=== PATIENT | female | born 1945 | race Caucasian/White ===

== ENCOUNTER → 2017-10-14 12:22 | Outpatient (CLI) | payer MEDICARE, SELFPAY ==
[2017-10-14 13:21] LABS: CREATININE 1.74 mg/dL (0.55-1.02); Estimated GFR 28.84 (mL/min/1.73m2); Potassium 4.8 mmol/L (3.5-5.1)
== END ==
PROVIDERS: PCP General Practice; Visit Provider General Practice
DX: I10 Essential (primary) hypertension (principal)
CPT/HCPCS: 36415; 82565; 84132

== ENCOUNTER 2018-02-21 09:21 | Inpatient (IN) | payer MEDICARE, SELFPAY ==
[2018-02-21 09:27] VITALS: BP 194/72; PULSE 60; RESP 20; TEMP 36.5; O2SAT 94
--- NOTE | 2018-02-21 09:44 | ED.GENADUL_ITS ---
Discharge Plan Discharge Details Chief Complaint: Nk/Back Pain Reason For Visit: BACK PAIN Admit Date/Time: 02/21/18 12:42 Admit Provider: Remy Contreras Attending Provider: Remy Contreras Primary Care Provider: Dru Armstrong ED Provider: Neil Thornton Discharge Data Discharge Date/Time-TO BE ENTERED AT DEPARTURE: 02/21/18 13:48 Medical Decision Making History and exam consistent with lumbar strain with possibility of disc herniation. Conflict arose with Flexeril do to peanut allergy, so prescribed Valium PO, Toradol IM 30mg, and lidocaine patch. Will CT lumbar spine. CT results discussed with Dr. Sharpe. No acute oseas pathology but worsening chronic pathology could be cause of acute back pain. Severe degenerative changes, greatest at L1-2 and L3-4 where there is severe central canal stenosis. The findings at L1-L2 have worsened when compared with 2015. I apprised pt. Patient continues to c/o moderate pain. We will have PT come down and consult and try to get patient to stand and walk. If successful we will ask HH to arrange for home PT. Pt agrees with POC. If not successful we will consult hospitalist for admission. Pt does live with her son but she tells me she is alone most of the day and questions what does she do when alone at home. PT was successful at having her stand at bedside. I assisted. She had moderate pain with one step. She could go home with PT but she does not have anyone to assist her during the day time. H&R is not an option being she only has Medicare. CM came down and tried to find someone to stay with her during the day but was unable to find someone. Her son will be off on vacation in couple days so it was recommended she be admitted observation for pain control. Dr. Contreras was agreeable and accepted patient for admission observation. Imaging Data Radiologic Study: Imaging: CT Scan Radiologist's impression: CT LUMBAR SPINE: Comparison is made with CT of the abdomen and pelvis dated 26 October 2014. Images were performed from T 11-12 through the lower sacrum. There is no evidence of an acute fracture or destructive bony lesion. Again noted are severe degenerative changes at L1-2 which shows some interval worsening when compared with the previous exam. There is minimal loss of disc height and prominent broad-based disc osteophytes encroaching in to the posterior aspect of the central canal, causing severe central canal stenosis as well as severe left neural foraminal narrowing. There is moderate right neural foraminal narrowing. At L3-4 there are similar appearing prominent broad based disc osteophytes with annular calcification again causing severe central canal stenosis as well as severe bilateral neural foraminal narrowing, right greater than left. There are small osteophytes at L4-5, combining with degenerative disc changes to produce neural foraminal narrowing. Severe degenerative changes are noted of the facets at L5-S1, causing bilateral neural foraminal narrowing. No acute disc herniation is seen. IMPRESSION: Severe degenerative changes, greatest at L1-2 and L3-4 where there is severe central canal stenosis. The findings at L1-L2 have worsened when compared with 2015. [id number]: Total DLP = 898.62 mGy-cm HPI General Mode of arrival: EMS . Date/Time Provider Initiated Documentation: 02/21/18 09:36 . Limitations to Documentation: no limitations . Information obtained by: patient . History of Present Illness 72 year old F presents to the emergency department with the chief complaint of back pain, described as moderate, HPI Narrative: 72 y/o female came in today via [facility] with c/o low back pain radiating down both legs. She denies any injury. She was walking yesterday during the day with her cane which is her usual with no back pain. Last evening she noticed her low back began to spasm causing pain making her feel unsteady. She switched to her walker. She tried NSAID and Tylenol without much benefit. This morning she tried to get out of bed and walk to the BR. She believed the pain to be much worse and she could not walk. She reports one episode of kelechi diarrhea last night times one but not incontinent. Related Data Home Medications Medication Instructions Recorded Confirmed aspirin 81 mg PO DAILY 02/23/14 02/21/18 atenolol 50 mg PO DAILY 02/23/14 02/21/18 atorvastatin [Lipitor] 80 mg PO DAILY 02/23/14 02/21/18 calcium carbonate-vitamin D3 1 tab PO DAILY 02/23/14 02/21/18 [Calcium 500 With D] hydrochlorothiazide 50 mg PO DAILY 02/23/14 02/21/18 insulin aspart U-100 [Novolog 2 units SQ TID 02/23/14 02/21/18 PenFill U-100 Insulin] insulin glargine [Lantus U-100 25 unit SUB-Q HS 02/23/14 02/21/18 Insulin] metformin 1,000 mg PO BID 02/23/14 02/21/18 insulin detemir U-100 [Levemir 29 unit SUBCUT .QHS 02/21/18 02/21/18 FlexTouch U-100 Insuln] Allergies Allergy/AdvReac Type Severity Reaction Status Date / Time codeine Allergy Severe Swelling/Ed Unverified 02/21/18 10:16 warner furosemide [From Lasix] Allergy Severe Swelling/Ed Unverified 02/21/18 10:16 warner morphine Allergy Severe Swelling/Ed Unverified 02/21/18 10:16 warner peanut Allergy Severe Unverified 02/21/18 10:16 tree nut Allergy Severe Unverified 02/21/18 10:16 acetaminophen [From Percocet] Allergy Intermediate ITCHY Unverified 02/21/18 10: 16 adhesive tape Allergy Intermediate Skin Rash Unverified 02/21/18 10:16 oxycodone HCl [From Percocet] Allergy Intermediate ITCHY Unverified 02/21/18 10: 16 apricot Allergy Unknown Uncoded 02/21/18 10:16 General Stated Complaint: Nk/Back Pain GERALDINE: 3 Review of Systems ENT Reports system reviewed and no additional complaints, except as docu Cardiovascular Reports system reviewed and no additional complaints, except as docu Respiratory Reports system reviewed and no additional complaints, except as docu Gastrointestinal Reports diarrhea Genitourinary Reports system reviewed and no additional complaints, except as docu Musculoskeletal Reports abnormal gait, Reports back pain and Reports radiating pain into limb Integumentary/Breasts Reports system reviewed and no additional complaints, except as docu Neurologic Reports system reviewed and no additional complaints, except as docu and Reports abnormal gait PFSH Spinal stenosis, lumbar (Acute) HTN (hypertension) (Chronic) Insulin dependent diabetes mellitus (Chronic) YARELY (obstructive sleep apnea) (Chronic) Biopsy, Temporal Artery (01/18/15) Colonoscopy - MAC (08/14/16) Family History Mother Heart disease Father Heart disease Lung cancer Brother Heart disease Medical History Spinal stenosis, lumbar (Acute) HTN (hypertension) (Chronic) Insulin dependent diabetes mellitus (Chronic) YARELY (obstructive sleep apnea) (Chronic) Social History Smoking/Tobacco Use Status: Never Surgical History Biopsy, Temporal Artery (01/18/15) Colonoscopy - MAC (08/14/16) Social History Smoking/Tobacco Use Status: Never Exam Const General: cooperative, healthy appearing, comfortable and no acute distress Nutritional Appearance: obese Orientation: alert, awake and oriented x3 HENMT Head: atraumatic Ears: hearing grossly normal bilaterally and external ears normal General nose exam: external nose normal Eyes General: appearance normal, both eyes and all related structures Neck Neck: full ROM and no lymphadenopathy Resp Effort & Inspection: normal respiratory effort Auscultation: clear to auscultation bilaterally Cardio Rate: regular rate Rhythm: regular rhythm GI Inspection: non-distended Palpation: soft and nontender Auscultation: normal bowel sounds Back/Spine/Pelvis Back: no CVA tenderness and back tenderness (across lumbar region) Cervical Spine: normal cervical lordosis, cervical ROM normal and No cervical spinal tenderness Thoracic/Lumbar Spine: thoracic and lumbar spine normal to inspection, pain with thoraco-lumbar ROM, paraspinal tenderness, thoraco-lumbar ROM limited, No thoracic spinal tenderness, lumbar spinal tenderness and straight leg raise positive Pelvis: no pain with anterior-posterior compression Sacroiliac joints: bilaterally by passive hyperextension of lower ext Sacrum: tenderness Coccyx: tenderness Skin General skin exam: no rashes or lesions noted Neuro General: alert, awake, oriented x3 and no focal motor deficits Cognition: normal cognition Speech: speech normal Gait: normal gait Motor: muscle tone normal throughout Sensory Exam: no sensory deficits noted Extrem General: normal to inspection, abnormal ROM (limited secondary to pain. Normal upper extremity ROM. ), normal capillary refill and no calf tenderness Psych Appearance: grossly normal Mental Status: mental status grossly normal Speech and Movement: speech and movement normal Mood: congruent mood Affect: normal affect Attitude: cooperative Thought Process: normal Thought Content: normal Insight: insight good Judgment: judgment good Course Vital Signs Temperature 36.5 C 02/21/18 09:27 Pulse 60 02/21/18 09:27 Respiratory Rate 20 02/21/18 09:27 Blood Pressure 194/72 H 02/21/18 09:27 Pulse Oximetry 94 L 02/21/18 09:27 Temperature 36.5 C 02/21/18 09:27 Temperature Source Temporal Artery Scan 02/21/18 09:27 Pulse 60 02/21/18 09:27 Respiratory Rate 20 02/21/18 09:27 Respiratory Effort Non-Labored 02/21/18 09:27 Blood Pressure 194/72 H 02/21/18 09:27 Blood Pressure Position Supine 02/21/18 09:27 Pulse Oximetry 94 L 02/21/18 09:27 Oxygen Delivery Method Room Air 02/21/18 09:27 Oxygen Flow Rate 0 02/21/18 09:27 Pain Level 10 02/21/18 09:27
[2018-02-21] MEDS: Diazepam 2 MG TAB PO (09:45)
[2018-02-21] MEDS: Ketorolac 30 MG/ML VIAL IM (09:45)
--- NOTE | 2018-02-21 10:09 | DI.CT_ITS ---
SYMPTOM/DIAGNOSIS: PAIN ACROSS BUTTOCKS AND DOWN BOTH LEGS CT LUMBAR SPINE: Comparison is made with CT of the abdomen and pelvis dated 26 October 2014. Images were performed from T 11-12 through the lower sacrum. There is no evidence of an acute fracture or destructive bony lesion. Again noted are severe degenerative changes at L1-2 which shows some interval worsening when compared with the previous exam. There is minimal loss of disc height and prominent broad-based disc osteophytes encroaching in to the posterior aspect of the central canal, causing severe central canal stenosis as well as severe left neural foraminal narrowing. There is moderate right neural foraminal narrowing. At L3-4 there are similar appearing prominent broad based disc osteophytes with annular calcification again causing severe central canal stenosis as well as severe bilateral neural foraminal narrowing, right greater than left. There are small osteophytes at L4-5, combining with degenerative disc changes to produce neural foraminal narrowing. Severe degenerative changes are noted of the facets at L5-S1, causing bilateral neural foraminal narrowing. No acute disc herniation is seen. IMPRESSION: Severe degenerative changes, greatest at L1-2 and L3-4 where there is severe central canal stenosis. The findings at L1-L2 have worsened when compared with 2015.
--- NOTE | 2018-02-21 11:51 | PT.INIE ---
Date of service: 02/21/18 Time of Service: 11:51 PT Notes Inpatient Physical Therapy Evaluation Date: 02/21/2018 Referring Doctor: Neil Thornton PT Orders: PT CONSULT: 72-year-old in the ED via ambulance for acute inability to walk due to back pain. Would like to discharge with home PT if successful evaluation ambulation here in the ED. Precautions: Fall precautions, back precautions Patient Profile/Admitting Diagnosis: Patient is a 72-year-old female presenting to the emergency department with sudden onset low back pain that started last night without evidence of trauma, lifting or fall. MD diagnosis lumbar strain, possible disc herniation. PMHX: Low back pain with sciatica left lower extremity, morbid obesity, arthritis, diabetes mellitus type 2, bilateral total knee arthroplasties, right rotator cuff repair, history of multiple fractures including ribs elbow and nose, pickwickian syndrome, obstructive sleep apnea, hypertension, congestive heart failure, hypercholesterolemia, hysterectomy Social History/Home Situation: Lives in [place] with her son 3-4 steps with railing to enter, no stairs inside. Baseline mobility independent gait with single-point cane household distances, does have front wheel walker normally does not use it however use it last night and this morning due to her back pain. Independent with ADLs. Equipment Owned/DME: Cane, FW W Subjective: Patient reports she has had this type of back pain in the past, but reports this is worse than her previous episode. She reports constant pain across lower lumbar spine with radiating pain down posterior bilateral legs left greater than right. Pain is primarily with positional changes and movement and use of lumbar paraspinal muscles. She is agreeable to PT consult. She states her son lives with her and works at [employer], so she is home alone during the day when he is working. She states she would not be able to get up to use the bathroom or move around by herself at this time due to her back pain and she is concerned about going home alone. Objective: General Observation: Lidocaine patch on lower lumbar spine Mental Status: A and O x3 Pain: Reports 10 out of 10 pain that is constant lower lumbar spine crossed hips, with radiating pain down posterior legs left greater than right Palpation: Patient tender to palpation lumbar paraspinals and lumbar spine L3 through L5, bilateral quadratus lumborum, bilateral gluteus medius left> right Special tests: Positive straight leg raise on left, negative slump test ROM: Right Upper Extremity: AROM shoulder flexion 90 degrees, elbow and wrist WNL Left Upper Extremity: AROM WNL Right Lower Extremity: AROM WFL Left Lower Extremity: AROM WFL Strength: Right Upper Extremity: 1/ 5 shoulder flexion, 4/5 bicep, 4/5 grinding machine operator Left Upper Extremity: 4/5 shoulder flexion, 4/5 bicep, 4/5 grinding machine operator Right Lower Extremity: 2/ 5 hip flexion with low back pain, 3/5 quad, 5/5 DF and PF Left Lower Extremity: 2/ 5 hip flexion with low back pain, 3/5 quad, 5/5 DF and PF Sensation: Sensation appears intact to light touch and proprioception throughout lumbar spinal region lateral hips and lower extremities, kinesthetic awareness and motor control appears intact. Bed Mobility/Transfers: Supine to sit: HOB 30 degrees, independent Sit to stand: CGA with FWW Stand to sit: SBA Sit to supine: Min assist for lower extremities due to high degree knee and low back pain Gait: CGA with FWW 2 steps forward and backward, 4 sidesteps to the left. Patient reporting constant low back pain with standing and gait training. Balance: Static Sitting: Normal Dynamic Sitting: Normal Static Standing: Fair Dynamic Standing: Fair Special Tests: Mobility Limitations Standardized Measure [facility] AM-PAC 6 clicks Basic Mobility Inpatient Short Form: Raw Score: 14 standardized Score: 38.10 CMS Score: 61.29% CMS Modifier: CL Informed Consent/Education: Patient instructed in purpose of PT consult and plan of care. Assessment: Patient is a 72-year-old female presenting to the emergency department with sudden onset low back pain that started last night without evidence of trauma, lifting or fall. MD diagnosis lumbar strain, possible disc herniation in setting of history Low back pain with sciatica left lower extremity, morbid obesity, arthritis, diabetes mellitus type 2, bilateral total knee arthroplasties, right rotator cuff repair. Patient presents with clinical signs and symptoms consistent with lumbar strain with sciatica left greater than right, as demonstrated by the following impairment level findings: Pain in lumbar spine, quadratus lumborum, gluteus medius, with radiating pain into posterior lower extremities left greater than right. Pain is affecting her ability to sit at the edge of the bed stand with front wheel walker, she is only able to take 2 steps at this time due to pain. She is unable to do stairs due to pain. Patient should be able to return to home setting with home PT follow-up and pain management strategies, concern is that patient would be home alone due to her son working, and she is unable to get herself up to independently toilet, change position or get food at this time due to back pain. Recommend support of case management to see if son or family can be with her at discharge until pain management improves and home PT is initiated. Patient has all equipment needed at home set. Impairments are contributing to the following functional limitations: AMPAC score CMS Score: 61.29% Patient is assessed as a High [id number] complexity based on the following: History: See above Examination: See above Presentation: Evolving Decision Making: AMPAC score CMS Score: 61.29% Goals: Not applicable Plan of Care/Treatment Plan: PT eval only DISCHARGE RECOMMENDATIONS: Home with home PT if family can be present at discharge and be with her for the first 48 hours, until pain has improved and mobility has improved. Patient has all DME Patient has received PT at [facility] [place] for similar problem in 2017 TREATMENT CODE/TIME: 45 minutes IE 12:15 G Codes in the area mobility of walking and moving around: current status [id number] CL; projected status GP [id number]. Discharge status (if discharging) GP [id number] CL based on AMPAC score CMS Score: 61.29% Halle Bradley PT Disclaimer: This note was created using [employer] voice recognition software. It was reviewed for major content. However, there may be multiple small discrepancies and errors due to the voice recognition aspects of the software.
--- NOTE | 2018-02-21 12:05 | IN_ITS ---
Date of service: 02/21/18 Time of Service: 11:51 PT Notes Inpatient Physical Therapy Evaluation Date: 02/21/2018 Referring Doctor: Neil Thornton PT Orders: PT CONSULT: 72-year-old in the ED via ambulance for acute inability to walk due to back pain. Would like to discharge with home PT if successful evaluation ambulation here in the ED. Precautions: Fall precautions, back precautions Patient Profile/Admitting Diagnosis: Patient is a 72-year-old female presenting to the emergency department with sudden onset low back pain that started last night without evidence of trauma, lifting or fall. MD diagnosis lumbar strain, possible disc herniation. PMHX: Low back pain with sciatica left lower extremity, morbid obesity, arthritis, diabetes mellitus type 2, bilateral total knee arthroplasties, right rotator cuff repair, history of multiple fractures including ribs elbow and nose , pickwickian syndrome, obstructive sleep apnea, hypertension, congestive heart failure, hypercholesterolemia, hysterectomy Social History/Home Situation: [place] in [place] with her son 3-4 steps with railing to enter, no stairs inside. Baseline mobility independent gait with single-point cane household distances, does have front wheel walker normally does not use it however use it last night and this morning due to her back pain. Independent with ADLs. Equipment Owned/DME: Cane, FW W Subjective: Patient reports she has had this type of back pain in the past, but reports this is worse than her previous episode. She reports constant pain across lower lumbar spine with radiating pain down posterior bilateral legs left greater than right. Pain is primarily with positional changes and movement and use of lumbar paraspinal muscles. She is agreeable to PT consult. She states her son lives with her and works at [employer], so she is home alone during the day when he is working. She states she would not be able to get up to use the bathroom or move around by herself at this time due to her back pain and she is concerned about going home alone. Objective: General Observation: Lidocaine patch on lower lumbar spine Mental Status: A and O x3 Pain: Reports 10 out of 10 pain that is constant lower lumbar spine crossed hips , with radiating pain down posterior legs left greater than right Palpation: Patient tender to palpation lumbar paraspinals and lumbar spine L3 through L5, bilateral quadratus lumborum, bilateral gluteus medius left> right Special tests: Positive straight leg raise on left, negative slump test ROM: Right Upper Extremity: AROM shoulder flexion 90 degrees, elbow and wrist WNL Left Upper Extremity: AROM WNL Right Lower Extremity: AROM WFL Left Lower Extremity: AROM WFL Strength: Right Upper Extremity: 1/ 5 shoulder flexion, 4/5 bicep, 4/5 link cutter Left Upper Extremity: 4/5 shoulder flexion, 4/5 bicep, 4/5 link cutter Right Lower Extremity: 2/ 5 hip flexion with low back pain, 3/5 quad, 5/5 DF and PF Left Lower Extremity: 2/ 5 hip flexion with low back pain, 3/5 quad, 5/5 DF and PF Sensation: Sensation appears intact to light touch and proprioception throughout lumbar spinal region lateral hips and lower extremities, kinesthetic awareness and motor control appears intact. Bed Mobility/Transfers: Supine to sit: HOB 30 degrees, independent Sit to stand: CGA with FWW Stand to sit: SBA Sit to supine: Min assist for lower extremities due to high degree knee and low back pain Gait: CGA with FWW 2 steps forward and backward, 4 sidesteps to the left. Patient reporting constant low back pain with standing and gait training. Balance: Static Sitting: Normal Dynamic Sitting: Normal Static Standing: Fair Dynamic Standing: Fair Special Tests: Mobility Limitations Standardized Measure [facility] AM-PAC 6 clicks Basic Mobility Inpatient Short Form: Raw Score: 14 standardized Score: 38.10 CMS Score: 61.29% CMS Modifier: CL Informed Consent/Education: Patient instructed in purpose of PT consult and plan of care. Assessment: Patient is a 72-year-old female presenting to the emergency department with sudden onset low back pain that started last night without evidence of trauma, lifting or fall. MD diagnosis lumbar strain, possible disc herniation in setting of history Low back pain with sciatica left lower extremity, morbid obesity, arthritis, diabetes mellitus type 2, bilateral total knee arthroplasties, right rotator cuff repair. Patient presents with clinical signs and symptoms consistent with lumbar strain with sciatica left greater than right, as demonstrated by the following impairment level findings: Pain in lumbar spine, quadratus lumborum, gluteus medius, with radiating pain into posterior lower extremities left greater than right. Pain is affecting her ability to sit at the edge of the bed stand with front wheel walker, she is only able to take 2 steps at this time due to pain. She is unable to do stairs due to pain. Patient should be able to return to home setting with home PT follow-up and pain management strategies, concern is that patient would be home alone due to her son working, and she is unable to get herself up to independently toilet, change position or get food at this time due to back pain. Recommend support of case management to see if son or family can be with her at discharge until pain management improves and home PT is initiated. Patient has all equipment needed at home set. Impairments are contributing to the following functional limitations: AMPAC score CMS Score: 61.29% Patient is assessed as a High [id number] complexity based on the following: History: See above Examination: See above Presentation: Evolving Decision Making: AMPAC score CMS Score: 61.29% Goals: Not applicable Plan of Care/Treatment Plan: PT eval only DISCHARGE RECOMMENDATIONS: Home with home PT if family can be present at discharge and be with her for the first 48 hours, until pain has improved and mobility has improved. Patient has all DME Patient has received PT at [facility] [place] for similar problem in 2017 TREATMENT CODE/TIME: 45 minutes IE 12:15 G Codes in the area mobility of walking and moving around: current status [id number] CL; projected status GP [id number]. Discharge status (if discharging) GP [id number] CL based on AMPAC score CMS Score: 61.29% Halle Bradley PT Disclaimer: This note was created using [employer] voice recognition software. It was reviewed for major content. However, there may be multiple small discrepancies and errors due to the voice recognition aspects of the software.
--- NOTE | 2018-02-21 13:33 | W.PM.HP.N ---
Date of service: 02/21/18 Time of Service: 13:33 Assessment and Plan (1) Type II diabetes mellitus: Current visit: No Status: Chronic Carbohydate counting diet. Continue home Levemir and Novolog in addition to sliding scale for meal coverage. Fingersticks ACHS (2) Hypertension: Current visit: No Status: Chronic Hypertensive upon presentation, however I suspect this is related to pain response. No med changes. Continue BB, thiazide diuretic. Could consider adding CCB if BP remains elevated. Would avoid ACEI/ARB due to poor renal function with baseline Cr 1.7-2. (3) Hyperlipidemia: Current visit: No Status: Chronic Continue statin, ADA diet. (4) Morbid obesity: Current visit: No Status: Chronic Would benefit from weight loss in the management of her chronic medical and orthopedic problems. (5) Obstructive sleep apnea: Current visit: No Status: Suspected Currently not treated with CPAP. Lost to follow up with pulmonology. This is something that can be managed through her PCP. (6) Low back pain: Current visit: Yes Status: Acute With radiculopathy/muscle spasms and severe spinal stenosis seen on CT imaging at L1-2 and L3-4. Noticed minimal improvement with valium, lidoderm patch. Will put on prednisone burst. PT/OT consult. History of Present Illness Chief Complaint: Low Back Pain Narrative: Jane is a 72-year-old woman with multiple medical comorbidities notable for morbid obesity, insulin-dependent type 2 diabetes, hypertension, hyperlipidemia, history of congestive heart failure (EF 60% 2013), hx lumbar spinal stenosis who presents to the ER today via EMS with complaints of acute on chronic low back pain. Jane has chronic LBP that became acutely worse last night. Does not recall a specific injury. Had some difficulty ambulating and required the assistance of a walker. Last night she had one episode of watery diarrhea, but denies any incontinence. The pain is described as stabbing and radiates down both legs. Last night had some associated numbness in both of her feet, however this has since resolved. Was having some muscle spasm, however nothing currently, otherwise denies associated s/sx. In the ER she was evaluated by PT and had difficulty ambulating. Lumbar CT shows severe degenerative changes, greatest at L1-L2 and L3-L4 where there is severe central canal stenosis. The findings at L1 and L2 have worsened when compared with imaging obtained in 2015. Review of Systems Review of Systems 10 point ROS obtained with pertinent positives noted in HPI, otherwise negative PFSH Spinal stenosis, lumbar (Acute) HTN (hypertension) (Chronic) Insulin dependent diabetes mellitus (Chronic) YARELY (obstructive sleep apnea) (Chronic) Biopsy, Temporal Artery (01/18/15) Colonoscopy - MAC (08/14/16) Family History Mother Heart disease Father Heart disease Lung cancer Brother Heart disease Medical History Spinal stenosis, lumbar (Acute) HTN (hypertension) (Chronic) Insulin dependent diabetes mellitus (Chronic) YARELY (obstructive sleep apnea) (Chronic) Social History Smoking/Tobacco Use Status: Never Surgical History Biopsy, Temporal Artery (01/18/15) Colonoscopy - MAC (08/14/16) Social History Smoking/Tobacco Use Status: Never Meds Home Medications Medication Instructions Recorded Confirmed Type aspirin 81 mg PO DAILY 02/23/14 02/21/18 History atenolol 50 mg PO DAILY 02/23/14 02/21/18 History atorvastatin [Lipitor] 80 mg PO DAILY 02/23/14 02/21/18 History calcium carbonate-vitamin D3 1 tab PO DAILY 02/23/14 02/21/18 History [Calcium 500 With D] hydrochlorothiazide 50 mg PO DAILY 02/23/14 02/21/18 History insulin aspart U-100 [Novolog 2 units SQ TID 02/23/14 02/21/18 History PenFill U-100 Insulin] insulin glargine [Lantus U-100 25 unit SUB-Q HS 02/23/14 02/21/18 History Insulin] metformin 1,000 mg PO BID 02/23/14 02/21/18 History insulin detemir U-100 [Levemir 29 unit SUBCUT .QHS 02/21/18 02/21/18 History FlexTouch U-100 Insuln] Allergies Allergy/AdvReac Type Severity Reaction Status Date / Time codeine Allergy Severe Swelling/Ed Unverified 02/21/18 10:16 warner furosemide [From Lasix] Allergy Severe Swelling/Ed Unverified 02/21/18 10:16 warner morphine Allergy Severe Swelling/Ed Unverified 02/21/18 10:16 warner peanut Allergy Severe Unverified 02/21/18 10:16 tree nut Allergy Severe Unverified 02/21/18 10:16 acetaminophen [From Percocet] Allergy Intermediate ITCHY Unverified 02/21/18 10:16 adhesive tape Allergy Intermediate Skin Rash Unverified 02/21/18 10:16 oxycodone HCl [From Percocet] Allergy Intermediate ITCHY Unverified 02/21/18 10:16 apricot Allergy Unknown Uncoded 02/21/18 10:16 Exam Narrative Exam Narrative: General: 72 yo morbidly obese female. Well developed and well nourished. No acute distress. A/Ox3. Pleasant and cooperative. HEENT: Normocephalic, Atraumatic. Conjunctiva clear, sclera non-icteric. PERRL. EOMI. Moist mucous membranes, oropharynx clear. Neck supple, no JVD, thyromegaly or lymphadenopathy. Cardiovascular: Regular rate and rhythm, S1S2, no S3 or S4. No murmur, rub, gallop. Respiratory: Chest expansion symmetrical, respirations unlabored. Lungs diminished , no adventitious breath sounds. GI: Abdomen round, Obese, soft, non-tender to palpation. Normoactive bowel sounds in all 4 quadrants. No hepatosplenomegaly or prominent masses. : deferred Extremities: Lower extremities without deformity or edema Neurological: non-focal. CN 2-12 grossly intact. Musckuloskeletal: Paraspinal tenderness lumbar spine, decreased ROM, + straight leg raise BLE Results Last Vital Signs Temp 36.5 C 02/21/18 09:27 Pulse 60 02/21/18 09:27 Resp 20 02/21/18 09:27 BP 194/72 H 02/21/18 09:27 Pulse Ox 94 L 02/21/18 09:27
[2018-02-21 13:50] VITALS: BP 145/70; PULSE 64; RESP 20; TEMP 36.9; O2SAT 994
[2018-02-21 13:51] VITALS: BP 192/45; PULSE 63; RESP 18; TEMP 37.2; O2SAT 93
[2018-02-21 14:33] VITALS: BP 192/45; PULSE 62; RESP 18; TEMP 37.2; O2SAT 93
--- NOTE | 2018-02-21 15:02 | CMPROGNOTE_ITS ---
- If Service Date Differs Date of service: 02/21/18 Time of Service: 15:00 Care Management Progress Note JUDAH received a call from Jonathan Thornton NP, as Jane is unable to ambulate with PT at this time due to pain and weakness. JUDAH spoke with Jane whom states that her son works at [employer] and will not be home today or tomorrow evening. Discussed pain management with OLLIE Castillo, whom states that he feels as though Mohan should be admitted observation for pain management. Mohan is in agreement with this plan.
[2018-02-21 16:00] VITALS: BP 157/76; PULSE 64; RESP 19; TEMP 36.9; O2SAT 92
[2018-02-21] MEDS: metFORMIN 500 MG TAB 1000 MG PO (17:21)
[2018-02-21] MEDS: Insulin Aspart 300 UNITS/3 ML PEN SC ×2 (17:25→17:26)
[2018-02-21] MEDS: predniSONE 20 MG TAB 60 MG PO (18:14)
[2018-02-21] MEDS: Heparin 5,000 UNITS/ML VIAL 5000 UNITS SC (18:14)
--- NOTE | 2018-02-21 19:06 | NUR.NOTE ---
patient has lidnocaine patch to the lower back
[2018-02-21] MEDS: traMADol 50 MG TAB 100 MG PO (21:42)
[2018-02-21] MEDS: LIDOCAINE Patch Removal 1 EACH TD (22:21)
[2018-02-22] VITALS (9 sets, daily range): BP systolic 121–185; BP diastolic 62–74; PULSE 63–74; RESP 18–20; TEMP 35.9–36.3; O2SAT 90–98
[2018-02-22] MEDS: Heparin 5,000 UNITS/ML VIAL 5000 UNITS SC ×3 (02:41→17:09)
[2018-02-22] MEDS: traMADol 50 MG TAB 100 MG PO (04:11)
[2018-02-22 07:45] LABS: HCT 37.1 % (36.0-46.0); HGB 11.7 g/dL (12.0-15.5); Mean Corp. HGB Concentration 31.5 g/dL (32.0-36.0); Mean Corpuscular Hemoglobin 29.4 pg (27.0-33.0); Mean Corpuscular Volume 93.2 fL (80-95); Mean Platelet Volume 10.7 fL (8.0-11.0); Platelet Count 237 x1000/uL (130-400); RBC 3.98 m/cumm (4.00-5.20); White Blood Cell Count 7.22 k/cumm (4.4-10.8)
[2018-02-22] MEDS: Insulin Aspart 300 UNITS/3 ML PEN SC ×6 (08:29→17:10)
[2018-02-22] MEDS: Atenolol 50 MG TAB PO (08:32)
[2018-02-22] MEDS: metFORMIN 500 MG TAB 1000 MG PO ×2 (08:33→17:09)
[2018-02-22] MEDS: predniSONE 20 MG TAB 60 MG PO (08:33)
[2018-02-22] MEDS: Docusate Sodium 100 MG CAP PO (09:14)
[2018-02-22] MEDS: Aspirin 81 MG CHEW PO (10:01)
--- NOTE | 2018-02-22 11:33 | OT.INIE ---
Occupational Therapy Notes Inpatient Occupational Therapy Evaluation Date: 02/22/18 Referring Doctor:Nancy Hutton OT Orders: Assess ability to perform ADLs Precautions: Fall Precautions, Back Precautions PATIENT PROFILE/ADMITTING DIAGNOSIS: Pt is a 72 year old female who was admitted to [facility] through the ER on 02/21/18 after pt was brought to [facility] via ambulance for LBP. Pt is currently being seen for observation of pain control. Past Medical History: Low back pain with sciatica left lower extremity, morbid obesity, arthritis, diabetes mellitus type 2, bilateral total knee arthroplasties, right rotator cuff repair, history of multiple fractures including ribs elbow and nose, pickwickian syndrome, obstructive sleep apnea, hypertension, congestive heart failure, hypercholesterolemia, hysterectomy. Social History/Home Situation: Pt lives in a private home with her son. She reports that she is fairly (I) with ADL/IADL routines reporting that she no longer drives due to CHF and that she needs (A) with washing her back, and (B) LE, donning and doffing (B) socks. Otherwise she reports she is able to perform everything (I). Equipment owned/DME: Cane, FWW, grab bars SUBJECTIVE: Pt was sitting in bed when OT arrived and agreeable to OT session. OBJECTIVE: General Observation: IV (L) UE Mental Status: A&Ox3 Pain: 4-5/10 pain in lower back ROM: RUE Shoulder flexion limited to 100*, elbow and wrist WNL L UE AROM WNL STRENGTH: RUE 2/5 shoulder flexion, 4/5 bicep, 4/5 bit sharpener operator LUE 4/5 throughout FUNCTIONAL MOBILITY/ADLS: Transfers Supine-sit (I) Sit-Stand S, FWW Stand-sit S, FWW Bed-Chair S, FWW Chair-bed S, FWW BATHING Sitting in chair in hospital setting Bathing UE (I) face, (B) UE, abdomen, Max (A) back Bathing LE (I) pelvic area, (I) upper thighs, Max (A) lower legs DRESSING Dressing UE (I) hospital gown Dressing LE Max (A) socks which pt reports is baseline. BALANCE: Static sitting Normal Dynamic Sitting Normal Static Standing Good Dynamic Standing Good SPECIAL TESTS: Daily Activity Limitations Standardized Measure [facility] AM -PAC ?6 clicks? Daily Activity Inpatient Short Form: Raw score: 21 Standardized score: 44.27 CMS score: 32.79% CMS modifier: CJ INFORMED CONSENT/EDUCATION: Pt instructed in purpose of OT Consult and plan of care. ASSESSMENT: Patient is a 72-year-old female referred to occupational therapy services with diagnosis of LBP who was admitted via ambulance to the ER on 02/21/18 in setting of Low back pain with sciatica left lower extremity, morbid obesity, arthritis, diabetes mellitus type 2, bilateral total knee arthroplasties, right rotator cuff repair, history of multiple fractures including ribs elbow and nose, pickwickian syndrome, obstructive sleep apnea, hypertension, congestive heart failure, hypercholesterolemia, hysterectomy. Pt was seen for OT consult only as pt demonstrated baseline (I) in ADL routine per pt report. OT recommends the pt return home with home OT. Pt was seen at [facility] previously for related issue. D/C pt from skilled OT services. AMPAC score 21, CMS score 32.79% Patient is assessed as a Moderate 13407 complexity based on the following: History: See Above Examination: See Above Presentation: Evolving Decision Making: AMPAC score 21, CMS score 32.79% GOALS N/A PLAN OF CARE/TREATMENT PLAN: OT consult only DISCHARGE RECOMMENDATIONS Home when medically cleared per MD with OT with family member Recommend shower chair to increase pts safety in bathing routine. TREATMENT TIME/MINUTES/CODES 40 min IE, Self care x2, (09:40) G Codes in the area of self- : washing oneself, toileting, dressing, eating and drinking, current status GO [id number] CJ projected status GO [id number]. Discharge status (if discharging) GO [id number]. Based on AMPAC score 21, CMS score 32.79%. Azul Stoll OTR/Jh
--- NOTE | 2018-02-22 11:49 | OTIE_ITS ---
Occupational Therapy Notes Inpatient Occupational Therapy Evaluation Date: 02/22/18 Referring Doctor:Nancy Hutton OT Orders: Assess ability to perform ADLs Precautions: Fall Precautions, Back Precautions PATIENT PROFILE/ADMITTING DIAGNOSIS: Pt is a 72 year old female who was admitted to [facility] through the ER on 02/21/18 after pt was brought to [facility] via ambulance for LBP. Pt is currently being seen for observation of pain control. Past Medical History: Low back pain with sciatica left lower extremity, morbid obesity, arthritis, diabetes mellitus type 2, bilateral total knee arthroplasties, right rotator cuff repair, history of multiple fractures including ribs elbow and nose, pickwickian syndrome, obstructive sleep apnea, hypertension, congestive heart failure, hypercholesterolemia, hysterectomy. Social History/Home Situation: Pt lives in a private home with her son. She reports that she is fairly (I) with ADL/IADL routines reporting that she no longer drives due to CHF and that she needs (A) with washing her back, and (B) LE, donning and doffing (B) socks. Otherwise she reports she is able to perform everything (I). Equipment owned/DME: Cane, FWW, grab bars SUBJECTIVE: Pt was sitting in bed when OT arrived and agreeable to OT session. OBJECTIVE: General Observation: IV (L) UE Mental Status: A&Ox3 Pain: 4-5/10 pain in lower back ROM: RUE Shoulder flexion limited to 100*, elbow and wrist WNL L UE AROM WNL STRENGTH: RUE 2/5 shoulder flexion, 4/5 bicep, 4/5 supervisor steel division LUE 4/5 throughout FUNCTIONAL MOBILITY/ADLS: Transfers Supine-sit (I) Sit-Stand S, FWW Stand-sit S, FWW Bed-Chair S, FWW Chair-bed S, FWW BATHING Sitting in chair in hospital setting Bathing UE (I) face, (B) UE, abdomen, Max (A) back Bathing LE (I) pelvic area, (I) upper thighs, Max (A) lower legs DRESSING Dressing UE (I) hospital gown Dressing LE Max (A) socks which pt reports is baseline. BALANCE: Static sitting Normal Dynamic Sitting Normal Static Standing Good Dynamic Standing Good SPECIAL TESTS: Daily Activity Limitations Standardized Measure [facility] AM -PAC ?6 clicks? Daily Activity Inpatient Short Form: Raw score: 21 Standardized score: 44.27 CMS score: 32.79 % CMS modifier: CJ INFORMED CONSENT/EDUCATION: Pt instructed in purpose of OT Consult and plan of care. ASSESSMENT: Patient is a 72-year-old female referred to occupational therapy services with diagnosis of LBP who was admitted via ambulance to the ER on 02/21 in setting of Low back pain with sciatica left lower extremity, morbid obesity, arthritis, diabetes mellitus type 2, bilateral total knee arthroplasties, right rotator cuff repair, history of multiple fractures including ribs elbow and nose, pickwickian syndrome, obstructive sleep apnea, hypertension, congestive heart failure, hypercholesterolemia, hysterectomy. Pt was seen for OT consult only as pt demonstrated baseline (I) in ADL routine per pt report. OT recommends the pt return home with home OT. Pt was seen at [facility] previously for related issue. D/C pt from skilled OT services. AMPAC score 21, CMS score 32.79% Patient is assessed as a Moderate 35382 complexity based on the following: History: See Above Examination: See Above Presentation: Evolving Decision Making: AMPAC score 21, CMS score 32.79% GOALS N/A PLAN OF CARE/TREATMENT PLAN: OT consult only DISCHARGE RECOMMENDATIONS Home when medically cleared per MD with OT with family member Recommend shower chair to increase pts safety in bathing routine. TREATMENT TIME/MINUTES/CODES 40 min IE, Self care x2, (09:40) G Codes in the area of self- : washing oneself, toileting, dressing, eating and drinking, current status GO [id number] CJ projected status GO [id number]. Discharge status (if discharging) GO [id number]. Based on AMPAC score 21, CMS score 32.79%. Azul Stoll OTR/Jh
--- NOTE | 2018-02-22 15:38 | CHAPLAIN ---
Mohan was sitting up in her chair when I visited. She said she was able to move from her bed to the chair, but that was about it. When I asked about family supports, she spoke about her son who is the software development manager of the meat department at [employer], and that he has to work late tonight, so likely won't visit.
--- NOTE | 2018-02-22 16:32 | PDOC.CMIN ---
- If Service Date Differs Date of service: 02/22/18 Time of Service: 16:32
--- NOTE | 2018-02-22 16:45 | W.PM.PROGNOT ---
Date of Service Date of service: 02/22/18 Time of Service: 11:45 Assessment and Plan (1) Low back pain: Current visit: Yes Status: Acute With radiculopathy and muscle spasms. She has severe spinal stenosis seen on CT imaging at L1-2 and L3-4. Appears to be improving with current treatment. Continue prednisone, tramadol, Soma, po/iv APAP. Continue PT. Likely for discharge home tomorrow. (2) Hypertension: Current visit: No Status: Chronic Blood pressure in acceptable range. Likely elevated on admission due to pain response. Continue BB, thiazide diuretic. Continue to monitor Blood pressure. (3) Obstructive sleep apnea: Current visit: No Status: Suspected She did have a CPAP at home but has not been able to follow up with pulmonology. Will order CPAP here. She will need to follow up with pulmonology as an outpatient. (4) DVT prophylaxis: Current visit: Yes Status: Acute Subcutaneous heparin. (5) Discharge planning issues: Current visit: Yes Status: Acute She is a FULL code. She will likely be ready for discharge tomorrow. She will need home PT/OT. This case was discussed with Dr. Contreras who is in agreement. Subjective Interval history since last seen: Jane is a 72-year-old woman with multiple medical comorbidities notable for morbid obesity, insulin-dependent type 2 diabetes, hypertension, hyperlipidemia, history of congestive heart failure (EF 60% 2013), hx lumbar spinal stenosis who presents to the ER yesterday via EMS with complaints of acute on chronic low back pain. She did not recall any specific injury. She had a Lumbar CT which showed severe degenerative changes, greatest at L1-L2 and L3-L4 where there is severe central canal stenosis. The findings at L1 and L2 had worsened when compared with imaging obtained in 2015. She was evaluated by PT and was noted to have difficulty with ambulation. She was admitted to the med/surg floor for observation and further treatment. She reports that her back pain is improving with the current treatments. She continues to have low back pain with radiculopathy especially down her left leg when standing. She denies any other concerns, she has no shortness of breath, coughing, wheezing, no chest pain/pressure, palpitations, she is eating and drinking without difficulty. She lives with her son, who will help care for her when she is ready for discharge home. Exam Narrative Exam Narrative: General: 72 yo obese female. Well developed and well nourished. In no acute distress. A/Ox3. Pleasant and cooperative. HEENT: Normocephalic, Atraumatic. Conjunctiva clear, sclera non-icteric. Pupils are equal and round. Moist mucous membranes. Neck: supple, no JVD. Cardiovascular: Regular rate and rhythm, S1S2, no S3 or S4. No murmur, rub, gallop. Respiratory: Respirations even and unlabored. Lungs diminished throughout. No rales, rhonchi or wheeze. GI: Abdomen round, Obese, soft, non-tender to palpation. Normoactive bowel sounds in all 4 quadrants. No prominent masses. Extremities: Lower extremities without clubbing, cyanosis or edema Neurological: non-focal. CN 2-12 grossly intact. Musckuloskeletal: Paraspinal tenderness lumbar spine, + straight leg raise left. Objective Objective Clinical Data: Abnormal lab results 02/22/18 Range/Units 06:15 RBC 3.98 L (4.00-5.20) m/cumm Hgb 11.7 L (12.0-15.5) g/dL MCHC 31.5 L (32.0-36.0) g/dL Vital Signs Temperature 36.3 C L 02/22/18 07:35 Temperature Source Tympanic 02/22/18 07:35 Pulse 63 02/22/18 13:05 Pulse Rhythm Regular 02/22/18 15:52 Respiratory Rate 19 02/22/18 07:35 Respiratory Effort 02/22/18 15:52 Respiratory Depth Normal 02/22/18 15:52 Respiratory Pattern Normal 02/22/18 15:52 Blood Pressure 121/66 02/22/18 13:05 Blood Pressure Position Supine 02/21/18 09:27 Pulse Oximetry 96 02/22/18 13:05 Oxygen Delivery Method Nasal Cannula 02/22/18 13:05 Oxygen Flow Rate 2 02/22/18 13:05 Pain Level 6 02/22/18 07:35 Comment 02/21/18 14:33 Intake & Output 02/21/18 02/22/18 02/22/18 23:59 11:59 23:59 Intake Total 980 / 980 490 / 490 240 / 240 Output Total 100 / 100 400 / 400 Balance 880 / 880 90 / 90 240 / 240 Weight 99.337 kg 106.1 kg Intake: Oral 980 / 980 490 / 490 240 / 240 Output: Urine 100 / 100 400 / 400 Other: Urine Color Yellow Yellow Urine Appearance Clear Clear Urine Odor Normal Comment Some spilled onto the bed pad, the amount in ml's after spill is 200 cc's. Voiding Methods Incontinent Bedpan Laboratory Results WBC 7.22 k/cumm (4.4-10.8) 02/22/18 06:15 RBC 3.98 m/cumm (4.00-5.20) L 02/22/18 06:15 Hgb 11.7 g/dL (12.0-15.5) L 02/22/18 06:15 Hct 37.1 % (36.0-46.0) 02/22/18 06:15 MCV 93.2 fL (80-95) 02/22/18 06:15 MCH 29.4 pg (27.0-33.0) 02/22/18 06:15 MCHC 31.5 g/dL (32.0-36.0) L 02/22/18 06:15 RDW 14.0 % (11.7-14.6) 02/22/18 06:15 Plt Count 237 x1000/uL (130-400) 02/22/18 06:15 MPV 10.7 fL (8.0-11.0) 02/22/18 06:15
--- NOTE | 2018-02-22 17:13 | PDOC.CMIN ---
- If Service Date Differs Date of service: 02/22/18 Time of Service: 17:13 Care Management Initial Assess REASON FOR HOSPITALIZATION:: Back pain PAST MEDICAL HISTORY/PAST SURGICAL HISTORY:: Hypertension, insulin dependent diabetes, obstructive sleep apnea, spinal stenosis. PREVIOUS FUNCTIONAL STATUS/SOCIAL/FAMILY SUPPORTS:: Jane lives at home with her son [place]di[place] in [place] [facility]. 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 She is independent with her ADLs, her son provide her transportation. She does use a walker and cane at home. CURRENT FUNCTIONAL STATUS:: Jane sitting up in the chair, she states her pain is 5 out of 10. She understands her treatment plan, including pain management. She anticipates returning home tomorrow with her son who will pick her up at time of discharge. She will benefit from home health PT and OT at time of discharge. ADVANCE DIRECTIVES:: None on file she would like to complete prior to discharge. Has patient been provided with information about the portal?: Yes Did the patient sign up for the portal?: No CODE STATUS:: Full Code INSURANCE COVERAGE / FINANCIAL ISSUES:: Medicare, financial assistance CURRENT HOME/COMMUNITY SERVICES/EQUIPMENT:: No current services at home. She has a walker, cane, CPAP which she reports she does not use. PRIMARY CARE PHYSICIAN:: Dr. Armstrong POTENTIAL DISCHARGE NEEDS:: Follow-up appointment with primary care scheduled prior to discharge, referral to home health for PT and OT. PATIENT/FAMILY EDUCATION NEEDS:: Discharge education, limitations, follow-up plan of care, ask me 3 education and self-management discussion. ANTICIPATED BARRIERS TO DISCHARGE:: Availability of support person in the home to assist patient during acute phase of back pain, and management of ADLs. TRANSPORTATION:: Jane reports that she will transport home with her son via private car at time of discharge. PLAN:: Jane, will be discharged home when medically ready per provider. Anticipate discharge in the next 24 hours. She remains observation status. CM to assist patient in understanding and completion of advance directives prior to discharge. Jane will be discharged home with home health services, steroid taper, and plan to manage pain.
[2018-02-22] MEDS: Atorvastatin 40 MG TAB 80 MG PO (21:17)
[2018-02-22] MEDS: Normal Saline Flush 10 ML SYR IVP (21:23)
[2018-02-23] VITALS (13 sets, daily range): BP systolic 111–150; BP diastolic 47–70; PULSE 32–64; RESP 18–24; TEMP 36.6–36.7; O2SAT 88–98
[2018-02-23] MEDS: Heparin 5,000 UNITS/ML VIAL 5000 UNITS SC ×3 (02:02→20:20)
[2018-02-23] MEDS: traMADol 50 MG TAB 100 MG PO ×2 (05:33→12:08)
[2018-02-23] MEDS: Insulin Aspart 300 UNITS/3 ML PEN SC ×4 (08:42→17:16)
[2018-02-23] MEDS: metFORMIN 500 MG TAB 1000 MG PO ×2 (08:44→17:17)
[2018-02-23] MEDS: Docusate Sodium 100 MG CAP PO (08:45)
[2018-02-23] MEDS: predniSONE 20 MG TAB 60 MG PO (08:45)
[2018-02-23] MEDS: Aspirin 81 MG CHEW PO (08:46)
--- NOTE | 2018-02-23 11:14 | W.INDIABCONS ---
Date of service: 02/23/18 Time of Service: 11:14 Diabetes Inpatient Consult DESCRIPTION/ASSESSMENT: Appreciate diabetes consult for Jane Walker who is hospitalized with back pain. BMI 42 A1c 6.7 for less for past 2 years. Blood sugars this hospitalization 94 this AM otherwise 163-254 taking 2 units mealtime insulin to cover food and sensitive insulin correction in addition to basal insulin at 29units and Metformin. She is eating 30-50 grams carb when recorded. Jane has restarted her Prednisone 60u daily here. Met with Jane regarding her self management at home. She monitors blood sugars with each meal, stating her fingers are numb. She denies symptoms of hypoglycemia. She states she has had a weight gain of 20 pounds however it is not of any concern to her at this time. She does not feel she needs self management support at this time. Blood sugars did increase by noon possibly due to steroid effect but returned to fasting level by supper. INTERVENTION: Jane is complimented on her glycemic control based on A1c. Blood sugars close to goal for inpatient blood sugars. No intervention suggested at this time. Jane knows how to contact us if desired. PLAN: Will follow blood sugars. Time Spent in Nutritional Counseling and Treatment: na
[2018-02-23] MEDS: Normal Saline Flush 10 ML SYR IVP (12:06)
[2018-02-23] MEDS: Polyethylene Glycol 3350 17 GM PACKET PO (12:08)
--- NOTE | 2018-02-23 12:20 | W.PM.PROGNOT ---
Date of Service Date of service: 02/23/18 Time of Service: 12:21 Assessment and Plan (1) Low back pain: Current visit: Yes Status: Acute With radiculopathy and muscle spasms. She has severe spinal stenosis noted on CT imaging at L1-2 and L3-4. Appears to be improving with current treatment. Continue prednisone, tramadol, Soma, po/iv APAP. Continue PT. (2) Bradycardia: Current visit: Yes Status: Acute Down into the 30s while out of bed to bathroom. Hold atenolol, monitor on tele. (3) Hypertension: Current visit: No Status: Chronic Blood pressure in acceptable range. Likely elevated on admission due to pain response. Hold BB due to bradycardia. Continue thiazide diuretic. Continue to monitor Blood pressure. (4) Obstructive sleep apnea: Current visit: No Status: Suspected She did have a CPAP at home but has not been able to follow up with pulmonology. CPAP ordered. She will need to follow up with pulmonology as an outpatient. (5) DVT prophylaxis: Current visit: Yes Status: Acute Subcutaneous heparin. (6) Discharge planning issues: Current visit: Yes Status: Acute She is a FULL code. Monitor on telemetry overnight. She will need home PT/OT when she is ready for discharge. This case was discussed with Dr. Contreras who is in agreement. Subjective Interval history since last seen: Jane is a 72-year-old woman with multiple medical comorbidities notable for morbid obesity, insulin-dependent type 2 diabetes, hypertension, hyperlipidemia, history of congestive heart failure (EF 60% 2013), hx lumbar spinal stenosis who presents to the ER yesterday via EMS with complaints of acute on chronic low back pain. She did not recall any specific injury. She had a Lumbar CT which showed severe degenerative changes, greatest at L1-L2 and L3-L4 where there is severe central canal stenosis. The findings at L1 and L2 had worsened when compared with imaging obtained in 2015. She was evaluated by PT and was noted to have difficulty with ambulation. She was admitted to the med/surg floor for observation and further treatment. She feels that her low back pain is improving with the current treatments. She continues to have low back pain with radiculopathy especially down her left leg. However, she did have an episode where she was getting up to the bathroom when she felt dizzy and was noted to have a heart rate in the 30s. She felt lightheaded at that time. She was placed on telemetry, her heart rate is now in the 50s. She does not feel dizzy at this point, resting in bed. She denies any other concerns, she does not report SOB, coughing, wheezing, chest pain/pressure, palpitations, nausea, vomiting. She has not had a bowel movement x3 days. She is eating and drinking without difficulty. She denies any urinary symptoms. Exam Narrative Exam Narrative: General: 72 yo obese female. Well developed and well nourished. In no acute distress. A/Ox3. Pleasant and cooperative. HEENT: Normocephalic, Atraumatic. Conjunctiva clear, sclera non-icteric. Pupils are equal and round. Moist mucous membranes. Neck: supple, no JVD. Cardiovascular: Regular, bradycardic in 50s, S1S2, no S3 or S4. No murmur, rub, gallop. Respiratory: Respirations even and unlabored. Lungs diminished throughout. No rales, rhonchi or wheeze. GI: Abdomen round, Obese, soft, non-tender to palpation. Normoactive bowel sounds in all 4 quadrants. No prominent masses. Extremities: Lower extremities without clubbing, cyanosis or edema Neurological: non-focal. CN 2-12 grossly intact. Musckuloskeletal: Paraspinal tenderness lumbar spine, + straight leg raise bilaterally, left > right. Objective Objective Clinical Data: Vital Signs Temperature 36.7 C 02/23/18 11:59 Temperature Source Tympanic 02/23/18 11:59 Pulse 54 L 02/23/18 11:59 Pulse Rhythm Regular 02/23/18 02:02 Respiratory Rate 18 02/23/18 11:59 Respiratory Effort 02/23/18 02:02 Respiratory Depth Normal 02/23/18 02:02 Respiratory Pattern Normal 02/23/18 02:02 Blood Pressure 130/70 02/23/18 11:59 Blood Pressure Position Supine 02/21/18 09:27 Pulse Oximetry 95 02/23/18 11:59 Oxygen Delivery Method Nasal Cannula 02/23/18 11:59 Oxygen Flow Rate 2 02/23/18 11:59 Pain Level 4 02/23/18 12:08 Comment 02/23/18 09:53 Intake & Output 02/22/18 02/23/18 02/23/18 23:59 11:59 23:59 Intake Total 490 / 490 200 / 200 Output Total 400 / 400 Balance 490 / 490 -200 / -200 Weight 106.2 kg Intake: IV Oral 480 / 480 200 / 200 Output: Urine 400 / 400 Other: Urine Color Yellow Yellow Urine Appearance Clear Clear Urine Odor None Normal Comment pt voided in the tiolet state same is clear yellow and non odorous Voiding Methods Toilet Laboratory Results WBC 7.22 k/cumm (4.4-10.8) 02/22/18 06:15 RBC 3.98 m/cumm (4.00-5.20) L 02/22/18 06:15 Hgb 11.7 g/dL (12.0-15.5) L 02/22/18 06:15 Hct 37.1 % (36.0-46.0) 02/22/18 06:15 MCV 93.2 fL (80-95) 02/22/18 06:15 MCH 29.4 pg (27.0-33.0) 02/22/18 06:15 MCHC 31.5 g/dL (32.0-36.0) L 02/22/18 06:15 RDW 14.0 % (11.7-14.6) 02/22/18 06:15 Plt Count 237 x1000/uL (130-400) 02/22/18 06:15 MPV 10.7 fL (8.0-11.0) 02/22/18 06:15
--- NOTE | 2018-02-23 14:10 | CMPROGNOTE_ITS ---
- If Service Date Differs Date of service: 02/23/18 Time of Service: 13:56 Care Management Progress Note S/O: JUDAH met with Jane in the room she is sitting up on the side of the bed eating lunch. She is alert and engaged she was transition to acute care today. She had episodes of low heart rate, dizziness, and her betablocker is on hold. She continues to have her labs and vital signs monitored. She continues on pain medication, steroids for her back pain and muscle relaxant. She will benefit from new home health services at time of discharge. A:Jane is a 72 year old female admitted with intractable back pain with new development of bradycarida. P:Jane will be discharged home when medically ready per provider. She will have new home health PT and OT. She lives with her son in [place] and he will transport her home at time of discharge. JUDAH requested [place] to assist in completing her advance directives.
[2018-02-23] MEDS: Atorvastatin 40 MG TAB 80 MG PO (22:04)
[2018-02-24] VITALS (12 sets, daily range): BP systolic 89–166; BP diastolic 54–79; PULSE 36–60; RESP 17–31; TEMP 36.4–36.9; O2SAT 89–96
[2018-02-24] MEDS: Heparin 5,000 UNITS/ML VIAL 5000 UNITS SC ×2 (01:40→11:25)
[2018-02-24] MEDS: traMADol 50 MG TAB 100 MG PO ×2 (01:52→08:32)
[2018-02-24 07:14] LABS: HCT 34.7 % (36.0-46.0); HGB 10.8 g/dL (12.0-15.5); Mean Corp. HGB Concentration 31.1 g/dL (32.0-36.0); Mean Corpuscular Hemoglobin 29.4 pg (27.0-33.0); Mean Corpuscular Volume 94.6 fL (80-95); Mean Platelet Volume 10.8 fL (8.0-11.0); Platelet Count 246 x1000/uL (130-400); RBC 3.67 m/cumm (4.00-5.20); RBC Distribution Width 14.4 % (11.7-14.6); White Blood Cell Count 11.03 k/cumm (4.4-10.8)
--- NOTE | 2018-02-24 08:03 | PHARADMIT ---
Admission Pharmacy Clinical Review BACK PAIN Code Status Full Code Current Weight Wgt-106.2 kg Renally Cleared and Narrow Therapeutic Index Meds CrCl~23.4 mL/min Meds-OK QTc Value / Action Taken NONE CURRENT BP Control, Fever BP-150/59 Tmax- 36.9C Electrolytes reviewed na DVT Prophylaxis Heparin SC Opiate Usage / Scheduled Bowel Regimen Ordered Yes Yes Plt/SCr for Heparin / Enoxaparin Plts-246 SCr-1.74 INR for Warfarin na H/H stable, WBC/Bands H&H- 10.8/34.7 WBC- 11.03 Antibiotic appropriateness NONE Cultures and Sensitivities none Surgical ABX d/c within 24 hr na DM control / Insulin Dosing BG-196 Aspart, Detemit, Metformin Heart Failure (Check EF%) (ROCHELLE's, B-Block, Diuretics) Atenolol, HCTZ IV to PO Switch Yes Home Meds Reviewed Yes Home Meds Not Ordered Ordered Comments
[2018-02-24] MEDS: Polyethylene Glycol 3350 17 GM PACKET PO (08:30)
[2018-02-24] MEDS: Normal Saline Flush 10 ML SYR IVP (08:30)
[2018-02-24] MEDS: Insulin Aspart 300 UNITS/3 ML PEN SC ×2 (08:31→12:44)
[2018-02-24] MEDS: predniSONE 20 MG TAB 60 MG PO (08:32)
[2018-02-24] MEDS: metFORMIN 500 MG TAB 1000 MG PO (08:33)
[2018-02-24] MEDS: Docusate Sodium 100 MG CAP PO (08:33)
[2018-02-24] MEDS: Aspirin 81 MG CHEW PO (08:34)
[2018-02-24] MEDS: Normal Saline 250 ML IV (11:35)
[2018-02-24 12:57] LABS: Anion Gap 10.8 mmol/L (3-11); BUN 66 mg/dL (7-18); CO2 26.2 mmol/L (21.0-32.0); CREATININE 1.81 mg/dL (0.55-1.02); Calcium 8.7 mg/dL (8.5-10.1); Chloride 102 mmol/L (98-107); Estimated GFR 27.56 (mL/min/1.73m2); Glucose 86 mg/dL (70-100); Potassium 5.2 mmol/L (3.5-5.1); Sodium 139 mmol/L (136-145); TSH 0.81 uIU/mL (0.358-3.74)
--- NOTE | 2018-02-24 12:59 | W.PM.DS.N ---
Date of service: 02/24/18 Time of Service: 12:59 DS: Diagnosis Discharge Diagnosis (1) Low back pain: Status: Acute (2) Bradycardia: Status: Acute (3) Hypertension: Status: Chronic (4) Obstructive sleep apnea: Status: Suspected Discharge Plan Disposition Patient Disposition: [facility] Condition: Serious Discharge Details Reason For Visit: BACK PAIN Admit Date/Time: 02/23/18 13:05 Admit Provider: Remy Contreras Attending Provider: Remy Contreras Primary Care Provider: Dru Armstrong [facility] Hospital Course Hospital Course: Jane is a 72-year-old woman with multiple medical comorbidities notable for morbid obesity, insulin-dependent type 2 diabetes, hypertension, hyperlipidemia, history of congestive heart failure (EF 60% 2013), hx lumbar spinal stenosis who presented to the ER on 02/21/18 via EMS with complaints of acute on chronic low back pain. She did not recall any specific injury. She had a Lumbar CT which showed severe degenerative changes, greatest at L1-L2 and L3-L4 where there is severe central canal stenosis. The findings at L1 and L2 had worsened when compared with imaging obtained in 2014. She was evaluated by PT and was noted to have difficulty with ambulation. She was admitted to the med/surg floor for observation and further treatment. She was started on prednisone 60 mg, to be tapered, tramadol, and soma with improvement in her back pain. She worked with PT and progressed well. The plan was for her to be discharged yesterday, 02/23/18, however, she reported to nursing that she was dizzy and lightheaded. Vital signs were taken at that time and she was noted to be bradycardic in the low 30s. Mrs. Walker has a history of bradycardia (noted in the system as far back as 2013), with heart rates in the 40s and 50s. She was previously on Atenolol. The thought was originally that the bradycardia was related to the Atenolol. Her last dose of Atenolol was 50 mg on 02/22/18 at 0830. Over 48 hours after her last dose she was again noted to have symptomatic bradycardia with multiple pauses greater than 4 seconds noted on the morning of 02/24/18. Her labs were notable for a BUN of 66, creatinine of 1.81 (appears to be near baseline), mildly elevated potassium of 5.2. Her TSH was normal at 0.81, Her WBC was 11.03, Hgb 10.8, Hct 34.7. Given her persistent symptomatic bradycardia, greater than 48 hours after the discontinuing Atenolol, a phone call was placed to [facility] [place] for consideration of pacemaker. This case was discussed with Dr. Lee at [facility], who accepted the patient for admission. The patient will be on the service of Dr. Fernandes, [facility]. She will be transported via EMS with pacer pads in place. In terms of her Diabetes, her blood sugars have been well controlled, she has been on insulin aspart both scheduled and sliding scale. She has YARELY, she has used a CPAP in the past, but did not continue follow up and does not currently have a CPAP machine at home. She is a FULL code. Home Meds and New Rx's Prescriptions: New carisoprodol [Soma] 350 mg Tablet 350 mg PO QID Qty: 0 RF: 0 polyethylene glycol 3350 17 gram Powder In Packet 17 g PO DAILY PRN PRN (Reason: Constipation) Qty: 0 RF: 0 prednisone 20 mg Tablet 40 mg PO DAILY Qty: 0 RF: 0 tramadol 50 mg Tablet 100 mg PO Q6H PRN PRNQty: 0 RF: 0 hydrochlorothiazide 12.5 mg Capsule 12.5 mg PO DAILY Qty: 0 RF: 0 docusate sodium [Colace] 100 mg Capsule 100 mg PO TID PRN PRNQty: 0 RF: 0 heparin (porcine) 5,000 unit/mL Solution 5,000 units subcut Q8H Qty: 0 RF: 0 Novolog Flexpen U-100 Insulin 100 unit/mL Insulin Pen subcut 0800,1200,1700 Qty: 0 RF: 0 Continued insulin aspart U-100 [Novolog PenFill U-100 Insulin] 100 UNIT/ML cartridge 2 units SQ TID RF: 0 aspirin 81 MG tablet,chewable 81 mg PO DAILY RF: 0 calcium carbonate-vitamin D3 [Calcium 500 With D] 1 EACH tablet 1 tab PO DAILY RF: 0 atorvastatin [Lipitor] 80 MG tablet 80 mg PO DAILY RF: 0 insulin detemir U-100 [Levemir FlexTouch U-100 Insuln] 100 unit/mL (3 mL) Insulin Pen 29 unit subcut .QHS RF: 0 Discontinued metformin 500 MG tablet 1,000 mg PO BID RF: 0 hydrochlorothiazide 50 MG tablet 50 mg PO DAILY RF: 0 atenolol 50 MG tablet 50 mg PO DAILY RF: 0 Lantus U-100 Insulin 100 UNIT/ML solution 25 unit Sub-Q HS RF: 0 Discharge Instructions Instructions: Pacemaker (DC), Sciatica (DC), Bradycardia (DC) Activity:: Bedrest Diet:: Carb Counting Discharge Orders Discharge Orders: Discharge Order (Routine); Ordered 02/24/18 Ordered By: Brandi Penny Exam Narrative Exam Narrative: General: 72 yo obese female. Well developed and well nourished. In no acute distress. A/Ox3. Pleasant and cooperative. HEENT: Normocephalic, Atraumatic. Conjunctiva clear, sclera non-icteric. Pupils are equal and round. Moist mucous membranes. Neck: supple, no JVD. Cardiovascular: Regular, bradycardic in 50s, S1S2, no S3 or S4. No murmur, rub, gallop. Respiratory: Respirations even and unlabored. Lungs diminished throughout. No rales, rhonchi or wheeze. GI: Abdomen round, Obese, soft, non-tender to palpation. Normoactive bowel sounds in all 4 quadrants. No prominent masses. Extremities: Lower extremities without clubbing, cyanosis or edema Neurological: non-focal. CN 2-12 grossly intact. Musckuloskeletal: Paraspinal tenderness lumbar spine, + straight leg raise bilaterally, left > right. DS: Data Vitals/I&O Vitals and I&O: Vital Signs Temperature 36.7 C 02/24/18 07:45 Temperature Source Tympanic 02/24/18 07:45 Pulse 36 L 02/24/18 10:07 Pulse Rhythm Regular 02/23/18 22:47 Respiratory Rate 18 02/24/18 07:45 Respiratory Effort Non-Labored 02/23/18 22:47 Respiratory Depth Normal 02/23/18 22:47 Respiratory Pattern Normal 02/23/18 22:47 Blood Pressure 89/54 L 02/24/18 10:07 Blood Pressure Position Supine 02/21/18 09:27 Pulse Oximetry 91 L 02/24/18 10:07 Oxygen Delivery Method Nasal Cannula 02/24/18 07:45 Oxygen Flow Rate 2 02/24/18 07:45 Pain Level 4 02/24/18 08:32 Comment 02/23/18 09:53 Intake & Output 02/23/18 02/24/18 02/24/18 23:59 11:59 23:59 Intake Total 480 / 1120 640 / 640 Output Total 300 / 700 550 / 550 Balance 180 / 420 90 / 90 Intake: Oral 480 / 1120 640 / 640 Output: Urine 300 / 700 550 / 550 Other: Urine Color Yellow Yellow Urine Appearance Clear Clear Urine Odor Normal Voiding Methods Toilet Toilet Completed studies during hospitalization [Text1]: CT LUMBAR SPINE: Comparison is made with CT of the abdomen and pelvis dated 26 October 2014. Images were performed from T 11-12 through the lower sacrum. There is no evidence of an acute fracture or destructive bony lesion. Again noted are severe degenerative changes at L1-2 which shows some interval worsening when compared with the previous exam. There is minimal loss of disc height and prominent broad-based disc osteophytes encroaching in to the posterior aspect of the central canal, causing severe central canal stenosis as well as severe left neural foraminal narrowing. There is moderate right neural foraminal narrowing. At L3-4 there are similar appearing prominent broad based disc osteophytes with annular calcification again causing severe central canal stenosis as well as severe bilateral neural foraminal narrowing, right greater than left. There are small osteophytes at L4-5, combining with degenerative disc changes to produce neural foraminal narrowing. Severe degenerative changes are noted of the facets at L5-S1, causing bilateral neural foraminal narrowing. No acute disc herniation is seen. IMPRESSION: Severe degenerative changes, greatest at L1-2 and L3-4 where there is severe central canal stenosis. The findings at L1-L2 have worsened when compared with 2015. Labs on day of discharge: Labs from last 24 hours 02/24/18 02/24/18 06:25 06:25 WBC 11.03 H RBC 3.67 L Hgb 10.8 L Hct 34.7 L MCV 94.6 MCH 29.4 MCHC 31.1 L RDW 14.4 Plt Count 246 MPV 10.8 Sodium Pending Potassium Pending Chloride Pending Carbon Dioxide Pending Anion Gap Pending BUN Pending Creatinine Pending Estimated GFR/1.73 m2 Pending Glucose Pending Calcium Pending TSH Pending PFSH Spinal stenosis, lumbar (Acute) HTN (hypertension) (Chronic) Insulin dependent diabetes mellitus (Chronic) YARELY (obstructive sleep apnea) (Chronic) Biopsy, Temporal Artery (01/18/15) Colonoscopy - MAC (08/14/16) Family History Mother Heart disease Father Heart disease Lung cancer Brother Heart disease Medical History Spinal stenosis, lumbar (Acute) HTN (hypertension) (Chronic) Insulin dependent diabetes mellitus (Chronic) YARELY (obstructive sleep apnea) (Chronic) Social History Smoking/Tobacco Use Status: Never Surgical History Biopsy, Temporal Artery (01/18/15) Colonoscopy - MAC (08/14/16) Social History Smoking/Tobacco Use Status: Never
--- NOTE | 2018-02-24 13:04 | DSE_ITS ---
Date of service: 02/24/18 Time of Service: 12:59 DS: Diagnosis Discharge Diagnosis (1) Low back pain: Status: Acute (2) Bradycardia: Status: Acute (3) Hypertension: Status: Chronic (4) Obstructive sleep apnea: Status: Suspected Discharge Plan Disposition Patient Disposition: [facility] Condition: Serious Discharge Details Reason For Visit: BACK PAIN Admit Date/Time: 02/23/18 13:05 Admit Provider: Remy Contreras Attending Provider: Remy Contreras Primary Care Provider: Dru Armstrong [facility] Hospital Course: Jane is a 72-year-old woman with multiple medical comorbidities notable for m orbid obesity, insulin-dependent type 2 diabetes, hypertension, hyperlipidemia, history of congestive heart failure (EF 60% 2013), hx lumbar spinal stenosis who presented to the ER on 02/21/18 via EMS with complaints of acute on chronic low back pain. She did not recall any specific injury. She had a Lumbar CT which showed severe degenerative changes, greatest at L1-L2 and L3-L4 where there is severe central canal stenosis. The findings at L1 and L2 had worsened when compared with imaging obtained in 2014. She was evaluated by PT and was noted to have difficulty with ambulation. She was admitted to the med/surg floor for observation and further treatment. She was started on prednisone 60 mg, to be tapered, tramadol, and soma with improvement in her back pain. She worked with PT and progressed well. The plan was for her to be discharged yesterday, 02/23/18, however, she reported to nursing that she was dizzy and lightheaded. Vital signs were taken at that time and she was noted to be bradycardic in the low 30s. Mrs. Walker has a history of bradycardia (noted in the system as far back as 2013), with heart rates in the 40s and 50s. She was previously on Atenolol. The thought was originally that the bradycardia was related to the Atenolol. Her last dose of Atenolol was 50 mg on 02/22/18 at 0830. Over 48 hours after her last dose she was again noted to have symptomatic bradycardia with multiple pauses greater than 4 seconds noted on the morning of 02/24/18. Her labs were notable for a BUN of 66, creatinine of 1.81 (appears to be near baseline), mildly elevated potassium of 5.2. Her TSH was normal at 0.81, Her WBC was 11.03, Hgb 10.8, Hct 34.7. Given her persistent symptomatic bradycardia, greater than 48 hours after the discontinuing Atenolol, a phone call was placed to [facility] cardiology for consideration of pacemaker. This case was discussed with Dr. Lee at [facility], who accepted the patient for admission. The patient will be on the service of Dr. Fernandes, [facility]. She will be transported via EMS with pacer pads in place. In terms of her Diabetes, her blood sugars have been well controlled, she has been on insulin aspart both scheduled and sliding scale. She has YARELY, she has used a CPAP in the past, but did not continue follow up and does not currently have a CPAP machine at home. She is a FULL code. Home Meds and New Rx's Prescriptions: New carisoprodol [Soma] 350 mg Tablet 350 mg PO QID Qty: 0 RF: 0 polyethylene glycol 3350 17 gram Powder In Packet 17 g PO DAILY PRN PRN (Reason: Constipation) Qty: 0 RF: 0 prednisone 20 mg Tablet 40 mg PO DAILY Qty: 0 RF: 0 tramadol 50 mg Tablet 100 mg PO Q6H PRN PRNQty: 0 RF: 0 hydrochlorothiazide 12.5 mg Capsule 12.5 mg PO DAILY Qty: 0 RF: 0 docusate sodium [Colace] 100 mg Capsule 100 mg PO TID PRN PRNQty: 0 RF: 0 heparin (porcine) 5,000 unit/mL Solution 5,000 units subcut Q8H Qty: 0 RF: 0 Novolog Flexpen U-100 Insulin 100 unit/mL Insulin Pen subcut 0800,1200,1700 Qty: 0 RF: 0 Continued insulin aspart U-100 [Novolog PenFill U-100 Insulin] 100 UNIT/ML cartridge 2 units SQ TID RF: 0 aspirin 81 MG tablet,chewable 81 mg PO DAILY RF: 0 calcium carbonate-vitamin D3 [Calcium 500 With D] 1 EACH tablet 1 tab PO DAILY RF: 0 atorvastatin [Lipitor] 80 MG tablet 80 mg PO DAILY RF: 0 insulin detemir U-100 [Levemir FlexTouch U-100 Insuln] 100 unit/mL (3 mL) Insulin Pen 29 unit subcut .QHS RF: 0 Discontinued metformin 500 MG tablet 1,000 mg PO BID RF: 0 hydrochlorothiazide 50 MG tablet 50 mg PO DAILY RF: 0 atenolol 50 MG tablet 50 mg PO DAILY RF: 0 Lantus U-100 Insulin 100 UNIT/ML solution 25 unit Sub-Q HS RF: 0 Discharge Instructions Instructions: Pacemaker (DC), Sciatica (DC), Bradycardia (DC) Activity:: Bedrest Diet:: Carb Counting Discharge Orders Discharge Orders: Discharge Order (Routine); Ordered 02/24/18 Ordered By: Brandi Penny Exam Narrative Exam Narrative: General: 72 yo obese female. Well developed and well nourished. In no acute distress. A/Ox3. Pleasant and cooperative. HEENT: Normocephalic, Atraumatic. Conjunctiva clear, sclera non-icteric. Pupils are equal and round. Moist mucous membranes. Neck: supple, no JVD. Cardiovascular: Regular, bradycardic in 50s, S1S2, no S3 or S4. No murmur, rub, gallop. Respiratory: Respirations even and unlabored. Lungs diminished throughout. No rales, rhonchi or wheeze. GI: Abdomen round, Obese, soft, non-tender to palpation. Normoactive bowel sounds in all 4 quadrants. No prominent masses. Extremities: Lower extremities without clubbing, cyanosis or edema Neurological: non-focal. CN 2-12 grossly intact. Musckuloskeletal: Paraspinal tenderness lumbar spine, + straight leg raise bilaterally, left > right. DS: Data Vitals/I&O Vitals and I&O: Vital Signs Temperature 36.7 C 02/24/18 07:45 Temperature Source Tympanic 02/24/18 07:45 Pulse 36 L 02/24/18 10:07 Pulse Rhythm Regular 02/23/18 22:47 Respiratory Rate 18 02/24/18 07:45 Respiratory Effort Non-Labored 02/23/18 22:47 Respiratory Depth Normal 02/23/18 22:47 Respiratory Pattern Normal 02/23/18 22:47 Blood Pressure 89/54 L 02/24/18 10:07 Blood Pressure Position Supine 02/21/18 09:27 Pulse Oximetry 91 L 02/24/18 10:07 Oxygen Delivery Method Nasal Cannula 02/24/18 07:45 Oxygen Flow Rate 2 02/24/18 07:45 Pain Level 4 02/24/18 08:32 Comment 02/23/18 09:53 Intake & Output 02/23/18 02/24/18 02/24/18 23:59 11:59 23:59 Intake Total 480 / 1120 640 / 640 Output Total 300 / 700 550 / 550 Balance 180 / 420 90 / 90 Intake: Oral 480 / 1120 640 / 640 Output: Urine 300 / 700 550 / 550 Other: Urine Color Yellow Yellow Urine Appearance Clear Clear Urine Odor Normal Voiding Methods Toilet Toilet Completed studies during hospitalization [Text1]: CT LUMBAR SPINE: Comparison is made with CT of the abdomen and pelvis dated 26 October 2014. Images were performed from T 11-12 through the lower sacrum. There is no evidence of an acute fracture or destructive bony lesion. Again noted are severe degenerative changes at L1-2 which shows some interval worsening when compared with the previous exam. There is minimal loss of disc height and prominent broad-based disc osteophytes encroaching in to the posterior aspect of the central canal, causing severe central canal stenosis as well as severe left neural foraminal narrowing. There is moderate right neural foraminal narrowing. At L3-4 there are similar appearing prominent broad based disc osteophytes with annular calcification again causing severe central canal stenosis as well as severe bilateral neural foraminal narrowing, right greater than left. There are small osteophytes at L4-5, combining with degenerative disc changes to produce neural foraminal narrowing. Severe degenerative changes are noted of the facets at L5-S1, causing bilateral neural foraminal narrowing. No acute disc herniation is seen. IMPRESSION: Severe degenerative changes, greatest at L1-2 and L3-4 where there is severe central canal stenosis. The findings at L1-L2 have worsened when compared with 2015. Labs on day of discharge: Labs from last 24 hours 02/24/18 02/24/18 06:25 06:25 WBC 11.03 H RBC 3.67 L Hgb 10.8 L Hct 34.7 L MCV 94.6 MCH 29.4 MCHC 31.1 L RDW 14.4 Plt Count 246 MPV 10.8 Sodium Pending Potassium Pending Chloride Pending Carbon Dioxide Pending Anion Gap Pending BUN Pending Creatinine Pending Estimated GFR/1.73 m2 Pending Glucose Pending Calcium Pending TSH Pending [facility] Spinal stenosis, lumbar (Acute) HTN (hypertension) (Chronic) Insulin dependent diabetes mellitus (Chronic) YARELY (obstructive sleep apnea) (Chronic) Biopsy, Temporal Artery (01/18/15) Colonoscopy - [facility] (08/14/16) Family History Mother Heart disease Father Heart disease Lung cancer Brother Heart disease Medical History Spinal stenosis, lumbar (Acute) HTN (hypertension) (Chronic) Insulin dependent diabetes mellitus (Chronic) YARELY (obstructive sleep apnea) (Chronic) Social History Smoking/Tobacco Use Status: Never Surgical History Biopsy, Temporal Artery (01/18/15) Colonoscopy - [facility] (08/14/16) Social History Smoking/Tobacco Use Status: Never
--- NOTE | 2018-02-24 14:30 | CMDISCH_ITS ---
- If Service Date Differs Date of service: 02/24/18 Time of Service: 14:29 LACE Index Scoring Tool - Questions: Length of Stay (in days): 3 Acuity (Admit via E.D.?): Yes Comorbidities: Diabetes w/o Complication E.D. Visits: 1 - Answers: Total Score: 8 Risk of Readmission: Low Risk Care Management Discharge Reason for Hospitalization: Back pain Discharge Plan: Mohan will transfer to [facility] today. Ambulance to transport
--- NOTE | 2018-02-24 14:56 | CHAPLAIN ---
I visited with Jane this morning and assisted her in completing and Advance Directive. She appointed her son, Ricco, as her agent and no one else. She listed her brother as some who could be included in discussions about her health care, but he lives out of town. Jane said her son is the one person she can trust.
--- NOTE | 2018-02-24 15:19 | NUR.NOTE ---
Nursing Note: Patient was transferred to ICU @ [id number]
== END 2018-02-24 14:15 | disposition short-term general hospital (02) | DRG 552 ==
LOC: ER 13:00 → MS 13:50 → ICU 02-24 13:39
PROVIDERS: Nurse Practitioner Primary Care; Admitting Provider Internal Medicine; Emergency Provider Nurse Practitioner Family; PCP General Practice; Visit Provider Internal Medicine
DX: M54.16 Radiculopathy, lumbar region (principal); Z68.41 Body mass index [BMI] 40.0-44.9, adult; M48.061 Spinal stenosis, lumbar region without neurogenic claudication; E11.9 Type 2 diabetes mellitus without complications; Z79.4 Long term (current) use of insulin; E78.5 Hyperlipidemia, unspecified; M54.42 Lumbago with sciatica, left side; G89.29 Other chronic pain; E66.01 Morbid (severe) obesity due to excess calories
CPT/HCPCS: 36415; 80048; 85027; 96372; 97163; 97166; 97535; 99223; 99232; 99239; 99285; 72131; 84443; 93005; 93010; 99220; 99284; G0378; J1644; J1885; J3490; J7512

== ENCOUNTER 2018-07-08 09:33 | Outpatient (CLI) | payer MEDICARE, SELFPAY ==
[2018-07-08 10:26] LABS: Hemoglobin A1C 7.2 % (4.5-6.2)
== END 2018-07-08 09:53 ==
PROVIDERS: PCP General Practice; Visit Provider General Practice
DX: E11.9 Type 2 diabetes mellitus without complications (principal)
CPT/HCPCS: 36415; 83036

== ENCOUNTER 2018-12-12 12:32 | Outpatient (CLI) | payer MEDICARE, SELFPAY ==
[2018-12-12 14:11] LABS: Hemoglobin A1C 7.3 % (4.5-6.2)
[2018-12-12 14:12] LABS: BUN 35 mg/dL (7-18); CREATININE 1.62 mg/dL (0.55-1.02); Chloride 102 mmol/L (98-107); Estimated GFR 31.23 (mL/min/1.73m2); Potassium 4.9 mmol/L (3.5-5.1); Sodium 141 mmol/L (136-145)
== END 2018-12-12 12:52 ==
PROVIDERS: PCP General Practice; Visit Provider General Practice
DX: E11.9 Type 2 diabetes mellitus without complications (principal); I10 Essential (primary) hypertension
CPT/HCPCS: 36415; 80051; 84520; 82565; 83036

== ENCOUNTER 2018-12-21 01:26 | Outpatient (CLI) | payer MEDICARE, SELFPAY ==
--- NOTE | 2018-12-21 11:24 | DI.MAMMO_ITS ---
EXAM: MG MAMMO SCREENING CLINICAL HISTORY: SCREENING. TECHNIQUE: Mammograms were interpreted according to the usual protocol including computer analysis w [employer] CAD system, tomosynthesis and C-view imaging. COMPARISON: 2010 to 2018 FINDINGS: The breasts are composed of fatty density tissue, breast density category A. In the upper outer quadr ant of left breast, there are new vague densities not seen on previous exams. Spot compression views and ultrasound are requested for further evaluation. There has been no change in the appearance of the right breast. No suspicious calcifications are seen in either breast. IMPRESSION: BI-RADS Cat 0 - Assessment Incomplete: Need additional imaging evaluation Breast Density - Category A - Almost entirely fatty
== END 2018-12-21 01:46 ==
PROVIDERS: PCP General Practice; Visit Provider General Practice
DX: Z12.31 Encounter for screening mammogram for malignant neoplasm of breast (principal); R92.8 Other abnormal and inconclusive findings on diagnostic imaging of breast
CPT/HCPCS: 77063; 77067

== ENCOUNTER 2018-12-28 11:33 | Inpatient (IN) | payer MEDICARE, SELFPAY ==
[2018-12-28] VITALS (19 sets, daily range): BP systolic 104–165; BP diastolic 55–86; PULSE 76–99; RESP 2–28; TEMP 34–37.3; O2SAT 64–97
[2018-12-28] MEDS: Albuterol/Ipratropium 3 ML UPD VIAL UPD ×2 (11:50→20:47)
--- NOTE | 2018-12-28 11:54 | ED.GENADUL_ITS ---
Discharge Plan Disposition Patient Disposition: [facility] Condition: Improving Discharge Details Chief Complaint: SOB Clinical Impression: CHF (congestive heart failure) Primary Care Provider: Dru Armstrong ED Provider: Audi Sam Home Meds and New Rx's Prescriptions: No Action atorvastatin [Lipitor] 80 MG tablet 80 mg PO DAILY RF: 0 Levemir FlexTouch U-100 Insuln 100 unit/mL (3 mL) Insulin Pen 25 unit subcut .QHS RF: 0 polyethylene glycol 3350 17 gram Powder In Packet 17 g PO DAILY PRN PRN (Reason: Constipation) Qty: 0 RF: 0 hydrochlorothiazide 12.5 mg Capsule 12.5 mg PO DAILY Qty: 0 RF: 0 docusate sodium [Colace] 100 mg Capsule 100 mg PO TID PRN PRNQty: 0 RF: 0 Novolog Flexpen U-100 Insulin 100 unit/mL Insulin Pen 0 units subcut 0800,1200,1700 Qty: 0 RF: 0 amlodipine 5 mg Tablet 5 mg PO BID RF: 0 metformin 1,000 mg Tablet 1,000 mg PO BID RF: 0 aspirin 81 mg Tablet,Chewable 81 mg PO DAILY RF: 0 Calcium 600 with Vitamin D3 600 mg(1,500mg) -400 unit Tablet,Chewable 1 tab PO BID RF: 0 Eliquis 5 mg Tablet 5 mg PO BID RF: 0 Medical Decision Making 73-year-old female who has a history of diabetes, hypertension, CHF with preserved LV function, obstructive sleep apnea. She presents from home via EMS in 4 to 5 days of malaise, cough, progressive shortness of breath. She was hypoxic upon EMS evaluation, improved with submental oxygen and DuoNeb on route. She arrives with oxygenation in the mid 80s on 3 L nasal cannula. She is transferred to high flow oxygen, additional DuoNeb administered. Her exam reveals rales at the bases with upper airway wheezing noted. Different diagnosis includes decompensated congestive heart failure, bronchitis versus pneumonia. Patient has an allergy to furosemide, therefore given an oral dose of diuretic with metolazone. Chest x-ray does reveal diffuse pulmonary edema and patient placed on BiPAP. Her laboratories reveal negative troponin, elevated BNP of 939, BUN of 39, creatinine 1.8, CBC with white count 10, hematocrit 34, platelets 361. The patient is improving now with decreased respiratory rate, oxygenation of 94% on BiPAP settings of 12/5 at 50%. She is making urine. Will admit for further management of congestive heart failure with hypoxia. ECG Data Attestation: I personally reviewed and interpreted this ECG (s) as follows: Interpretation: Normal sinus rhythm with a rate of 97, QRS is narrow, no ST segment elevation, QTC of 399 HPI General Mode of arrival: EMS . Date/Time Provider Initiated Documentation: 12/28/18 12:13 . Limitations to Documentation: no limitations . Information obtained by: patient, family and EMS . History of Present Illness 73 year old F presents to the emergency department with the chief complaint of 5 days of malaise with cough, congestion, shortness of breath this morning., described as moderate, and is localized to the chest. Patient reports no radiation. Patient started experiencing this hour(s) and it has been constant. No relieving factors improve symptom(s), No exacerbating factors reported . Patient notes cough, malaise and shortness of breath; denies chest pain. Patient did receive the following treatments prior to arrival, other (DuoNeb and oxygen) Related Data Home Medications Medication Instructions Recorded Confirmed atorvastatin [Lipitor] 80 mg PO DAILY 02/23/14 12/28/18 insulin detemir U-100 [Levemir 25 unit SUBCUT .QHS 02/21/18 12/28/18 FlexTouch U-100 Insuln] docusate sodium [Colace] 100 mg PO TID PRN PRN #0 cap 02/24/18 12/28/18 hydrochlorothiazide 12.5 mg PO DAILY #0 cap 02/24/18 12/28/18 insulin aspart U-100 [Novolog 0 units SUBCUT 0800,1200,1700 #0 ml 02/24/18 12/28/18 Flexpen U-100 Insulin] polyethylene glycol 3350 17 g PO DAILY PRN PRN #0 ea 02/24/18 12/28/18 amlodipine 5 mg PO BID 12/28/18 12/28/18 apixaban [Eliquis] 5 mg PO BID 12/28/18 12/28/18 aspirin 81 mg PO DAILY 12/28/18 12/28/18 calcium carbonate-vitamin D3 1 tab PO BID 12/28/18 12/28/18 [Calcium 600 with Vitamin D3] metformin 1,000 mg PO BID 12/28/18 12/28/18 Previous Rx's Medication Instructions Recorded docusate sodium [Colace] 100 mg PO TID PRN PRN #0 cap 02/24/18 hydrochlorothiazide 12.5 mg PO DAILY #0 cap 02/24/18 insulin aspart U-100 [Novolog 0 units SUBCUT 0800,1200,1700 #0 ml 02/24/18 Flexpen U-100 Insulin] polyethylene glycol 3350 17 g PO DAILY PRN PRN #0 ea 02/24/18 Allergies Allergy/AdvReac Type Severity Reaction Status Date / Time codeine Allergy Severe Swelling/Ed Unverified 02/21/18 10:16 warner furosemide [From Lasix] Allergy Severe Swelling/Ed Unverified 02/21/18 10:16 warner morphine Allergy Severe Swelling/Ed Unverified 02/21/18 10:16 warner peanut Allergy Severe Unverified 02/21/18 10:16 tree nut Allergy Severe Unverified 02/21/18 10:16 acetaminophen [From Percocet] Allergy Intermediate ITCHY Unverified 02/21/18 10:16 adhesive tape Allergy Intermediate Skin Rash Unverified 02/21/18 10:16 oxycodone HCl [From Percocet] Allergy Intermediate ITCHY Unverified 02/21/18 10:16 apricot Allergy Unknown Uncoded 02/21/18 10:16 General Stated Complaint: SOB GERALDINE: 2 Review of Systems Review of Systems Narrative: Cough, congestion, shortness of breath today. Has not noted a fever, states she has been constipated. 8 systems reviewed and otherwise negative [facility] Medical History HTN (hypertension) (Chronic) Insulin dependent diabetes mellitus (Chronic) YARELY (obstructive sleep apnea) (Chronic) Spinal stenosis, lumbar (Acute) Surgical History Biopsy, Temporal Artery (01/18/15) DR.C YOUNG Colonoscopy - [facility] (08/14/16) Family History Mother Heart disease Father Heart disease Lung cancer Brother Heart disease Social History Smoking/Tobacco Use Status: Never Alcohol Intake: never Drug use: Never Do you feel safe in your relationship?: Yes Exam Narrative Exam Narrative: GEN: awake, alert, oriented 3. Pleasant, well groomed, interactive. HEAD: Normocephalic, atraumatic ENT: Mucous membranes moist, oropharynx unremarkable, External ear exam unremarkable EYES: PERRL, EOMI NECK: Full ROM, no CAROL, no menigismus CHEST/RESP: Nontender, upper airway wheeze, rales at bases CARDIOVASCULAR: RRR, no murmur, rub blayne. 2+ Rad pulse bilateral ABDOMEN: Soft, nontender, no mass. +Bowel sounds EXT: Full ROM, trace edema, no rash Neuro: Grossly normal neurologic exam, conversant, interactive. Psych: Speech fluent, thoughts congruent, affect normal Course Vital Signs Vital signs: Vital Signs Temperature 37.3 C 12/28/18 11:34 Pulse 95 H 12/28/18 11:34 Respiratory Rate 21 12/28/18 11:34 Blood Pressure 165/55 H 12/28/18 11:34 Pulse Oximetry 64 L 12/28/18 11:34 Temperature 37.3 C 12/28/18 11:34 Temperature Source Skin 12/28/18 11:34 Pulse 95 H 12/28/18 11:34 Respiratory Rate 21 12/28/18 11:34 Blood Pressure 165/55 H 12/28/18 11:34 Blood Pressure Position Sitting 12/28/18 11:34 Pulse Oximetry 64 L 12/28/18 11:34 Oxygen Delivery Method Nasal Cannula 12/28/18 11:34 Oxygen Flow Rate 3 12/28/18 11:34
[2018-12-28 12:09] LABS: Abs Immature Grans 0.03 k/cumm (0.0-0.09); Absolute Basophil Count 0.05 k/cumm (0.0-0.2); Absolute Lymphocyte Count 1.36 k/cumm (1.2-3.4); Absolute Neutrophil Count 8.15 k/cumm (1.2-6.7); Basophils % 0.5; Eosinophils % 1.9; HCT 34.7 % (36.0-46.0); HGB 9.7 g/dL (12.0-15.5); Immature Grans % 0.3; Mean Corpuscular Hemoglobin 24.5 pg (27.0-33.0); Mean Corpuscular Volume 87.6 fL (80-95); Mean Platelet Volume 9.5 fL (8.0-11.0); Monocytes % 6.7; Neutrophils % 77.6; Platelet Count 361 x1000/uL (130-400); RBC 3.96 m/cumm (4.00-5.20); RBC Distribution Width 18.7 % (11.7-14.6); White Blood Cell Count 10.49 k/cumm (4.4-10.8)
[2018-12-28 12:12] LABS: ALT 10 U/L (14-59); AST 12 U/L (15-37); Albumin 3.1 g/dL (3.4-5.0); Alkaline Phosphatase 78 U/L (46-116); Anion Gap 7.7 mmol/L (3-11); BUN 39 mg/dL (7-18); Bilirubin, Total 0.4 mg/dL (0.2-1.0); CO2 30.3 mmol/L (21.0-32.0); CREATININE 1.83 mg/dL (0.55-1.02); Calcium 8.7 mg/dL (8.5-10.1); Chloride 101 mmol/L (98-107); Estimated GFR 27.14 (mL/min/1.73m2); Glucose 241 mg/dL (70-100); Potassium 4.7 mmol/L (3.5-5.1); Sodium 139 mmol/L (136-145); Total Protein 7.4 g/dL (6.4-8.2)
[2018-12-28] MEDS: metOLazone 2.5 MG TAB 5 MG PO ×2 (12:21→21:20)
[2018-12-28 12:22] LABS: Magnesium 1.9 mg/dL (1.8-2.4); NT-proBNP 939 pg/mL
--- NOTE | 2018-12-28 12:25 | DI.RAD_ITS ---
EXAM: XR PORTABLE CHEST AP INDICATION: SOB, hx CHF. COMPARISON: RIGHT RIBS TO INCLUDE CXR from 07/29/2017 TECHNIQUE: 2D digital imaging was performed. FINDINGS: The exam is limited by patient body habitus. The abdominal soft tissues overlie the lung bases. He art size is within normal limits. There is marked vascular prominence as well as increased interstit ial markings consistent with CHF. IMPRESSION: CHF.
[2018-12-28 12:26] LABS: Anisocytosis 2+; Diff Comment RBC Morph Reviewed; Hypochromasia 2+; Polychromasia Present; Troponin I < 0.05 ng/mL (0.00-0.06)
[2018-12-28 12:27] LABS: Poikilocytes 2+
[2018-12-28] MEDS: Aspirin 81 MG CHEW 162 MG PO (14:19)
[2018-12-28 14:27] LABS: Bilirubin Negative (Negative); Blood Trace-intact (Negative); Clarity Clear (Clear); Glucose 250 mg/dL (Negative); Ketones Negative (Negative); Leukocyte Esterase Negative (Negative); Nitrite Negative (Negative); Specific Gravity 1.015 (1.005-1.025); Urobilinogen 0.2 EU/dL (Up TO 0.2)
[2018-12-28 14:35] LABS: Bacteria Moderate HPF (Negative); Epithelial Cells Rare HPF (Negative); WBC 0-2 HPF (0-5)
[2018-12-28 14:36] LABS: C & S Indicated? Yes; Casts Negative LPF (Negative); Crystals Rare Amorphous HPF (Negative); Mucus Trace (Negative)
[2018-12-28 15:07] LABS: Procalcitonin 0.2 ng/mL
--- NOTE | 2018-12-28 15:50 | HPE_ITS ---
Date of service: 12/28/18 Time of Service: 15:50 Assessment and Plan Assessment and plan (1) CHF (congestive heart failure): Status: Acute Assessment and plan: Most recent echo on her chart is from 2013, LVEF of 60% at that time, her right ventricle is mildly dilated, she had mild regurgitation of the tricuspid and mitral valves, biatrial enlargement noted. Her BNP is mildly elevated at 939, she has been greater than 1800 in the past. She was hypoxic on presentation. Unfortunately, she is unable to take Lasix. Metolazone initiated in the emergency department, will continue at 5 mg/day, and make adjustments accordingly. Marino in place. Monitor intake and output and daily weights. Repeat echo tomorrow. (2) Type II diabetes mellitus: Status: Chronic Assessment and plan: Continue Levemir at home dose, short acting insulin per sliding scale. Hold metformin. Monitor blood glucose before meals. Adjust insulin as needed. (3) Obstructive sleep apnea: Status: Suspected Assessment and plan: Has a CPAP at home but does not wear it. Has not been seen by pulmonology in about 4 years. Will need a referral to pulmonology at discharge. (4) Hypertension: Status: Chronic Assessment and plan: Not currently hypertensive, continue amlodipine. (5) Hyperlipidemia: Status: Chronic Assessment and plan: Continue statin. (6) Atrial fibrillation: Status: Chronic Assessment and plan: Presumed. Continue apixaban. (7) DVT prophylaxis: Status: Acute Assessment and plan: Therapeutic on apixaban. (8) Discharge planning issues: Status: Acute Assessment and plan: She is a full code. This case was discussed with Dr. Contreras who is in agreement. History of Present Illness History of Present Illness Chief Complaint: Shortness of breath Narrative: Jane Walker is a very pleasant 73 year old female with a past medical history significant for YARELY, obesity hypoventilation syndrome, insulin dependent diabetes, hypertension, chronic kidney disease, hyperlipidemia and probable atrial fibrillation (not listed on the chart but on apixiban, patient refers to ZioPatch results that were, not that bad), who presented to the ED today with reports of a 4-5 day history of general malaise, feeling hot and cold with a low grade fever, nonproductive cough, shortness of breath and decreased appetite. She alerted EMS today due to feeling more weak with increasing shortness of breath. She was noted to be hypoxic at the time of her presentation with oxygen saturations in the 80s on 3 lpm oxygen via nasal canula. She was placed on high flow oxygen. She was referred for a chest x-ray which showed findings consistent with congestive heart failure. Her BNP was mildly elevated at 939 (has been >1800 in the past). She had no leukocytosis. She was noted to have elevated BUN and Creatinine at 39 and 1.83, which appears to be her baseline. Unfortunately, she reports having an allergy to lasix with a reaction of swelling/edema, breathing difficulty so she was given metolazone. A marino catheter was placed. She was admitted to the floor for further observation and management. At the time of her admission, she was not feeling short of breath, she was on high flow oxygen. Her cough is improving, she is not producing sputum, she does not feel wheezy. She has had headaches for which she has been taking ibuprofen. She denies chest pain/pressure, palpitations. She has had a poor appetite and has been eating canned soup at home. She denies nausea, vomiting or diarrhea. Her bowels have been slightly constipated but have been moving. She has been voiding without difficulty, no dysuria or hematuria. She denies any ill contacts. She reports a history of YARELY, but has not been wearing CPAP x4 years because she does not have enough room in her room to plug it in. She has not seen a industrial psychology professor for about 4 years. She indicates that she did have oxygen at home previously but was told that she did not need any more and no longer has home oxygen. She reports that she wore a ZIO patch within the last year, she is not clear that she has atrial fibrillation but she is on a apixaban. Review of Systems Review of Systems ROS Unobtainable: All systems reviewed & are unremarkable except as noted in HPI and below PFSH Medical History HTN (hypertension) (Chronic) Insulin dependent diabetes mellitus (Chronic) YARELY (obstructive sleep apnea) (Chronic) Spinal stenosis, lumbar (Acute) Surgical History Biopsy, Temporal Artery (01/18/15) DR.C HECTOR Colonoscopy - MAC (08/14/16) Family History Mother Heart disease Father Heart disease Lung cancer Brother Heart disease Social History Smoking/Tobacco Use Status: Never Alcohol Intake: never Drug use: Never Do you feel safe in your relationship?: Yes Meds Home Medications and Allergies Home Medications Medication Instructions Recorded Confirmed Type atorvastatin [Lipitor] 80 mg PO DAILY 02/23/14 12/28/18 History insulin detemir U-100 [Levemir 25 unit SUBCUT .QHS 02/21/18 12/28/18 History FlexTouch U-100 Insuln] docusate sodium [Colace] 100 mg PO TID PRN PRN #0 cap 02/24/18 12/28/18 Rx hydrochlorothiazide 12.5 mg PO DAILY #0 cap 02/24/18 12/28/18 Rx insulin aspart U-100 [Novolog 0 units SUBCUT 0800,1200,1700 #0 ml 02/24/18 12/28/18 Rx Flexpen U-100 Insulin] polyethylene glycol 3350 17 g PO DAILY PRN PRN #0 ea 02/24/18 12/28/18 Rx amlodipine 5 mg PO BID 12/28/18 12/28/18 History apixaban [Eliquis] 5 mg PO BID 12/28/18 12/28/18 History aspirin 81 mg PO DAILY 12/28/18 12/28/18 History calcium carbonate-vitamin D3 1 tab PO BID 12/28/18 12/28/18 History [Calcium 600 with Vitamin D3] metformin 1,000 mg PO BID 12/28/18 12/28/18 History Allergies Allergy/AdvReac Type Severity Reaction Status Date / Time codeine Allergy Severe Swelling/Ed Unverified 02/21/18 10:16 warner furosemide [From Lasix] Allergy Severe Swelling/Ed Unverified 02/21/18 10:16 warner morphine Allergy Severe Swelling/Ed Unverified 02/21/18 10:16 warner peanut Allergy Severe Unverified 02/21/18 10:16 tree nut Allergy Severe Unverified 02/21/18 10:16 acetaminophen [From Percocet] Allergy Intermediate ITCHY Unverified 02/21/18 10:16 adhesive tape Allergy Intermediate Skin Rash Unverified 02/21/18 10:16 oxycodone HCl [From Percocet] Allergy Intermediate ITCHY Unverified 02/21/18 10:16 apricot Allergy Unknown Uncoded 02/21/18 10:16 Exam Narrative Exam Narrative: General: 73-year-old female, laying on stretcher with head elevated, alert and oriented, pleasant and cooperative, answers questions appropriately, her son is present. HEENT: Normocephalic, atraumatic, pupils equal round, EOMI, high flow oxygen in place, mucous membranes moist. Neck: Supple. Cardiovascular: Heart sounds regular, soft systolic murmur heard at the left sternal border, non-tachycardic. Respiratory: Respirations appear even and unlabored on high flow oxygen, lung sounds diminished in the right base, fine rales in the left base. No wheezing. Abdomen: Normoactive bowel sounds x4 quadrants, abdomen is soft and round, nontender on palpation. Extremities: Right ankle with mild edema. Bilateral lower extremities well- perfused, full range of motion, pedal pulses are palpable bilaterally. Results Labs Result diagrams: 12/28/18 11:40 12/28/18 11:40 Labs: Laboratory Results - last 24 hr 12/28/18 12/28/18 12/28/18 11:40 11:40 11:40 WBC 10.49 RBC 3.96 L Hgb 9.7 L Hct 34.7 L MCV 87.6 MCH 24.5 L MCHC 28.0 L RDW 18.7 H Plt Count 361 MPV 9.5 Immature Gran % 0.3 Neutrophils % 77.6 Lymphocytes % 13.0 Monocytes % 6.7 Eosinophils % 1.9 Basophils % 0.5 Absolute Neutrophils 8.15 H Absolute Lymphocytes 1.36 Absolute Monocytes 0.70 Absolute Eosinophils 0.20 Absolute Basophils 0.05 Differential Comment Rbc morph reviewed RBC Morphology See below Polychromasia Present Hypochromasia 2+ Poikilocytosis 2+ Anisocytosis 2+ Sodium 139 Potassium 4.7 Chloride 101 Carbon Dioxide 30.3 Anion Gap 7.7 BUN 39 H Creatinine 1.83 H Estimated GFR/1.73 m2 27.14 Glucose 241 H Calcium 8.7 Magnesium 1.9 Total Bilirubin 0.4 AST 12 L ALT 10 L Alkaline Phosphatase 78 Troponin I < 0.05 NT-Pro-B Natriuret Pep 939 H Total Protein 7.4 Albumin 3.1 L Procalcitonin Urine Color Urine Clarity Urine pH Ur Specific [place] Urine Protein Urine Ketones Urine Blood Urine Nitrite Urine Bilirubin Urine Urobilinogen Ur Leukocyte Esterase Urine RBC Urine WBC Ur Epithelial Cells Urine Crystals Urine Bacteria Urine Casts Urine Mucus Ur Culture Indicated? Urine Glucose 12/28/18 12/28/18 11:40 14:10 WBC RBC Hgb Hct MCV MCH MCHC RDW Plt Count MPV Immature Gran % Neutrophils % Lymphocytes % Monocytes % Eosinophils % Basophils % Absolute Neutrophils Absolute Lymphocytes Absolute Monocytes Absolute Eosinophils Absolute Basophils Differential Comment RBC Morphology Polychromasia Hypochromasia Poikilocytosis Anisocytosis Sodium Potassium Chloride Carbon Dioxide Anion Gap BUN Creatinine Estimated GFR/1.73 m2 Glucose Calcium Magnesium Total Bilirubin AST ALT Alkaline Phosphatase Troponin I NT-Pro-B Natriuret Pep Total Protein Albumin Procalcitonin 0.2 Urine Color Yellow Urine Clarity Clear Urine pH 5.0 Ur Specific [place] 1.015 Urine Protein 30 H Urine Ketones Negative Urine Blood Trace-intact H Urine Nitrite Negative Urine Bilirubin Negative Urine Urobilinogen 0.2 Ur Leukocyte Esterase Negative Urine RBC 5-10 H Urine WBC 0-2 Ur Epithelial Cells Rare Urine Crystals Rare amorphous Urine Bacteria Moderate Urine Casts Negative Urine Mucus Trace Ur Culture Indicated? Yes Urine Glucose 250 H Last Vital Signs Temp 36.8 C 12/28/18 15:47 Pulse 76 12/28/18 15:47 Resp 19 12/28/18 15:47 BP 134/69 12/28/18 15:47 Pulse Ox 92 L 12/28/18 15:47
[2018-12-28] MEDS: Insulin Aspart 300 UNITS/3 ML PEN SC (17:12)
--- NOTE | 2018-12-28 18:17 | NUR.NOTE ---
Nursing Note: Pt to [facility] floor from ER via stretcher at 1545. Pt A&Ox3. VSS; 94% on high flow. Pt's son at bedside. Pt oriented to MS floor, call orozco, TV, etc. Call orozco within reach. RN will continue to monitor.
[2018-12-28] MEDS: Apixaban 5 MG TAB PO (20:32)
[2018-12-28] MEDS: amLODIPine 5 MG TAB PO (20:32)
[2018-12-28] MEDS: Atorvastatin 40 MG TAB 80 MG PO (20:32)
[2018-12-28 20:33] LABS: Troponin I < 0.05 ng/mL (0.00-0.06)
[2018-12-28] MEDS: hydroCHLOROthiazide 25 MG TAB 50 MG PO (21:20)
[2018-12-29] VITALS (9 sets, daily range): BP systolic 109–150; BP diastolic 55–67; PULSE 62–75; RESP 16–23; TEMP 34–37; O2SAT 92–98
--- NOTE | 2018-12-29 06:48 | NUR.NOTE ---
Nursing Note: 12/28 2030H Nursing was with patient inside room about to serve 2000H medications when patient started to have a coughing fit. VSS taken. Patient was on Hiflow 02 at this time. 02Sat down to 80s during coughing fit. Nebulization given 02Sat went up to 93%. After nebulization, it dropped back down to 80s. Referred to CC. Lungs clear. Minimal output noted in marino. Patient was put to Bipap mask. Patient reassessed O2Sat back up to 93%. Patient education given regarding importance of maintaining Bipap mask on for the night. Referred to MD with orders made and carried out. Patient went back to sleep. Will monitor closely for recurring signs of distress. 0600H Patient awake and requested to sit in the recliner. Made comfortable in the recliner still with Bipap on. O2Sat at 95% at this time.
[2018-12-29 07:32] LABS: HCT 30.2 % (36.0-46.0); HGB 8.4 g/dL (12.0-15.5); Mean Corp. HGB Concentration 27.8 g/dL (32.0-36.0); Mean Corpuscular Hemoglobin 24.9 pg (27.0-33.0); Mean Corpuscular Volume 89.3 fL (80-95); Mean Platelet Volume 9.8 fL (8.0-11.0); Platelet Count 294 x1000/uL (130-400); RBC 3.38 m/cumm (4.00-5.20); RBC Distribution Width 18.6 % (11.7-14.6)
[2018-12-29 07:40] LABS: Anion Gap 4.7 mmol/L (3-11); BUN 44 mg/dL (7-18); CO2 33.3 mmol/L (21.0-32.0); CREATININE 1.95 mg/dL (0.55-1.02); Calcium 8.6 mg/dL (8.5-10.1); Chloride 102 mmol/L (98-107); Estimated GFR 25.22 (mL/min/1.73m2); Glucose 108 mg/dL (70-100); Potassium 5.6 mmol/L (3.5-5.1); Sodium 140 mmol/L (136-145)
[2018-12-29] MEDS: Aspirin 81 MG CHEW PO (08:30)
[2018-12-29] MEDS: metOLazone 2.5 MG TAB 5 MG PO (08:30)
[2018-12-29] MEDS: amLODIPine 5 MG TAB PO ×2 (08:30→20:38)
[2018-12-29] MEDS: Apixaban 5 MG TAB PO ×2 (08:31→20:38)
[2018-12-29] MEDS: Omeprazole 20 MG CAPCR PO (08:31)
--- NOTE | 2018-12-29 09:00 | DI.US_ITS ---
APPROVED REPORT Conclusion Left Ventricle : The left ventricle is grossly normal size. Mild to moderate concentric left ventricu lar hypertrophy. The left ventricular systolic function is normal. The left ventricular ejection frac tion is within the normal range. There is normal LV segmental wall motion. Flattened septum consisten t with right ventricular volume overload. The left ventricular diastolic function is normal. LVEF is 65-70%. without obstruction Right Ventricle : Right ventricle is moderately dilated. Right ventricle is mild to moderately hypoki netic. Right ventricle is mildly hypertrophied. Atria : Left atrium is mildly dilated. Right atrium is mildly dilated. Aortic Valve : The aortic valve is normal in structure, probably trileaflet, mobile. There is no aort ic valvular stenosis. No aortic regurgitation is present. Mitral Valve : The mitral valve is normal in structure. Trace mitral to mild regurgitation. Tricuspid Valve : The tricuspid valve is normal in structure. Mild to moderate tricuspid regurgitatio n. RVSP is estimated to be >60mmHg Great Vessels : Dilated IVC with poor inspiration collapse is consistent with elevated right atrial p ressure. Compared to echocardiogram dated 02/2014 RVSP is now significantly elevated EXAM: Comprehensive 2D, Doppler, and color-flow Echocardiogram Patient Location: In-Patient Microbiology Lab Manager: SATURNINO Pantoja (AE) Rhythm: NSR Indications: SOB, hypoxia, elevated BNP Left Ventricle The left ventricle is grossly normal size. The left ventricular systolic function is normal. The left ventricular ejection fraction is within the normal range. Mild to moderate concentric left ventricul ar hypertrophy. There is normal LV segmental wall motion. Flattened septum consistent with right vent ricular volume overload. The left ventricular diastolic function is normal. LVEF is 65-70%. without o bstruction Right Ventricle Right ventricle is moderately dilated. Right ventricle is mild to moderately hypokinetic. Right ventr icle is mildly hypertrophied. Atria Left atrium is mildly dilated. Right atrium is mildly dilated. Aortic Valve The aortic valve is normal in structure, probably trileaflet, mobile. There is no aortic valvular nancy nosis. No aortic regurgitation is present. Mitral Valve The mitral valve is normal in structure. Trace mitral to mild regurgitation. Tricuspid Valve The tricuspid valve is normal in structure. Mild to moderate tricuspid regurgitation. RVSP is estimat ed to be >60mmHg Great Vessels The aortic root is normal in size. Dilated IVC with poor inspiration collapse is consistent with elev ated right atrial pressure. Pericardium There is no pericardial effusion. possible pleural effusion 2D Dimensions IVSd 1.27 cm F: 0.6-1.0 LV EDV A4C 82.30 mL PWd 1.35 cm F: 0.6 - 1.0 LA Volume Index A4C 39.27 mL/m2 LVDd 4.52 cm F: 3.9 - 5.3 LA Area A4C 23.07 cm2 LVDs 2.49 cm F: 2.2 - 3.5 EF AP4 68.89 % Aortic Root 3.04 cm F: 2.7 - 3.3 RA Area A4C 22.48 cm2 LVOT 2.11 cm (M/F) 1.5-2.5 LVEF (Teich) 76.32 % LV Volume Index 38.96 mL/m2 F: 29 - 61 FS 44.89 % LV Diastology E Decel Time 177.00 (160-240 msec) E/A Ratio 1.3 MED E' 0.09 (>0.07 m/s) LV E/e MED 9.88 (<14) LAT E' 0.11 (>0.1 m/s) LV E/e LAT 8.31 (<14) Aortic Valve LVOT Area 3.50 cm2 LVOT Peak Tunde. 1.16 m/s LVOT Mean Tunde. 0.86 m/s MICHELLE Vmax 0.00 m/s LVOT Peak Gr. 5.39 mmHg MICHELLE Vmax Index 1.21 cm2/m2 LVOT Mean Gr. 3.18 mmHg MICHELLE Mean Tunde. 0.00 m/s LVOT VTI 0.23 m MICHELLE Mean [place]. Index 1.28 cm2/m2 AoV Peak Tunde. 1.60 (0.5-1.3 m/s) AoV Mean Tunde. 1.11 m/s AO Peak GR. 10.20 mmHg AO Mean GR. 5.50 (<5 mmHg) AO VTI 0.31 (0.18-0.25 m) MICHELLE (VTI) 2.61 (2.5-4.5 cm2) MICHELLE (VTI) Index 1.24 cm/m2 Mitral Valve MV E Max Tunde. 0.90 (0.4-1.3 m/s) MV A Velocity 0.72 (0.4-1.3 m/s) E/A Ratio 1.25 MV Decel. Time 176.89 (160-240 msec) MV PHT 51.30 msec MVA PHT 4.29 cm2 Tricuspid Valve TR P. Velocity 3.83 m/s TV Regurg Vmax 3.83 m/s TR P. Gradient 58.66 mmHg
--- NOTE | 2018-12-29 10:28 | PDOC.CMIN ---
Care Management Initial Assess REASON FOR HOSPITALIZATION:: CHF PAST MEDICAL HISTORY/PAST SURGICAL HISTORY:: HTN, Insulin dependent DM, YARELY, Spinal stenosis-lumbar, biopsy-Temporal Artery, Colonoscopy-MAC PREVIOUS FUNCTIONAL STATUS/SOCIAL/FAMILY SUPPORTS:: Jane resides at home with her son Abdias in [facility]. 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 She is independent with ADLs in the community, her son provides her transportation. She utilizes a walker and cane at home. She also has a CPAP which she reports was given to her, but she does not use. She was previously on oxygen but reports she no longer required oxygen about five years ago. CURRENT FUNCTIONAL STATUS:: Jane is pleasant and fully engaged with this machine sign writer. She is lying in bed, with high hugo oxygen on. ADVANCE DIRECTIVES:: None on file she would like to complete prior to discharge. Has patient been provided with information about the portal?: Yes Did the patient sign up for the portal?: No CODE STATUS:: Full Code INSURANCE COVERAGE / FINANCIAL ISSUES:: Medicare, financial assistance CURRENT HOME/COMMUNITY SERVICES/EQUIPMENT:: No current services at home. FWW, cane, and CPAP which she reports she does not use. PRIMARY CARE PHYSICIAN:: Dr. Armstrong POTENTIAL DISCHARGE NEEDS:: Follow-up appointment with primary care scheduled prior to discharge, referral to home health for PT and OT. PATIENT/FAMILY EDUCATION NEEDS:: Discharge education, limitations, follow-up plan of care, Ask Me Three education and self-management discussion. ANTICIPATED BARRIERS TO DISCHARGE:: None identified at this time. TRANSPORTATION:: Jane will transport via private vehicle with her son. PLAN:: Jane will be discharged home when medically ready per provider. She will continue to be evaluated for discharge needs, anticipate additional community referrals for increased services in home setting. She will transport via private vehicle with her son.
--- NOTE | 2018-12-29 11:21 | W.PM.PROGNOT ---
Date of Service Date of service: 12/29/18 Time of Service: 11:22 Assessment and Plan Assessment and plan (1) CHF (congestive heart failure): Status: Acute Assessment and plan: Most recent echo on her chart is from 2013, LVEF of 60% at that time, her right ventricle is mildly dilated, she had mild regurgitation of the tricuspid and mitral valves, biatrial enlargement noted. Her BNP was mildly elevated at 939 on admission, she has been greater than 1800 in the past. She remains hypoxic. Unfortunately, she is has a documented allergy to Lasix and endorses throat swelling. Started on metolazone initially, no change in weight, no significant increase in urinary output, remains hypoxic. Has tolerated bumex in the past. Will trial one dose of IV bumex. Discontinue Ruiz due to her discomfort. Monitor intake and output and daily weights. Repeat echo pending. (2) Type II diabetes mellitus: Status: Chronic Assessment and plan: Continue Levemir at home dose, short acting insulin per sliding scale. Hold metformin. Monitor blood glucose before meals. Adjust insulin as needed. (3) Obstructive sleep apnea: Status: Suspected Assessment and plan: Has a CPAP at home but does not wear it. Has not been seen by pulmonology in about 4 years. Will need a referral to pulmonology at discharge. (4) Hypertension: Status: Chronic Assessment and plan: Not currently hypertensive, continue amlodipine. (5) Hyperlipidemia: Status: Chronic Assessment and plan: Continue statin. (6) Atrial fibrillation: Status: Chronic Assessment and plan: Presumed. Continue apixaban. (7) DVT prophylaxis: Status: Acute Assessment and plan: Therapeutic on apixaban. (8) Discharge planning issues: Status: Acute Assessment and plan: She is a full code. This case was discussed with Dr. Contreras who is in agreement. Subjective Subjective Interval history since last seen: Jane Walker remains short of breath with any exertion and talking. She feels like she has phlegm, that she is unable to cough up. She endorses that she had more difficulty breathing last night and was placed on BiPAP. She also received extra metolazone. She is uncomfortable with the Ruiz catheter in place, she would like it removed, she states she can get up to the commode to urinate. We discussed her Lasix allergy that is listed on her chart, it is unclear if this is a true allergy but she did indicate that she had throat swelling. Given this information, we will not give her Lasix. However, it is documented that she has been on Bumex (same drug class) here at [facility] in the past and tolerated it. She is agreeable to trying a dose of Bumex. She denies chest pain/pressure, palpitations. She has not had a bowel movement for a few days prior to her admission. She would like a bowel regimen. She is eating and drinking tolerating her diet. She denies nausea or vomiting. Exam Narrative Exam Narrative: General: 73-year-old female, laying on stretcher with head elevated, alert and oriented, pleasant and cooperative, answers questions appropriately. HEENT: Normocephalic, atraumatic, pupils equal round, EOMI, high flow oxygen in place, mucous membranes moist. Neck: Supple. Cardiovascular: Heart sounds regular, soft systolic murmur heard at the left sternal border, non-tachycardic. Respiratory: Respirations appear even and unlabored on high flow oxygen at rest. Increasing shortness of breath when talking. Lung sounds very diminished bilaterally. No wheezing or rales. Abdomen: Normoactive bowel sounds x4 quadrants, abdomen is soft and round, nontender on palpation. Extremities: Right ankle with mild edema. Bilateral lower extremities well-perfused, full range of motion, pedal pulses are palpable bilaterally. Objective Objective Clinical Data: Abnormal lab results 12/28/18 12/28/18 12/28/18 Range/Units 11:40 11:40 11:40 RBC 3.96 L (4.00-5.20) m/cumm Hgb 9.7 L (12.0-15.5) g/dL Hct 34.7 L (36.0-46.0) % MCH 24.5 L (27.0-33.0) pg MCHC 28.0 L (32.0-36.0) g/dL RDW 18.7 H (11.7-14.6) % Absolute Neutrophils 8.15 H (1.2-6.7) k/cumm Potassium (3.5-5.1) mmol/L Carbon Dioxide (21.0-32.0) mmol/L BUN 39 H (7-18) mg/dL Creatinine 1.83 H (0.55-1.02) mg/dL Glucose 241 H (70-100) mg/dL AST 12 L (15-37) U/L ALT 10 L (14-59) U/L NT-Pro-B Natriuret Pep 939 H ( - 299) pg/mL Albumin 3.1 L (3.4-5.0) g/dL Urine Protein (Negative) mg/dL Urine Blood (Negative) Urine RBC (0-2) Urine Glucose (Negative) mg/dL 12/28/18 12/29/18 12/29/18 Range/Units 14:10 06:45 06:45 RBC 3.38 L (4.00-5.20) m/cumm Hgb 8.4 L (12.0-15.5) g/dL Hct 30.2 L (36.0-46.0) % MCH 24.9 L (27.0-33.0) pg MCHC 27.8 L (32.0-36.0) g/dL RDW 18.6 H (11.7-14.6) % Absolute Neutrophils (1.2-6.7) k/cumm Potassium 5.6 H (3.5-5.1) mmol/L Carbon Dioxide 33.3 H (21.0-32.0) mmol/L BUN 44 H (7-18) mg/dL Creatinine 1.95 H (0.55-1.02) mg/dL Glucose 108 H D (70-100) mg/dL AST (15-37) U/L ALT (14-59) U/L NT-Pro-B Natriuret Pep ( - 299) pg/mL Albumin (3.4-5.0) g/dL Urine Protein 30 H (Negative) mg/dL Urine Blood Trace-intact H (Negative) Urine RBC 5-10 H (0-2) Urine Glucose 250 H (Negative) mg/dL Vital Signs Temperature 37 C 12/29/18 08:11 Temperature Source Tympanic 12/29/18 08:11 Pulse 62 12/29/18 08:11 Pulse Rhythm Regular 12/29/18 10:28 Pulse 91 H 12/28/18 12:20 Respiratory Rate 20 12/29/18 08:11 Respiratory Effort Accessory Muscle Use 12/29/18 10:28 Respiratory Depth Normal 12/29/18 10:28 Respiratory Pattern Normal 12/29/18 10:28 Blood Pressure 109/55 L 12/29/18 08:11 Blood Pressure Mean 87 12/28/18 12:16 Blood Pressure Position Sitting 12/28/18 11:34 Pulse Oximetry 94 L 12/29/18 08:11 Oxygen Delivery Method Bi-pap 12/29/18 08:11 Oxygen Flow Rate 35 12/28/18 17:22 Fraction of Inspired Oxygen (FIO2) 50 12/29/18 06:20 Pain Level 0 12/29/18 08:11 Comment 12/28/18 12:29 Intake & Output 12/28/18 12/28/18 12/29/18 11:59 23:59 11:59 Intake Total 530 / 530 Output Total 400 / 400 400 / 400 Balance 130 / 130 -400 / -400 Weight 115.2 kg 115.2 kg 115.1 kg Intake: Oral 530 / 530 Output: Urine 400 / 400 400 / 400 Other: Urine Color Straw Straw Urine Appearance Clear Clear Laboratory Results WBC 8.10 k/cumm (4.4-10.8) 12/29/18 06:45 RBC 3.38 m/cumm (4.00-5.20) L 12/29/18 06:45 Hgb 8.4 g/dL (12.0-15.5) L 12/29/18 06:45 Hct 30.2 % (36.0-46.0) L 12/29/18 06:45 MCV 89.3 fL (80-95) 12/29/18 06:45 MCH 24.9 pg (27.0-33.0) L 12/29/18 06:45 MCHC 27.8 g/dL (32.0-36.0) L 12/29/18 06:45 RDW 18.6 % (11.7-14.6) H 12/29/18 06:45 Plt Count 294 x1000/uL (130-400) 12/29/18 06:45 MPV 9.8 fL (8.0-11.0) 12/29/18 06:45 Immature Gran % 0.3 12/28/18 11:40 Neutrophils % 77.6 12/28/18 11:40 Lymphocytes % 13.0 12/28/18 11:40 Monocytes % 6.7 12/28/18 11:40 Eosinophils % 1.9 12/28/18 11:40 Basophils % 0.5 12/28/18 11:40 Absolute Neutrophils 8.15 k/cumm (1.2-6.7) H 12/28/18 11:40 Absolute Lymphocytes 1.36 k/cumm (1.2-3.4) 12/28/18 11:40 Absolute Monocytes 0.70 k/cumm (0.11-0.7) 12/28/18 11:40 Absolute Eosinophils 0.20 k/cumm (0.0-0.7) 12/28/18 11:40 Absolute Basophils 0.05 k/cumm (0.0-0.2) 12/28/18 11:40 Differential Comment Rbc morph reviewed 12/28/18 11:40 RBC Morphology See below 12/28/18 11:40 Polychromasia Present 12/28/18 11:40 Hypochromasia 2+ 12/28/18 11:40 Poikilocytosis 2+ 12/28/18 11:40 Anisocytosis 2+ 12/28/18 11:40 Sodium 140 mmol/L (136-145) 12/29/18 06:45 Potassium 5.6 mmol/L (3.5-5.1) H 12/29/18 06:45 Chloride 102 mmol/L (98-107) 12/29/18 06:45 Carbon Dioxide 33.3 mmol/L (21.0-32.0) H 12/29/18 06:45 Anion Gap 4.7 mmol/L (3-11) 12/29/18 06:45 BUN 44 mg/dL (7-18) H 12/29/18 06:45 Creatinine 1.95 mg/dL (0.55-1.02) H 12/29/18 06:45 Estimated GFR/1.73 m2 25.22 (mL/min/1.73m2) 12/29/18 06:45 Glucose 108 mg/dL (70-100) H D 12/29/18 06:45 Calcium 8.6 mg/dL (8.5-10.1) 12/29/18 06:45 Magnesium 2.0 mg/dL (1.8-2.4) 12/29/18 06:45 Total Bilirubin 0.4 mg/dL (0.2-1.0) 12/28/18 11:40 AST 12 U/L (15-37) L 12/28/18 11:40 ALT 10 U/L (14-59) L 12/28/18 11:40 Alkaline Phosphatase 78 U/L (46-116) 12/28/18 11:40 Troponin I < 0.05 ng/mL (0.00-0.06) 12/28/18 20:13 NT-Pro-B Natriuret Pep 939 pg/mL (-299) H 12/28/18 11:40 Total Protein 7.4 g/dL (6.4-8.2) 12/28/18 11:40 Albumin 3.1 g/dL (3.4-5.0) L 12/28/18 11:40 Procalcitonin 0.2 ng/mL 12/28/18 11:40 Urine Color Yellow (Yellow) 12/28/18 14:10 Urine Clarity Clear (Clear) 12/28/18 14:10 Urine pH 5.0 (5-8) 12/28/18 14:10 Ur Specific [place] 1.015 (1.005-1.025) 12/28/18 14:10 Urine Protein 30 mg/dL (Negative) H 12/28/18 14:10 Urine Ketones Negative mg/dL (Negative) 12/28/18 14:10 Urine Blood Trace-intact (Negative) H 12/28/18 14:10 Urine Nitrite Negative (Negative) 12/28/18 14:10 Urine Bilirubin Negative (Negative) 12/28/18 14:10 Urine Urobilinogen 0.2 EU/dL (Up TO 0.2) 12/28/18 14:10 Ur Leukocyte Esterase Negative (Negative) 12/28/18 14:10 Urine RBC 5-10 (0-2) H 12/28/18 14:10 Urine WBC 0-2 HPF (0-5) 12/28/18 14:10 Ur Epithelial Cells Rare HPF (Negative) 12/28/18 14:10 Urine Crystals Rare amorphous HPF (Negative) 12/28/18 14:10 Urine Bacteria Moderate HPF (Negative) 12/28/18 14:10 Urine Casts Negative LPF (Negative) 12/28/18 14:10 Urine Mucus Trace (Negative) 12/28/18 14:10 Ur Culture Indicated? Yes 12/28/18 14:10 Urine Glucose 250 mg/dL (Negative) H 12/28/18 14:10
[2018-12-29] MEDS: Bumetanide 1 MG/4 ML VIAL IVP (11:24)
[2018-12-29] MEDS: Insulin Aspart 300 UNITS/3 ML PEN SC (11:26)
[2018-12-29 12:26] LABS: Potassium 5.6 mmol/L (3.5-5.1)
[2018-12-29] MEDS: Docusate Sodium 100 MG CAP PO (13:24)
[2018-12-29] MEDS: Acetaminophen 325 MG TAB 650 MG PO (13:24)
--- NOTE | 2018-12-29 15:17 | CHAPLAIN ---
Jane remembered me from when I helped her with her advance directive. She talked about what brought her here and isn't sure any family members will be visiting. She seems to be comfortable being here.
--- NOTE | 2018-12-29 16:03 | PHARADMIT ---
Addendum entered by Miranda Man 12/30/18 11:50: Pharmacy Note Subjective Objective VS-okay K+5.2 h/h-8.0/28.7 (down) SCr-2.11(down) BG-110 Assessment ferrous sulfate and folic acid ordered daily bumetanide 1mg dose given IV metolazone discontinued Plan continue to watch renal function and h/h Original Note: Admission Pharmacy Clinical Review CHF Code Status Full Code Current Weight 115.1 kg Renally Cleared and Narrow Therapeutic Index Meds CrCl~20.6ml/min QTc Value / Action Taken QTC 399 BP Control, Fever BP 109/55 Afebrile HR 62 Electrolytes reviewed K+ 5.6 Mag 2.0 DVT Prophylaxis Apixiban 5mg po BID Opiate Usage / Scheduled Bowel Regimen Ordered Plt/SCr for Heparin / Enoxaparin Plt 361 SCr 1.95 INR for Warfarin H/H stable, WBC/Bands H/H 8.4/30.2 WBC 8.10 Antibiotic appropriateness Cultures and Sensitivities Urine negative, Flu negative Surgical ABX d/c within 24 hr DM control / Insulin Dosing BG 108 (Levemir/Aspart) Heart Failure (Check EF%) (ROCHELLE's, B-Block, Diuretics) HCTZ x1, Metolazone, Amlodipine IV to PO Switch Home Meds Reviewed Home Meds Not Ordered Calcium w/D, HCTZ, Metformin-held intentionally Comments ProBnp 939, on oral Metolazone ?Allergy to Lasix...spent considerable amount of time researching Lasix allergy. Pt's PCP is -he has no mention of Lasix allergy in his medical records, called local pharmacy-they have never filled any orders for diuretics Could not tell if patient has ever seen a Contract Agent (has valve issues and EF 60%) On previous admissions patient has had oral and IV Bumex, on further evaluation between provider and patient, patient told provider Lasix doesn't work and caused throat swelling Trying a dose of IV Bumex x1, may consider trying Lasix and if it does appear to work, someone should edit the allergy database
[2018-12-29 17:49] LABS: Anion Gap 3.2 mmol/L (3-11); BUN 45 mg/dL (7-18); CO2 33.8 mmol/L (21.0-32.0); Calcium 8.4 mg/dL (8.5-10.1); Chloride 100 mmol/L (98-107); Estimated GFR 20.84 (mL/min/1.73m2); Glucose 116 mg/dL (70-100); Potassium 5.1 mmol/L (3.5-5.1); Sodium 137 mmol/L (136-145)
[2018-12-29] MEDS: Atorvastatin 40 MG TAB 80 MG PO (20:38)
[2018-12-30] VITALS (10 sets, daily range): BP systolic 132–156; BP diastolic 70–71; PULSE 36–69; RESP 1–20; TEMP 34–37.1; O2SAT 92–95
[2018-12-30] MEDS: Acetaminophen 325 MG TAB 650 MG PO ×2 (01:25→10:34)
[2018-12-30] MEDS: Albuterol/Ipratropium 3 ML UPD VIAL UPD (01:29)
[2018-12-30] MEDS: Mylanta Suspension 30 ML CUP PO (04:07)
[2018-12-30] MEDS: Omeprazole 20 MG CAPCR PO (07:15)
--- NOTE | 2018-12-30 07:16 | NUR.NOTE ---
Nursing Note: Patient has all 4 side rails up on her bed at this time. Patient states that is what she wants. Educated patient that it is considered a restraint to have a 4 rails up. Patient states that she does not care and does not want a rail put down
[2018-12-30 07:22] LABS: Abs Immature Grans 0.02 k/cumm (0.0-0.09); Absolute Basophil Count 0.02 k/cumm (0.0-0.2); Absolute Lymphocyte Count 1.21 k/cumm (1.2-3.4); Absolute Monocyte Count 0.66 k/cumm (0.11-0.7); Absolute Neutrophil Count 6.45 k/cumm (1.2-6.7); Basophils % 0.2; Eosinophils % 2.3; HCT 28.7 % (36.0-46.0); Immature Grans % 0.2; Lymphocytes % 14.1; Mean Corp. HGB Concentration 27.9 g/dL (32.0-36.0); Mean Corpuscular Hemoglobin 24.8 pg (27.0-33.0); Mean Corpuscular Volume 89.1 fL (80-95); Monocytes % 7.7; Neutrophils % 75.5; Platelet Count 271 x1000/uL (130-400); RBC 3.22 m/cumm (4.00-5.20); RBC Distribution Width 18.1 % (11.7-14.6); White Blood Cell Count 8.56 k/cumm (4.4-10.8)
[2018-12-30 07:37] LABS: Anion Gap 4.6 mmol/L (3-11); BUN 49 mg/dL (7-18); CO2 34.4 mmol/L (21.0-32.0); CREATININE 2.11 mg/dL (0.55-1.02); Calcium 8.2 mg/dL (8.5-10.1); Chloride 101 mmol/L (98-107); Estimated GFR 23.02 (mL/min/1.73m2); Glucose 110 mg/dL (70-100); Potassium 5.2 mmol/L (3.5-5.1); Sodium 140 mmol/L (136-145)
[2018-12-30 07:49] LABS: Anisocytosis 2+; Basophilic Stippling Present; Diff Comment RBC Morph Reviewed; Hypochromasia 2+
[2018-12-30 07:50] LABS: Poikilocytes 1+; Polychromasia Present
[2018-12-30] MEDS: amLODIPine 5 MG TAB PO ×2 (09:02→19:37)
[2018-12-30] MEDS: Docusate Sodium 100 MG CAP PO ×3 (09:02→19:37)
[2018-12-30] MEDS: Aspirin 81 MG CHEW PO (09:02)
[2018-12-30] MEDS: Polyethylene Glycol 3350 17 GM PACKET PO ×2 (09:02→19:37)
[2018-12-30] MEDS: Apixaban 5 MG TAB PO ×2 (09:02→19:37)
[2018-12-30 09:15] LABS: Iron 20 ug/dL (50-175); Total Iron Binding Capacity 367 ug/dL (250-450); Transferrin Sat 5 % (15-50)
[2018-12-30] MEDS: Bumetanide 1 MG/4 ML VIAL IVP (09:22)
[2018-12-30] MEDS: Normal Saline Flush 10 ML SYR IVP (09:22)
[2018-12-30 09:42] LABS: Ferritin 19 ng/mL (8-388); Folate 7.2 ng/mL (8.6-20.0); Vitamin B12 142 pg/mL (193-986)
[2018-12-30] MEDS: Bisacodyl 5 MG TABEC PO (10:06)
[2018-12-30] MEDS: Ferrous Sulfate 325 MG TAB PO (10:06)
--- NOTE | 2018-12-30 11:27 | W.PM.PROGNOT ---
Date of Service Date of service: 12/30/18 Time of Service: 11:27 Assessment and Plan Assessment and plan (1) CHF (congestive heart failure): Start date: 12/30/18 Start time: 11:31 Status: Acute Assessment and plan: Echo done yesterday revealing LV normal, EF in range 65-70%. Right ventricular volume overload. Left ventricular diastolic function normal without obstruction. Right ventricle is moderately dilated and mild to moderately hypokinetic with mild hypertrophy. Dilated IVC with poor inspiration collapse is consistent with elevated right arterial pressure. Continue bumex. Creatinine tolerated overnight with drop to 2.11, BUN slightly elevated. Monitor Bun/Creatinine and I/O. Weight up .1 kg. Continue to monitor (2) Anemia: Start date: 12/30/18 Start time: 11:46 Status: Chronic Assessment and plan: H/H low but stable, Iron Studies done Iron level 20, TIBC 367, Transferrin 5, ferritin 19, Vitamin B 12-142, folate- 7.2. Started on iron, folate. Monitor H/H (3) Type II diabetes mellitus: Start date: 12/30/18 Start time: 11:43 Status: Chronic Assessment and plan: Continue Levemir at home dose, short acting insulin per sliding scale. Hold metformin. Monitor blood glucose before meals. Adjust insulin as needed. Glucose today is 110 (4) Obstructive sleep apnea: Start date: 12/30/18 Start time: 11:45 Status: Suspected Assessment and plan: Has a CPAP at home but does not wear it. Has not been seen by pulmonology in about 4 years. Will need a referral to pulmonology at discharge. (5) Hypertension: Start date: 12/30/18 Start time: 11:46 Status: Chronic Assessment and plan: Not currently hypertensive, continue amlodipine. (6) Hyperlipidemia: Start date: 12/30/18 Start time: 11:46 Status: Chronic Assessment and plan: Continue statin. (7) Atrial fibrillation: Start date: 12/30/18 Start time: 11:46 Status: Chronic Assessment and plan: Presumed. Continue apixaban. (8) DVT prophylaxis: Start date: 12/30/18 Start time: 11:46 Status: Acute Assessment and plan: Therapeutic on apixaban. (9) Discharge planning issues: Start date: 12/30/18 Start time: 11:46 Status: Acute Assessment and plan: She is a full code. This case was discussed with Dr. Contreras who is in agreement. Subjective Subjective Patient reports: no new complaints Interval history since last seen: No new complaints. Exam Narrative Exam Narrative: General: 73-year-old female, sitting up in chair with oxygen. HEENT: Normocephalic, atraumatic, pupils equal round, EOMI, high flow oxygen in place, mucous membranes moist. Neck: Supple. Cardiovascular: Heart sounds regular, soft systolic murmur heard at the left sternal border, non-tachycardic. Respiratory: Respirations appear even and unlabored on high flow oxygen at rest. Talking in complete sentences without SOB. Lung sounds diminished bilaterally. No wheezing or rales. Abdomen: Normoactive bowel sounds x4 quadrants, abdomen is soft and round, nontender on palpation. Extremities: Right ankle with mild edema. Bilateral lower extremities well-perfused, full range of motion, pedal pulses are palpable bilaterally. Objective Objective Clinical Data: Abnormal lab results 12/29/18 12/29/18 12/30/18 Range/Units 12:00 17:35 06:30 RBC (4.00-5.20) m/cumm Hgb (12.0-15.5) g/dL Hct (36.0-46.0) % MCH (27.0-33.0) pg MCHC (32.0-36.0) g/dL RDW (11.7-14.6) % Potassium 5.6 H 5.2 H (3.5-5.1) mmol/L Carbon Dioxide 33.8 H 34.4 H (21.0-32.0) mmol/L BUN 45 H 49 H (7-18) mg/dL Creatinine 2.30 H 2.11 H (0.55-1.02) mg/dL Glucose 116 H 110 H (70-100) mg/dL Calcium 8.4 L 8.2 L (8.5-10.1) mg/dL Iron (50-175) ug/dL Transferrin % Sat (15-50) % Vitamin B12 (193-986) pg/mL Folate (8.6-20.0) ng/mL 12/30/18 12/30/18 12/30/18 Range/Units 06:30 06:30 06:30 RBC 3.22 L (4.00-5.20) m/cumm Hgb 8.0 L (12.0-15.5) g/dL Hct 28.7 L (36.0-46.0) % MCH 24.8 L (27.0-33.0) pg MCHC 27.9 L (32.0-36.0) g/dL RDW 18.1 H (11.7-14.6) % Potassium (3.5-5.1) mmol/L Carbon Dioxide (21.0-32.0) mmol/L BUN (7-18) mg/dL Creatinine (0.55-1.02) mg/dL Glucose (70-100) mg/dL Calcium (8.5-10.1) mg/dL Iron 20 L (50-175) ug/dL Transferrin % Sat 5 L (15-50) % Vitamin B12 142 L (193-986) pg/mL Folate 7.2 L (8.6-20.0) ng/mL Vital Signs Temperature 36.3 C L 12/30/18 07:35 Temperature Source Temporal Artery Scan 12/30/18 07:35 Pulse 69 12/30/18 07:35 Pulse Rhythm Regular 12/30/18 07:15 Pulse 91 H 12/28/18 12:20 Respiratory Rate 19 12/30/18 07:35 Respiratory Effort Non-Labored 12/30/18 07:15 Respiratory Depth Normal 12/30/18 07:15 Respiratory Pattern Normal 12/30/18 07:15 Blood Pressure 132/70 12/30/18 07:35 Blood Pressure Mean 87 12/28/18 12:16 Blood Pressure Position Sitting 12/28/18 11:34 Pulse Oximetry 95 12/30/18 07:35 Oxygen Delivery Method Hi Flow System 12/30/18 07:35 Oxygen Flow Rate 45 12/29/18 14:09 Fraction of Inspired Oxygen (FIO2) 76 12/29/18 14:09 Pain Level 5 12/30/18 10:38 Comment 12/28/18 12:29 Intake & Output 12/29/18 12/29/18 12/30/18 11:59 23:59 11:59 Intake Total 240 / 240 1110 / 1110 Output Total 400 / 1650 1250 / 1650 1775 / 1775 Balance -400 / -1410 -1010 / -1410 -665 / -665 Weight 115.1 kg 115.2 kg Intake: Oral 240 / 240 1110 / 1110 Output: Urine 400 / 1650 1250 / 1650 1775 / 1775 Other: Urine Color Straw Yellow Pale Yellow Urine Appearance Clear Clear Clear Urine Odor None Normal Comment small amout of incontinent Stool Size Small Small Stool Characteristics Soft Formed Formed Brown Voiding Methods Bedside Commode Bedside Commode Laboratory Results WBC 8.56 k/cumm (4.4-10.8) 12/30/18 06:30 RBC 3.22 m/cumm (4.00-5.20) L 12/30/18 06:30 Hgb 8.0 g/dL (12.0-15.5) L 12/30/18 06:30 Hct 28.7 % (36.0-46.0) L 12/30/18 06:30 MCV 89.1 fL (80-95) 12/30/18 06:30 MCH 24.8 pg (27.0-33.0) L 12/30/18 06:30 MCHC 27.9 g/dL (32.0-36.0) L 12/30/18 06:30 RDW 18.1 % (11.7-14.6) H 12/30/18 06:30 Plt Count 271 x1000/uL (130-400) 12/30/18 06:30 MPV 10.0 fL (8.0-11.0) 12/30/18 06:30 Immature Gran % 0.2 12/30/18 06:30 Neutrophils % 75.5 12/30/18 06:30 Lymphocytes % 14.1 12/30/18 06:30 Monocytes % 7.7 12/30/18 06:30 Eosinophils % 2.3 12/30/18 06:30 Basophils % 0.2 12/30/18 06:30 Absolute Neutrophils 6.45 k/cumm (1.2-6.7) 12/30/18 06:30 Absolute Lymphocytes 1.21 k/cumm (1.2-3.4) 12/30/18 06:30 Absolute Monocytes 0.66 k/cumm (0.11-0.7) 12/30/18 06:30 Absolute Eosinophils 0.20 k/cumm (0.0-0.7) 12/30/18 06:30 Absolute Basophils 0.02 k/cumm (0.0-0.2) 12/30/18 06:30 Differential Comment Rbc morph reviewed 12/30/18 06:30 RBC Morphology See below 12/30/18 06:30 Polychromasia Present 12/30/18 06:30 Hypochromasia 2+ 12/30/18 06:30 Poikilocytosis 1+ 12/30/18 06:30 Basophilic Stippling Present 12/30/18 06:30 Anisocytosis 2+ 12/30/18 06:30 Sodium 140 mmol/L (136-145) 12/30/18 06:30 Potassium 5.2 mmol/L (3.5-5.1) H 12/30/18 06:30 Chloride 101 mmol/L (98-107) 12/30/18 06:30 Carbon Dioxide 34.4 mmol/L (21.0-32.0) H 12/30/18 06:30 Anion Gap 4.6 mmol/L (3-11) 12/30/18 06:30 BUN 49 mg/dL (7-18) H 12/30/18 06:30 Creatinine 2.11 mg/dL (0.55-1.02) H 12/30/18 06:30 Estimated GFR/1.73 m2 23.02 (mL/min/1.73m2) 12/30/18 06:30 Glucose 110 mg/dL (70-100) H 12/30/18 06:30 Calcium 8.2 mg/dL (8.5-10.1) L 12/30/18 06:30 Magnesium 2.0 mg/dL (1.8-2.4) 12/29/18 06:45 Iron 20 ug/dL (50-175) L 12/30/18 06:30 TIBC 367 ug/dL (250-450) 12/30/18 06:30 Transferrin % Sat 5 % (15-50) L 12/30/18 06:30 Ferritin 19 ng/mL (8-388) 12/30/18 06:30 Total Bilirubin 0.4 mg/dL (0.2-1.0) 12/28/18 11:40 AST 12 U/L (15-37) L 12/28/18 11:40 ALT 10 U/L (14-59) L 12/28/18 11:40 Alkaline Phosphatase 78 U/L (46-116) 12/28/18 11:40 Troponin I < 0.05 ng/mL (0.00-0.06) 12/28/18 20:13 NT-Pro-B Natriuret Pep 939 pg/mL (-299) H 12/28/18 11:40 Total Protein 7.4 g/dL (6.4-8.2) 12/28/18 11:40 Albumin 3.1 g/dL (3.4-5.0) L 12/28/18 11:40 Vitamin B12 142 pg/mL (193-986) L 12/30/18 06:30 Folate 7.2 ng/mL (8.6-20.0) L 12/30/18 06:30 Procalcitonin 0.2 ng/mL 12/28/18 11:40 Urine Color Yellow (Yellow) 12/28/18 14:10 Urine Clarity Clear (Clear) 12/28/18 14:10 Urine pH 5.0 (5-8) 12/28/18 14:10 Ur Specific [place] 1.015 (1.005-1.025) 12/28/18 14:10 Urine Protein 30 mg/dL (Negative) H 12/28/18 14:10 Urine Ketones Negative mg/dL (Negative) 12/28/18 14:10 Urine Blood Trace-intact (Negative) H 12/28/18 14:10 Urine Nitrite Negative (Negative) 12/28/18 14:10 Urine Bilirubin Negative (Negative) 12/28/18 14:10 Urine Urobilinogen 0.2 EU/dL (Up TO 0.2) 12/28/18 14:10 Ur Leukocyte Esterase Negative (Negative) 12/28/18 14:10 Urine RBC 5-10 (0-2) H 12/28/18 14:10 Urine WBC 0-2 HPF (0-5) 12/28/18 14:10 Ur Epithelial Cells Rare HPF (Negative) 12/28/18 14:10 Urine Crystals Rare amorphous HPF (Negative) 12/28/18 14:10 Urine Bacteria Moderate HPF (Negative) 12/28/18 14:10 Urine Casts Negative LPF (Negative) 12/28/18 14:10 Urine Mucus Trace (Negative) 12/28/18 14:10 Ur Culture Indicated? Yes 12/28/18 14:10 Urine Glucose 250 mg/dL (Negative) H 12/28/18 14:10
[2018-12-30] MEDS: Insulin Aspart 300 UNITS/3 ML PEN SC (11:52)
--- NOTE | 2018-12-30 17:35 | PDOC.CMPRO ---
Care Management Progress Note S/O: Jane was sitting up in her chair when CM met with her. She remains pleasant in interaction and forthcoming in information. She reported being agreeable to increased services in the home setting including RN/PT/OT/PACKING MACHINE TENDER through [facility]. Jane is struggling with most aspects of ADLs and is unable to get into the bathtub at this time. She may require home O2 upon discharge; undetermined at this time. She reports her home (rented mobile [place] in [facility]) requires heat tape underneath her home to ensure the pipes do not freeze, which makes her unable to plug in her CPAP at night, per her report. She could benefit from increased social interaction. Her son sleeps during the day and works at night. Jane does not leave the house often and is struggling with most ADLs. CM continues to follow. A: 73 year old female admitted to [facility] 12/28/18 for CHF. P: Jane will be discharged home when medically ready per provider. She will continue to be evaluated for discharge needs, anticipate additional community referrals for increased services in home setting including RN/PT/OT/PACKING MACHINE TENDER through [facility]. She will transport via private vehicle with her son.
[2018-12-30] MEDS: Atorvastatin 40 MG TAB 80 MG PO (19:37)
[2018-12-31] VITALS (13 sets, daily range): BP systolic 128–153; BP diastolic 67–76; PULSE 63–89; RESP 8–20; TEMP 34–37.3; O2SAT 90–97
[2018-12-31] MEDS: Acetaminophen 325 MG TAB 650 MG PO ×2 (01:33→08:49)
--- NOTE | 2018-12-31 01:43 | NUR.NOTE ---
Nursing Note: pt requesting that she wants all 4 bed rails up while she is in bed.
[2018-12-31] MEDS: Omeprazole 20 MG CAPCR PO (07:14)
[2018-12-31] MEDS: Polyethylene Glycol 3350 17 GM PACKET PO (08:48)
[2018-12-31] MEDS: Apixaban 5 MG TAB PO ×2 (08:49→20:12)
[2018-12-31] MEDS: amLODIPine 5 MG TAB PO ×2 (08:49→20:12)
[2018-12-31] MEDS: Folic Acid 1 MG TAB PO (08:49)
[2018-12-31] MEDS: Ferrous Sulfate 325 MG TAB PO (08:49)
[2018-12-31] MEDS: Docusate Sodium 100 MG CAP PO ×2 (08:50→14:32)
[2018-12-31] MEDS: Bisacodyl 5 MG TABEC PO (08:50)
[2018-12-31] MEDS: Aspirin 81 MG CHEW PO (08:50)
[2018-12-31 09:30] LABS: BE 8.8 mmol/L (-3-3); HCO3 35 mmol/L (22-28); pH 7.31 (7.35-7.45); pO2 78 mmHg (83-108); sO2 95 % (94-98); tCO2 34 mmol/L (22-29)
[2018-12-31 09:32] LABS: Site Left Radial; pCO2 70 mmHg (34-47)
[2018-12-31] MEDS: Normal Saline Flush 10 ML SYR IVP (10:13)
[2018-12-31 10:23] LABS: Anion Gap 2.3 mmol/L (3-11); BUN 50 mg/dL (7-18); CO2 35.7 mmol/L (21.0-32.0); CREATININE 1.98 mg/dL (0.55-1.02); Calcium 8.3 mg/dL (8.5-10.1); Chloride 99 mmol/L (98-107); Estimated GFR 24.78 (mL/min/1.73m2); Glucose 140 mg/dL (70-100); Magnesium 2.2 mg/dL (1.8-2.4); Potassium 5.3 mmol/L (3.5-5.1); Sodium 137 mmol/L (136-145)
[2018-12-31 10:34] LABS: Abs Immature Grans 0.01 k/cumm (0.0-0.09); Absolute Basophil Count 0.02 k/cumm (0.0-0.2); Absolute Eosinophil Count 0.28 k/cumm (0.0-0.7); Absolute Lymphocyte Count 0.93 k/cumm (1.2-3.4); Absolute Monocyte Count 0.57 k/cumm (0.11-0.7); Absolute Neutrophil Count 5.24 k/cumm (1.2-6.7); Basophils % 0.3; HCT 29.2 % (36.0-46.0); HGB 8.2 g/dL (12.0-15.5); Immature Grans % 0.1; Lymphocytes % 13.2; Mean Corp. HGB Concentration 28.1 g/dL (32.0-36.0); Mean Corpuscular Hemoglobin 24.6 pg (27.0-33.0); Mean Corpuscular Volume 87.4 fL (80-95); Monocytes % 8.1; NT-proBNP 326 pg/mL; Neutrophils % 74.3; Platelet Count 280 x1000/uL (130-400); RBC 3.34 m/cumm (4.00-5.20); White Blood Cell Count 7.05 k/cumm (4.4-10.8)
[2018-12-31 11:12] LABS: Anisocytosis 1+; Diff Comment RBC Morph Reviewed; Hypochromasia 1+
--- NOTE | 2018-12-31 11:48 | CMPROGNOTE_ITS ---
Care Management Progress Note S/O: Jane was sitting up in her recliner and RT was evaluating her CPAP. Stated she has not used one at home for the past 2 years because she cannot plug it in at night due to the heat tape that is needed under the trailer. Not sure why that has been a year round issue or why alternatives have not been put into place. Will ask HH to evaluate when they open new services for her at home. She will also need Home O2. A: 73 y.o. female admitted for CHF P: Jane will be discharged home when medically ready per provider. She will continue to be evaluated for discharge needs, anticipate additional community referrals for increased services in home setting including RN/PT/OT/REHAB AID through [facility]. RT will make arrangements for Oxygen through [facility]. She will transport via private vehicle with her son.
--- NOTE | 2018-12-31 14:38 | PGE_ITS ---
Date of Service Date of service: 12/31/18 Time of Service: 14:38 Assessment and Plan Assessment and plan (1) Acute on chronic respiratory failure with hypoxia and hypercapnia: Start date: 12/31/18 Start time: 14:42 Status: Acute Assessment and plan: ABG revealing PCO2 70 po2 78, patient with acute on chronic hypercapnia and hypoxia in the setting of acute on chronic congestive heart failure. Bipap applied patient did not respond well. On nasal cannula at 5 L 90%. Patient should stay between 88 and 92 oxygen saturation. Bumex drip started for acute on chronic CHF exacerbation (2) Acute on chronic congestive heart failure with right ventricular diastolic dysfunction: Start date: 12/31/18 Start time: 14:46 Status: Acute Assessment and plan: Volume overload evidenced by symptoms, imaging and echo. CXR with CHF, echo The left ventricular systolic function is normal. The left ventricular ejection fraction is within the normal range. There is normal LV segmental wall motion. Flattened septum consistent with right ventricular volume overload. The left ventricular diastolic function is normal. LVEF is 65- 70%. without obstruction. Right ventricle is moderately dilated. Right ventricle is mild to moderately hypokinetic. Right ventricle is mildly hypertrophied. Atria : Left atrium is mildly dilated. Right atrium is mildly dilated. Given bumex 1 mg IVP yesterday. Creatinine improving with CKD. Started on bumex drip today. Patient allergic to lasix. Bumex drip for 8 hours and reevaluate patient status. 3 kg weight loss however standing scale vs bed scale unsure if accurate weight. Will continue to monitor daily weights with standing scale and catheter for output monitoring. Recheck labs in am. BNP is down however, this is right sided heart failure. Palliative care consult to discuss patient goals. (3) Pulmonary hypertension: Start date: 12/31/18 Start time: 14:50 Status: Acute Assessment and plan: As evidenced by echo, dilated IVC with poor inspiration collapse. See above. (4) Anemia: Start date: 12/31/18 Start time: 14:52 Status: Chronic Assessment and plan: H/H low but stable better at 8.2 today and 29.9, Iron Studies done Iron level 20, TIBC 367, Transferrin 5, ferritin 19, Vitamin B 12-142, folate- 7.2. Started on iron, folate. Monitor H/H (5) Type II diabetes mellitus: Start date: 12/31/18 Start time: 14:52 Status: Chronic Assessment and plan: Continue Levemir at home dose, short acting insulin per sliding scale. Hold metformin. Monitor blood glucose before meals. Adjust insulin as needed. Glucose today is 110 (6) Obstructive sleep apnea: Start date: 12/31/18 Start time: 14:52 Status: Suspected Assessment and plan: Has a CPAP at home but does not wear it. Trialed bipap today at lowest setting and patient did not respond well to bipap. (7) Hypertension: Start date: 12/31/18 Start time: 14:53 Status: Chronic Assessment and plan: Continue amlodipine, bp liable. Continue to monitor (8) Hyperlipidemia: Start date: 12/31/18 Start time: 14:53 Status: Chronic Assessment and plan: Continue statin. (9) Atrial fibrillation: Start date: 12/31/18 Start time: 14:53 Status: Chronic Assessment and plan: Presumed. Continue apixaban. (10) DVT prophylaxis: Start date: 12/31/18 Start time: 14:53 Status: Acute Assessment and plan: Therapeutic on apixaban. (11) Discharge planning issues: Start date: 12/31/18 Start time: 14:54 Status: Acute Assessment and plan: She is a full code. This case was discussed with Dr. Broderick who is in agreement. (12) CKD (chronic kidney disease): Start date: 12/31/18 Start time: 14:54 Status: Acute Assessment and plan: CKD, creatinine on admission 1.83 as high as 2.30 during admission, in the past has been as elevated as 3.2. Today 1.98. Continue to monitor BMP and function with bumex drip. Subjective Subjective Patient reports: no new complaints Interval history since last seen: Feeling the same. Started on bumex drip, trialed bipap would not tolerate. NO nausea, CP or worsening SOB. After Bipap asked to be on oxygen respiratory trialing 5 L oxygen. ABG with acute on chronic hypercapia and hypoxia. Continue to monitor I/O catheter inserted, and monitor daily weights. Exam Narrative Exam Narrative: General: 73-year-old female, sitting up in chair with oxygen. Not improving HEENT: Normocephalic, atraumatic, pupils equal round, EOMI, nasal cannula in place tried bipap unable to tolerate, mucous membranes moist. Neck: Supple. Cardiovascular: Heart sounds regular, soft systolic murmur heard at the left sternal border, non-tachycardic. Respiratory: Respirations appear even and unlabored, nasal cannula not to exceed 92%. Talking in complete sentences without SOB. Lung sounds diminished bilaterally. No wheezing or rales. Abdomen: Normoactive bowel sounds x4 quadrants, abdomen is soft and round, nontender on palpation. Extremities: Right ankle with mild edema. Bilateral lower extremities well- perfused, full range of motion, pedal pulses are palpable bilaterally. Objective Objective Clinical Data: Abnormal lab results 12/31/18 12/31/18 12/31/18 Range/Units 09:20 10:05 10:05 RBC 3.34 L (4.00-5.20) m/cumm Hgb 8.2 L (12.0-15.5) g/dL Hct 29.2 L (36.0-46.0) % MCH 24.6 L (27.0-33.0) pg MCHC 28.1 L (32.0-36.0) g/dL RDW 18.0 H (11.7-14.6) % Absolute Lymphocytes 0.93 L (1.2-3.4) k/cumm pCO2 70 H* (34-47) mmHg pO2 78 L (83-108) mmHg ABG pH 7.31 L (7.35-7.45) ABG HCO3 35 H (22-28) mmol/L ABG Total CO2 34 H (22-29) mmol/L ABG Base Excess 8.8 H (-3-3) mmol/L Potassium 5.3 H (3.5-5.1) mmol/L Carbon Dioxide 35.7 H (21.0-32.0) mmol/L Anion Gap 2.3 L (3-11) mmol/L BUN 50 H (7-18) mg/dL Creatinine 1.98 H (0.55-1.02) mg/dL Glucose 140 H (70-100) mg/dL Calcium 8.3 L (8.5-10.1) mg/dL NT-Pro-B Natriuret Pep ( - 299) pg/mL 12/31/18 Range/Units 10:05 RBC (4.00-5.20) m/cumm Hgb (12.0-15.5) g/dL Hct (36.0-46.0) % MCH (27.0-33.0) pg MCHC (32.0-36.0) g/dL RDW (11.7-14.6) % Absolute Lymphocytes (1.2-3.4) k/cumm pCO2 (34-47) mmHg pO2 (83-108) mmHg ABG pH (7.35-7.45) ABG HCO3 (22-28) mmol/L ABG Total CO2 (22-29) mmol/L ABG Base Excess (-3-3) mmol/L Potassium (3.5-5.1) mmol/L Carbon Dioxide (21.0-32.0) mmol/L Anion Gap (3-11) mmol/L BUN (7-18) mg/dL Creatinine (0.55-1.02) mg/dL Glucose (70-100) mg/dL Calcium (8.5-10.1) mg/dL NT-Pro-B Natriuret Pep 326 H ( - 299) pg/mL Vital Signs Temperature 36.4 C L 12/31/18 11:45 Temperature Source Tympanic 12/31/18 11:45 Pulse 89 12/31/18 11:45 Pulse Rhythm Regular 12/31/18 07:15 Pulse 91 H 12/28/18 12:20 Respiratory Rate 20 12/31/18 11:45 Respiratory Effort Non-Labored 12/31/18 07:15 Respiratory Depth Normal 12/31/18 07:15 Respiratory Pattern Normal 12/31/18 07:15 Blood Pressure 128/72 12/31/18 11:45 Blood Pressure Mean 87 12/28/18 12:16 Blood Pressure Position Sitting 12/28/18 11:34 Pulse Oximetry 90 L 12/31/18 11:45 Oxygen Delivery Method Bi-pap 12/31/18 11:45 Oxygen Flow Rate 45 12/31/18 13:19 Fraction of Inspired Oxygen (FIO2) 44 12/31/18 13:19 Pain Level 0 12/31/18 11:45 Comment 12/28/18 12:29 Intake & Output 12/30/18 12/31/18 12/31/18 23:59 11:59 23:59 Intake Total 240 / 1350 944 / 1494 550 / 1494 Output Total 1400 / 3175 2250 / 2250 Balance -1160 / -1825 -1306 / -756 550 / -756 Weight 113.8 kg Intake: IV Oral 240 / 1350 940 / 1490 550 / 1490 Output: Urine 1400 / 3175 2250 / 2250 Other: Urine Color Yellow Yellow Urine Appearance Clear Clear Urine Odor Normal Normal Stool Occult Blood Negative Positive Stool Size Smear Small Stool Characteristics Formed Soft Hard Formed Voiding Methods Bedside Commode Bedside Commode Laboratory Results WBC 7.05 k/cumm (4.4-10.8) 12/31/18 10:05 RBC 3.34 m/cumm (4.00-5.20) L 12/31/18 10:05 Hgb 8.2 g/dL (12.0-15.5) L 12/31/18 10:05 Hct 29.2 % (36.0-46.0) L 12/31/18 10:05 MCV 87.4 fL (80-95) 12/31/18 10:05 MCH 24.6 pg (27.0-33.0) L 12/31/18 10:05 MCHC 28.1 g/dL (32.0-36.0) L 12/31/18 10:05 RDW 18.0 % (11.7-14.6) H 12/31/18 10:05 Plt Count 280 x1000/uL (130-400) 12/31/18 10:05 MPV 10.0 fL (8.0-11.0) 12/31/18 10:05 Immature Gran % 0.1 12/31/18 10:05 Neutrophils % 74.3 12/31/18 10:05 Lymphocytes % 13.2 12/31/18 10:05 Monocytes % 8.1 12/31/18 10:05 Eosinophils % 4.0 12/31/18 10:05 Basophils % 0.3 12/31/18 10:05 Absolute Neutrophils 5.24 k/cumm (1.2-6.7) 12/31/18 10:05 Absolute Lymphocytes 0.93 k/cumm (1.2-3.4) L 12/31/18 10:05 Absolute Monocytes 0.57 k/cumm (0.11-0.7) 12/31/18 10:05 Absolute Eosinophils 0.28 k/cumm (0.0-0.7) 12/31/18 10:05 Absolute Basophils 0.02 k/cumm (0.0-0.2) 12/31/18 10:05 Differential Comment Rbc morph reviewed 12/31/18 10:05 RBC Morphology See below 12/31/18 10:05 Polychromasia Present 12/30/18 06:30 Hypochromasia 1+ 12/31/18 10:05 Poikilocytosis 1+ 12/30/18 06:30 Basophilic Stippling Present 12/30/18 06:30 Anisocytosis 1+ 12/31/18 10:05 Sample Site Left radial 12/31/18 09:20 pCO2 70 mmHg (34-47) H* 12/31/18 09:20 pO2 78 mmHg (83-108) L 12/31/18 09:20 O2 Saturation 95 % (94-98) 12/31/18 09:20 ABG pH 7.31 (7.35-7.45) L 12/31/18 09:20 ABG HCO3 35 mmol/L (22-28) H 12/31/18 09:20 ABG Total CO2 34 mmol/L (22-29) H 12/31/18 09:20 ABG Base Excess 8.8 mmol/L (-3-3) H 12/31/18 09:20 FiO2 62% hfnc % 12/31/18 09:20 Sodium 137 mmol/L (136-145) 12/31/18 10:05 Potassium 5.3 mmol/L (3.5-5.1) H 12/31/18 10:05 Chloride 99 mmol/L (98-107) 12/31/18 10:05 Carbon Dioxide 35.7 mmol/L (21.0-32.0) H 12/31/18 10:05 Anion Gap 2.3 mmol/L (3-11) L 12/31/18 10:05 BUN 50 mg/dL (7-18) H 12/31/18 10:05 Creatinine 1.98 mg/dL (0.55-1.02) H 12/31/18 10:05 Estimated GFR/1.73 m2 24.78 (mL/min/1.73m2) 12/31/18 10:05 Glucose 140 mg/dL (70-100) H 12/31/18 10:05 Calcium 8.3 mg/dL (8.5-10.1) L 12/31/18 10:05 Magnesium 2.2 mg/dL (1.8-2.4) 12/31/18 10:05 Iron 20 ug/dL (50-175) L 12/30/18 06:30 TIBC 367 ug/dL (250-450) 12/30/18 06:30 Transferrin % Sat 5 % (15-50) L 12/30/18 06:30 Ferritin 19 ng/mL (8-388) 12/30/18 06:30 Total Bilirubin 0.4 mg/dL (0.2-1.0) 12/28/18 11:40 AST 12 U/L (15-37) L 12/28/18 11:40 ALT 10 U/L (14-59) L 12/28/18 11:40 Alkaline Phosphatase 78 U/L (46-116) 12/28/18 11:40 Troponin I < 0.05 ng/mL (0.00-0.06) 12/28/18 20:13 NT-Pro-B Natriuret Pep 326 pg/mL (-299) H 12/31/18 10:05 Total Protein 7.4 g/dL (6.4-8.2) 12/28/18 11:40 Albumin 3.1 g/dL (3.4-5.0) L 12/28/18 11:40 Vitamin B12 142 pg/mL (193-986) L 12/30/18 06:30 Folate 7.2 ng/mL (8.6-20.0) L 12/30/18 06:30 Procalcitonin 0.2 ng/mL 12/28/18 11:40 Urine Color Yellow (Yellow) 12/28/18 14:10 Urine Clarity Clear (Clear) 12/28/18 14:10 Urine pH 5.0 (5-8) 12/28/18 14:10 Ur Specific [place] 1.015 (1.005-1.025) 12/28/18 14:10 Urine Protein 30 mg/dL (Negative) H 12/28/18 14:10 Urine Ketones Negative mg/dL (Negative) 12/28/18 14:10 Urine Blood Trace-intact (Negative) H 12/28/18 14:10 Urine Nitrite Negative (Negative) 12/28/18 14:10 Urine Bilirubin Negative (Negative) 12/28/18 14:10 Urine Urobilinogen 0.2 EU/dL (Up TO 0.2) 12/28/18 14:10 Ur Leukocyte Esterase Negative (Negative) 12/28/18 14:10 Urine RBC 5-10 (0-2) H 12/28/18 14:10 Urine WBC 0-2 HPF (0-5) 12/28/18 14:10 Ur Epithelial Cells Rare HPF (Negative) 12/28/18 14:10 Urine Crystals Rare amorphous HPF (Negative) 12/28/18 14:10 Urine Bacteria Moderate HPF (Negative) 12/28/18 14:10 Urine Casts Negative LPF (Negative) 12/28/18 14:10 Urine Mucus Trace (Negative) 12/28/18 14:10 Ur Culture Indicated? Yes 12/28/18 14:10 Urine Glucose 250 mg/dL (Negative) H 12/28/18 14:10
--- NOTE | 2018-12-31 16:47 | NUR.NOTE ---
Nursing Note: This patient rang her call orozco at approximately 1630 to state that she wanted her marino catheter out. Patient stated that it was too uncomfortable and that she would simply use the BSC. Clinical Coordinator Halle Camacho RN notified, who in turn notified the ART COORDINATOR. Deisy SIMMONS removed the catheter.
[2018-12-31] MEDS: Atorvastatin 40 MG TAB 80 MG PO (20:12)
[2019-01-01] VITALS (15 sets, daily range): BP systolic 116–179; BP diastolic 63–79; PULSE 62–85; RESP 17–20; TEMP 36.4–37; O2SAT 85–98
[2019-01-01] MEDS: Acetaminophen 325 MG TAB 650 MG PO ×2 (06:42→17:30)
[2019-01-01 07:24] LABS: Absolute Basophil Count 0.02 k/cumm (0.0-0.2); Absolute Eosinophil Count 0.28 k/cumm (0.0-0.7); Absolute Monocyte Count 0.62 k/cumm (0.11-0.7); Absolute Neutrophil Count 5.01 k/cumm (1.2-6.7); Basophils % 0.3; HCT 29.5 % (36.0-46.0); HGB 8.6 g/dL (12.0-15.5); Lymphocytes % 15.6; Mean Corp. HGB Concentration 29.2 g/dL (32.0-36.0); Mean Corpuscular Hemoglobin 24.9 pg (27.0-33.0); Mean Corpuscular Volume 85.5 fL (80-95); Monocytes % 8.8; Neutrophils % 71.3; Platelet Count 306 x1000/uL (130-400); RBC 3.45 m/cumm (4.00-5.20); RBC Distribution Width 18.2 % (11.7-14.6); White Blood Cell Count 7.03 k/cumm (4.4-10.8)
[2019-01-01 07:33] LABS: Anion Gap 3.8 mmol/L (3-11); BUN 51 mg/dL (7-18); CO2 37.2 mmol/L (21.0-32.0); CREATININE 1.82 mg/dL (0.55-1.02); Calcium 8.7 mg/dL (8.5-10.1); Chloride 100 mmol/L (98-107); Estimated GFR 27.31 (mL/min/1.73m2); Glucose 109 mg/dL (70-100); Potassium 4.4 mmol/L (3.5-5.1); Sodium 141 mmol/L (136-145)
[2019-01-01 08:04] LABS: Anisocytosis 1+; Diff Comment RBC Morph Reviewed; Hypochromasia 1+; Polychromasia Present
[2019-01-01 08:06] LABS: Poikilocytes 1+
[2019-01-01] MEDS: Polyethylene Glycol 3350 17 GM PACKET PO (08:22)
[2019-01-01] MEDS: Folic Acid 1 MG TAB PO (08:23)
[2019-01-01] MEDS: amLODIPine 5 MG TAB PO ×2 (08:23→19:43)
[2019-01-01] MEDS: Omeprazole 20 MG CAPCR PO (08:23)
[2019-01-01] MEDS: Aspirin 81 MG CHEW PO (08:23)
[2019-01-01] MEDS: Apixaban 5 MG TAB PO ×2 (08:23→19:43)
[2019-01-01] MEDS: Ferrous Sulfate 325 MG TAB PO (08:23)
[2019-01-01] MEDS: Docusate Sodium 100 MG CAP PO ×2 (08:23→19:43)
[2019-01-01] MEDS: Bumetanide 1 MG TAB 0.5 MG PO (11:51)
--- NOTE | 2019-01-01 12:07 | PGE_ITS ---
Date of Service Date of service: 01/01/19 Time of Service: 12:07 Assessment and Plan Assessment and plan (1) Acute on chronic respiratory failure with hypoxia and hypercapnia: Start date: 01/01/19 Start time: 12:09 Status: Acute Assessment and plan: ABG revealing PCO2 70 po2 78, patient with acute on chronic hypercapnia and hypoxia in the setting of acute on chronic congestive heart failure. Improving after bumex drip. LCTAB Transitioned to bumex po 0.5 mg (2) Acute on chronic congestive heart failure with right ventricular diastolic dysfunction: Start date: 01/01/19 Start time: 12:10 Status: Acute Assessment and plan: Creatinine and BUN improved at 1.82 and 51 with bumex drip. Transitioned to PO bumex and stop HCTZ as kidney function has responded well. (3) Pulmonary hypertension: Start date: 01/01/19 Start time: 12:13 Status: Acute Assessment and plan: As evidenced by echo, dilated IVC with poor inspiration collapse. See above. (4) Anemia: Status: Chronic Assessment and plan: H/H low but stable better at 8.6 today 1 negative hemoccult and 2 positive hemoccult stool. Recheck again. Hold apixaban. (5) Type II diabetes mellitus: Start date: 01/01/19 Start time: 12:15 Status: Chronic Assessment and plan: Continue Levemir at home dose, short acting insulin per sliding scale. Hold metformin. Monitor blood glucose before meals. Adjust insulin as needed. AM glucose 109. (6) Obstructive sleep apnea: Status: Suspected Assessment and plan: Has a CPAP at home but does not wear it. Trialed bipap today at lowest setting and patient did not respond well to bipap. (7) Hypertension: Start date: 01/01/19 Start time: 12:17 Status: Chronic Assessment and plan: Continue amlodipine, bp liable. Continue to monitor (8) Hyperlipidemia: Start date: 01/01/19 Start time: 12:17 Status: Chronic Assessment and plan: Continue statin. (9) Atrial fibrillation: Start date: 01/01/19 Start time: 12:17 Status: Chronic Assessment and plan: Presumed. Continue apixaban. (10) DVT prophylaxis: Start date: 01/01/19 Start time: 12:17 Status: Acute Assessment and plan: Therapeutic on apixaban. (11) Discharge planning issues: Start date: 01/01/19 Start time: 12:17 Status: Acute Assessment and plan: She is a full code. This case was discussed with Dr. Broderick who is in agreement. (12) CKD (chronic kidney disease): Status: Acute Assessment and plan: CKD, creatinine on admission 1.83 as high as 2.30 during admission, in the past has been as elevated as 3.2. Today 1.82. Continue to monitor BMP. Responded well to bumex. see above Subjective Subjective Patient reports: feels better Interval history since last seen: Requiring 3 liters oxygen down from 5. Weight down 3 kg. Bumex PO started today. Exam Narrative Exam Narrative: General: 73-year-old female, sitting up in chair with oxygen. Improving after bumex drip HEENT: Normocephalic, atraumatic, pupils equal round, EOMI, nasal cannula in place at 3 liters Neck: Supple. Cardiovascular: Heart sounds regular, soft systolic murmur heard at the left sternal border, non-tachycardic. Respiratory: Respirations appear even and unlabored, nasal cannula not to exceed 92%. Talking in complete sentences without SOB. Lung sounds diminished bilaterally. No wheezing or rales. Abdomen: Normoactive bowel sounds x4 quadrants, abdomen is soft and round, nontender on palpation. Extremities: Right ankle with trace edema. Bilateral lower extremities well- perfused, full range of motion, pedal pulses are palpable bilaterally. Objective Objective Clinical Data: Abnormal lab results 01/01/19 01/01/19 Range/Units 06:45 06:45 RBC 3.45 L (4.00-5.20) m/cumm Hgb 8.6 L (12.0-15.5) g/dL Hct 29.5 L (36.0-46.0) % MCH 24.9 L (27.0-33.0) pg MCHC 29.2 L (32.0-36.0) g/dL RDW 18.2 H (11.7-14.6) % Absolute Lymphocytes 1.10 L (1.2-3.4) k/cumm Carbon Dioxide 37.2 H (21.0-32.0) mmol/L BUN 51 H (7-18) mg/dL Creatinine 1.82 H (0.55-1.02) mg/dL Glucose 109 H (70-100) mg/dL Vital Signs Temperature 36.5 C 01/01/19 08:15 Temperature Source Tympanic 01/01/19 08:15 Pulse 79 01/01/19 08:15 Pulse Rhythm Regular 01/01/19 08:32 Pulse 91 H 12/28/18 12:20 Respiratory Rate 19 01/01/19 08:15 Respiratory Effort Non-Labored 01/01/19 08:32 Respiratory Depth Normal 01/01/19 08:32 Respiratory Pattern Normal 01/01/19 08:32 Blood Pressure 128/78 01/01/19 08:15 Blood Pressure Mean 87 12/28/18 12:16 Blood Pressure Position Sitting 12/28/18 11:34 Pulse Oximetry 85 L 01/01/19 08:44 Oxygen Delivery Method Nasal Cannula 01/01/19 08:44 Oxygen Flow Rate 2 01/01/19 08:44 Fraction of Inspired Oxygen (FIO2) 44 12/31/18 13:19 Pain Level 0 01/01/19 08:23 Comment 01/01/19 04:05 Intake & Output 12/31/18 01/01/19 01/01/19 23:59 11:59 23:59 Intake Total 1480 / 2424 880 / 880 Output Total 2350 / 4600 950 / 950 Balance -870 / -2176 -70 / -70 Weight 111.5 kg Intake: IV Oral 1470 / 2410 880 / 880 Output: Urine 2350 / 4600 950 / 950 Other: Urine Color Pale Yellow Yellow Urine Appearance Clear Clear Urine Odor None Normal Comment stool mixed with urine Stool Occult Blood Negative Stool Size Small Stool Characteristics Formed Soft Hard Formed Black Voiding Methods Bedside Commode Bedside Commode Laboratory Results WBC 7.03 k/cumm (4.4-10.8) 01/01/19 06:45 RBC 3.45 m/cumm (4.00-5.20) L 01/01/19 06:45 Hgb 8.6 g/dL (12.0-15.5) L 01/01/19 06:45 Hct 29.5 % (36.0-46.0) L 01/01/19 06:45 MCV 85.5 fL (80-95) 01/01/19 06:45 MCH 24.9 pg (27.0-33.0) L 01/01/19 06:45 MCHC 29.2 g/dL (32.0-36.0) L 01/01/19 06:45 RDW 18.2 % (11.7-14.6) H 01/01/19 06:45 Plt Count 306 x1000/uL (130-400) 01/01/19 06:45 MPV 10.0 fL (8.0-11.0) 01/01/19 06:45 Immature Gran % 0.0 01/01/19 06:45 Neutrophils % 71.3 01/01/19 06:45 Lymphocytes % 15.6 01/01/19 06:45 Monocytes % 8.8 01/01/19 06:45 Eosinophils % 4.0 01/01/19 06:45 Basophils % 0.3 01/01/19 06:45 Absolute Neutrophils 5.01 k/cumm (1.2-6.7) 01/01/19 06:45 Absolute Lymphocytes 1.10 k/cumm (1.2-3.4) L 01/01/19 06:45 Absolute Monocytes 0.62 k/cumm (0.11-0.7) 01/01/19 06:45 Absolute Eosinophils 0.28 k/cumm (0.0-0.7) 01/01/19 06:45 Absolute Basophils 0.02 k/cumm (0.0-0.2) 01/01/19 06:45 Differential Comment Rbc morph reviewed 01/01/19 06:45 RBC Morphology See below 01/01/19 06:45 Polychromasia Present 01/01/19 06:45 Hypochromasia 1+ 01/01/19 06:45 Poikilocytosis 1+ 01/01/19 06:45 Basophilic Stippling Present 12/30/18 06:30 Anisocytosis 1+ 01/01/19 06:45 Sample Site Left radial 12/31/18 09:20 pCO2 70 mmHg (34-47) H* 12/31/18 09:20 pO2 78 mmHg (83-108) L 12/31/18 09:20 O2 Saturation 95 % (94-98) 12/31/18 09:20 ABG pH 7.31 (7.35-7.45) L 12/31/18 09:20 ABG HCO3 35 mmol/L (22-28) H 12/31/18 09:20 ABG Total CO2 34 mmol/L (22-29) H 12/31/18 09:20 ABG Base Excess 8.8 mmol/L (-3-3) H 12/31/18 09:20 FiO2 62% hfnc % 12/31/18 09:20 Sodium 141 mmol/L (136-145) 01/01/19 06:45 Potassium 4.4 mmol/L (3.5-5.1) 01/01/19 06:45 Chloride 100 mmol/L (98-107) 01/01/19 06:45 Carbon Dioxide 37.2 mmol/L (21.0-32.0) H 01/01/19 06:45 Anion Gap 3.8 mmol/L (3-11) 01/01/19 06:45 BUN 51 mg/dL (7-18) H 01/01/19 06:45 Creatinine 1.82 mg/dL (0.55-1.02) H 01/01/19 06:45 Estimated GFR/1.73 m2 27.31 (mL/min/1.73m2) 01/01/19 06:45 Glucose 109 mg/dL (70-100) H 01/01/19 06:45 Calcium 8.7 mg/dL (8.5-10.1) 01/01/19 06:45 Magnesium 2.0 mg/dL (1.8-2.4) 01/01/19 06:45 Iron 20 ug/dL (50-175) L 12/30/18 06:30 TIBC 367 ug/dL (250-450) 12/30/18 06:30 Transferrin % Sat 5 % (15-50) L 12/30/18 06:30 Ferritin 19 ng/mL (8-388) 12/30/18 06:30 Total Bilirubin 0.4 mg/dL (0.2-1.0) 12/28/18 11:40 AST 12 U/L (15-37) L 12/28/18 11:40 ALT 10 U/L (14-59) L 12/28/18 11:40 Alkaline Phosphatase 78 U/L (46-116) 12/28/18 11:40 Troponin I < 0.05 ng/mL (0.00-0.06) 12/28/18 20:13 NT-Pro-B Natriuret Pep 326 pg/mL (-299) H 12/31/18 10:05 Total Protein 7.4 g/dL (6.4-8.2) 12/28/18 11:40 Albumin 3.1 g/dL (3.4-5.0) L 12/28/18 11:40 Vitamin B12 142 pg/mL (193-986) L 12/30/18 06:30 Folate 7.2 ng/mL (8.6-20.0) L 12/30/18 06:30 Procalcitonin 0.2 ng/mL 12/28/18 11:40 Urine Color Yellow (Yellow) 12/28/18 14:10 Urine Clarity Clear (Clear) 12/28/18 14:10 Urine pH 5.0 (5-8) 12/28/18 14:10 Ur Specific [place] 1.015 (1.005-1.025) 12/28/18 14:10 Urine Protein 30 mg/dL (Negative) H 12/28/18 14:10 Urine Ketones Negative mg/dL (Negative) 12/28/18 14:10 Urine Blood Trace-intact (Negative) H 12/28/18 14:10 Urine Nitrite Negative (Negative) 12/28/18 14:10 Urine Bilirubin Negative (Negative) 12/28/18 14:10 Urine Urobilinogen 0.2 EU/dL (Up TO 0.2) 12/28/18 14:10 Ur Leukocyte Esterase Negative (Negative) 12/28/18 14:10 Urine RBC 5-10 (0-2) H 12/28/18 14:10 Urine WBC 0-2 HPF (0-5) 12/28/18 14:10 Ur Epithelial Cells Rare HPF (Negative) 12/28/18 14:10 Urine Crystals Rare amorphous HPF (Negative) 12/28/18 14:10 Urine Bacteria Moderate HPF (Negative) 12/28/18 14:10 Urine Casts Negative LPF (Negative) 12/28/18 14:10 Urine Mucus Trace (Negative) 12/28/18 14:10 Ur Culture Indicated? Yes 12/28/18 14:10 Urine Glucose 250 mg/dL (Negative) H 12/28/18 14:10
[2019-01-01] MEDS: Sucralfate 1 GM TAB PO ×2 (15:56→21:39)
[2019-01-01] MEDS: Normal Saline Flush 10 ML SYR IVP ×2 (15:57→16:03)
[2019-01-01] MEDS: Pantoprazole 40 MG VIAL IVP (16:41)
[2019-01-01] MEDS: Insulin Aspart 300 UNITS/3 ML PEN SC (16:58)
--- NOTE | 2019-01-01 17:52 | PDOC.CMPRO ---
Care Management Progress Note S/O: Jane was sitting up in her recliner. Ask HH to evaluate the electric plug situation when they open new services for her at home. She will also need Home O2. A: 73 y.o. female admitted for CHF P: Jane will be discharged home when medically ready per provider. She will continue to be evaluated for discharge needs, anticipate additional community referrals for increased services in home setting including RN/PT/OT/STATISTICAL MODELER through [facility]. RT will make arrangements for Oxygen through [facility] [place]. She will transport via private vehicle with her son.
[2019-01-01] MEDS: Atorvastatin 40 MG TAB 80 MG PO (19:43)
[2019-01-02] VITALS (11 sets, daily range): BP systolic 125–156; BP diastolic 67–80; PULSE 64–88; RESP 18–21; TEMP 36.4–36.8; O2SAT 83–96
[2019-01-02] MEDS: Sucralfate 1 GM TAB PO ×4 (06:41→20:57)
[2019-01-02 08:06] LABS: Abs Immature Grans 0.01 k/cumm (0.0-0.09); Absolute Basophil Count 0.03 k/cumm (0.0-0.2); Absolute Eosinophil Count 0.33 k/cumm (0.0-0.7); Absolute Neutrophil Count 4.42 k/cumm (1.2-6.7); Basophils % 0.5; Eosinophils % 5.1; HCT 30.1 % (36.0-46.0); HGB 8.6 g/dL (12.0-15.5); Immature Grans % 0.2; Lymphocytes % 16.9; Mean Corp. HGB Concentration 28.6 g/dL (32.0-36.0); Mean Corpuscular Hemoglobin 24.4 pg (27.0-33.0); Mean Corpuscular Volume 85.5 fL (80-95); Mean Platelet Volume 9.7 fL (8.0-11.0); Monocytes % 9.2; Neutrophils % 68.1; Platelet Count 329 x1000/uL (130-400); RBC 3.52 m/cumm (4.00-5.20); RBC Distribution Width 18.6 % (11.7-14.6); White Blood Cell Count 6.49 k/cumm (4.4-10.8)
[2019-01-02] MEDS: Ferrous Sulfate 325 MG TAB PO (08:15)
[2019-01-02] MEDS: Acetaminophen 325 MG TAB 650 MG PO (08:15)
[2019-01-02] MEDS: Polyethylene Glycol 3350 17 GM PACKET PO (08:15)
[2019-01-02] MEDS: Docusate Sodium 100 MG CAP PO ×2 (08:15→14:27)
[2019-01-02] MEDS: Aspirin 81 MG CHEW PO (08:15)
[2019-01-02] MEDS: amLODIPine 5 MG TAB PO ×2 (08:15→19:37)
[2019-01-02] MEDS: Apixaban 5 MG TAB PO (08:15)
[2019-01-02] MEDS: Folic Acid 1 MG TAB PO (08:16)
[2019-01-02] MEDS: Normal Saline Flush 10 ML SYR IVP ×2 (08:16→15:46)
[2019-01-02 08:25] LABS: Anion Gap 4.7 mmol/L (3-11); BUN 52 mg/dL (7-18); CO2 37.3 mmol/L (21.0-32.0); CREATININE 1.99 mg/dL (0.55-1.02); Chloride 99 mmol/L (98-107); Estimated GFR 24.63 (mL/min/1.73m2); Glucose 114 mg/dL (70-100); Potassium 4.4 mmol/L (3.5-5.1); Sodium 141 mmol/L (136-145)
[2019-01-02] MEDS: Bumetanide 1 MG TAB 0.5 MG PO (09:21)
[2019-01-02] MEDS: Insulin Aspart 300 UNITS/3 ML PEN SC ×2 (12:33→16:36)
--- NOTE | 2019-01-02 15:09 | PGE_ITS ---
Date of Service Date of service: 01/02/19 Time of Service: 15:09 Assessment and Plan Assessment and plan (1) Acute on chronic respiratory failure with hypoxia and hypercapnia: Status: Acute Assessment and plan: I think it is very important to get the patient back on her CPAP at night and figure out a way to have a working CPAP at home. Meanwhile, she is requiring quite a bit of oxygen and could benefit from PT/OT and possibly SNF. Continue diuresis. Discussed with care management. (2) Acute on chronic congestive heart failure with right ventricular diastolic dysfunction: Status: Acute Assessment and plan: Continue PO bumex and monitor I/O's, daily weights, Cr. CPAP discussion above. (3) Pulmonary hypertension: Status: Acute Assessment and plan: RVSP >60 mmHg. Severe. Ultimately, would benefit from follow up with pulmonology. At this time, continue to diurese and encourage CPAP use at night. (4) Anemia: Status: Chronic Assessment and plan: normocytic, stable. Hemoccult +. D/c asa and apixaban (on it for Afib). Would potentially benefit from outpatient endoscopy - however, too high risk for anesthesia at our facility. No longer safe for anticoagulation. (5) Type II diabetes mellitus: Status: Chronic Assessment and plan: Continue current regimen. (6) Obstructive sleep apnea: Status: Suspected Assessment and plan: as above (7) Hypertension: Status: Chronic Assessment and plan: Continue amlodipine, bp liable. Continue to monitor (8) Hyperlipidemia: Status: Chronic Assessment and plan: Continue statin. (9) Atrial fibrillation: Status: Chronic Assessment and plan: Paroxysmal. No longer safe for anticoagulation. As above (10) CKD (chronic kidney disease): Status: Acute Assessment and plan: Cr 1.99 today - close to baseline. Recheck again in am with the new dose of bumex. (11) DVT prophylaxis: Status: Acute Assessment and plan: Apixaban d/c'ed due to hemoccult positive stools and anemia. Recommend GI workup prior to resuming apixaban. Start TEDs and SCDs (12) Discharge planning issues: Status: Acute Assessment and plan: Full code I think it is a good idea to get palliative care involved - consulted. May require rehab. Oxygen requirement is new. Does not have an outlet to plug in her CPAP at home. Subjective Subjective Interval history since last seen: Required 6L of O2 when ambulating and multiple stops to rest during her 4 minute walk. At home, she was on no oxygen at all prior to coming to the hospital on this admission. Previously, she used up to 2 L. She states she has a CPAP machine at home, but she hasn't been able to use it in her new trailer because there are not enough outlets. Her chief complaint to me today is that she is weak. Denies dizziness, chest pain, nausea. Cough has been nonproductive. Shortness of breath is better. She also complains of feeling like her Left ear is full of water and having pain in her right nostril. She is not very excited about the idea of possible rehab, but is willing to work with PT here. States her breathing is better than when she first came in, and her legs are less swollen, but she is not back to baseline. Exam Narrative Exam Narrative: Genera: pleasant obese female, sitting up in a chair, on 4L when I am talking to her, no dyspnea noted HEENT: EOMI, MMM, no tenderness to facial percussion Heart: RRR, + DEMETRICE Lungs: Diminished breath sounds B GI: abdomen is soft, nontender, nondistended Extremities: 1+ BLE edema, symmetric, no clubbing/cyanosis Objective Objective Clinical Data: Abnormal lab results 01/02/19 01/02/19 Range/Units 07:40 07:40 RBC 3.52 L (4.00-5.20) m/cumm Hgb 8.6 L (12.0-15.5) g/dL Hct 30.1 L (36.0-46.0) % MCH 24.4 L (27.0-33.0) pg MCHC 28.6 L (32.0-36.0) g/dL RDW 18.6 H (11.7-14.6) % Absolute Lymphocytes 1.10 L (1.2-3.4) k/cumm Carbon Dioxide 37.3 H (21.0-32.0) mmol/L BUN 52 H (7-18) mg/dL Creatinine 1.99 H (0.55-1.02) mg/dL Glucose 114 H (70-100) mg/dL Vital Signs Temperature 36.8 C 01/02/19 07:43 Temperature Source Tympanic 01/02/19 07:43 Pulse 66 01/02/19 07:43 Pulse Rhythm Regular 01/02/19 09:32 Pulse 91 H 12/28/18 12:20 Respiratory Rate 18 01/02/19 07:43 Respiratory Effort 01/02/19 09:32 Respiratory Depth Normal 01/02/19 09:32 Respiratory Pattern Normal 01/02/19 09:32 Blood Pressure 125/67 01/02/19 07:43 Blood Pressure Mean 87 12/28/18 12:16 Blood Pressure Position Sitting 12/28/18 11:34 Pulse Oximetry 84 L 01/02/19 10:15 Oxygen Delivery Method Room Air 01/02/19 10:15 Oxygen Flow Rate 0 01/02/19 10:15 Fraction of Inspired Oxygen (FIO2) 44 12/31/18 13:19 Pain Level 5 01/02/19 07:43 Comment 01/02/19 00:17 Intake & Output 01/01/19 01/02/19 01/02/19 23:59 11:59 23:59 Intake Total 480 / 1360 980 / 1430 450 / 1430 Output Total 1875 / 2825 2350 / 2650 300 / 2650 Balance -1395 / -1465 -1370 / -1220 150 / -1220 Weight 112.7 kg Intake: Oral 480 / 1360 980 / 1430 450 / 1430 Output: Urine 1875 / 2825 2350 / 2650 300 / 2650 Other: Urine Color Yellow Yellow Yellow Urine Appearance Clear Clear Clear Urine Odor Normal Normal Stool Occult Blood Negative Stool Size Small Moderate Stool Characteristics Soft Soft Formed Brown Brown Voiding Methods Bedside Commode Bedside Commode Laboratory Results WBC 6.49 k/cumm (4.4-10.8) 01/02/19 07:40 RBC 3.52 m/cumm (4.00-5.20) L 01/02/19 07:40 Hgb 8.6 g/dL (12.0-15.5) L 01/02/19 07:40 Hct 30.1 % (36.0-46.0) L 01/02/19 07:40 MCV 85.5 fL (80-95) 01/02/19 07:40 MCH 24.4 pg (27.0-33.0) L 01/02/19 07:40 MCHC 28.6 g/dL (32.0-36.0) L 01/02/19 07:40 RDW 18.6 % (11.7-14.6) H 01/02/19 07:40 Plt Count 329 x1000/uL (130-400) 01/02/19 07:40 MPV 9.7 fL (8.0-11.0) 01/02/19 07:40 Immature Gran % 0.2 01/02/19 07:40 Neutrophils % 68.1 01/02/19 07:40 Lymphocytes % 16.9 01/02/19 07:40 Monocytes % 9.2 01/02/19 07:40 Eosinophils % 5.1 01/02/19 07:40 Basophils % 0.5 01/02/19 07:40 Absolute Neutrophils 4.42 k/cumm (1.2-6.7) 01/02/19 07:40 Absolute Lymphocytes 1.10 k/cumm (1.2-3.4) L 01/02/19 07:40 Absolute Monocytes 0.60 k/cumm (0.11-0.7) 01/02/19 07:40 Absolute Eosinophils 0.33 k/cumm (0.0-0.7) 01/02/19 07:40 Absolute Basophils 0.03 k/cumm (0.0-0.2) 01/02/19 07:40 Differential Comment Rbc morph reviewed 01/01/19 06:45 RBC Morphology See below 01/01/19 06:45 Polychromasia Present 01/01/19 06:45 Hypochromasia 1+ 01/01/19 06:45 Poikilocytosis 1+ 01/01/19 06:45 Basophilic Stippling Present 12/30/18 06:30 Anisocytosis 1+ 01/01/19 06:45 Sample Site Left radial 12/31/18 09:20 pCO2 70 mmHg (34-47) H* 12/31/18 09:20 pO2 78 mmHg (83-108) L 12/31/18 09:20 O2 Saturation 95 % (94-98) 12/31/18 09:20 ABG pH 7.31 (7.35-7.45) L 12/31/18 09:20 ABG HCO3 35 mmol/L (22-28) H 12/31/18 09:20 ABG Total CO2 34 mmol/L (22-29) H 12/31/18 09:20 ABG Base Excess 8.8 mmol/L (-3-3) H 12/31/18 09:20 FiO2 62% hfnc % 12/31/18 09:20 Sodium 141 mmol/L (136-145) 01/02/19 07:40 Potassium 4.4 mmol/L (3.5-5.1) 01/02/19 07:40 Chloride 99 mmol/L (98-107) 01/02/19 07:40 Carbon Dioxide 37.3 mmol/L (21.0-32.0) H 01/02/19 07:40 Anion Gap 4.7 mmol/L (3-11) 01/02/19 07:40 BUN 52 mg/dL (7-18) H 01/02/19 07:40 Creatinine 1.99 mg/dL (0.55-1.02) H 01/02/19 07:40 Estimated GFR/1.73 m2 24.63 (mL/min/1.73m2) 01/02/19 07:40 Glucose 114 mg/dL (70-100) H 01/02/19 07:40 Calcium 9.0 mg/dL (8.5-10.1) 01/02/19 07:40 Magnesium 2.0 mg/dL (1.8-2.4) 01/02/19 07:40 Iron 20 ug/dL (50-175) L 12/30/18 06:30 TIBC 367 ug/dL (250-450) 12/30/18 06:30 Transferrin % Sat 5 % (15-50) L 12/30/18 06:30 Ferritin 19 ng/mL (8-388) 12/30/18 06:30 Total Bilirubin 0.4 mg/dL (0.2-1.0) 12/28/18 11:40 AST 12 U/L (15-37) L 12/28/18 11:40 ALT 10 U/L (14-59) L 12/28/18 11:40 Alkaline Phosphatase 78 U/L (46-116) 12/28/18 11:40 Troponin I < 0.05 ng/mL (0.00-0.06) 12/28/18 20:13 NT-Pro-B Natriuret Pep 326 pg/mL (-299) H 12/31/18 10:05 Total Protein 7.4 g/dL (6.4-8.2) 12/28/18 11:40 Albumin 3.1 g/dL (3.4-5.0) L 12/28/18 11:40 Vitamin B12 142 pg/mL (193-986) L 12/30/18 06:30 Folate 7.2 ng/mL (8.6-20.0) L 12/30/18 06:30 Procalcitonin 0.2 ng/mL 12/28/18 11:40 Urine Color Yellow (Yellow) 12/28/18 14:10 Urine Clarity Clear (Clear) 12/28/18 14:10 Urine pH 5.0 (5-8) 12/28/18 14:10 Ur Specific [place] 1.015 (1.005-1.025) 12/28/18 14:10 Urine Protein 30 mg/dL (Negative) H 12/28/18 14:10 Urine Ketones Negative mg/dL (Negative) 12/28/18 14:10 Urine Blood Trace-intact (Negative) H 12/28/18 14:10 Urine Nitrite Negative (Negative) 12/28/18 14:10 Urine Bilirubin Negative (Negative) 12/28/18 14:10 Urine Urobilinogen 0.2 EU/dL (Up TO 0.2) 12/28/18 14:10 Ur Leukocyte Esterase Negative (Negative) 12/28/18 14:10 Urine RBC 5-10 (0-2) H 12/28/18 14:10 Urine WBC 0-2 HPF (0-5) 12/28/18 14:10 Ur Epithelial Cells Rare HPF (Negative) 12/28/18 14:10 Urine Crystals Rare amorphous HPF (Negative) 12/28/18 14:10 Urine Bacteria Moderate HPF (Negative) 12/28/18 14:10 Urine Casts Negative LPF (Negative) 12/28/18 14:10 Urine Mucus Trace (Negative) 12/28/18 14:10 Ur Culture Indicated? Yes 12/28/18 14:10 Urine Glucose 250 mg/dL (Negative) H 12/28/18 14:10
[2019-01-02] MEDS: Pantoprazole 40 MG VIAL IVP (15:46)
--- NOTE | 2019-01-02 16:04 | PDOC.CMPRO ---
- If Service Date Differs Date of service: 01/02/19 Time of Service: 16:04 Care Management Progress Note S/O: Jane is sitting up in the chair she is alert and engaged. She states that she does have a CPAP at home she states I cannot remember that last time I wore it, its been years. Jane states she would like to be able to return home. She has been on oxygen in the past she states she does have an area that she can plug in a concentrator if needed. She would need extra tubing to be able to move around the trailer. Jane was unable to maintain her oxygen saturation during ambulation today she required 6 liters during ambulation. Jane will have a new PT consult today to determine if she will need a rehab prior to returning home. Jane would like to return home if possible JUDAH did discuss possibility of SNF pending PT recommendations. Jane will consider this and speak with her son this evening before making a decision. CM did contact home health and provided the referral in case of home discharge vs SNF. A: 73 y.o. female admitted for CHF P: Jane will be discharged home vs SNF when medically ready per provider. She will continue to be evaluated for discharge needs, disposition pending PT recommendations home with home health services versus SNF.
[2019-01-02] MEDS: Fluticasone NASAL SPRAY 16 GM BTL NS (16:37)
[2019-01-02] MEDS: Carbamide Peroxide 15 ML BTL AU (19:34)
[2019-01-02] MEDS: Atorvastatin 40 MG TAB 80 MG PO (19:34)
[2019-01-03] VITALS (7 sets, daily range): BP systolic 125–147; BP diastolic 58–66; PULSE 69–86; RESP 18–28; TEMP 36.6–37; O2SAT 87–94
[2019-01-03 07:37] LABS: Abs Immature Grans 0.01 k/cumm (0.0-0.09); Absolute Basophil Count 0.04 k/cumm (0.0-0.2); Absolute Eosinophil Count 0.39 k/cumm (0.0-0.7); Absolute Monocyte Count 0.72 k/cumm (0.11-0.7); Absolute Neutrophil Count 4.95 k/cumm (1.2-6.7); Basophils % 0.6; Eosinophils % 5.4; HCT 30.4 % (36.0-46.0); HGB 8.8 g/dL (12.0-15.5); Immature Grans % 0.1; Lymphocytes % 15.3; Mean Corp. HGB Concentration 28.9 g/dL (32.0-36.0); Mean Corpuscular Hemoglobin 24.8 pg (27.0-33.0); Mean Corpuscular Volume 85.6 fL (80-95); Mean Platelet Volume 9.7 fL (8.0-11.0); Neutrophils % 68.6; Platelet Count 334 x1000/uL (130-400); RBC 3.55 m/cumm (4.00-5.20); RBC Distribution Width 18.7 % (11.7-14.6); White Blood Cell Count 7.21 k/cumm (4.4-10.8)
[2019-01-03 07:53] LABS: Anion Gap 4.3 mmol/L (3-11); BUN 53 mg/dL (7-18); CO2 37.7 mmol/L (21.0-32.0); CREATININE 1.96 mg/dL (0.55-1.02); Calcium 9.1 mg/dL (8.5-10.1); Chloride 98 mmol/L (98-107); Estimated GFR 25.07 (mL/min/1.73m2); Glucose 131 mg/dL (70-100); Magnesium 1.9 mg/dL (1.8-2.4); Potassium 4.3 mmol/L (3.5-5.1); Sodium 140 mmol/L (136-145)
[2019-01-03] MEDS: amLODIPine 5 MG TAB PO (08:43)
[2019-01-03] MEDS: Polyethylene Glycol 3350 17 GM PACKET PO (08:43)
[2019-01-03] MEDS: Folic Acid 1 MG TAB PO (08:43)
[2019-01-03] MEDS: Docusate Sodium 100 MG CAP PO ×2 (08:43→15:09)
[2019-01-03] MEDS: Carbamide Peroxide 15 ML BTL AU (08:43)
[2019-01-03] MEDS: Ferrous Sulfate 325 MG TAB PO (08:43)
[2019-01-03] MEDS: Bumetanide 1 MG TAB 0.5 MG PO (08:43)
[2019-01-03] MEDS: Sucralfate 1 GM TAB PO ×3 (08:43→16:24)
[2019-01-03] MEDS: Fluticasone NASAL SPRAY 16 GM BTL NS (08:44)
--- NOTE | 2019-01-03 11:19 | PT.INIE ---
Date of service: 01/03/19 Time of Service: 09:42 PT Notes Inpatient Physical Therapy Evaluation Date: 01/03/2019 Referring Doctor: Soco Varner MD PT Orders: PT CONSULT: Limited Ability Precautions: Fall. Standard. Activity as tolerated Patient Profile/Admitting Diagnosis: Patient is a 73-year-old female who presented to the ED on 12/28/2018 via EMS with chief complaints of malaise, cough, and progressive shortness of breath. Patient is diagnosed with congestive heart failure. PMHX: Medical History HTN (hypertension) (Chronic) Insulin dependent diabetes mellitus (Chronic) YARELY (obstructive sleep apnea) (Chronic) Spinal stenosis, lumbar (Acute) Surgical History Biopsy, Temporal Artery (01/18/15) DR.C YOUNG Colonoscopy - MAC (08/14/16) \ Social History/Home Situation: Patient lives with her son in a mobile home in [place], [place]. She has three steps to enter the home. Equipment Owned/DME: [place] Subjective: Patient states she wants to ?get on with it?. She denies feeling out of breath, and is ready to be up and moving. She denies headache, dizziness, lightheadedness and is agreeable to PT evaluation. Objective: General Observation: Patient is seen seated in recliner. She has an IV in her L UE and has a desk monitor. Oxygen supplementation at 2 L/min via NC. Mental Status: Alert and oriented x 4 Pain: Patient denies pain. Vital Signs: SpO2: 88-94% during ambulation. ROM: Right Lower Extremity: Hip flexion WFL. Hip abduction WFL. Knee flexion WFL. Ankle dorsiflexion WFL. Ankle plantarflexion WFL. Left Lower Extremity: Hip flexion WFL. Hip abduction WFL. Knee flexion WFL. Ankle dorsiflexion WFL. Ankle plantarflexion WFL. Strength: Right Lower Extremity: Hip flexors 4/5. Hip abductors 3/5. Knee flexors 3-/5. Knee extensors 4/5. Ankle dorsiflexors 4/5. Ankle plantarflexors 5/5. Left Lower Extremity:Hip flexors 4/5. Hip abductors 3/5. Knee flexors 3-/5. Knee extensors 4/5. Ankle dorsiflexors 4/5. Ankle plantarflexors 4/5. Bed Mobility/Transfers: Rolling Independent Supine to sit Independent Sit to supine Independent Sit to stand SBA Stand to sit SBA Bed to chair CGA Chair to bed CGA Gait: Patient ambulated 150? with FWW, CGA, and on 3-4L/min with via NC. She exhibited decreased step length, and decreased gait speed. Balance: 77.5 on 2.4 Static Sitting: Normal Dynamic Sitting: Normal Static Standing: Good Dynamic Standing: Fair Special Tests: Mobility Limitations Standardized Measure [facility] AM-PAC 6 clicks Basic Mobility Inpatient Short Form: Raw Score: 18 CMS Score: 47% 2-minute walk test: 87 steps in two minutes (normative data for community-dwelling adults above 65 years of age is 177 steps) signifying impaired aerobic capacity and impaired mobility placing client at a fall risk. Informed Consent/Education: Patient instructed in purpose of PT consult and plan of care. Assessment: Patient is a 73-year-old female who presented to the ED on 12/28/2018 via EMS with chief complaints of malaise, cough, and progressive shortness of breath. She has the support of her son at home, and she reported that she felt confident in her abilities to get around in her house. She is deconditioned, and the results of her 2-minute walk test classify having impaired aerobic capacity as well as being a fall-risk. She is also lacking strength in her extremities bilaterally. Patient presents with clinical signs and symptoms consistent with current/admitting diagnoses that have resulted to mobility limitations, gait instability, generalized weakness, and impairment of motor control as demonstrated by the following impairment level findings: 1. Decreased strength to B LE major muscle groups 2. Impaired sitting/standing balance 3. Impaired activity tolerance Impairments are contributing to the following functional limitations: 1. Dependent bed mobility skills 2. Increased dependence with transfers 3. Inability to safely ambulate without assistive device and physical assistance 4. Increase completion time for mobility ADL performance 5. Increased fall risk 6. Inability to negotiate steps alone safely Patient is assessed as a 70249 moderate complexity based on the following: History: Patient is a 73-year-old female who presented to the ED on 12/28/2018 via EMS with chief complaints of malaise, cough, and progressive shortness of breath. Examination: Demonstrable impairment in strength, balance, and range of motion with underlying impairments and functional limitations as documented above Presentation: Evolving Decision Makin moderate complexity Goals: Goals X1 week 1. Bed-Chair independent 2. Chair-Bed independent 3. Independent gait on level surface with use of least restrictive device for at least 200 feet without report of pain nor dyspnea 4. Independent stair negotiation while holding onto bilateral rails for at least 4 steps without report of pain nor dyspnea 5. Independent with home exercise program 6. Good static and dynamic standing balance/tolerance Plan of Care/Treatment Plan: 1-2x/day, 7 days/week x 1 week. Plan of care has been reviewed with the [facility] APPRENTICE providing the service under Physical Therapy direction. Initiate Physical Therapy intervention for strengthening, bed mobility, transfers, gait, stairs, balance training, use of assistive device. DISCHARGE RECOMMENDATIONS: Patient is to be discharged to home under the care of her son after all of the above goals are met and she is medically stable. Home health PT is recommended. Patient would benefit from a FWW. TREATMENT CODE/TIME: 17710 x 20 minutes starting at 9:42 AM. Thank you very much for this referral. Gregor Miranda, [facility] In consultation with: Ernestine Nieto PT, DPT, CLT [facility]
[2019-01-03] MEDS: Insulin Aspart 300 UNITS/3 ML PEN SC (12:17)
--- NOTE | 2019-01-03 14:25 | DSE_ITS ---
Date of service: 01/03/19 Time of Service: 14:25 DS: Diagnosis Discharge Diagnosis (1) Acute on chronic respiratory failure with hypoxia and hypercapnia: Status: Acute (2) Acute on chronic congestive heart failure with right ventricular diastolic dysfunction: Status: Acute (3) Pulmonary hypertension: Status: Acute (4) Anemia: Status: Chronic (5) Type II diabetes mellitus: Status: Chronic (6) Obstructive sleep apnea: Status: Suspected (7) Hypertension: Status: Chronic (8) Hyperlipidemia: Status: Chronic (9) Atrial fibrillation: Status: Chronic (10) CKD (chronic kidney disease): Status: Acute (11) Morbid obesity: Status: Chronic (12) Iron deficiency: Status: Acute (13) Folate deficiency: Status: Acute (14) Heme + stool: Status: Acute Discharge Plan Disposition Patient Disposition: HOME W/HOME HEALTH SERVICE Condition: Improving Discharge Details Chief Complaint: SOB Clinical Impression: CHF (congestive heart failure) Reason For Visit: CONGESTIVE HEART FAILURE Admit Date/Time: 12/28/18 13:47 Admit Provider: Remy Contreras Attending Provider: Remy Contreras Primary Care Provider: Dru Armstrong ED Provider: Audi Sam Hospital Course Hospital Course: Ms Walker is a 73 year old female with PMHx of chronic diastolic CHF with anaphylaxis to lasix, severe pulmonary hypertension, untreated YARELY, chronic hypoxic hypercapnic respiratory failure, not compliant with CPAP and previously but not currently on oxygen on home, who was admitted to [facility] hospitalist service on 12/28/18 for acute on chronic hypoxic hypercapnic respiratory failure requiring more aggressive diuresis and BiPAP therapy. While metalazone was trialed, the patient evidently can tolerate bumex even though she is allergic to lasix. She was started on IV bumex with excellent diuresis as a result. The patient was briefly on bumex drip, then transitioned to PO bumex with ongoing weight loss and kidney function which is near her normal. It would naturally be a good idea for the patient to undergo another sleep study and try to get back to CPAP use at night. She does require 2 L of oxygen at rest and 4 L with activity (O2 sat of 90% on 4L ambulating). As far as her anemia, the patient did have 2 hemoccult positive stools on this admission. She was on both aspirin and eliquis on admission. We held her aspirin and apixaban. She never had massive bleeding and had not required blood transfusion. She was initiated on PO iron, Vitamin C, folic acid, PPI, and carafate. PCP is recommended to refer her for GI workup at a tertiary care facility if anticoagulation is to be resumed. We do not feel safe continuing it on discharge. Her hemoglobin on discharge is 8.8. She is being discharged home today with referral to home health nursing (please, consider her for a [facility] program), PT, OT, COOKER TENDER, better breather's program. She will be receiving a prescription for a nebulizer machine as well which she states she does not have at home. At this time, the patient is medically stable for discharge. Care for patient as well as completion of her discharge paperwork took 45 minutes on the day of discharge. Home Meds and New Rx's Prescriptions: New ipratropium-albuterol 0.5 mg-3 mg(2.5 mg base)/3 mL Solution For Nebulization 3 ml UPD Q6H PRN PRN (Reason: shortness of breath or wheezing) Qty: 180 RF: 0 ferrous sulfate 325 mg (65 mg iron) Tablet 325 mg PO DAILY Qty: 30 RF: 0 bumetanide 1 mg Tablet 0.5 mg PO DAILY Qty: 30 RF: 0 fluticasone propionate 50 mcg/actuation [place],Suspension 1 spray NS DAILY Qty: 15.8 RF: 0 sucralfate 1 gram Tablet 1 g PO AC & HS Qty: 120 RF: 0 folic acid 1 mg Tablet 1 mg PO DAILY Qty: 30 RF: 0 pantoprazole [Protonix] 40 mg tablet,delayed release (DR/EC) 40 mg PO DAILY Qty: 30 RF: 0 ascorbic acid (vitamin C) [Vitamin C] 250 mg tablet 250 mg PO BID Qty: 60 RF: 0 Continued atorvastatin [Lipitor] 80 MG tablet 80 mg PO DAILY RF: 0 Levemir FlexTouch U-100 Insuln 100 unit/mL (3 mL) Insulin Pen 25 unit subcut .QHS RF: 0 polyethylene glycol 3350 17 gram Powder In Packet 17 g PO DAILY PRN PRN (Reason: Constipation) Qty: 0 RF: 0 docusate sodium [Colace] 100 mg Capsule 100 mg PO TID PRN PRNQty: 0 RF: 0 Novolog Flexpen U-100 Insulin 100 unit/mL Insulin Pen 0 units subcut 0800,1200,1700 Qty: 0 RF: 0 amlodipine 5 mg Tablet 5 mg PO BID RF: 0 Calcium 600 with Vitamin D3 600 mg(1,500mg) -400 unit Tablet,Chewable 1 tab PO BID RF: 0 Discontinued hydrochlorothiazide 12.5 mg Capsule 12.5 mg PO DAILY Qty: 0 RF: 0 metformin 1,000 mg Tablet 1,000 mg PO BID RF: 0 aspirin 81 mg Tablet,Chewable 81 mg PO DAILY RF: 0 Eliquis 5 mg Tablet 5 mg PO BID RF: 0 Discharge Instructions Instructions: Bumetanide (By mouth), Heart Failure (DC) Additional Instructions: Return to the hospital with any fever, bleeding, chest pain, shortness of breath. Daily weights. Care Plan Goals: Home with home health RN, PT, OT, COOKER TENDER. Consider [facility]. Needs daily weights. CBC and BMP in 1 week - results to PCP. Stand Alone Forms: Nursing Discharge Form Referrals: Dru Armstrong MD [Primary Care Provider] - (You will need to call the office on morning to schedule a follow up appointment within a week) Activity:: Activity as Tolerated Equipment/Supplies:: 2-4 L; nebulizer machine Diet:: Low Sodium Discharge Orders Discharge Orders: Discharge Order (Routine); Ordered 01/03/19 Ordered By: Soco Varner Other Ambulatory Orders: Basic Metabolic Panel (Routine) Timeframe: 1 Week Location: Determined by Patient Ordered By: Soco Varner Complete Blood Count No Diff (Routine) Timeframe: 1 Week Location: Determined by Patient Ordered By: Soco Varner PFT (Central/DLCO/Volumes) (Outpt) (ONCE) Timeframe: 20190117 Facility: [facility] - Location: Respiratory Therapy Ordered By: Soco Varner DS: Summary Status at Discharge Functional status at discharge: uses cane/walker Overall status at discharge: patient is back to baseline Mental Status: mental status grossly normal Speech and Movement: speech and movement normal Mood: congruent mood Affect: normal affect Exam Narrative Exam Narrative: Genera: pleasant obese female, sitting up in a chair, on 2L of O2 HEENT: EOMI, MMM, no tenderness to facial percussion Heart: RRR, + DEMETRICE Lungs: Diminished breath sounds B GI: abdomen is soft, nontender, nondistended Extremities: 1+ BLE edema, symmetric, no clubbing/cyanosis Psych Mental Status: mental status grossly normal Speech and Movement: speech and movement normal Mood: congruent mood Affect: normal affect DS: Data Vitals/I&O Vitals and I&O: Vital Signs Temperature 36.6 C 01/03/19 08:00 Temperature Source Temporal Artery Scan 01/03/19 08:00 Pulse 73 01/03/19 08:00 Pulse Rhythm Regular 01/03/19 08:35 Pulse 91 H 12/28/18 12:20 Respiratory Rate 20 01/03/19 08:00 Respiratory Effort Non-Labored 01/03/19 08:35 Respiratory Depth Normal 01/03/19 08:35 Respiratory Pattern Normal 01/03/19 08:35 Blood Pressure 125/66 01/03/19 08:00 Blood Pressure Mean 87 12/28/18 12:16 Blood Pressure Position Sitting 12/28/18 11:34 Pulse Oximetry 94 L 01/03/19 08:00 Oxygen Delivery Method OxyMask 01/03/19 08:00 Oxygen Flow Rate 2 01/03/19 08:00 Fraction of Inspired Oxygen (FIO2) 44 12/31/18 13:19 Pain Level 0 01/03/19 08:00 Comment 01/03/19 04:50 Intake & Output 01/02/19 01/03/19 01/03/19 23:59 11:59 23:59 Intake Total 650 / 1630 920 / 920 Output Total 850 / 3200 2100 / 2426 326 / 2426 Balance -200 / -1570 -1180 / -1506 -326 / -1506 Weight 110.1 kg Intake: Oral 650 / 1630 920 / 920 Output: Urine 850 / 3200 2100 / 2425 325 / 2425 Stool Other: Urine Color Yellow Yellow Yellow Urine Appearance Clear Clear Clear Urine Odor None None None Comment mixed with stool Stool Occult Blood Negative Negative Stool Size Small Small Stool Characteristics Soft Soft Formed Liquid Green Voiding Methods Bedside Commode Bedside Commode Bedside Commode Data Completed and Pending Completed studies during hospitalization [Text1]: CXR 12/28/18: CHF. Echo 12/29/18: Left Ventricle : The left ventricle is grossly normal size. Mild to moderate concentric left ventricular hypertrophy. The left ventricular systolic function is normal. The left ventricular ejection fraction is within the normal range. There is normal LV segmental wall motion. Flattened septum consistent with right ventricular volume overload. The left ventricular diastolic function is normal. LVEF is 65-70%. without obstruction Right Ventricle : Right ventricle is moderately dilated. Right ventricle is mild to moderately hypokinetic. Right ventricle is mildly hypertrophied. Atria : Left atrium is mildly dilated. Right atrium is mildly dilated. Aortic Valve : The aortic valve is normal in structure, probably trileaflet, mobile. There is no aortic valvular stenosis. No aortic regurgitation is present. Mitral Valve : The mitral valve is normal in structure. Trace mitral to mild regurgitation. Tricuspid Valve : The tricuspid valve is normal in structure. Mild to moderate tricuspid regurgitation. RVSP is estimated to be >60mmHg Great Vessels : Dilated IVC with poor inspiration collapse is consistent with elevated right atrial pressure. Compared to echocardiogram dated 02/2014 RVSP is now significantly elevated Labs on day of discharge: Labs from last 24 hours 01/03/19 01/03/19 06:55 06:55 WBC 7.21 RBC 3.55 L Hgb 8.8 L Hct 30.4 L MCV 85.6 MCH 24.8 L MCHC 28.9 L RDW 18.7 H Plt Count 334 MPV 9.7 Immature Gran % 0.1 Neutrophils % 68.6 Lymphocytes % 15.3 Monocytes % 10.0 Eosinophils % 5.4 Basophils % 0.6 Absolute Neutrophils 4.95 Absolute Lymphocytes 1.10 L Absolute Monocytes 0.72 H Absolute Eosinophils 0.39 Absolute Basophils 0.04 Sodium 140 Potassium 4.3 Chloride 98 Carbon Dioxide 37.7 H Anion Gap 4.3 BUN 53 H Creatinine 1.96 H Estimated GFR/1.73 m2 25.07 Glucose 131 H Calcium 9.1 Magnesium 1.9 [facility] Medical History (Updated 01/03/19 @ 15:04 by Soco Varner MD) Acute on chronic respiratory failure with hypoxia and hypercapnia (Acute) CKD (chronic kidney disease) (Acute) HTN (hypertension) (Chronic) Insulin dependent diabetes mellitus (Chronic) YARELY (obstructive sleep apnea) (Chronic) Pulmonary hypertension (Acute) Spinal stenosis, lumbar (Acute) Surgical History Biopsy, Temporal Artery (01/18/15) DR.C YOUNG [facility] (08/14/16) Family History Mother Heart disease Father Heart disease Lung cancer Brother Heart disease Social History Smoking/Tobacco Use Status: Never Alcohol Intake: never Drug use: Never Do you feel safe in your relationship?: Yes
--- NOTE | 2019-01-03 15:04 | CMDISCH_ITS ---
- If Service Date Differs Date of service: 01/03/19 Time of Service: 15:04 LACE Index Scoring Tool - Questions: Length of Stay (in days): 4 - 6 Acuity (Admit via E.D.?): Yes Comorbidities: Diabetes w/o Complication, Congestive Heart Failure, Mild Liver/Renal Disease E.D. Visits: 2 - Answers: Total Score: 14 Risk of Readmission: High Risk Care Management Discharge Reason for Hospitalization: CHF Discharge Plan: Jane is being discharged home [facility] home health services new. CM contacted home health services to place the referral and notified of discharge. [facility]. Jane is ready to return home she will plug the concentrator in the living room and be provided enough tubing to reach across the trailer. RT is aware and will coordinate. Her son will provide transport home via private car. Patient/Family Education Needs: Discharge education, limitations and follow up plan of care including ask me three and self management. Services Needed at Discharge: DME Agency, Home Health Care Services, Occupational Therapy, Oxygen Therapy, Physical Therapy
--- NOTE | 2019-01-03 15:10 | PDOC.HHF2F_ITS ---
Home Health Certification Home Health Certification: 1. Encounter Date and Reason I certify that JOANN MICHAUD was seen by Soco Varner on 01/03/19 and that I had a [id number] encounter with this patient that meets the physician face to face encounter requirements. 2. Clinical Findings Supporting Skilled Need and Homebound Status I certify that home health services are medically necessary, include either intermittent snf and/or physical/speech therapy, and that this michaela ent is homebound in that absences from the home require considerable and taxing effort and are infrequent or of short duration, or are attributable to the need to receive medical care. [X] (a) Attached documentation from encounter provides clinical findings supporting skilled need and homebound status (including what assistance patient requires to leave the home). The encounter with the patient was in whole, or in part, for the following medical condition, which is the primary reason for home health care: CONGESTIVE HEART FAILURE Chcf: CHF, pulmonary hypertension, acute on chronic hypoxic hypercapnic respiratory failure. Evaluate for [facility] program. Labs in 1 week (CBC, BMP) - results to Dr Armstrong. Physical Therapy: eval and treat Occupational Therapy : eval and treat EMPLOYMENT PROGRAMS ANALYST: assess for needs in the community Homebound: umable to leave home without assistance. 3. Certification and Authentication I certify that I composed the above information based on my clinical judgement relating to this patient's medical condition and, if applicable, clinical findings communicated to me by the NPP or inpatient physician who performed the Home Health Referral. All further orders will be obtained through _Dr Armstrong (C ommunity Based Physician - PCP)
--- NOTE | 2019-01-05 18:00 | INDS_ITS ---
Date of service: 01/05/19 PT Notes Dates: 01/05/2019 Dates of Service: 01/03/2019 only Referring Doctor: Soco Varner MD PT Orders: PT CONSULT: Limited Ability Precautions: Fall. Standard. Activity as tolerated Patient Profile/Admitting Diagnosis: Patient is a 73-year-old female who presented to the ED on 12/28/2018 via EMS with chief complaints of malaise, cough, and progressive shortness of breath. Patient is diagnosed with congestive heart failure. PMHX: Medical History HTN (hypertension) (Chronic) Insulin dependent diabetes mellitus (Chronic) YARELY (obstructive sleep apnea) (Chronic) Spinal stenosis, lumbar (Acute) Surgical History Biopsy, Temporal Artery (01/18/15) DR.C YOUNG Colonoscopy - [facility] (08/14/16) \ Social History/Home Situation: Patient lives with her son in a mobile home in [place], [place]. She has three steps to enter the home. Equipment Owned/DME: [place] Subjective: Patient states she wants to ?get on with it?. She denies feeling out of breath, and is ready to be up and moving. She denies headache, dizziness, lightheadedness and is agreeable to PT evaluation. Objective: General Observation: Patient is seen seated in recliner. She has an IV in her L UE and has a quality assurance monitor body. Oxygen supplementation at 2 L/min via NC. Mental Status: Alert and oriented x 4 Pain: Patient denies pain. Vital Signs: SpO2: 88-94% during ambulation. ROM: Right Lower Extremity: Hip flexion WFL. Hip abduction WFL. Knee flexion WFL. Ankle dorsiflexion WFL. Ankle plantarflexion WFL. Left Lower Extremity: Hip flexion WFL. Hip abduction WFL. Knee flexion WFL. Ankle dorsiflexion WFL. Ankle plantarflexion WFL. Strength: Right Lower Extremity: Hip flexors 4/5. Hip abductors 3/5. Knee flexors 3-/5. Knee extensors 4/5. Ankle dorsiflexors 4/5. Ankle plantarflexors 5/5. Left Lower Extremity:Hip flexors 4/5. Hip abductors 3/5. Knee flexors 3-/5. Knee extensors 4/5. Ankle dorsiflexors 4/5. Ankle plantarflexors 4/5. Bed Mobility/Transfers: Rolling Independent Supine to sit Independent Sit to supine Independent Sit to stand SBA Stand to sit SBA Bed to chair CGA Chair to bed CGA Gait: Patient ambulated 150? with FWW, CGA, and on 3-4L/min with via NC. She exhibited decreased step length, and decreased gait speed. Balance: 77.5 on 2.4 Static Sitting: Normal Dynamic Sitting: Normal Static Standing: Good Dynamic Standing: Fair Special Tests: Mobility Limitations Standardized Measure [facility] AM-PAC 6 clicks Basic Mobility Inpatient Short Form: Raw Score: 18 CMS Score: 47% 2-minute walk test: 87 steps in two minutes (normative data for community- dwelling adults above 65 years of age is 177 steps) signifying impaired aerobic capacity and impaired mobility placing client at a fall risk. Informed Consent/Education: Patient instructed in purpose of PT consult and plan of care. Assessment: Patient is a 73-year-old female who presented to the ED on 12/28/2018 via EMS with chief complaints of malaise, cough, and progressive shortness of breath. She has the support of her son at home, and she reported that she felt confident in her abilities to get around in her house. She is deconditioned, and the results of her 2-minute walk test classify having impaired aerobic capacity as well as being a fall-risk. She is also lacking strength in her extremities bilaterally. Patient continues to present with clinical signs and symptoms consistent with current/admitting diagnoses that have resulted to mobility limitations, gait instability, generalized weakness, and impairment of motor control as demonstrated by the following impairment level findings: 1. Decreased strength to B LE major muscle groups 2. Impaired sitting/standing balance 3. Impaired activity tolerance Impairments are contributing to the following functional limitations: 1. Dependent bed mobility skills 2. Increased dependence with transfers 3. Inability to safely ambulate without assistive device and physical assistance 4. Increase completion time for mobility ADL performance 5. Increased fall risk 6. Inability to negotiate steps alone safely Patient is assessed as a [id number] moderate complexity based on the following: History: Patient is a 73-year-old female who presented to the ED on 12/28/2018 via EMS with chief complaints of malaise, cough, and progressive shortness of breath. Examination: Demonstrable impairment in strength, balance, and range of motion with underlying impairments and functional limitations as documented above Presentation: Evolving Decision Makin moderate complexity Goals: Goals X1 week 1. Bed-Chair independent NOT MET 2. Chair-Bed independent NOT MET 3. Independent gait on level surface with use of least restrictive device for at least 200 feet without report of pain nor dyspnea NOT MET 4. Independent stair negotiation while holding onto bilateral rails for at least 4 steps without report of pain nor dyspnea NOT MET 5. Independent with home exercise program NOT MET 6. Good static and dynamic standing balance/tolerance NOT MET DISCHARGE RECOMMENDATIONS: Patient is to be discharged to home under the care of her son after all of the above goals are met and she is medically stable. Home health PT is recommended. Patient would benefit from a FWW. TREATMENT CODE/TIME: STAN Thank you very much for this referral. Ernestine Nieto PT, DPT, CLT [facility]
== END 2019-01-03 17:00 | disposition home health service (06) | DRG 291 ==
LOC: ER 14:53 → MS 15:56
PROVIDERS: Internal Medicine; Nurse Practitioner; Nurse Practitioner Family; Admitting Provider Internal Medicine; Emergency Provider Emergency Medicine; PCP General Practice; Visit Provider Internal Medicine
DX: I50.33 Acute on chronic diastolic (congestive) heart failure (principal); J96.21 Acute and chronic respiratory failure with hypoxia; J96.22 Acute and chronic respiratory failure with hypercapnia; I13.0 Hypertensive heart and chronic kidney disease with heart failure and stage 1 through stage 4 chronic kidney disease, or unspecified chronic kidney disease; Z68.41 Body mass index [BMI] 40.0-44.9, adult; I50.811 Acute right heart failure; I27.20 Pulmonary hypertension, unspecified; D50.9 Iron deficiency anemia, unspecified; Z88.8 Allergy status to other drugs, medicaments and biological substances; R19.5 Other fecal abnormalities; I07.1 Rheumatic tricuspid insufficiency; G47.33 Obstructive sleep apnea (adult) (pediatric); Z91.19 Patient's noncompliance with other medical treatment and regimen; E11.22 Type 2 diabetes mellitus with diabetic chronic kidney disease; N18.9 Chronic kidney disease, unspecified; E78.5 Hyperlipidemia, unspecified; I48.91 Unspecified atrial fibrillation; E66.01 Morbid (severe) obesity due to excess calories; E53.8 Deficiency of other specified B group vitamins; Z79.82 Long term (current) use of aspirin; Z79.01 Long term (current) use of anticoagulants; Z79.4 Long term (current) use of insulin; Z23 Encounter for immunization
CPT/HCPCS: 36415; 36416; 51702; 80048; 80053; 82805; 82962; 84145; 85027; 87449; 93005; 93306; 94618; 94640; 97162; 99222; 99232; 99233; 99239; 99285; 36600; 71045; 81003; 81015; 82607; 82728; 82746; 83540; 83550; 83735; 83880; 84132; 84484; 85025; 87086; 93010; 99284; J3490; J7620

== ENCOUNTER 2019-01-16 14:06 | Outpatient (REF) | payer MEDICARE, SELFPAY ==
[2019-01-16 14:36] LABS: HCT 31.1 % (36.0-46.0)
[2019-01-16 14:47] LABS: Anion Gap 6.7 mmol/L (3-11); BUN 25 mg/dL (7-18); CO2 32.3 mmol/L (21.0-32.0); CREATININE 1.65 mg/dL (0.55-1.02); Chloride 104 mmol/L (98-107); Estimated GFR 30.58 (mL/min/1.73m2); Potassium 4.2 mmol/L (3.5-5.1); Sodium 143 mmol/L (136-145)
== END 2019-01-16 14:26 ==
LOC: LBN 14:06
PROVIDERS: PCP General Practice; Visit Provider General Practice
DX: N18.9 Chronic kidney disease, unspecified (principal)
CPT/HCPCS: 80051; 84520; 82565; 85014; 85018

== ENCOUNTER 2019-02-13 00:54 | Outpatient (CLI) | payer MEDICARE, SELFPAY ==
--- NOTE | 2019-02-13 14:35 | DI.MAMMO_ITS ---
EXAM: MG MAMMO SCREEN CALL BACK UNI AND US BREAST LT LIMITED CLINICAL HISTORY: F/U MAMMO, UOQ LT BREAST VAGUE DENSITIES TECHNIQUE: Craniocaudal and mediolateral oblique Full Field Digital Mammography views with Computer Aided Diagnosis followed by Breast Tomosynthesis and left breast ultrasound. COMPARISON: No exams were available for comparison FINDINGS: Mammography/Tomosynthesis: Breast Density: Breast Density - Category A - Almost entirely fatty Masses/Architectural Distortion: None seen. The areas of concern on the initial mammogram are no long er visualized. Microcalcifications: No suspicious pleomorphic-type are seen. Skin Thickening/Nipple Retraction: None. Breast Ultrasound: Left breast ultrasound: Echotexture: Normal appearance of the glandular tissue. Shadowing: No suspicious foci. Cyst: None. Solid lesions: None seen. Ductal dilation: None. IMPRESSION: 1. No evidence for malignancy at this time. 2. Unless there is more urgent need, follow-up screening mammography is recommended, as per [place] [employer] guidelines. ACR BI-RAD Category- 1 Negative Breast Density - Category A - Almost entirely fatty A negative radiographic report should not delay biopsy if a dominant or clinically suspicious mass is present. Up to ten percent of cancers are not identified on mammography. A negative report may reinforce clinical impression. Adenosis and dense breasts may obscure an underlying neoplasm. False positive reports average 6 to 10%. Patient will receive a letter notifying them of these results.
[2019-02-13 16:18] LABS: HCT 35.1 % (36.0-46.0); HGB 10.4 g/dL (12.0-15.5); Mean Corp. HGB Concentration 29.6 g/dL (32.0-36.0); Mean Corpuscular Hemoglobin 26.1 pg (27.0-33.0); Mean Corpuscular Volume 88.2 fL (80-95); Mean Platelet Volume 9.3 fL (8.0-11.0); Platelet Count 270 x1000/uL (130-400); RBC 3.98 m/cumm (4.00-5.20); RBC Distribution Width 19.7 % (11.7-14.6); White Blood Cell Count 8.54 k/cumm (4.4-10.8)
[2019-02-13 16:58] LABS: BUN 28 mg/dL (7-18); Calcium 9.2 mg/dL (8.5-10.1); Chloride 105 mmol/L (98-107); Estimated GFR 31.68 (mL/min/1.73m2); Glucose 139 mg/dL (74-106); Potassium 3.9 mmol/L (3.5-5.1); Sodium 145 mmol/L (136-145)
== END 2019-02-13 01:14 ==
PROVIDERS: Internal Medicine; PCP General Practice; Visit Provider General Practice
DX: Z12.31 Encounter for screening mammogram for malignant neoplasm of breast (principal); R92.8 Other abnormal and inconclusive findings on diagnostic imaging of breast; N64.59 Other signs and symptoms in breast; K92.2 Gastrointestinal hemorrhage, unspecified; D64.9 Anemia, unspecified
CPT/HCPCS: 36415; 76642; 77063; 77067; 80048; 85027; 85014; 85018

== ENCOUNTER 2019-05-09 09:03 | Outpatient (CLI) | payer MEDICARE, SELFPAY ==
[2019-05-09 09:38] LABS: Abs Immature Grans 0.02 k/cumm (0.0-0.09); Absolute Basophil Count 0.03 k/cumm (0.0-0.2); Absolute Eosinophil Count 0.27 k/cumm (0.0-0.7); Absolute Lymphocyte Count 1.78 k/cumm (1.2-3.4); Absolute Monocyte Count 0.58 k/cumm (0.11-0.7); Absolute Neutrophil Count 5.79 k/cumm (1.2-6.7); Basophils % 0.4; Eosinophils % 3.2; HCT 39.6 % (36.0-46.0); Immature Grans % 0.2 %; Mean Corp. HGB Concentration 30.3 g/dL (32.0-36.0); Mean Corpuscular Hemoglobin 28.8 pg (27.0-33.0); Mean Platelet Volume 9.4 fL (8.0-11.0); Monocytes % 6.8; Neutrophils % 68.4; Platelet Count 274 x1000/uL (130-400); RBC 4.17 m/cumm (4.00-5.20); RBC Distribution Width 15.7 % (11.7-14.6); White Blood Cell Count 8.47 k/cumm (4.4-10.8)
[2019-05-09 09:49] LABS: Hemoglobin A1C 7.4 % (3.8-5.6)
[2019-05-09 11:03] LABS: ALT 12 U/L (14-59); AST 11 U/L (15-37); Albumin 3.4 g/dL (3.4-5.0); Alkaline Phosphatase 93 U/L (46-116); BUN 26 mg/dL (7-18); Bilirubin, Total 0.4 mg/dL (0.2-1.0); CREATININE 1.42 mg/dL (0.55-1.02); Calcium 9.3 mg/dL (8.5-10.1); Calculated LDL 84 mg/dL (<100); Chloride 105 mmol/L (98-107); Cholesterol 158 mg/dL (<200); Estimated GFR 36.36 (mL/min/1.73m2); Ferritin 45 ng/mL (8-252); Folate > 20.0 ng/mL (8.6-20.0); Glucose 111 mg/dL (74-106); HDL Cholesterol 54 mg/dL (40-60); Potassium 4.3 mmol/L (3.5-5.1); Sodium 146 mmol/L (136-145); Triglyceride 103 mg/dL (<150); Vitamin B12 274 pg/mL (193-986)
[2019-05-09 11:29] LABS: COMMENT (LAB VIEW ONLY) 103.08 mg/dL; Microalb ug/mg Crea 782.5 ug/mg Cr
== END 2019-05-09 09:23 ==
PROVIDERS: PCP Nurse Practitioner Adult Health; Visit Provider Nurse Practitioner Adult Health
DX: D64.9 Anemia, unspecified (principal); E11.9 Type 2 diabetes mellitus without complications; E61.1 Iron deficiency; E78.5 Hyperlipidemia, unspecified; G47.33 Obstructive sleep apnea (adult) (pediatric); I10 Essential (primary) hypertension; I27.20 Pulmonary hypertension, unspecified; N18.9 Chronic kidney disease, unspecified
CPT/HCPCS: 36415; 80053; 80061; 82043; 82570; 82607; 82728; 82746; 83036; 85025

== ENCOUNTER 2019-07-28 09:33 | Outpatient (CLI) | payer MEDICARE, SELFPAY ==
--- NOTE | 2019-07-28 09:00 | DI.RAD_ITS ---
EXAM: XR FOOT LT COMPLETE CLINICAL HISTORY: New onset L foot pain, worst in arch,M79.672 TECHNIQUE: COMPARISON: No exams were available for comparison FINDINGS: Three views were obtained. There is large osseous body projected at the Achilles insertion on the ca lcaneus with marked associated calcaneal deformity. Correlation requested regarding any prior surger y. Large osteophyte is also noted at the plantar fascia attachment the calcaneus. There are mild degenerative changes of the joints of the midfoot as well as the IP joints. No other significant bony abnormality seen. IMPRESSION:
== END 2019-07-28 09:53 ==
PROVIDERS: PCP Nurse Practitioner Adult Health; Visit Provider Family Medicine
DX: M79.672 Pain in left foot (principal); M19.072 Primary osteoarthritis, left ankle and foot; M25.774 Osteophyte, right foot
CPT/HCPCS: 73630

== ENCOUNTER → 2019-08-01 15:21 | Outpatient (BNVA) | payer MEDICARE, SELFPAY | PROVIDERS: PCP Nurse Practitioner Adult Health; Referring Provider Nurse Practitioner Adult Health; Visit Provider Internal Medicine Cardiovascular Disease | DX: I27.20 Pulmonary hypertension, unspecified (principal); G47.33 Obstructive sleep apnea (adult) (pediatric); I50.9 Heart failure, unspecified; I48.91 Unspecified atrial fibrillation; E66.01 Morbid (severe) obesity due to excess calories; N18.3 Chronic kidney disease, stage 3 (moderate); I13.0 Hypertensive heart and chronic kidney disease with heart failure and stage 1 through stage 4 chronic kidney disease, or unspecified chronic kidney disease | CPT/HCPCS: 99204; 99443 ==

== ENCOUNTER 2019-08-08 01:07 | Outpatient (CLI) | payer MEDICARE, SELFPAY ==
--- NOTE | 2019-08-08 08:45 | DI.RAD_ITS ---
EXAM: XR CHEST 2V PA LATERAL CLINICAL HISTORY: pulmonary hypertension, a fib, heart failure, i50.9,i27.20 TECHNIQUE: 2D digital imaging was performed. COMPARISON: CR RIGHT RIBS TO INCLUDE CXR from 07/29/2017 CR XR PORTABLE CHEST AP from 12/28/2018 FINDINGS: The heart size is within normal limits. The exam is somewhat limited by patient body habitus. The lungs are not well inflated on the lateral view. No infiltrate, effusion or pulmonary edema is seen . IMPRESSION: Limited exam. No acute abnormality.
--- NOTE | 2019-08-08 08:58 | DI.NM_ITS ---
EXAM: NM LUNG SCAN VENT PERF AEROS CLINICAL HISTORY: Pulmonary hypertension,i27.20,a fib, heart failure, i50.9. TECHNIQUE: Injected Dose: Ventilation: 33 mCi Tc-99m DTPA via inhalation Perfusion: 4.5 mCi Tc-99m MAA via IV COMPARISON: CR XR CHEST 2V PA LATERAL from 08/08/2019 FINDINGS: Chest X-Ray: Clear lungs. Perfusion: Normal. Ventilation:Normal Mild clumping of the radiopharmaceutical near the jose. Otherwise normal. IMPRESSION: 1. Low probability VQ examination. . . . Modified PIOPED II criteria Probability Criteria High Two or more segments of V/Q mismatch Low Normal Perfusion, Non segmental perfusion abnormalitie s, pleural effusion in at least 1/3 of pleural cavity with no other defect Radiograph/perfusion matched defect in mid to upper lung confined to segment, one to three small segmental perfusion defects (<25% of segment) Perfusion defect smaller than corresponding radiogra phic lesion. Intermediate All other findings DATA REPOSITORY:
== END 2019-08-08 01:27 ==
PROVIDERS: PCP Nurse Practitioner Adult Health; Visit Provider Internal Medicine Cardiovascular Disease
DX: I50.9 Heart failure, unspecified (principal); I27.20 Pulmonary hypertension, unspecified; I48.91 Unspecified atrial fibrillation
CPT/HCPCS: 71046; 78582

== ENCOUNTER 2019-08-22 11:40 | Emergency (ER) | payer MEDICARE, SELFPAY ==
[2019-08-22 11:41] VITALS: BP 168/66; PULSE 63; RESP 17; TEMP 36.7; O2SAT 99
--- NOTE | 2019-08-22 11:57 | ED.GENADUL_ITS ---
Discharge Plan Disposition Patient Disposition: HOME Condition: Improving Discharge Details Chief Complaint: Orthopedic Clinical Impression: Right sided sciatica Primary Care Provider: Laverne Sung ED Provider: Audi Sam Home Meds and New Rx's Prescriptions: New prednisone 20 mg tablet 40 mg PO DAILY 5 Days Qty: 10 RF: 0 tramadol 50 mg tablet 50 mg PO BID PRN (Reason: pain) Qty: 9 RF: 0 Continued (DME) blood sugar diagnostic Strip See Rx Instructions .ROUTE .MEDSUPPLY Qty: 300 RF: 3 insulin aspart U-100 [Novolog Flexpen U-100 Insulin] 100 unit/mL (3 mL) insulin pen 4 unit subcut AC Qty: 50 RF: 6 (DME) lancets [OneTouch Delica Lancets] 33 gauge misc See Rx Instructions .ROUTE .MEDSUPPLY Qty: 300 RF: 3 (DME) Oxygen Tank See Rx Instructions .ROUTE .MEDSUPPLY Qty: 1 RF: 0 fluticasone propionate 50 mcg/actuation spray,suspension 1 spray NS DAILY PRN (Reason: allergy symptoms) Qty: 15.8 RF: 0 cyclobenzaprine 5 mg tablet 5 mg PO BID PRN (Reason: muscle spasm) Qty: 20 RF: 0 bumetanide 0.5 mg tablet 0.5 mg PO .daily in AM Qty: 90 RF: 3 atorvastatin 80 mg tablet 80 mg PO DAILY RF: 0 sucralfate 1 gram tablet 1 g PO QID RF: 0 amlodipine 5 mg tablet 5 mg PO DAILY RF: 0 Levemir FlexTouch U-100 Insuln 100 unit/mL (3 mL) insulin pen 38 unit subcut .QHS RF: 0 docusate sodium [Colace] 100 mg Capsule 100 mg PO TID PRN PRNQty: 0 RF: 0 Calcium 600 with Vitamin D3 600 mg(1,500mg) -400 unit Tablet,Chewable 1 tab PO BID RF: 0 folic acid 1 mg Tablet 1 mg PO DAILY Qty: 30 RF: 0 pantoprazole [Protonix] 40 mg tablet,delayed release (DR/EC) 40 mg PO DAILY Qty: 30 RF: 0 ascorbic acid (vitamin C) [Vitamin C] 250 mg tablet 250 mg PO BID Qty: 60 RF: 0 ipratropium-albuterol 0.5 mg-3 mg(2.5 mg base)/3 mL solution for nebulization 3 ml IH Q6H PRN (Reason: shortness of breath/wheezing) Qty: 180 RF: 0 Discharge Instructions Instructions: Sciatica (ED) Additional Instructions: Please take medications as prescribed. You may use Tylenol as needed for pain, with tramadol, as prescribed as needed for breakthrough pain. Take the prednisone as prescribed Please follow-up with regular doctor if not improving in 5 to 7 days time. Do not take your prescribed cyclobenzaprine at the same time as you take the tramadol as they may cause sedation when used in combination. Return to the emergency department for development of the fever, worsening pain, or any other acute concerns. Medical Decision Making 73-year-old female presents from home via EMS. She has day 2 of atraumatic right hip pain that radiates from her buttock down to her groin. Her vital signs are reassuring. It seems most consistent with acute sciatica. Patient IV access established and screening laboratories obtained. She is given parenteral analgesia and steroids. She is referred for CT imaging of the lumbar spine and pelvis. CT does reveal severe multilevel degenerative changes in the lumbar spine resulting in neural foraminal and central spinal canal stenosis. The findings are most marked at L3-L4. Patient was also given tramadol, subsequent able to rest with a nap. [facility] General Mode of arrival: EMS . Date/Time Provider Initiated Documentation: 08/22/19 11:58 . Limitations to Documentation: no limitations . Information obtained by: patient and EMS . History of Present Illness 73 year old F presents to the emergency department with the chief complaint of Right hip pain, atraumatic, described as moderate, Quality is described as dull, and is localized to the right and lower extremity. Patient distal. Patient started experiencing this day(s) and it has been intermittent. Rest improves symptom(s), Movement worsens symptoms . Patient notes no other symptoms.. Patient did receive the following treatments prior to arrival, none Related Data Home Medications Medication Instructions Recorded Confirmed docusate sodium [Colace] 100 mg PO TID PRN PRN #0 cap 02/24/18 08/22/19 Calcium 600 with Vitamin D3 1 tab PO BID 12/28/18 08/22/19 ascorbic acid (vitamin C) [Vitamin 250 mg PO BID #60 tab 01/03/19 08/22/19 C] folic acid 1 mg PO DAILY #30 tab 01/03/19 08/22/19 pantoprazole [Protonix] 40 mg PO DAILY #30 tab 01/03/19 08/22/19 ipratropium-albuterol 3 ml IH Q6H PRN #180 ml 01/05/19 08/22/19 Oxygen #1 each 04/17/19 08/01/19 blood sugar diagnostic #300 each 04/17/19 08/01/19 insulin aspart U-100 100 unit/mL 4 unit SUBCUT AC #50 ml 04/17/19 08/01/19 (3 mL) subcutaneous pen lancets 33 gauge #300 each 04/17/19 08/01/19 fluticasone propionate 50 1 spray NS DAILY PRN #15.8 ml 05/15/19 08/22/19 mcg/actuation nasal spray,suspension bumetanide 0.5 mg tablet 0.5 mg PO .daily in AM #90 tab 07/12/19 08/22/19 cyclobenzaprine 5 mg tablet 5 mg PO BID PRN #20 tab 08/21/19 08/22/19 Levemir FlexTouch U-100 Insuln 38 unit SUBCUT .QHS 08/22/19 amlodipine 5 mg PO DAILY 08/22/19 08/22/19 atorvastatin 80 mg PO DAILY 08/22/19 08/22/19 prednisone 40 mg PO DAILY 5 Days #10 tab 08/22/19 sucralfate 1 g PO QID 08/22/19 08/22/19 tramadol 50 mg PO BID PRN #9 tab 08/22/19 Previous Rx's Medication Instructions Recorded docusate sodium [Colace] 100 mg PO TID PRN PRN #0 cap 02/24/18 ascorbic acid (vitamin C) [Vitamin 250 mg PO BID #60 tab 01/03/19 C] folic acid 1 mg PO DAILY #30 tab 01/03/19 pantoprazole [Protonix] 40 mg PO DAILY #30 tab 01/03/19 ipratropium-albuterol 3 ml IH Q6H PRN #180 ml 01/05/19 Oxygen #1 each 04/17/19 blood sugar diagnostic #300 each 04/17/19 insulin aspart U-100 100 unit/mL 4 unit SUBCUT AC #50 ml 04/17/19 (3 mL) subcutaneous pen lancets 33 gauge #300 each 04/17/19 fluticasone propionate 50 1 spray NS DAILY PRN #15.8 ml 05/15/19 mcg/actuation nasal spray,suspension bumetanide 0.5 mg tablet 0.5 mg PO .daily in AM #90 tab 07/12/19 cyclobenzaprine 5 mg tablet 5 mg PO BID PRN #20 tab 08/21/19 prednisone 40 mg PO DAILY 5 Days #10 tab 08/22/19 tramadol 50 mg PO BID PRN #9 tab 08/22/19 Allergies Allergy/AdvReac Type Severity Reaction Status Date / Time codeine Allergy Severe Swelling/Ed Verified 08/22/19 11:52 warner furosemide [From Lasix] Allergy Severe Swelling/Ed Verified 08/22/19 11:52 warner morphine Allergy Severe Swelling/Ed Verified 08/22/19 11:52 warner peanut Allergy Severe Verified 08/22/19 11:52 tree nut Allergy Severe Verified 08/22/19 11:52 acetaminophen [From Percocet] Allergy Intermediate ITCHY Verified 08/22/19 11:52 adhesive tape Allergy Intermediate Skin Rash Verified 08/22/19 11:52 oxycodone HCl [From Percocet] Allergy Intermediate ITCHY Verified 08/22/19 11:52 apricot Allergy Unknown Uncoded 08/22/19 11:52 General Stated Complaint: Orthopedic GERALDINE: 4 Review of Systems Narrative: 6 systems reviewed, otherwise negative, denies fall or injury [facility] Medical History Adult body mass index 50.0-59.9 (Inactive) Anemia (Chronic) Arch pain of left foot (Acute) Atrial fibrillation (Chronic) [facility] [place]/26/[place] (scanned) Carpal tunnel syndrome, bilateral (Inactive 12/17/16) CHF (congestive heart failure) (Chronic 02/23/14) Chronic low back pain (Acute 07/24/15) CKD (chronic kidney disease) (Chronic) Current use of insulin (Chronic) Dependence on supplemental oxygen (Chronic) YARELY + Pum HTN Edentulous (Chronic) Female hirsutism (Acute) Folate deficiency (Acute) Full code status (Acute) h/o elbow fx (Inactive) H/O fracture of nose (Inactive) H/O rotator cuff tear (Inactive) Heme + stool (Acute) [facility] [place] GI Endoscopy Peptic Duodenitis (pathology report) HTN (hypertension) (Chronic) Hyperlipidemia (Chronic) Hypertension (Chronic) Insulin dependent diabetes mellitus (Chronic) Iron deficiency (Acute) EGD 05/23/19 at [facility] [place] Lipoma of arm (Inactive) Low vitamin B12 level (Acute) Low-normal ~230 Morbid obesity (Chronic) Obstructive sleep apnea (Chronic 02/23/14) Sleep Med Referral, 04/17/2019-->Very severe YARELY; CPAP ([facility]) with continuous O2 YARELY (obstructive sleep apnea) (Chronic) Palliative care status (Chronic) Peptic ulcer of duodenum (Chronic) [facility] [place] Path reports upper endoscopy; RX Carafate Pulmonary hypertension (Chronic) Spinal stenosis, lumbar (Acute) Type II diabetes mellitus (Chronic) Surgical History Biopsy, Temporal Artery (01/18/15) DR.C YOUNG Colonoscopy [place] [facility] [place] History of carpal tunnel repair (Chronic) Left- 1998 Right- 2017 History of shoulder surgery (Chronic) Right shoulder repair - 2004 History of total abdominal hysterectomy and bilateral salpingo-oophorectomy (Acute ~02/1999) History of total bilateral knee replacement (Inactive) Family History Mother Heart disease Father Heart disease Lung cancer Brother Heart disease AAA (abdominal aortic aneurysm, ruptured) Brother Obesity Son No problems noted. Daughter Stillborn, abnormal Daughter No problems noted. Social History Smoking/Tobacco Use Status: Never Second Hand Exposure: Yes Alcohol Intake: former Details: never drank heavily but her husbands did Drug use: Never Substance use type: does not use Adopted: No Caregiver/Support person: Yes Foster care: No Household members: children Housing: house Number of Children: 2 number of grandchildren: 8 Communication Needs: Corrective Lenses Education Level: middle school Do you need help understanding health information?: Always current occupation: Retired- [employer] Pets and animals: Yes Pets and animals: cat(s) Sexually active: No Do you think of yourself as: straight/heterosexual Current gender identity: female What is your relationship status?: How often do you talk on the phone with friends or family?: once per week How often do you get together with friends or relatives?: once per week Panel score (0-1 are the most socially isolated patients): 0 What type of physical activity do you participate in: none and sedentary lifestyle Special jakob needs: No Agree to transfusion: Yes Seatbelt use: always In current or past relationships, have you been: made to feel afraid Do you feel safe at home: Yes Do you feel safe in your relationship?: Yes Additional Social history: Lives with son Abdias in house trailer. He works. He never left home. She is on home oxygen. Spends most of her day watching TV, sitting on couch. Has a cat. Never smoked. Has been 3 times. 2 husbands have , from one. Daughter lives in [place] with her 8 kids. Exam Narrative Exam Narrative: GEN: awake, alert, oriented 3. Pleasant, well groomed, interactive. HEAD: Normocephalic, atraumatic ENT: Mucous membranes moist, External ear exam unremarkable EYES: PERRL, EOMI NECK: Full ROM, no CAROL, no menigismus CHEST/RESP: Nontender, clear to auscultation bilateral, no wheeze/rhonchi/rales CARDIOVASCULAR: RRR, no murmur, rub blayne. 2+ Rad pulse bilateral ABDOMEN: Soft, nontender, no mass. +Bowel sounds EXT: Range of motion intact but limited by pain. Sensation intact throughout. The right sciatic notch is tender to palpation. Neuro: Grossly normal neurologic exam, conversant, interactive. Psych: Speech fluent, thoughts congruent, affect normal Course Vital Signs Vital signs: Vital Signs Temperature 36.7 C 08/22/19 11:41 Pulse 63 08/22/19 11:41 Respiratory Rate 17 08/22/19 11:41 Blood Pressure 168/66 H 08/22/19 11:41 Pulse Oximetry 99 08/22/19 11:41 Temperature 36.7 C 08/22/19 11:41 Temperature Source Temporal Artery Scan 08/22/19 11:41 Pulse 63 08/22/19 11:41 Respiratory Rate 17 08/22/19 11:41 Respiratory Effort 08/22/19 11:48 Blood Pressure 168/66 H 08/22/19 11:41 Blood Pressure Position Supine 08/22/19 11:41 Pulse Oximetry 99 08/22/19 11:41 Oxygen Delivery Method Room Air 08/22/19 11:41 Oxygen Flow Rate 0 08/22/19 11:41 Pain Level 10 08/22/19 11:41
[2019-08-22] MEDS: Acetaminophen 500 MG TAB 1000 MG PO (12:12)
[2019-08-22] MEDS: Ketorolac 15 MG/ML VIAL IVP (12:13)
[2019-08-22] MEDS: methylPREDNISolone SUCC 125 MG VIAL IVP (12:13)
[2019-08-22 12:19] LABS: Abs Immature Grans 0.01 k/cumm (0.0-0.09); Absolute Basophil Count 0.02 k/cumm (0.0-0.2); Absolute Eosinophil Count 0.26 k/cumm (0.0-0.7); Absolute Lymphocyte Count 1.34 k/cumm (1.2-3.4); Absolute Monocyte Count 0.59 k/cumm (0.11-0.7); Absolute Neutrophil Count 5.61 k/cumm (1.2-6.7); Basophils % 0.3; Eosinophils % 3.3; HCT 40.1 % (36.0-46.0); HGB 12.3 g/dL (12.0-15.5); Immature Grans % 0.1 %; Lymphocytes % 17.1; Mean Corp. HGB Concentration 30.7 g/dL (32.0-36.0); Mean Corpuscular Hemoglobin 30.3 pg (27.0-33.0); Mean Corpuscular Volume 98.8 fL (80-95); Mean Platelet Volume 9.9 fL (8.0-11.0); Monocytes % 7.5; Neutrophils % 71.7; Platelet Count 233 x1000/uL (130-400); RBC 4.06 m/cumm (4.00-5.20); RBC Distribution Width 14.1 % (11.7-14.6); White Blood Cell Count 7.83 k/cumm (4.4-10.8)
[2019-08-22 12:31] LABS: ALT 10 U/L (14-59); AST 17 U/L (15-37); Albumin 3.1 g/dL (3.4-5.0); Alkaline Phosphatase 86 U/L (46-116); Anion Gap 4.6 mmol/L (3-11); BUN 36 mg/dL (7-18); Bilirubin, Total 0.4 mg/dL (0.2-1.0); C-Reactive Protein 0.93 mg/dL (0.0-0.3); CO2 34.4 mmol/L (21.0-32.0); Chloride 103 mmol/L (98-107); Estimated GFR 31.68 (mL/min/1.73m2); Glucose 148 mg/dL (74-106); Potassium 4.4 mmol/L (3.5-5.1); Sodium 142 mmol/L (136-145); Total Protein 7.2 g/dL (6.4-8.2)
--- NOTE | 2019-08-22 12:46 | DI.CT_ITS ---
EXAM: CT LUMBAR SPINE SI JOINTS WO CLINICAL HISTORY: R hip pain radiating to leg. TECHNIQUE: Imaging Protocol: Axial computed tomography images with coronal and sagittal reformatted images were created and reviewed COMPARISON: CT CT lumbar spine wo from 02/21/2018 FINDINGS: There are 5 lumbar type vertebral bodies. No spondylolysis or spondylolisthesis is present. At L5-S1 no focal disc herniation or central spinal canal stenosis. There are hypertrophic changes o f the facets. This results in mild bilateral neural foraminal stenosis. At L4-L5, there is a mild diffuse disc bulge resulting in mild narrowing of the central spinal canal. Facet arthropathy is present resulting in mild to moderate bilateral neural foraminal stenosis. At L3-L4, there is prominence of the osteophyte disc complex. There are hypertrophic changes of the facets. These all contribute to cause severe central spinal canal stenosis and moderately severe kira ateral neural foraminal stenosis. At L2-L3, there is no significant central spinal canal stenosis. No significant neural foraminal nancy nosis is present. Endplate osteophytes are present. At L1-L2 there is a vacuum disc and disc space narrowing endplate osteophytes are present. The findi ngs contribute to cause moderately severe central spinal canal stenosis and moderately severe bilater al neural foraminal stenosis. No acute fracture or subluxation is present. Note is made of bilateral nonobstructing renal calculi. IMPRESSION: 1. Severe multilevel degenerative changes in the lumbar spine resulting in neural foraminal and centr al spinal canal stenosis. The findings are most marked at L3-L4. 2. Nonobstructing renal calculi. 3. The findings were discussed with the emergency department on the date of the examination. RADIATION DOSE DELIVERED: 1,063.07mGy.cm Total DLP 1,063.07mGy.cm Total DLP 1,063.07mGy.cm Total DLP DATA REPOSITORY: All CT scans at this facility are submitted to the National Radiology Data Registry (NRDR) Dose Index Registry (DIR) with the [employer] (ACR). RADIATION OPTIMIZATION: All CT scans at this facility use at least one of these dose optimization te chniques: automated exposure control; mA and/or kV adjustment per patient size (includes targeted exa ms where dose is matched to clinical indication); or iterative reconstruction.
[2019-08-22] MEDS: traMADol 50 MG TAB 100 MG PO (13:17)
== END 2019-08-22 14:41 | disposition home or self-care (01) ==
PROVIDERS: Emergency Provider Emergency Medicine; PCP Nurse Practitioner Adult Health
DX: M54.31 Sciatica, right side (principal); M48.061 Spinal stenosis, lumbar region without neurogenic claudication; E11.22 Type 2 diabetes mellitus with diabetic chronic kidney disease; Z79.4 Long term (current) use of insulin; I12.9 Hypertensive chronic kidney disease with stage 1 through stage 4 chronic kidney disease, or unspecified chronic kidney disease; N18.9 Chronic kidney disease, unspecified
CPT/HCPCS: 36415; 80053; 96374; 96375; 99284; 72131; 85025; 86140; J1885; J2930

== ENCOUNTER 2019-12-28 02:48 | Outpatient (CLI) | payer MEDICARE, SELFPAY ==
[2019-12-28 11:58] LABS: HCT 41.3 % (36.0-46.0); HGB 12.5 g/dL (11.2-15.7); MCH 30.6 pg (27.0-33.0); MCHC 30.3 % (32.0-36.0); MPV 9.4 fL (8.0-11.0); Platelet Count 212 10^3/uL (130-400); RBC 4.09 10^6/uL (3.93-5.22); RDW 13.9 % (11.7-14.6); RDW-SD 51.7 fL; WBC 9.24 10^3/uL (4.4-10.8)
[2019-12-28 12:10] LABS: Hemoglobin A1C 7.3 % (<5.7)
[2019-12-28 13:11] LABS: COMMENT (LAB VIEW ONLY) 15.67 mg/dL
[2019-12-28 13:13] LABS: Microalb ug/mg Crea 1666.9 ug/mg Cr
[2019-12-28 13:14] LABS: Anion Gap 3.4 mmol/L (3-11); BUN 27 mg/dL (7-18); CO2 39.6 mmol/L (21.0-32.0); CREATININE 1.64 mg/dL (0.55-1.02); Calcium 9.3 mg/dL (8.5-10.1); Chloride 101 mmol/L (98-107); Estimated GFR 30.71 (mL/min/1.73m2); Glucose 173 mg/dL (74-106); NT-proBNP 261 pg/mL (<300); Potassium 4.1 mmol/L (3.5-5.1); Sodium 144 mmol/L (136-145)
== END 2019-12-28 03:08 ==
PROVIDERS: PCP Nurse Practitioner Adult Health; Visit Provider Nurse Practitioner Adult Health
DX: D50.9 Iron deficiency anemia, unspecified (principal); I10 Essential (primary) hypertension; N18.30 Chronic kidney disease, stage 3 unspecified; E61.1 Iron deficiency; I50.9 Heart failure, unspecified; Z79.4 Long term (current) use of insulin; Z79.01 Long term (current) use of anticoagulants; E11.9 Type 2 diabetes mellitus without complications
CPT/HCPCS: 36415; 80048; 85027; 82043; 82570; 83036; 83880

== ENCOUNTER 2020-02-16 01:50 | Outpatient (CLI) | payer MEDICARE, SELFPAY ==
[2020-02-19 10:23] LABS: COVID-19 RT-PCR Result NEGATIVE (Negative)
== END 2020-02-16 02:10 ==
PROVIDERS: PCP Nurse Practitioner Adult Health; Visit Provider Nurse Practitioner
DX: Z11.59 Encounter for screening for other viral diseases (principal); Z01.818 Encounter for other preprocedural examination
CPT/HCPCS: U0003

== ENCOUNTER → 2020-02-21 13:15 | Outpatient (BNVA) | payer MEDICARE, SELFPAY | PROVIDERS: PCP Nurse Practitioner Adult Health; Referring Provider Nurse Practitioner Adult Health; Visit Provider Internal Medicine Cardiovascular Disease | DX: I48.0 Paroxysmal atrial fibrillation (principal); I50.9 Heart failure, unspecified; I27.20 Pulmonary hypertension, unspecified; G47.33 Obstructive sleep apnea (adult) (pediatric); E11.22 Type 2 diabetes mellitus with diabetic chronic kidney disease; N18.9 Chronic kidney disease, unspecified; I13.0 Hypertensive heart and chronic kidney disease with heart failure and stage 1 through stage 4 chronic kidney disease, or unspecified chronic kidney disease; Z79.4 Long term (current) use of insulin | CPT/HCPCS: 99214 ==

== ENCOUNTER 2020-04-08 15:24 | Outpatient (REF) | payer MEDICARE, SELFPAY ==
[2020-04-08 19:19] LABS: HCT 41.6 % (36.0-46.0); HGB 12.7 g/dL (11.2-15.7); MCH 30.4 pg (27.0-33.0); MCHC 30.5 % (32.0-36.0); MCV 99.5 fL (80-95); MPV 10.8 fL (8.0-11.0); Platelet Count 240 10^3/uL (130-400); RBC 4.18 10^6/uL (3.93-5.22); RDW 14.1 % (11.7-14.6); RDW-SD 52.1 fL; WBC 9.57 10^3/uL (4.4-10.8)
[2020-04-08 19:26] LABS: Anion Gap 3.6 mmol/L (3-11); BUN 33 mg/dL (7-18); CO2 34.4 mmol/L (21.0-32.0); CREATININE 1.84 mg/dL (0.55-1.02); Calcium 9.2 mg/dL (8.5-10.1); Chloride 103 mmol/L (98-107); Estimated GFR 26.89 (mL/min/1.73m2); Glucose 170 mg/dL (74-106); Potassium 4.5 mmol/L (3.5-5.1); Sodium 141 mmol/L (136-145)
== END 2020-04-08 15:44 ==
LOC: LBN 15:24
PROVIDERS: PCP Nurse Practitioner Adult Health; Visit Provider Nurse Practitioner Adult Health
DX: I10 Essential (primary) hypertension (principal); D50.9 Iron deficiency anemia, unspecified; R19.5 Other fecal abnormalities; R71.8 Other abnormality of red blood cells
CPT/HCPCS: 80048; 85027

== ENCOUNTER 2020-08-05 12:18 | Outpatient (REF) | payer MEDICARE, SELFPAY ==
--- OUTSIDE RECORDS SUMMARY | 2020-08-05 12:28 | XMS_ITS ---
:1945 Author Care Team Providers Name Role Phone AMY GRAFF Primary Care Provider [phone] Allergies Code Code Name Reaction Severity Status Onset System 161 RxNorm Acetaminophen ? ? Active ? Adhesive Tape ? ? Active ? 5039622 RxNorm Apricot ? ? Active ? 2670 RxNorm Codeine ? ? Active ? 4603 RxNorm Furosemide ? ? Active ? 7052 RxNorm Morphine ? ? Active ? 7804 RxNorm Oxycodone ? ? Active ? 594382 RxNorm Peanut ? ? Active ? Tree Nut ? ? Active ? 98280 RxNorm Atorvastatin ? ? Deactivated ? 83903 RxNorm Docusate ? ? Deactivated ? Medications Name Status Start Date Stop Date ? ? Allergy Relief (fluticasone) 50 mcg/actuation nasal spray,suspen smitha Active ? Not available Union 1 spray every day by intranasal route. amlodipine 5 mg tablet Active ? Not avail able Take 1 tablet twice a day by oral route. ascorbic acid (vitamin C) 250 mg tablet Active ? Not available Take 1 tablet twice a day by oral route. atorvastatin 80 mg tablet Active ? Not av ailable Take 1 tablet every day by oral route. blood sugar diagnostic kit Active ? Not a vailable bumetanide 1 mg tablet Active ? Not avail able Take 1 tablet every day by oral route. Colace 100 mg capsule Active ? Not availa ble Take 1 capsule every day by oral route. ferrous sulfate 325 mg (65 mg iron) tablet Active ? Not available Take 1 tablet every day by oral route. folic acid 1 mg tablet Active ? Not avail able Take 1 tablet every day by oral route. insulin aspar prot-insulin aspart 100 unit/mL (70-30) subcutaneo us pen Active ? Not available Inject by subcutaneous route. insulin detemir (U-100) 100 unit/mL (3 mL) subcutaneous pen Acti ve ? Not available Inject by subcutaneous route. ipratropium 0.5 mg-albuterol 2.5 mg/2.5 mL solution for nebuliza tion Active ? Not available Inhale by inhalation route. lancets Active ? Not available oxygen Active ? Not available pantoprazole 40 mg tablet,delayed release Active ? Not available Take 1 tablet every day by oral route. polyethylene glycol 3350 17 gram oral powder packet Active ? Not available Take 1 packet every day by oral route. sucralfate 1 gram tablet Active ? Not katheryn ilable Take 1 tablet 4 times a day by oral route. zolpidem 5 mg tablet Completed 08/24/2014 08/25/2014 1 (one) Tablet: hs prn sleep study & repeat in 45-60 min prn Problems Name Status Onset Date Source ? Type 2 Diabetes Mellitus Active 08/08/2019 ? Folic Acid Deficiency Active 08/08/2019 ? Hyperlipidemia Active 08/08/2019 ? Anemia Active 08/08/2019 ? Hypertensive Disorder Active 08/08/2019 ? Atrial Fibrillation Active 08/08/2019 ? Chronic Kidney Disease Active 08/08/2019 ? Severe Obesity Active ? History Extreme Obesity with Alveolar Active ? Hi story Hypoventilation Obstructive Sleep Apnea Syndrome Active ? History Heart Failure Active ? History Sleep Apnea Active ? History Hypoxemia Active ? History Procedures Date Name Performed by ? 03/15/1964 Tonsillectomy Information not avai lable Results Lab Results None recorded. Past Encounters 05/21/2020 Obstructive Sleep Apnea Syndrome Shayla Wray COMMUNICATIONS DESIGNER: [address] [place] [phone], Ph. 12/19/2019 Obstructive Sleep Apnea Syndrome Shayla Wray COMMUNICATIONS DESIGNER: [address] [place] [phone], Ph. 10/10/2019 Obstructive Sleep Apnea Syndrome Shayla Wray COMMUNICATIONS DESIGNER: [address] [place] [phone], Ph. 08/08/2019 Obstructive Sleep Apnea Syndrome Shayla Wray COMMUNICATIONS DESIGNER: [address] [place] [phone], Ph. Social History Tobacco Smoking Status Never Smoker Vaccine List None recorded. Plan of Care Reminders Provider Appointments None ? ? recorded. Lab None ? ? recorded. Referral None ? ? recorded. Procedures None ? ? recorded. Surgeries None ? ? recorded. Imaging None ? ? recorded. Vitals 05/21/2020 02:00PM Office 30 Height Weight BMI Blood Pressure 158.75 cm 116.12 kg 46.1 kg/m2 139/69 mm[Hg] 12/19/2019 12:30PM Office 30 Height Weight BMI Blood Pressure 158.75 cm 119.2 kg 47.3 kg/m2 134/78 mm[Hg] 10/10/2019 12:30PM Office 30 Height Weight BMI Blood Pressure 158.75 cm 112.49 kg 44.6 kg/m2 128/70 mm[Hg] 08/08/2019 12:30PM New Patient 46 Height Weight BMI Blood Pressure 158.75 cm 110.22 kg 43.7 kg/m2 128/70 mm[Hg] 11/15/2014 Height Weight Blood Pressure 158.75 cm 108.15 kg 128/72 mm[Hg] 10/04/2014 Height Weight Blood Pressure 158.75 cm 107.5 kg 126/62 mm[Hg] 08/23/2014 Height Weight Blood Pressure 158.75 cm 111.24 kg 110/52 mm[Hg] 06/14/2014 Height Weight Blood Pressure 158.75 cm 113.91 kg 128/76 mm[Hg]
--- OUTSIDE RECORDS SUMMARY | 2020-08-05 12:29 | XMS_ITS | Encounter Summary ---
:1945 Author Care Team Providers Name Role Phone Laverne Sung Primary Care Provider [phone] Reason for Visit None recorded. Assessment and Plan 1. Obstructive sleep apnea syndr ome Very severe YARELY with an AHI of 136.8/hr and sp02 karlene 75%. She did not have REM sleep during the study which may have led to an underestimation of the severity of her YARELY. She had poor tolera nce to CPAP so was recently changed over to BiPAP at Imax 20 cm, Deangelo 8 cm, PS 4 cm. Her use is at just under four hours a night with a high air leak for the total time and residual AHI of 34/hr reporte d as hypopneas and most likely from the large leak. She had a titration study this month which was very difficult as all BiPAP, BiPAP ST and ASV pressures were ineffective and she had multiple central a pneas, poor mask fit and persistent hypo xemia despite 02 at 3 lpm. Recommendation is to work on mask fit, consider chin strap, start BiPAP 18/14 cm (avoid auto given centrals) with 4 lpm and consider in creasing pressure as tolerated. Also donald id ASV given her weight and lack of known EF. She is using supplemental 02 at 2 lpm with BiPAP. She has been confused about using her BiPAP and has ONLY been usin g it when awake. I explained at length h ow BiPAP works and she needs to be using it when she is sleeping. She finds her Dreamwear full face mask annoying, I recommended she use the Airfit F20 and try the Airtouch cushion (requested from [facility]). She may need to do a new mask fit. I had previously sent an order to [facility] to set BIPAP to 18/14 cm but this was never done. Her 02 was never increased t o 4 lpm either so I asked her to do that today. She has trouble with pressure and leak so I will leave it at current settings for now and look at a compliance once she are able to use it for sleep and a djust as needed. Two month follow-up. jose is asked to call the clinic for any sleep related questions or concerns. I provided greater than 30 minutes in e care of this patient, more than half the time was spent in otub-fy-nans counseling. ? BiPAP supplies Discussion Note: None recorded.Patient educational handouts: No information available. Plan of Care Reminders Provider Appointments Office 30 08/28/2020 Chris Wray, 1:15PM CHEMICAL ENGRAVER Lab None ? ? recorded. Referral None ? ? recorded. Procedures None ? ? recorded. Surgeries None ? ? recorded. Imaging None ? ? recorded. Medications Name Start Date ? ? Allergy Relief (fluticasone) 50 mcg/actuation nasal sp ray,suspension ? Winder 1 spray every day by intranasal route. amlodipine 5 mg tablet ? Take 1 tablet twice a day by oral route. ascorbic acid (vitamin C) 250 mg tablet ? Take 1 tablet twice a day by oral route. atorvastatin 80 mg tablet ? Take 1 tablet every day by oral route. blood sugar diagnostic kit ? bumetanide 1 mg tablet ? Take 1 tablet every day by oral route. Colace 100 mg capsule ? Take 1 capsule every day by oral route. ferrous sulfate 325 mg (65 mg iron) tablet ? Take 1 tablet every day by oral route. folic acid 1 mg tablet ? Take 1 tablet every day by oral route. insulin aspar prot-insulin aspart 100 unit/mL (70-30) subcutaneous pen ? Inject by subcutaneous route. insulin detemir (U-100) 100 unit/mL (3 mL) subcutaneou s pen ? Inject by subcutaneous route. ipratropium 0.5 mg-albuterol 2.5 mg/2.5 mL solution fo r nebulization ? Inhale by inhalation route. lancets ? oxygen ? pantoprazole 40 mg tablet,delayed release ? Take 1 tablet every day by oral route. polyethylene glycol 3350 17 gram oral powder packet ? Take 1 packet every day by oral route. sucralfate 1 gram tablet ? Take 1 tablet 4 times a day by oral route. Medications Administered None recorded. Vitals Height Weight BMI Blood Pressure 5 ft 2.5 in 256 lbs 46.1 kg/m2 139/69 mm[Hg] Results Lab Results None recorded. Allergies Code Code System Name Reaction Severity Onset 161 RxNorm Acetaminophen ? ? ? Adhesive Tape ? ? ? 4438208 RxNorm Apricot ? ? ? 2670 RxNorm Codeine ? ? ? 4603 RxNorm Furosemide ? ? ? 7052 RxNorm Morphine ? ? ? 7804 RxNorm Oxycodone ? ? ? 351820 RxNorm Peanut ? ? ? Tree Nut ? ? ? Problems Name Status Onset Date Source ? [...] ? 03/15/1964 Tonsillectomy Information not avai lable Vaccine List None recorded. Social History Tobacco Smoking Status Never Smoker Are you currently employed? N Alcohol intake None Animal exposure? Y Notes: cat Blind or serious difficulty seeing N Live alone or with others? with others Hard of hearing or deaf in one or both N ears? Caffeine intake Occasional Notes: 2 cups tea in am Functional Status No Impairment. 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 History of Present Illness Note: <p>Jane Walker has a visit for YARELY follow-up and titration results.</p><p>
</p><p>Jane last had a visit with me on 12/19/19. She has a medical history to include heart failure, a-fib, DM, anemia, CKD, HLD, HTN, obesity and YARELY. PSG 07/23/14 (BMI 45.17),AHI 136.8/hr, no REM, sp02 karlene 75%, PLMi 2.2/hr. She never had a titration. For at least a period of time she was using oxygen with CPAP. She went untreated for several years. I ordered a CPAP 12-18 cm for her in July 2019. At her last visit she was not using it. She says when she tried to use it, ittakes my breath away and she felt the pressure was too strong. Last visit I ordered BiPAP 20/8/4 cm and a titration study.</p><p>Titration 02/20/20 (BMI 47.92), sleep efficiency 61%, BiPAPtitrated from 12/8 to 19/15 cm, back up rate 10/minutes was added for emergance of severe central apneas, ASV was also tried, 234 minutes spent <88%, 02 was added and titrated to 3 lpm, arousal i ndex 81/hr, PLMi 57.2, PLMai 25.6/hr. None of the tested pressures were effective as there were continued events on all pressures tried. The central apneas noted were both [employer] and at times appeared to be sleep wake centrals or related to mask leak. She had poor tolerance to tightening of mask, she wasrefit with an Airtouch F20 small. Recommend work on mask fit, consider chin strap, start BiPAP 18/14cm (avoid auto given centrals) with 4 lpm and consider increasing pressure as tolerated.</p>&lt ;p>
</p><p>Jane tells me she is using the BiPAP most every night. She says she is not aware of any leaking. She has only been using it when she is awake watching TV, she removes it after about four hours and then goes to sleep. She says it annoys me which is why she is notusing it to sleep. She says the Quincuswear full face mask slips around on her head and the hose annoys her. She also has an Airfit F20 but doesn't recall if that fits better. She says she has to use theramp to start because the pressure feels too high at 12/8 cm. </p><p>
</p><p>ESS today 10/05</p><p>
</p><p>COMPLIANCE REVIEW: {{04/17/20-05/16/20# DATES}}, Used {{24# 25 30}}/30 days, average use {{3# 5 6}} hours {{49# number}} minutes anight, 90 th percentile pressure IPAP {{12# 8 9}}cm, 90 th percentile EPAP pressure {{8# 9 10}}cm, time in large air leak {{3 hrs 45# 5 10}} minutes, AHI {{34# 1 2}}/hour.</p>Review of Systems: ROS as noted in the HPI Review of Systems None recorded. Physical Exam ? Notes: <p>General: A&O, well groome d {{over weight obese * morbidly obese normal weight thin}}.
HEAD: no rmocephalic & atraumatic.
EYES: non icteric.
LUNGS: CTA all f ields. Good air movement.
CARDIO: RRR without murmur, gallop or thrill.
NEURO: A&O. Ambulates with walker.
PSYCH: Normal mood and affect.
C UTANEOUS: no overt lesions or rashes</p>
--- OUTSIDE RECORDS SUMMARY | 2020-08-05 12:29 | XMS_ITS ---
:1945 Author Care Team Providers Name Role Phone AMY GRAFF Primary Care Provider [phone] AMY GRAFF Referring Provider [phone] Allergies Code Code System Name Reaction Severity Status Onset 161 RxNorm Acetaminophen ? ? Active ? Adhesive Tape ? ? Active ? 8067567 RxNorm Apricot ? ? Active ? 2670 RxNorm Codeine ? ? Active ? 4763 RxNorm Furosemide ? ? Active ? 620799 RxNorm Lasix ? ? Active ? 7052 RxNorm Morphine ? ? Active ? 7804 RxNorm Oxycodone ? ? Active ? 401063 RxNorm Peanut ? ? Active ? 38194 RxNorm Percocet ? ? Active ? Tree Nut ? ? Active ? Medications Name Status Start Date Stop Date ? ? Allergy Relief (fluticasone) 50 mcg/actuation nasal spray,suspen smitha Active ? Not available [place] 1 spray every day by intranasal route. amlodipine 5 mg tablet Active ? Not avail able Take 1 tablet every day by oral route. atorvastatin 80 mg tablet Active ? Not av ailable Take 1 tablet every day by oral route. bumetanide 0.5 mg tablet Active ? Not katheryn ilable Take 1 tablet every day by oral route. Calcium 600 + D(3) Active ? Not available once daily Colace 100 mg capsule Active ? Not availa ble Take 1 capsule 3 times a day by oral route as needed. ferrous sulfate 325 mg (65 mg iron) tablet Active ? Not available Take 1 tablet every day by oral route. folic acid 1 mg tablet Active ? Not avail able Take 1 tablet every day by oral route. insulin aspart (U-100) 100 unit/mL (3 mL) subcutaneous pen Activ e ? Not available Inject 4 units 3 times a day by subcutaneous route before meals . insulin detemir (U-100) 100 unit/mL (3 mL) subcutaneous pen Acti ve ? Not available Inject 35 units twice a day by subcutaneous route in the evenin g. ipratropium 0.5 mg-albuterol 3 mg (2.5 mg base)/3 mL nebulizatio n soln Active ? Not available Inhale 3 mL 4 times a day by nebulization route. pantoprazole 40 mg tablet,delayed release Active ? Not available Take 1 tablet every day by oral route. polyethylene glycol 3350 Active ? Not katheryn ilable sucralfate 1 gram tablet Active ? Not katheryn ilable Take 1 tablet twice a day by oral route. Vitamin C 100 mg tablet Active ? Not avai lable Take 1 tablet every day by oral route. Problems Name Status Onset Date Source ? Lipoma of Upper Arm Active ? ? Type 2 Diabetes Mellitus Active ? ? Type 1 Diabetes Mellitus Active ? ? Folic Acid Deficiency Active ? ? Hyperlipidemia Active ? ? Iron Deficiency Active ? ? Morbid Obesity Active ? ? Anemia Active ? ? Obstructive Sleep Apnea Syndrome Active ? ? Carpal Tunnel Syndrome Active ? ? Hypertensive Disorder Active ? ? Pulmonary Hypertension Active ? ? Atrial Fibrillation Active ? ? Congestive Heart Failure Active ? ? Venous Hypertension Active ? ? Edentulous Active ? ? Chronic Kidney Disease Active ? ? Female Hirsutism Active ? ? Spinal Stenosis Active ? ? Chronic Low Back Pain Active ? ? Occult Blood in Stools Active ? ? Elbow Fracture Active ? ? Dependence on Supplemental Oxygen Active ? ? Long-term Current Use of Insulin Active ? ? Palliative Care Active ? ? Body Mass Index 40+ - Severely Obese Active ? ? Codependency Active ? ? Serum Vitamin B12 Low Active ? ? Procedures Date Name Performed by ? 03/15/2016 Colonoscopy Information not avai lable 03/15/2004 Shoulder Surgery Information not avai lable 03/15/1998 Hysterectomy Information not avai lable ? Bilateral Knee Prosthetic Information no t available Unicompartmental Arthroplasty ? Carpal Tunnel Surgery Information not av ailable ? Biopsy of Temporal Artery Information no t available Results Lab Results None recorded. Past Encounters 08/15/2019 Peroneal Tendinitis of Left Lower Limb Hao Suarez: [address] [place] [phone], Ph. Social History Tobacco Smoking Status Never Smoker Vaccine List None recorded. Plan of Care Patient Instructions Ice the affected part 15 minutes on 15 minutes off to this several times a day and also try to use a shoe with a sturdy sole so as to keep the foot in a more vertical position from the position of t he resting calcaneus. Reminders Provider Appointments None recorded. ? ? Lab None recorded. ? ? Referral None recorded. ? ? Procedures None recorded. ? ? Surgeries None recorded. ? ? Imaging None recorded. ? ? Vitals Blood Pressure 124/62 mm[Hg]
[2020-08-05 12:50] LABS: Abs Immature Grans 0.03 10^3/uL (0.0-0.06); Absolute Basophil Count 0.05 10^3/uL (0.0-0.2); Absolute Eosinophil Count 0.32 10^3/uL (0.0-0.7); Absolute Lymphocyte Count 1.44 10^3/uL (1.2-3.4); Absolute Monocyte Count 0.53 10^3/uL (0.1-0.8); Absolute Neutrophil Count 6.89 10^3/uL (1.2-6.7); Basophils % 0.5; Eosinophils % 3.5; HCT 38.2 % (36.0-46.0); Immature Grans % 0.3; Lymphocytes % 15.6; MCH 31.3 pg (27.0-33.0); MCHC 31.4 % (32.0-36.0); MCV 99.5 fL (80-95); MPV 10.4 fL (8.0-11.0); Monocytes % 5.7; Neutrophils % 74.4; Nucleated RBC 0 %; Platelet Count 223 10^3/uL (130-400); RBC 3.84 10^6/uL (3.93-5.22); RDW 13.8 % (11.7-14.6); RDW-SD 50.7 fL; WBC 9.26 10^3/uL (4.4-10.8)
[2020-08-05 13:12] LABS: Anion Gap 6.1 mmol/L (3-11); BUN 32 mg/dL (7-18); CO2 35.9 mmol/L (21.0-32.0); CREATININE 1.7 mg/dL (0.55-1.02); Calcium 8.3 mg/dL (8.5-10.1); Chloride 100 mmol/L (98-107); Estimated GFR 29.46 (mL/min/1.73m2); Ferritin 87 ng/mL (8-252); Glucose 276 mg/dL (74-106); Potassium 3.8 mmol/L (3.5-5.1); Sodium 142 mmol/L (136-145)
[2020-08-05 14:41] LABS: Vitamin B12 219 pg/mL (193-986)
== END 2020-08-05 12:19 | disposition home or self-care (01) ==
LOC: LBN 12:18
PROVIDERS: PCP Nurse Practitioner Adult Health; Visit Provider Nurse Practitioner Adult Health
DX: E11.22 Type 2 diabetes mellitus with diabetic chronic kidney disease; R71.8 Other abnormality of red blood cells; D50.9 Iron deficiency anemia, unspecified; N18.30 Chronic kidney disease, stage 3 unspecified; E53.8 Deficiency of other specified B group vitamins
CPT/HCPCS: 80048; 85027; 82607; 82728; 85025

== ENCOUNTER → 2020-08-19 11:12 | Outpatient (BNVA) | payer MEDICARE, SELFPAY | PROVIDERS: PCP Nurse Practitioner Adult Health; Referring Provider Nurse Practitioner Adult Health; Visit Provider Internal Medicine Cardiovascular Disease | DX: G47.33 Obstructive sleep apnea (adult) (pediatric) (principal); I50.9 Heart failure, unspecified; I11.0 Hypertensive heart disease with heart failure; I48.0 Paroxysmal atrial fibrillation; Z79.01 Long term (current) use of anticoagulants; E78.5 Hyperlipidemia, unspecified | CPT/HCPCS: 99214 ==

== ENCOUNTER 2020-10-18 17:41 | Inpatient (IN) | payer MEDICARE, SELFPAY ==
[2020-10-18] VITALS (32 sets, daily range): BP systolic 114–162; BP diastolic 41–114; PULSE 65–92; RESP 12–25; TEMP 36.6–37; O2SAT 87–94
--- NOTE | 2020-10-18 17:30 | RT.EKG_ITS ---
APPROVED REPORT Exam: Resting ECG Reason for Exam: SOB, Hx of CHF Patient Location: E HR:82 bpm ECG Measurements Heart Rate 82 AXIS ME [id number] P [id number] QRSd 81 QRS -25 QT 375 T 60 QTc 439 Conclusion Atrial fibrillation...V-rate 73-106, irreg A-activity Ventricular premature complex...V complex w/ short R-R interval
--- NOTE | 2020-10-18 17:30 | DI.RAD_ITS ---
Exam(s) XR PORTABLE CHEST AP EXAM: XR PORTABLE CHEST AP CLINICAL HISTORY: SOB, Hypoxic TECHNIQUE: COMPARISON: CR XR CHEST 2V PA LATERAL from 08/08/2019 FINDINGS: Portable AP chest at 1800 hours. Cardiac size within normal limits. Question increased prominence o f upper lobe pulmonary vessels raising the possibility of pulmonary venous hypertension. No focal co nsolidation, pulmonary edema, or pleural effusion. IMPRESSION: Question pulmonary venous hypertension, PA and lateral chest suggested for follow-up. RADIATION DOSE DELIVERED: Total DLP
[2020-10-18 18:00] LABS: Source Nasal/Nares
--- NOTE | 2020-10-18 18:03 | ED.GENADUL_ITS ---
Discharge Plan Discharge Details Chief Complaint: SOB Admit Date/Time: 10/18/20 19:26 Admit Provider: Kiran Scott Attending Provider: Kiran Scott Primary Care Provider: Laverne Sung ED Provider: Teresa Johnson Medical Decision Making 75-year-old female past medical history of CHF, atrial fibrillation, obstructive sleep apnea, hypertension, hyperlipidemia type 2 diabetes chronic kidney disease on home O2 presents to the emergency room with chief complaint of increased shortness of breath and increased bilateral lower extremity swelling which has been ongoing for the last week. Patient reports that she received a letter and has not been using her CPAP machine for the last 3 weeks due to a possible recall. She has recently increased her home O2 to 5 L nasal cannula approximately 3 weeks ago. She denies any fever chills denies any pain. She reports some dark stools which she has had a history of. On initial exam she is guaiac negative. Denies any abdominal pain. She does have 2+ pitting edema noted to her bilateral lower extremities. Patient reports that she been taking her normal medications as directed. Respiratory therapy Tequila here at bedside for evaluation on patient initial presentation, she is able to view the history and patient was ordered in 2018 on 4 L nasal cannula home O2 and baseline O2 sat is 94% on 4 L. At this time cardiac work-up ordered including BNP, I do suspect CHF exacerbation. Patient takes Bumex twice daily 1 mg which she reports she has be en taking as prescribed. CBC negative for leukocytosis, sodium 141 potassium 4.3 carbon dioxide is 36.9, anion gap 4.1 BUN 34 creatinine 1.8 GFR is 27, this is decreased slightly last GFR is 29 of July 2020, glucose 256, magnesium 1.7 proBNP is 3272 albumin 3.2, urine protein 100, moderate leukocytes, Covid swab is negative patient is no longer PUI. Imaging protocol: XR of the chest. Views: 1 view. COMPARISON: CR XR CHEST 2V PA LATERAL 08/08/2019 2:18 PM FINDINGS: Lungs: Pulmonary vasculature appears mildly congested. No overt edema. Pleuroparenchymal changes in apices again seen. Azygos fissure. Pleural spaces: Unremarkable. No pleural effusion. No pneumothorax. Heart/Mediastinum: Unremarkable. No cardiomegaly. Bones/joints: Unremarkable. IMPRESSION: Question pulmonary vascular congestion without overt edema. Portable technique limits evaluation. Follow-up PA and lateral is suggested when the patient can tolerate the exam. Thank you for allowing us to participate in the care of your patient. Dictated and Authenticated by: Deandre Watson MD Discussed labs with patient and recommendation for admission for CHF exacerbation she verbalizes understanding and is in agreement with plan. 1924: Spoke with Dr. Scott who is on for hospitalist discussed patient case and details he does agree to accept patient for admission will place holding orders. HPI General Mode of arrival: EMS . Date/Time Provider Initiated Documentation: 10/18/20 18:14 . Limitations to Documentation: no limitations . Information obtained by: patient, EMS and old records reviewed . HPI Narrative: 75-year-old female past medical history of CHF, atrial fibrillation, obstructive sleep apnea, hypertension, hyperlipidemia type 2 diabetes chronic kidney disease on home O2 presents to the emergency room with chief complaint of increased shortness of breath and increased bilateral lower extremity swelling which has been ongoing for the last week. Patient reports that she received a letter and has not been using her CPAP machine for the last 3 weeks due to a possible recall. She has recently increased her home O2 to 5 L nasal cannula approximately 3 weeks ago. She denies any fever chills denies any pain. She reports some dark stools which she has had a history of. On initial exam she is guaiac negative. Denies any abdominal pain. She does have 2+ pitting edema noted to her bilateral lower extremities. Patient reports that she been taking her normal medications as directed. Related Data Home Medications Medication Instructions Recorded Confirmed docusate sodium [Colace] 100 mg PO TID PRN PRN #0 cap 02/24/18 10/18/20 Calcium 600 with Vitamin D3 1 tab PO BID 12/28/18 10/18/20 ipratropium-albuterol 3 ml IH Q6H PRN #180 ml 01/05/19 10/18/20 Oxygen #1 each 04/17/19 10/18/20 insulin detemir U-100 100 unit/mL 38 unit SUBCUT .QHS #60 ml 09/08/19 10/18/20 (3 mL) subcutaneous pen pen needle, diabetic 31 gauge x #100 each 10/31/19 10/18/2005/28 acetaminophen 500 mg tablet 500 mg PO Q6H PRN 12/04/19 10/18/20 bumetanide 1 mg tablet 1 mg PO BID #180 tab 02/05/20 10/18/20 blood sugar diagnostic #300 each 05/02/20 10/18/20 atorvastatin 80 mg tablet 80 mg PO QHS #90 tab 05/15/20 10/18/20 fluticasone propionate 50 1 spray NS DAILY PRN #15.8 ml 05/20/20 10/18/20 mcg/actuation nasal spray,suspension insulin aspart U-100 100 unit/mL See Rx Instructions SUBCUT AC #90 06/24/20 10/18/20 (3 mL) subcutaneous pen ml MDD 30 units lancets 33 gauge #300 each 07/03/20 10/18/20 amlodipine 2.5 mg tablet 2.5 mg PO .daily in AM #90 tab 09/04/20 10/18/20 amlodipine 5 mg tablet 5 mg PO HS #90 tab 09/04/20 10/18/20 apixaban 5 mg tablet 5 mg PO BID #180 tab 09/30/20 10/18/20 pantoprazole 40 mg tablet,delayed 40 mg PO DAILY #90 tab 09/30/20 10/18/20 release Previous Rx's Medication Instructions Recorded docusate sodium [Colace] 100 mg PO TID PRN PRN #0 cap 02/24/18 ipratropium-albuterol 3 ml IH Q6H PRN #180 ml 01/05/19 Oxygen #1 each 04/17/19 insulin detemir U-100 100 unit/mL 38 unit SUBCUT .QHS #60 ml 09/08/19 (3 mL) subcutaneous pen pen needle, diabetic 31 gauge x #100 each 10/31/19/ bumetanide 1 mg tablet 1 mg PO BID #180 tab 02/05/20 blood sugar diagnostic #300 each 05/02/20 atorvastatin 80 mg tablet 80 mg PO QHS #90 tab 05/15/20 fluticasone propionate 50 1 spray NS DAILY PRN #15.8 ml 05/20/20 mcg/actuation nasal spray,suspension insulin aspart U-100 100 unit/mL See Rx Instructions SUBCUT AC #90 06/24/20 (3 mL) subcutaneous pen ml MDD 30 units lancets 33 gauge #300 each 07/03/20 amlodipine 2.5 mg tablet 2.5 mg PO .daily in AM #90 tab 09/04/20 amlodipine 5 mg tablet 5 mg PO HS #90 tab 09/04/20 apixaban 5 mg tablet 5 mg PO BID #180 tab 09/30/20 pantoprazole 40 mg tablet,delayed 40 mg PO DAILY #90 tab 09/30/20 release Allergies Allergy/AdvReac Type Severity Reaction Status Date / Time codeine Allergy Severe Swelling/Ed Verified 10/18/20 17:51 warner furosemide [From Lasix] Allergy Severe Swelling/Ed Verified 10/18/20 17:51 warner morphine Allergy Severe Swelling/Ed Verified 10/18/20 17:51 warner peanut Allergy Severe Verified 10/18/20 17:51 tree nut Allergy Severe Verified 10/18/20 17:51 acetaminophen [From Percocet] Allergy Intermediate ITCHY Verified 10/18/20 17:51 adhesive tape Allergy Intermediate Skin Rash Verified 10/18/20 17:51 oxycodone HCl [From Percocet] Allergy Intermediate ITCHY Verified 10/18/20 17:51 apricot Allergy Unknown Uncoded 10/18/20 17:51 General Stated Complaint: SOB GERALDINE: 2 Review of Systems Narrative: Constitutional: Negative for weight loss, alert and oriented, well groomed, obese body habitus, appears comfortable. HEENT: Denies trauma, headaches, blurry vision, nasal discharge, sore throat, trouble swallowing. Chest: Denies chest pain, palpitations, irregular rhythm, positive increase swelling to her bilateral lower extremities over the last week. Respiratory: Denies hemoptysis. Positive shortness of breath, nonproductive cough. GI: Denies abdominal pain, vomiting, diarrhea, constipation. Positive nausea. : Denies dysuria, hematuria, flank pain, rectal bleeding. Neuro: Denies dizziness, blurry vision, weakness, syncope, headache or facial numbness. Hematologic: Denies easy bruising, intolerance to heat or cold, hair loss. [facility] Medical History Adult body mass index 50.0-59.9 All medications reviewed Anemia Arch pain of left foot Atrial fibrillation Apixaban Carpal tunnel syndrome, bilateral (12/17/16) CHF (congestive heart failure) (02/23/14) Chronic anticoagulation on eliquis Chronic low back pain (07/24/15) CT-lumbar spine 2019-- Severe multilevel degenerative changes in the lumbar spine resulting in neural foraminal and central spinal canal stenosis. 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 Folate deficiency Low 12/2018; resolved 05/2019 labs; discontinued 02/05/2020 Full code status h/o elbow fx H/O fracture of nose H/O rotator cuff tear Heme + stool [facility] Upper GI Endoscopy Peptic Duodenitis (pathology report); repeat hemoccults NEG 11/2019 HTN (hypertension) Hyperlipidemia Hypertension Insulin dependent diabetes mellitus Iron deficiency EGD 05/23/19 at [facility]; discont supp iron & vit c 02/05/2020; Hgb stable and iron constipating; she will obtain dietarily Lipoma of arm Obstructive sleep apnea (02/23/14) Sleep Med Referral, 04/17/2019-->Very severe YARELY; CPAP ([facility]) with continuous O2 Obstructive sleep apnea treated with BiPAP YARELY (obstructive sleep apnea) Palliative care status Peptic ulcer of duodenum [facility] Path reports upper endoscopy; RX Carafate Pulmonary hypertension Risk for falls Sedentary lifestyle Spinal stenosis, lumbar Type II diabetes mellitus Vaccine counseling strongly recommended COVID-19 vaccine she is high risk for multiple reasons PCP office adding her to list of home vaccines Surgical History Biopsy, Temporal Artery (01/18/15) DR[facility]C YOUNG [place] [facility] [place] History of carpal tunnel repair Left- 1998 Right- 2017 History of shoulder surgery Right shoulder repair - 2004 History of total abdominal hysterectomy and bilateral salpingo-oophorectomy (~02/1999) History of total bilateral knee replacement Family History Mother Heart disease Father Heart disease Lung cancer Brother Heart disease AAA (abdominal aortic aneurysm, ruptured) Brother Obesity Son No problems noted. Daughter Stillborn, abnormal Daughter No problems noted. Social History Smoking/Tobacco Use Status: Never Second Hand Exposure: Yes Smoking risk assessment performed?: Yes Alcohol Intake: former Details: never drank heavily but her husbands did Drug use: Never Substance use type: does not use Adopted: No Caregiver/Support person: Yes Foster care: No Household members: children Housing: house Number of Children: 2 number of grandchildren: 8 Communication Needs: Corrective Lenses Education Level: middle school Do you need help understanding health information?: Always current occupation: Retired- [employer] Pets and animals: Yes Pets and animals: cat(s) Sexually active: No Do you think of yourself as: straight/heterosexual Current gender identity: female What is your relationship status?: How often do you talk on the phone with friends or family?: once per week How often do you get together with friends or relatives?: once per week Panel score (0-1 are the most socially isolated patients): 0 What type of physical activity do you participate in: none and sedentary lifestyle Special jakob needs: No Agree to transfusion: Yes Seatbelt use: always In current or past relationships, have you been: made to feel afraid Do you feel safe at home: Yes Do you feel safe in your relationship?: Yes Additional Social history: Lives with son Abdias in [facility]. He works. He never left home. She is on home oxygen. Spends most of her day watching TV, s itting on couch. Has a cat. Never smoked. Has been 3 times. 2 husbands have , from one. Daughter lives in [place] with her 8 kids. Exam Narrative Exam Narrative: Constitutional: Alert and oriented x3. Appears stated age. Obese body habitus. Head: Normocephalic, no trauma. Eyes: Pupils PERRLA, Red reflex noted, EOM's intact. Eyelids symmetrical without lesions, discharge, or swelling. ENT: Bilateral TM's WNL, External ear normal to inspection, no mastoid TTP, swelling, or erythema, Nasal turbinates WNL, no nasal discharge. Normal dentition, Posterior pharynx WNL, no exudate. Chest: Irregular rate, pulse 80 controlled atrial fibrillation, Normal S1, S2, distal pulses intact. Resp: Lungs clear to auscultation right lobes, diminished in the left. Abdomen: Soft, nondistended nontender to palpation all 4 quadrants. Patient does report some midepigastrium pressure. Musculoskeletal: unable to assess, 5/5 strength to all four extremities. 2+ pitting edema noted to the ankles and bilateral feet. Skin: No suspicious rashes or lesions. Capillary refill less than 2 sec. Neurologic: Cranial nerves II-XII intact. Alert and oriented x 3. DTR's intact. Hematologic/Lymphatic: No ecchymosis, no lymphadenopathy. Course Vital Signs Vital signs: Vital Signs Temperature 37 C 10/18/20 17:43 Pulse 80 10/18/20 17:43 Respiratory Rate 14 10/18/20 17:43 Blood Pressure 131/55 L 10/18/20 17:43 Pulse Oximetry 93 10/18/20 17:43 Temperature 37 C 10/18/20 17:43 Temperature Source Skin 10/18/20 17:43 Pulse 80 10/18/20 17:43 Respiratory Rate 18 10/18/20 17:53 Respiratory Effort 10/18/20 17:53 Blood Pressure 131/55 L 10/18/20 17:43 Pulse Oximetry 93 10/18/20 17:43 Oxygen Delivery Method Nasal Cannula 10/18/20 17:43 Oxygen Flow Rate 4 10/18/20 17:43 Pain Level 0 10/18/20 17:43 Comment 10/18/20 17:43 Lab/Test Results Lab/Test Results: Laboratory Tests Range/Units 10/18/20 17:55 COVID-19 Source Nasal/Nares Procedures Stool Hemoccult Procedural Steps Taken: stool placed in appropriate test area, developer placed on stool and control areas and controls appropriately positive and negative Hemoccult result: negative
[2020-10-18 18:04] LABS: Abs Immature Grans 0.03 10^3/uL (0.0-0.06); Absolute Basophil Count 0.03 10^3/uL (0.0-0.2); Absolute Eosinophil Count 0.23 10^3/uL (0.0-0.7); Absolute Lymphocyte Count 2.07 10^3/uL (1.2-3.4); Absolute Monocyte Count 0.59 10^3/uL (0.1-0.8); Basophils % 0.4; HCT 38.7 % (36.0-46.0); HGB 11.5 g/dL (11.2-15.7); Immature Grans % 0.4; Lymphocytes % 26.7; MCH 29.3 pg (27.0-33.0); MCHC 29.7 % (32.0-36.0); MCV 98.7 fL (80-95); MPV 10.5 fL (8.0-11.0); Monocytes % 7.6; Neutrophils % 61.9; Nucleated RBC 0 %; Platelet Count 234 10^3/uL (130-400); RBC 3.92 10^6/uL (3.93-5.22); RDW 15.8 % (11.7-14.6); RDW-SD 56.1 fL; WBC 7.75 10^3/uL (4.4-10.8)
[2020-10-18 18:24] LABS: ALT 11 U/L (14-59); AST 7 U/L (15-37); Albumin 3.2 g/dL (3.4-5.0); Alkaline Phosphatase 73 U/L (46-116); Anion Gap 4.1 mmol/L (3-11); BUN 34 mg/dL (7-18); Bilirubin, Total 0.3 mg/dL (0.2-1.0); CO2 36.9 mmol/L (21.0-32.0); CREATININE 1.8 mg/dL (0.55-1.02); Calcium 9.5 mg/dL (8.5-10.1); Chloride 100 mmol/L (98-107); Glucose 256 mg/dL (74-106); Magnesium 1.7 mg/dL (1.8-2.4); NT-proBNP 3272 pg/mL (<300); Potassium 4.3 mmol/L (3.5-5.1); Sodium 141 mmol/L (136-145); Total Protein 7.2 g/dL (6.4-8.2)
[2020-10-18 18:27] LABS: Troponin I < 0.05 ng/mL (<0.06)
--- NOTE | 2020-10-18 18:33 | DI.VRAD_ITS ---
PROCEDURE INFORMATION: Exam: XR Chest Exam date and time: 10/18/2020 5:37 PM Age: 75 years old Clinical indication: Shortness of breath and other: Hypoxic; Patient HX: SOB, hypoxic TECHNIQUE: Imaging protocol: XR of the chest. Views: 1 view. COMPARISON: CR XR CHEST 2V PA LATERAL 08/08/2019 2:18 PM FINDINGS: Lungs: Pulmonary vasculature appears mildly congested. No overt edema. Pleuroparenchymal changes in apices again seen. Azygos fissure. Pleural spaces: Unremarkable. No pleural effusion. No pneumothorax. Heart/Mediastinum: Unremarkable. No cardiomegaly. Bones/joints: Unremarkable. IMPRESSION: Question pulmonary vascular congestion without overt edema. Portable technique limits evaluation. Follow-up PA and lateral is suggested when the patient can tolerate the exam. Dictated and Authenticated by: Deandre Watson MD. Ordering:LAZARO Moore MD
[2020-10-18 18:54] LABS: COVID-19 PCR Negative (Negative)
[2020-10-18] MEDS: Bumetanide 1 MG/4 ML VIAL IVP ×2 (18:54→22:30)
[2020-10-18 19:14] LABS: Bilirubin Negative (Negative); Blood Negative (Negative); Clarity Sl Cloudy (Clear); Glucose Negative (Negative); Ketones Negative (Negative); Leukocyte Esterase Moderate (Negative); Nitrite Negative (Negative); Urobilinogen 0.2 EU/dL (Up TO 0.2); pH 5.5 (5-8)
[2020-10-18 19:23] LABS: Bacteria Moderate HPF (Negative); C & S Indicated? No/Sq. Contamination; Casts Negative LPF (Negative); Crystals Negative HPF (Negative); Epithelial Cells Many HPF (Negative); Mucus Moderate (Negative); RBC 0-2 HPF (0-2)
--- NOTE | 2020-10-18 19:48 | RESPIRATORY ---
10/18/2020-Pt states she is on home CPAP of 10 cmh20 with a bleed in of 2 LPM nocturnally. Daytime 4 LPM [place].Unable to verify RX's as DME is closed at this time. DME: Mary.
[2020-10-18 21:33] LABS: Troponin I < 0.05 ng/mL (<0.06)
--- NOTE | 2020-10-18 21:38 | HPE_ITS ---
Date of service: 10/18/20 Time of Service: 21:38 Assessment and Plan Assessment and plan (1) Obstructive sleep apnea treated with BiPAP: Status: Acute Assessment and plan: Her BiPAP will her BiPAP will be continued in the hospital. (2) Chronic anticoagulation: Status: Chronic Assessment and plan: Her apixaban will be continued for her chronic atrial fibrillation. (3) CHF (congestive heart failure): Status: Chronic Assessment and plan: She was given 1 milligram of bumetanide in the emergency department and will be given another dose now. Electrolytes will be checked tomorrow along with her kidney function. Her troponin will be rechecked tonight. Qualifiers: Heart failure type: unspecified Heart failure chronicity: chronic Qualified Code(s): I50.9 - Heart failure, unspecified History of Present Illness History of Present Illness Chief Complaint: dyspnea Narrative: This 75-year-old female is here because of shortness of breath. She has a history of both heart and lung problems. She has sleep apnea, chronic obstructive lung disease and heart failure. She lives with her son Ricco but he is not there him some of the time because of work obligations. She has been using oxygen 2 L/min and the recent increase at 3 L/min. Her BiPAP machine has been on recall and she was told not to use it a few weeks ago but she has been using it mostly for the last week because she felt she needed it. She says a vendor told her that they could not afford new machines to give her. She will use it 2 hours last night and developed what sounds like PND and Deanna night last night. She said she was choking. This morning she was not feeling any better and called 911. She was brought to the emergency room where she had an evaluation. She says her dyspnea is been bothering her for the last week and the increase of 2 to 3 L/min and the oxygen has not helped. Her son was sick with an upper respiratory infection about 2 weeks ago but has improved. She has had both her coronavirus vaccines. She did have some chest pain today she says is 7-8 out of 10 and lasted most of the day. It was located in the central chest area. She also had some back pain this evening. Last night she was incontinent of some urine. She has a history of atrial fibrillation says she takes medicines as directed. She states she was told to monitor her weights regularly but she says she weighs herself about once a month. She does not use tobacco or alcohol. She says she does desire full resuscitation measures done if she should develop cardiac or respiratory arrest. Her weight when she was seen in August of this mikhaila r was 114 kg and today she weighs 121 kg. Review of Systems Constitutional Constitutional: Denies body ache(s), Denies chills, Denies fever(s), Denies headache(s), Reports lethargy and Reports weight gain ENT Ears, Nose, Mouth, and Throat: Denies headache(s) Cardiovascular Cardiovascular: Reports chest pain, Denies palpitations, Reports dyspnea, Reports dyspnea on exertion, Reports paroxysmal nocturnal dyspnea and Denies slow heart rate Respiratory Respiratory: Denies chest congestion, Denies cough, Reports dyspnea and Reports dyspnea on exertion Gastrointestinal Gastrointestinal: Denies change in bowel habits, Denies diarrhea, Denies nausea and Denies vomiting Genitourinary Genitourinary: Denies dysuria and Reports urinary incontinence (yesterday) Musculoskeletal Musculoskeletal: Denies numbness Neurologic Neurologic: Denies abnormal speech, Denies headache(s) and Denies numbness Endocrine Endocrine: Denies palpitations ON LICENSE OF [facility] Medical History Adult body mass index 50.0-59.9 All medications reviewed Anemia Arch pain of left foot Atrial fibrillation Apixaban Carpal tunnel syndrome, bilateral (12/17/16) CHF (congestive heart failure) (02/23/14) Chronic anticoagulation on eliquis Chronic low back pain (07/24/15) CT-lumbar spine 2019-- Severe multilevel degenerative changes in the lumbar spine resulting in neural foraminal and central spinal canal stenosis. 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 Folate deficiency Low 12/2018; resolved 05/2019 labs; discontinued 02/05/2020 Full code status h/o elbow fx H/O fracture of nose H/O rotator cuff tear Heme + stool [facility] Upper GI Endoscopy Peptic Duodenitis (pathology report); repeat hemoccults NEG 11/2019 HTN (hypertension) Hyperlipidemia Hypertension Insulin dependent diabetes mellitus Iron deficiency EGD 05/23/19 at [facility]; discont supp iron & vit c 02/05/2020; Hgb stable and iron constipating; she will obtain dietarily [place] of arm Obstructive sleep apnea (02/23/14) Sleep Med Referral, 04/17/2019-->Very severe YARELY; CPAP ([facility]) with continuous O2 Obstructive sleep apnea treated with BiPAP YARELY (obstructive sleep apnea) Palliative care status Peptic ulcer of duodenum [facility] Path reports upper endoscopy; RX Carafate Pulmonary hypertension Risk for falls Sedentary lifestyle Spinal stenosis, lumbar Type II diabetes mellitus Vaccine counseling strongly recommended COVID-19 vaccine she is high risk for multiple reasons PCP office adding her to list of home vaccines Surgical History Biopsy, Temporal Artery (01/18/15) DR.C YOUNG Colonoscopy - MAC (08/14/16) History of carpal tunnel repair Left- 1998 Right- 2017 History of shoulder surgery Right shoulder repair - 2004 History of total abdominal hysterectomy and bilateral salpingo-oophorectomy (~02/1999) History of total bilateral knee replacement Family History Mother Heart disease Father Heart disease Lung cancer Brother Heart disease AAA (abdominal aortic aneurysm, ruptured) Brother Obesity Son No problems noted. Daughter Stillborn, abnormal Daughter No problems noted. Social History Smoking/Tobacco Use Status: Never Second Hand Exposure: Yes Smoking risk assessment performed?: Yes Alcohol Intake: former Details: never drank heavily but her husbands did Drug use: Never Substance use type: does not use Adopted: No Caregiver/Support person: Yes Foster care: No Household members: children Housing: house Number of Children: 2 number of grandchildren: 8 Communication Needs: Corrective Lenses Education Level: middle school Do you need help understanding health information?: Always current occupation: Retired- [employer] Pets and animals: Yes Pets and animals: cat(s) Sexually active: No Do you think of yourself as: straight/heterosexual Current gender identity: female What is your relationship status?: How often do you talk on the phone with friends or family?: once per week How often do you get together with friends or relatives?: once per week Panel score (0-1 are the most socially isolated patients): 0 What type of physical activity do you participate in: none and sedentary lifestyle Special jakob needs: No Agree to transfusion: Yes Seatbelt use: always In current or past relationships, have you been: made to feel afraid Do you feel safe at home: Yes Do you feel safe in your relationship?: Yes Additional Social history: Lives with son Abdias in house trailer. He works. He never left home. She is on home oxygen. Spends most of her day watching TV, sitting on couch. Has a cat. Never smoked. Has been 3 times. 2 husbands have , from one. Daughter lives in [place] with her 8 kids. Meds Allergies and Home Medications Allergies Allergy/AdvReac Type Severity Reaction Status Date / Time codeine Allergy Severe Swelling/Ed Verified 10/18/20 17:51 warner furosemide [From Lasix] Allergy Severe Swelling/Ed Verified 10/18/20 17:51 warner morphine Allergy Severe Swelling/Ed Verified 10/18/20 17:51 warner peanut Allergy Severe Verified 10/18/20 17:51 tree nut Allergy Severe Verified 10/18/20 17:51 acetaminophen [From Percocet] Allergy Intermediate ITCHY Verified 10/18/20 17:51 adhesive tape Allergy Intermediate Skin Rash Verified 10/18/20 17:51 oxycodone HCl [From Percocet] Allergy Intermediate ITCHY Verified 10/18/20 17:51 apricot Allergy Unknown Uncoded 10/18/20 17:51 Home Medications Medication Instructions Recorded Confirmed Type docusate sodium [Colace] 100 mg PO TID PRN PRN #0 cap 02/24/18 10/18/20 Rx Calcium 600 with Vitamin D3 1 tab PO BID 12/28/18 10/18/20 History ipratropium-albuterol 3 ml IH Q6H PRN #180 ml 01/05/19 10/18/20 Rx Oxygen #1 each 04/17/19 10/18/20 Rx insulin detemir U-100 100 unit/mL 38 unit SUBCUT .QHS #60 ml 09/08/19 10/18/20 Rx (3 mL) subcutaneous pen pen needle, diabetic 31 gauge x #100 each 10/31/19 10/18/20 Rx 3/ acetaminophen 500 mg tablet 500 mg PO Q6H PRN 12/04/19 10/18/20 History bumetanide 1 mg tablet 1 mg PO BID #180 tab 02/05/20 10/18/20 Rx blood sugar diagnostic #300 each 05/02/20 10/18/20 Rx atorvastatin 80 mg tablet 80 mg PO QHS #90 tab 05/15/20 10/18/20 Rx fluticasone propionate 50 1 spray NS DAILY PRN #15.8 ml 05/20/20 10/18/20 Rx mcg/actuation nasal spray,suspension insulin aspart U-100 100 unit/mL See Rx Instructions SUBCUT AC #90 06/24/20 10/18/20 Rx (3 mL) subcutaneous pen ml MDD 30 units lancets 33 gauge #300 each 07/03/20 10/18/20 Rx amlodipine 2.5 mg tablet 2.5 mg PO .daily in AM #90 tab 09/04/20 10/18/20 Rx amlodipine 5 mg tablet 5 mg PO HS #90 tab 09/04/20 10/18/20 Rx apixaban 5 mg tablet 5 mg PO BID #180 tab 09/30/20 10/18/20 Rx pantoprazole 40 mg tablet,delayed 40 mg PO DAILY #90 tab 09/30/20 10/18/20 Rx release Exam Const General: cooperative, no acute distress and not lethargic Nutritional Appearance: obese Orientation: alert, awake and oriented x3 Neck Neck: normal visual inspection and no lymphadenopathy Resp Effort & Inspection: normal respiratory effort and able to speak in complete sentences Auscultation: clear to auscultation bilaterally, no rales, no rhonchi and no wheezes Cardio Jugular venous pressure: no JVD Rate: regular rate Rhythm: abnormal rhythm Heart Sounds: S1 normal, S2 normal, no gallops and no murmurs GI Inspection: normal to inspection and distended Palpation: no hepatosplenomegaly and nontender Neuro General: patient alert, patient awake and patient oriented x3 Extrem Right lower extremity: edema Left lower extremity: edema Other: +3 edema both lower legs Psych Mental Status: mental status grossly normal Results Labs Result diagrams: 10/18/20 17:26 10/18/20 17:26 Labs: Laboratory Results - last 24 hr 10/18/20 10/18/20 10/18/20 17:26 17:26 17:55 WBC 7.75 RBC 3.92 L Hgb 11.5 Hct 38.7 MCV 98.7 H MCH 29.3 MCHC 29.7 L RDW 15.8 H Plt Count 234 MPV 10.5 Immature Gran % 0.4 Neutrophils % 61.9 Lymphocytes % 26.7 Monocytes % 7.6 Eosinophils % 3.0 Basophils % 0.4 Nucleated RBC % 0 Absolute Neutrophils 4.80 Absolute Lymphocytes 2.07 Absolute Monocytes 0.59 Absolute Eosinophils 0.23 Absolute Basophils 0.03 Sodium 141 Potassium 4.3 Chloride 100 Carbon Dioxide 36.9 H Anion Gap 4.1 BUN 34 H Creatinine 1.8 H Estimated GFR/1.73 m2 27.50 Glucose 256 H Calcium 9.5 Magnesium 1.7 L Total Bilirubin 0.3 AST 7 L ALT 11 L Alkaline Phosphatase 73 Troponin I < 0.05 NT-Pro-B Natriuret Pep 3272 H Total Protein 7.2 Albumin 3.2 L Urine Color Urine Clarity Urine pH Ur Specific [place] Urine Protein Urine Ketones Urine Blood Urine Nitrite Urine Bilirubin Urine Urobilinogen Ur Leukocyte Esterase Urine RBC Urine WBC Ur Epithelial Cells Urine Crystals Urine Bacteria Urine Casts Urine Mucus Ur Culture Indicated? Urine Glucose COVID-19 Source Nasal/Nares SARS-CoV-2 (PCR) Negative 10/18/20 10/18/20 19:00 21:12 WBC RBC Hgb Hct MCV MCH MCHC RDW Plt Count MPV Immature Gran % Neutrophils % Lymphocytes % Monocytes % Eosinophils % Basophils % Nucleated RBC % Absolute Neutrophils Absolute Lymphocytes Absolute Monocytes Absolute Eosinophils Absolute Basophils Sodium Potassium Chloride Carbon Dioxide Anion Gap BUN Creatinine Estimated GFR/1.73 m2 Glucose Calcium Magnesium Total Bilirubin AST ALT Alkaline Phosphatase Troponin I < 0.05 NT-Pro-B Natriuret Pep Total Protein Albumin Urine Color Yellow Urine Clarity Sl Cloudy Urine pH 5.5 Ur Specific [place] 1.020 Urine Protein 100 H Urine Ketones Negative Urine Blood Negative Urine Nitrite Negative Urine Bilirubin Negative Urine Urobilinogen 0.2 Ur Leukocyte Esterase Moderate H Urine RBC 0-2 Urine WBC 10-20 H Ur Epithelial Cells Many Urine Crystals Negative Urine Bacteria Moderate Urine Casts Negative Urine Mucus Moderate Ur Culture Indicated? No/Sq. Contamination Urine Glucose Negative COVID-19 Source SARS-CoV-2 (PCR) Last Vital Signs Temp 36.6 C 10/18/20 20:34 Pulse 74 10/18/20 21:34 Resp 16 10/18/20 20:34 BP 147/56 H 10/18/20 20:34 Pulse Ox 92 10/18/20 20:34
[2020-10-18] MEDS: Atorvastatin 40 MG TAB 80 MG PO (22:30)
[2020-10-18] MEDS: amLODIPine 5 MG TAB PO (22:30)
[2020-10-18] MEDS: Normal Saline Flush 10 ML SYR IVP (22:32)
[2020-10-19] VITALS (14 sets, daily range): BP systolic 128–150; BP diastolic 64–75; PULSE 71–84; RESP 4–21; TEMP 36.4–37.1; O2SAT 83–99
[2020-10-19] MEDS: Albuterol/Ipratropium 3 ML UPD VIAL IH (00:51)
[2020-10-19 07:20] LABS: Abs Immature Grans 0.01 10^3/uL (0.0-0.06); Absolute Basophil Count 0.04 10^3/uL (0.0-0.2); Absolute Eosinophil Count 0.24 10^3/uL (0.0-0.7); Absolute Lymphocyte Count 1.64 10^3/uL (1.2-3.4); Absolute Monocyte Count 0.64 10^3/uL (0.1-0.8); Absolute Neutrophil Count 5.42 10^3/uL (1.2-6.7); Basophils % 0.5; HGB 10.8 g/dL (11.2-15.7); Immature Grans % 0.1; Lymphocytes % 20.5; MCH 29.7 pg (27.0-33.0); MCV 98.9 fL (80-95); MPV 10.5 fL (8.0-11.0); Neutrophils % 67.9; Nucleated RBC 0 %; Platelet Count 208 10^3/uL (130-400); RBC 3.64 10^6/uL (3.93-5.22); RDW 15.9 % (11.7-14.6); WBC 7.99 10^3/uL (4.4-10.8)
[2020-10-19 07:33] LABS: Anion Gap 1.1 mmol/L (3-11); BUN 32 mg/dL (7-18); CO2 40.9 mmol/L (21.0-32.0); CREATININE 1.7 mg/dL (0.55-1.02); Calcium 9.2 mg/dL (8.5-10.1); Chloride 104 mmol/L (98-107); Estimated GFR 29.38 (mL/min/1.73m2); Glucose 155 mg/dL (74-106); Potassium 4.3 mmol/L (3.5-5.1); Sodium 146 mmol/L (136-145)
[2020-10-19] MEDS: Bumetanide 1 MG TAB 2 MG PO ×2 (09:30→16:06)
[2020-10-19] MEDS: Apixaban 5 MG TAB PO ×2 (09:30→19:40)
[2020-10-19] MEDS: Pantoprazole 40 MG TABCR PO (09:30)
[2020-10-19] MEDS: Insulin Aspart 300 UNITS/3 ML PEN SC ×2 (09:30→13:20)
[2020-10-19] MEDS: amLODIPine 5 MG TAB PO (11:42)
[2020-10-19] MEDS: amLODIPine 2.5 MG TAB PO (11:42)
--- NOTE | 2020-10-19 14:38 | PGE_ITS ---
Date of Service Date of service: 10/19/20 Time of Service: 14:38 Assessment and Plan Assessment and plan (1) CHF (congestive heart failure): Status: Chronic Assessment and plan: duiresing, continue bumex weight down 1 kg overnight, -500 cc since this morning. follow I&O, daily weights last echo- Conclusion Left Ventricle : The left ventricle is grossly normal size. Mild to moderate concentric left ventricular hypertrophy. The left ventricular systolic function is normal. The left ventricular ejection fraction is within the normal range. There is normal LV segmental wall motion. Flattened septum consistent with right ventricular volume overload. The left ventricular diastolic function is normal. LVEF is 65-70%. without obstruction Right Ventricle : Right ventricle is moderately dilated. Right ventricle is mild to moderately hypokinetic. Right ventricle is mildly hypertrophied. Atria : Left atrium is mildly dilated. Right atrium is mildly dilated. Aortic Valve : The aortic valve is normal in structure, probably trileaflet, mobile. There is no aortic valvular stenosis. No aortic regurgitation is present. Mitral Valve : The mitral valve is normal in structure. Trace mitral to mild regurgitation. Tricuspid Valve : The tricuspid valve is normal in structure. Mild to moderate tricuspid regurgitation. RVSP is estimated to be >60mmHg Great Vessels : Dilated IVC with poor inspiration collapse is consistent with elevated right atrial pressure. Compared to echocardiogram dated 02/2014 RVSP is now significantly elevated Qualifiers: Heart failure chronicity: chronic Heart failure type: unspecified Qualified Code(s): I50.9 - Heart failure, unspecified (2) Obstructive sleep apnea treated with BiPAP: Status: Acute Assessment and plan: Her BiPAP will her BiPAP will be continued in the hospital. (3) Chronic anticoagulation: Status: Chronic Assessment and plan: on apixaban for chronic atrial fibrillation. (4) Type II diabetes mellitus: Status: Chronic Assessment and plan: continue diabetic diet with sliding scale coverage ac/hs continue home medications A1C 7.4 in July 2020 blood sugars 153-176 Qualifiers: Chronic kidney disease stage: stage 3 (moderate) Diabetes mellitus complication detail: with chronic kidney disease Diabetes mellitus complication status: with kidney complications Diabetes mellitus buttermaker continuous churn insulin use: with assisted use Qualified Code(s): E11.22 - Type 2 diabetes mellitus with diabetic chronic kidney disease; N18.3 - Chronic kidney disease, stage 3 (moderate); Z79.4 - senior care (current) use of insulin (5) CKD (chronic kidney disease): Status: Chronic Assessment and plan: creatinine stable and at baseline. avoid nephrotoxic drugs. Qualifiers: Chronic kidney disease stage: stage 3 (moderate) Qualified Code(s): N18.3 - Chronic kidney disease, stage 3 (moderate) (6) Discharge planning issues: Status: Acute Assessment and plan: case management following discussed with Dr Varner Exam Const General: cooperative, no acute distress and not lethargic Nutritional Appearance: obese Orientation: alert, awake and oriented x3 Neck Neck: normal visual inspection and no lymphadenopathy Resp Effort & Inspection: normal respiratory effort and able to speak in complete sentences Auscultation: clear to auscultation bilaterally, no rales, no rhonchi and no wheezes Cardio Jugular venous pressure: no JVD Rate: regular rate Rhythm: abnormal rhythm Heart Sounds: S1 normal, S2 normal, no gallops and no murmurs GI Inspection: normal to inspection and distended Palpation: no hepatosplenomegaly and nontender Neuro General: patient alert, patient awake and patient oriented x3 Extrem Right lower extremity: edema Left lower extremity: edema Psych Mental Status: mental status grossly normal Objective Last Vital Signs Temp 36.5 C 10/19/20 11:43 Pulse 76 10/19/20 11:43 Resp 21 10/19/20 11:43 BP 130/75 10/19/20 11:43 Pulse Ox 92 10/19/20 11:43 Laboratory Results - last 24 hr 10/18/20 10/18/20 10/18/20 17:26 17:26 17:55 WBC 7.75 RBC 3.92 L Hgb 11.5 Hct 38.7 MCV 98.7 H MCH 29.3 MCHC 29.7 L RDW 15.8 H Plt Count 234 MPV 10.5 Immature Gran % 0.4 Neutrophils % 61.9 Lymphocytes % 26.7 Monocytes % 7.6 Eosinophils % 3.0 Basophils % 0.4 Nucleated RBC % 0 Absolute Neutrophils 4.80 Absolute Lymphocytes 2.07 Absolute Monocytes 0.59 Absolute Eosinophils 0.23 Absolute Basophils 0.03 Sodium 141 Potassium 4.3 Chloride 100 Carbon Dioxide 36.9 H Anion Gap 4.1 BUN 34 H Creatinine 1.8 H Estimated GFR/1.73 m2 27.50 Glucose 256 H Calcium 9.5 Magnesium 1.7 L Total Bilirubin 0.3 AST 7 L ALT 11 L Alkaline Phosphatase 73 Troponin I < 0.05 NT-Pro-B Natriuret Pep 3272 H Total Protein 7.2 Albumin 3.2 L Urine Color Urine Clarity Urine pH Ur Specific [place] Urine Protein Urine Ketones Urine Blood Urine Nitrite Urine Bilirubin Urine Urobilinogen Ur Leukocyte Esterase Urine RBC Urine WBC Ur Epithelial Cells Urine Crystals Urine Bacteria Urine Casts Urine Mucus Ur Culture Indicated? Urine Glucose COVID-19 Source Nasal/Nares SARS-CoV-2 (PCR) Negative 10/18/20 10/18/20 10/19/20 19:00 21:12 06:48 WBC RBC Hgb Hct MCV MCH MCHC RDW Plt Count MPV Immature Gran % Neutrophils % Lymphocytes % Monocytes % Eosinophils % Basophils % Nucleated RBC % Absolute Neutrophils Absolute Lymphocytes Absolute Monocytes Absolute Eosinophils Absolute Basophils Sodium 146 H Potassium 4.3 Chloride 104 Carbon Dioxide 40.9 H Anion Gap 1.1 L BUN 32 H Creatinine 1.7 H Estimated GFR/1.73 m2 29.38 Glucose 155 H D Calcium 9.2 Magnesium Total Bilirubin AST ALT Alkaline Phosphatase Troponin I < 0.05 NT-Pro-B Natriuret Pep Total Protein Albumin Urine Color Yellow Urine Clarity Sl Cloudy Urine pH 5.5 Ur Specific [place] 1.020 Urine Protein 100 H Urine Ketones Negative Urine Blood Negative Urine Nitrite Negative Urine Bilirubin Negative Urine Urobilinogen 0.2 Ur Leukocyte Esterase Moderate H Urine RBC 0-2 Urine WBC 10-20 H Ur Epithelial Cells Many Urine Crystals Negative Urine Bacteria Moderate Urine Casts Negative Urine Mucus Moderate Ur Culture Indicated? No/Sq. Contamination Urine Glucose Negative COVID-19 Source SARS-CoV-2 (PCR) 10/19/20 06:48 WBC 7.99 RBC 3.64 L Hgb 10.8 L Hct 36.0 MCV 98.9 H MCH 29.7 MCHC 30.0 L RDW 15.9 H Plt Count 208 MPV 10.5 Immature Gran % 0.1 Neutrophils % 67.9 Lymphocytes % 20.5 Monocytes % 8.0 Eosinophils % 3.0 Basophils % 0.5 Nucleated RBC % 0 Absolute Neutrophils 5.42 Absolute Lymphocytes 1.64 Absolute Monocytes 0.64 Absolute Eosinophils 0.24 Absolute Basophils 0.04 Sodium Potassium Chloride Carbon Dioxide Anion Gap BUN Creatinine Estimated GFR/1.73 m2 Glucose Calcium Magnesium Total Bilirubin AST ALT Alkaline Phosphatase Troponin I NT-Pro-B Natriuret Pep Total Protein Albumin Urine Color Urine Clarity Urine pH Ur Specific [place] Urine Protein Urine Ketones Urine Blood Urine Nitrite Urine Bilirubin Urine Urobilinogen Ur Leukocyte Esterase Urine RBC Urine WBC Ur Epithelial Cells Urine Crystals Urine Bacteria Urine Casts Urine Mucus Ur Culture Indicated? Urine Glucose COVID-19 Source SARS-CoV-2 (PCR)
[2020-10-19] MEDS: Atorvastatin 40 MG TAB 80 MG PO (19:40)
[2020-10-20] VITALS (11 sets, daily range): BP systolic 128–165; BP diastolic 62–81; PULSE 61–79; RESP 18–20; TEMP 36–36.7; O2SAT 85–96
[2020-10-20] MEDS: Acetaminophen 500 MG TAB PO ×2 (06:49→19:36)
[2020-10-20 08:21] LABS: Anion Gap -0.5 mmol/L (3-11); BUN 36 mg/dL (7-18); CO2 40.5 mmol/L (21.0-32.0); CREATININE 1.8 mg/dL (0.55-1.02); Chloride 102 mmol/L (98-107); Glucose 121 mg/dL (74-106); Magnesium 1.6 mg/dL (1.8-2.4); Potassium 4.6 mmol/L (3.5-5.1); Sodium 142 mmol/L (136-145)
[2020-10-20] MEDS: Bumetanide 1 MG TAB 2 MG PO (08:23)
[2020-10-20] MEDS: Apixaban 5 MG TAB PO ×2 (08:23→19:36)
[2020-10-20] MEDS: amLODIPine 2.5 MG TAB PO (08:23)
[2020-10-20] MEDS: Pantoprazole 40 MG TABCR PO (08:24)
[2020-10-20] MEDS: amLODIPine 5 MG TAB PO (08:24)
--- NOTE | 2020-10-20 09:25 | RESPIRATORY ---
Pt states she had quit using her Cpap at home after the recall but began using it again prior to this hospital admission. Pt has tried using the L[place]ou but per pt, the mask hurts her face and she is unable to tolerate it. I offeref for her home mask to be brought in by family and will see if her mask from home is compatible with our L[employer]ou unit.
[2020-10-20] MEDS: MAGNESIUM SULFATE 2 GM/50 ML BAG IVPB (10:14)
--- NOTE | 2020-10-20 10:14 | IN_ITS ---
Date of service: 10/20/20 Time of Service: 09:50 PT Notes Visit Reasons: CHF Exacerbation Inpatient Physical Therapy Evaluation Date: 10/20/20 Referring Doctor: Myah Victor PT Orders: PT CONSULT: Evaluate and Treat Precautions: Standard Patient Profile/Admitting Diagnosis: Orders received for this 75 year old female who has been having some increased dyspnea at home for a few days. She has CHF at baseline and this appears to be an exacerbation of the current condition. Medical History Adult body mass index 50.0-59.9 All medications reviewed Anemia Arch pain of left foot Atrial fibrillation Apixaban Carpal tunnel syndrome, bilateral (12/17/16) CHF (congestive heart failure) (02/23/14) Chronic anticoagulation on eliquis Chronic low back pain (07/24/15) CT-lumbar spine 2019-- Severe multilevel degenerative changes in the lumbar spine resulting in neural foraminal and central spinal canal stenosis. 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 Folate deficiency Low 12/2018; resolved 05/2019 labs; discontinued 02/05/2020 Full code status h/o elbow fx H/O fracture of nose H/O rotator cuff tear Heme + stool [facility] [place] Peptic Duodenitis (pathology report); repeat hemoccults NEG 11/2019 HTN (hypertension) Hyperlipidemia Hypertension Insulin dependent diabetes mellitus Iron deficiency [place]23/19 [place] [facility] discont supp iron & vit c 02/05/2020; Hgb stable and iron constipating; she will obtain dietarily Lipoma of arm Obstructive sleep apnea (02/23/14) Sleep Med Referral, 04/17/2019-->Very severe YARELY; CPAP ([facility]) with continuous O2 Obstructive sleep apnea treated with BiPAP YARELY (obstructive sleep apnea) Palliative care status Peptic ulcer of duodenum [facility] Path reports upper endoscopy; RX Carafate Pulmonary hypertension Risk for falls Sedentary lifestyle Spinal stenosis, lumbar Type II diabetes mellitus Vaccine counseling strongly recommended COVID-19 vaccine she is high risk for multiple reasons PCP office adding her to list of home vaccines Surgical History Biopsy, Temporal Artery (01/18/15) DR.C YOUNG Colonoscopy - [facility] (08/14/16) History of carpal tunnel repair Left- 1998 Right- 2017 History of shoulder surgery Right shoulder repair - 2004 History of total abdominal hysterectomy and bilateral salpingo-oophorectomy (~02/1999) History of total bilateral knee replacement Social History/Home Situation:Lives in a private home trailer with her son Equipment Owned/DME: FWW, CPAP Subjective: Patient states she has pain through the feet, and is a little uncomfortable but doing okay Objective: Patient lying in bed watching TV. She has IV access through right dorsum of hand, Nasal Cannula, and marino catheter. HOB is 30degrees Mental Status: Oriented to person, place and time Pain: 4/10 through both the back and the top of the feet ROM: Right Upper Extremity: WFL Left Upper Extremity: WFL Right Lower Extremity: WFL Left Lower Extremity: WFL Strength: Right Upper Extremity: Globally 4+/5 Left Upper Extremity: Globally 4+/5 Right Lower Extremity: Globally 4+/5 Left Lower Extremity: Globally 4+/5 Bed Mobility/Transfers: Patient requires min assist for transfer from supine to sit on edge of table, mainly through the legs Sit to stand: With CGA patient comes to casing runner FWW. Upon returning to the bed, assistance required from nursing to scoot patient up farther in the bed Gait: Within Room walking under CGA. She is only limited in distance by pain through the feet and the current length of her O2 tube Balance: Static Sitting: Good Dynamic Sitting: Good Static Standing: Good Dynamic Standing: Fair Special Tests: Mobility Limitations Standardized Measure [facility] AM-PAC 6 clicks Basic Mobility Inpatient Short Form: Raw Score: 17 Standardized Score: 42.13 CMS Score: 50.57% Informed Consent/Education: Patient instructed in purpose of PT consult and plan of care. ASSESSMENT: Patient is a 75 year old female with hx of fair physical health Admitted with diagnosis of CHF exacerbation Patient presents with the following impairment level findings: Assistance needed for transfers, Ambulation in tolerance, weakness Pt will benefit from skilled therapy intervention in order to remedy their functional limitations and restore patient to a more appropriate and stable functional level. Impairments are contributing to the following functional limitations: [facility] score 50.57% Patient is assessed as a Moderate Complexity Initial Evaluation based on the following: History: see above Examination: see above Presentation: Evolving Decision Making: Moderate due to AMPAC of 50.57%% Goals: Goals X1 week 1. Supine-Sit Supervision 2. Sit-Supine Supervision 3. Sit-Stand Supervision 4. Stand-Sit Supervision 5. Bed-Chair Supervision 6. Gait With Supervision and use of FF walker up to 100 feet Plan of Care/Treatment Plan: 1-2x/day, 7 days/week x 1 week. Plan of care has been reviewed with the [employer]AD providing the service under Physical Therapy direction. Initiate Physical Therapy intervention for strengthening, bed mobility, transfers, gait, stairs, balance training, use of assistive device. DISCHARGE RECOMMENDATIONS: Return to her current living situation under the care of her Son, if her mobility concerns are addressed, strength returns, and capable of achieving functional transfers and gait goals TREATMENT CODE/TIME: Moderate Complexity Initial evaluation 00077 Time of treatment 950, 25 minutes of direct patient care Blu Trimble DPT [facility]
[2020-10-20] MEDS: Normal Saline 500 ML 30 ML IV (10:15)
[2020-10-20] MEDS: Insulin Aspart 300 UNITS/3 ML PEN SC (11:59)
--- NOTE | 2020-10-20 13:58 | PGE_ITS ---
Date of Service Date of service: 10/20/20 Time of Service: 13:58 Assessment and Plan Assessment and plan (1) CHF (congestive heart failure): Status: Chronic Assessment and plan: diuresing still weight unchanged overnight, -1000 cc balance yesterday. will give dose of IV bumex today continue to follow I&O, daily weights echo ordered for wednesday last echo- Conclusion Left Ventricle : The left ventricle is grossly normal size. Mild to moderate concentric left ventricular hypertrophy. The left ventricular systolic function is normal. The left ventricular ejection fraction is within the normal range. There is normal LV segmental wall motion. Flattened septum consistent with right ventricular volume overload. The left ventricular diastolic function is normal. LVEF is 65-70%. without obstruction Right Ventricle : Right ventricle is moderately dilated. Right ventricle is mild to moderately hypokinetic. Right ventricle is mildly hypertrophied. Atria : Left atrium is mildly dilated. Right atrium is mildly dilated. Aortic Valve : The aortic valve is normal in structure, probably trileaflet, mobile. There is no aortic valvular stenosis. No aortic regurgitation is presen t. Mitral Valve : The mitral valve is normal in structure. Trace mitral to mild regurgitation. Tricuspid Valve : The tricuspid valve is normal in structure. Mild to moderate tricuspid regurgitation. RVSP is estimated to be >60mmHg Great Vessels : Dilated IVC with poor inspiration collapse is consistent with elevated right atrial pressure. Compared to echocardiogram dated 02/2014 RVSP is now significantly elevated Qualifiers: Heart failure chronicity: chronic Heart failure type: unspecified Qualified Code(s): I50.9 - Heart failure, unspecified (2) Obstructive sleep apnea treated with BiPAP: Status: Acute Assessment and plan: BiPAP will be continued in the hospital. respiratory to get her nasal mask as she is not tolerating our face mask (3) Chronic anticoagulation: Status: Chronic Assessment and plan: on apixaban for chronic atrial fibrillation. (4) Type II diabetes mellitus: Status: Chronic Assessment and plan: continue diabetic diet with sliding scale coverage ac/hs continue home medications A1C 7.4 in July 2020 blood sugars 120-143 Qualifiers: Chronic kidney disease stage: stage 3 (moderate) Diabetes mellitus complication detail: with chronic kidney disease Diabetes mellitus complication status: with kidney complications Diabetes mellitus adjunct faculty for medical terminology insulin use: with adjunct faculty for medical terminology use Qualified Code(s): E11.22 - Type 2 diabetes mellitus with diabetic chronic kidney disease; N18.3 - Chronic kidney disease, stage 3 (moderate); Z79.4 - adjunct faculty for medical terminology (current) use of insulin (5) CKD (chronic kidney disease): Status: Chronic Assessment and plan: creatinine stable and at baseline. avoid nephrotoxic drugs. Qualifiers: Chronic kidney disease stage: stage 3 (moderate) Qualified Code(s): N18.3 - Chronic kidney disease, stage 3 (moderate) (6) Discharge planning issues: Status: Acute Assessment and plan: case management following discussed with Dr Varner Subjective Subjective Patient reports: no new complaints, tolerating liquids well, tolerating a regular diet and afebrile Exam Const General: cooperative, no acute distress and not lethargic Nutritional Appearance: obese Orientation: alert, awake and oriented x3 Neck Neck: normal visual inspection and no lymphadenopathy Resp Effort & Inspection: normal respiratory effort and able to speak in complete sentences Auscultation: clear to auscultation bilaterally, no rales, no rhonchi and no wheezes Cardio Jugular venous pressure: no JVD Rate: regular rate Rhythm: abnormal rhythm Heart Sounds: S1 normal, S2 normal, no gallops and no murmurs GI Inspection: normal to inspection and distended Palpation: no hepatosplenomegaly and nontender Neuro General: patient alert, patient awake and patient oriented x3 Extrem Right lower extremity: edema Left lower extremity: edema Psych Mental Status: mental status grossly normal Objective Last Vital Signs Temp 36.2 C L 10/20/20 11:37 Pulse 61 10/20/20 11:37 Resp 20 10/20/20 11:37 BP 148/63 H 10/20/20 11:37 Pulse Ox 93 10/20/20 11:37 Laboratory Results - last 24 hr 10/20/20 08:00 Sodium 142 Potassium 4.6 Chloride 102 Carbon Dioxide 40.5 H Anion Gap -0.5 L BUN 36 H Creatinine 1.8 H Estimated GFR/1.73 m2 27.50 Glucose 121 H Calcium 9.0 Magnesium 1.6 L
[2020-10-20] MEDS: Normal Saline Flush 10 ML SYR IVP (14:24)
[2020-10-20] MEDS: Bumetanide 1 MG/4 ML VIAL 2 MG IVP (14:24)
[2020-10-20] MEDS: Atorvastatin 40 MG TAB 80 MG PO (19:36)
[2020-10-21] VITALS (8 sets, daily range): BP systolic 109–145; BP diastolic 70–74; PULSE 66–84; RESP 19–20; TEMP 36.8–37.3; O2SAT 92–94
--- NOTE | 2020-10-21 | DI.US_ITS ---
Exam(s) US EXTREMITY VENOUS BI EXAM: US EXTREMITY VENOUS BI CLINICAL HISTORY: BLE edema. TECHNIQUE: Bilateral lower extremity venous ultrasound performed using grayscale, color-flow, and sp ectral Doppler analysis. COMPARISON: No exams were available for comparison FINDINGS: Exam is somewhat limited by patient body habitus. The bilateral common femoral, femoral and poplitea l veins demonstrate normal compressibility, augmentation, and color Doppler. The posterior tibial vei ns are patent. No Smith's cyst. IMPRESSION: Right: Negative for DVT Left: Negative for DVT DATA REPOSITORY:
[2020-10-21 07:41] LABS: Abs Immature Grans 0.02 10^3/uL (0.0-0.06); Absolute Basophil Count 0.02 10^3/uL (0.0-0.2); Absolute Eosinophil Count 0.21 10^3/uL (0.0-0.7); Absolute Lymphocyte Count 1.24 10^3/uL (1.2-3.4); Absolute Monocyte Count 0.71 10^3/uL (0.1-0.8); Absolute Neutrophil Count 6.94 10^3/uL (1.2-6.7); Basophils % 0.2; Eosinophils % 2.3; HCT 37.3 % (36.0-46.0); Immature Grans % 0.2; Lymphocytes % 13.6; MCH 29.3 pg (27.0-33.0); MCHC 29.5 % (32.0-36.0); MCV 99.2 fL (80-95); Monocytes % 7.8; Neutrophils % 75.9; Nucleated RBC 0 %; Platelet Count 209 10^3/uL (130-400); RBC 3.76 10^6/uL (3.93-5.22); RDW 15.6 % (11.7-14.6); RDW-SD 56.5 fL; WBC 9.14 10^3/uL (4.4-10.8)
[2020-10-21 08:31] LABS: Anion Gap -1.9 mmol/L (3-11); BUN 36 mg/dL (7-18); CO2 42.9 mmol/L (21.0-32.0); CREATININE 1.7 mg/dL (0.55-1.02); Calcium 8.9 mg/dL (8.5-10.1); Chloride 102 mmol/L (98-107); Estimated GFR 29.38 (mL/min/1.73m2); Glucose 107 mg/dL (74-106); Magnesium 1.9 mg/dL (1.8-2.4); Potassium 4.5 mmol/L (3.5-5.1); Sodium 143 mmol/L (136-145)
[2020-10-21] MEDS: Bumetanide 1 MG TAB 2 MG PO ×2 (09:29→16:02)
[2020-10-21] MEDS: Pantoprazole 40 MG TABCR PO (09:29)
[2020-10-21] MEDS: Acetaminophen 500 MG TAB PO (09:30)
[2020-10-21] MEDS: Apixaban 5 MG TAB PO ×2 (09:31→22:50)
[2020-10-21] MEDS: amLODIPine 2.5 MG TAB PO (09:31)
[2020-10-21] MEDS: amLODIPine 5 MG TAB PO (09:31)
--- NOTE | 2020-10-21 11:06 | DI.US_ITS ---
APPROVED REPORT EXAM: Comprehensive 2D, Doppler, and color-flow Echocardiogram Patient Location: In-Patient Room/Bed: [address] Team Member: Ashely Quevedo RDCS (AE) Indications: Heart failure Other Information Study Quality: Fair. Technically limited study due to body habitus, inability to position patient. Conclusion Left Ventricle : The left ventricle is normal size. The overall left ventricular systolic function ap pears normal. There is normal left ventricular wall thickness. Regional wall motion is grossly normal . The left ventricular diastolic function is normal. LVEF is 50-55%. Right Ventricle : Right ventricle is not well visualized. Right ventricular systolic function could n ot be assessed. The RVSP is 36.6 mmHg. Atria : The left atrium size is normal. The right atrium size is normal. Mitral Valve : Mild mitral annular calcification. Mild mitral regurgitation. No evidence of mitral va lve stenosis. Great Vessels : The aortic root is normal in size. The ascending aorta is mildly dilated. Aortic arch is not well visualized. The IVC collapses <50% with inspiration. Please see remainder of study for further details. Wall motion Left Ventricle The left ventricle is normal size. The overall left ventricular systolic function appears normal. The re is normal left ventricular wall thickness. Regional wall motion is grossly normal. The left ventri cular diastolic function is normal. There is no ventricular septal defect visualized. LVEF is 50-55%. Right Ventricle Right ventricle is not well visualized. Right ventricular systolic function could not be assessed. Th e RVSP is 36.6 mmHg. Atria The left atrium size is normal. The right atrium size is normal. The interatrial septum is intact wit h no evidence for an atrial septal defect. Aortic Valve The Aortic valve is sclerotic. Aortic valve is trileaflet. There is no aortic valvular stenosis. No a ortic regurgitation is present. Mitral Valve Mild mitral annular calcification. No evidence of mitral valve stenosis. Mild mitral regurgitation. Tricuspid Valve The tricuspid valve is normal in structure. There is no tricuspid valve stenosis. Trace to mild tricu spid regurgitation. Pulmonic Valve The pulmonary valve is normal in structure. There is no pulmonic valvular stenosis. There is no pulmo suzanne valvular regurgitation. Great Vessels The aortic root is normal in size. The ascending aorta is mildly dilated. Aortic arch is not well vis ualized. The IVC collapses <50% with inspiration. Pericardium There is no pericardial effusion. 2D Dimensions IVSD d PLAX 0.94 cm F: 0.6-1.0 LV Vol A2C d MOD 89.1 mL LVPW d PLAX 1.00 cm F: 0.6 - 1.0 LV Vol A4C d MOD 105.7 mL LVID d PLAX 4.53 cm F: 3.8 - 5.2 LA vol/ BSA A4C s A-L 27.3 mL/m2 LVDs 3.10 cm F: 2.2 - 3.5 LA Area A4C s MOD 20.16 cm2 Ao Root d 2.77 cm F: 2.7 - 3.3 LV EF A4C MOD 53.6 % Ao Asc Diam d 3.51 cm F: 2.3 - 3.1 LV EF A2C MOD 52.7 % LV EF Teichholz 58.1 % LV EF Biplane MOD 53.2 % LVEF (Vo's) 53.24 % F: 54 - 74 SV 52.43 mL LV Volume 72.47 mL F: 46 - 106 SV Index 24.74 mL/m2 LV Volume Index 34.18 mL/m2 F: 29 - 61 LV Vol Biplane MOD 98.5 mL FS 30.50 % M-Mode TAPSE 1.83 cm (M/F) >1.7 LV Diastology MV E' medial 0.112 (>0.07 m/s) MV E Vmax 1.19 (0.4-1.3 m/s) LV E/e MED 10.55 (<14) MV E' lateral 0.139 (>0.1 m/s) LV E/e LAT 8.55 (<14) MV E/E' medial 10.55 MV E/E' lateral 8.56 Aortic Valve LVOT Area 2.95 cm2 AoV Area Vmax 2.44 cm2 LVOT Vmax 0.99 m/s AoV Area/ BSA (Vmax) 1.15 cm2/m2 LVOT Mean Tunde. 0.75 m/s MICHELLE Mean Tunde. 2.41 cm2 LVOT Peak Grad 3.9 mmHg MICHELLE Mean Tunde. Index 1.14 cm2/m2 LVOT Mean Grad 2.4 mmHg LVOT VTI 0.215 m LVOT Diam s 1.90 cm AoV Vmax 1.19 m/s Velocity Ratio 0.83 AoV Mean Tunde. 0.92 m/s AoV Peak Grad 5.7 mmHg LVOT SV 63.34 mL AoV Mean Grad 3.5 mmHg AoV VTI 0.255 m AoV Area VTI 2.49 cm2 AoV Area/ BSA (VTI) 1.17 cm/m2 Mitral Valve MV DT 198 (160-240 msec) MV PHT 57 msec MV Area PHT 3.83 cm2 MV VTI 0.343 m MV Area VTI 1.84 (4.0-6.0 cm2) Pulmonary Valve PV Vmax 1.26 (0.5-1.5 m/s) RVOT Peak Gr. 2.72 mmHg PV Peak Grad 6.4 mmHg RVOT Mean Gr. 1.25 mmHg PV Mean Grad 3.1 mmHg RVOT VTI 0.094 m PV VTI 0.178 m RVOT Vmax 0.82 m/s Tricuspid Valve TR Peak Grad 28.5 mmHg TR Vmax 2.67 m/s RA Pressure 8.00 mmHg RVSP (TR) 36.6 mmHg
--- NOTE | 2020-10-21 11:17 | DM INPTCON_ITS ---
Date of service: 10/21/20 Time of Service: 11:17 Diabetes Inpatient Consult DESCRIPTION/ASSESSMENT: 75 year old female admitted with CHF, with hx of sleep apnea, DM2, Heart Failure, morbid obesity and lung disease. Home DM meds: lantus 38 u HS, aspart 30 u at meals. Allergic with peanuts/tree nuts. Following CHO diet. Most recent A1C: 7.4% (July 2020) indicates excellent glycemic control. INTERVENTION: No education offered as pt busy at time of visit. Current DM home meds providing great glycemic coverage PLAN: Will follow up at later time to offer education on low sat diet/carb c ontrolled meals. Time Spent in Nutritional Counseling and Treatment: 0
--- NOTE | 2020-10-21 12:19 | PT.INTREAT ---
Date of service: 10/21/20 Time of Service: 10:05 PT Notes Visit Reasons: CHF Exacerbation Inpatient Physical Therapy Treatment Note [facility] Date: 10/21/2020 PRECAUTIONS: Fall SUBJECTIVE: Jane states that her right foot and knee are hurting today, which is making it difficult to walk. She reports that her left foot is feeling much better today. OBJECTIVE: PAIN: Patient c/o R foot and knee pain with weight bearing BED MOBILITY/TRANSFERS Sit-stand: Min A in a.m.; SBA in p.m. from recliner, Mod A from wheelchair Stand-sit: CGA with verbal cues in a.m.; SBA in p.m. GAIT Assistive Device: FWW Weight bearing: Full Assist: CGA in a.m.; SBA in p.m. Distance: 5 side steps to R + 5 side steps to L in a.m.; 10' x2 in p.m. Deviation: Pain in R foot in both a.m. and p.m.; seated rest in p.m. THEREX: Patient was instructed in several LE strengthening exercises, completed in a seated position, as per flow sheet. TOILETING: Patient toileted with assist ASSESSMENT: Patient tolerated session with complaint of increased right foot and knee pain with weight bearing activities. PLAN: Continue with global strengthening and gait training, as tolerated. TREATMENT CODE/TIME: Session 1: 25 minutes; [id number], [id number] (10:05) Session 2: 30 minutes; [id number] x2 (13:00)
[2020-10-21] MEDS: Insulin Aspart 300 UNITS/3 ML PEN SC ×2 (12:33→17:11)
--- NOTE | 2020-10-21 12:56 | INITIAL_ITS ---
- If Service Date Differs Date of service: 10/21/20 Time of Service: 12:57 Care Management Initial Assess REASON FOR HOSPITALIZATION:: CHF Exacerbation PAST MEDICAL HISTORY/PAST SURGICAL HISTORY:: Adult body mass index 50.0-59.9. All medications reviewed. Anemia. Arch pain of left foot. Atrial fibrillation. Apixaban. Carpal tunnel syndrome, bilateral (12/17/16). CHF (congestive heart failure) (02/23/14). Chronic anticoagulation. on eliquis. Chronic low back pain (07/24/15). CT-lumbar spine 2019--. Severe multilevel degenerative changes in the lumbar spine resulting in neural foraminal and central spinal canal stenosis. CKD (chronic kidney disease). Current use of insulin. Dependence on supplemental oxygen. YARELY + Pulm HTN. Dietary counseling. reviewed sodium levels in her food, how to count mg, goal of 1500 mg daily due to CHF. Edentulous. Female hirsutism. Folate deficiency. Low 12/2018; resolved 05/2019 labs; discontinued 02/05/2020. Full code status. h/o elbow fx. H/O fracture of nose. H/O rotator cuff tear. Heme + stool. [facility] [place] Upper GI Endoscopy Peptic Duodenitis (pathology report); repeat hemoccults NEG 11/2019. HTN (hypertension). Hyperlipidemia. Hypertension. Insulin dependent diabetes mellitus. Iron deficiency. EGD 05/23/[address] [facility]; discont supp iron & vit c 02/05/2020; Hgb stable and iron constipating; she will obtain dietarily. Lipoma of arm. Obstructive sleep apnea (02/23/14). Sleep Med Referral, 04/17/2019-->Very severe YARELY; CPAP ([facility]) with continuous O2. Obstructive sleep apnea treated with BiPAP. YARELY (obstructive sleep apnea). Palliative care status. Peptic ulcer of duodenum. [facility] Path reports upper endoscopy; RX Carafate. Pulmonary hypertension. Risk for falls. Sedentary lifestyle. Spinal stenosis, lumbar. Type II diabetes mellitus. Vaccine counseling. strongly recommended COVID-19 vaccine. she is high risk for multiple reasons. PCP office adding her to list of home vaccines. Surgical History . Biopsy, Temporal Artery (01/18/15). DR.C YOUNG. Colonoscopy - [facility] [place] (08/14/16). History of carpal tunnel repair. Left- 1998. Right- 2018. History of shoulder surgery. Right shoulder repair - 2004. History of total abdominal hysterectomy and bilateral salpingo- oophorectomy (~02/1999). History of total bilateral knee replacement PREVIOUS FUNCTIONAL STATUS/SOCIAL/FAMILY SUPPORTS:: Jane resides at home with her son Abdias in [place] [facility]. 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 She is independent with ADLs in the community, her son provides her transportation. She utilizes a walker and cane at home. She also has a CPAP which she reports was given to her, but she does not use. She was previously on oxygen but reports she no longer required oxygen about five years ago. CURRENT FUNCTIONAL STATUS:: Jane is pleasant and fully engaged with this medical writer. ADVANCE DIRECTIVES:: On file; son Ricco Alamo as agent. Has patient been provided with info about the portal/API?: Yes Did the patient sign up for the portal?: No CODE STATUS:: Full Code INSURANCE COVERAGE / FINANCIAL ISSUES:: Medicare, financial assistance CURRENT HOME/COMMUNITY SERVICES/EQUIPMENT:: No current services at home. FWW, cane, and CPAP which she reports she does not use. PRIMARY CARE PHYSICIAN:: Laverne Sung POTENTIAL DISCHARGE NEEDS:: Follow-up appointment with primary care scheduled prior to discharge. PATIENT/FAMILY EDUCATION NEEDS:: Discharge education, limitations, follow-up plan of care, Ask Me Three education and self-management discussion. ANTICIPATED BARRIERS TO DISCHARGE:: None identified at this time. TRANSPORTATION:: Jane will transport via private vehicle with her son. PLAN:: Jane will be discharged home when medically ready per provider. She will continue to be evaluated for discharge needs, follow up with her PCP and plan of care as prescribed. She will transport via private vehicle with her son.
--- NOTE | 2020-10-21 15:12 | CHAPLAIN ---
Jane was up in the chair when I visited. She remembered me from assisting her with an Advance Directive. She said she was worried because she has a 1:30 appointment today with Laverne Cote NP, at [facility], so we called the office and let them know she is here. Jane also asked me to make sure [facility] had a copy of her Advance Directive, so we did that, and they do. Jane relies on her son Abdias for assistance. He is the fish hatchery manager at [employer], so often sleeps during the day. He has decided not to be vaccinated and will not be able to visit Jane.
--- NOTE | 2020-10-21 17:58 | PGE_ITS ---
Date of Service Date of service: 10/21/20 Time of Service: 17:58 Assessment and Plan Assessment and plan (1) Right-sided congestive heart failure: Status: Acute Assessment and plan: Increase Bumex to 2 mg IV TID, monitoring i/o's and daily weights. Encourage BiPAp use Qualifiers: Heart failure chronicity: acute on chronic Qualified Code(s): I50.813 - Acute on chronic right heart failure (2) Pulmonary hypertension: Status: Chronic Assessment and plan: As above O2 requirement is up from baseline - will monitor - will need ambulator pulse ox prior to discharge. (3) Right ankle pain: Status: Acute Assessment and plan: DDx: arthritis, gout, hemarthrosis, injury (the patient denies this). Obtain Uric acid/CRP to r/o gout and consider imaging. Was able to bear weight on it today and walked with PT. Qualifiers: Chronicity: acute Qualified Code(s): M25.571 - Pain in right ankle and joints of right foot (4) Obstructive sleep apnea treated with BiPAP: Status: Acute Assessment and plan: continue BiPAP (5) Atrial fibrillation: Status: Chronic Assessment and plan: paroxysmal, rate controlled. No change in tx. Continue apixaban Qualifiers: Atrial fibrillation type: paroxysmal Qualified Code(s): I48.0 - Paroxysmal atrial fibrillation (6) Chronic anticoagulation: Status: Chronic Assessment and plan: Continue apixaban (7) Type II diabetes mellitus: Status: Chronic Assessment and plan: Continue SSI Qualifiers: Diabetes mellitus halfway insulin use: with intermodal customer service use Diabetes mellitus complication status: with kidney complications Diabetes mellitus complication detail: with chronic kidney disease Chronic kidney disease stage: stage 3 (moderate) Qualified Code(s): E11.22 - Type 2 diabetes mellitus with diabetic chronic kidney disease; N18.3 - Chronic kidney disease, stage 3 (moderate); Z79.4 - skilled nursing (current) use of insulin (8) CKD (chronic kidney disease): Status: Chronic Assessment and plan: Monitor Cr while diuresing Qualifiers: Chronic kidney disease stage: stage 3 (moderate) Qualified Code(s): N18.3 - Chronic kidney disease, stage 3 (moderate) (9) Discharge planning issues: Status: Acute Assessment and plan: Full code Continues to require hospitalization Consider subacute rehab Subjective Subjective Interval history since last seen: Jane Walker reports R ankle pain that she first noticed last night. Denies injury or h/o gout. Denies dizziness, chest pain, nausea. Shortness of breath is better when the oxygen is at 3.5 L than at 2, she states. Did get short of breath when working with PT today. Exam Narrative Exam Narrative: General: Pleasant Obese female, A&Ox3, sitting comfortably in a chair, on 3.5 L of O2, no dyspnea/tachypnea HEENT: EOMI, MMM Heart: irregularly irregular rhythm Lungs: rales at B bases Abdomen: soft, nontender, nondistended Extremities: BLE wrapped in kevin wraps. No obvious erythema at the ankle. Objective Last Vital Signs Temp 37.3 C 10/21/20 12:52 Pulse 66 10/21/20 16:16 Resp 19 10/21/20 12:52 BP 122/70 10/21/20 12:52 Pulse Ox 94 10/21/20 12:52 Laboratory Results - last 24 hr 10/21/20 10/21/20 07:28 07:28 WBC 9.14 RBC 3.76 L Hgb 11.0 L Hct 37.3 MCV 99.2 H MCH 29.3 MCHC 29.5 L RDW 15.6 H Plt Count 209 MPV 10.0 Immature Gran % 0.2 Neutrophils % 75.9 Lymphocytes % 13.6 Monocytes % 7.8 Eosinophils % 2.3 Basophils % 0.2 Nucleated RBC % 0 Absolute Neutrophils 6.94 H Absolute Lymphocytes 1.24 Absolute Monocytes 0.71 Absolute Eosinophils 0.21 Absolute Basophils 0.02 Sodium 143 Potassium 4.5 Chloride 102 Carbon Dioxide 42.9 H Anion Gap -1.9 L BUN 36 H Creatinine 1.7 H Estimated GFR/1.73 m2 29.38 Glucose 107 H Calcium 8.9 Magnesium 1.9 Objective Narrative Objective Narrative: Venous doppler BLE's: Right: Negative for DVT Left: Negative for DVT Echo: Left Ventricle : The left ventricle is normal size. The overall left ventricular systolic function appears normal. There is normal left ventricular wall thickness. Regional wall motion is grossly normal. The left ventricular diastolic function is normal. LVEF is 50-55%. Right Ventricle : Right ventricle is not well visualized. Right ventricular systolic function could not be assessed. The RVSP is 36.6 mmHg. Atria : The left atrium size is normal. The right atrium size is normal. Mitral Valve : Mild mitral annular calcification. Mild mitral regurgitation. No evidence of mitral valve stenosis. Great Vessels : The aortic root is normal in size. The ascending aorta is mildly dilated. Aortic arch is not well visualized. The IVC collapses <50% with inspiration. Please see remainder of study for further details.
[2020-10-21 18:28] LABS: C-Reactive Protein 5.14 mg/dL (0.0-0.3); Uric Acid 10.5 mg/dL (2.6-6.0)
[2020-10-21] MEDS: Normal Saline Flush 10 ML SYR IVP (22:50)
[2020-10-21] MEDS: Atorvastatin 40 MG TAB 80 MG PO (22:50)
[2020-10-21] MEDS: Bumetanide 1 MG/4 ML VIAL 2 MG IVP (22:51)
[2020-10-22] VITALS (9 sets, daily range): BP systolic 118–151; BP diastolic 56–83; PULSE 68–94; RESP 12–18; TEMP 36.4–37.1; O2SAT 91–96
[2020-10-22] MEDS: Acetaminophen 500 MG TAB PO (02:04)
[2020-10-22] MEDS: Normal Saline Flush 10 ML SYR IVP ×3 (06:18→21:29)
[2020-10-22] MEDS: Bumetanide 1 MG/4 ML VIAL 2 MG IVP ×3 (06:19→21:30)
--- NOTE | 2020-10-22 07:08 | OT.INIE ---
Occupational Therapy Notes Inpatient Occupational Therapy Evaluation Date: 10/22/20 Referring Doctor:Soco Varner MD OT Orders: Fall, standard, Full Precautions: Non _urgent PATIENT PROFILE/ADMITTING DIAGNOSIS: Pt was admitted through the ED with the following dx, A-fib, (R) ankle pain, (R) sided heart failure, B12 deficiency. Past Medical History: Medical History Adult body mass index 50.0-59.9 All medications reviewed Anemia Arch pain of left foot Atrial fibrillation Apixaban Carpal tunnel syndrome, bilateral (12/17/16) CHF (congestive heart failure) (02/23/14) Chronic anticoagulation on eliquis Chronic low back pain (07/24/15) CT-lumbar spine 2019-- Severe multilevel degenerative changes in the lumbar spine resulting in neural foraminal and central spinal canal stenosis. 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 Folate deficiency Low 12/2018; resolved 05/2019 labs; discontinued 02/05/2020 Full code status h/o elbow fx H/O fracture of nose H/O rotator cuff tear Heme + [place] [facility] [place] Peptic Duodenitis (pathology report); repeat hemoccults NEG 11/2019 HTN (hypertension) Hyperlipidemia Hypertension Insulin dependent diabetes mellitus Iron deficiency [place] 05[place]23[place]19 [place] [facility] [place] discont supp iron & vit c 02/05/2020; Hgb stable and iron constipating; she will obtain dietarily Lipoma of arm Obstructive sleep apnea (02/23/14) Sleep Med Referral, 04/17/2019-->Very severe YARELY; CPAP ([employer]) with continuous O2 Obstructive sleep apnea treated with BiPAP YARELY (obstructive sleep apnea) Palliative care status Peptic ulcer of duodenum [facility] [place] reports upper endoscopy; RX Carafate Pulmonary hypertension Risk for falls Sedentary lifestyle Spinal stenosis, lumbar Type II diabetes mellitus Vaccine counseling strongly recommended COVID-19 vaccine she is high risk for multiple reasons PCP office adding her to list of home vaccines Surgical History Biopsy, Temporal Artery (01/18/15) DR.C HECTOR Colonoscopy - MAC (08/14/16) History of carpal tunnel repair Left- 1998 Right- 2018 History of shoulder surgery Right shoulder repair - 2004 History of total abdominal hysterectomy and bilateral salpingo-oophorectomy (~02/1999) History of total bilateral knee replacement Social History/Home Situation: Pt lives in a private trailer with her son. She states that she is not totally (I) at baseline and he (A) her as needed. Equipment owned/DME: FWW, CPAP SUBJECTIVE: Pt was sitting in bed when OT arrived, she was agreeable to OT session and notes that she is in pain in her foot. OBJECTIVE: General Observation: Pleasant and able to answer questions appropriately. Mental Status: A&Ox4 Pain: 6/10 pain in (R) foot ROM: RUE AROM WFL L UE AROM WFL STRENGTH: RUE 4+/5 throughout globally LUE 5/5 throughout globally SENSATION: intact (B) FUNCTIONAL MOBILITY/ADLS: BATHING sitting in bed with max (A) Set up/clean up Bathing UE (I) UE face and arms, max (A) under arms, max (A) under panis Bathing LE max (A) DRESSING sitting in bed Dressing UE Min (A) [facility] gown Dressing LE NT GROOMING Sitting in bed (I) with brushing hair TOILETING NT, Ruiz in place EATING Sitting in bed, pt required (A) with opening containers but otherwise (I) BALANCE: Static sitting Good Dynamic Sitting Fair-Good SPECIAL TESTS: Daily Activity Limitations Standardized Measure [facility] AM -PAC ?6 clicks? Daily Activity Inpatient Short Form: Raw score: 18 Standardized score: 38.66 CMS score: 46.65% INFORMED CONSENT/EDUCATION: Pt instructed in purpose of OT Consult and plan of care. ASSESSMENT: Patient is a 75-year-old female referred to occupational therapy services with diagnosis of A-fib, (R) ankle pain, (R) sided heart failure, B12 deficiency. Patient presents with clinical signs and symptoms consistent with dx, as demonstrated by the following impairment level findings/functional limitations: Impairments in ADLs/IADL and leisure activities, decreased functional mobility, pain in (R) LE limiting functional (I), decreased abdominal cleaning, decreased sitting tolerance with (A) With positioning. [facility] score 18 Patient is assessed as a Moderate 13706 complexity based on the following: History: see above Examination: see functional limitations as noted above Presentation: evolving Decision Making: AMPAC score 18 GOALS Goals x1 week 1. Transfers (I) 2. Dressing sitting in chair (I) UE and min (A) LE 3. Bathing sitting in chair (I) 4. Toileting (I) 5. Eating (I) PLAN OF CARE/TREATMENT PLAN: 1x/day, 5 days/ week x 1week Initiate Occupational Therapy Services for bathing, dressing, grooming, toileting, eating, transfer training. DISCHARGE RECOMMENDATIONS OT feels that pt would be able to return home with HH services when medically cleared per MD vs. SNF if continued decreased mobility occurs limiting her functional (I) TREATMENT TIME/MINUTES/CODES 42060, [id number], 25 minutes (08:10) Azul Stoll OTR/[facility]
[2020-10-22] MEDS: amLODIPine 5 MG TAB PO (08:58)
[2020-10-22] MEDS: Apixaban 5 MG TAB PO ×2 (08:58→21:32)
[2020-10-22] MEDS: Colchicine 0.6 MG TAB PO ×2 (08:58→21:32)
[2020-10-22] MEDS: amLODIPine 2.5 MG TAB PO (08:58)
[2020-10-22] MEDS: Pantoprazole 40 MG TABCR PO (08:58)
--- NOTE | 2020-10-22 09:13 | OT.INTREAT ---
Date of service: 10/22/20 Time of Service: 08:40 Occupational Therapy Notes Occupational Therapy Inpatient Treatment Note Date: 10/22/20 PRECAUTIONS: Fall, standard, Full SUBJECTIVE: Pt was sitting in chair when OT arrived, she is agreeable to OT session and notes that her (B) feet are so sore. She states that they are going to be treating her for gout. OBJECTIVE: PAIN: 09/21 pain in (B) feet which she states may be gout BATHING: sitting in chair with max (A) set up/clean up Upper Body: (I) face, neck and mid abdomen, max (A) underarms, and under panis Lower Body: max (A) DRESSING: sitting in chair with mod vc Upper Extremity: Min (A) [facility] gown Lower Extremity: NT GROOMING: Sitting in chair (I) with brushing hair ASSESSMENT/PLAN: Pt is having pain with functional mobility which is limiting her functional (I) in ADL/IADL routines. She is receptive to performance of her ADL/IADL routines. TREATMENT CODES/TIME: 21633, 20 minutes (08:40) Azul Stoll OTR/[facility]
[2020-10-22 09:29] LABS: Anion Gap 2.5 mmol/L (3-11); BUN 47 mg/dL (7-18); CO2 41.5 mmol/L (21.0-32.0); CREATININE 1.9 mg/dL (0.55-1.02); Chloride 100 mmol/L (98-107); Estimated GFR 25.84 (mL/min/1.73m2); Glucose 108 mg/dL (74-106); Potassium 4.3 mmol/L (3.5-5.1); Sodium 144 mmol/L (136-145)
[2020-10-22] MEDS: Insulin Aspart 300 UNITS/3 ML PEN SC ×2 (11:58→17:11)
--- NOTE | 2020-10-22 14:52 | PT.INTREAT ---
Date of service: 10/22/20 Time of Service: 07:45 PT Notes Visit Reasons: CHF Exacerbation Inpatient Physical Therapy Treatment Note [facility] Date: 10/21/2020 PRECAUTIONS: Fall SUBJECTIVE: Jane reports continued pain in her right foot today, which is making it difficult to walk. She reports that her left foot is also painful today, but not as painful as the right. OBJECTIVE: PAIN: Patient c/o R foot pain with weight bearing BED MOBILITY/TRANSFERS Sit-stand: SBA Stand-sit: SBA GAIT Assistive Device: FWW Weight bearing: Full Assist: SBA Distance: 12' Deviation: Pain in B feet THEREX: Patient was instructed in a LE and resisted UE strengthening and stabilization program, completed in seated and long-sitting positions, as per flow sheet. She demonstrates global weakness. ASSESSMENT: Patient tolerated session with complaint of increased right foot pain with weight bearing activities. She continues to demonstrate global weakness with all activities. PLAN: Continue with global strengthening and gait training, as tolerated. TREATMENT CODE/TIME: Session 1: 15 minutes; 77999 (07:45) Session 2: 10 minutes; [id number] (14:20)
--- NOTE | 2020-10-22 15:07 | PHA.REVIEW ---
Pharmacy Admission Review - Admission Clinical Review (Last Reviewed 10/18/20 @ 18:06 by Teresa Johnson) Right ankle pain (Acute) Right-sided congestive heart failure (Acute) Discharge planning issues (Acute) Obstructive sleep apnea treated with BiPAP (Acute) codeine Allergy (Severe, Verified 10/18/20 17:51) Swelling/Edema furosemide [From Lasix] Allergy (Severe, Verified 10/18/20 17:51) Swelling/Edema morphine Allergy (Severe, Verified 10/18/20 17:51) Swelling/Edema peanut Allergy (Severe, Verified 10/18/20 17:51) tree nut Allergy (Severe, Verified 10/18/20 17:51) acetaminophen [From Percocet] Allergy (Intermediate, Verified 10/18/20 17:51) ITCHY adhesive tape Allergy (Intermediate, Verified 10/18/20 17:51) Skin Rash oxycodone HCl [From Percocet] Allergy (Intermediate, Verified 10/18/20 17:51) ITCHY apricot Allergy (Unknown, Uncoded 10/18/20 17:51) Resuscitation Status Full Code Height 5 ft 2.5 in Weight 105.6 kg - Renal Dosing Renal Dosing: BUN 47 mg/dL (7-18) H D 10/22/20 07:15 Creatinine 1.9 mg/dL (0.55-1.02) H 10/22/20 07:15 Medications needing adjustments: Reviewed (CrCl ~ 43.3 ml/min using adjusted body weight, no dosage adjustments at this time) - Anticoagulation Anticoagulation: Hgb 11.0 g/dL (11.2-15.7) L 10/21/20 07:28 Hct 37.3 % (36.0-46.0) 10/21/20 07:28 Plt Count 209 10^3/uL (130-400) 10/21/20 07:28 Creatinine 1.9 mg/dL (0.55-1.02) H 10/22/20 07:15 DVT Prophylaxis: N/A Therapeutic Anticoagulation: Reviewed Medications: Apixaban - Opiate Usage Evaluate Pain Scale/Pains Meds: N/A - Relevant Labs Sodium 144 mmol/L (136-145) 10/22/20 07:15 Potassium 4.3 mmol/L (3.5-5.1) 10/22/20 07:15 Chloride 100 mmol/L (98-107) 10/22/20 07:15 Magnesium 2.0 mg/dL (1.8-2.4) 10/22/20 07:15 C-Reactive Protein 5.14 mg/dL (0.0-0.3) H 10/21/20 07:28 Electrolytes, C-Reactive P, ESR: Reviewed - DM Control DM Control: Glucose 108 mg/dL (74-106) H 10/22/20 07:15 Finger Stick Blood Glucose 142 Finger Stick Blood Glucose 142 Finger Stick Blood Glucose 142 Finger Stick Blood Glucose 120 Finger Stick Blood Glucose 120 Finger Stick Blood Glucose 120 Insulin Dosing: Reviewed (Patient on detemir and sliding scale aspart.) - Heart Failure/SD Heart Failure/SD: Troponin I < 0.05 ng/mL (<0.06) 10/18/20 21:12 NT-Pro-B Natriuret Pep 3272 pg/mL (<300) H 10/18/20 17:26 EF%, ROCHELLE's, B-Blockers, Diuretics: Reviewed - BP Control BP Control: Blood Pressure 118/74 Blood Pressure 151/83 If elevated: Reviewed (Takes amlodipine 7.5 mg total daily. BP normal to elevated so far today.) - Qtc Review If Elevated: Reviewed (QTc 439 upon admission, no current dosing adjustments to make) - IV to PO Switch IV Medications: Reviewed - Home Meds Home Med List reviewed: Reviewed (Home amlodipine dosing was split, was ordered that way initially then changed to all QAM.) Relevent Home Meds Not ordered & why?: calcium/vit D., flonase (PRN), - Current meds Current Medication Order Review: Intervened (Pantoprazole administration time adjusted to 0730 based on certified medical technician time policy.) - Comments Comments/Follow Ups: Follow labs and vitals. Monitor for any changes in medications.
--- NOTE | 2020-10-22 15:13 | PDOC.CMPRO ---
Care Management Progress Note S/O: Jane was sitting up in her chair when CM met with her. She was tired, and reported doing okay. CM continues to follow. A: 75 year old female admitted to [facility] 10/18/20 for CHF Exacerbation P: Jane will likely be discharged home when medically ready per provider. She will continue to be evaluated for discharge needs to determine level of safety to return home with home health supports. Jane does not want to discharge to SNF and due to pain associated with gout is on hold for PT intervention. CM will continue to follow and support discharge planning considerations.
--- NOTE | 2020-10-22 16:36 | PGE_ITS ---
Date of Service Date of service: 10/22/20 Time of Service: 16:36 Assessment and Plan Assessment and plan (1) CHF (congestive heart failure): Status: Chronic Assessment and plan: diuresing still continue current increased dose of diuretics continue to follow I&O, daily weights echo shows LVEF is 50-55% The RVSP is 36.6 mmHg. last echo- Conclusion Left Ventricle : The left ventricle is grossly normal size. Mild to moderate concentric left ventricular hypertrophy. The left ventricular systolic function is normal. The left ventricular ejection fraction is within the normal range. There is normal LV segmental wall motion. Flattened septum consistent with right ventricular volume overload. The left ventricular diastolic function is normal. LVEF is 65-70%. without obstruction Right Ventricle : Right ventricle is moderately dilated. Right ventricle is mild to moderately hypokinetic. Right ventricle is mildly hypertrophied. Atria : Left atrium is mildly dilated. Right atrium is mildly dilated. Aortic Valve : The aortic valve is normal in structure, probably trileaflet, mobile. There is no aortic valvular stenosis. No aortic regurgitation is present. Mitral Valve : The mitral valve is normal in structure. Trace mitral to mild regurgitation. Tricuspid Valve : The tricuspid valve is normal in structure. Mild to moderate tricuspid regurgitation. RVSP is estimated to be >60mmHg Great Vessels : Dilated IVC with poor inspiration collapse is consistent with elevated right atrial pressure. Compared to echocardiogram dated 02/2014 RVSP is now significantly elevated Qualifiers: Heart failure type: unspecified Heart failure chronicity: chronic Qualified Code(s): I50.9 - Heart failure, unspecified (2) Obstructive sleep apnea treated with BiPAP: Status: Acute Assessment and plan: BiPAP will be continued in the hospital. respiratory to get her nasal mask as she is not tolerating our face mask (3) Chronic anticoagulation: Status: Chronic Assessment and plan: on apixaban for chronic atrial fibrillation. (4) Type II diabetes mellitus: Status: Chronic Assessment and plan: continue diabetic diet with sliding scale coverage ac/hs continue home medications A1C 7.4 in July 2020 blood sugars 120-143 Qualifiers: Diabetes mellitus mcc insulin use: with mcc use Diabetes mellitus complication status: with kidney complications Diabetes mellitus complication detail: with chronic kidney disease Chronic kidney disease stage: stage 3 (moderate) Qualified Code(s): E11.22 - Type 2 diabetes mellitus with diabetic chronic kidney disease; N18.3 - Chronic kidney disease, stage 3 (moderate); Z79.4 - [facility] (current) use of insulin (5) CKD (chronic kidney disease): Status: Chronic Assessment and plan: creatinine stable and at baseline. avoid nephrotoxic drugs. Qualifiers: Chronic kidney disease stage: stage 3 (moderate) Qualified Code(s): N18.3 - Chronic kidney disease, stage 3 (moderate) (6) Discharge planning issues: Status: Acute Assessment and plan: case management following discussed with Dr Varner Subjective Subjective Patient reports: no new complaints, feels better, tolerating liquids well, tolerating a regular diet and afebrile; denies shortness of breath Interval history since last seen: c/o right great toe pain. Exam Const General: cooperative, no acute distress and not lethargic Nutritional Appearance: obese Orientation: alert, awake and oriented x3 Neck Neck: normal visual inspection and no lymphadenopathy Resp Effort & Inspection: normal respiratory effort and able to speak in complete sentences Auscultation: clear to auscultation bilaterally, no rales, no rhonchi and no wheezes Cardio Jugular venous pressure: no JVD Rate: regular rate Rhythm: abnormal rhythm Heart Sounds: S1 normal, S2 normal, no gallops and no murmurs GI Inspection: normal to inspection and distended Palpation: no hepatosplenomegaly and nontender Neuro General: patient alert, patient awake and patient oriented x3 Extrem Right lower extremity: edema Left lower extremity: edema Psych Mental Status: mental status grossly normal Objective Last Vital Signs Temp 36.7 C 10/22/20 16:18 Pulse 89 10/22/20 16:18 Resp 18 10/22/20 16:18 BP 123/56 L 10/22/20 16:18 Pulse Ox 96 10/22/20 16:18 Laboratory Results - last 24 hr 10/21/20 10/22/20 07:28 07:15 Sodium 144 Potassium 4.3 Chloride 100 Carbon Dioxide 41.5 H Anion Gap 2.5 L BUN 47 H D Creatinine 1.9 H Estimated GFR/1.73 m2 25.84 Glucose 108 H Uric Acid 10.5 H Calcium 9.0 Magnesium 2.0 C-Reactive Protein 5.14 H
[2020-10-22] MEDS: Atorvastatin 40 MG TAB 80 MG PO (21:32)
[2020-10-23] VITALS (7 sets, daily range): BP systolic 132–147; BP diastolic 62–81; PULSE 67–94; RESP 16–19; TEMP 36.2–36.7; O2SAT 91–94
[2020-10-23] MEDS: Bumetanide 1 MG/4 ML VIAL 2 MG IVP (06:44)
[2020-10-23] MEDS: Normal Saline Flush 10 ML SYR IVP (06:44)
[2020-10-23] MEDS: Colchicine 0.6 MG TAB PO ×2 (07:33→19:53)
[2020-10-23] MEDS: amLODIPine 2.5 MG TAB PO (07:34)
[2020-10-23] MEDS: amLODIPine 5 MG TAB PO (07:34)
[2020-10-23] MEDS: Apixaban 5 MG TAB PO ×2 (07:34→19:53)
[2020-10-23] MEDS: Pantoprazole 40 MG TABCR PO (07:35)
--- NOTE | 2020-10-23 10:01 | OT.INTREAT ---
Date of service: 10/23/20 Time of Service: 08:35 Occupational Therapy Notes Occupational Therapy Inpatient Treatment Note Date: 10/23/20 PRECAUTIONS: Fall, standard, Full SUBJECTIVE: Pt was sitting in chair when OT arrived, she is agreeable to OT session and notes that she was able to put some weight on her (B) feet this morning and transfer to her chair. OBJECTIVE: PAIN: slight pain but not limiting to functional mobility. Functional mobility- sit-stand Mod (A) Stand-sit Mod (A) Chair-commode CGA FWW Commode-chair CGA FWW BATHING: sitting in chair with max (A) set up/clean up Upper Body: (I) face, neck and mid abdomen, max (A) underarms, and under panis Lower Body: (I) (B) LE to knees, max (A) (B) feet DRESSING: sitting in chair with mod vc Upper Extremity: Min (A) don and doffing hospital gown Lower Extremity: max (A) don and doffing (B) socks due to gout pain. GROOMING: Sitting in chair (I) with brushing hair ASSESSMENT/PLAN: Pt is having pain with functional mobility which is limiting her functional (I) in ADL/IADL routines. She is receptive to performance of her ADL/IADL routines and demonstrating increased functional (I). TREATMENT CODES/TIME: 42219m1, 25 minutes (08:35) Azul Stoll OTR/[facility]
--- NOTE | 2020-10-23 11:23 | W.PM.PROGNOT ---
Date of Service Date of service: 10/23/20 Time of Service: 11:24 Assessment and Plan Assessment and plan (1) Gout attack: Status: Acute Assessment and plan: exacerbated by diuresis. responding to colchicine, stating she can now put her sneakers on. (2) CHF (congestive heart failure): Status: Chronic Assessment and plan: diuresing well and now BUN and creatinine rising. will change to oral diuretic still increased from home dose follow kidney function and electrolytes closely continue to follow I&O, daily weights echo shows LVEF is 50-55% The RVSP is 36.6 mmHg. discontinue marino catheter Qualifiers: Heart failure type: unspecified Heart failure chronicity: chronic Qualified Code(s): I50.9 - Heart failure, unspecified (3) Obstructive sleep apnea treated with BiPAP: Status: Acute Assessment and plan: resume home therapy at discharge. follows outpatient. (4) Chronic anticoagulation: Status: Chronic Assessment and plan: on apixaban for chronic atrial fibrillation. rate controlled (5) Type II diabetes mellitus: Status: Chronic Assessment and plan: continue diabetic diet with sliding scale coverage ac/hs continue home medications A1C 7.4 in July 2020 blood sugars 90-145 Qualifiers: Diabetes mellitus retirement insulin use: with retirement use Diabetes mellitus complication status: with kidney complications Diabetes mellitus complication detail: with chronic kidney disease Chronic kidney disease stage: stage 3 (moderate) Qualified Code(s): E11.22 - Type 2 diabetes mellitus with diabetic chronic kidney disease; N18.3 - Chronic kidney disease, stage 3 (moderate); Z79.4 - terminal clerk (current) use of insulin (6) CKD (chronic kidney disease): Status: Chronic Assessment and plan: creatinine stable and at baseline. avoid nephrotoxic drugs. Qualifiers: Chronic kidney disease stage: stage 3 (moderate) Qualified Code(s): N18.3 - Chronic kidney disease, stage 3 (moderate) (7) Discharge planning issues: Status: Acute Assessment and plan: case management following anticipate a discharge to home 1-2 days if remains medically stable. will need new home health nursing PT/OT. discussed with Dr Varner Subjective Subjective Patient reports: no new complaints, feels better, pain is less, tolerating liquids well, tolerating a regular diet and afebrile; denies shortness of breath Exam Const General: cooperative, no acute distress and not lethargic Nutritional Appearance: obese Orientation: alert, awake and oriented x3 Neck Neck: normal visual inspection and no lymphadenopathy Resp Effort & Inspection: normal respiratory effort and able to speak in complete sentences Auscultation: clear to auscultation bilaterally, no rales, no rhonchi and no wheezes Cardio Jugular venous pressure: no JVD Rate: regular rate Rhythm: abnormal rhythm Heart Sounds: S1 normal, S2 normal, no gallops and no murmurs GI Inspection: normal to inspection and distended Palpation: no hepatosplenomegaly and nontender Neuro General: patient alert, patient awake and patient oriented x3 Extrem Right lower extremity: edema Left lower extremity: edema Psych Mental Status: mental status grossly normal Objective Last Vital Signs Temp 36.2 C L 10/23/20 07:53 Pulse 79 10/23/20 09:47 Resp 16 10/23/20 07:53 BP 147/62 H 10/23/20 09:47 Pulse Ox 92 10/23/20 09:47
[2020-10-23] MEDS: Insulin Aspart 300 UNITS/3 ML PEN SC ×2 (11:52→16:46)
--- NOTE | 2020-10-23 12:31 | PT.INTREAT ---
Date of service: 10/23/20 Time of Service: 09:50 PT Notes Visit Reasons: CHF Exacerbation Inpatient Physical Therapy Treatment Note [facility] Date: 10/23/2020 PRECAUTIONS: Fall SUBJECTIVE: Jane reports that she has less foot pain today, that she was able to transfer from bed to chair without the STEDY lift this morning. She is agreeable to participating in PT. OBJECTIVE: PAIN: No c/o pain BED MOBILITY/TRANSFERS Sit-stand: SBA Stand-sit: SBA GAIT Assistive Device: FWW Weight bearing: Full Assist: SBA Distance: 25' + 2x3' in a.m.; 8' + 12' in p.m. Deviation: SOB, increased fatigue, no c/o pain (in a.m.), pain in R great toe (in p.m.) THEREX: Patient was instructed in a LE and resisted UE strengthening and stabilization program, completed in a supine position, as per flow sheet. She demonstrates global weakness and SOB with all activities. STAIRS: Up/down 3x4 and 2x6 using B rails and a step-to pattern with SBA TOILETING: Patient toileted with assist ASSESSMENT: Patient tolerated session without complaint of foot pain with weight bearing activities, although with SOB with gait and stair training. She continues to demonstrate global weakness with all activities. PLAN: Continue with global strengthening, general conditioning, and gait training, as tolerated. TREATMENT CODE/TIME: Session 1: 30 minutes; 19854 x2 (09:20) Session 2: 30 minutes; [id number], [id number] (13:40)
--- NOTE | 2020-10-23 16:01 | NUR.NOTE ---
Nursing Note: Ruiz catheter removed at 1400hr, 10/23/20, patient to be monitored for ability to void and empty the bladder
--- NOTE | 2020-10-23 16:07 | CHAPLAIN ---
Jane said she's now dealing with gout too, but today she was able to put her sneakers on and walk a little. She seemed pleased with that progress.
[2020-10-23] MEDS: Bumetanide 1 MG TAB 2 MG PO (16:45)
--- NOTE | 2020-10-23 17:35 | CMPROGNOTE_ITS ---
- If Service Date Differs Date of service: 10/23/20 Time of Service: 17:41 Care Management Progress Note S/O: Jane was sitting up in her chair when CM met with her. She reported doing much better and ambulating with PT today. She reviewed current home financial stressors but declined additional supports stating her son made too much money to be eligible. CM offered [facility], MOW, and SASH all of which Jane declined. CM continues to follow. A: 75 year old female admitted to [facility] 10/18/20 for CHF Exacerbation P: Jane will likely be discharged home when medically ready per provider with new home health supports. If SNF recommended anticipate she will enter short term SWB1 at [facility] as she is not agreeable to SNF. Jane reports per her discussion with the provider, she anticipates leaving Wednesday afternoon when her son can transport her. CM will continue to follow and support discharge planning considerations.
[2020-10-23] MEDS: Atorvastatin 40 MG TAB 80 MG PO (19:52)
[2020-10-24] VITALS (7 sets, daily range): BP systolic 114–134; BP diastolic 65–72; PULSE 60–93; RESP 16–20; TEMP 36.3–37.2; O2SAT 91–96
[2020-10-24] MEDS: amLODIPine 2.5 MG TAB PO (07:31)
[2020-10-24] MEDS: Apixaban 5 MG TAB PO ×2 (07:32→20:13)
[2020-10-24] MEDS: Colchicine 0.6 MG TAB PO (07:32)
[2020-10-24] MEDS: amLODIPine 5 MG TAB PO (07:32)
[2020-10-24] MEDS: Bumetanide 1 MG TAB 2 MG PO ×2 (07:32→16:43)
[2020-10-24 07:33] LABS: Abs Immature Grans 0.02 10^3/uL (0.0-0.06); Absolute Basophil Count 0.05 10^3/uL (0.0-0.2); Absolute Eosinophil Count 0.37 10^3/uL (0.0-0.7); Absolute Lymphocyte Count 1.81 10^3/uL (1.2-3.4); Absolute Monocyte Count 0.64 10^3/uL (0.1-0.8); Absolute Neutrophil Count 4.31 10^3/uL (1.2-6.7); Basophils % 0.7; Eosinophils % 5.1; HCT 38.7 % (36.0-46.0); HGB 11.4 g/dL (11.2-15.7); Immature Grans % 0.3; Lymphocytes % 25.1; MCH 28.9 pg (27.0-33.0); MCHC 29.5 % (32.0-36.0); MPV 10.3 fL (8.0-11.0); Monocytes % 8.9; Neutrophils % 59.9; Nucleated RBC 0 %; Platelet Count 266 10^3/uL (130-400); RBC 3.95 10^6/uL (3.93-5.22); RDW 15.4 % (11.7-14.6)
[2020-10-24] MEDS: Pantoprazole 40 MG TABCR PO (07:33)
[2020-10-24 07:45] LABS: Anion Gap -1.3 mmol/L (3-11); BUN 54 mg/dL (7-18); CO2 42.3 mmol/L (21.0-32.0); Chloride 102 mmol/L (98-107); Estimated GFR 24.36 (mL/min/1.73m2); Glucose 115 mg/dL (74-106); Potassium 4.3 mmol/L (3.5-5.1); Sodium 143 mmol/L (136-145)
--- NOTE | 2020-10-24 08:07 | W.PM.PROGNOT ---
Date of Service Date of service: 10/24/20 Time of Service: 08:07 Assessment and Plan Assessment and plan (1) Gout attack: Status: Resolved Assessment and plan: exacerbated by diuresis. resolved on colchicine, stating she can now put her sneakers on. (2) CHF (congestive heart failure): Status: Chronic Assessment and plan: diuresing well and now BUN and creatinine rising. will change to oral diuretic still increased from home dose follow kidney function and electrolytes closely continue to follow I&O, daily weights echo shows LVEF is 50-55% The RVSP is 36.6 mmHg. discontinue marino catheter Qualifiers: Heart failure chronicity: chronic Heart failure type: unspecified Qualified Code(s): I50.9 - Heart failure, unspecified (3) Obstructive sleep apnea treated with BiPAP: Status: Acute Assessment and plan: resume home therapy at discharge. follows outpatient. (4) Chronic anticoagulation: Status: Chronic Assessment and plan: on apixaban for chronic atrial fibrillation. rate controlled (5) Type II diabetes mellitus: Status: Chronic Assessment and plan: continue diabetic diet with sliding scale coverage ac/hs continue home medications A1C 7.4 in July 2020 blood sugars 90-145 Qualifiers: Chronic kidney disease stage: stage 3 (moderate) Diabetes mellitus complication detail: with chronic kidney disease Diabetes mellitus complication status: with kidney complications Diabetes mellitus termination clerk insulin use: with termination clerk use Qualified Code(s): E11.22 - Type 2 diabetes mellitus with diabetic chronic kidney disease; N18.3 - Chronic kidney disease, stage 3 (moderate); Z79.4 - watermelon inspector (current) use of insulin (6) CKD (chronic kidney disease): Status: Chronic Assessment and plan: creatinine stable and at baseline. avoid nephrotoxic drugs. Qualifiers: Chronic kidney disease stage: stage 3 (moderate) Qualified Code(s): N18.3 - Chronic kidney disease, stage 3 (moderate) (7) Discharge planning issues: Status: Acute Assessment and plan: case management following anticipate a discharge to home 1-2 days if remains medically stable. will need new home health nursing PT/OT. discussed with Dr Varner Subjective Subjective Patient reports: no new complaints, feels better, tolerating liquids well, tolerating a regular diet, voiding w/o difficulty and afebrile; denies shortness of breath Exam Const General: cooperative, no acute distress and not lethargic Nutritional Appearance: obese Orientation: alert, awake and oriented x3 Neck Neck: normal visual inspection and no lymphadenopathy Resp Effort & Inspection: normal respiratory effort and able to speak in complete sentences Auscultation: clear to auscultation bilaterally, no rales, no rhonchi and no wheezes Cardio Jugular venous pressure: no JVD Rate: regular rate Rhythm: abnormal rhythm Heart Sounds: S1 normal, S2 normal, no gallops and no murmurs GI Inspection: normal to inspection and distended Palpation: no hepatosplenomegaly and nontender Neuro General: patient alert, patient awake and patient oriented x3 Extrem Right lower extremity: edema Left lower extremity: edema Psych Mental Status: mental status grossly normal Objective Last Vital Signs Temp 36.5 C 10/24/20 07:29 Pulse 60 10/24/20 07:29 Resp 16 10/24/20 07:29 BP 114/72 10/24/20 07:29 Pulse Ox 93 10/24/20 07:29 Laboratory Results - last 24 hr 10/24/20 10/24/20 06:40 07:08 WBC 7.20 RBC 3.95 Hgb 11.4 Hct 38.7 MCV 98.0 H MCH 28.9 MCHC 29.5 L RDW 15.4 H Plt Count 266 MPV 10.3 Immature Gran % 0.3 Neutrophils % 59.9 Lymphocytes % 25.1 Monocytes % 8.9 Eosinophils % 5.1 Basophils % 0.7 Nucleated RBC % 0 Absolute Neutrophils 4.31 Absolute Lymphocytes 1.81 Absolute Monocytes 0.64 Absolute Eosinophils 0.37 Absolute Basophils 0.05 Sodium 143 Potassium 4.3 Chloride 102 Carbon Dioxide 42.3 H Anion Gap -1.3 L BUN 54 H Creatinine 2.0 H Estimated GFR/1.73 m2 24.36 Glucose 115 H Calcium 9.0
--- NOTE | 2020-10-24 09:33 | PDOC.CMPRO ---
- If Service Date Differs Date of service: 10/24/20 Time of Service: 17:22 Care Management Progress Note S/O: Jane continues to make gains toward discharge, no change to overall plan at this time. CM continues to follow. A: 75 year old female admitted to [facility] 10/18/20 for CHF Exacerbation P: Jane will likely be discharged home when medically ready per provider with new home health supports. Jane reports per her discussion with the provider, she anticipates leaving Wednesday afternoon when her son can transport her. CM will continue to follow and support discharge planning considerations.
--- NOTE | 2020-10-24 10:36 | PT.INTREAT ---
Date of service: 10/24/20 Time of Service: 09:35 PT Notes Visit Reasons: CHF Exacerbation Inpatient Physical Therapy Treatment Note [facility] Date: 10/24/2020 PRECAUTIONS: Fall SUBJECTIVE: Jane reports that she has less foot pain today, that she was able to transfer from bed to chair without the STEDY lift this morning. She is agreeable to participating in PT. OBJECTIVE: PAIN: No c/o pain BED MOBILITY/TRANSFERS Sit-stand: S Stand-sit: S GAIT Assistive Device: FWW Weight bearing: Full Assist: S Distance: 50' + 25' in a.m.; 30' in p.m. Deviation: SOB, increased fatigue, slow pacing (although increased versus yesterday) THEREX: Patient was instructed in a LE and resisted UE strengthening and stabilization program completed in a seated position in a.m., and a LE strengthening program completed in a standing position in p.m., as per flow sheet. She demonstrates global weakness and SOB with all activities. TOILETING: Patient toileted with assist ASSESSMENT: Patient tolerated session without complaint of foot pain with weight bearing activities, although with SOB with gait training and ther ex. She continues to demonstrate significant deconditioning with all activities. PLAN: Continue with global strengthening, general conditioning, and gait training, as tolerated. TREATMENT CODE/TIME: Session 1: 15 minutes; [id number] (09:35) Session 2: 15 minutes; [id number] (13:20)
[2020-10-24] MEDS: Acetaminophen 500 MG TAB PO (11:04)
[2020-10-24] MEDS: Insulin Aspart 300 UNITS/3 ML PEN SC (13:06)
[2020-10-24] MEDS: Atorvastatin 40 MG TAB 80 MG PO (20:12)
[2020-10-24] MEDS: Normal Saline Flush 10 ML SYR IVP (22:15)
[2020-10-25 03:23] VITALS: BP 130/64; PULSE 67; RESP 16; TEMP 36.7; O2SAT 92
[2020-10-25 03:26] VITALS: O2SAT 94
[2020-10-25] MEDS: Bumetanide 1 MG TAB 2 MG PO (07:33)
[2020-10-25] MEDS: Pantoprazole 40 MG TABCR PO (07:36)
[2020-10-25] MEDS: amLODIPine 5 MG TAB PO (07:36)
[2020-10-25] MEDS: Apixaban 5 MG TAB PO (07:36)
[2020-10-25] MEDS: amLODIPine 2.5 MG TAB PO (07:36)
[2020-10-25 09:34] VITALS: PULSE 69; RESP 14; TEMP 36; O2SAT 94
[2020-10-25 09:56] LABS: Anion Gap 1.3 mmol/L (3-11); BUN 54 mg/dL (7-18); CO2 39.7 mmol/L (21.0-32.0); CREATININE 2.1 mg/dL (0.55-1.02); Calcium 9.1 mg/dL (8.5-10.1); Chloride 100 mmol/L (98-107); Estimated GFR 23.02 (mL/min/1.73m2); Glucose 136 mg/dL (74-106); Potassium 3.9 mmol/L (3.5-5.1); Sodium 141 mmol/L (136-145)
[2020-10-25 10:24] VITALS: PULSE 91; RESP 20; O2SAT 89; O2SAT 92
--- NOTE | 2020-10-25 10:58 | PT.INTREAT ---
Date of service: 10/25/20 Time of Service: 09:45 PT Notes Visit Reasons: CHF Exacerbation Inpatient Physical Therapy Treatment Note [facility] Date: 10/25/2020 PRECAUTIONS: Fall SUBJECTIVE: Jane is agreeable to participating in PT. She reports continued R arm pain from the blood pressure cuff during a blood pressure reading yesterday midday. OBJECTIVE: PAIN: Patient c/o pain in L calf, R upper arm pain BED MOBILITY/TRANSFERS Sit-stand: I Stand-sit: I GAIT Assistive Device: FWW Weight bearing: Full Assist: S Distance: 100' x2 Deviation: SOB, increased fatigue, standing rest x3, seated rest x1 VITALS: Session was completed in collaboration with RT, please see their note for specific vital sign details. TOILETING: Patient toileted with assist ASSESSMENT: Patient tolerated session with complaint of L calf and R upper arm pain. She continues to demonstrate significant deconditioning with all activities, although was able to tolerate a progression in gait distance today. PLAN: Patient to discharge to home later today, per provider, with PT follow up. TREATMENT CODE/TIME: 30 minutes; [id number] x2 (09:45)
[2020-10-25] MEDS: Insulin Aspart 300 UNITS/3 ML PEN SC (12:07)
--- NOTE | 2020-10-25 12:44 | DSE_ITS ---
Date of service: 10/25/20 Time of Service: 12:44 DS: Diagnosis Discharge Diagnosis (1) Gout attack: Status: Resolved (2) CHF (congestive heart failure): Status: Chronic (3) Obstructive sleep apnea treated with BiPAP: Status: Acute (4) Chronic anticoagulation: Status: Chronic (5) Type II diabetes mellitus: Status: Chronic (6) CKD (chronic kidney disease): Status: Chronic Discharge Plan Disposition Patient Disposition: HOME W/HOME HEALTH SERVICE Condition: Stable Discharge Details Reason For Visit: CHF Exacerbation Admit Date/Time: 10/18/20 19:26 Admit Provider: Kiran Scott Attending Provider: Kiran Scott Primary Care Provider: Laverne Sung Hospital Course Hospital Course: this is a 75 year old female who presented to the ED for shortness of breath. Her work up in the ED consistent with fluid overload, troponin trended negative, no acute st segment changes. She was admitted to med/surg for diureses and further monitoring. her echo showed: Left Ventricle : The left ventricle is normal size. The overall left ventricular systolic function appears normal. There is normal left ventricular wall thickne ss. Regional wall motion is grossly normal. The left ventricular diastolic function is normal. LVEF is 50-55%. Right Ventricle : Right ventricle is not well visualized. Right ventricular systolic function could not be assessed. The RVSP is 36.6 mmHg. Atria : The left atrium size is normal. The right atrium size is normal. Mitral Valve : Mild mitral annular calcification. Mild mitral regurgitation. No evidence of mitral valve stenosis. Great Vessels : The aortic root is normal in size. The ascending aorta is mildly dilated. Aortic arch is not well visualized. The IVC collapses <50% with inspira tion. She also had bilateral lower extremity ultrasounds for edema which were negative for DVT. Her hospital course was complicated by gout flare, treated with colchicine with resolution of symptoms. her kidney function started to rise so diuresis was cut back and she will be discharged on her home doses of all her medication. she will be referred to home health services for nursing pt/ot with repeat labs on Wednesday, defer further medication adjustments to outpatient team. discharge discussed with Dr Varner Home Meds and New Rx's Prescriptions: Continued (DME) Oxygen Tank See Rx Instructions .ROUTE .MEDSUPPLY Qty: 1 RF: 0 fluticasone propionate 50 mcg/actuation spray,suspension 1 spray NS DAILY PRN (Reason: allergy symptoms) Qty: 15.8 RF: 0 acetaminophen [Tylenol Extra Strength] 500 mg tablet 500 mg PO Q6H PRNRF: 0 bumetanide 1 mg tablet 1 mg PO BID Qty: 180 RF: 3 amlodipine 2.5 mg tablet 2.5 mg PO .daily in AM Qty: 90 RF: 3 amlodipine 5 mg tablet 5 mg PO HS Qty: 90 RF: 3 Levemir FlexTouch U-100 Insuln 100 unit/mL (3 mL) insulin pen 38 unit subcut .QHS Qty: 60 RF: 3 (DME) pen needle, diabetic [BD Ultra-Fine Mini Pen Needle] 31 gauge x 3/16 needle See Rx Instructions .ROUTE .MEDSUPPLY Qty: 100 RF: 6 (DME) blood sugar diagnostic Strip See Rx Instructions .ROUTE .MEDSUPPLY Qty: 300 RF: 3 atorvastatin 80 mg tablet 80 mg PO QHS Qty: 90 RF: 3 insulin aspart U-100 [Novolog Flexpen U-100 Insulin] 100 unit/mL (3 mL) insulin pen See Rx Instructions subcut AC MDD 30 units Qty: 90 RF: 3 (DME) lancets [OneTouch Delica Lancets] 33 gauge misc See Rx Instructions .ROUTE .MEDSUPPLY Qty: 300 RF: 3 pantoprazole [Protonix] 40 mg tablet,delayed release (DR/EC) 40 mg PO DAILY Qty: 90 RF: 3 Eliquis 5 mg tablet 5 mg PO BID Qty: 180 RF: 3 docusate sodium [Colace] 100 mg Capsule 100 mg PO TID PRN PRNQty: 0 RF: 0 Calcium 600 with Vitamin D3 600 mg(1,500mg) -400 unit Tablet,Chewable 1 tab PO BID RF: 0 ipratropium-albuterol 0.5 mg-3 mg(2.5 mg base)/3 mL solution for nebulization 3 ml IH Q6H PRN (Reason: shortness of breath/wheezing) Qty: 180 RF: 0 Discharge Instructions Instructions: Heart Failure (DC), Low Purine Diet (DC), Gout (ED) Additional Instructions: You have been treated for gout and no longer need treatment for acute flare at discharge. please discuss further outpatient management with your doctor at follow up appointment. This was likely caused from aggressive diuresis and may not need further treatment. Your kidney functions have been elevating d/t diuresis which now has returned to your home dosing. you will have your labs recheck next week to see that this is improving. drink 6-8 glasses of water daily to stay well hydrated. Home health services have been ordered for further management and evaluation at home. You should continue to wear your oxygen as directed. Your echo shows EF of 50-55%. Stand Alone Forms: Nursing Discharge Form Referrals: Laverne Sung NP [Primary Care Provider] - 10/28/20 2:15 pm Activity:: Activity as Tolerated Equipment/Supplies:: No Equipment Needed Diet:: Carb Counting Discharge Orders Discharge Orders: Discharge Order (Routine); Ordered 10/25/20 Ordered By: Myah Victor Other Ambulatory Orders: Basic Metabolic Panel (Routine) Timeframe: 20201028 Location: None Selected Ordered By: Myah Victor Discharge Data Discharge Date/Time-TO BE ENTERED AT DEPARTURE: 10/25/20 13:35 DS: Summary Time Spent with Patient providing and/or coordinating discharge services: Greater than 30 minutes Status at Discharge Functional status at discharge: uses cane/walker Overall status at discharge: patient is progressing back to baseline Mental Status: mental status grossly normal Speech and Movement: speech and movement normal Mood: congruent mood Affect: normal affect Exam Const General: cooperative, no acute distress and not lethargic Nutritional Appearance: obese Orientation: alert, awake and oriented x3 Neck Neck: normal visual inspection and no lymphadenopathy Resp Effort & Inspection: normal respiratory effort and able to speak in complete sentences Auscultation: clear to auscultation bilaterally, no rales, no rhonchi and no wheezes Cardio Jugular venous pressure: no JVD Rate: regular rate Rhythm: abnormal rhythm Heart Sounds: S1 normal, S2 normal, no gallops and no murmurs GI Inspection: normal to inspection and distended Palpation: no hepatosplenomegaly and nontender Neuro General: patient alert, patient awake and patient oriented x3 Extrem Right lower extremity: edema Left lower extremity: edema Psych Mental Status: mental status grossly normal Speech and Movement: speech and movement normal Mood: congruent mood Affect: normal affect DS: Data Vitals/I&O Vitals and I&O: Vital Signs Temperature 36 C L 10/25/20 09:34 Temperature Source Skin 10/25/20 03:23 Pulse 69 10/25/20 09:34 Pulse Rhythm Regular 10/25/20 09:34 Pulse 86 10/18/20 20:30 Respiratory Rate 14 10/25/20 09:34 Respiratory Effort 10/25/20 09:34 Respiratory Depth Normal 10/25/20 09:34 Respiratory Pattern Normal 10/25/20 09:34 Blood Pressure 130/64 10/25/20 03:23 Blood Pressure Mean 76 10/18/20 20:16 Pulse Oximetry 94 10/25/20 09:34 Oxygen Delivery Method Nasal Cannula 10/25/20 09:34 Oxygen Flow Rate 3 10/25/20 09:34 Fraction of Inspired Oxygen (FIO2) 30 10/22/20 07:52 Pain Level 2 10/25/20 09:34 Comment 10/20/20 03:26 Intake & Output 10/24/20 10/25/20 10/25/20 23:59 11:59 23:59 Intake Total 610 / 620 280 / 280 Output Total 900 / 1850 Balance -290 / -1230 280 / 280 Intake: IV Oral 600 / 600 280 / 280 Output: Urine 900 / 1850 Other: Urine Color Yellow Urine Appearance Clear Clear Urine Odor Normal Stool Characteristics Soft Formed Voiding Methods Bedside Commode Data Completed and Pending Labs on day of discharge: Labs from last 24 hours 10/25/20 09:38 Sodium 141 Potassium 3.9 Chloride 100 Carbon Dioxide 39.7 H Anion Gap 1.3 L BUN 54 H Creatinine 2.1 H Estimated GFR/1.73 m2 23.02 Glucose 136 H Calcium 9.1 PFS Medical History Adult body mass index 50.0-59.9 All medications reviewed Anemia Arch pain of left foot Atrial fibrillation Apixaban Carpal tunnel syndrome, bilateral (12/17/16) CHF (congestive heart failure) (02/23/14) Chronic anticoagulation on eliquis Chronic low back pain (07/24/15) CT-lumbar spine 2019-- Severe multilevel degenerative changes in the lumbar spine resulting in neural foraminal and central spinal canal stenosis. 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 Folate deficiency Low 12/2018; resolved 05/2019 labs; discontinued 02/05/2020 Full code status h/o elbow fx H/O fracture of nose H/O rotator cuff tear Heme + stool [facility] [place] Upper GI Endoscopy Peptic Duodenitis (pathology report); repeat hemoccults NEG 11/2019 HTN (hypertension) Hyperlipidemia Hypertension Insulin dependent diabetes mellitus Iron deficiency EGD 05/23/19 at [facility]; discont supp iron & vit c 02/05/2020; Hgb stable and iron constipating; she will obtain dietarily Lipoma of arm Obstructive sleep apnea (02/23/14) Sleep Med Referral, 04/17/2019-->Very severe YARELY; CPAP ([facility]) with continuous O2 Obstructive sleep apnea treated with BiPAP YARELY (obstructive sleep apnea) Palliative care status Peptic ulcer of duodenum [facility] Path reports upper endoscopy; RX Carafate Pulmonary hypertension Risk for falls Sedentary lifestyle Spinal stenosis, lumbar Type II diabetes mellitus Vaccine counseling strongly recommended COVID-19 vaccine she is high risk for multiple reasons PCP office adding her to list of home vaccines Surgical History Biopsy, Temporal Artery (01/18/15) DR.C YOUNG Colonoscopy - MAC (08/14/16) History of carpal tunnel repair Left- 1998 Right- 2017 History of shoulder surgery Right shoulder repair - 2004 History of total abdominal hysterectomy and bilateral salpingo-oophorectomy (~02/1999) History of total bilateral knee replacement Family History Mother Heart disease Father Heart disease Lung cancer Brother Heart disease AAA (abdominal aortic aneurysm, ruptured) Brother Obesity Son No problems noted. Daughter Stillborn, abnormal Daughter No problems noted. Social History Smoking/Tobacco Use Status: Never Second Hand Exposure: Yes Smoking risk assessment performed?: Yes Alcohol Intake: former Details: never drank heavily but her husbands did Drug use: Never Substance use type: does not use Adopted: No Caregiver/Support person: Yes Foster care: No Household members: children Housing: house Number of Children: 2 number of grandchildren: 8 Communication Needs: Corrective Lenses Education Level: middle school Do you need help understanding health information?: Always current occupation: Retired- [employer] Pets and animals: Yes Pets and animals: cat(s) Sexually active: No Do you think of yourself as: straight/heterosexual Current gender identity: female What is your relationship status?: How often do you talk on the phone with friends or family?: once per week How often do you get together with friends or relatives?: once per week Panel score (0-1 are the most socially isolated patients): 0 What type of physical activity do you participate in: none and sedentary lifestyle Special jakob needs: No Agree to transfusion: Yes Seatbelt use: always In current or past relationships, have you been: made to feel afraid Do you feel safe at home: Yes Do you feel safe in your relationship?: Yes Additional Social history: Lives with son Abdias in house trailer. He works. He never left home. She is on home oxygen. Spends most of her day watching TV, sitting on couch. Has a cat. Never smoked. Has been 3 times. 2 husbands have , from one. Daughter lives in [place] with her 8 kids.
--- NOTE | 2020-10-25 13:05 | PDOC.HHF2F ---
Home Health Certification Home Health Certification: 1. Encounter Date and Reason I certify that Jane Walker was seen by Myah Victor on 10/25/20 and that I had a [id number] encounter with this patient that meets the physician face to face encounter requirements. 2. Clinical Findings Supporting Skilled Need and Homebound Status I certify that home health services are medically necessary, include either intermittent nursing home and/or physical/speech therapy, and that this patient is homebound in that absences from the home require considerable and taxing effort and are infrequent or of short duration, or are attributable to the need to receive medical care. [X] (a) Attached documentation from encounter provides clinical findings supporting skilled need and homebound status (including what assistance patient requires to leave the home). The encounter with the patient was in whole, or in part, for the following medical condition, which is the primary reason for home health care: CHF Exacerbation, gout, acute on chronic renal insufficiency Senior Care: routine evaluation and monitoring, medication oversight, weights, fluid volume status Physical and Occupational Therapy: routine evaluation and treatment Homebound: patient is unable to safely leave house unassisted d/t generalized weakness and impaired ambulation. 3. Certification and Authentication I certify that I composed the above information based on my clinical judgement relating to this patient's medical condition and, if applicable, clinical findings communicated to me by the NPP or inpatient physician who performed the Home Health Referral. All further orders will be obtained through (Community Based Physician - PCP)
--- NOTE | 2020-10-25 17:28 | PDOC.CMDIS ---
- If Service Date Differs Date of service: 10/25/20 Time of Service: 17:28 LACE Index Scoring Tool - Questions: Length of Stay (in days): 7 - 13 Acuity (Admit via E.D.?): Yes Comorbidities: Diabetes w/o Complication, Congestive Heart Failure, Liver or Renal Disease E.D. Visits: 1 - Answers: Total Score: 14 Risk of Readmission: High Risk Care Management Discharge Reason for Hospitalization: CHF Exacerbation Discharge Plan: Jane will be discharged home when medically ready per provider with new home health supports including RN/PT/OT. Jane will transport via private vehicle with her son, and follow up with her PCP and plan of care as prescribed. Patient/Family Education Needs: Review discharge instructions, discuss Ask Me Three. Services Needed at Discharge: Home Health Care Services (RN/PT/OT-[facility] notified. )
--- NOTE | 2020-10-28 18:40 | INDS_ITS ---
Date of service: 10/28/20 PT Notes Visit Reasons: CHF Exacerbation Physical Therapy Inpatient Discharge Summary Date: 10/28/20 Date of service: 10/20/2020 through 10/25/2020 This is a clinical summary of care provided for the duration of dates listed above. No charge was made in the completion of this documentation. Referring Doctor: Myah Victor NP PT Orders: PT CONSULT: Evaluate and Treat Precautions: Standard Patient Profile/Admitting Diagnosis: Orders received for this 75 year old female who has been having some increased dyspnea at home for a few days. She has CHF at baseline and this appears to be an exacerbation of the current condition. PMHx: Medical History Adult body mass index 50.0-59.9 All medications reviewed Anemia Arch pain of left foot Atrial fibrillation Apixaban Carpal tunnel syndrome, bilateral (12/17/16) CHF (congestive heart failure) (02/23/14) Chronic anticoagulation on eliquis Chronic low back pain (07/24/15) CT-lumbar spine 2019-- Severe multilevel degenerative changes in the lumbar spine resulting in neural foraminal and central spinal canal stenosis. 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 Folate deficiency Low 12/2018; resolved 05/2019 labs; discontinued 02/05/2020 Full code status h/o elbow fx H/O fracture of nose H/O rotator cuff tear Heme + stool [facility] [place] Upper GI Endoscopy Peptic Duodenitis (pathology report); repeat hemoccults NEG 11/2019 HTN (hypertension) Hyperlipidemia Hypertension Insulin dependent diabetes mellitus Iron deficiency EGD 05/23/[address] [facility] [place] [place]; discont supp iron & vit c 02/05/2020; Hgb stable and iron constipating; she will obtain dietarily Lipoma of arm Obstructive sleep apnea (02/23/14) Sleep Med Referral, 04/17/2019-->Very severe YARELY; CPAP ([facility]) with continuous O2 Obstructive sleep apnea treated with BiPAP YARELY (obstructive sleep apnea) Palliative care status Peptic ulcer of duodenum [facility] Path reports upper endoscopy; RX Carafate Pulmonary hypertension Risk for falls Sedentary lifestyle Spinal stenosis, lumbar Type II diabetes mellitus Vaccine counseling strongly recommended COVID-19 vaccine she is high risk for multiple reasons PCP office adding her to list of home vaccines Surgical History Biopsy, Temporal Artery (01/18/15) DR.C YOUNG Colonoscopy - MAC (08/14/16) History of carpal tunnel repair Left- 1998 Right- 2017 History of shoulder surgery Right shoulder repair - 2004 History of total abdominal hysterectomy and bilateral salpingo-oophorectomy (~02/1999) History of total bilateral knee replacement Social History/Home Situation: Lives in a private home trailer with her son Equipment Owned/DME: FWW, CPAP Subjective: NT. See most recent X RAY INSPECTOR notes. Objective: NT. See most recent X RAY INSPECTOR notes. Mental Status: NT. See most recent X RAY INSPECTOR notes. Pain: NT. See most recent X RAY INSPECTOR notes. ROM: Right Upper Extremity: WFL Left Upper Extremity: WFL Right Lower Extremity: WFL Left Lower Extremity: WFL Strength: Right Upper Extremity: Globally 4+/5 Left Upper Extremity: Globally 4+/5 Right Lower Extremity: Globally 4+/5 Left Lower Extremity: Globally 4+/5 Bed Mobility/Transfers: Supine to sit independent Sit to supine independent Sit to stand independent Stand to sit independent Bed to chair independent Chair to bed independent Gait: Tolerates up to 100 feet x 2 using front wheel walker with full weight b earing requiring 1 seated rest and 3 standing rests due to fatigue. Balance: Static Sitting: Good Dynamic Sitting: Good Static Standing: Good Dynamic Standing: Fair ASSESSMENT: Patient demonstrates significant functional mobility improvement during this episode of care as evidenced by mobility level above and goal status below. Goals: Goals X1 week 1. Supine-Sit Supervision MET 2. Sit-Supine Supervision MET 3. Sit-Stand Supervision MET 4. Stand-Sit Supervision MET 5. Bed-Chair Supervision MET 6. Gait With Supervision and use of FF walker up to 100 feet MET DISCHARGE RECOMMENDATIONS: Patient will benefit from home health PT services in order to progress mobility level using least restrictive assistive ambulatory device, assess home safety, identify additional equipment needs, and establish a functional maintenance program that will increase ability of patient to remain at home. TREATMENT CODE/TIME: OH Thank you for the opportunity to participate in the care of this patient. Ernestine Nieto PT, DPT, CLT [facility], [place]
--- NOTE | 2020-10-29 07:55 | OTDS_ITS ---
Date of service: 10/29/20 Time of Service: 07:56 Occupational Therapy Notes Occupational Therapy Inpatient Discharge Summary Date: 10/29/20 for 10/25/20 Dates of Service: 10/22/20-10/25/20 Referring Doctor:Soco Varner MD OT Orders: Fall, standard, Full Precautions: Non _urgent *This document serves as a summary of care, no skilled OT services provided for this documentation.* PATIENT PROFILE/ADMITTING DIAGNOSIS: Pt was admitted through the ED with the following dx, A-fib, (R) ankle pain, (R) sided heart failure, B12 deficiency. Past Medical History: Medical History Adult body mass index 50.0-59.9 All medications reviewed Anemia Arch pain of left foot Atrial fibrillation Apixaban Carpal tunnel syndrome, bilateral (12/17/16) CHF (congestive heart failure) (02/23/14) Chronic anticoagulation on eliquis Chronic low back pain (07/24/15) CT-lumbar spine 2019-- Severe multilevel degenerative changes in the lumbar spine resulting in neural foraminal and central spinal canal stenosis. 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 Folate deficiency Low 12/2018; resolved 05/2019 labs; discontinued 02/05/2020 Full code status h/o elbow fx H/O fracture of nose H/O rotator cuff tear Heme + stool [facility] [place] Upper GI Endoscopy Peptic Duodenitis (pathology report); repeat hemoccults NEG 11/2019 HTN (hypertension) Hyperlipidemia Hypertension Insulin dependent diabetes mellitus Iron deficiency EGD 05/23/19 at [facility]; discont supp iron & vit c 02/05/2020; Hgb stable and iron constipating; she will obtain dietarily Lipoma of arm Obstructive sleep apnea (02/23/14) Sleep Med Referral, 04/17/2019-->Very severe YARELY; CPAP ([facility]) with continuous O2 Obstructive sleep apnea treated with BiPAP YARELY (obstructive sleep apnea) Palliative care status Peptic ulcer of duodenum [facility] Path reports upper endoscopy; RX Carafate Pulmonary hypertension Risk for falls Sedentary lifestyle Spinal stenosis, lumbar Type II diabetes mellitus Vaccine counseling strongly recommended COVID-19 vaccine she is high risk for multiple reasons PCP office adding her to list of home vaccines Surgical History Biopsy, Temporal Artery (01/18/15) DR.C YOUNG Colonoscopy - MAC (08/14/16) History of carpal tunnel repair Left- 1998 Right- 2018 History of shoulder surgery Right shoulder repair - 2004 History of total abdominal hysterectomy and bilateral salpingo-oophorectomy (~02/1999) History of total bilateral knee replacement Social History/Home Situation: Pt lives in a private trailer with her son. She states that she is not totally (I) at baseline and he (A) her as needed. Equipment owned/DME: FWW, CPAP SUBJECTIVE:NT OBJECTIVE: ROM: RUE AROM WFL L UE AROM WFL STRENGTH: RUE 4+/5 throughout globally LUE 5/5 throughout globally SENSATION: intact (B) FUNCTIONAL MOBILITY/ADLS: BATHING sitting in bed with max (A) Set up/clean up Bathing UE (I) UE face and arms, max (A) under arms, max (A) under panis Bathing LE max (A) DRESSING sitting in bed Dressing UE Min (A) don and doffing hospital gown Dressing LE min (A) don and doffing (B) socks GROOMING Sitting in bed (I) with brushing hair TOILETING NT, Ruiz in place EATING Sitting in bed, pt required (A) with opening containers but otherwise (I) BALANCE: Static sitting Good Dynamic Sitting Fair-Good ASSESSMENT: Patient is a 75-year-old female referred to occupational therapy services with diagnosis of A-fib, (R) ankle pain, (R) sided heart failure, B12 deficiency. Pt was seen for 4 skilled sessions, she made increased gains in her functional (I) and was discharged home when medically cleared per MD. GOALS 1. Transfers (I) 2. Dressing sitting in chair (I) UE and min (A) LE 3. Bathing sitting in chair (I) 4. Toileting (I) 5. Eating (I) PLAN OF CARE/TREATMENT PLAN: Discharge from skilled OT services. DISCHARGE RECOMMENDATIONS OT feels that pt would be able to return home with HH services when medically cleared per MD vs. SNF if continued decreased mobility occurs limiting her functional (I) TREATMENT TIME/MINUTES/CODES N/A Azul Stoll, OTR/L [facility]
== END 2020-10-25 13:35 | disposition home health service (06) | DRG 292 ==
LOC: ER 19:56 → MS 20:49
PROVIDERS: Internal Medicine; Nurse Practitioner Acute Care; Admitting Provider Family Medicine; Emergency Provider Registered Nurse Emergency; PCP Nurse Practitioner Adult Health; Visit Provider Family Medicine
DX: I13.0 Hypertensive heart and chronic kidney disease with heart failure and stage 1 through stage 4 chronic kidney disease, or unspecified chronic kidney disease (principal); Z68.41 Body mass index [BMI] 40.0-44.9, adult; I50.813 Acute on chronic right heart failure; E11.22 Type 2 diabetes mellitus with diabetic chronic kidney disease; N18.30 Chronic kidney disease, stage 3 unspecified; I48.91 Unspecified atrial fibrillation; Z79.01 Long term (current) use of anticoagulants; Z79.4 Long term (current) use of insulin; Z99.81 Dependence on supplemental oxygen; G47.33 Obstructive sleep apnea (adult) (pediatric); E78.5 Hyperlipidemia, unspecified; D50.9 Iron deficiency anemia, unspecified; I27.20 Pulmonary hypertension, unspecified; M48.061 Spinal stenosis, lumbar region without neurogenic claudication; Z20.822 Contact with and (suspected) exposure to COVID-19; E66.9 Obesity, unspecified; M10.072 Idiopathic gout, left ankle and foot
CPT/HCPCS: 36415; 51702; 80048; 80053; 87635; 93005; 93306; 94618; 96374; 97110; 97162; 97166; 97530; 97535; 99285; 71045; 81003; 81015; 83735; 83880; 84484; 84550; 85025; 86140; 93010; 93970; 99219; 99223; 99226; 99232; 99233; 99239; J3490; J7620

== ENCOUNTER 2020-10-28 23:13 | Outpatient (REF) | payer MEDICARE, SELFPAY ==
[2020-10-28 21:20] LABS: Anion Gap 3.9 mmol/L (3-11); BUN 50 mg/dL (7-18); CO2 38.1 mmol/L (21.0-32.0); CREATININE 2.1 mg/dL (0.55-1.02); Calcium 9.2 mg/dL (8.5-10.1); Chloride 100 mmol/L (98-107); Estimated GFR 23.02 (mL/min/1.73m2); Glucose 136 mg/dL (74-106); NT-proBNP 803 pg/mL (<300); Potassium 4.5 mmol/L (3.5-5.1); Sodium 142 mmol/L (136-145); Uric Acid 11.5 mg/dL (2.6-6.0)
== END 2020-10-28 23:14 | disposition home or self-care (01) ==
LOC: LBN 23:13
PROVIDERS: PCP Nurse Practitioner Adult Health; Visit Provider Nurse Practitioner Adult Health
DX: R10.813 Right lower quadrant abdominal tenderness (principal); M10.9 Gout, unspecified; R79.89 Other specified abnormal findings of blood chemistry
CPT/HCPCS: 80048; 83880; 84550

== ENCOUNTER → 2021-05-05 12:49 | Outpatient (BNVA) | payer MEDICARE, SELFPAY | PROVIDERS: PCP Nurse Practitioner Adult Health; Referring Provider Nurse Practitioner Adult Health; Visit Provider Internal Medicine Cardiovascular Disease | DX: E66.2 Morbid (severe) obesity with alveolar hypoventilation (principal); I48.91 Unspecified atrial fibrillation; I50.9 Heart failure, unspecified; I10 Essential (primary) hypertension | CPT/HCPCS: 99214; 99213 ==

== ENCOUNTER 2021-07-09 08:54 | Inpatient (IN) | payer MEDICARE, SELFPAY ==
[2021-07-09] VITALS (93 sets, daily range): BP systolic 114–167; BP diastolic 65–104; PULSE 45–83; RESP 10–27; TEMP 35.5–36.9; O2SAT 79–99
--- NOTE | 2021-07-09 08:45 | RT.EKG_ITS ---
APPROVED REPORT Exam: Resting ECG Reason for Exam: respiratory distress Patient Location: E HR:71 bpm ECG Measurements Heart Rate 71 AXIS VT [id number] P [id number] QRSd 84 QRS -43 QT 398 T 48 QTc 433 Conclusion Atrial fibrillation...V-rate 69- 81, irreg A-activity Left axis deviation...QRS axis (-30,-90) Low voltage, precordial leads...precordial leads <1.0mV Physician: afib vs flutter, no stemi, no significant st elevations or depressions.
--- NOTE | 2021-07-09 08:45 | DI.RAD_ITS ---
Exam(s) XR PORTABLE CHEST AP EXAM: XR PORTABLE CHEST AP CLINICAL HISTORY: chf, sob TECHNIQUE: 2D digital imaging was performed. COMPARISON: CR,XR XR PORTABLE CHEST AP from 10/18/2020 FINDINGS: The exam is limited by respiratory motion, poor pulmonary inflation and patient body habitus. Leads overlie the chest. Heart size is within normal limits for projection. There is vascular prominence when compared with the previous exam. There are mildly increased bibasilar densities, suspicious for CHF. No gross effusion. No focal infiltrate visible. IMPRESSION: Findings consistent with mild CHF. DATA REPOSITORY: RADIATION DOSE DELIVERED:
--- NOTE | 2021-07-09 09:01 | ED.GENADUL_ITS ---
Discharge Plan Disposition Patient Disposition: [facility] INPATIENT Condition: Improving Discharge Details Chief Complaint: SOB Clinical Impression: CHF (congestive heart failure), Hypoxemia Primary Care Provider: Laverne Sung ED Provider: Yuniel Mancilla Home Meds and New Rx's Prescriptions: No Action fluticasone propionate 50 mcg/actuation spray,suspension 1 spray NS DAILY PRN (Reason: allergy symptoms) Qty: 15.8 0RF (DME) pen needle, diabetic [BD Ultra-Fine Mini Pen Needle] 31 gauge x 3/16 needle See Rx Instructions .ROUTE .MEDSUPPLY Qty: 100 6RF Rx Instructions: for insulin administration qid dx E11.22 #360 Refill 3 amlodipine 5 mg tablet 5 mg PO HS Qty: 90 3RF Rx Instructions: For blood pressure (take with Amlodipine 2.5mg for TDD 7.5mg) amlodipine 2.5 mg tablet 2.5 mg PO .daily in AM Qty: 90 3RF Rx Instructions: Blood pressure (take with Amlodipine 5mg for TDD 7.5mg) insulin aspart U-100 [Novolog Flexpen U-100 Insulin] 100 unit/mL (3 mL) insulin pen See Rx Instructions subcut AC MDD 30 units Qty: 90 3RF Rx Instructions: 2-10 units subcut before meals; For diabetes as directed with meals sliding scale: 100:0units 101-150: 2 units 151-200: 4 units 201-250: 6 units 251-300: 8 units over 300: 10 units (DME) FreeStyle Bradley 2 Sensor Kit See Rx Instructions .ROUTE .MEDSUPPLY Qty: 2 11RF Rx Instructions: As directed; on insulin AC & HS for goal A1C 8% acetaminophen [Tylenol Extra Strength] 500 mg tablet 500 mg PO Q6H PRN0RF (DME) Oxygen Tank See Rx Instructions .ROUTE .MEDSUPPLY Qty: 1 0RF Rx Instructions: 2-3L via NC continuous cyanocobalamin (vitamin B-12) 1,000 mcg/mL kit 1,000 mcg subcut QMONTH Qty: 1 11RF Rx Instructions: May self-administer at home for low B12 pantoprazole [Protonix] 40 mg tablet,delayed release (DR/EC) 40 mg PO DAILY Qty: 90 3RF Rx Instructions: h/o GI bleed, stomach protection Eliquis 5 mg tablet 5 mg PO BID Qty: 180 3RF (DME) BD Eclipse Luer-Timi 3 mL 23 x 1 syringe See Rx Instructions .ROUTE .MEDSUPPLY Qty: 15 0RF Rx Instructions: for use with monthly self administered B12 injections bumetanide 1 mg tablet 1 mg PO BID Qty: 180 3RF Rx Instructions: Diuretic for heart and swelling or as directed atorvastatin 80 mg tablet 80 mg PO QHS Qty: 90 3RF Rx Instructions: Cholesterol Levemir FlexTouch U-100 Insuln 100 unit/mL (3 mL) insulin pen 30 unit subcut QHS 0RF Rx Instructions: decreased 07/04/21 by - docusate sodium [Colace] 100 mg Capsule 100 mg PO TID PRN PRNQty: 0 0RF Calcium 600 with Vitamin D3 600 mg(1,500mg) -400 unit Tablet,Chewable 1 tab PO BID 0RF Medical Decision Making He is a 75-year-old female with a past medical history of A. fib (on Eliquis), reactive airway disease, obesity, congestive heart failure, chronic renal insufficiency, obstructive sleep apnea, type 2 diabetes, pulmonary hypertension, who is normally on 3 L of home oxygen, and uses BiPAP regularly, presents today for shortness of breath. Patient states that for the last week or so she has been getting progressively more short of breath. She denies chest pain or chest tightness. She has been taking her anticoagulant as directed as well as her Bumex 1 mg twice daily. She is also admitted to a mild cough but denies any significant productivity. She has received her COVID-vaccine. She denies any fever or chills. She states that her symptoms are notably worse when she lies flat. She denies any other complaints at this time. No other modifying factors. Of note upon EMS arrival the patient was saturating in the 80s on her 3 L of oxygen. She was started positive pressure CPAP and came up to the low 90s. Physical exam demonstrates crackles in the bases, +1 pitting edema, scattered wheezes. Symptoms are concerning primarily for CHF exacerbation. PE unlikely given the patient anticoagulation use. Cardiac etiology of ischemia less likely given no chest pain, however it does remain on the differential. Reactive airway disease is on the differential as well, the patient does have scattered wheezes but this may simply be a component of fluid overload. With her history of chronic renal failure we will check labs, gently diurese, continue BiPAP, monitor closely and reassess. Patient is on CPAP currently, at 100% oxygen at 95% O2 saturations. However when she converses her oxygen drops to the high 80s even on this. In spite of this she remains notably cognizant, mental status is excellent. No indication for intubation at this stage. 10:38 AM Laboratory work-up has returned, no white count bandemia or left shift. Chest x-ray shows evidence of congestive heart failure. Bedside ultrasound demonstrates a good ejection fraction, right ventricle is slightly enlarged, which is likely secondary to the patient pulmonary hypertension. She has been taking her anticoagulant as directed. Symptoms appear less consistent with PE. Patient has notably improved with the positive pressure ventilation, she is doing much better on this, she has now transitioned down to 40% FiO2, and she is saturating at 94 to 97%. Patient otherwise feels improved. Troponin normal, EKG stable. proBNP notably elevated at 1999. VBG demonstrates mild acidosis with a notably high PCO2 of 91, demonstrating an acute on chronic component. Breathing treatment was given here and by EMS as well. Creatinine is 2, BUN 39. 2 mg of Bumex was given IV to help diminish patient's fluid overload. COVID, flu, RSV are negative. Patient remains hemodynamically stable. Discussed the case with the hospitalist Dr. Sanchez, he agrees with the assessment and plan. I have extensively reviewed the treatment plan with the patient. I have addressed all patient concerns at this time. I have also discussed the plan with the admitting physician and they agree with the current assessment and plan and have agreed to assume responsibility for the patient. All parties demonstrate verbal understanding and agreement with our assessment and plan at this time. The documentation in this chart was dictated using Vimty dictation software. Please excuse any dictation errors. FINDINGS: The exam is limited by respiratory motion, poor pulmonary inflation and patient body habitus. Leads overlie the chest. Heart size is within normal limits for projection. There is vascular prominence when compared with the previous exam. There are mildly increased bibasilar densities, suspicious for CHF. No gross effusion. No focal infiltrate visible. IMPRESSION: Findings consistent with mild CHF. HPI General Date/Time Provider Initiated Documentation: 07/09/21 08:59 . HPI Narrative: He is a 75-year-old female with a past medical history of A. fib (on Eliquis), reactive airway disease, obesity, congestive heart failure, chronic renal insufficiency, obstructive sleep apnea, type 2 diabetes, pulmonary hypertension, who is normally on 3 L of home oxygen, and uses BiPAP regularly, presents today for shortness of breath. Patient states that for the last week or so she has been getting progressively more short of breath. She denies chest pain or chest tightness. She has been taking her anticoagulant as directed as well as her Bumex 1 mg twice daily. She is also admitted to a mild cough but denies any significant productivity. She has received her COVID-vaccine. She denies any fever or chills. She states that her symptoms are notably worse when she lies flat. She denies any other complaints at this time. No other modifying factors. Of note upon EMS arrival the patient was saturating in the 80s on her 3 L of oxygen. She was started positive pressure CPAP and came up to the low 90s. Related Data Home Medications Medication Instructions Recorded Confirmed docusate sodium 100 mg capsule 100 mg PO TID PRN PRN #0 cap 02/24/18 07/09/21 (Colace) calcium carbonate 600 mg-vitamin 1 tab PO BID 12/28/18 07/09/21 D3 10 mcg (400 unit) chewable tablet (Calcium 600 with Vitamin D3) acetaminophen 500 mg tablet 500 mg PO Q6H PRN 12/04/19 07/09/21 (Tylenol Extra Strength) fluticasone propionate 50 1 spray NS DAILY PRN #15.8 ml 05/20/20 07/09/21 mcg/actuation nasal spray,suspension apixaban 5 mg tablet (Eliquis) 5 mg PO BID #180 tab 09/30/20 07/09/21 pantoprazole 40 mg tablet,delayed 40 mg PO DAILY #90 tab 09/30/20 07/09/21 release (Protonix) pen needle, diabetic 31 gauge x #100 each 10/28/20 06/16/2105/28 (BD Ultra-Fine Mini Pen Needle) Oxygen #1 each 11/04/20 06/16/21 cyanocobalamin (vitamin B-12) 1,000 mcg SUBCUT QMONTH #1 ea 12/23/20 06/16/21 1,000 mcg/mL injection kit syringe with needle 3 mL 23 x 1 #15 ea 01/02/21 06/16/21 (BD Eclipse Luer-Timi) bumetanide 1 mg tablet 1 mg PO BID #180 tab 02/10/21 07/09/21 atorvastatin 80 mg tablet 80 mg PO QHS #90 tab 05/12/21 07/09/21 amlodipine 2.5 mg tablet 2.5 mg PO .daily in AM #90 tab 06/16/21 06/16/21 amlodipine 5 mg tablet 5 mg PO HS #90 tab 06/16/21 07/09/21 insulin aspart U-100 100 unit/mL See Rx Instructions SUBCUT AC #90 06/16/21 07/09/21 (3 mL) subcutaneous pen (Novolog ml MDD 30 units Flexpen U-100 Insulin aspart) flash glucose sensor (FreeStyle #2 ea 07/01/21 Bradley 2 Sensor) insulin detemir U-100 100 unit/mL 30 unit SUBCUT QHS 07/04/21 07/09/21 (3 mL) subcutaneous pen (Levemir FlexTouch U-100 Insulin) Previous Rx's Medication Instructions Recorded docusate sodium 100 mg capsule 100 mg PO TID PRN PRN #0 cap 02/24/18 (Colace) fluticasone propionate 50 1 spray NS DAILY PRN #15.8 ml 05/20/20 mcg/actuation nasal spray,suspension apixaban 5 mg tablet (Eliquis) 5 mg PO BID #180 tab 09/30/20 pantoprazole 40 mg tablet,delayed 40 mg PO DAILY #90 tab 09/30/20 release (Protonix) pen needle, diabetic 31 gauge x #100 each 10/28/2005/28 (BD Ultra-Fine Mini Pen Needle) Oxygen #1 each 11/04/20 cyanocobalamin (vitamin B-12) 1,000 mcg SUBCUT QMONTH #1 ea 12/23/20 1,000 mcg/mL injection kit syringe with needle 3 mL 23 x 1 #15 ea 01/02/21 (BD Eclipse Luer-Timi) bumetanide 1 mg tablet 1 mg PO BID #180 tab 02/10/21 atorvastatin 80 mg tablet 80 mg PO QHS #90 tab 05/12/21 amlodipine 2.5 mg tablet 2.5 mg PO .daily in AM #90 tab 06/16/21 amlodipine 5 mg tablet 5 mg PO HS #90 tab 06/16/21 insulin aspart U-100 100 unit/mL See Rx Instructions SUBCUT AC #90 06/16/21 (3 mL) subcutaneous pen (Novolog ml MDD 30 units Flexpen U-100 Insulin aspart) flash glucose sensor (FreeStyle #2 ea 07/01/21 Bradley 2 Sensor) Allergies Allergy/AdvReac Type Severity Reaction Status Date / Time codeine Allergy Severe Swelling/Ed Verified 07/09/21 09:13 warner furosemide [From Lasix] Allergy Severe Swelling/Ed Verified 07/09/21 09:13 warner morphine Allergy Severe Swelling/Ed Verified 07/09/21 09:13 warner peanut Allergy Severe Verified 07/09/21 09:13 tree nut Allergy Severe Verified 07/09/21 09:13 acetaminophen [From Percocet] Allergy Intermediate ITCHY Verified 07/09/21 09:13 adhesive tape Allergy Intermediate Skin Rash Verified 07/09/21 09:13 oxycodone HCl [From Percocet] Allergy Intermediate ITCHY Verified 07/09/21 09:13 apricot Allergy Unknown Uncoded 07/09/21 09:13 General GERALDINE: 2 Review of Systems All systems reviewed & are unremarkable except as noted in HPI and below PFSH All Active Problems (Updated 07/09/21 @ 10:42 by Yuniel Mancilla DO) Hypoxemia (Acute) Diabetes (Chronic) Dependent on walker for ambulation (Chronic) Obesity hypoventilation syndrome (Chronic) Obesity + Severe YARELY + Chronic Hypercapnia Chronic respiratory failure with hypercapnia (Chronic) Restrictive lung disease (Chronic ~03/2014) PFTs validated 04/04/2014-->see scanned docs B12 deficiency (Chronic) Start B12 injections; elevated MCV Sedentary lifestyle (Chronic) Sciatica of right side without back pain (Acute) RX Medrol Risk for falls (Chronic) Chronic anticoagulation (Chronic) AF--Apixaban Renal calculi (Chronic) Non obstructive per CT Chronic low back pain (Chronic 07/24/15) CT-lumbar spine 2019-- Severe multilevel degenerative changes in the lumbar spine resulting in neural foraminal and central spinal canal stenosis. Obstructive sleep apnea (Chronic 02/23/14) Sleep Med Referral, 04/17/2019-->Very severe YARELY; CPAP ([facility]) with continuous O2, new Panda C-Pap 01/2021 Anemia (Chronic) Atrial fibrillation (Chronic) Apixaban CHF (congestive heart failure) (Chronic 02/23/14) Preserved EF (10/2020 ECHO) Hypertension (Chronic) Hyperlipidemia (Chronic) Type II diabetes mellitus (Chronic) Full code status (Chronic) Palliative care status (Chronic) Dependence on supplemental oxygen (Chronic) YARELY + Pulm HTN CKD (chronic kidney disease) (Chronic) Pulmonary hypertension (Chronic) Medical History Adult body mass index 50.0-59.9 Carpal tunnel syndrome, bilateral (12/17/16) Dietary counseling reviewed sodium levels in her food, how to count mg, goal of 1500 mg daily due to CHF 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 Folate deficiency Low 12/2018; resolved 05/2019 labs; discontinued 02/05/2020 h/o elbow fx H/O fracture of nose H/O rotator cuff tear Heme + stool [facility] [place] GI Endoscopy Peptic Duodenitis (pathology report); repeat hemoccults NEG 11/2019 HTN (hypertension) Insulin dependent diabetes mellitus Iron deficiency EGD 05/23/19 at [facility]; discont supp iron & vit c 02/05/2020; Hgb stable and iron constipating; she will obtain dietarily Lipoma of arm YARELY (obstructive sleep apnea) Peptic ulcer of duodenum [facility] Path reports upper endoscopy; RX Carafate Spinal stenosis, lumbar Surgical History Biopsy, Temporal Artery (01/18/15) DR.C YOUNG Colonoscopy - [facility] (08/14/16) History of carpal tunnel repair Left- 1998 Right- 2017 History of shoulder surgery Right shoulder repair - 2004 History of total abdominal hysterectomy and bilateral salpingo-oophorectomy (~02/1999) History of total bilateral knee replacement Family History Mother Heart disease Father Heart disease Lung cancer Brother Heart disease AAA (abdominal aortic aneurysm, ruptured) Brother Obesity Son No problems noted. Daughter Stillborn, abnormal Daughter No problems noted. Social History Smoking/Tobacco Use Status: Never Second Hand Exposure: Yes Smoking risk assessment performed?: Yes Alcohol Intake: former Details: never drank heavily but her husbands did Drug use: Never Substance use type: does not use Adopted: No Caregiver/Support person: Yes Foster care: No Household members: children Housing: house Number of Children: 2 number of grandchildren: 8 Communication Needs: Corrective Lenses Education Level: middle school Do you need help understanding health information?: Always current occupation: Retired- [employer] Pets and animals: Yes Pets and animals: cat(s) Sexually active: No Do you think of yourself as: straight/heterosexual Current gender identity: female What is your relationship status?: How often do you talk on the phone with friends or family?: once per week How often do you get together with friends or relatives?: once per week Panel score (0-1 are the most socially isolated patients): 0 What type of physical activity do you participate in: none and sedentary lifestyle Special jakob needs: No Agree to transfusion: Yes Seatbelt use: always In current or past relationships, have you been: made to feel afraid Do you feel safe at home: Yes Do you feel safe in your relationship?: Yes Additional Social history: Lives with son Abdias in house trailer. He works. He never left home. She is on home oxygen. Spends most of her day watching TV, sitting on couch. Has a cat. Never smoked. Has been 3 times. 2 husbands have , from one. Daughter lives in [place] with her 8 kids. Exam Narrative Exam Narrative: 1.Const: Well-nourished, Well-developed, appearing stated age 2.Eyes: PERRL, no conjunctival injection, and symmetrical lids. 3.ENT: Atraumatic external nose and ears. Moist MM. Neck: Symmetric, trachea midline, No thyromegaly. 4.CVS: +S1/S2, No murmurs or gallops. Peripheral pulses 2+ and equal in all extremities. Brisk capillary refill in all extremities. 5.RESP: Mildly labored respiratory effort. Crackles in the bases bilaterally, scattered wheezes are present. 6.GI: Soft, Nontender/Nondistended, No hepatosplenomegaly. No guarding or rebound. 7.MSK: Normocephalic/Atraumatic, Extremities w/o deformity or ttp No cyanosis or clubbing, Normal movement of all extremities, +1 pitting edema bilaterally. 8.Skin: Warm, Dry. No rashes or lesions. 9.Neuro: bit grinder II-XII grossly intact. Sensation grossly intact, no focal neurologic deficits. 10.Psych: (AAO) x3. Appropriate mood and affect
[2021-07-09] MEDS: Albuterol/Ipratropium 3 ML UPD VIAL UPD (09:22)
[2021-07-09 09:43] LABS: BE (Venous) 9 mmol/L (-2-3); HCO3 (Venous) 37 mmol/L (23-28); O2 Sat (Venous) 43 %; TCO2 (Venous) 36 mmol/L (24-29); pH (Venous) 7.22 (7.31-7.41); pO2 (Venous) 28 mmHg
[2021-07-09 09:44] LABS: Abs Immature Grans 0.01 10^3/uL (0.0-0.06); Absolute Basophil Count 0.03 10^3/uL (0.0-0.2); Absolute Eosinophil Count 0.13 10^3/uL (0.0-0.7); Absolute Lymphocyte Count 1.03 10^3/uL (1.2-3.4); Absolute Monocyte Count 0.28 10^3/uL (0.1-0.8); Absolute Neutrophil Count 4.43 10^3/uL (1.2-6.7); Basophils % 0.5; Eosinophils % 2.2; HCT 37.3 % (36.0-46.0); HGB 10.8 g/dL (11.2-15.7); Immature Grans % 0.2; Lymphocytes % 17.4; MCH 30.5 pg (27.0-33.0); MCV 105.4 fL (80-95); MPV 10.3 fL (8.0-11.0); Monocytes % 4.7; Platelet Count 177 10^3/uL (130-400); RBC 3.54 10^6/uL (3.93-5.22); RDW 14.7 % (11.7-14.6); RDW-SD 57.3 fL; WBC 5.91 10^3/uL (4.4-10.8)
[2021-07-09 09:49] LABS: pCO2 (Venous) 91 mmHg (41-51)
[2021-07-09 09:59] LABS: INR 1.2 (0.9-1.1); PTT Activated 26.2 sec (21.0-27.5); Prothrombin Time 11.9 sec (9.3-11.0)
[2021-07-09 10:11] LABS: ALT 11 U/L (14-59); AST 13 U/L (15-37); Albumin 3.3 g/dL (3.4-5.0); Alkaline Phosphatase 89 U/L (46-116); Anion Gap 0.3 mmol/L (3-11); BUN 39 mg/dL (7-18); Bilirubin, Total 0.5 mg/dL (0.2-1.0); CO2 37.7 mmol/L (21.0-32.0); Calcium 8.8 mg/dL (8.5-10.1); Chloride 100 mmol/L (98-107); Estimated GFR 24.36 (mL/min/1.73m2); Glucose 154 mg/dL (74-106); NT-proBNP 6382 pg/mL (<300); Potassium 3.9 mmol/L (3.5-5.1); Sodium 138 mmol/L (136-145); Total Protein 7.4 g/dL (6.4-8.2); Troponin I < 50 ng/L (<or=60)
[2021-07-09 10:27] LABS: COVID-19 PCR Negative (Negative); Influenza A PCR Negative (Negative); Influenza B PCR Negative (Negative); RSV PCR Negative (Negative); Source Nasopharynx
[2021-07-09] MEDS: Bumetanide 1 MG/4 ML VIAL 2 MG IVP (10:33)
[2021-07-09 12:48] LABS: Troponin I < 50 ng/L (<or=60)
[2021-07-09 13:54] LABS: BE 9 mmol/L (-2-3); HCO3 35 mmol/L (22-26); pH 7.31 (7.35-7.45); pO2 48 mmHg (80-105); sO2 81 % (95-98); tCO2 33 mmol/L (23-27)
[2021-07-09 13:56] LABS: pCO2 70 mmHg (35-45)
--- NOTE | 2021-07-09 14:36 | W.PM.HP.N ---
Date of service: 07/09/21 Time of Service: 13:20 Assessment and Plan Assessment and plan (1) CHF (congestive heart failure): Start date: 07/09/21 Start time: 13:00 Status: Chronic Assessment and plan: Patient has had SOB since last week, SOB severity to the point of not being able to eat or drink. Her son called EMS today after not being able to drink her tea d/t SOB. ABG done see results. She is currently requiring 6 L oxygen therefore she is being placed on bipap, she would benefit from trilogy and qualifies. Placed on bumex drip, with [facility] monitor, afib normal for paitent Rate controlled on apixaban Strict I/O daily wts. Qualifiers: Heart failure type: unspecified Heart failure chronicity: chronic Qualified Code(s): I50.9 - Heart failure, unspecified (2) Atrial fibrillation: Start date: 07/09/21 Start time: 13:00 Status: Chronic Assessment and plan: as above rate controlled continue amlodipine Qualifiers: Atrial fibrillation type: unspecified Qualified Code(s): I48.91 - Unspecified atrial fibrillation (3) Chronic respiratory failure with hypercapnia: Start date: 07/09/21 Start time: 13:00 Status: Chronic Assessment and plan: as above (4) Hypoxemia: Start date: 07/09/21 Start time: 13:00 Status: Acute Assessment and plan: as above (5) Diabetes: Start date: 07/09/21 Start time: 13:00 Status: Chronic Assessment and plan: Patient has CGM continue with FS and SSI, will also continue home dosing of long acting levemir. Monitor glucose levels (6) Chronic anticoagulation: Start date: 07/09/21 Start time: 13:00 Status: Chronic Assessment and plan: on apixaban (7) Hypertension: Start date: 07/09/21 Start time: 13:00 Status: Chronic Assessment and plan: continue home medicatons monitor bp Qualifiers: Hypertension type: essential hypertension Qualified Code(s): I10 - Essential (primary) hypertension (8) Hyperlipidemia: Start date: 07/09/21 Start time: 13:00 Status: Chronic Assessment and plan: Continue atorvastatin Qualifiers: Hyperlipidemia type: unspecified Qualified Code(s): E78.5 - Hyperlipidemia, unspecified (9) Pulmonary hypertension: Start date: 07/09/21 Start time: 13:00 Status: Chronic Assessment and plan: requiring oxygen d/t this. Moderate (10) CKD (chronic kidney disease): Start date: 07/09/21 Start time: 13:00 Status: Chronic Assessment and plan: as baseline continue to monitor discussed with Dr. Sanchez Qualifiers: Chronic kidney disease stage: stage 3 (moderate) Qualified Code(s): N18.3 - Chronic kidney disease, stage 3 (moderate) History of Present Illness History of Present Illness Chief Complaint: CHF, SOB Narrative: 75 y.o. female with PMH of DM, YARELY with both CPAP and bipap at home that she states she does not use due to the mask, oxygen dependent on 3 L, HTN, HLD, PHTN, Right sided HF, Afib anticogaulated on apixaban presented to [facility] for SOB since over a week she states last Wednesday worsening to the point that she was unable to drink her Tea today. Her son called EMS d/t this. In the ED she received an IV dose of Bumex. She had a VBG pCO2 91, pCO2 70, carbon dioxide 37.7, anion gap 0.3, BUN 39, Creatinine 2.0 both are baseline Renal function. BNP was 6382. Covid negative. She was asked to be admitted to [facility] for further management. She is unable to speak complete sentences without being SOB. She would benefit from triology,for now will place on bipap. ABG done pH 7.3, pCO 2 69.9, pO2 48.1 sO2 81.2, she was on 6 L sating 88%, Bumex drip ordered, with marino, d/t severity of volume overload. Daily wts, strict I/O. Monitor daily labs. She has a continuous glucose monitor (CGM), continue CGM with Fingersticks for accuracy. Review of Systems All systems reviewed & are unremarkable except as noted in HPI and below PFSH All Active Problems Hypoxemia (Acute) Diabetes (Chronic) Dependent on walker for ambulation (Chronic) Obesity hypoventilation syndrome (Chronic) Obesity + Severe YARELY + Chronic Hypercapnia Chronic respiratory failure with hypercapnia (Chronic) Restrictive lung disease (Chronic ~03/2014) PFTs validated 04/04/2014-->see scanned docs B12 deficiency (Chronic) Start B12 injections; elevated MCV Sedentary lifestyle (Chronic) Sciatica of right side without back pain (Acute) RX Medrol Risk for falls (Chronic) Chronic anticoagulation (Chronic) AF--Apixaban Renal calculi (Chronic) Non obstructive per CT Chronic low back pain (Chronic 07/24/15) CT-lumbar spine 2019-- Severe multilevel degenerative changes in the lumbar spine resulting in neural foraminal and central spinal canal stenosis. Obstructive sleep apnea (Chronic 02/23/14) Sleep Med Referral, 04/17/2019-->Very severe YARELY; CPAP ([facility]) with continuous O2, new Panda C-Pap 01/2021 Anemia (Chronic) Atrial fibrillation (Chronic) Apixaban CHF (congestive heart failure) (Chronic 02/23/14) Preserved EF (10/2020 ECHO) Hypertension (Chronic) Hyperlipidemia (Chronic) Type II diabetes mellitus (Chronic) Full code status (Chronic) Palliative care status (Chronic) Dependence on supplemental oxygen (Chronic) YARELY + Pulm HTN CKD (chronic kidney disease) (Chronic) Pulmonary hypertension (Chronic) Medical History Adult body mass index 50.0-59.9 Carpal tunnel syndrome, bilateral (12/17/16) Dietary counseling reviewed sodium levels in her food, how to count mg, goal of 1500 mg daily due to CHF 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 Folate deficiency Low 12/2018; resolved 05/2019 labs; discontinued 02/05/2020 h/o elbow fx H/O fracture of nose H/O rotator cuff tear Heme + stool [facility] Peptic Duodenitis (pathology report); repeat hemoccults NEG 11/2019 HTN (hypertension) Insulin dependent diabetes mellitus Iron deficiency [place]23[place] [facility] discont supp iron & vit c 02/05/2020; Hgb stable and iron constipating; she will obtain dietarily Lipoma of arm YARELY (obstructive sleep apnea) Peptic ulcer of duodenum [facility] [place] reports upper endoscopy; RX Carafate Spinal stenosis, lumbar Surgical History Biopsy, Temporal Artery (01/18/15) DR.C YOUNG Colonoscopy - [facility] (08/14/16) History of carpal tunnel repair Left- 1998 Right- 2018 History of shoulder surgery Right shoulder repair - 2004 History of total abdominal hysterectomy and bilateral salpingo-oophorectomy (~02/1999) History of total bilateral knee replacement Family History Mother Heart disease Father Heart disease Lung cancer Brother Heart disease AAA (abdominal aortic aneurysm, ruptured) Brother Obesity Son No problems noted. Daughter Stillborn, abnormal Daughter No problems noted. 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 Pets and animals: Yes Pets and animals: cat(s) Sexually active: No Do you think of yourself as: straight/heterosexual Current gender identity: female What is your relationship status?: How often do you talk on the phone with friends or family?: once per week How often do you get together with friends or relatives?: once per week Panel score (0-1 are the most socially isolated patients): 0 What type of physical activity do you participate in: none and sedentary lifestyle Special jakob needs: No Agree to transfusion: Yes Seatbelt use: always In current or past relationships, have you been: made to feel afraid Do you feel safe at home: Yes Do you feel safe in your relationship?: Yes Additional Social history: Lives with son Abdias in house trailer. He works. He never left home. She is on home oxygen. Spends most of her day watching TV, sitting on couch. Has a cat. Never smoked. Has been 3 times. 2 husbands have , from one. Daughter lives in [place] with her 8 kids. Meds Allergies and Home Medications Allergies Allergy/AdvReac Type Severity Reaction Status Date / Time codeine Allergy Severe Swelling/Ed Verified 07/09/21 09:13 warner furosemide [From Lasix] Allergy Severe Swelling/Ed Verified 07/09/21 09:13 warner morphine Allergy Severe Swelling/Ed Verified 07/09/21 09:13 warner peanut Allergy Severe Verified 07/09/21 09:13 tree nut Allergy Severe Verified 07/09/21 09:13 acetaminophen [From Percocet] Allergy Intermediate ITCHY Verified 07/09/21 09:13 adhesive tape Allergy Intermediate Skin Rash Verified 07/09/21 09:13 oxycodone HCl [From Percocet] Allergy Intermediate ITCHY Verified 07/09/21 09:13 apricot Allergy Unknown Uncoded 07/09/21 09:13 Home Medications Medication Instructions Recorded Confirmed Type docusate sodium 100 mg capsule 100 mg PO TID PRN PRN #0 cap 02/24/18 07/09/21 Rx (Colace) calcium carbonate 600 mg-vitamin 1 tab PO BID 12/28/18 07/09/21 History D3 10 mcg (400 unit) chewable tablet (Calcium 600 with Vitamin D3) acetaminophen 500 mg tablet 500 mg PO Q6H PRN 12/04/19 07/09/21 History (Tylenol Extra Strength) fluticasone propionate 50 1 spray NS DAILY PRN #15.8 ml 05/20/20 07/09/21 Rx mcg/actuation nasal spray,suspension apixaban 5 mg tablet (Eliquis) 5 mg PO BID #180 tab 09/30/20 07/09/21 Rx pantoprazole 40 mg tablet,delayed 40 mg PO DAILY #90 tab 09/30/20 07/09/21 Rx release (Protonix) pen needle, diabetic 31 gauge x #100 each 10/28/20 06/16/21 Rx 3/16 (BD Ultra-Fine Mini Pen Needle) Oxygen #1 each 11/04/20 06/16/21 Rx cyanocobalamin (vitamin B-12) 1,000 mcg SUBCUT QMONTH #1 ea 12/23/20 06/16/21 Rx 1,000 mcg/mL injection kit syringe with needle 3 mL 23 x 1 #15 ea 01/02/21 06/16/21 Rx (BD Eclipse Luer-Timi) bumetanide 1 mg tablet 1 mg PO BID #180 tab 02/10/21 07/09/21 Rx atorvastatin 80 mg tablet 80 mg PO QHS #90 tab 05/12/21 07/09/21 Rx amlodipine 2.5 mg tablet 2.5 mg PO .daily in AM #90 tab 06/16/21 06/16/21 Rx amlodipine 5 mg tablet 5 mg PO HS #90 tab 06/16/21 07/09/21 Rx insulin aspart U-100 100 unit/mL See Rx Instructions SUBCUT AC #90 06/16/21 07/09/21 Rx (3 mL) subcutaneous pen (Novolog ml MDD 30 units Flexpen U-100 Insulin aspart) flash glucose sensor (FreeStyle #2 ea 07/01/21 Rx Bradley 2 Sensor) insulin detemir U-100 100 unit/mL 30 unit SUBCUT QHS 07/04/21 07/09/21 History (3 mL) subcutaneous pen (Levemir FlexTouch U-100 Insulin) Exam Const General: cooperative, comfortable and ill appearing chronically Nutritional Appearance: obese centrally obese Orientation: alert, awake and oriented x3 HENMT Head: normal to inspection and atraumatic Ears: hearing grossly normal bilaterally Mouth: moist mucous membranes Eyes Eyelids: eyelids normal Pupils: PERRL EOM: EOM intact bilaterally Neck Neck: normal visual inspection and JVD Lymphatic: no lymphadenopathy noted Chest Chest: normal inspection of the chest Resp Effort & Inspection: abnormal respiratory effort, not able to speak in complete sentences, abnormal respiratory pattern other, cough and tachypneic Auscultation: crackles bilaterally Cardio Jugular venous pressure: no JVD Rate: abnormal rate Rhythm: abnormal rhythm and abnormal rhythm irregularly irregular GI Inspection: large pannus and obesity Auscultation: normal bowel sounds General: No CVA tenderness and deferred Skin General skin exam: no rashes or lesions noted Neuro General: patient alert, patient awake and patient oriented x3 Cognition: normal cognition Speech: speech normal Gait: normal gait Extrem General: abnormal to inspection and full ROM Right lower extremity: edema Details: pitting and 3+ Left lower extremity: edema Details: pitting and 3+ Psych Appearance: disheveled Mental Status: mental status grossly normal Mood: congruent mood Affect: normal affect Attitude: cooperative Results Labs Result diagrams: 07/09/21 09:30 07/09/21 09:30 Labs: Laboratory Results - last 24 hr 07/09/21 07/09/21 07/09/21 09:30 09:30 09:30 WBC 5.91 RBC 3.54 L Hgb 10.8 L Hct 37.3 MCV 105.4 H MCH 30.5 MCHC 29.0 L RDW 14.7 H Plt Count 177 MPV 10.3 Immature Gran % 0.2 Neutrophils % 75.0 Lymphocytes % 17.4 Monocytes % 4.7 Eosinophils % 2.2 Basophils % 0.5 Nucleated RBC % 0.0 Absolute Neutrophils 4.43 Absolute Lymphocytes 1.03 L Absolute Monocytes 0.28 Absolute Eosinophils 0.13 Absolute Basophils 0.03 PT INR APTT ABG Sample Site ABG pH ABG pCO2 ABG pO2 ABG HCO3 ABG Total CO2 ABG O2 Saturation ABG Base Excess VBG pH VBG pCO2 VBG pO2 VBG HCO3 VBG Total CO2 VBG O2 Saturation VBG Base Excess Sodium 138 Potassium 3.9 Chloride 100 Carbon Dioxide 37.7 H Anion Gap 0.3 L BUN 39 H Creatinine 2.0 H Estimated GFR/1.73 m2 24.36 Glucose 154 H Calcium 8.8 Total Bilirubin 0.5 AST 13 L ALT 11 L Alkaline Phosphatase 89 Troponin I < 50 NT-Pro-B Natriuret Pep 6382 H Total Protein 7.4 Albumin 3.3 L COVID-19 Source Nasopharynx SARS-CoV-2 (PCR) Negative Influenza Type A (PCR) Negative Influenza Type B (PCR) Negative RSV (PCR) Negative 07/09/21 07/09/21 07/09/21 09:30 09:30 12:25 WBC RBC Hgb Hct MCV MCH MCHC RDW Plt Count MPV Immature Gran % Neutrophils % Lymphocytes % Monocytes % Eosinophils % Basophils % Nucleated RBC % Absolute Neutrophils Absolute Lymphocytes Absolute Monocytes Absolute Eosinophils Absolute Basophils PT 11.9 H INR 1.2 H APTT 26.2 ABG Sample Site ABG pH ABG pCO2 ABG pO2 ABG HCO3 ABG Total CO2 ABG O2 Saturation ABG Base Excess VBG pH 7.22 L VBG pCO2 91 H* VBG pO2 28 VBG HCO3 37 H VBG Total CO2 36 H VBG O2 Saturation 43 VBG Base Excess 9 H Sodium Potassium Chloride Carbon Dioxide Anion Gap BUN Creatinine Estimated GFR/1.73 m2 Glucose Calcium Total Bilirubin AST ALT Alkaline Phosphatase Troponin I < 50 NT-Pro-B Natriuret Pep Total Protein Albumin COVID-19 Source SARS-CoV-2 (PCR) Influenza Type A (PCR) Influenza Type B (PCR) RSV (PCR) 07/09/21 13:45 WBC RBC Hgb Hct MCV MCH MCHC RDW Plt Count MPV Immature Gran % Neutrophils % Lymphocytes % Monocytes % Eosinophils % Basophils % Nucleated RBC % Absolute Neutrophils Absolute Lymphocytes Absolute Monocytes Absolute Eosinophils Absolute Basophils PT INR APTT ABG Sample Site Unknown ABG pH 7.31 L ABG pCO2 70 H* ABG pO2 48 L ABG HCO3 35 H ABG Total CO2 33 H ABG O2 Saturation 81 L ABG Base Excess 9 H VBG pH VBG pCO2 VBG pO2 VBG HCO3 VBG Total CO2 VBG O2 Saturation VBG Base Excess Sodium Potassium Chloride Carbon Dioxide Anion Gap BUN Creatinine Estimated GFR/1.73 m2 Glucose Calcium Total Bilirubin AST ALT Alkaline Phosphatase Troponin I NT-Pro-B Natriuret Pep Total Protein Albumin COVID-19 Source SARS-CoV-2 (PCR) Influenza Type A (PCR) Influenza Type B (PCR) RSV (PCR) Last Vital Signs Temp 36.3 C L 07/09/21 12:44 Pulse 70 07/09/21 13:50 Resp 21 07/09/21 13:50 BP 131/65 07/09/21 12:05 Pulse Ox 91 L 07/09/21 13:50
[2021-07-09] MEDS: Normal Saline Flush 10 ML SYR IVP (14:45)
[2021-07-09] MEDS: Apixaban 5 MG TAB PO (21:13)
[2021-07-09] MEDS: Calcium 600mg/Vit D 200U TAB 1 TAB PO (21:14)
[2021-07-09] MEDS: amLODIPine 5 MG TAB 7.5 MG PO (21:14)
[2021-07-09] MEDS: Atorvastatin 40 MG TAB 80 MG PO (21:14)
[2021-07-10] VITALS (13 sets, daily range): BP systolic 109–134; BP diastolic 50–78; PULSE 58–84; RESP 8–21; TEMP 36.6–37.3; O2SAT 8–94
[2021-07-10 06:09] LABS: Anion Gap 0.6 mmol/L (3-11); BUN 39 mg/dL (7-18); CO2 39.4 mmol/L (21.0-32.0); Calcium 8.9 mg/dL (8.5-10.1); Chloride 101 mmol/L (98-107); Estimated GFR 24.36 (mL/min/1.73m2); Glucose 96 mg/dL (74-106); Magnesium 1.7 mg/dL (1.8-2.4); Potassium 4.3 mmol/L (3.5-5.1); Sodium 141 mmol/L (136-145)
[2021-07-10 06:23] LABS: Hemoglobin A1C 6.9 % (<5.7)
[2021-07-10 06:43] LABS: Vitamin D 25 Total 49.9 ng/mL (30-100)
[2021-07-10] MEDS: Calcium 600mg/Vit D 200U TAB 1 TAB PO ×2 (08:09→21:10)
[2021-07-10] MEDS: Apixaban 5 MG TAB PO ×2 (08:09→21:11)
[2021-07-10] MEDS: Pantoprazole 40 MG TABCR PO (08:09)
[2021-07-10] MEDS: Albuterol/Ipratropium 3 ML UPD VIAL UPD ×3 (08:10→21:12)
[2021-07-10] MEDS: Normal Saline Flush 10 ML SYR IVP ×3 (08:18→15:31)
--- NOTE | 2021-07-10 08:54 | INITIAL_ITS ---
- If Service Date Differs Date of service: 07/10/21 Time of Service: 08:54 Care Management Initial Assess REASON FOR HOSPITALIZATION:: CHF exacerbation PAST MEDICAL HISTORY/PAST SURGICAL HISTORY:: All Active Problems. Hypoxemia (Acute). Diabetes (Chronic). Dependent on walker for ambulation (Chronic). Obesity hypoventilation syndrome (Chronic). Obesity + Severe YARELY + Chronic Hypercapnia. Chronic respiratory failure with hypercapnia (Chronic). Rest rictive lung disease (Chronic ~03/2014). PFTs validated 04/04/2014-->see scanned docs. B12 deficiency (Chronic). Start B12 injections; elevated MCV. Sedentary lifestyle (Chronic). Sciatica of right side without back pain (Acute). RX Medrol. Risk for falls (Chronic). Chronic anticoagulation (Chronic). AF--Apixaban. Renal calculi (Chronic). Non obstructive per CT. Chronic low back pain (Chronic 07/24/15). CT-lumbar spine 2019--. Severe multilevel degenerative changes in the lumbar spine resulting in neural foraminal and central spinal canal stenosis. Obstructive sleep apnea (Chronic 02/23/14). Sleep Med Referral, 04/17/2019-->Very severe YARELY; CPAP ([facility]) with continuous O2, new Panda C-Pap 01/2021. Anemia (Chronic). Atrial fibrillation (Chronic). Apixaban. CHF (congestive heart failure) (Chronic 02/23/14). Preserved EF (10/2020 ECHO). Hypertension (Chronic). Hyperlipidemia (Chronic). Type II diabetes mellitus (Chronic). Full code status (Chronic). Palliative care status (Chronic). Dependence on supplemental oxygen (Chronic). YARELY + Pulm HTN. CKD (chronic kidney disease) (Chronic). Pulmonary hypertension (Chronic). Medical History. Adult body mass index 50.0-59.9. Carpal tunnel syndrome, bilateral (12/17/16). Dietary counseling. reviewed sodium levels in her food, how to count mg, goal of 1500 mg daily due to CHF. Edentulous. Female hirsutism. Folate deficiency. Low 12/2018; resolved 05/2019 labs; discontinued 02/05/2020. h/o elbow fx. H/O fracture of nose. H/O rotator cuff tear. Heme + stool[place] [facility] [place] Peptic Duodenitis (pathology report); repeat hemoccults NEG 11/2019. HTN (hypertension). Insulin dependent diabetes mellitus. Iron deficiency. [place] 05[place]23/19 [place] [facility] [place]; discont supp iron & vit c 02/05/2020; Hgb stable and iron constipating; she will obtain dietarily. Lipoma of arm. YARELY (obstructive sleep apnea). Peptic ulcer of duodenum. [facility] [place] reports upper endoscopy; RX Carafate. Spinal stenosis, lumbar. Surgical History. Biopsy, Temporal Artery (01/18/15). DR.C YOUNG. [place] [facility] [place] History of carpal tunnel repair. Left- 1998. Right- 2017. History of shoulder surgery. Right shoulder repair - 2004. History of total abdominal hysterectomy and bilateral salpingo-oophorectomy (~02/1999). History of total bilateral knee replacement PREVIOUS FUNCTIONAL STATUS/SOCIAL/FAMILY SUPPORTS:: Jane resides at home with her son Abdias in [facility]. 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 She is independent with ADLs in the community, her son provides her transportation. She utilizes a walker and cane at home. She also has a CPAP which she reports was given to her, but she does not use. She was previously on oxygen but reports she no longer required oxygen about five years ago. CURRENT FUNCTIONAL STATUS:: Mohan was sitting up in her chair when CM met with her. She stated that she is feeling ok today. She reported that she worked with PT today, and is expecting to meet with them again. She also reported that MD is attempting to qualify her for a Trilogy machine. She stated that she has HH RN, PT at home. She feels very well supported at home by her son and other family/friends in the area. CM will continue to follow. ADVANCE DIRECTIVES:: On file; son Ricco Alamo as agent. Has patient been provided with info about the portal/API?: Yes Did the patient sign up for the portal?: No CODE STATUS:: Full Code INSURANCE COVERAGE / FINANCIAL ISSUES:: YUDITH/ [employer] 100% CURRENT HOME/COMMUNITY SERVICES/EQUIPMENT:: No current services at home. FWW, cane, and CPAP which she reports she does not use. PRIMARY CARE PHYSICIAN:: Laverne Sung POTENTIAL DISCHARGE NEEDS:: Evaluations for further needs, follow up appointments. PATIENT/FAMILY EDUCATION NEEDS:: Discharge education, limitations, follow-up plan of care, Ask Me Three education and self-management discussion. ANTICIPATED BARRIERS TO DISCHARGE:: None identified at this time. TRANSPORTATION:: Via private vehicle by family. PLAN:: Jane will be discharged home when medically ready per provider. She will continue to be evaluated for discharge needs, follow up with her PCP and plan of care as prescribed. She will transport via private vehicle with her son. CM will continue to follow.
--- NOTE | 2021-07-10 09:36 | IN_ITS ---
Date of service: 07/10/21 Time of Service: 09:36 PT Notes Visit Reasons: CHF exacerbation Physical Therapy Inpatient Initial Evaluation Date:? 07/10/2021 Referring Doctor:? Laverne Cai NP PT Orders: PT CONSULT: Evaluate and Treat Precautions: Activity as tolerated. Patient Profile/Admitting Diagnosis: Flo catalan is a 75-year-old female with admitting diagnosis of congestive heart failure exacerbation, atrial fibrillation, chronic respiratory failure with hypercapnia, hypoxemia, pulmonary hypertension, and chronic kidney disease referred for physical therapy for functional mobility assessment and progression. PMHx: All Active Problems? Hypoxemia (Acute) Diabetes (Chronic) Dependent on walker for ambulation (Chronic) Obesity hypoventilation syndrome (Chronic) Obesity + Severe YARELY + Chronic Hypercapnia Chronic respiratory failure with hypercapnia (Chronic) Restrictive lung disease (Chronic ~03/2014) PFTs validated 04/04/2014-->see scanned docsB12 deficiency (Chronic) Start B12 injections; elevated MCVSedentary lifestyle (Chronic) Sciatica of right side without back pain (Acute) RX Medrol Risk for falls (Chronic) Chronic anticoagulation (Chronic) AF--Apixaban Renal calculi (Chronic) Non obstructive per CT Chronic low back pain (Chronic 07/24/15) CT-lumbar spine 2019-- Severe multilevel degenerative changes in the lumbar spine resulting in neural foraminal and central spinal canal stenosis. Obstructive sleep apnea (Chronic 02/23/14) Sleep Med Referral, 04/17/2019-->Very severe AYRELY; CPAP ([employer]) with continuous O2, new Panda C-Pap 01/2021 Anemia (Chronic) Atrial fibrillation (Chronic) Apixaban CHF (congestive heart failure) (Chronic 02/23/14) Preserved EF (10/2020 ECHO)Hypertension (Chronic) Hyperlipidemia (Chronic) Type II diabetes mellitus (Chronic) Full code status (Chronic) Palliative care status (Chronic) Dependence on supplemental oxygen (Chronic) YARELY + Pulm HTNCKD (chronic kidney disease) (Chronic) Pulmonary hypertension (Chronic) Medical History? Adult body mass index 50.0-59.9 Carpal tunnel syndrome, bilateral (12/17/16) Dietary counseling reviewed sodium levels in her food, how to count mg, goal of 1500 mg daily due to CHF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 Folate deficiency Low 12/2018; resolved 05/2019 labs; discontinued 02/05/2020h/o elbow fx H/O fracture of nose H/O rotator cuff tear Heme + stool [facility] Upper GI Endoscopy Peptic Duodenitis (pathology report); repeat hemoccults NEG 11/2019HTN (hypertension) Insulin dependent diabetes mellitus Iron deficiency EGD 05/23/19 at [facility]; discont supp iron & vit c 02/05/2020; Hgb stable and iron constipating; she will obtain dietarilyLipoma of arm YARELY (obstructive sleep apnea) Peptic ulcer of duodenum [facility] Path reports upper endoscopy; RX CarafateSpinal stenosis, lumbar Surgical History? Biopsy, Temporal Artery (01/18/15) DR.C YOUNGColonoscopy - MAC (08/14/16) History of carpal tunnel repair Left- 1998 Right- 2017 History of shoulder surgery Right shoulder repair - 2004History of total abdominal hysterectomy and bilateral salpingo-oophorectomy (~02/1999) History of total bilateral knee replacement. Social History/Home Situation: Lives in a private home trailer with her son Equipment Owned/DME: FWW, CPAP Subjective: Agreeable to PT consult. Feels a lot better than she did yesterday. Not as short of breath as she felt yesterday. Both legs are feeling little wider than they did yesterday. Objective: OIL REFINER Makenna towards the tail end of her morning care with patient. Present during transfer of patient from bedside commode back onto chair Mental Status: Alert and oriented x4 Pain: Denies ROM: Right Upper Extremity: Shoulder Flexion WFL. Shoulder abduction WFL. Elbow flexion WFL. Wrist flexion WFL. Functional opening and closing of hand WFL. Left Upper Extremity: Shoulder Flexion WFL. Shoulder abduction WFL. Elbow flexion WFL. Wrist flexion WFL. Functional opening and closing of hand WFL. Right Lower Extremity: Hip flexion WFL. Hip abduction WFL. Knee flexion WFL. Ankle dorsiflexion WFL. Ankle plantarflexion WFL. Left Lower Extremity: Hip flexion WFL. Hip abduction WFL. Knee flexion WFL. Ankle dorsiflexion WFL. Ankle plantarflexion WFL. Left Lower Extremity: ? WFL Strength: Right Upper Extremity: Shoulder flexors 4-/5. Shoulder abductors 4-/5. Elbow flexors 4/5. Elbow extensors 4/5. Poacher Wringer Operator strong. Left Upper Extremity: Shoulder flexors 4-/5. Shoulder abductors 4-/5. Elbow flexors 4/5. Elbow extensors 4/5. Poacher Wringer Operator strong. Right Lower Extremity: Hip flexors 4-/5. Hip abductors 4-/5. Knee flexors 4-/5. Knee extensors 4-/5. Ankle dorsiflexors 4-/5. Ankle plantarflexors 4-/5. Left Lower Extremity: Hip flexors 4-/5. Hip abductors 4-/5. Knee flexors 4-/5. Knee extensors 4-/5. Ankle dorsiflexors 4-/5. Ankle plantarflexors 4-/5. Bed Mobility/Transfers: Sit to stand contact-guard assist Stand to sit standby assist Bedside commode to bedside chair transfer contact-guard assist Gait: Tolerates up to 50 feet x 3 using front wheel walker with full weight bearing using front wheeled walker with step through Gait pattern with oxygen supplementation increased to 8 L/min and patient saturating between 87% to 91%. Balance: Static Sitting:? Good Dynamic Sitting:? Good Static Standing: Fair Dynamic Standing:? Fair Special Tests: Mobility Limitations Standardized Measure [facility] 6 clicks Basic Mobility Inpatient Short Form: Raw Score:? 178 ? CMS Score: ? 47% deficit Informed Consent/Education:? Patient instructed in purpose of PT consult and plan of care. ASSESSMENT: Patient presents with clinical signs and symptoms consistent with current/admitting diagnoses that have resulted to mobility limitations, gait instability, generalized weakness, and overall ADL decline as demonstrated by the following impairment level findings: 1. Decreased strength to BUE/LE major muscle groups 2. Impaired sitting/standing balance 3. Impaired activity tolerance 4. Shortness of breath 5. Swelling in B legs Impairments are contributing to the following functional limitations: 1. Decline in bed mobility skills 2. Decline in transfer skills 3. Difficulty with ambulation without assistive device and physical assistance 4. Increased completion time for mobility ADL performance 5. Increased risk for falls 6. Difficulty with managing steps alone safely Patient is assessed as a 62719 moderatecomplexity based on the following: History: 75-year-old female past medical history as indicated above Examination: Demonstrable impairment in strength, balance, and mobility level with underlying impairments and functional limitations as exhibited above as well as deficit score of 47% utilizing the [facility] Mobility Inpatient Short Form Presentation: Evolving Decision Makin moderate complexity Goals X1 week 1. Supine-Sit independent 2. Sit-Supine independent 3. Sit-Stand independent 4. Stand-Sit independent 5. Bed-Chair independent 6. Chair-Bed independent 7. Independent gait on level surface with use of least restrictive device for at least 300 feet without report of pain nor dyspnea 8. Independent stair negotiation while holding onto bilateral rails for at least 5 steps without report of pain nor dyspnea 9. Good static and dynamic standing balance/tolerance DISCHARGE RECOMMENDATIONS: Patient will benefit from home health PT services in order to progress mobility level using least restrictive assistive ambulatory device, assess home safety, identify additional equipment needs, and establish a functional maintenance program that will increase ability of patient to remain at home. No equipment needs at this time TREATMENT CODE/TIME: 81589 x 25 minutes, 10394 x 25 minutes getting at 9:36 AM. Thank you for the opportunity to participate in the care of this patient. Ernestine Nieto PT, DPT, CLT [facility] [place], [place]
[2021-07-10] MEDS: Magnesium Oxide 400 MG TAB 800 MG PO (11:03)
[2021-07-10] MEDS: Budesonide/Formoterol 80/4.5 6.9 GM 60 PUFF INH IH ×2 (11:03→21:29)
[2021-07-10] MEDS: methylPREDNISolone SUCC 125 MG VIAL IVP (11:04)
--- NOTE | 2021-07-10 11:15 | CHAPLAIN ---
Mohan and I remembered each other from previous admissions. She was up in the chair and easily engaged in a conversation. She lives with her son, who is the trucking manager at [employer]. Mohan said that since I'd seen her last, she has two new greatgrandsons. She has lived with her son for a long time and he seems to be supportive. She is also followed by Palliative Care and said she'll ask her nurse to let Dr. Bowen know she is here.
[2021-07-10] MEDS: Insulin Aspart 300 UNITS/3 ML PEN SC ×2 (12:20→17:07)
--- NOTE | 2021-07-10 13:05 | W.PM.PROGNOT ---
Date of Service Date of service: 07/10/21 Time of Service: 12:19 Assessment and Plan Assessment and plan (1) CHF (congestive heart failure): Start date: 07/10/21 Start time: 12:19 Status: Chronic Assessment and plan: Improved sx from yesterday No JVD today. 3.5 L output (see subjective) SOB likely underlying COPD component as well, exacerbated, likely why she is still requiring high doses oxygen. Qualifies for trilogy, patient will likely be more compliant with this unit as she does not like her bipap machine Will change drip to BID pushes, down 3 kg from admission. Continue to monitor I/O. Qualifiers: Heart failure type: unspecified Heart failure chronicity: chronic Qualified Code(s): I50.9 - Heart failure, unspecified (2) Atrial fibrillation: Start date: 07/10/21 Start time: 12:19 Status: Chronic Assessment and plan: as above rate controlled continue amlodipine Qualifiers: Atrial fibrillation type: unspecified Qualified Code(s): I48.91 - Unspecified atrial fibrillation (3) Chronic respiratory failure with hypercapnia: Start date: 07/09/21 Start time: 12:19 Status: Chronic Assessment and plan: She has hyperventilation YARELY she does not take any COPD medications Will place on symbicort 80, solumedrol and albuterol IH prn, [facility]ie [facility] Pulmonary consult (4) Hypoxemia: Start date: 07/10/21 Start time: 12:19 Status: Acute Assessment and plan: as above (5) Diabetes: Start date: 07/10/21 Start time: 12:19 Status: Chronic Assessment and plan: Patient has CGM continue with FS and SSI, will also continue home dosing of long acting levemir. Monitor glucose levels they have been under 180's consistently (6) Chronic anticoagulation: Start date: 07/10/21 Start time: 12:19 Status: Chronic Assessment and plan: on apixaban (7) Hypertension: Start date: 07/10/21 Start time: 12:19 Status: Chronic Assessment and plan: continue home medicatons monitor bp Qualifiers: Hypertension type: essential hypertension Qualified Code(s): I10 - Essential (primary) hypertension (8) Hyperlipidemia: Start date: 07/10/21 Start time: 12:19 Status: Chronic Assessment and plan: Continue atorvastatin Qualifiers: Hyperlipidemia type: unspecified Qualified Code(s): E78.5 - Hyperlipidemia, unspecified (9) Pulmonary hypertension: Start date: 07/10/21 Start time: 12:19 Status: Chronic Assessment and plan: requiring oxygen d/t this. Moderate (10) CKD (chronic kidney disease): Start date: 07/10/21 Start time: 12:19 Status: Chronic Assessment and plan: as baseline continue to monitor discussed with Dr. Sanchez Qualifiers: Chronic kidney disease stage: stage 3 (moderate) Qualified Code(s): N18.3 - Chronic kidney disease, stage 3 (moderate) Subjective Subjective Patient reports: no new complaints Interval history since last seen: SOB improved, Net of negative 3457 output in 24 Hours. Still requiring high oxygen hugo. JVD is gone, bilateral edema improved, pt stated that she was on bipap for about 6 hours last night. Will d/c drip and place on BID bumex. Down 3 kg in 24 hours. Able to eat now and drink without difficulty, ability to complete sentences has improved. She does require oxygen at all times and has qualified for trilogy, she does no wear her bipap at home, states she has both bipap and cpap, but does not like the mask. Pulmonary consulted. Exam Const General: cooperative, comfortable and ill appearing chronically Nutritional Appearance: obese centrally obese Orientation: alert, awake and oriented x3 HENMT Head: normal to inspection and atraumatic Ears: hearing grossly normal bilaterally Mouth: moist mucous membranes Eyes Eyelids: eyelids normal Pupils: PERRL EOM: EOM intact bilaterally Neck Neck: normal visual inspection and JVD Lymphatic: no lymphadenopathy noted Chest Chest: normal inspection of the chest Resp Effort & Inspection: abnormal respiratory effort, able to speak in complete sentences (still with some degree of SOB but much improved and can complete short sent) and cough Quality of cough: dry Auscultation: diminished lung sounds (Very diminished, restricitive air hugo) bilaterally Cardio Jugular venous pressure: no JVD Rate: abnormal rate Rhythm: abnormal rhythm and abnormal rhythm irregularly irregular GI Inspection: large pannus and obesity Auscultation: normal bowel sounds General: No CVA tenderness and deferred Skin General skin exam: no rashes or lesions noted Neuro General: patient alert, patient awake and patient oriented x3 Cognition: normal cognition Speech: speech normal Gait: normal gait Extrem General: abnormal to inspection and full ROM Right lower extremity: edema (improved in 24 hours) Details: pitting and 1+ Left lower extremity: edema (improved in 24 hours) Details: pitting and 1+ Psych Appearance: disheveled Mental Status: mental status grossly normal Mood: congruent mood Affect: normal affect Attitude: cooperative Objective Last Vital Signs Temp 37.3 C 07/10/21 11:27 Pulse 72 07/10/21 11:27 Resp 18 07/10/21 11:27 BP 125/56 L 07/10/21 11:27 Pulse Ox 90 L 07/10/21 11:27 Laboratory Results - last 24 hr 07/09/21 07/10/21 07/10/21 13:45 05:30 05:30 ABG Sample Site Unknown ABG pH 7.31 L ABG pCO2 70 H* ABG pO2 48 L ABG HCO3 35 H ABG Total CO2 33 H ABG O2 Saturation 81 L ABG Base Excess 9 H Sodium 141 Potassium 4.3 Chloride 101 Carbon Dioxide 39.4 H Anion Gap 0.6 L BUN 39 H Creatinine 2.0 H Estimated GFR/1.73 m2 24.36 Glucose 96 D Hemoglobin A1c 6.9 H Calcium 8.9 Magnesium 1.7 L 25-OH Vitamin D Total 07/10/21 05:30 ABG Sample Site ABG pH ABG pCO2 ABG pO2 ABG HCO3 ABG Total CO2 ABG O2 Saturation ABG Base Excess Sodium Potassium Chloride Carbon Dioxide Anion Gap BUN Creatinine Estimated GFR/1.73 m2 Glucose Hemoglobin A1c Calcium Magnesium 25-OH Vitamin D Total 49.9
[2021-07-10] MEDS: Acetaminophen 500 MG TAB PO (14:34)
[2021-07-10] MEDS: Docusate Sodium 100 MG CAP PO (15:30)
[2021-07-10] MEDS: Bumetanide 1 MG/4 ML VIAL IVP (15:31)
[2021-07-10] MEDS: Atorvastatin 40 MG TAB 80 MG PO (21:11)
[2021-07-10] MEDS: methylPREDNISolone SUCC 40 MG VIAL IVP (21:11)
[2021-07-10] MEDS: amLODIPine 5 MG TAB 7.5 MG PO (21:28)
[2021-07-11] VITALS (14 sets, daily range): BP systolic 109–142; BP diastolic 59–73; PULSE 55–85; RESP 8–20; TEMP 36.4–36.8; O2SAT 91–98
[2021-07-11] MEDS: Albuterol/Ipratropium 3 ML UPD VIAL UPD ×2 (00:07→04:02)
[2021-07-11 07:05] LABS: Anion Gap 6.5 mmol/L (3-11); BUN 53 mg/dL (7-18); CO2 35.5 mmol/L (21.0-32.0); CREATININE 2.5 mg/dL (0.55-1.02); Calcium 8.6 mg/dL (8.5-10.1); Chloride 95 mmol/L (98-107); Estimated GFR 18.83 (mL/min/1.73m2); Glucose 329 mg/dL (74-106); Magnesium 1.8 mg/dL (1.8-2.4); Potassium 4.3 mmol/L (3.5-5.1); Sodium 137 mmol/L (136-145)
--- NOTE | 2021-07-11 07:53 | PUCON_ITS ---
General Date Of Service Date of service: 07/11/21 Time of Service: 07:53 Reason for Consult: Need for Trilogy? Assessment and Plan Assessment and plan (1) Obesity hypoventilation syndrome: Status: Chronic (2) Obstructive sleep apnea: Status: Chronic (3) Pulmonary hypertension: Status: Chronic (4) CHF (congestive heart failure): Status: Chronic Assessment and plan: This is a 75 yo female with CHF, A. fib, complex sleep disordered breathing with OHS and likely pseudo-restriction from obesity who is admitted for worsened hypoxia and CHF exacerbation. I was consulted to assess her potential need for an AVAPS ventilation device such as Trilogy. Her current NIV (BiPAP with a back up rate) seems appropriate to me. She does not have a clear defining pulmonary diagnosis that would necessitate AVAPS. She should continue to follow up with sleep medicine for her further needs. Another major issues is her compliance. Regardless of the NIV she uses, if she is not compliant then she will not have the benefits of the treatment. I did recommend she call her son to see if he can bring in her home BiPAP unit for use in hospital. OHS/YARELY/Complex sleep disordered breathing - Trilogy is not indicated - no clear pulmonary pathology - recommend she have her home BiPAP unit brought in to use while admitted - Per sleep medicine note her BiPAP settings are: IMAX:25, Deangelo:4, PSmin:2, PSmax:8, 3LPM bleed and a back up rate of 10bpm - discontinue systemic steroids - these will worsen her volume overload - discontinue Symbicort - no indication for this Pulmonary Hypertension, likely group 2 - optimization of cardiac disease Qualifiers: Heart failure type: unspecified Heart failure chronicity: chronic Qualified Code(s): I50.9 - Heart failure, unspecified History of Present Illness Narrative: This is a 75 yo female with significant cardiac disease who is admitted for CHF exacerbation. She sees cardiology and is improving with diuresis. She also hold a diagnosis of YARELY and likely OHS for which she sees sleep medicine. She is managed with a BiPAP: IMAX:25, Deangelo:4, PSmin:2, PSmax:8, 3LPM bleed and a back up rate of 10bpm given the additional concern for central sleep apnea. This is an appropriate mode for her current issues. She is not overly compliant with her BiPAP even after getting her new device, but we did discuss the importance of her wearing it for as long as she possibly can while sleeping. She does not hold any pulmonary diagnosis. She is a never smoker, although has had some second hand smoke exposure from her parents. She has never had asthma. She denies any other possible inhalational exposures. She had used an inhaler in the past, for reasons she is unsure about, and states it really did not do much for her. Her breathing is getting better and she again complains of irritation with wearing the full face mask with her BiPAP. Review of Systems All systems reviewed & are unremarkable except as noted in HPI and below PFSH All Active Problems (Updated 07/11/21 @ 11:32 by Jessie Ugalde MD) Hypoxemia (Acute) Diabetes (Chronic) Dependent on walker for ambulation (Chronic) Obesity hypoventilation syndrome (Chronic) Obesity + Severe YARELY + Chronic Hypercapnia Chronic respiratory failure with hypercapnia (Chronic) B12 deficiency (Chronic) Start B12 injections; elevated MCV Sedentary lifestyle (Chronic) Sciatica of right side without back pain (Acute) RX Medrol Risk for falls (Chronic) Chronic anticoagulation (Chronic) AF--Apixaban Renal calculi (Chronic) Non obstructive per CT Chronic low back pain (Chronic 07/24/15) CT-lumbar spine 2019-- Severe multilevel degenerative changes in the lumbar spine resulting in neural foraminal and central spinal canal stenosis. Obstructive sleep apnea (Chronic 02/23/14) Sleep Med Referral, 04/17/2019-->Very severe YARELY; CPAP ([facility]) with continuous O2, new Panda C-Pap 01/2021 Anemia (Chronic) Atrial fibrillation (Chronic) Apixaban CHF (congestive heart failure) (Chronic 02/23/14) Preserved EF (10/2020 ECHO) Hypertension (Chronic) Hyperlipidemia (Chronic) Type II diabetes mellitus (Chronic) Full code status (Chronic) Palliative care status (Chronic) Dependence on supplemental oxygen (Chronic) YARELY + Pulm HTN CKD (chronic kidney disease) (Chronic) Pulmonary hypertension (Chronic) Medical History (Updated 07/11/21 @ 11:32 by Jessie Ugalde MD) Adult body mass index 50.0-59.9 Carpal tunnel syndrome, bilateral (12/17/16) Dietary counseling reviewed sodium levels in her food, how to count mg, goal of 1500 mg daily due to CHF 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 Folate deficiency Low 12/2018; resolved 05/2019 labs; discontinued 02/05/2020 h/o elbow fx H/O fracture of nose H/O rotator cuff tear Heme + stool [facility] Upper GI Endoscopy Peptic Duodenitis (pathology report); repeat hemoccults NEG 11/2019 HTN (hypertension) Insulin dependent diabetes mellitus Iron deficiency EGD 05/23/19 at [facility]; discont supp iron & vit c 02/05/2020; Hgb stable and iron constipating; she will obtain dietarily Lipoma of arm YARELY (obstructive sleep apnea) Peptic ulcer of duodenum [facility] Path reports upper endoscopy; RX Carafate Restrictive lung disease (~03/2014) PFTs validated 04/04/2014-->see scanned docs Spinal stenosis, lumbar Surgical History Biopsy, Temporal Artery (01/18/15) DR.C YOUNG Colonoscopy - MAC (08/14/16) History of carpal tunnel repair Left- 1998 Right- 2017 History of shoulder surgery Right shoulder repair - 2004 History of total abdominal hysterectomy and bilateral salpingo-oophorectomy (~02/1999) History of total bilateral knee replacement Family History Mother Heart disease Father Heart disease Lung cancer Brother Heart disease AAA (abdominal aortic aneurysm, ruptured) Brother Obesity Son No problems noted. Daughter Stillborn, abnormal Daughter No problems noted. 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 Pets and animals: Yes Pets and animals: cat(s) Sexually active: No Do you think of yourself as: straight/heterosexual Current gender identity: female What is your relationship status?: How often do you talk on the phone with friends or family?: once per week How often do you get together with friends or relatives?: once per week Panel score (0-1 are the most socially isolated patients): 0 What type of physical activity do you participate in: none and sedentary lifestyle Special jakob needs: No Agree to transfusion: Yes Seatbelt use: always In current or past relationships, have you been: made to feel afraid Do you feel safe at home: Yes Do you feel safe in your relationship?: Yes Additional Social history: Lives with son Abdias in house trailer. He works. He never left home. She is on home oxygen. Spends most of her day watching TV, sitting on couch. Has a cat. Never smoked. Has been 3 times. 2 husbands have , from one. Daughter lives in [place] with her 8 kids. Visit Medication and Allergies Active Medications Generic Name Dose Route Start Last Admin Trade Name Freq PRN Reason Stop Dose Admin Acetaminophen 500 mg 07/09/21 11:27 07/10/21 14:34 Acetaminophen 500 Mg Tab PO 500 mg Q6H PRN PRN Administration Al Hydrox/Mg Hydrox/Simethicone 30 ml 07/09/21 11:19 Mylanta Suspension 30 Ml Cup PO Q2H PRN PRN Albuterol Sulfate 2 puff 07/10/21 08:40 Albuterol Hfa 8 Gm 60 Puff Inh IH Q6H PRN PRN Albuterol/Ipratropium 3 ml 07/10/21 12:00 07/11/21 04:02 Albuterol/Ipratropium 3 Ml Upd Vial UPD 3 ml Q4H OLIVIA Administration Amlodipine Besylate 7.5 mg 07/09/21 22:00 07/10/21 21:28 Amlodipine 5 Mg Tab PO 7.5 mg HS OLIVIA Administration Apixaban 5 mg 07/09/21 20:00 07/10/21 21:11 Apixaban 5 Mg Tab PO 5 mg BID OLIVIA Administration Atorvastatin Calcium 80 mg 07/09/21 22:00 07/10/21 21:11 Atorvastatin 40 Mg Tab PO 80 mg HS OLIVIA Administration Budesonide/Formoterol Fumarate 2 puff 07/10/21 08:30 07/10/21 21:29 Budesonide/Formoterol 80/4.5 6.9 Gm 60 Puff Inh IH 2 puff BID OLIVIA Administration Bumetanide 1 mg 07/10/21 16:00 07/10/21 15:31 Bumetanide 1 Mg/4 Ml Vial IVP 1 mg BID DIURETIC OLIVIA Administration Calcium/Vitamin D 1 tab 07/09/21 20:00 07/10/21 21:10 Calcium 600mg/Vit D 200u Tab PO 1 tab BID OLIVIA Administration Device 1 each 07/10/21 09:00 Inhaler, Assist Device MC DIRECTED OLIVIA Dextrose 0 gm 07/09/21 11:29 Glucose 40% Oral Solution 15 Gm/37.5 Gm Tube PO DIRECTED PRN Dextrose/Water 0 gm 07/09/21 11:29 Dextrose 50%-Water 25 Gm/50 Ml Syr IVP DIRECTED PRN Dimethicone/Zinc Oxide 0 gm 07/09/21 11:17 Yudy Protect Cream 142 Gm Tube TP PRN PRN Docusate Sodium 100 mg 07/09/21 11:19 07/10/21 15:30 Docusate Sodium 100 Mg Cap PO 100 mg TID PRN PRN Administration Fluticasone Propionate 0 gm 07/09/21 11:27 Fluticasone Nasal [place] 16 Gm Btl NS DAILY PRN PRN allergy symptoms Insulin Aspart 0 units 07/09/21 12:00 07/10/21 17:07 Insulin Aspart 300 Units/3 Ml Pen SC 6 units 0800,1200,1700 [facility] Administration Protocol Insulin Detemir 30 units 07/09/21 22:00 07/10/21 21:12 Insulin Detemir 300 Units/3 Ml Pen SC 30 units HS [facility] Administration Magnesium Hydroxide 30 ml 07/09/21 11:19 Milk Of Magnesia 30 Ml Cup PO DAILY PRN PRN Methylprednisolone Sodium Succinate 40 mg 07/10/21 22:00 07/10/21 21:11 Methylprednisolone Succ 40 Mg Vial IVP 40 mg Q12H OLIVIA Administration Pantoprazole Sodium 40 mg 07/10/21 07:30 07/10/21 08:09 Pantoprazole 40 Mg Tabcr PO 40 mg DAILY@0730 OLIVIA Administration Polyethylene Glycol 17 gm 07/09/21 11:19 Polyethylene Glycol 3350 17 Gm Packet PO DAILY PRN PRN Constipation Sodium Chloride 0 ml 07/09/21 14:27 07/10/21 15:31 Normal Saline Flush 10 Ml Syr IVP 10 ml PRN PRN Administration Allergies codeine Allergy (Severe, Verified 07/09/21 09:13) Swelling/Edema furosemide [From Lasix] Allergy (Severe, Verified 07/09/21 09:13) Swelling/Edema morphine Allergy (Severe, Verified 07/09/21 09:13) Swelling/Edema peanut Allergy (Severe, Verified 07/09/21 09:13) tree nut Allergy (Severe, Verified 07/09/21 09:13) acetaminophen [From Percocet] Allergy (Intermediate, Verified 07/09/21 09:13) ITCHY adhesive tape Allergy (Intermediate, Verified 07/09/21 09:13) Skin Rash oxycodone HCl [From Percocet] Allergy (Intermediate, Verified 07/09/21 09:13) ITCHY apricot Allergy (Unknown, Uncoded 07/09/21 09:13) Exam Const Other: Gen: NAD, normal respiratory effort, obese HENT: PERRL Chest: No respiratory distress, normal appearance of chest, clear to auscultation bilaterally, scattered bibasilar crackles, no wheezes, normal inspiratory effort Heart: regular rate and rhythym, no murmurs, rubs or gallops Abdomen: Non-distended, soft, non tender Extremities: No clubbing, 2+ edema up to knees, cyanosis, rashes Neuro: AAOx3 , non focal Psych: cooperative, appropriate mental affect Results Last Vital Signs Temp 36.6 C 07/11/21 02:57 Pulse 85 07/11/21 02:57 Resp 18 07/11/21 04:11 BP 129/70 07/11/21 02:57 Pulse Ox 94 07/11/21 03:24 Labs Result diagrams: 07/09/21 09:30 07/11/21 06:22 Labs: Laboratory Results - last 24 hr 07/11/21 06:22 Sodium 137 Potassium 4.3 Chloride 95 L Carbon Dioxide 35.5 H Anion Gap 6.5 BUN 53 H Creatinine 2.5 H Estimated GFR/1.73 m2 18.83 Glucose 329 H Calcium 8.6 Magnesium 1.8 Imaging Chest x-ray: report reviewed and image reviewed
[2021-07-11] MEDS: Budesonide/Formoterol 80/4.5 6.9 GM 60 PUFF INH IH (08:20)
[2021-07-11] MEDS: Apixaban 5 MG TAB PO ×2 (08:20→20:50)
[2021-07-11] MEDS: Bumetanide 1 MG/4 ML VIAL IVP (08:21)
[2021-07-11] MEDS: Calcium 600mg/Vit D 200U TAB 1 TAB PO ×2 (08:21→20:49)
[2021-07-11] MEDS: Insulin Aspart 300 UNITS/3 ML PEN SC ×3 (08:22→17:05)
[2021-07-11] MEDS: Normal Saline Flush 10 ML SYR IVP (08:23)
[2021-07-11] MEDS: Pantoprazole 40 MG TABCR PO (08:23)
[2021-07-11] MEDS: Docusate Sodium 100 MG CAP PO (08:23)
--- NOTE | 2021-07-11 10:25 | W.PM.PROGNOT ---
Date of Service Date of service: 07/11/21 Time of Service: 10:20 Assessment and Plan Assessment and plan (1) CHF (congestive heart failure): Start date: 07/11/21 Start time: 10:20 Status: Chronic Assessment and plan: Improved sx from yesterday No JVD today. PFT in past with no COPD fiound, will not qualify or trilogy. Stopped symbicort and prednisone. Asked to bring in bipap by Dr. Ugalde Edema decreased, breathing improved, oxygen improved from 8 L to 5 L. Will change BID pushes to once daily d/t bun/ creatinine down 3.3 kg from admission. Continue to monitor I/O. Qualifiers: Heart failure type: unspecified Heart failure chronicity: chronic Qualified Code(s): I50.9 - Heart failure, unspecified (2) Atrial fibrillation: Start date: 07/11/21 Start time: 10:20 Status: Chronic Assessment and plan: as above rate controlled continue amlodipine on apixaban Qualifiers: Atrial fibrillation type: unspecified Qualified Code(s): I48.91 - Unspecified atrial fibrillation (3) Chronic respiratory failure with hypercapnia: Start date: 07/11/21 Start time: 10:20 Status: Chronic Assessment and plan: She has hyperventilation YARELY, revealed, hypercapnia and on ABG, improving with diuresis (4) Hypoxemia: Start date: 07/11/21 Start time: 10:20 Status: Acute Assessment and plan: as above (5) Diabetes: Start date: 07/11/21 Start time: 10:20 Status: Chronic Assessment and plan: Patient has CGM continue with FS and SSI, will also continue home dosing of long acting levemir. Monitor glucose levels they have been under 180's consistently, however was given steroids and it increased glucose levels. The glucose levels should improve now off steroids, will not increase to Resistant at this time. (6) Chronic anticoagulation: Start date: 07/11/21 Start time: 10:20 Status: Chronic Assessment and plan: on apixaban (7) Hypertension: Start date: 07/11/21 Start time: 10:20 Status: Chronic Assessment and plan: continue home medicatons monitor bp Qualifiers: Hypertension type: essential hypertension Qualified Code(s): I10 - Essential (primary) hypertension (8) Hyperlipidemia: Start date: 07/11/21 Start time: 10:20 Status: Chronic Assessment and plan: Continue atorvastatin Qualifiers: Hyperlipidemia type: unspecified Qualified Code(s): E78.5 - Hyperlipidemia, unspecified (9) Pulmonary hypertension: Start date: 07/11/21 Start time: 12:19 Status: Chronic Assessment and plan: requiring oxygen d/t this. Moderate (10) CKD (chronic kidney disease): Start date: 07/11/21 Start time: 10:20 Status: Chronic Assessment and plan: as baseline continue to monitor discussed with Dr. Sanchez Qualifiers: Chronic kidney disease stage: stage 3 (moderate) Qualified Code(s): N18.3 - Chronic kidney disease, stage 3 (moderate) Subjective Subjective Patient reports: feels better Interval history since last seen: Breathing improved, down another kilogram. BUN and Creatinine up will change bumex to once daily dosing. She is at 5 L down from 8 L. She could possibly be discharged home tomorrow. No COPD, past PFT negative for airway disease. Exam Narrative Exam Narrative: Gen: NAD, normal respiratory effort, obese AAOx3 HENT: PERRLA Chest: No respiratory distress, normal appearance of chest, scattered bibasilar crackles, no wheezes, normal inspiratory effort Heart: regular rate and rhythym, no murmurs, rubs or gallops Abdomen: Non-distended, soft, non tender Extremities: No clubbing, 2+ edema up to knees, cyanosis, rashes Neuro: AAOx3 , non focal Psych: cooperative, appropriate mental affect Objective Last Vital Signs Temp 36.4 C L 07/11/21 07:53 Pulse 83 07/11/21 07:53 Resp 18 07/11/21 07:53 BP 110/60 07/11/21 07:53 Pulse Ox 95 07/11/21 07:53 Laboratory Results - last 24 hr 07/11/21 06:22 Sodium 137 Potassium 4.3 Chloride 95 L Carbon Dioxide 35.5 H Anion Gap 6.5 BUN 53 H Creatinine 2.5 H Estimated GFR/1.73 m2 18.83 Glucose 329 H Calcium 8.6 Magnesium 1.8
--- NOTE | 2021-07-11 10:57 | DM INPTCON_ITS ---
Date of service: 07/11/21 Time of Service: 10:57 Diabetes Inpatient Consult Reason for Visit: dm DESCRIPTION/ASSESSMENT: * 75 year old female admitted with hypoxemia with hx of Dm2, morbid obesity, YARELY, CHF, uses home 02. Most recent A1C (07/10/21) 6.9% indicates good glycemic control on current home Dm meds (levemire 30 u hs, aspart 30 u. May benefit from SGLT2i as with CHF. Meeting nutrient needs at this time. Not at nutritional risk. INTERVENTION: none needed at this time PLAN: will conitnue to follow and support. Time Spent in Nutritional Counseling and Treatment: 0
--- NOTE | 2021-07-11 12:22 | DSE_ITS ---
Date of service: 07/11/21 Time of Service: 10:00 DS: Diagnosis Discharge Diagnosis (1) CHF (congestive heart failure): Start date: 07/11/21 Start time: 10:00 Status: Chronic (2) Atrial fibrillation: Status: Chronic (3) Chronic respiratory failure with hypercapnia: Status: Chronic (4) Hypoxemia: Status: Acute (5) Diabetes: Status: Chronic (6) Chronic anticoagulation: Status: Chronic (7) Hypertension: Status: Chronic (8) Hyperlipidemia: Status: Chronic (9) Pulmonary hypertension: Status: Chronic (10) CKD (chronic kidney disease): Status: Chronic Discharge Plan Disposition Condition: Improving Discharge Details Reason For Visit: CHF Exacerbation Admit Date/Time: 07/09/21 10:44 Admit Provider: Jose Sanchez Attending Provider: Jose Sanchez Primary Care Provider: Laverne Sung Home Meds and New Rx's Prescriptions: No Action fluticasone propionate 50 mcg/actuation spray,suspension 1 spray NS DAILY PRN (Reason: allergy symptoms) Qty: 15.8 0RF (DME) pen needle, diabetic [BD Ultra-Fine Mini Pen Needle] 31 gauge x 3/16 needle See Rx Instructions .ROUTE .MEDSUPPLY Qty: 100 6RF Rx Instructions: for insulin administration qid dx E11.22 #360 Refill 3 insulin aspart U-100 [Novolog Flexpen U-100 Insulin] 100 unit/mL (3 mL) insulin pen See Rx Instructions subcut AC MDD 30 units Qty: 90 3RF Rx Instructions: 2-10 units subcut before meals; For diabetes as directed with meals sliding scale: 100:0units 101-150: 2 units 151-200: 4 units 201-250: 6 units 251-300: 8 units over 300: 10 units (DME) FreeStyle Bradley 2 Sensor Kit See Rx Instructions .ROUTE .MEDSUPPLY Qty: 2 11RF Rx Instructions: As directed; on insulin AC & HS for goal A1C 8% acetaminophen [Tylenol Extra Strength] 500 mg tablet 500 mg PO Q6H PRN0RF (DME) Oxygen Tank See Rx Instructions .ROUTE .MEDSUPPLY Qty: 1 0RF Rx Instructions: 2-3L via NC continuous cyanocobalamin (vitamin B-12) 1,000 mcg/mL kit 1,000 mcg subcut QMONTH Qty: 1 11RF Rx Instructions: May self-administer at home for low B12 pantoprazole [Protonix] 40 mg tablet,delayed release (DR/EC) 40 mg PO DAILY Qty: 90 3RF Rx Instructions: h/o GI bleed, stomach protection Eliquis 5 mg tablet 5 mg PO BID Qty: 180 3RF (DME) BD Eclipse Luer-Timi 3 mL 23 x 1 syringe See Rx Instructions .ROUTE .MEDSUPPLY Qty: 15 0RF Rx Instructions: for use with monthly self administered B12 injections bumetanide 1 mg tablet 1 mg PO BID Qty: 180 3RF Rx Instructions: Diuretic for heart and swelling or as directed atorvastatin 80 mg tablet 80 mg PO QHS Qty: 90 3RF Rx Instructions: Cholesterol Levemir FlexTouch U-100 Insuln 100 unit/mL (3 mL) insulin pen 30 unit subcut QHS 0RF Rx Instructions: decreased 07/04/21 by Doc amlodipine 5 mg tablet 7.5 mg PO HS 0RF Label Comments: TAKE ONE TABLET BY MOUTH AT BEDTIME FOR BLOOD PRESSURE(TAKE WITH AMLODIPINE 2,5 MG FOR TOTA DAILY DOSE 7.5 MG docusate sodium [Colace] 100 mg Capsule 100 mg PO TID PRN PRNQty: 0 0RF Calcium 600 with Vitamin D3 600 mg(1,500mg) -400 unit Tablet,Chewable 1 tab PO BID 0RF DS: Data Vitals/I&O Vitals and I&O: Vital Signs Temperature 36.5 C 07/11/21 11:27 Temperature Source Tympanic 07/11/21 11:27 Pulse 66 07/11/21 11:27 Pulse Rhythm Irregular 07/11/21 09:28 Pulse 65 07/10/21 00:28 Respiratory Rate 19 07/11/21 11:27 Respiratory Effort 07/11/21 09:28 Respiratory Depth Normal 07/11/21 09:28 Respiratory Pattern Normal 07/11/21 09:28 Blood Pressure 109/61 07/11/21 11:27 Blood Pressure Mean 69 07/10/21 00:28 Blood Pressure Position Supine 07/09/21 12:44 Pulse Oximetry 95 07/11/21 11:27 Oxygen Delivery Method Hi Flow Nasal Cannula 07/11/21 11:27 Oxygen Flow Rate 5 04/29/22 11:27 Fraction of Inspired Oxygen (FIO2) 40 07/11/21 03:24 Pain Level 0 07/11/21 11:27 Comment 07/11/21 02:57 Intake & Output 07/10/21 07/11/21 07/11/21 23:59 11:59 23:59 Intake Total 659.233 / 959.233 240 / 240 Output Total 525 / 2125 350 / 350 Balance 134.233 / -1165.767 -110 / -110 Weight 114.7 kg Intake: IV 39.233 / 39.233 Oral 620 / 920 240 / 240 Output: Urine 525 / 2125 350 / 350 Other: Urine Color Pale Light Carlee Yellow Urine Appearance Clear Clear Stool Size Smear Small Stool Characteristics Soft Soft Formed Brown Data Completed and Pending Labs on day of discharge: Labs from last 24 hours 07/11/21 06:22 Sodium 137 Potassium 4.3 Chloride 95 L Carbon Dioxide 35.5 H Anion Gap 6.5 BUN 53 H Creatinine 2.5 H Estimated GFR/1.73 m2 18.83 Glucose 329 H Calcium 8.6 Magnesium 1.8 PFSH All Active Problems (Updated 07/11/21 @ 11:32 by Jessie Ugalde MD) Hypoxemia (Acute) Diabetes (Chronic) Dependent on walker for ambulation (Chronic) Obesity hypoventilation syndrome (Chronic) Obesity + Severe YARELY + Chronic Hypercapnia Chronic respiratory failure with hypercapnia (Chronic) B12 deficiency (Chronic) Start B12 injections; elevated MCV Sedentary lifestyle (Chronic) Sciatica of right side without back pain (Acute) RX Medrol Risk for falls (Chronic) Chronic anticoagulation (Chronic) AF--Apixaban Renal calculi (Chronic) Non obstructive per CT Chronic low back pain (Chronic 07/24/15) CT-lumbar spine 2019-- Severe multilevel degenerative changes in the lumbar spine resulting in neural foraminal and central spinal canal stenosis. Obstructive sleep apnea (Chronic 02/23/14) Sleep Med Referral, 04/17/2019-->Very severe YARELY; CPAP ([facility]) with continuous O2, new Panda C-Pap 01/2021 Anemia (Chronic) Atrial fibrillation (Chronic) Apixaban CHF (congestive heart failure) (Chronic 02/23/14) Preserved EF (10/2020 ECHO) Hypertension (Chronic) Hyperlipidemia (Chronic) Type II diabetes mellitus (Chronic) Full code status (Chronic) Palliative care status (Chronic) Dependence on supplemental oxygen (Chronic) YARELY + Pulm HTN CKD (chronic kidney disease) (Chronic) Pulmonary hypertension (Chronic) Medical History (Updated 07/11/21 @ 11:32 by Jessie Ugalde MD) Adult body mass index 50.0-59.9 Carpal tunnel syndrome, bilateral (12/17/16) Dietary counseling reviewed sodium levels in her food, how to count mg, goal of 1500 mg daily due to CHF 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 Folate deficiency Low 12/2018; resolved 05/2019 labs; discontinued 02/05/2020 h/o elbow fx H/O fracture of nose H/O rotator cuff tear Heme + [place] [facility] [place] Endoscopy Peptic Duodenitis (pathology report); repeat hemoccults NEG 11/2019 HTN (hypertension) Insulin dependent diabetes mellitus Iron deficiency EGD 05/23/19 [place] [facility] [place]; discont supp iron & vit c 02/05/2020; Hgb stable and iron constipating; she will obtain dietarily Lipoma of arm YARELY (obstructive sleep apnea) Peptic ulcer of duodenum [facility] [place] Path reports upper endoscopy; RX Carafate Restrictive lung disease (~03/2014) PFTs validated 04/04/2014-->see scanned docs Spinal stenosis, lumbar Surgical History Biopsy, Temporal Artery (01/18/15) DR.C YOUNG Colonoscopy - MAC (08/14/16) History of carpal tunnel repair Left- 1998 Right- 2017 History of shoulder surgery Right shoulder repair - 2004 History of total abdominal hysterectomy and bilateral salpingo-oophorectomy (~02/1999) History of total bilateral knee replacement Family History Mother Heart disease Father Heart disease Lung cancer Brother Heart disease AAA (abdominal aortic aneurysm, ruptured) Brother Obesity Son No problems noted. Daughter Stillborn, abnormal Daughter No problems noted. 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 Pets and animals: Yes Pets and animals: cat(s) Sexually active: No Do you think of yourself as: straight/heterosexual Current gender identity: female What is your relationship status?: How often do you talk on the phone with friends or family?: once per week How often do you get together with friends or relatives?: once per week Panel score (0-1 are the most socially isolated patients): 0 What type of physical activity do you participate in: none and sedentary lifestyle Special jakob needs: No Agree to transfusion: Yes Seatbelt use: always In current or past relationships, have you been: made to feel afraid Do you feel safe at home: Yes Do you feel safe in your relationship?: Yes Additional Social history: Lives with son Abdias in [facility]. He works. He never left home. She is on home oxygen. Spends most of her day watching TV, sitting on couch. Has a cat. Never smoked. Has been 3 times. 2 husbands have , from one. Daughter lives in [place] with her 8 kids.
[2021-07-11] MEDS: Acetaminophen 500 MG TAB PO (14:36)
--- NOTE | 2021-07-11 15:18 | PT.INTREAT ---
Date of service: 07/11/21 Time of Service: 11:43 PT Notes Visit Reasons: CHF Exacerbation Inpatient Physical Therapy Treatment Note [facility] Date: 07/11/2021 PRECAUTIONS: Fall, Activity as tolerated SUBJECTIVE: Flo is pleasant and agreeable to participating in PT. She reports that she is feeling somewhat better today compared to yesterday. OBJECTIVE: PAIN: No c/o pain BED MOBILITY/TRANSFERS Supine-sit: Sit-supine: Sit-stand: SBA Stand-sit: SBA GAIT Assistive Device: FWW Weight bearing: Full Assist: SBA Distance: 110' + 90' in a.m.; 80' + 120' in p.m. Deviation: Slow pacing, SOB, standing rests t/o, 5L O2 STAIRS: Up/down 3x4 and 2x6 using B rails and a step-to pattern with SBA ASSESSMENT: Patient tolerated session with complaint of increased fatigue and SOB with gait training. She demonstrates global weakness and deconditioning, although improved mobility compared previous session. PLAN: Continue with global strengthening and general conditioning for improved mobility and activity tolerance. TREATMENT CODE/TIME: Session 1: 21 minutes; 19665 (11:43) Session 2: 26 minutes; 57330 x2 (15:18)
--- NOTE | 2021-07-11 16:43 | PDOC.CMPRO ---
- If Service Date Differs Date of service: 07/11/21 Time of Service: 16:43 Care Management Progress Note S/O: Mohan was sitting up in her chair when CM met with her. She stated that she is doing ok today, but her legs are swollen. She stated that she doesn't feel ready to return home today. Per report, she is on 5LO2 today, which is above her baseline. She stated that her son will pick her up when she is ready, but he works nights, so it may be hard for him to pick her up until later in the day. CM will continue to follow. A: Mohan is a 75 year old female admitted to [facility] on 07/09/21 with CHF exacerbation. P: Jane will be discharged home when medically ready per provider. She will continue to be evaluated for discharge needs, follow up with her PCP and plan of care as prescribed. She will transport via private vehicle with her son. CM will continue to follow.
[2021-07-11] MEDS: Atorvastatin 40 MG TAB 80 MG PO (20:49)
[2021-07-11] MEDS: amLODIPine 5 MG TAB 7.5 MG PO (20:49)
[2021-07-12] VITALS (12 sets, daily range): BP systolic 113–136; BP diastolic 53–74; PULSE 50–69; RESP 16–22; TEMP 36.2–36.7; O2SAT 87–98
[2021-07-12] MEDS: Acetaminophen 500 MG TAB PO ×2 (04:07→11:46)
[2021-07-12 05:59] LABS: Anion Gap 3.9 mmol/L (3-11); BUN 70 mg/dL (7-18); CO2 37.1 mmol/L (21.0-32.0); CREATININE 2.4 mg/dL (0.55-1.02); Calcium 8.6 mg/dL (8.5-10.1); Chloride 96 mmol/L (98-107); Estimated GFR 19.73 (mL/min/1.73m2); Glucose 80 mg/dL (74-106); Potassium 4.6 mmol/L (3.5-5.1); Sodium 137 mmol/L (136-145)
[2021-07-12] MEDS: Bumetanide 1 MG/4 ML VIAL IVP (07:39)
[2021-07-12] MEDS: Calcium 600mg/Vit D 200U TAB 1 TAB PO ×2 (07:40→21:13)
[2021-07-12] MEDS: Apixaban 5 MG TAB PO ×2 (07:40→21:13)
[2021-07-12] MEDS: Pantoprazole 40 MG TABCR PO (07:40)
[2021-07-12] MEDS: Normal Saline Flush 10 ML SYR IVP (07:41)
--- NOTE | 2021-07-12 09:57 | RESPIRATORY ---
Pt's own Respironics DreamStation (new - not affected by recall) Auto BiPAP Max IPAP: 14 cmH2O Min EPAP: 10 cmH2O PS: 4 cmH2O O2 bleed in: 3L Mouth mask w/ integrated nasal mask: Medium DME: [facility] Pt uses non-heated circuit.
--- NOTE | 2021-07-12 10:36 | PT.INTREAT ---
PT Notes Visit Reasons: CHF Exacerbation Direct Treatment Time: [30] Total Treatment Time: [30] Treatment Units Time Duration Manual Therapy (12834) [] [] Therapeutic Procedures (43033) [] [] Neurological Re-Education (56620) [] [] Ultrasound (91265) [] [] Gait Training (08062) [2] [30] Therapeutic Activity (49697) [] [] Self Care Training (33060) [] [] Low IE (02459) [] [] Mod IE (60874) [] [] High IE (27482) [] [] SUBJECTIVE: Pt reports headache when approached for therapy tis morning before breakfast, pt reports that nurses were using tight CPAP mask and it made it hard for her to sleep, family brought her personal mask and will use it instead of the new mask to help improve pt quality of sleep while using the CPAP machine. pt re-approached after breakfast with pt reporting improve condition and was ready for gait training. OBJECTIVE: ? BED MOBILITY/TRANSFERS? Supine-sit: ?did not perform? Sit-supine: ?did not perform ? Sit-stand: SBA? Stand-sit: SBA ? GAIT? Assistive Device: FWW? Weight bearing: Full Assist: SBA with WC follow to carry portable 02 tank and standing rest break in between distances.? Distance:? 110' + 90' ? Deviation: Slow pacing, SOB, standing rests t/o, 5L O2 ? STAIRS: Up/down 2x4 and 1x6 using B rails and a step-to pattern with SBA ? ASSESSMENT:? pt sp02 moniotred during session with pt having 90% before activity using room compressor 98% during using portable 02 support and 98% post session, Patient tolerated session with complaint of increased fatigue and SOB with gait training. PLAN: Continue with global strengthening and general conditioning for improved mobility and activity tolerance.
--- NOTE | 2021-07-12 10:43 | W.PM.PROGNOT ---
Date of Service Date of service: 07/12/21 Time of Service: 11:30 Assessment and Plan Assessment and plan (1) CHF (congestive heart failure): Status: Chronic Assessment and plan: Home bipap brought in as asked by Dr. Ugalde re: pt had discomfort on the hospital machine Edema decreased and weight trending down, breathing improved, oxygen improved from 5 L to 4 L. Will titrate Oxygen down to home regimen Will continue daily dose of Bumex and continue to monitor I/O and weight Qualifiers: Heart failure chronicity: chronic Heart failure type: unspecified Qualified Code(s): I50.9 - Heart failure, unspecified (2) Atrial fibrillation: Status: Chronic Assessment and plan: Rate 60-70 on telemetry Will continue apixaban for anticoagulation Qualifiers: Atrial fibrillation type: unspecified Qualified Code(s): I48.91 - Unspecified atrial fibrillation (3) Chronic respiratory failure with hypercapnia: Status: Chronic Assessment and plan: Improving, BIPAP in use Home device brought in (4) Hypoxemia: Status: Resolved Assessment and plan: Titrate Oxygen from 5 l/min to 4 l/min Oxygen at 3l/min at home (5) Chronic anticoagulation: Status: Chronic Assessment and plan: Will continue apixaban (6) Hypertension: Status: Chronic Assessment and plan: Continue amlopdipine Qualifiers: Hypertension type: essential hypertension Qualified Code(s): I10 - Essential (primary) hypertension (7) CKD (chronic kidney disease): Status: Chronic Assessment and plan: BUN ?/ Creat = 70/2.4 Will continue to monitor as patient is on IV Bumex Qualifiers: Chronic kidney disease stage: stage 3 (moderate) Qualified Code(s): N18.3 - Chronic kidney disease, stage 3 (moderate) (8) Pain: Status: Resolved Assessment and plan: Right sided neck pain reported d/t BIPAP mask not well adjusted Will continue Tylenol as needed. (9) Hyperlipidemia: Status: Chronic Assessment and plan: Will continue atorvastatin Qualifiers: Hyperlipidemia type: unspecified Qualified Code(s): E78.5 - Hyperlipidemia, unspecified (10) Pulmonary hypertension: Status: Chronic Assessment and plan: Oxygen in progress; tapering to home dose. (11) Diabetes: Status: Deleted Assessment and plan: Glucs 80 to 255 over the past 24 hours Will continue with FS and SSI, will also continue home dosing of long acting levemir. (12) Discharge planning issues: Status: Acute Assessment and plan: plan to discharge to home with services I have independently examined patient and reviewed documentation assessment and plan discussed with DR Sanchez. Subjective Subjective Patient reports: feels better, still having pain (right neck pain and headache), tolerating a regular diet, flatus, bowel movement and afebrile; denies diarrhea, nausea or vomiting Exam Const General: cooperative and no acute distress Orientation: alert and oriented x3 HENMT Head: normal to inspection, no palpable skull fracture, normocephalic and atraumatic Eyes General: appearance normal, both eyes and all related structures Neck Neck: normal visual inspection, full ROM and no lymphadenopathy Resp Effort & Inspection: able to speak in complete sentences, no cough, not labored and no respiratory distress Auscultation: diminished lung sounds bilaterally Cardio Rhythm: abnormal rhythm (A-Flutter 60- 70 on telemetry) Heart Sounds: S1 normal and S2 normal Pulses: radial pulses present and dorsalis pedis present GI Inspection: large pannus and obesity Palpation: soft and nontender Auscultation: normal bowel sounds General: other (Yellow clear urine in quantity sufficient) Back/Spine/Pelvis Back: no CVA tenderness Skin General skin exam: no rashes or lesions noted Neuro General: patient alert and patient oriented x3 Cognition: normal cognition Speech: speech normal Extrem General: normal to inspection and full ROM Psych Appearance: grossly normal Mental Status: mental status grossly normal Speech and Movement: speech and movement normal Attitude: cooperative Insight: insight good Judgment: judgment good Objective Last Vital Signs Temp 98.1 F 07/12/21 07:28 Pulse 60 07/12/21 07:52 Resp 16 07/12/21 07:28 BP 117/69 07/12/21 07:28 Pulse Ox 94 07/12/21 07:28 Laboratory Results - last 24 hr 07/12/21 05:40 Sodium 137 Potassium 4.6 Chloride 96 L Carbon Dioxide 37.1 H Anion Gap 3.9 BUN 70 H Creatinine 2.4 H Estimated GFR/1.73 m2 19.73 Glucose 80 Calcium 8.6
[2021-07-12] MEDS: Atorvastatin 40 MG TAB 80 MG PO (21:12)
[2021-07-12] MEDS: amLODIPine 5 MG TAB 7.5 MG PO (21:13)
[2021-07-13] VITALS: PULSE 66
[2021-07-13 03:28] VITALS: BP 130/71; PULSE 58; RESP 17; TEMP 36.2; O2SAT 94
[2021-07-13] MEDS: Acetaminophen 500 MG TAB PO (06:15)
[2021-07-13 07:37] VITALS: BP 127/72; PULSE 52; RESP 16; TEMP 36.3; O2SAT 92
[2021-07-13 07:40] VITALS: PULSE 52
[2021-07-13] MEDS: Apixaban 5 MG TAB PO (08:27)
[2021-07-13] MEDS: Bumetanide 1 MG/4 ML VIAL IVP (08:27)
[2021-07-13] MEDS: Pantoprazole 40 MG TABCR PO (08:27)
[2021-07-13] MEDS: Normal Saline Flush 10 ML SYR IVP (08:28)
[2021-07-13] MEDS: Calcium 600mg/Vit D 200U TAB 1 TAB PO (08:28)
--- NOTE | 2021-07-13 11:15 | W.PM.PROGNOT ---
Date of Service Date of service: 07/13/21 Time of Service: 11:15 Assessment and Plan Assessment and plan (1) CHF (congestive heart failure): Status: Chronic Assessment and plan: Home bipap brought in as asked by Dr. Ugalde re: pt had discomfort on the hospital machine Edema decreased and weight trending down, breathing improved, oxygen improved from 5 L to 4 L. Will titrate Oxygen down to home regimen Will continue daily dose of Bumex and continue to monitor I/O and weight Qualifiers: Heart failure type: unspecified Heart failure chronicity: chronic Qualified Code(s): I50.9 - Heart failure, unspecified (2) Atrial fibrillation: Status: Chronic Assessment and plan: Rate 60-70 on telemetry Will continue apixaban for anticoagulation Qualifiers: Atrial fibrillation type: unspecified Qualified Code(s): I48.91 - Unspecified atrial fibrillation (3) Chronic respiratory failure with hypercapnia: Status: Chronic Assessment and plan: Improving, BIPAP in use Home device brought in (4) Hypoxemia: Status: Acute Assessment and plan: Titrate Oxygen from 5 l/min to 4 l/min Oxygen at 3l/min at home (5) Diabetes: Status: Chronic Assessment and plan: Glucs 80 to 255 over the past 24 hours Will continue with FS and SSI, will also continue home dosing of long acting levemir. (6) Chronic anticoagulation: Status: Chronic Assessment and plan: Will continue apixaban (7) Hypertension: Status: Chronic Assessment and plan: Continue amlopdipine Qualifiers: Hypertension type: essential hypertension Qualified Code(s): I10 - Essential (primary) hypertension (8) CKD (chronic kidney disease): Status: Chronic Assessment and plan: BUN ?/ Creat = 70/2.4 Will continue to monitor as patient is on IV Bumex discussed with Dr. Sanchez Qualifiers: Chronic kidney disease stage: stage 3 (moderate) Qualified Code(s): N18.3 - Chronic kidney disease, stage 3 (moderate) (9) Pain: Status: Acute Assessment and plan: Right sided neck pain reported d/t BIPAP mask not well adjusted Will continue Tylenol as needed. (10) Hyperlipidemia: Status: Chronic Assessment and plan: Will continue atorvastatin Qualifiers: Hyperlipidemia type: unspecified Qualified Code(s): E78.5 - Hyperlipidemia, unspecified (11) Pulmonary hypertension: Status: Chronic Assessment and plan: Oxygen in progress; tapering to home dose. Exam Const General: cooperative and no acute distress Orientation: alert and oriented x3 HENMT Head: normal to inspection, no palpable skull fracture, normocephalic and atraumatic Eyes General: appearance normal, both eyes and all related structures Neck Neck: normal visual inspection, full ROM and no lymphadenopathy Resp Effort & Inspection: able to speak in complete sentences, no cough, not labored and no respiratory distress Auscultation: diminished lung sounds bilaterally Cardio Rhythm: abnormal rhythm (A-Flutter 60- 70 on telemetry) irregularly irregular Heart Sounds: S1 normal and S2 normal Pulses: radial pulses present and dorsalis pedis present GI Inspection: large pannus and obesity Palpation: soft and nontender Auscultation: normal bowel sounds General: other (Yellow clear urine in quantity sufficient) Back/Spine/Pelvis Back: no CVA tenderness Skin General skin exam: no rashes or lesions noted Neuro General: patient alert and patient oriented x3 Cognition: normal cognition Speech: speech normal Extrem General: normal to inspection and full ROM Psych Appearance: grossly normal Mental Status: mental status grossly normal Speech and Movement: speech and movement normal Attitude: cooperative Insight: insight good Judgment: judgment good Objective Last Vital Signs Temp 36.3 C L 07/13/21 07:37 Pulse 52 L 07/13/21 07:40 Resp 16 07/13/21 07:37 BP 127/72 07/13/21 07:37 Pulse Ox 92 07/13/21 07:37
[2021-07-13] MEDS: Nystatin POWDER 15 GM JAR TP (11:26)
--- NOTE | 2021-07-13 12:06 | PT.INTREAT ---
PT Notes Visit Reasons: CHF Exacerbation Direct Treatment Time: [30] Total Treatment Time: [30] Treatment Units Time Duration Manual Therapy (95874) [] [] Therapeutic Procedures (36549) [] [] Neurological Re-Education (87415) [] [] Ultrasound (55216) [] [] Gait Training (55733) [2] [30] Therapeutic Activity (00842) [] [] Self Care Training (95153) [] [] Low IE (02225) [] [] Mod IE (86146) [] [] High IE (16626) [] [] SUBJECTIVE: Pt reports feeling better today, pt reports sleeping with NC instead of home CPAP since the mask that came from home also feels weird. pt reports not sleeping well but was emuch more energetic and was gait training with increased pacing compared to prevoius session. OBJECTIVE: ? GAIT? Training: ? Assistive Device: FWW? Weight bearing: Full Assist: SBA with WC follow to carry portable 02 tank and standing rest break in between distances.? Distance:? 110' + 90'? Deviation: Slow pacing, SOB, standing rests t/o, 5L O2 ? STAIRS: Up/down [id number] using B rails and a step-to pattern with SBA ? ASSESSMENT:? pt sp02 moniotred during session with pt having 95% before activity using room compressor 96% during using portable 02 support and 98% post session, Patient tolerated session with complaint of increased fatigue and SOB with gait training. PLAN: Continue with global strengthening and general conditioning for improved mobility and activity tolerance.
[2021-07-13 15:51] VITALS: BP 163/79; PULSE 52; RESP 22; TEMP 36.3; O2SAT 96
--- NOTE | 2021-07-13 16:02 | W.PM.DS.N ---
Date of service: 07/13/21 Time of Service: 16:02 DS: Diagnosis Discharge Diagnosis (1) CHF (congestive heart failure): Status: Chronic (2) Atrial fibrillation: Status: Chronic (3) Chronic respiratory failure with hypercapnia: Status: Chronic (4) Hypoxemia: Status: Acute (5) Diabetes: Status: Chronic (6) Chronic anticoagulation: Status: Chronic (7) Hypertension: Status: Chronic (8) CKD (chronic kidney disease): Status: Chronic (9) Pain: Status: Acute (10) Hyperlipidemia: Status: Chronic (11) Pulmonary hypertension: Status: Chronic Discharge Plan Disposition Patient Disposition: HOME W/HOME HEALTH SERVICE Condition: Improving Discharge Details Reason For Visit: CHF Exacerbation Admit Date/Time: 07/09/21 10:44 Admit Provider: Jose Sanchez Attending Provider: Jose Sanchez Primary Care Provider: Laverne Sung Hospital Course Hospital Course: This is a 75 year old female with history of diabetes type 2, YARELY with both CPAP and bipap at home that she states she does not use due to the mask, oxygen dependent on 3 L, HTN, HLD, PHTN, Right sided HF, Afib anticogaulated on apixaban presented to the emergency department at [facility] for shortness of breath worsening for about one week Work up most consistent with heart failure. In the ED she received an IV dose of Bumex. She had a VBG pCO2 91, pCO2 70, carbon dioxide 37.7, anion gap 0.3, BUN 39, Creatinine 2.0 both are baseline Renal function. BNP was 6382. Covid negative. She was asked to be admitted to med/surg on telemetry for further management. She is unable to speak complete sentences without being dyspneic. She would benefit from triology,for now will place on bipap.? ABG done pH 7.3, pCO 2 69.9, pO2 48.1 sO2 81.2, she was on 6 L sating 88%, Bumex drip ordered, with marino, d/t severity of volume overload. Daily wts, strict I/O. Monitor daily labs. She has a continuous glucose monitor (CGM). she responded well to the bumex drip and was transitioned to bolus dosing. We were unable to obtain an updated echo during the hospitalization and she should follow up with her pcp accordingly to schedule. She is stable on her home oxygen prescription and is stable for discharge to home. she is discharge with home health services. discussed with DR Sanchez Home Meds and New Rx's Prescriptions: Continued fluticasone propionate 50 mcg/actuation spray,suspension 1 spray NS DAILY PRN (Reason: allergy symptoms) Qty: 15.8 0RF (DME) pen needle, diabetic [BD Ultra-Fine Mini Pen Needle] 31 gauge x 3/16 needle See Rx Instructions .ROUTE .MEDSUPPLY Qty: 100 6RF Rx Instructions: for insulin administration qid dx E11.22 #360 Refill 3 insulin aspart U-100 [Novolog Flexpen U-100 Insulin] 100 unit/mL (3 mL) insulin pen See Rx Instructions subcut AC MDD 30 units Qty: 90 3RF Rx Instructions: 2-10 units subcut before meals; For diabetes as directed with meals sliding scale: 100:0units 101-150: 2 units 151-200: 4 units 201-250: 6 units 251-300: 8 units over 300: 10 units (DME) FreeStyle Bradley 2 Sensor Kit See Rx Instructions .ROUTE .MEDSUPPLY Qty: 2 11RF Rx Instructions: As directed; on insulin AC & HS for goal A1C 8% acetaminophen [Tylenol Extra Strength] 500 mg tablet 500 mg PO Q6H PRN0RF (DME) Oxygen Tank See Rx Instructions .ROUTE .MEDSUPPLY Qty: 1 0RF Rx Instructions: 2-3L via NC continuous cyanocobalamin (vitamin B-12) 1,000 mcg/mL kit 1,000 mcg subcut QMONTH Qty: 1 11RF Rx Instructions: May self-administer at home for low B12 pantoprazole [Protonix] 40 mg tablet,delayed release (DR/EC) 40 mg PO DAILY Qty: 90 3RF Rx Instructions: h/o GI bleed, stomach protection Eliquis 5 mg tablet 5 mg PO BID Qty: 180 3RF (DME) BD Eclipse Luer-Timi 3 mL 23 x 1 syringe See Rx Instructions .ROUTE .MEDSUPPLY Qty: 15 0RF Rx Instructions: for use with monthly self administered B12 injections bumetanide 1 mg tablet 1 mg PO BID Qty: 180 3RF Rx Instructions: Diuretic for heart and swelling or as directed atorvastatin 80 mg tablet 80 mg PO QHS Qty: 90 3RF Rx Instructions: Cholesterol Levemir FlexTouch U-100 Insuln 100 unit/mL (3 mL) insulin pen 30 unit subcut QHS 0RF Rx Instructions: decreased 07/04/21 by JOSE amlodipine 5 mg tablet 7.5 mg PO HS 0RF Label Comments: TAKE ONE TABLET BY MOUTH AT BEDTIME FOR BLOOD PRESSURE(TAKE WITH AMLODIPINE 2,5 MG FOR TOTA DAILY DOSE 7.5 MG docusate sodium [Colace] 100 mg Capsule 100 mg PO TID PRN PRNQty: 0 0RF Calcium 600 with Vitamin D3 600 mg(1,500mg) -400 unit Tablet,Chewable 1 tab PO BID 0RF Discharge Instructions Instructions: Heart Failure ([place]) Stand Alone Forms: Nursing Discharge Form Referrals: Jessie Ugalde MD [ [facility] STAFF PHYSICIAN] - (Please call Wednesday to make a follow up appointment. ) Laverne Sung NP [Primary Care Provider] - (Please call Wednesday to make a follow up appointment) Activity:: Activity as Tolerated Equipment/Supplies:: No Equipment Needed Diet:: Carb Counting Discharge Orders Discharge Orders: Discharge Order (Routine); Ordered 07/13/21 Ordered By: Myah Victor Discharge Data Discharge Date/Time-TO BE ENTERED AT DEPARTURE: 07/13/21 16:44 DS: Summary Time Spent with Patient providing and/or coordinating discharge services: Greater than 30 minutes Status at Discharge Functional status at discharge: uses cane/walker Overall status at discharge: patient is progressing back to baseline Mental Status: mental status grossly normal Speech and Movement: speech and movement normal Mood: congruent mood Affect: normal affect Exam Const General: cooperative, comfortable and no acute distress Nutritional Appearance: overweight Orientation: alert, awake and oriented x3 HENMT Head: normal to inspection, normocephalic and atraumatic Mouth: oral mucosae normal Chest Chest: normal inspection of the chest Resp Effort & Inspection: normal respiratory effort Auscultation: diminished lung sounds (bases bilaterally) Cardio Rate: regular rate GI Inspection: normal to inspection Palpation: soft Auscultation: normal bowel sounds Skin Rashes: rashes noted (fungal under bilateral breasts) Neuro General: patient alert, patient awake and patient oriented x3 Extrem General: normal to inspection and edema Psych Mental Status: mental status grossly normal Speech and Movement: speech and movement normal Mood: congruent mood Affect: normal affect DS: Data Vitals/I&O Vitals and I&O: Vital Signs Temperature 36.3 C L 07/13/21 15:51 Temperature Source Tympanic 07/13/21 15:51 Pulse 52 L 07/13/21 15:51 Pulse Rhythm Irregular 07/13/21 15:46 Pulse 65 07/10/21 00:28 Respiratory Rate 22 07/13/21 15:51 Respiratory Effort Non-Labored 07/13/21 15:46 Respiratory Depth Normal 07/13/21 15:46 Respiratory Pattern Normal 07/13/21 15:46 Blood Pressure 163/79 H 07/13/21 15:51 Blood Pressure Mean 69 07/10/21 00:28 Blood Pressure Position Supine 07/09/21 12:44 Pulse Oximetry 96 07/13/21 15:51 Oxygen Delivery Method Nasal Cannula 07/13/21 15:51 Oxygen Flow Rate 3 07/13/21 15:51 Fraction of Inspired Oxygen (FIO2) 40 07/11/21 03:24 Pain Level 0 07/13/21 15:51 Comment 07/12/21 03:49 Intake & Output 07/12/21 07/13/21 07/13/21 23:59 11:59 23:59 Intake Total 240 / 600 Output Total 1100 / 2275 850 / 1350 500 / 1350 Balance -860 / -1675 -850 / -1350 -500 / -1350 Weight 113.3 kg Intake: Oral 240 / 600 Output: Urine 1100 / 2275 850 / 1350 500 / 1350 Other: Urine Color Light Carlee Yellow Straw Urine Appearance Sediment Clear Clear Urine Odor Normal Normal Normal Stool Size Large Stool Characteristics Soft Formed Brown Voiding Methods Bedside Commode Bedside Commode Toilet [facility] All Active Problems (Updated 07/12/21 @ 16:11 by Tereza Mena) Pain (Acute) Hypoxemia (Acute) Diabetes (Chronic) Dependent on walker for ambulation (Chronic) Obesity hypoventilation syndrome (Chronic) Obesity + Severe YARELY + Chronic Hypercapnia Chronic respiratory failure with hypercapnia (Chronic) B12 deficiency (Chronic) Start B12 injections; elevated MCV Sedentary lifestyle (Chronic) Sciatica of right side without back pain (Acute) RX Medrol Risk for falls (Chronic) Chronic anticoagulation (Chronic) AF--Apixaban Renal calculi (Chronic) Non obstructive per CT Chronic low back pain (Chronic 07/24/15) CT-lumbar spine 2019-- Severe multilevel degenerative changes in the lumbar spine resulting in neural foraminal and central spinal canal stenosis. Obstructive sleep apnea (Chronic 02/23/14) Sleep Med Referral, 04/17/2019-->Very severe YARELY; CPAP ([facility]) with continuous O2, new Panda C-Pap 01/2021 Anemia (Chronic) Atrial fibrillation (Chronic) Apixaban CHF (congestive heart failure) (Chronic 02/23/14) Preserved EF (10/2020 ECHO) Hypertension (Chronic) Hyperlipidemia (Chronic) Type II diabetes mellitus (Chronic) Full code status (Chronic) Palliative care status (Chronic) Dependence on supplemental oxygen (Chronic) YARELY + Pulm HTN CKD (chronic kidney disease) (Chronic) Pulmonary hypertension (Chronic) Medical History (Updated 07/12/21 @ 16:11 by Tereza Mena) Adult body mass index 50.0-59.9 Carpal tunnel syndrome, bilateral (12/17/16) Dietary counseling reviewed sodium levels in her food, how to count mg, goal of 1500 mg daily due to CHF 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 Folate deficiency Low 12/2018; resolved 05/2019 labs; discontinued 02/05/2020 h/o elbow fx H/O fracture of nose H/O rotator cuff tear Heme + stool [facility] Upper GI Endoscopy Peptic Duodenitis (pathology report); repeat hemoccults NEG 11/2019 HTN (hypertension) Insulin dependent diabetes mellitus Iron deficiency EGD 05/23/19 at [facility]; discont supp iron & vit c 02/05/2020; Hgb stable and iron constipating; she will obtain dietarily Lipoma of arm YARELY (obstructive sleep apnea) Peptic ulcer of duodenum [facility] Path reports upper endoscopy; RX Carafate Restrictive lung disease (~03/2014) PFTs validated 04/04/2014-->see scanned docs Spinal stenosis, lumbar Surgical History Biopsy, Temporal Artery (01/18/15) DR.C YOUNG Colonoscopy - [facility] (08/14/16) History of carpal tunnel repair Left- 1998 Right- 2017 History of shoulder surgery Right shoulder repair - 2004 History of total abdominal hysterectomy and bilateral salpingo-oophorectomy (~02/1999) History of total bilateral knee replacement Family History Mother Heart disease Father Heart disease Lung cancer Brother Heart disease AAA (abdominal aortic aneurysm, ruptured) Brother Obesity Son No problems noted. Daughter Stillborn, abnormal Daughter No problems noted. 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 [employer] Pets and animals: Yes Pets and animals: cat(s) Sexually active: No Do you think of yourself as: straight/heterosexual Current gender identity: female What is your relationship status?: How often do you talk on the phone with friends or family?: once per week How often do you get together with friends or relatives?: once per week Panel score (0-1 are the most socially isolated patients): 0 What type of physical activity do you participate in: none and sedentary lifestyle Special jakob needs: No Agree to transfusion: Yes Seatbelt use: always In current or past relationships, have you been: made to feel afraid Do you feel safe at home: Yes Do you feel safe in your relationship?: Yes Additional Social history: Lives with son Abdias in house trailer. He works. He never left home. She is on home oxygen. Spends most of her day watching TV, sitting on couch. Has a cat. Never smoked. Has been 3 times. 2 husbands have , from one. Daughter lives in [place] with her 8 kids.
--- NOTE | 2021-07-13 16:44 | PDOC.HHF2F ---
Home Health Certification Home Health Certification: 1. Encounter Date and Reason I certify that Jane Walker was seen by Myah Victor on 07/13/21 and that I had a [id number] encounter with this patient that meets the physician face to face encounter requirements. 2. Clinical Findings Supporting Skilled Need and Homebound Status I certify that home health services are medically necessary, include either intermittent long-term and/or physical/speech therapy, and that this patient is homebound in that absences from the home require considerable and taxing effort and are infrequent or of short duration, or are attributable to the need to receive medical care. [X] (a) Attached documentation from encounter provides clinical findings supporting skilled need and homebound status (including what assistance patient requires to leave the home). The encounter with the patient was in whole, or in part, for the following medical condition, which is the primary reason for home health care: CHF Exacerbation Penitentiary: routine nursing for evaluation, medication oversight, weight review Physical and occupational Therapy: routine evaluation and treatment Homebound: patient is unable to safely leave the house unassisted due to decreased strength and endurance and shortness of breath 3. Certification and Authentication I certify that I composed the above information based on my clinical judgement relating to this patient's medical condition and, if applicable, clinical findings communicated to me by the NPP or inpatient physician who performed the Home Health Referral. All further orders will be obtained through AMY GRAFF NP__(Community Based Physician - PCP)
--- NOTE | 2021-07-13 16:58 | PDOC.CMDIS ---
- If Service Date Differs Date of service: 07/13/21 Time of Service: 16:58 LACE Index Scoring Tool - Questions: Length of Stay (in days): 4 - 6 Acuity (Admit via E.D.?): Yes Comorbidities: Diabetes w/o Complication E.D. Visits: 1 - Answers: Total Score: 9 Risk of Readmission: Low Risk Care Management Discharge Reason for Hospitalization: CHF exacerbation Discharge Plan: Mohan is discharged home with new RN, PT, OT, and DYE REEL OPERATOR services. She will follow up with her PCP, decorating kiln operator and discharge plan of care as directed. She is transported home by her son via private vehicle. Patient/Family Education Needs: Review discharge instructions; discuss Ask Me Three. Services Needed at Discharge: Home Health Care Services (RN, PT, OT, DYE REEL OPERATOR)
--- NOTE | 2021-07-14 19:30 | PT.INDS ---
Date of service: 07/14/21 PT Notes Visit Reasons: CHF Exacerbation Physical Therapy Inpatient Discharge Summary Date:?07/14/2021 Dates of Service: 07/10/2021 through 07/13/2021 This is a clinical summary of care provided for the duration of dates listed above. No charge was made in the completion of this documentation. Referring Doctor:? Laverne Cai NP PT Orders: PT CONSULT: Evaluate and Treat Precautions: Activity as tolerated. Patient Profile/Admitting Diagnosis: Flo catalan is a 75-year-old female with admitting diagnosis of congestive heart failure exacerbation, atrial fibrillation, chronic respiratory failure with hypercapnia, hypoxemia, pulmonary hypertension, and chronic kidney disease referred for physical therapy for functional mobility assessment and progression. PMHx: All Active Problems? Hypoxemia (Acute) Diabetes (Chronic) Dependent on walker for ambulation (Chronic) Obesity hypoventilation syndrome (Chronic) Obesity + Severe YARELY + Chronic Hypercapnia Chronic respiratory failure with hypercapnia (Chronic) Restrictive lung disease (Chronic ~03/2014) PFTs validated 04/04/2014-->see scanned docsB12 deficiency (Chronic) Start B12 injections; elevated MCVSedentary lifestyle (Chronic) Sciatica of right side without back pain (Acute) RX Medrol Risk for falls (Chronic) Chronic anticoagulation (Chronic) AF--Apixaban Renal calculi (Chronic) Non obstructive per CT Chronic low back pain (Chronic 07/24/15) CT-lumbar spine 2019-- Severe multilevel degenerative changes in the lumbar spine resulting in neural foraminal and central spinal canal stenosis. Obstructive sleep apnea? (Chronic 02/23/14) Sleep Med Referral, 04/17/2019-->Very severe YARELY; CPAP ([facility]) with continuous O2, new Panda C-Pap 01/2021 Anemia (Chronic) Atrial fibrillation (Chronic) Apixaban CHF (congestive heart failure) (Chronic 02/23/14) Preserved EF (10/2020 ECHO)Hypertension (Chronic) Hyperlipidemia (Chronic) Type II diabetes mellitus (Chronic) Full code status (Chronic) Palliative care status (Chronic) Dependence on supplemental oxygen (Chronic) YARELY + Pulm HTNCKD (chronic kidney disease) (Chronic) Pulmonary hypertension (Chronic) Medical History? Adult body mass index 50.0-59.9 Carpal tunnel syndrome, bilateral (12/17/16) Dietary counseling reviewed sodium levels in her food, how to count mg, goal of 1500 mg daily due to CHF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 Folate deficiency Low 12/2018; resolved 05/2019 labs; discontinued 02/05/2020h/o elbow fx H/O fracture of nose H/O rotator cuff tear Heme + stool [facility] Upper GI Endoscopy Peptic Duodenitis (pathology report); repeat hemoccults NEG 11/2019HTN (hypertension) Insulin dependent diabetes mellitus Iron deficiency EGD 05/23/19 at [facility]; discont supp iron & vit c 02/05/2020; Hgb stable and iron constipating; she will obtain dietarilyLipoma of arm YARELY (obstructive sleep apnea) Peptic ulcer of duodenum [facility] Path reports upper endoscopy; RX CarafateSpinal stenosis, lumbar Surgical History? Biopsy, Temporal Artery (01/18/15) DR.C YOUNGColonoscopy - [facility] (08/14/16) History of carpal tunnel repair Left- 1998 Right- 2017 History of shoulder surgery RightWill shoulder repair - 2004History of total abdominal hysterectomy and bilateral salpingo-oophorectomy (~02/1999) History of total bilateral knee replacement. Social History/Home Situation: Lives in a private home trailer with her son Equipment Owned/DME: [facility]WW, CPAP Subjective: NT. See most recent COMPOUNDING ASSISTANT notes. Objective: NT. See most recent COMPOUNDING ASSISTANT notes. Mental Status: NT. See most recent COMPOUNDING ASSISTANT notes. Pain: NT. See most recent COMPOUNDING ASSISTANT notes. ROM: Right Upper Extremity: ? Shoulder Flexion WFL. Shoulder abduction WFL. Elbow flexion WFL. Wrist flexion WFL. Functional opening and closing of hand WFL. Left Upper Extremity:? Shoulder Flexion WFL. Shoulder abduction WFL. Elbow flexion WFL. Wrist flexion WFL. Functional opening and closing of hand WFL. Right Lower Extremity: Hip flexion WFL. Hip abduction WFL. Knee flexion WFL. Ankle dorsiflexion WFL. Ankle plantarflexion WFL. Left Lower Extremity: Hip flexion WFL. Hip abduction WFL. Knee flexion WFL. Ankle dorsiflexion WFL. Ankle plantarflexion WFL. Strength: Right Upper Extremity: Shoulder flexors 4-/5. Shoulder abductors 4-/5. Elbow flexors 4/5. Elbow extensors 4/5. Process Tank Tender strong. Left Upper Extremity:? Shoulder flexors 4-/5. Shoulder abductors 4-/5. Elbow flexors 4/5. Elbow extensors 4/5. Process Tank Tender strong. Right Lower Extremity: Hip flexors 4-/5. Hip abductors 4-/5. Knee flexors 4-/5. Knee extensors 4-/5. Ankle dorsiflexors 4-/5. Ankle plantarflexors 4-/5. Left Lower Extremity: Hip flexors 4-/5. Hip abductors 4-/5. Knee flexors 4-/5. Knee extensors 4-/5. Ankle dorsiflexors 4-/5. Ankle plantarflexors 4-/5. Bed Mobility/Transfers: Sit to stand contact-guard assist Stand to sit standby assist Bedside commode to bedside chair transfer contact-guard assist? Gait: Tolerates up to 110' + 90'? using front wheel walker with full weight bearing using front wheeled walker with step through gait pattern slow pacing, SOB, standing rests t/o, 5L O2. STAIRS: Up/down [id number] and [id number] using B rails and a step-to pattern with SBA ? Balance: Static Sitting:? Good Dynamic Sitting:? Good Static Standing: Fair Dynamic Standing:? Fair ASSESSMENT: Patient presents with clinical signs and symptoms consistent with current/admitting diagnoses that have resulted to mobility limitations, gait instability, generalized weakness, and overall ADL decline as demonstrated by the following impairment level findings: 1.? Decreased strength to BUE/LE major muscle groups 2.? Impaired sitting/standing balance 3.? Impaired activity tolerance 4.? Shortness of breath 5.? Swelling in B legs Impairments are contributing to the following functional limitations: 1.? Decline in bed mobility skills 2.? Decline in transfer skills 3.? Difficulty with ambulation without assistive device and physical assistance 4.? Increased completion time for mobility ADL performance 5.? Increased risk for falls 6.? Difficulty with managing steps alone safely Goals X1 week 1. Supine-Sit independent NOT MET 2. Sit-Supine independent NOT MET 3. Sit-Stand independent NOT MET 4. Stand-Sit independent NOT MET 5. Bed-Chair independent NOT MET 6. Chair-Bed independent NOT MET 7. Independent gait on level surface with use of least restrictive device for at least 300 feet without report of pain nor dyspnea NOT MET 8. Independent stair negotiation while holding onto bilateral rails for at least 5 steps without report of pain nor dyspnea NOT MET 9. Good static and dynamic standing balance/tolerance NOT MET DISCHARGE RECOMMENDATIONS: Patient will benefit from home health PT services in order to progress mobility level using least restrictive assistive ambulatory device, assess home safety, identify additional equipment needs, and establish a functional maintenance program that will increase ability of patient to remain at home.? No equipment needs at this time. TREATMENT CODE/TIME: [place] Thank you for the opportunity to participate in the care of this patient. Ernestine Nieto PT, DPT, CLT [facility] [place], [place]
== END 2021-07-13 16:44 | disposition home health service (06) | DRG 291 ==
LOC: ER 11:25 → ICU 12:00 → MS 07-10 00:34
PROVIDERS: Nurse Practitioner Family; Admitting Provider Family Medicine; Emergency Provider Student in an Organized Health Care Education/Training Program; PCP Nurse Practitioner Adult Health; Visit Provider Family Medicine
DX: I13.0 Hypertensive heart and chronic kidney disease with heart failure and stage 1 through stage 4 chronic kidney disease, or unspecified chronic kidney disease (principal); I50.33 Acute on chronic diastolic (congestive) heart failure; J96.12 Chronic respiratory failure with hypercapnia; Z68.41 Body mass index [BMI] 40.0-44.9, adult; J44.1 Chronic obstructive pulmonary disease with (acute) exacerbation; R09.02 Hypoxemia; I48.91 Unspecified atrial fibrillation; Z79.01 Long term (current) use of anticoagulants; I27.20 Pulmonary hypertension, unspecified; N18.30 Chronic kidney disease, stage 3 unspecified; E11.22 Type 2 diabetes mellitus with diabetic chronic kidney disease; G47.33 Obstructive sleep apnea (adult) (pediatric); Z99.81 Dependence on supplemental oxygen; E78.5 Hyperlipidemia, unspecified; J98.4 Other disorders of lung; E53.8 Deficiency of other specified B group vitamins; M54.31 Sciatica, right side; Z91.81 History of falling; N20.0 Calculus of kidney; D64.9 Anemia, unspecified; M48.061 Spinal stenosis, lumbar region without neurogenic claudication; Z79.4 Long term (current) use of insulin
CPT/HCPCS: 36415; 80048; 80053; 82306; 82805; 87637; 93005; 97116; 97162; 97530; 99285; 71045; 83036; 83735; 83880; 84484; 85025; 85610; 85730; 93010; 94660; 99223; 99232; 99239; J2930; J3490; J7620

== ENCOUNTER 2021-08-18 03:38 | Outpatient (CLI) | payer MEDICARE, SELFPAY ==
[2021-08-18 09:25] LABS: Calculated LDL 66 mg/dL (<100); Cholesterol 137 mg/dL (<200); HDL Cholesterol 53 mg/dL (40-60); Magnesium 1.6 mg/dL (1.8-2.4); Triglyceride 90 mg/dL (<150); Vitamin B12 907 pg/mL (193-986)
[2021-08-18 09:43] LABS: Uric Acid 8.8 mg/dL (2.6-6.0)
== END 2021-08-18 03:39 | disposition home or self-care (01) ==
PROVIDERS: PCP Nurse Practitioner Adult Health; Visit Provider Nurse Practitioner Adult Health
DX: E11.22 Type 2 diabetes mellitus with diabetic chronic kidney disease (principal); E53.8 Deficiency of other specified B group vitamins; E78.5 Hyperlipidemia, unspecified; I10 Essential (primary) hypertension; I48.91 Unspecified atrial fibrillation; I50.9 Heart failure, unspecified; M10.9 Gout, unspecified; N18.31 Chronic kidney disease, stage 3a; Z79.01 Long term (current) use of anticoagulants; Z79.4 Long term (current) use of insulin; E83.42 Hypomagnesemia
CPT/HCPCS: 36415; 80061; 82043; 82570; 82607; 83735; 84550

== ENCOUNTER 2021-08-29 00:30 | Outpatient (CLI) | payer MEDICARE, SELFPAY ==
--- OUTSIDE RECORDS SUMMARY | 2021-08-29 00:31 | XMS_ITS | Encounter Summary ---
:1945 Author Care Team Providers Name Role Phone Laverne Sung Primary Care Provider [phone] [facility] OTHER [phone] [facility] Medical Records OTHER [phone] Reason for Visit None recorded. Assessment and Plan 1. Obstructive sleep apnea syndrome Very severe YARELY with an AHI of 136.8/hr and sp02 karlene 75%. She did not have REM sleep during the study which may have led to an underestimation of the severity of her YARELY. She had poor tolerance to CP AP. She is using BiPAP Imax 14 cm, Mike 10 cm, PS max 4 cm with 02 at 4 lpm. Her compliance for the past week since her hospitalization is significantly better than it ever has been before. Her AHI is a lso the best it has been at 32/jr which is still much higher than I would like. I set her Imax to 16 cm today and I will see her back in three months. She is encouraged to continue to use every night fo r her total sleep time. She is encourage d to keep up with the routine maintenance of the machine and to clean and replace parts as indicated. She does not drive. I provided greater than 30 minutes in e care of this patient, more than half the time was spent in [id number] counseling. Discussion Note: None recorded.Patient educational handouts: No information available. Plan of Care Reminders Provider Appointments Office 10/28/2021 12:30PM Shayla Luevano eer, AGRONOMY TEACHER Lab None recorded. ? ? Referral None recorded. ? ? Procedures None recorded. ? ? Surgeries None recorded. ? ? Imaging None recorded. ? ? Medications Name Start Date ? ? Allergy Relief (fluticasone) 50 mcg/actuation nasal sp ray,suspension ? [place] 1 spray every day by intranasal route. [...] 1 packet every day by oral route. Medications Administered None recorded. Vitals Height Weight BMI Blood Pressure 5 ft 2.5 in 243 lbs 43.7 kg/m2 138/72 mm[Hg] Results Lab Results None recorded. Allergies Code Code System Name Reaction Severity Onset 161 RxNorm Acetaminophen ? ? ? Adhesive Tape ? ? ? 4146768 RxNorm Apricot ? ? ? 2670 RxNorm Codeine ? ? ? 6243 RxNorm Furosemide ? ? ? 7047 RxNorm Morphine ? ? ? 7804 RxNorm Oxycodone ? ? ? 651042 RxNorm Peanut ? ? ? Tree Nut ? ? ? Problems Name Status Onset Date Source ? Type 2 Diabetes Mellitus Active 08/08/2019 ? Folic Acid Deficiency Active 08/08/2019 ? Hyperlipidemia Active 08/08/2019 ? Anemia Active 08/08/2019 ? Hypertensive Disorder Active 08/08/2019 ? Atrial Fibrillation Active 08/08/2019 ? Chronic Kidney Disease Active 08/08/2019 ? Severe Obesity Active ? History Extreme Obesity with Alveolar Hypoventilation Active ? History Obstructive Sleep Apnea Syndrome Active ? History Heart Failure Active ? History Sleep Apnea Active ? History Hypoxemia Active ? History Procedures Date Name Performed by ? 03/15/1964 Tonsillectomy Information not avai lable Vaccine List None recorded. Social History Tobacco Smoking Status Never Smoker Animal exposure? Y Notes: cat What is your level of alcohol consumption? None Live alone or with others? with others Are you currently employed? N Are you blind or do you have difficulty N seeing? What is your code status? 0 Hard of hearing or deaf in one or both ears? N What is your level of caffeine consumption? Occasional Notes: 2 cups tea in am Functional Status No Impairment. Past Encounters 07/23/2021 Obstructive Sleep Apnea Syndrome Shayla Wray, AGRONOMY TEACHER: [address] [place] [phone], Ph. History of Present Illness Note: <p>Jane Walker has a visit for YARELY follow-up.</p><div>
</div>&l t;p>Jane last had a visit with me on 04/15/21. She has a medical history to include heart failure, a-fib, DM, anemia, CKD, HLD, HTN, obesity and YARELY. </p><p>PSG 07/23/14 (BMI 45.17), WFZ698.8/hr, no REM, sp02 karlene 75%, PLMi 2.2/hr. She went untreated for several years. I ordered a CPAP 12-18 cm for her in July 2019 and she was not able to tolerate it reporting it takes my breath away and she felt the pressure was too strong.</p><p>Titration 02/20/20 (BMI 47.92), sleep efficiency 61%, BiPAP titrated from 12/8 to 19/15 cm, back up rate 10/minutes was added for emergence of severe central apneas, ASV was also tried, 234 minutes spent <88%, 02 was added and titrated to 3 lpm, arousal index 81/hr, PLMi 57.2, PLMai 25.6/hr. None of the tested pressures were effective as there were continued events on all pressures tried. The central apneas noted were both DEPLOYMENT MANAGER and at times appeared to be sleep wake centrals or related to mask leak. She had poor tolerance to tightening of mask, she was refit with an Airtouch F20 small. Recommend work on mask fit, consider chin strap, start BiPAP 18/14 cm (avoid auto given centrals) with 4 lpm and consider increasing pressure as tolerated.</p><p>Last visit she was supposed to be using BiPAP 14/10 cm with 02 at 4 lpm but she was set up with a new BiPAP from [facility] and it was incorrectly set at 25/6/4 cm. She had used it nights for 3.5 hrs a night with an AHI of 74.6/hr and her large air leak was for her total sleep time.</p><div>Jane tells me she was admitted to [facility] two weeks ago and diagnosed with acute CHF. </div><div>She presented with edema and dyspnea. She wasthere for four nights. She was treated with diuretics and used BiPAP while there. </div><div>
</div><div>Prior to her hospitalization she was not using her BiPAP at allfor a couple of weeks because she wasn't feeling well.</div><div>When she went home about 10 dys ago and since she has been home she has used her BiPAP and has been using it more regularly. She gets to bed between 8-11pm, she falls asleep easily. She wakes up 2-3/night to urinate and she gets right back to sleep. She is reapplying the BiPAP. She gets up at 6:30- 8:30 am to start her day. She naps on the couch most days.</div><div>Since using BiPAP she is waking feeling better rested.</div><div>
</div><div>
& lt;/div><div>ESS today 06/05</div><div>
</div><div>COMPLIANCE DATA REVIEWED WITH PATIENT: used / days, ave use 9.2 hours, AHI 32.8/hr, Mask fit 73%, </div>Review of Systems: ROS as noted in the HPI Review of Systems None recorded. Physical Exam ? Notes: <div>General: A&O, well groo med {{over weight obese* morbidly obese normal weight thin}}. </div><div>HE AD: normocephalic & atraumatic. </div><div>EYES: non icteric.</div><div>LUNGS : CTA all saucedo. Good air movement.</div><div>CARDIO: RRR without murmur, gallop or thrill. </div><div>NEURO: A&O. In a wheelchair.</div><div>PSYCH: Normal mood and affect.</div><div>CUTANEOUS: no overt lesions or rashes</div>
--- OUTSIDE RECORDS SUMMARY | 2021-08-29 00:31 | XMS_ITS ---
:1945 Author Care Team Providers Name Role Phone AMY GRAFF Primary Care Provider [phone] [facility] OTHER [phone] [facility] MEDICAL RECORDS OTHER [phone] Allergies Code Code System Name Reaction Severity Status Onset 161 RxNorm Acetaminophen ? ? Active ? Adhesive Tape ? ? Active ? 3839472 RxNorm Apricot ? ? Active ? 2240 RxNorm Codeine ? ? Active ? 4603 RxNorm Furosemide ? ? Active ? 7052 RxNorm Morphine ? ? Active ? 7804 RxNorm Oxycodone ? ? Active ? 215722 RxNorm Peanut ? ? Active ? Tree Nut ? ? Active ? 36776 RxNorm Atorvastatin ? ? Deactivated ? 40513 RxNorm Docusate ? ? Deactivated ? Medications Name Status Start Date Stop Date ? ? Allergy Relief (fluticasone) 50 mcg/actuation nasal spray,suspen smitha Active ? Not available [place] 1 spray every day by intranasal route. [...] by oral route. sucralfate 1 gram tablet Completed ? 022 Take 1 tablet 4 times a day [...] Results Lab Results None recorded. Past Encounters 07/23/2021 Obstructive Sleep Apnea Syndrome Shayla Wray MARKETING ACCOUNT EXECUTIVE: [address] [place] [phone], Ph. 04/15/2021 Obstructive Sleep Apnea Syndrome Shayla Wray MARKETING ACCOUNT EXECUTIVE: [address] [place] [phone], Ph. 08/28/2020 Obstructive Sleep Apnea Syndrome Shayla Wray NP: [address] [place] [phone], Ph. 05/21/2020 Obstructive Sleep Apnea Syndrome Shayla Wray MARKETING ACCOUNT EXECUTIVE: [address] [place] [phone], Ph. Social History Tobacco Smoking Status Never Smoker Vaccine List None recorded. Plan of Care Reminders Provider Appointments None recorded. ? ? Lab None recorded. ? ? Referral None recorded. ? ? Procedures None recorded. ? ? Surgeries None recorded. ? ? Imaging None recorded. ? ? Vitals 07/23/2021 01:15PM Office 30 Height Weight BMI Blood Pressure 158.75 cm 110.22 kg 43.7 kg/m2 138/72 mm[Hg] 04/15/2021 01:00PM Office 30 Height Weight BMI Blood Pressure 158.75 cm 110.45 kg 43.8 kg/m2 122/59 mm[Hg] 08/28/2020 01:15PM Office 30 Height Weight BMI Blood Pressure 158.75 cm 115.21 kg 45.7 kg/m2 136/81 mm[Hg] 05/21/2020 02:00PM Office 30 Height Weight BMI [...]
--- OUTSIDE RECORDS SUMMARY | 2021-08-29 00:31 | XMS_ITS ---
:1945 Author Care Team Providers Name Role Phone AMY GRAFF Primary Care Provider [phone] AMY GRAFF Referring Provider [phone] Allergies Code Code System Name Reaction Severity Status Onset 161 RxNorm Acetaminophen ? ? Active ? Adhesive Tape ? ? Active ? 1883463 RxNorm Apricot ? ? Active ? 2670 RxNorm Codeine ? ? Active ? 2773 RxNorm Furosemide ? ? Active ? 285237 RxNorm Lasix ? ? Active ? 7052 RxNorm Morphine ? ? Active ? 7804 RxNorm Oxycodone ? ? Active ? 204412 RxNorm Peanut ? ? Active ? 67788 RxNorm Percocet ? ? Active ? Tree Nut ? ? Active ? Medications Name Status Start Date Stop Date ? ? Allergy Relief (fluticasone) 50 mcg/actuation nasal spray,suspen smitha Active ? Not available [place] 1 spray every day by intranasal route. [...] not avai lable ? Bilateral Knee Prosthetic Unicompartment al Information not available Arthroplasty ? Carpal Tunnel Surgery Information not av ailable ? Biopsy of Temporal Artery Information no t available Results Lab Results None recorded. Past Encounters None recorded. Social History Tobacco Smoking Status Never Smoker Vaccine List None recorded. Plan of Care Reminders Provider Appointments None recorded. ? ? Lab None recorded. ? ? Referral None recorded. ? ? Procedures None recorded. ? ? Surgeries None recorded. ? ? Imaging None recorded. ? ? Vitals Blood Pressure 124/62 mm[Hg]
--- NOTE | 2021-08-29 06:30 | DI.US_ITS ---
APPROVED REPORT EXAM: Comprehensive 2D, Doppler, and color-flow Echocardiogram Patient Location: Out-Patient Pharm Tech: Ashely Quevedo RDCS (AE) Indications: .Exac of CHF Other Information Study Quality: Fair. Technically limited study due to body habitus, inability to position patient. Conclusion Technically limited study Left ventricle appears grossly normal in size and systolic function. Estimated ejection is approxima tely 55%. Segmental wall motion could not be reliably assessed The right ventricle and both atria were not well visualized The aortic valve is trileaflet and sclerotic without stenosis or regurgitation Mild mitral annular calcification. There is mild mitral regurgitation Normal tricuspid valve with trace to mild regurgitation. Estimated right ventricular systolic pressu re is 50 mmHg Wall motion Left Ventricle The left ventricle is normal size. The overall left ventricular systolic function appears normal. The re is normal left ventricular wall thickness. Regional wall motion abnormalities cannot be excluded. There is no ventricular septal defect visualized. LVEF is 55%. Right Ventricle Right ventricle is not well visualized. Right ventricular systolic function could not be assessed. Th e RVSP is 50.5 mmHg. Atria Left atrium is not well visualized. Right atrium is not well visualized. The interatrial septum is in tact with no evidence for an atrial septal defect. Aortic Valve The Aortic valve is sclerotic. Aortic valve is trileaflet. There is no aortic valvular stenosis. No a ortic regurgitation is present. Mitral Valve Mild mitral annular calcification. No evidence of mitral valve stenosis. Mild mitral regurgitation. Tricuspid Valve The tricuspid valve is normal in structure. There is no tricuspid valve stenosis. Trace to mild tricu spid regurgitation. Pulmonic Valve The pulmonary valve is normal in structure. There is no pulmonic valvular stenosis. Trace pulmonic re gurgitation. Great Vessels The aortic root is normal in size. Ascending aorta is not well visualized. The IVC collapses <50% wit h inspiration. Pericardium There is no pericardial effusion. 2D Dimensions IVSD d PLAX 0.86 cm F: 0.6-1.0 LVPW d PLAX 0.87 cm F: 0.6 - 1.0 LVID d PLAX 4.33 cm F: 3.8 - 5.2 LVDs 3.10 cm F: 2.2 - 3.5 Ao Root d 3.03 cm F: 2.7 - 3.3 Ao Asc Diam d 3.36 cm F: 2.3 - 3.1 LV EF Teichholz 54.1 % FS 27.70 % LV Diastology MV E Vmax 1.45 (0.4-1.3 m/s) Aortic Valve LVOT Area 3.22 cm2 AoV Area Vmax 1.84 cm2 LVOT Vmax 0.51 m/s MICHELLE Mean Tunde. 1.80 cm2 LVOT Mean Tunde. 0.35 m/s LVOT Peak Grad 1.1 mmHg LVOT Mean Grad 0.6 mmHg LVOT VTI 0.119 m LVOT Diam s 2.00 cm AoV Vmax 0.90 m/s Velocity Ratio 0.56 AoV Mean Tunde. 0.63 m/s AoV Peak Grad 3.2 mmHg LVOT SV 38.38 mL AoV Mean Grad 1.9 mmHg AoV VTI 0.202 m AoV Area VTI 1.90 cm2 Mitral Valve MV DT 205 (160-240 msec) MV PHT 59 msec MV Area PHT 3.70 cm2 MV VTI 0.220 m MV Area VTI 1.75 (4.0-6.0 cm2) Pulmonary Valve PV Vmax 0.93 (0.5-1.5 m/s) RVOT Peak Gr. 1.72 mmHg PV Peak Grad 3.5 mmHg RVOT Mean Gr. 1.10 mmHg PV Mean Grad 1.9 mmHg RVOT VTI 0.174 m PV VTI 0.210 m RVOT Vmax 0.66 m/s Tricuspid Valve TR Peak Grad 42.5 mmHg TR Vmax 3.26 m/s RA Pressure 8.00 mmHg RVSP (TR) 50.5 mmHg
== END 2021-08-29 00:50 ==
PROVIDERS: PCP Nurse Practitioner Adult Health; Visit Provider Nurse Practitioner Adult Health
DX: I50.9 Heart failure, unspecified (principal)
CPT/HCPCS: 93306

== ENCOUNTER 2021-10-06 03:41 | Outpatient (CLI) | payer MEDICARE, SELFPAY ==
[2021-10-06 13:53] LABS: Hemoglobin A1C 7.5 % (<5.7)
[2021-10-06 14:30] LABS: Anion Gap 6.5 mmol/L (3-11); BUN 43 mg/dL (7-18); CO2 32.5 mmol/L (21.0-32.0); Calcium 9.2 mg/dL (8.5-10.1); Chloride 101 mmol/L (98-107); Estimated GFR 24.36 (mL/min/1.73m2); Glucose 141 mg/dL (74-106); Magnesium 1.7 mg/dL (1.8-2.4); Potassium 4.1 mmol/L (3.5-5.1); Sodium 140 mmol/L (136-145)
== END 2021-10-06 03:42 | disposition home or self-care (01) ==
LOC: LBO 03:41
PROVIDERS: PCP Nurse Practitioner Adult Health; Visit Provider Nurse Practitioner Adult Health
DX: E11.22 Type 2 diabetes mellitus with diabetic chronic kidney disease (principal); E83.42 Hypomagnesemia; E16.2 Hypoglycemia, unspecified; N18.30 Chronic kidney disease, stage 3 unspecified; Z79.4 Long term (current) use of insulin
CPT/HCPCS: 36415; 80048; 83036; 83735

== ENCOUNTER 2021-10-20 04:23 | Outpatient (CLI) | payer MEDICARE, SELFPAY | END 2021-10-20 04:24 | disposition home or self-care (01) | LOC: RT 04:23 | PROVIDERS: PCP Nurse Practitioner Adult Health; Visit Provider Nurse Practitioner Adult Health | DX: J96.12 Chronic respiratory failure with hypercapnia (principal); E66.2 Morbid (severe) obesity with alveolar hypoventilation | CPT/HCPCS: 94618 ==

== ENCOUNTER → 2022-02-10 13:12 | Outpatient (BNVA) | payer MEDICARE, SELFPAY | PROVIDERS: PCP Nurse Practitioner Adult Health; Referring Provider Nurse Practitioner Adult Health; Visit Provider Surgery | DX: E66.9 Obesity, unspecified (principal); I10 Essential (primary) hypertension; E11.9 Type 2 diabetes mellitus without complications; G47.33 Obstructive sleep apnea (adult) (pediatric); Z99.81 Dependence on supplemental oxygen; I48.91 Unspecified atrial fibrillation; Z79.01 Long term (current) use of anticoagulants; L98.9 Disorder of the skin and subcutaneous tissue, unspecified | CPT/HCPCS: 99213 ==

== ENCOUNTER 2022-03-17 06:06 | Day surgery (SDC) | payer MEDICARE, SELFPAY ==
--- NOTE | 2022-03-16 20:15 | W.PREOPHP ---
Assessment and Plan Assessment and plan (1) Lipoma: Status: Acute Assessment and plan: plan for surgical excision of bilateral arm lipomas I did explain the increased risk of bleeding in light of her anticoagulation. She understands that risk, she still wishes to proceed. History of Present Illness History of Present Illness Chief Complaint: arm lipomas Narrative: Jane is a 58 year old woman wiht painful lipomas on both upper extremities. She has a history of hypertension, CHF, type 2 diabetes, YARELY, CKD, pulmonary hypertension, atrial fibrillation and obesity presents for further evaluation of lipomas on her left and right arms.? She states these areas are often sore when bumped.? She is also expressing aesthetically they are bothersome.? In the office, she complained of left forearm and right upper arm lipomas. Today, she is a little less certain about which ones cause discomfort. She is very clear that her left forearm is bothersome, but today, rather than the upper arm, she complains of small lipomas in the right forearm that are uncomfortable. I examined the right upper extremity both above and below the elbow and asked her specifically which ones are bothersome, and she highlights a few on her forearm, rather than her upper arm. She wishes to have these excised.? Patient is on 4 L of supplemental oxygen.? She is also chronically anticoagulated for her atrial fibrillation.? She expresses that she is unable to stop her anticoagulation per her composite technician. PFSH All Active Problems CHF (congestive heart failure) (Chronic 02/23/14) Preserved EF (10/2020 & 08/2021 ECHO) Obstructive sleep apnea (Chronic 02/23/14) Sleep Med Referral, 04/17/2019-->Very severe YARELY; CPAP ([facility]) with continuous O2, new Panda C-Pap 01/2021 Type II diabetes mellitus (Chronic) Hypertension (Chronic) Hyperlipidemia (Chronic) Atrial fibrillation (Chronic) Apixaban Anemia (Chronic) Pulmonary hypertension (Chronic) CKD (chronic kidney disease) (Chronic) Dependence on supplemental oxygen (Chronic) YARELY + Pulm HTN Palliative care status (Chronic) Full code status (Chronic) Chronic low back pain (Chronic 07/24/15) CT-lumbar spine 2019-- Severe multilevel degenerative changes in the lumbar spine resulting in neural foraminal and central spinal canal stenosis. Renal calculi (Chronic) Non obstructive per CT Chronic anticoagulation (Chronic) AF--Apixaban Risk for falls (Chronic) Sciatica of right side without back pain (Acute) RX Medrol Sedentary lifestyle (Chronic) B12 deficiency (Chronic) Start B12 injections; elevated MCV Chronic respiratory failure with hypercapnia (Chronic) Obesity hypoventilation syndrome (Chronic) Obesity + Severe YARELY + Chronic Hypercapnia Dependent on walker for ambulation (Chronic) Hypomagnesemia (Acute ~07/2021) Mild mitral valve regurgitation (Acute ~08/2021) ECHO Trace tricuspid valve regurgitation (Acute ~08/2021) ECHO Lipoma (Acute) Medical History Adult body mass index 50.0-59.9 Carpal tunnel syndrome, bilateral (12/17/16) Dietary counseling reviewed sodium levels in her food, how to count mg, goal of 1500 mg daily due to CHF 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 Folate deficiency Low 12/2018; resolved 05/2019 labs; discontinued 02/05/2020 h/o elbow fx H/O fracture of nose H/O rotator cuff tear Heme + stool [facility] Upper GI Endoscopy Peptic Duodenitis (pathology report); repeat hemoccults NEG 11/2019 HTN (hypertension) Insulin dependent diabetes mellitus Iron deficiency EGD 05/23/19 at [facility]; discont supp iron & vit c 02/05/2020; Hgb stable and iron constipating; she will obtain dietarily Lipoma of arm YARELY (obstructive sleep apnea) Peptic ulcer of duodenum [facility] Path reports upper endoscopy; RX Carafate Restrictive lung disease (~03/2014) PFTs validated 04/04/2014-->see scanned docs Spinal stenosis, lumbar Surgical History Biopsy, Temporal Artery (01/18/15) DR.C YOUNG Colonoscopy - [facility] (08/14/16) History of carpal tunnel repair Left- 1998 Right- 2018 History of shoulder surgery Right shoulder repair - 2004 History of total abdominal hysterectomy and bilateral salpingo-oophorectomy (~02/1999) History of total bilateral knee replacement History of total knee arthroplasty bilateral Family History Mother Heart disease Father Heart disease Lung cancer Brother Heart disease AAA (abdominal aortic aneurysm, ruptured) Brother Obesity Son No problems noted. Daughter Stillborn, abnormal Daughter No problems noted. 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 Pets and animals: Yes Pets and animals: cat(s) Sexually active: No Do you think of yourself as: straight/heterosexual Current gender identity: female What is your relationship status?: How often do you talk on the phone with friends or family?: once per week How often do you get together with friends or relatives?: once per week Panel score (0-1 are the most socially isolated patients): 0 What type of physical activity do you participate in: none and sedentary lifestyle Special jakob needs: No Agree to transfusion: Yes Seatbelt use: always In current or past relationships, have you been: made to feel afraid Do you feel safe at home: Yes Do you feel safe in your relationship?: Yes Additional Social history: per preop: Lives with son [place]dias in [facility]. He works. He never left home. She is on home oxygen. Spends most of her day watching TV, sitting on couch. Has a cat. Never smoked. Has been 3 times. 2 husbands have , from one. Daughter lives in [place] with her 8 kids. Meds Allergies and Home Medications Allergies Allergy/AdvReac Type Severity Reaction Status Date / Time codeine Allergy Severe Swelling/Ed Verified 03/17/22 06:45 warner furosemide [From Lasix] Allergy Severe Swelling/Ed Verified 03/17/22 06:45 warner morphine Allergy Severe Swelling/Ed Verified 03/17/22 06:45 warner peanut Allergy Severe Nausea Verified 03/17/22 06:45 tree nut Allergy Severe Verified 03/17/22 06:45 acetaminophen [From Percocet] Allergy Intermediate ITCHY Verified 03/17/22 06:45 adhesive tape Allergy Intermediate Skin Rash Verified 03/17/22 06:45 oxycodone HCl [From Percocet] Allergy Intermediate ITCHY Verified 03/17/22 06:45 apricot Allergy Unknown Uncoded 03/17/22 06:45 Home Medications Medication Instructions Recorded Confirmed Type calcium carbonate 600 mg-vitamin 1 tab PO BID 12/28/18 03/17/22 History D3 10 mcg (400 unit) chewable tablet (Calcium 600 with Vitamin D3) acetaminophen 500 mg tablet 500 mg PO Q6H PRN 12/04/19 03/17/22 History (Tylenol Extra Strength) atorvastatin 80 mg tablet 80 mg PO QHS #90 tabs 05/12/21 03/17/22 Rx insulin aspart U-100 100 unit/mL See Rx Instructions subcut AC DMT2 06/16/21 03/17/22 Rx (3 mL) subcutaneous pen (Novolog #90 mL Flexpen U-100 Insulin aspart) flash glucose sensor (FreeStyle #2 ea 07/01/21 02/13/22 Rx [place] 2 Sensor kit) nystatin 100,000 unit/gram topical 1 applic topical TID #60 grams 07/14/21 02/13/22 Rx powder amlodipine 5 mg tablet 5 mg PO DAILY #90 tabs 08/25/21 03/17/22 Rx magnesium oxide 400 mg (241.3 mg 400 mg PO DAILY #90 tabs 08/25/21 03/17/22 Rx magnesium) tablet apixaban 5 mg tablet (Eliquis) 5 mg PO BID #180 tabs 10/07/21 03/17/22 Rx pantoprazole 40 mg tablet,delayed 40 mg PO DAILY #90 tabs 10/07/21 03/17/22 Rx release (Protonix) insulin detemir U-100 100 unit/mL 30 unit (0.3 mL) subcut QHS #60 mL 10/13/21 03/17/22 Rx (3 mL) subcutaneous pen (Levemir FlexTouch U-100 Insulin) syringe with needle 3 mL 23 x 1 #15 ea 11/24/21 02/13/22 Rx (BD Eclipse Luer-Timi) Oxygen #1 ea 12/19/21 02/13/22 Rx pen needle, diabetic 31 gauge x #100 ea 12/26/21 02/13/22 Rx 3/16 (BD Ultra-Fine Mini Pen Needle) cyclobenzaprine 5 mg tablet 5 - 10 mg PO TID PRN muscle spasm 01/16/22 03/17/22 Rx #20 tabs cyanocobalamin (vitamin B-12) 1,000 mcg subcut QMONTH #1 ea 01/20/22 03/17/22 Rx 1,000 mcg/mL injection kit docusate sodium 100 mg capsule 100 mg PO BID 02/10/22 03/17/22 History (Colace) prednisone 20 mg tablet 20 mg PO DAILY PRN 02/10/22 03/17/22 History bumetanide 1 mg tablet 1 mg PO BID #180 tabs 02/11/22 03/17/22 Rx fluticasone propionate 50 1 spray NS DAILY PRN allergy 02/11/22 03/17/22 Rx mcg/actuation nasal symptoms #15.8 mL spray,suspension Exam Const General: cooperative, healthy appearing and comfortable Orientation: awake and oriented x3 Eyes General: appearance normal, both eyes and all related structures Conjunctivae: conjunctivae normal Sclera: sclerae normal Resp Effort & Inspection: normal respiratory effort and able to speak in complete sentences Auscultation: wheezes Cardio Jugular venous pressure: no JVD Rate: regular rate Rhythm: abnormal rhythm Heart Sounds: S1 normal and S2 normal GI Inspection: non-distended Palpation: soft, no guarding, no hernias and nontender Auscultation: normal bowel sounds Skin General skin exam: normal turgor Neuro General: patient alert, patient awake and patient oriented x3 Cognition: normal cognition Extrem Right lower extremity: no edema Left lower extremity: no edema
--- NOTE | 2022-03-16 20:18 | PDOC.DSDIS_ITS ---
Date of service: 03/17/22 Time of Service: 08:08 Discharge Plan Disposition Patient Disposition: Home Condition: Good Discharge Details Reason For Visit: Excision of skin lesions Attending Provider: Ankur Calvin Primary Care Provider: Laverne Sung Home Meds and New Rx's Prescriptions: Continued insulin aspart U-100 [Novolog Flexpen U-100 Insulin] 100 unit/mL (3 mL) insulin pen See Rx Instructions subcut AC MDD 30 units Qty: 90 3RF Rx Instructions: 2-10 units subcut before meals; For diabetes as directed with meals sliding scale: 100:0units 101-150: 2 units 151-200: 4 units 201-250: 6 units 251-300: 8 units over 300: 10 units Levemir FlexTouch U-100 Insuln 100 unit/mL (3 mL) insulin pen 30 unit subcut QHS Qty: 60 3RF (DME) FreeStyle Bradley 2 Sensor Kit See Rx Instructions .ROUTE .MEDSUPPLY Qty: 2 11RF Rx Instructions: As directed; on insulin AC & HS for goal A1C 8% nystatin 100,000 unit/gram powder 1 applic topical TID Qty: 60 1RF Rx Instructions: Apply liberal amount to skin under breast, groin folds, abd folds for 2-3 weeks or until rash resolved. acetaminophen [Tylenol Extra Strength] 500 mg tablet 500 mg PO Q6H PRN amlodipine 5 mg tablet 5 mg PO DAILY Qty: 90 3RF Rx Instructions: Blood pressure magnesium oxide 400 mg (241.3 mg magnesium) tablet 400 mg PO DAILY Qty: 90 3RF Rx Instructions: Low magnesium (DME) BD Eclipse Luer-Timi 3 mL 23 x 1 syringe See Rx Instructions .ROUTE .MEDSUPPLY Qty: 15 0RF Rx Instructions: for use with monthly self administered B12 injections docusate sodium [Colace] 100 mg capsule 100 mg PO BID prednisone 20 mg tablet 20 mg PO DAILY PRN Rx Instructions: Try for sciatic pain; no Ibuprofen/Advil/Aleve atorvastatin 80 mg tablet 80 mg PO QHS Qty: 90 3RF Rx Instructions: Cholesterol Eliquis 5 mg tablet 5 mg PO BID Qty: 180 3RF Hold Instructions: Resume on 03/18/22. pantoprazole [Protonix] 40 mg tablet,delayed release (DR/EC) 40 mg PO DAILY Qty: 90 3RF Rx Instructions: h/o GI bleed, stomach protection (DME) Oxygen Tank See Rx Instructions .ROUTE .MEDSUPPLY Qty: 1 0RF Rx Instructions: 2-5L via NC continuous (DME) pen needle, diabetic [BD Ultra-Fine Mini Pen Needle] 31 gauge x 3/16 needle See Rx Instructions .ROUTE .MEDSUPPLY Qty: 100 6RF Rx Instructions: for insulin administration qid dx E11.22 #360 Refill 3 cyclobenzaprine 5 mg tablet 5 - 10 mg PO TID PRN (Reason: muscle spasm) Qty: 20 1RF Rx Instructions: Try for sciatic pain, muscle spasm pain cyanocobalamin (vitamin B-12) 1,000 mcg/mL kit 1,000 mcg subcut QMONTH Qty: 1 11RF Rx Instructions: May self-administer at home for low B12 bumetanide 1 mg tablet 1 mg PO BID Qty: 180 3RF Rx Instructions: Diuretic for heart and swelling or as directed fluticasone propionate 50 mcg/actuation spray,suspension 1 spray NS DAILY PRN (Reason: allergy symptoms) Qty: 15.8 0RF Calcium 600 with Vitamin D3 600 mg(1,500mg) -400 unit Tablet,Chewable 1 tab PO BID Discharge Instructions Instructions: Lipoma Removal (DC) Additional Instructions: 1. Resume all of your medications, except elequis, which can be restarted tomorrow 2. Okay to use tylenol and ibuprofen over the counter as needed. 3. Heating pads and ice paks are fine to use for pain. 4. Leave bandages in place for 24 hours, then remove. 5. Shower with warm soapy water. Pat dry. Use a bandaid if needed to protect your clothing. 6. No soaking or tub baths until I see you in the office. 7. No heavy lifting until I see you in the office. 8. Call the office (or go directly to the emergency room after hours) if you notice any of the following: Develop chills (warm to touch), or if you have a thermometer and your temperature is above 101 Difficulty breathing or difficultly swallowing Persistent vomiting Any bleeding ? exceeding one tablespoon 9. Call your physician if the site where your intravenous was started becomes red, swollen, painful, and warm to touch. Referrals: Ankur Calvin MD [ [facility] STAFF PHYSICIAN] - (Follow-up with me as scheduled to check the wounds.) Activity:: Activity as Tolerated Remove Dressings/Wound Care:: 24 hours Shower/Bathe:: 24 hours Diet:: As Tolerated Discharge Orders Discharge Orders: Discharge Order (Routine); Ordered 03/16/22 Ordered By: Ankur Calvin DS: Diagnosis Discharge Diagnosis (1) Lipoma: Status: Acute Asessment and Plan: I removed 3 lipomas through 2 incisions on your right forearm, and 3 lipomas from the 3 incisions on your left forearm. The wounds are closed with absorbable suture under your skin, and skin glue. You can wash the wounds with soap and water in 24 hours. The glue will stay affixed for several days, and will generally fall off while you are washing it.
--- NOTE | 2022-03-16 20:22 | ROE_ITS ---
Date of service: 03/17/22 Time of Service: 08:10 Operative Note Operative Note DATE OF PROCEDURE: 03/17/22 PRE-OP DIAGNOSIS: Arm lipomas POST-OP DIAGNOSIS: same PROCEDURE: Excision and primary closure of bilateral upper extremity lipomas SURGEON: Ankur Calvin ANESTHESIA TYPE: Local By Surgeon Refer to Anesthesia Record ESTIMATED BLOOD LOSS: 5 PATHOLOGY: none sent COMPLICATIONS: None Patient was transported to: same day Patient's condition: stable Indications: Flo is a 76-year-old woman with bilateral painful upper extremity lipomas Findings: Simple lipomas x3 of the right forearm. Simple lipomas x3 of the left forearm Procedure Description: Before I started, I had the patient identify each individual lipoma that she found painful and wished to have removed. These were all marked. We began with the patient on the stretcher, and placed the right upper extremity on an armboard. Great care was taken to make sure that the patient was comfortable. Next, the dorsal aspect of the right forearm was prepped and draped in the usual fashion. Next, using local anesthetic, established a generous field blocks on 2 areas of the right dorsal forearm. The proximal region contained to small lipomas in close proximity to 1 another, and the distal region contained a single lipoma. Next, I made a small skin incision using a 15 blade scalpel between the area of the 2 more proximal lipomas. I dissected down through the skin to the subcutaneous tissues and performed circumferential dissection of the first lipoma. It was completely excised and passed off. This was approximately 1.5 cm x 0.5 cm. Next, I continued this dissection slightly distal to the second lipoma, which was also completely mobilized. This was approximately 1 cm x 1 cm. With both lipomas removed, the surgical site was examined. It was hemostatic. I closed the skin with an interrupted Vicryl stitch. Next I made a more distal incision over the other lipoma. In a similar fashion, I dissected down to the lipoma and performed circumferential dissection and excision. This lipoma was approximately 1 cm x 1 cm. This wound was also hemostatic, and the skin was closed with an interrupted suture. The surgical site was then completely washed, and the skin edges were closed with skin affix glue. Next, I turned my attention to the left upper extremity, similarly, this was placed on an armboard, and the patient was placed in a comfortable position. Similar to the right arm, this had 3 lipomas on the dorsal aspect of the forearm. Essentially, this was over the mobile wad. I prepped and draped the arm, and then established field blocks as described in the right upper extremity. Next, I turned my attention to dissection of the largest lipoma on the left arm. I made a skin incision that was approximately 3 and half centimeters long. I dissected down to the subcutaneous tissue, and mobilized this lipoma in its entirety. Once the base was gently excised off the underlying soft tissues, the lipoma was passed off. This was approximately 2- 1/2 cm x 3-1/2 cm. I irrigated the wound. It was hemostatic. I used interrupted Vicryl stitches to obliterate the deep potential space, and closed the skin. I then made 2 more incisions over the other lipomas. Each incision was approximately 1 and half centimeters long. The lipomas were dissected and excised as described above. These lipomas were approximately 1.5 cm x 1 cm each. These wounds were also hemostatic at the end of the excision, and the skin was closed in a similar manner with interrupted deep stitches. Surgical site was then washed, and all of these incisions were closed with skin affix glue. Patient tolerated this procedure just fine. There were no complications. No specimens were sent.
[2022-03-17 06:53] VITALS: BP 135/79; PULSE 73; RESP 16; TEMP 36.8; O2SAT 95
[2022-03-17] MEDS: Bupivacaine 0.5% Pres-Free W/EPI 30 ML VIAL (08:00)
[2022-03-17 08:08] VITALS: BP 92/58; PULSE 70; RESP 18; TEMP 36.4; O2SAT 98
== END 2022-03-17 09:02 | disposition home or self-care (01) ==
LOC: SUR 06:06
PROVIDERS: PCP Nurse Practitioner Adult Health; Visit Provider Surgery
PROC: (CPT 11404; principal; 2022-03-17 07:30)
DX: D17.21 Benign lipomatous neoplasm of skin and subcutaneous tissue of right arm (principal); D17.22 Benign lipomatous neoplasm of skin and subcutaneous tissue of left arm; E11.22 Type 2 diabetes mellitus with diabetic chronic kidney disease; Z99.81 Dependence on supplemental oxygen; I48.91 Unspecified atrial fibrillation; G47.33 Obstructive sleep apnea (adult) (pediatric); I50.30 Unspecified diastolic (congestive) heart failure; Z79.4 Long term (current) use of insulin
CPT/HCPCS: 11404; 11401 ×2; 11402 ×3

== ENCOUNTER → 2022-04-27 12:51 | Outpatient (BNVA) | payer MEDICARE, SELFPAY | PROVIDERS: PCP Nurse Practitioner Adult Health; Referring Provider Nurse Practitioner Adult Health; Visit Provider Surgery | DX: D17.21 Benign lipomatous neoplasm of skin and subcutaneous tissue of right arm (principal); D17.22 Benign lipomatous neoplasm of skin and subcutaneous tissue of left arm | CPT/HCPCS: 99212 ==

== ENCOUNTER → 2022-05-04 10:40 | Outpatient (BNVA) | payer MEDICARE, SELFPAY | PROVIDERS: PCP Nurse Practitioner Adult Health; Referring Provider Nurse Practitioner Adult Health; Visit Provider Student in an Organized Health Care Education/Training Program | DX: M65.311 Trigger thumb, right thumb (principal); G56.01 Carpal tunnel syndrome, right upper limb | CPT/HCPCS: 20550; 99213; J1030 ==

== ENCOUNTER 2022-05-15 09:48 | Inpatient (IN) | payer MEDICARE, SELFPAY ==
[2022-05-15] VITALS (39 sets, daily range): BP systolic 129–163; BP diastolic 62–72; PULSE 51–80; RESP 10–31; TEMP 36.4–36.6; O2SAT 86–99
--- NOTE | 2022-05-15 09:30 | RT.EKG_ITS ---
APPROVED REPORT Exam: Resting ECG Reason for Exam: Dyspnea Patient Location: E HR:69 bpm ECG Measurements Heart Rate 69 AXIS MA [id number] P [id number] QRSd 82 QRS -44 QT 386 T 53 QTc 414 Conclusion Atrial fibrillation...V-rate 55- 82, irreg A-activity Left axis deviation...QRS axis (-30,-90) afib, left axis, non ischemic
--- NOTE | 2022-05-15 10:15 | DI.RAD_ITS ---
Exam(s) XR PORTABLE CHEST AP EXAM: XR PORTABLE CHEST AP CLINICAL HISTORY: cough, sob, concern for chf. TECHNIQUE: 2D digital imaging was performed. COMPARISON: CR XR PORTABLE CHEST AP from 07/09/2021 FINDINGS: Single AP portable view. Heart size is mildly prominent. The mediastinum is not widened. Bilateral increased markings are similar to the previous study. Suspect element of pulmonary edema. No obvious pleural effusions. Incidentally noted is an accessory azygos lobe the right side. Also postsurgical widening of the right AC joint. No acute osseous findings. IMPRESSION: Mild cardiomegaly. Pulmonary venous hypertension pattern. Similar to the prior study of 07/09/2021. DATA REPOSITORY: RADIATION DOSE DELIVERED:
--- NOTE | 2022-05-15 10:28 | W.ED.GENAD ---
Discharge Plan Disposition Patient Disposition: Admit to [facility] Condition: Stable Discharge Details Chief Complaint: SOB Clinical Impression: CHF (congestive heart failure), Hypoxia Primary Care Provider: Laverne Sung ED Provider: Jose Oropeza Home Meds and New Rx's Prescriptions: No Action insulin aspart U-100 [Novolog FlexPen U-100 Insulin] 100 unit/mL (3 mL) insulin pen See Rx Instructions subcut AC MDD 30 units Qty: 90 3RF Rx Instructions: 2-10 units subcut before meals; For diabetes as directed with meals sliding scale: 100:0units 101-150: 2 units 151-200: 4 units 201-250: 6 units 251-300: 8 units over 300: 10 units (DME) FreeStyle Bradley 2 Sensor Kit See Rx Instructions .ROUTE .MEDSUPPLY Qty: 2 11RF Rx Instructions: As directed; on insulin AC & HS for goal A1C 8% acetaminophen [Tylenol Extra Strength] 500 mg tablet 500 mg PO Q6H PRN amlodipine 5 mg tablet 5 mg PO DAILY Qty: 90 3RF Rx Instructions: Blood pressure magnesium oxide 400 mg (241.3 mg magnesium) tablet 400 mg PO DAILY Qty: 90 3RF Rx Instructions: Low magnesium (DME) BD Eclipse Luer-Timi 3 mL 23 x 1 syringe See Rx Instructions .ROUTE .MEDSUPPLY Qty: 15 0RF Rx Instructions: for use with monthly self administered B12 injections docusate sodium [Colace] 100 mg capsule 100 mg PO BID Eliquis 5 mg tablet 5 mg PO BID Qty: 180 3RF Hold Instructions: Resume on 03/18/22. pantoprazole [Protonix] 40 mg tablet,delayed release (DR/EC) 40 mg PO DAILY Qty: 90 3RF Rx Instructions: h/o GI bleed, stomach protection (DME) Oxygen Tank See Rx Instructions .ROUTE .MEDSUPPLY Qty: 1 0RF Rx Instructions: 2-5L via NC continuous (DME) pen needle, diabetic [BD Ultra-Fine Mini Pen Needle] 31 gauge x 3/16 needle See Rx Instructions .ROUTE .MEDSUPPLY Qty: 100 6RF Rx Instructions: for insulin administration qid dx E11.22 #360 Refill 3 cyanocobalamin (vitamin B-12) 1,000 mcg/mL kit 1,000 mcg subcut QMONTH Qty: 1 11RF Rx Instructions: May self-administer at home for low B12 bumetanide 1 mg tablet 1 mg PO BID Qty: 180 3RF Rx Instructions: Diuretic for heart and swelling or as directed fluticasone propionate 50 mcg/actuation spray,suspension 1 spray NS DAILY PRN (Reason: allergy symptoms) Qty: 15.8 0RF insulin glargine 100 unit/mL (3 mL) insulin pen 32 unit subcut DAILY MDD 50 units/24 hours Qty: 45 3RF atorvastatin 80 mg tablet 80 mg PO QHS Qty: 90 3RF Rx Instructions: Cholesterol Calcium 600 with Vitamin D3 600 mg(1,500mg) -400 unit Tablet,Chewable 1 tab PO BID Medical Decision Making 76-year-old female history of CHF diabetes, A-fib, presents with shortness of breath over the last several days to weeks, worsening orthopnea, uses 4 L nasal cannula, patient does have peripheral edema bilateral lower extremities, A-fib rate controlled currently, saturating 89 to 90% on 4 L nasal cannula, diminished breath sounds bilaterally moderately tachypneic, however speaking in full sentences, bilateral B-lines on bedside ultrasound consistent with pulmonary edema, high clinical suspicion for CHF exacerbation muscles consider ACS, less likely PE or pneumonia or infectious etiology such as COVID/flu however will swab. Will obtain chest x-ray, labs, troponin BNP, patient has a listed allergy to Lasix therefore will administer thiazide diuretic. Disposition pending reassessment of symptoms after diuresis 13: 40 patient resting more comfortably starting to diurese. Intermittently desaturating to the high 80s on 4 L nasal cannula will stabilize around 91-92%. Patient to be admitted for further diuresis HPI General Date/Time Provider Initiated Documentation: 05/15/22 10:06. HPI Narrative: 76-year-old female history of CHF diabetes hypertension A-fib presents with worsening shortness of breath and orthopnea over the last several days endorses feeling as though she has gained some weight as well. Uncomfortable when lying flat has been sitting up at night. Uses 4 L nasal cannula at home at baseline. Related Data Home Medications Medication Instructions Recorded Confirmed calcium carbonate 600 mg-vitamin 1 tab PO BID 12/28/18 05/15/22 D3 10 mcg (400 unit) chewable tablet (Calcium 600 with Vitamin D3) acetaminophen 500 mg tablet 500 mg PO Q6H PRN 12/04/19 05/15/22 (Tylenol Extra Strength) insulin aspart U-100 100 unit/mL See Rx Instructions subcut AC DMT2 06/16/21 05/15/22 (3 mL) subcutaneous pen (Novolog #90 mL FlexPen U-100 Insulin aspart) flash glucose sensor (FreeStyle #2 ea 07/01/21 05/15/22 Bradley 2 Sensor kit) amlodipine 5 mg tablet 5 mg PO DAILY #90 tabs 08/25/21 05/15/22 magnesium oxide 400 mg (241.3 mg 400 mg PO DAILY #90 tabs 08/25/21 05/15/22 magnesium) tablet apixaban 5 mg tablet (Eliquis) 5 mg PO BID #180 tabs 10/07/21 05/15/22 pantoprazole 40 mg tablet,delayed 40 mg PO DAILY #90 tabs 10/07/21 05/15/22 release (Protonix) syringe with needle 3 mL 23 x 1 #15 ea 11/24/21 05/15/22 (BD Eclipse Luer-Timi) Oxygen #1 ea 12/19/21 05/15/22 pen needle, diabetic 31 gauge x #100 ea 12/26/21 05/15/22 3/16 (BD Ultra-Fine Mini Pen Needle) cyanocobalamin (vitamin B-12) 1,000 mcg subcut QMONTH #1 ea 01/20/22 05/15/22 1,000 mcg/mL injection kit docusate sodium 100 mg capsule 100 mg PO BID 02/10/22 05/15/22 (Colace) bumetanide 1 mg tablet 1 mg PO BID #180 tabs 02/11/22 05/15/22 fluticasone propionate 50 1 spray NS DAILY PRN allergy 02/11/22 05/15/22 mcg/actuation nasal symptoms #15.8 mL spray,suspension insulin glargine 100 unit/mL (3 32 unit (0.32 mL) subcut DAILY #45 04/10/22 05/15/22 mL) subcutaneous pen mL atorvastatin 80 mg tablet 80 mg PO QHS #90 tabs 05/11/22 05/15/22 Previous Rx's Medication Instructions Recorded insulin aspart U-100 100 unit/mL See Rx Instructions subcut AC DMT2 06/16/21 (3 mL) subcutaneous pen (Novolog #90 mL FlexPen U-100 Insulin aspart) flash glucose sensor (FreeStyle #2 ea 07/01/21 Bradley 2 Sensor kit) amlodipine 5 mg tablet 5 mg PO DAILY #90 tabs 08/25/21 magnesium oxide 400 mg (241.3 mg 400 mg PO DAILY #90 tabs 08/25/21 magnesium) tablet apixaban 5 mg tablet (Eliquis) 5 mg PO BID #180 tabs 10/07/21 pantoprazole 40 mg tablet,delayed 40 mg PO DAILY #90 tabs 10/07/21 release (Protonix) syringe with needle 3 mL 23 x 1 #15 ea 11/24/21 (BD Eclipse Luer-Timi) Oxygen #1 ea 12/19/21 pen needle, diabetic 31 gauge x #100 ea 12/26/21 3/16 (BD Ultra-Fine Mini Pen Needle) cyanocobalamin (vitamin B-12) 1,000 mcg subcut QMONTH #1 ea 01/20/22 1,000 mcg/mL injection kit bumetanide 1 mg tablet 1 mg PO BID #180 tabs 02/11/22 fluticasone propionate 50 1 spray NS DAILY PRN allergy 02/11/22 mcg/actuation nasal symptoms #15.8 mL spray,suspension insulin glargine 100 unit/mL (3 32 unit (0.32 mL) subcut DAILY #45 04/10/22 mL) subcutaneous pen mL atorvastatin 80 mg tablet 80 mg PO QHS #90 tabs 05/11/22 Allergies Allergy/AdvReac Type Severity Reaction Status Date / Time codeine Allergy Severe Swelling/Ed Verified 05/15/22 10:12 warner furosemide [From Lasix] Allergy Severe Swelling/Ed Verified 05/15/22 10:12 warner morphine Allergy Severe Swelling/Ed Verified 05/15/22 10:12 warner peanut Allergy Severe Nausea Verified 05/15/22 10:12 tree nut Allergy Severe Verified 05/15/22 10:12 acetaminophen [From Percocet] Allergy Intermediate ITCHY Verified 05/15/22 10:12 adhesive tape Allergy Intermediate Skin Rash Verified 05/15/22 10:12 oxycodone HCl [From Percocet] Allergy Intermediate ITCHY Verified 05/15/22 10:12 apricot Allergy Unknown Uncoded 05/15/22 10:12 General Stated Complaint: SOB GERALDINE: 3 Review of Systems Narrative: Review of Systems Constitutional: negative Eyes: negative ENT: negative Cardiovascular: negative Respiratory: Shortness of breath Gastrointestinal: negative : negative Musculoskeletal: negative Skin: negative Neurologic: negative Psych: negative PFSH All Active Problems (Updated 05/15/22 @ 13:41 by Jose Oropeza MD) Hypoxia (Acute) Trigger finger, right middle finger (Acute) Injection: 05/04/2022 Right carpal tunnel syndrome (Acute) CHF (congestive heart failure) (Chronic 02/23/14) Preserved EF (10/2020 & 08/2021 ECHO) Obstructive sleep apnea (Chronic 02/23/14) Sleep Med Referral, 04/17/2019-->Very severe YARELY; CPAP ([facility]) with continuous O2, new Panda C-Pap 01/2021 Type II diabetes mellitus (Chronic) Hypertension (Chronic) Hyperlipidemia (Chronic) Atrial fibrillation (Chronic) Apixaban Anemia (Chronic) Pulmonary hypertension (Chronic) CKD (chronic kidney disease) (Chronic) Dependence on supplemental oxygen (Chronic) YARELY + Pulm HTN Palliative care status (Chronic) Full code status (Chronic) Chronic low back pain (Chronic 07/24/15) CT-lumbar spine 2019-- Severe multilevel degenerative changes in the lumbar spine resulting in neural foraminal and central spinal canal stenosis. Chronic anticoagulation (Chronic) AF--Apixaban Risk for falls (Chronic) Sedentary lifestyle (Chronic) B12 deficiency (Chronic) Start B12 injections; elevated MCV Chronic respiratory failure with hypercapnia (Chronic) Obesity hypoventilation syndrome (Chronic) Obesity + Severe YARELY + Chronic Hypercapnia Dependent on walker for ambulation (Chronic) Hypomagnesemia (Acute ~07/2021) Mild mitral valve regurgitation (Acute ~08/2021) ECHO Trace tricuspid valve regurgitation (Acute ~08/2021) ECHO Medical History Adult body mass index 50.0-59.9 Carpal tunnel syndrome, bilateral (12/17/16) Dietary counseling reviewed sodium levels in her food, how to count mg, goal of 1500 mg daily due to CHF 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 Folate deficiency Low 12/2018; resolved 05/2019 labs; discontinued 02/05/2020 h/o elbow fx H/O fracture of nose H/O rotator cuff tear Heme + stool [facility] Upper GI Endoscopy Peptic Duodenitis (pathology report); repeat hemoccults NEG 11/2019 HTN (hypertension) Insulin dependent diabetes mellitus Iron deficiency EGD 05/23/19 at [facility] [place] [place]; discont supp iron & vit c 02/05/2020; Hgb stable and iron constipating; she will obtain dietarily Lipoma Lipoma of arm YARELY (obstructive sleep apnea) Peptic ulcer of duodenum [facility] [place] [place] Path reports upper endoscopy; RX Carafate Renal calculi Non obstructive per CT Restrictive lung disease (~03/2014) PFTs validated 04/04/2014-->see scanned docs Sciatica of right side without back pain RX Medrol Spinal stenosis, lumbar Surgical History Biopsy, Temporal Artery (01/18/15) DR.C YOUNG Colonoscopy - [facility] [place] (08/14/16) History of carpal tunnel repair Left- 1998 Right- 2017 History of shoulder surgery Right shoulder repair - 2004 History of total abdominal hysterectomy and bilateral salpingo-oophorectomy (~02/1999) History of total bilateral knee replacement History of total knee arthroplasty bilateral Family History Mother Heart disease Father Heart disease Lung cancer Brother Heart disease AAA (abdominal aortic aneurysm, ruptured) Brother Obesity Son No problems noted. Daughter Stillborn, abnormal Daughter No problems noted. Social History Smoking/Tobacco Use Status: Never Second Hand Exposure: Yes Smoking risk assessment performed?: Yes Alcohol Intake: former Details: never drank heavily but her husbands did Drug use: Never Substance use type: does not use Adopted: No Caregiver/Support person: Yes Foster care: No Household members: children Housing: house Number of Children: 2 number of grandchildren: 8 Communication Needs: Corrective Lenses Education Level: middle school Do you need help understanding health information?: Always current occupation: Retired- [employer] Pets and animals: Yes Pets and animals: cat(s) Sexually active: No Do you think of yourself as: straight/heterosexual Current gender identity: female What is your relationship status?: How often do you talk on the phone with friends or family?: once per week How often do you get together with friends or relatives?: once per week Panel score (0-1 are the most socially isolated patients): 0 What type of physical activity do you participate in: none and sedentary lifestyle Special jakob needs: No Agree to transfusion: Yes Seatbelt use: always In current or past relationships, have you been: made to feel afraid Do you feel safe at home: Yes Do you feel safe in your relationship?: Yes Additional Social history: per preop: Lives with son Abdias in house trailer. He works. He never left home. She is on home oxygen. Spends most of her day watching TV, sitting on couch. Has a cat. Never smoked. Has been 3 times. 2 husbands have , from one. Daughter lives in [place] with her 8 kids. Exam Narrative Exam Narrative: Physical Examination General: alert, awake, cooperative, appears moderately uncomfortable HEENT: normocephalic, atraumatic; PERRL, EOM intact, conjunctiva normal; no nasal discharge; moist mucous membranes, oral and pharyngeal mucosa normal, tolerating secretions Neck: supple, trachea midline; full ROM Chest: normal to inspection Respiratory: Moderately tachypneic, diminished bilaterally Cardiac: regular rate, regular rhythm, S1S2 intact, no murmurs rubs or gallops GI: abdomen soft, non-tender, non-distended; no palpable mass or hepatosplenomegaly Skin: no lesions, rashes or trauma appreciated Neuro: AAOx3, normal speech, moving all extremities Extremities: Chronic peripheral edema bilateral lower extremities Psych: Appropriate mood and affect Course Vital Signs Vital signs: Vital Signs Temperature 36.4 C 05/15/22 09:51 Pulse 65 05/15/22 09:51 Respiratory Rate 14 05/15/22 09:51 Blood Pressure 163/64 H 05/15/22 09:51 Pulse Oximetry 99 05/15/22 09:51 Temperature 36.4 C 05/15/22 09:51 Temperature Source Oral 05/15/22 09:51 Pulse 65 05/15/22 09:51 Respiratory Rate 18 05/15/22 10:04 Respiratory Effort Short of Breath, Labored 05/15/22 10:04 Respiratory Depth Normal 05/15/22 10:04 Respiratory Pattern Normal 05/15/22 10:04 Blood Pressure 163/64 H 05/15/22 09:51 Blood Pressure Position Sitting 05/15/22 09:51 Pulse Oximetry 93 05/15/22 10:00 Oxygen Delivery Method OxyMask 05/15/22 10:00 Oxygen Flow Rate 4.5 05/15/22 10:00 Pain Level 0 05/15/22 09:51
[2022-05-15 10:32] LABS: Abs Immature Grans 0.02 10^3/uL (0.0-0.06); Absolute Basophil Count 0.06 10^3/uL (0.0-0.2); Absolute Eosinophil Count 0.18 10^3/uL (0.0-0.7); Absolute Lymphocyte Count 1.42 10^3/uL (1.2-3.4); Absolute Neutrophil Count 4.74 10^3/uL (1.2-6.7); Basophils % 0.9; Eosinophils % 2.6; HCT 37.9 % (36.0-46.0); Immature Grans % 0.3; Lymphocytes % 20.8; MCHC 31.7 % (32.0-36.0); MCV 104 fL (80-95); MPV 10.3 fL (8.0-11.0); Monocytes % 5.9; Neutrophils % 69.5; Platelet Count 209 10^3/uL (130-400); RBC 3.64 10^6/uL (3.93-5.22); RDW 15.9 % (11.7-14.6); RDW-SD 61.1 fL; WBC 6.82 10^3/uL (4.4-10.8)
[2022-05-15] MEDS: Chlorthalidone 25 MG TAB PO (10:40)
[2022-05-15 11:01] LABS: ALT 12 U/L (14-59); AST 11 U/L (15-37); Albumin 3.3 g/dL (3.4-5.0); Alkaline Phosphatase 73 U/L (46-116); Anion Gap 2.1 mmol/L (3-11); BUN 41 mg/dL (7-18); Bilirubin, Total 0.5 mg/dL (0.2-1.0); CO2 36.9 mmol/L (21.0-32.0); CREATININE 2.3 mg/dL (0.55-1.02); Calcium 8.6 mg/dL (8.5-10.1); Chloride 102 mmol/L (98-107); Estimated GFR 21.62 (mL/min/1.73m2); Glucose 164 mg/dL (74-106); NT-proBNP 6833 pg/mL (<300); Potassium 4.2 mmol/L (3.5-5.1); Sodium 141 mmol/L (136-145); Troponin I < 50 ng/L (<or=60)
[2022-05-15 11:09] LABS: COVID-19 PCR Negative (Negative); Influenza A PCR Negative (Negative); Influenza B PCR Negative (Negative); RSV PCR Negative (Negative)
[2022-05-15 11:12] LABS: Source Nasopharynx
[2022-05-15 13:30] LABS: Troponin I < 50 ng/L (<or=60)
--- NOTE | 2022-05-15 14:13 | HPE_ITS ---
Date of service: 05/15/22 Time of Service: 14:13 Assessment and Plan Assessment and plan (1) CHF (congestive heart failure): Status: Acute Assessment and plan: continue diuresing continue to follow I&O, daily weights last echo August 2021 shows LVEF is 50-55% The RVSP is 36.6 mmHg. will update on this visit if available. Qualifiers: Heart failure chronicity: chronic Heart failure type: unspecified Qualified Code(s): I50.9 - Heart failure, unspecified (2) Obstructive sleep apnea treated with BiPAP: Status: Deleted Assessment and plan: continue home therapy while hospitalized (3) Chronic anticoagulation: Status: Chronic Assessment and plan: on apixaban for chronic atrial fibrillation. (4) Type II diabetes mellitus: Status: Chronic Assessment and plan: continue diabetic diet with sliding scale coverage ac/hs continue home medications A1C 7.8 in Mar 2022 Qualifiers: Chronic kidney disease stage: stage 3 (moderate) Diabetes mellitus complication detail: with chronic kidney disease Diabetes mellitus complication status: with kidney complications Diabetes mellitus fci insulin use: with fci use Qualified Code(s): E11.22 - Type 2 diabetes mellitus with diabetic chronic kidney disease; N18.3 - Chronic kidney disease, stage 3 (moderate); Z79.4 - correction (current) use of insulin (5) CKD (chronic kidney disease): Status: Chronic Assessment and plan: creatinine stable and at baseline. avoid nephrotoxic drugs. Qualifiers: Chronic kidney disease stage: stage 4 (severe) Qualified Code(s): N18.4 - Chronic kidney disease, stage 4 (severe) (6) Discharge planning issues: Status: Deleted Assessment and plan: case management following discussed with Dr Hartmann History of Present Illness History of Present Illness Chief Complaint: shortness of breath Review of Systems Constitutional Constitutional: Reports system reviewed and no additional complaints, except as documented PFSH All Active Problems (Updated 05/15/22 @ 14:14 by Myah Victor NP) Hypoxia (Acute) Trigger finger, right middle finger (Acute) Injection: 05/04/2022 Right carpal tunnel syndrome (Acute) CHF (congestive heart failure) (Acute 02/23/14) Preserved EF (10/2020 & 08/2021 ECHO) Obstructive sleep apnea (Chronic 02/23/14) Sleep Med Referral, 04/17/2019-->Very severe YARELY; CPAP ([facility]) with continuous O2, new Panda C-Pap 01/2021 Type II diabetes mellitus (Chronic) Hypertension (Chronic) Hyperlipidemia (Chronic) Atrial fibrillation (Chronic) Apixaban Anemia (Chronic) Pulmonary hypertension (Chronic) CKD (chronic kidney disease) (Chronic) Dependence on supplemental oxygen (Chronic) YARELY + Pulm HTN Palliative care status (Chronic) Full code status (Chronic) Chronic low back pain (Chronic 07/24/15) CT-lumbar spine 2019-- Severe multilevel degenerative changes in the lumbar spine resulting in neural foraminal and central spinal canal stenosis. Chronic anticoagulation (Chronic) AF--Apixaban Risk for falls (Chronic) Sedentary lifestyle (Chronic) B12 deficiency (Chronic) Start B12 injections; elevated MCV Chronic respiratory failure with hypercapnia (Chronic) Obesity hypoventilation syndrome (Chronic) Obesity + Severe YARELY + Chronic Hypercapnia Dependent on walker for ambulation (Chronic) Hypomagnesemia (Acute ~07/2021) Mild mitral valve regurgitation (Acute ~08/2021) ECHO Trace tricuspid valve regurgitation (Acute ~08/2021) ECHO Medical History Adult body mass index 50.0-59.9 Carpal tunnel syndrome, bilateral (12/17/16) Dietary counseling reviewed sodium levels in her food, how to count mg, goal of 1500 mg daily due to CHF 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 Folate deficiency Low 12/2018; resolved 05/2019 labs; discontinued 02/05/2020 h/o elbow fx H/O fracture of nose H/O rotator cuff tear Heme + stool [facility] Upper GI Endoscopy Peptic Duodenitis (pathology report); repeat hemoccults NEG 11/2019 HTN (hypertension) Insulin dependent diabetes mellitus Iron deficiency EGD 05/23/19 at [facility]; discont supp iron & vit c 02/05/2020; Hgb stable and iron constipating; she will obtain dietarily Lipoma Lipoma of arm YARELY (obstructive sleep apnea) Peptic ulcer of duodenum [facility] Path reports upper endoscopy; RX Carafate Renal calculi Non obstructive per CT Restrictive lung disease (~03/2014) PFTs validated 04/04/2014-->see scanned docs Sciatica of right side without back pain RX Medrol Spinal stenosis, lumbar Surgical History Biopsy, Temporal Artery (01/18/15) DR.C YOUNG Colonoscopy - [facility] (08/14/16) History of carpal tunnel repair Left- 1998 Right- 2018 History of shoulder surgery Right shoulder repair - 2004 History of total abdominal hysterectomy and bilateral salpingo-oophorectomy (~02/1999) History of total bilateral knee replacement History of total knee arthroplasty bilateral Family History Mother Heart disease Father Heart disease Lung cancer Brother Heart disease AAA (abdominal aortic aneurysm, ruptured) Brother Obesity Son No problems noted. Daughter Stillborn, abnormal Daughter No problems noted. 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 Pets and animals: Yes Pets and animals: cat(s) Sexually active: No Do you think of yourself as: straight/heterosexual Current gender identity: female What is your relationship status?: How often do you talk on the phone with friends or family?: once per week How often do you get together with friends or relatives?: once per week Panel score (0-1 are the most socially isolated patients): 0 What type of physical activity do you participate in: none and sedentary lifestyle Special jakob needs: No Agree to transfusion: Yes Seatbelt use: always In current or past relationships, have you been: made to feel afraid Do you feel safe at home: Yes Do you feel safe in your relationship?: Yes Additional Social history: per preop: Lives with son Abdias in house trailer. He works. He never left home. She is on home oxygen. Spends most of her day watching TV, sitting on couch. Has a cat. Never smoked. Has been 3 times. 2 husbands have , from one. Daughter lives in [place] with her 8 kids. Meds Allergies and Home Medications Allergies Allergy/AdvReac Type Severity Reaction Status Date / Time codeine Allergy Severe Swelling/Ed Verified 05/15/22 10:12 warner furosemide [From Lasix] Allergy Severe Swelling/Ed Verified 05/15/22 10:12 warner morphine Allergy Severe Swelling/Ed Verified 05/15/22 10:12 warner peanut Allergy Severe Nausea Verified 05/15/22 10:12 tree nut Allergy Severe Verified 05/15/22 10:12 acetaminophen [From Percocet] Allergy Intermediate ITCHY Verified 05/15/22 10:12 adhesive tape Allergy Intermediate Skin Rash Verified 05/15/22 10:12 oxycodone HCl [From Percocet] Allergy Intermediate ITCHY Verified 05/15/22 10:12 apricot Allergy Unknown Uncoded 05/15/22 10:12 Home Medications Medication Instructions Recorded Confirmed Type calcium carbonate 600 mg-vitamin 1 tab PO BID 12/28/18 05/15/22 History D3 10 mcg (400 unit) chewable tablet (Calcium 600 with Vitamin D3) acetaminophen 500 mg tablet 500 mg PO Q6H PRN 12/04/19 05/15/22 History (Tylenol Extra Strength) insulin aspart U-100 100 unit/mL See Rx Instructions subcut AC DMT2 06/16/21 05/15/22 Rx (3 mL) subcutaneous pen (Novolog #90 mL FlexPen U-100 Insulin aspart) flash glucose sensor (FreeStyle #2 ea 07/01/21 05/15/22 Rx Bradley 2 Sensor kit) amlodipine 5 mg tablet 5 mg PO DAILY #90 tabs 08/25/21 05/15/22 Rx magnesium oxide 400 mg (241.3 mg 400 mg PO DAILY #90 tabs 08/25/21 05/15/22 Rx magnesium) tablet apixaban 5 mg tablet (Eliquis) 5 mg PO BID #180 tabs 10/07/21 05/15/22 Rx pantoprazole 40 mg tablet,delayed 40 mg PO DAILY #90 tabs 10/07/21 05/15/22 Rx release (Protonix) syringe with needle 3 mL 23 x 1 #15 ea 11/24/21 05/15/22 Rx (BD Eclipse Luer-Timi) Oxygen #1 ea 12/19/21 05/15/22 Rx pen needle, diabetic 31 gauge x #100 ea 10/14/22 03/03/23 Rx 3/16 (BD Ultra-Fine Mini Pen Needle) cyanocobalamin (vitamin B-12) 1,000 mcg subcut QMONTH #1 ea 01/20/22 05/15/22 Rx 1,000 mcg/mL injection kit docusate sodium 100 mg capsule 100 mg PO BID 02/10/22 05/15/22 History (Colace) bumetanide 1 mg tablet 1 mg PO BID #180 tabs 02/11/22 05/15/22 Rx fluticasone propionate 50 1 spray NS DAILY PRN allergy 02/11/22 05/15/22 Rx mcg/actuation nasal symptoms #15.8 mL spray,suspension insulin glargine 100 unit/mL (3 32 unit (0.32 mL) subcut DAILY #45 04/10/22 05/15/22 Rx mL) subcutaneous pen mL atorvastatin 80 mg tablet 80 mg PO QHS #90 tabs 05/11/22 05/15/22 Rx Exam Const General: cooperative, comfortable and no acute distress Nutritional Appearance: overweight Orientation: alert, awake and oriented x3 HENUT Head: normal to inspection, normocephalic and atraumatic Mouth: oral mucosae normal Chest Chest: normal inspection of the chest Resp Effort & Inspection: normal respiratory effort Auscultation: diminished lung sounds (bases bilaterally) Cardio Rate: regular rate GI Inspection: normal to inspection Palpation: soft Auscultation: normal bowel sounds Neuro General: patient alert, patient awake and patient oriented x3 Extrem General: normal to inspection and edema Psych Mental Status: mental status grossly normal Speech and Movement: speech and movement normal Mood: congruent mood Affect: normal affect Results Labs 05/15/22 09:52 05/15/22 09:52 Labs: Laboratory Results - last 24 hr 05/15/22 05/15/22 05/15/22 09:52 09:52 10:17 WBC 6.82 RBC 3.64 L Hgb 12.0 Hct 37.9 MCV 104 H MCH 33.0 MCHC 31.7 L RDW 15.9 H Plt Count 209 MPV 10.3 Immature Gran % 0.3 Neutrophils % 69.5 Lymphocytes % 20.8 Monocytes % 5.9 Eosinophils % 2.6 Basophils % 0.9 Nucleated RBC % 0.0 Absolute Neutrophils 4.74 Absolute Lymphocytes 1.42 Absolute Monocytes 0.40 Absolute Eosinophils 0.18 Absolute Basophils 0.06 Sodium 141 Potassium 4.2 Chloride 102 Carbon Dioxide 36.9 H Anion Gap 2.1 L BUN 41 H Creatinine 2.3 H Est GFR (CKD-EPI 2020) 21.62 Glucose 164 H Calcium 8.6 Total Bilirubin 0.5 AST 11 L ALT 12 L Alkaline Phosphatase 73 Troponin I < 50 NT-Pro-B Natriuret Pep 6833 H Total Protein 7.0 Albumin 3.3 L COVID-19 Source Nasopharynx SARS-CoV-2 (PCR) Negative Influenza Type A (PCR) Negative Influenza Type B (PCR) Negative RSV (PCR) Negative 05/15/22 13:02 WBC RBC Hgb Hct MCV MCH MCHC RDW Plt Count MPV Immature Gran % Neutrophils % Lymphocytes % Monocytes % Eosinophils % Basophils % Nucleated RBC % Absolute Neutrophils Absolute Lymphocytes Absolute Monocytes Absolute Eosinophils Absolute Basophils Sodium Potassium Chloride Carbon Dioxide Anion Gap BUN Creatinine Est GFR (CKD-EPI 2020) Glucose Calcium Total Bilirubin AST ALT Alkaline Phosphatase Troponin I < 50 NT-Pro-B Natriuret Pep Total Protein Albumin COVID-19 Source SARS-CoV-2 (PCR) Influenza Type A (PCR) Influenza Type B (PCR) RSV (PCR) Last Vital Signs Temp 36.4 C 05/15/22 09:51 Pulse 59 L 05/15/22 14:00 Resp 29 H 05/15/22 14:10 BP 136/68 05/15/22 14:00 Pulse Ox 92 05/15/22 14:10 Time Spent Time spent with Patient: 40-54 minutes Time was spent: preparing to see the patient(eg.review tests), obtaining and/or reviewing separately otained hiistory, ordering medications,tests, procedures, referring, communicating with other health career center advisor and indepentently interpreting results
--- NOTE | 2022-05-15 15:31 | DI.US_ITS ---
APPROVED REPORT EXAM: Comprehensive 2D, Doppler, and color-flow Echocardiogram Patient Location: In-Patient Room/Bed: 230 Director Of Patient Care: Ashely Quevedo RDCS (AE) Indications: CHF Other Information Study Quality: Fair. Technically limited study due to body habitus, inability to position patient exa m done supine bedside. Conclusion Normal left ventricular wall thickness and chamber size. Estimated ejection fraction is 55%. Wall m otion is normal The right ventricle appears dilated Aortic valve is mildly sclerotic and trileaflet. There is no aortic stenosis or regurgitation Normal tricuspid valve with moderate regurgitation. Estimated right ventricular systolic pressure is 76 mm Hg, severe pulmonary hypertension Wall motion Left Ventricle The left ventricle is normal size. The left ventricular systolic function is normal. The left ventric ular ejection fraction is within the normal range. There is normal left ventricular wall thickness. L VEF is 55%. Right Ventricle Right ventricle is mildly dilated. Aortic Valve The Aortic valve is sclerotic. Aortic valve is trileaflet. Tricuspid Valve The tricuspid valve is normal in structure. There is no tricuspid valve stenosis. Moderate tricuspid regurgitation. Great Vessels The IVC collapses <50% with inspiration. 2D Dimensions IVSD d PLAX 1.05 cm F: 0.6-1.0 LV Vol A4C d MOD 73.2 mL LVPW d PLAX 1.03 cm F: 0.6 - 1.0 LV EF A4C MOD 56.1 % LVID d PLAX 4.16 cm F: 3.8 - 5.2 LVDs 2.95 cm F: 2.2 - 3.5 LV EF Teichholz 55.5 % LV Volume Index 33.84 mL/m2 F: 29 - 61 FS 28.50 % Tricuspid Valve TR Peak Grad 68.3 mmHg TR Vmax 4.13 m/s RVSP (TR) 76.4 mmHg
[2022-05-15] MEDS: Bumetanide 1 MG/4 ML VIAL 2 MG IVP (18:34)
[2022-05-15] MEDS: Normal Saline Flush 10 ML SYR IVP ×2 (18:34→20:43)
[2022-05-15] MEDS: Acetaminophen 500 MG TAB PO (18:34)
[2022-05-15] MEDS: Calcium 600mg/Vit D 200U TAB 1 TAB PO (20:43)
[2022-05-15] MEDS: Apixaban 5 MG TAB PO (20:43)
[2022-05-15] MEDS: Docusate Sodium 100 MG CAP PO (20:43)
[2022-05-16] VITALS (12 sets, daily range): BP systolic 131–154; BP diastolic 61–73; PULSE 71–86; RESP 10–24; TEMP 31–37.1; O2SAT 84–95
[2022-05-16] MEDS: Acetaminophen 500 MG TAB PO ×2 (06:16→12:40)
[2022-05-16 06:36] LABS: Abs Immature Grans 0.06 10^3/uL (0.0-0.06); Absolute Basophil Count 0.04 10^3/uL (0.0-0.2); Absolute Eosinophil Count 0.19 10^3/uL (0.0-0.7); Absolute Monocyte Count 0.53 10^3/uL (0.1-0.8); Absolute Neutrophil Count 5.28 10^3/uL (1.2-6.7); Basophils % 0.5; Eosinophils % 2.6; HCT 37.1 % (36.0-46.0); HGB 10.6 g/dL (11.2-15.7); Immature Grans % 0.8; Lymphocytes % 17.6; MCHC 28.6 % (32.0-36.0); MCV 105 fL (80-95); Monocytes % 7.2; Neutrophils % 71.3; Platelet Count 187 10^3/uL (130-400); RBC 3.53 10^6/uL (3.93-5.22); RDW 15.7 % (11.7-14.6); RDW-SD 60.1 fL
--- NOTE | 2022-05-16 06:39 | RESPIRATORY ---
Called for pt assessment. Pt placed on OxyMask at 5 liters FiO2 range of 36-69% Pt SpO2 93-95%. Pt is awake, alert, an oriented.
[2022-05-16 06:53] LABS: Anion Gap 2.6 mmol/L (3-11); BUN 39 mg/dL (7-18); CO2 36.4 mmol/L (21.0-32.0); CREATININE 2.3 mg/dL (0.55-1.02); Calcium 8.9 mg/dL (8.5-10.1); Chloride 102 mmol/L (98-107); Estimated GFR 21.62 (mL/min/1.73m2); Glucose 124 mg/dL (74-106); Potassium 4.3 mmol/L (3.5-5.1); Sodium 141 mmol/L (136-145)
[2022-05-16 06:56] LABS: Macrocytosis 2+
[2022-05-16] MEDS: Apixaban 5 MG TAB PO ×2 (09:25→20:03)
[2022-05-16] MEDS: Calcium 600mg/Vit D 200U TAB 1 TAB PO ×2 (09:25→20:03)
[2022-05-16] MEDS: amLODIPine 5 MG TAB PO (09:25)
[2022-05-16] MEDS: Pantoprazole 40 MG TABCR PO (09:26)
[2022-05-16] MEDS: Docusate Sodium 100 MG CAP PO ×2 (09:26→20:04)
[2022-05-16] MEDS: Bumetanide 1 MG/4 ML VIAL 2 MG IVP (09:26)
[2022-05-16] MEDS: Magnesium Oxide 400 MG TAB PO (09:26)
[2022-05-16] MEDS: Normal Saline Flush 10 ML SYR IVP ×3 (09:27→20:04)
--- NOTE | 2022-05-16 09:27 | INITIAL_ITS ---
- If Service Date Differs Date of service: 05/16/22 Time of Service: 09:27 Care Management Initial Assess REASON FOR HOSPITALIZATION:: CHF PAST MEDICAL HISTORY/PAST SURGICAL HISTORY:: All Active Problems (Updated 05/15/22 @ 14:14 by Myah Victor NP). Hypoxia (Acute). Trigger finger, right middle finger (Acute). Injection: 05/04/2022. Right carpal tunnel syndrome (Acute). CHF (congestive heart failure) (Acute 02/23/14). Preserved EF (10/2020 & 08/2021 ECHO). Obstructive sleep apnea (Chronic 02/23/14). Sleep Med Referral, 04/17/2019-->Very severe YARELY; CPAP ([facility]) with continuous O2, new Panda C-Pap 01/2021. Type II diabetes mellitus (Chronic). Hypertension (Chronic). Hyperlipidemia (Chronic). Atrial fibrillation (Chronic). Apixaban. Anemia (Chronic). Pulmonary hypertension (Chronic). CKD (chronic kidney disease) (Chronic). Dependence on supplemental oxygen (Chronic). YARELY + Pulm HTN. Palliative care status (Chronic). Full code status (Chronic). Chronic low back pain (Chronic 07/24/15). CT-lumbar spine 2019--. Severe multilevel degenerative changes in the lumbar spine resulting in neural foraminal and central spinal canal stenosis. Chronic anticoagulation (Chronic). AF--Apixaban. Risk for falls (Chronic). Sedentary lifestyle (Chronic). B12 deficiency (Chronic). Start B12 injections; elevated MCV. Chronic respiratory failure with hypercapnia (Chronic). Obesity hypoventilation syndrome (Chronic). Obesity + Severe YARELY + Chronic Hypercapnia. Dependent on walker for ambulation (Chronic). Hypomagnesemia (Acute ~07/2021). Mild mitral valve regurgitation (Acute ~08/2021). ECHO. Trace tricuspid valve regurgitation (Acute ~08/2021). ECHO. Medical History . Adult body mass index 50.0-59.9. Carpal tunnel syndrome, bilateral (12/17/16). Dietary counseling. reviewed sodium levels in her food, how to count mg, goal of 1500 mg daily due to CHF. Edentulous. Female hirsutism. Folate deficiency. Low 12/2018; resolved 05/2019 labs; discontinued 02/05/2020. h/o elbow fx. H/O fracture of nose. H/O rotator cuff tear. Heme + stool. [facility] Upper GI Endoscopy Peptic Duodenitis (pathology report); repeat hemoccults NEG 11/2019. HTN (hypertension). Insulin dependent diabetes mellitus. Iron deficiency. EGD 05/23/19 at [facility]; discont supp iron & vit c 02/05/2020; Hgb stable and iron constipating; she will obtain dietarily. Lipoma. Lipoma of arm. YARELY (obstructive sleep apnea). Peptic ulcer of duodenum. [facility] Path reports upper endoscopy; RX Carafate. Renal calculi. Non obstructive per CT. Restrictive lung disease (~03/2014). PFTs validated 04/04/2014-->see scanned docs. Sciatica of right side without back pain. RX Medrol. Spinal stenosis, lumbar. Surgical History . Biopsy, Temporal Artery (01/18/15). DR.C YOUNG. Colonoscopy - [facility] (08/14/16). History of carpal tunnel repair. Left- 1998. Right- 2017. History of shoulder surgery. Right shoulder repair - 2004. History of total abdominal hysterectomy and bilateral salpingo-oophorectomy (~02/1999). History of total bilateral knee replacement. History of total knee arthroplasty. bilateral PREVIOUS FUNCTIONAL STATUS/SOCIAL/FAMILY SUPPORTS:: Jane is and lives at home with her son Abdias in [place]. 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 Per Mohan, she is still independent with her ADL's as long as Abdias is in the room and can help her get into the tub. Abdias cooks and cleans is very supportive. Mohan uses a walker at home. She has home O2 and a Bipap machine through [employer]. Ruby Flores is her porter sample case in the community and she is followed by Palliative care. CURRENT FUNCTIONAL STATUS:: Jane is sitting up in her chair when CM met with her. She is awake and talkative, today. Per Mohan, she requires assistance at home from Abdias, but she is still relatively independent if he is close by. Abdias works nights at [employer] and is available during the day. ADVANCE DIRECTIVES:: On file; son Ricco Alamo as agent. Has patient been provided with info about the portal/API?: Yes Did the patient sign up for the portal?: No CODE STATUS:: Full Code INSURANCE COVERAGE / FINANCIAL ISSUES:: Medicare CURRENT HOME/COMMUNITY SERVICES/EQUIPMENT:: Followed by Palliative Care. [facility]. FWW, cane. Community CM is Ruby Flores PRIMARY CARE PHYSICIAN:: Laverne Sung POTENTIAL DISCHARGE NEEDS:: Evaluations for further needs, follow up appointments. New [facility] services. PATIENT/FAMILY EDUCATION NEEDS:: Discharge education, limitations, follow-up plan of care, Ask Me Three education and self-management discussion. TRANSPORTATION:: Via private vehicle by family. PLAN:: Mohan is being closely monitored and treated. Per RT, she is now using a hospital Bi-pap because her home mask was not adequate. Per provider, Dr. Boswell is planning to see Mohan tomorrow. Anticipate, Mohan will discharge home with New [facility] services when medically ready. CM will continue to support Mohan and further discharge planning considerations.
--- NOTE | 2022-05-16 12:29 | IN_ITS ---
PT Notes Visit Reasons: Congestive heart failure Physical Therapy Inpatient Initial Evaluation Date: 05/16/22 Referring Doctor: Myah Victor PT Orders: PT CONSULT: Non-urgent Precautions: Fall. Standard. Patient Profile/Admitting Diagnosis: Mohan is 76 yo female that presented to the ER on 05/15/22 for shortness of breath. She is on 4L oxygen at baseline and has bilateral leg edema. Being treated for congestive heart failure. PMHX: See EMR Social History/Home Situation: Lives with son in mobile home, has 4 WING with bilateral rails, on 4L O2 at baseline. Equipment Owned/DME: FWW, cane Subjective: Cleared by nursing to see patient and patient is agreeable to PT. Patient is reclining in chair at time of consult and connected to telemetry, marino catheter, and on high flow oxygen of 55% via NC. Objective: General Observation: Patient is very chatty, multiple complaints. Reports needs assist to get meal tray ready for lunch. Mental Status: A&O x3 Pain: Headache on right, pain rating not addressed ROM: Right Upper Extremity: Shoulder Flexion WFL. Shoulder abduction WFL. Elbow flexion WFL. Wrist flexion WFL. Opening and closing of hand WFL. Left Upper Extremity: Shoulder Flexion WFL. Shoulder abduction WFL. Elbow flexion WFL. Wrist flexion WFL. Opening and closing of hand WFL. Right Lower Extremity: Hip flexion WFL. Hip abduction WFL. Knee flexion WFL. Ankle dorsiflexion WFL. Ankle plantarflexion WFL. Left Lower Extremity: Hip flexion WFL. Hip abduction WFL. Knee flexion WFL. Ankle dorsiflexion WFL. Ankle plantarflexion WFL. Strength: Right Upper Extremity: Shoulder flexors 5/5. Shoulder abductors 5/5. Elbow flexors 5/5. Elbow extensors 5/5. Surface Supply Breathing Apparatus strong. Left Upper Extremity: Shoulder flexors 5/5. Shoulder abductors 5/5. Elbow flexors 5/5. Elbow extensors 5/5. Surface Supply Breathing Apparatus strong. Right Lower Extremity: Hip flexors 5/5. Knee flexors 5/5. Knee extensors 5/5. Ankle dorsiflexors 5/5. Ankle plantarflexors 5/5. Left Lower Extremity: Hip flexors 5/5. Knee flexors 5/5. Knee extensors 5/5. Ankle dorsiflexors 5/5. Ankle plantarflexors 5/5. Sensation: Intact as to pain and pressure on bilateral lower extremities. Bed Mobility/Transfers: Rolling: Not assessed, nursing reports 2 person Max A Supine to sit: Not assessed, nursing reports 2 person Max A Sit to supine: Not assessed, nursing reports 2 person Max A Sit to stand: CGA from chair Stand to sit: SBA Gait: Ambulated 10 ft in room with FWW, SBA. Very slow with mobility. Stairs: Not assessed Balance: Static Sitting: Normal Dynamic Sitting: Good Static Standing: Good Dynamic Standing: Poor Special Tests: Mobility Limitations Standardized Measure [facility] AM-PAC 6 clicks Basic Mobility Inpatient Short Form: Raw Score: 11 CMS Score: 72% Informed Consent/Education: Patient instructed in purpose of PT consult and plan of care. Assessment: Patient presents with clinical signs and symptoms consistent with current/admitting diagnoses that have resulted to mobility limitations, gait instability, generalized weakness, and impairment of motor control as demonstrated by the following impairment level findings: 1. Decreased strength to all major muscle groups 2. Impaired sitting/standing balance 3. Impaired activity tolerance 4. Limitation of joint range of motion in right shoulder Impairments are contributing to the following functional limitations: 1. Dependent bed mobility skills 2. Increased dependence with transfers 3. Inability to safely ambulate without assistive device and physical assistance 4. Increase completion time for mobility ADL performance 5. Increased fall risk 6. Inability to negotiate steps alone safely Patient is assessed as a Moderate complexity based on the following: History: 76 year old female with impairment level findings, functional limitations, and past medical history as indicated above Examination: Demonstrable impairment in strength, balance, and mobility level with underlying impairments and functional limitations as documented above Presentation: Evolving Decision Making: Moderate complexity Goals: Goals x1 week 1. Supine-Sit: 1 person min A 2. Sit-Supine: 1 person min A 3. Sit-Stand: independent 4. Stand-Sit: independent 5. Bed-Chair: independent 6. Chair-Bed: independent 7. Independent gait on level surface with use of least restrictive device for at least 100 feet 8. Good static and dynamic standing balance/tolerance 9. Independent stair negotiation while holding onto bilateral rails for at least 4 steps without report of pain nor dyspnea Plan of Care/Treatment Plan: 1-2x/day, 7 days/week x1 week. Plan of care has been reviewed with the WIRE DRAWING SETTER providing the service under Physical Therapy direction. Initiate Physical Therapy intervention for strengthening, bed mobility, transfers, gait, stairs, balance training, and use of assistive device. Discharge Plan DISCHARGE RECOMMENDATIONS: Home with HH services vs SNF for continued rehabilitation depending on mobility progress TREATMENT CODE/TIME: 11:35-12:03 (28 minutes), [id number] Thank you for the opportunity to participate in the care of this patient. Silvia Grace, PT, DPT, OCS [facility] [place], [place]
[2022-05-16 13:02] LABS: BE 9 mmol/L (-2-3); HCO3 34 mmol/L (22-26); pH 7.36 (7.35-7.45); pO2 42 mmHg (80-105); sO2 79 % (95-98); tCO2 32 mmol/L (23-27)
[2022-05-16 13:07] LABS: FIO2 60 %; Site Left Radial; pCO2 60 mmHg (35-45)
--- NOTE | 2022-05-16 15:18 | W.PM.PROGNOT ---
Date of Service Date of service: 05/16/22 Time of Service: 15:18 Assessment and Plan Assessment and plan (1) CHF (congestive heart failure): Status: Acute Assessment and plan: continue diuresing, will start bumex drip continue to follow I&O, daily weights last echo August 2021 shows LVEF is 50-55% The RVSP is 36.6 mmHg. will update on this visit if available. followed by Dr Boswell, will place consultation. Qualifiers: Heart failure chronicity: chronic Heart failure type: unspecified Qualified Code(s): I50.9 - Heart failure, unspecified (2) Obstructive sleep apnea treated with BiPAP: Status: Acute Assessment and plan: continue home therapy while hospitalized (3) Chronic anticoagulation: Status: Chronic Assessment and plan: on apixaban for chronic atrial fibrillation. 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 avoid nephrotoxic drugs. Qualifiers: Chronic kidney disease stage: stage 4 (severe) Qualified Code(s): N18.4 - Chronic kidney disease, stage 4 (severe) (6) Discharge planning issues: Status: Acute Assessment and plan: case management following discussed with Dr Hartmann Subjective Subjective Patient reports: no new complaints, no bowel movement, shortness of breath and afebrile Exam Const General: cooperative, comfortable and no acute distress Nutritional Appearance: overweight Orientation: alert, awake and oriented x3 HENMT Head: normal to inspection, normocephalic and atraumatic Mouth: oral mucosae normal Chest Chest: normal inspection of the chest Resp Effort & Inspection: normal respiratory effort Auscultation: diminished lung sounds (bases bilaterally) Cardio Rate: regular rate GI Inspection: normal to inspection Palpation: soft Auscultation: normal bowel sounds Neuro General: patient alert, patient awake and patient oriented x3 Extrem General: normal to inspection and edema Psych Mental Status: mental status grossly normal Speech and Movement: speech and movement normal Mood: congruent mood Affect: normal affect Objective Last Vital Signs Temp 37.1 C 05/16/22 08:40 Pulse 86 05/16/22 13:25 Resp 20 05/16/22 14:15 BP 150/61 H 05/16/22 08:40 Pulse Ox 91 L 05/16/22 14:15 Laboratory Results - last 24 hr 05/16/22 05/16/22 05/16/22 06:00 06:00 13:00 WBC 7.40 RBC 3.53 L Hgb 10.6 L Hct 37.1 MCV 105 H MCH 30.0 MCHC 28.6 L D RDW 15.7 H Plt Count 187 MPV 11.0 Immature Gran % 0.8 Neutrophils % 71.3 Lymphocytes % 17.6 Monocytes % 7.2 Eosinophils % 2.6 Basophils % 0.5 Nucleated RBC % 0.0 Absolute Neutrophils 5.28 Absolute Lymphocytes 1.30 Absolute Monocytes 0.53 Absolute Eosinophils 0.19 Absolute Basophils 0.04 Macrocytosis 2+ ABG Sample Site Left Radial ABG pH 7.36 ABG pCO2 60 H ABG pO2 42 L ABG HCO3 34 H ABG Total CO2 32 H ABG O2 Saturation 79 L ABG Base Excess 9 H Oxygen Liter Flow HHF SYSTEM FiO2 60 Sodium 141 Potassium 4.3 Chloride 102 Carbon Dioxide 36.4 H Anion Gap 2.6 L BUN 39 H Creatinine 2.3 H Est GFR (CKD-EPI 2020) 21.62 Glucose 124 H Calcium 8.9 Time Spent with Patient Time Spent with Patient: 25-34 minutes Time was spent: preparing to see the patient(eg.review tests), obtaining and/or reviewing separately otained hiistory, ordering medications,tests, procedures, referring, communicating with other health manager medicare marketing and indepentently interpreting results
[2022-05-16] MEDS: Insulin Aspart 300 UNITS/3 ML PEN SC (22:30)
[2022-05-16] MEDS: Insulin Glargine 300 UNITS/3 ML PEN 20 UNITS SC (22:32)
[2022-05-17] VITALS (8 sets, daily range): BP systolic 119–144; BP diastolic 70–79; PULSE 60–77; RESP 14–29; TEMP 31–37.1; O2SAT 86–97
[2022-05-17 05:50] LABS: Abs Immature Grans 0.01 10^3/uL (0.0-0.06); Absolute Basophil Count 0.04 10^3/uL (0.0-0.2); Absolute Eosinophil Count 0.22 10^3/uL (0.0-0.7); Absolute Lymphocyte Count 1.26 10^3/uL (1.2-3.4); Absolute Monocyte Count 0.62 10^3/uL (0.1-0.8); Absolute Neutrophil Count 5.64 10^3/uL (1.2-6.7); Basophils % 0.5; Eosinophils % 2.8; HCT 36.7 % (36.0-46.0); HGB 11.1 g/dL (11.2-15.7); Immature Grans % 0.1; Lymphocytes % 16.2; MCH 30.7 pg (27.0-33.0); MCHC 30.2 % (32.0-36.0); MCV 101 fL (80-95); MPV 10.9 fL (8.0-11.0); Neutrophils % 72.4; Platelet Count 188 10^3/uL (130-400); RBC 3.62 10^6/uL (3.93-5.22); RDW 15.3 % (11.7-14.6); RDW-SD 57.5 fL; WBC 7.79 10^3/uL (4.4-10.8)
[2022-05-17 06:01] LABS: Anion Gap 0.4 mmol/L (3-11); BUN 45 mg/dL (7-18); CO2 40.6 mmol/L (21.0-32.0); CREATININE 2.3 mg/dL (0.55-1.02); Calcium 9.2 mg/dL (8.5-10.1); Chloride 100 mmol/L (98-107); Estimated GFR 21.62 (mL/min/1.73m2); Glucose 128 mg/dL (74-106); Sodium 141 mmol/L (136-145)
[2022-05-17] MEDS: Pantoprazole 40 MG TABCR PO (07:45)
[2022-05-17] MEDS: Acetaminophen 500 MG TAB PO ×2 (08:27→16:05)
[2022-05-17] MEDS: Apixaban 5 MG TAB PO ×2 (08:28→21:33)
[2022-05-17] MEDS: Calcium 600mg/Vit D 200U TAB 1 TAB PO ×2 (08:28→21:33)
[2022-05-17] MEDS: Docusate Sodium 100 MG CAP PO ×2 (08:28→21:34)
[2022-05-17] MEDS: amLODIPine 5 MG TAB PO (08:28)
[2022-05-17] MEDS: Magnesium Oxide 400 MG TAB PO (08:30)
--- NOTE | 2022-05-17 08:58 | PT.INTREAT ---
Date of service: 05/17/22 Time of Service: 08:40 PT Notes Visit Reasons: Congestive heart failure Inpatient Physical Therapy Treatment Note [facility] Date: 05/17/2022 PRECAUTIONS: Activity as tolerated SUBJECTIVE: Jane reports that she does not feel well today. She states that she is willing to try to participate in PT, but does not feel that she will be able to do much today. She also reports I feel like I'm drowning in my own fluid. OBJECTIVE: Patient on Hi Alejandro nasal cannula PAIN: Patient c/o global pain with all activity, nursing aware BED MOBILITY/TRANSFERS Supine-sit: Attempted with Mod A and HOB at 40 degrees Sit-supine: Max A to get back to comfortable position GAIT: Unable ASSESSMENT: Patient was very limited today, complaining of global pain with all activity. PLAN: Progress gait tolerance, transfer training and global strengthening, as tolerated. TREATMENT CODE/TIME: 15 minutes; [id number] (08:40)
[2022-05-17 11:46] LABS: BE 14 mmol/L (-2-3); HCO3 41 mmol/L (22-26); pH 7.27 (7.35-7.45); pO2 58 mmHg (80-105); sO2 88 % (95-98); tCO2 39 mmol/L (23-27)
[2022-05-17 11:48] LABS: FIO2 60 %; FIO2L 45 L; Site Left Radial; pCO2 89 mmHg (35-45)
--- NOTE | 2022-05-17 11:49 | PGE_ITS ---
Date of Service Date of service: 05/17/22 Time of Service: 11:49 Assessment and Plan Assessment and plan (1) CHF (congestive heart failure): Status: Acute Assessment and plan: continue diuresing, will start bumex drip continue to follow I&O, daily weights last echo August 2021 shows LVEF is 50-55% The RVSP is 36.6 mmHg. will update on this visit if available. followed by Dr Boswell, will place consultation. Qualifiers: Heart failure type: unspecified Heart failure chronicity: chronic Qualified Code(s): I50.9 - Heart failure, unspecified (2) Obstructive sleep apnea treated with BiPAP: Status: Acute Assessment and plan: continue home therapy while hospitalized more lethargic today. will check ABG (3) Chronic anticoagulation: Status: Chronic Assessment and plan: on apixaban for chronic atrial fibrillation. (4) Type II diabetes mellitus: Status: Chronic Assessment and plan: continue diabetic diet with sliding scale coverage ac/hs continue home medications A1C 7.8 in Mar 2022 Qualifiers: Diabetes mellitus detention insulin use: with detention use Diabetes mellitus complication status: with kidney complications Diabetes mellitus complication detail: with chronic kidney disease Chronic kidney disease stage: stage 3 (moderate) Qualified Code(s): E11.22 - Type 2 diabetes mellitus with diabetic chronic kidney disease; N18.3 - Chronic kidney disease, stage 3 (moderate); Z79.4 - intermediate (current) use of insulin (5) CKD (chronic kidney disease): Status: Chronic Assessment and plan: creatinine stable and at baseline. avoid nephrotoxic drugs. Qualifiers: Chronic kidney disease stage: stage 4 (severe) Qualified Code(s): N18.4 - Chronic kidney disease, stage 4 (severe) (6) Discharge planning issues: Status: Acute Assessment and plan: case management following discussed with Dr Hartmann Subjective Subjective Patient reports: afebrile; denies shortness of breath Interval history since last seen: seems more sedated today, denies new c/o. resting in bed on evaluation, easily arousable and responds appropriately Exam Const General: cooperative, comfortable and no acute distress Nutritional Appearance: overweight Orientation: alert, awake and oriented x3 HENMT Head: normal to inspection, normocephalic and atraumatic Mouth: oral mucosae normal Chest Chest: normal inspection of the chest Resp Effort & Inspection: normal respiratory effort Auscultation: diminished lung sounds (bases bilaterally) Cardio Rate: regular rate GI Inspection: normal to inspection Palpation: soft Auscultation: normal bowel sounds Neuro General: patient alert, patient awake and patient oriented x3 Extrem General: normal to inspection and edema Psych Mental Status: mental status grossly normal Speech and Movement: speech and movement normal Mood: congruent mood Affect: normal affect Objective Last Vital Signs Temp 37.1 C 05/17/22 11:32 Pulse 70 05/17/22 11:32 Resp 20 05/17/22 11:32 BP 132/79 05/17/22 11:32 Pulse Ox 90 L 05/17/22 11:32 Laboratory Results - last 24 hr 05/16/22 05/17/22 05/17/22 13:00 05:26 05:26 WBC 7.79 RBC 3.62 L Hgb 11.1 L Hct 36.7 MCV 101 H D MCH 30.7 MCHC 30.2 L RDW 15.3 H Plt Count 188 MPV 10.9 Immature Gran % 0.1 Neutrophils % 72.4 Lymphocytes % 16.2 Monocytes % 8.0 Eosinophils % 2.8 Basophils % 0.5 Nucleated RBC % 0.0 Absolute Neutrophils 5.64 Absolute Lymphocytes 1.26 Absolute Monocytes 0.62 Absolute Eosinophils 0.22 Absolute Basophils 0.04 ABG Sample Site Left Radial ABG pH 7.36 ABG pCO2 60 H ABG pO2 42 L ABG HCO3 34 H ABG Total CO2 32 H ABG O2 Saturation 79 L ABG Base Excess 9 H Oxygen Liter Flow HHF SYSTEM FiO2 60 Sodium 141 Potassium 4.0 Chloride 100 Carbon Dioxide 40.6 H Anion Gap 0.4 L BUN 45 H Creatinine 2.3 H Est GFR (CKD-EPI 2020) 21.62 Glucose 128 H Calcium 9.2 05/17/22 11:45 WBC RBC Hgb Hct MCV MCH MCHC RDW Plt Count MPV Immature Gran % Neutrophils % Lymphocytes % Monocytes % Eosinophils % Basophils % Nucleated RBC % Absolute Neutrophils Absolute Lymphocytes Absolute Monocytes Absolute Eosinophils Absolute Basophils ABG Sample Site Left Radial ABG pH 7.27 L ABG pCO2 89 H* ABG pO2 58 L ABG HCO3 41 H ABG Total CO2 39 H ABG O2 Saturation 88 L ABG Base Excess 14 H Oxygen Liter Flow 45 FiO2 60 Sodium Potassium Chloride Carbon Dioxide Anion Gap BUN Creatinine Est GFR (CKD-EPI 2020) Glucose Calcium Time Spent with Patient Time Spent with Patient: 35-49 minutes Time was spent: preparing to see the patient(eg.review tests), obtaining and/or reviewing separately otained hiistory, ordering medications,tests, procedures, referring, communicating with other health childcare administrator, indepentently interpreting results and care coordination
[2022-05-17] MEDS: Simethicone 80 MG CHEW 160 MG PO (18:30)
[2022-05-17] MEDS: Insulin Glargine 300 UNITS/3 ML PEN 20 UNITS SC (22:31)
[2022-05-17] MEDS: Simethicone 80 MG CHEW PO (23:41)
[2022-05-18] VITALS (15 sets, daily range): BP systolic 125–133; BP diastolic 69–78; PULSE 79–96; RESP 1–25; TEMP 30–37.2; O2SAT 87–96
[2022-05-18 06:25] LABS: Abs Immature Grans 0.04 10^3/uL (0.0-0.06); Absolute Basophil Count 0.04 10^3/uL (0.0-0.2); Absolute Eosinophil Count 0.15 10^3/uL (0.0-0.7); Absolute Lymphocyte Count 0.98 10^3/uL (1.2-3.4); Absolute Monocyte Count 0.72 10^3/uL (0.1-0.8); Absolute Neutrophil Count 6.33 10^3/uL (1.2-6.7); Basophils % 0.5; Eosinophils % 1.8; HCT 36.3 % (36.0-46.0); HGB 11.2 g/dL (11.2-15.7); Immature Grans % 0.5; Lymphocytes % 11.9; MCH 30.9 pg (27.0-33.0); MCHC 30.9 % (32.0-36.0); MCV 100 fL (80-95); MPV 10.1 fL (8.0-11.0); Monocytes % 8.7; Neutrophils % 76.6; Platelet Count 178 10^3/uL (130-400); RBC 3.62 10^6/uL (3.93-5.22); RDW 15.5 % (11.7-14.6); RDW-SD 57.4 fL; WBC 8.26 10^3/uL (4.4-10.8)
[2022-05-18] MEDS: Pantoprazole 40 MG TABCR PO (07:15)
[2022-05-18 07:18] LABS: Anion Gap 4.8 mmol/L (3-11); BUN 45 mg/dL (7-18); CO2 41.2 mmol/L (21.0-32.0); CREATININE 2.2 mg/dL (0.55-1.02); Calcium 9.6 mg/dL (8.5-10.1); Chloride 96 mmol/L (98-107); Estimated GFR 22.81 (mL/min/1.73m2); Glucose 109 mg/dL (74-106); Potassium 3.9 mmol/L (3.5-5.1); Sodium 142 mmol/L (136-145)
[2022-05-18] MEDS: Simethicone 80 MG CHEW PO (07:20)
[2022-05-18] MEDS: Acetaminophen 500 MG TAB PO (07:21)
[2022-05-18] MEDS: amLODIPine 5 MG TAB PO (07:58)
[2022-05-18] MEDS: Calcium 600mg/Vit D 200U TAB 1 TAB PO ×2 (07:58→20:10)
[2022-05-18] MEDS: Docusate Sodium 100 MG CAP PO ×2 (07:58→20:10)
[2022-05-18] MEDS: Apixaban 5 MG TAB PO ×2 (07:58→20:10)
[2022-05-18] MEDS: Magnesium Oxide 400 MG TAB PO (07:58)
[2022-05-18 08:33] LABS: Lab Add On Test DONE
--- NOTE | 2022-05-18 08:58 | W.CARDCONSUL ---
Date of service: 05/18/22 Time of Service: 08:59 Assessment and Plan Assessment and plan (1) Atrial fibrillation: Status: Chronic Assessment and plan: Patient is appropriately anticoagulated for stroke prevention she has no symptoms referable to the dysrhythmia Qualifiers: Atrial fibrillation type: unspecified Qualified Code(s): I48.91 - Unspecified atrial fibrillation (2) Obesity hypoventilation syndrome: Status: Chronic Assessment and plan: Patient has obesity/hypoventilation, chronic respiratory failure with hypercapnia requiring BiPAP. She has right-sided heart failure and pulmonary hypertension related to this diagnosis. The only real treatment is respiratory support, and diuretics for edema. I have no specific other cardiac recommendations. The patient might benefit from pulmonary reassessment while in hospital History of Present Illness History of Present Illness Chief Complaint: Shortness of breath Narrative: This is a 76-year-old woman who has a history of obesity/hypoventilation, pulmonary hypertension obstructive sleep apnea requiring BiPAP and right-sided congestive heart failure. She was admitted to the hospital prior to the weekend with worsening edema and difficulty breathing. Her electrocardiogram showed atrial fibrillation, left axis, late transition, no acute changes. Her echocardiogram was updated. Left ventricular systolic function remains normal. Her estimated right ventricular systolic pressure was estimated to be 76 mmHg consistent with severe pulmonary hypertension. Patient has been treated with diuretics. According to the nursing staff, she required BiPAP all day yesterday. Review of Systems Cardiovascular Cardiovascular: Reports as per HPI, Denies chest pain, Reports edema, Reports leg edema, Reports dyspnea, Reports dyspnea on exertion and Reports orthopnea Respiratory Respiratory: Reports dyspnea and Reports dyspnea on exertion PFSH All Active Problems (Updated 05/17/22 @ 11:53 by Myah Victor NP) Discharge planning issues (Acute) Obstructive sleep apnea treated with BiPAP (Acute) Hypoxia (Acute) Trigger finger, right middle finger (Acute) Injection: 05/04/2022 Right carpal tunnel syndrome (Acute) CHF (congestive heart failure) (Acute 02/23/14) Preserved EF (10/2020 & 08/2021 ECHO) Obstructive sleep apnea (Chronic 02/23/14) Sleep Med Referral, 04/17/2019-->Very severe YARELY; CPAP ([facility]) with continuous O2, new Panda C-Pap 01/2021 Type II diabetes mellitus (Chronic) Hypertension (Chronic) Hyperlipidemia (Chronic) Atrial fibrillation (Chronic) Apixaban Anemia (Chronic) Pulmonary hypertension (Chronic) CKD (chronic kidney disease) (Chronic) Dependence on supplemental oxygen (Chronic) YARELY + Pulm HTN Palliative care status (Chronic) Full code status (Chronic) Chronic low back pain (Chronic 07/24/15) CT-lumbar spine 2019-- Severe multilevel degenerative changes in the lumbar spine resulting in neural foraminal and central spinal canal stenosis. Chronic anticoagulation (Chronic) AF--Apixaban Risk for falls (Chronic) Sedentary lifestyle (Chronic) B12 deficiency (Chronic) Start B12 injections; elevated MCV Chronic respiratory failure with hypercapnia (Chronic) Obesity hypoventilation syndrome (Chronic) Obesity + Severe YARELY + Chronic Hypercapnia Dependent on walker for ambulation (Chronic) Hypomagnesemia (Acute ~07/2021) Mild mitral valve regurgitation (Acute ~08/2021) ECHO Trace tricuspid valve regurgitation (Acute ~08/2021) ECHO Medical History Adult body mass index 50.0-59.9 Carpal tunnel syndrome, bilateral (12/17/16) Dietary counseling reviewed sodium levels in her food, how to count mg, goal of 1500 mg daily due to CHF 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 Folate deficiency Low 12/2018; resolved 05/2019 labs; discontinued 02/05/2020 h/o elbow fx H/O fracture of nose H/O rotator cuff tear Heme + stool [facility] Upper GI Endoscopy Peptic Duodenitis (pathology report); repeat hemoccults NEG 11/2019 HTN (hypertension) Insulin dependent diabetes mellitus Iron deficiency EGD 05/23/19 at [facility]; discont supp iron & vit c 02/05/2020; Hgb stable and iron constipating; she will obtain dietarily Lipoma Lipoma of arm YARELY (obstructive sleep apnea) Peptic ulcer of duodenum [facility] [place] Path reports upper endoscopy; RX Carafate Renal calculi Non obstructive per CT Restrictive lung disease (~03/2014) PFTs validated 04/04/2014-->see scanned docs Sciatica of right side without back pain RX Medrol Spinal stenosis, lumbar Surgical History Biopsy, Temporal Artery (01/18/15) DR.C YOUNG Colonoscopy - MAC (08/14/16) History of carpal tunnel repair Left- 1998 Right- 2018 History of shoulder surgery Right shoulder repair - 2004 History of total abdominal hysterectomy and bilateral salpingo-oophorectomy (~02/1999) History of total bilateral knee replacement History of total knee arthroplasty bilateral Family History Mother Heart disease Father Heart disease Lung cancer Brother Heart disease AAA (abdominal aortic aneurysm, ruptured) Brother Obesity Son No problems noted. Daughter Stillborn, abnormal Daughter No problems noted. 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 [employer] Pets and animals: Yes Pets and animals: cat(s) Sexually active: No Do you think of yourself as: straight/heterosexual Current gender identity: female What is your relationship status?: How often do you talk on the phone with friends or family?: once per week How often do you get together with friends or relatives?: once per week Panel score (0-1 are the most socially isolated patients): 0 What type of physical activity do you participate in: none and sedentary lifestyle Special jakob needs: No Agree to transfusion: Yes Seatbelt use: always In current or past relationships, have you been: made to feel afraid Do you feel safe at home: Yes Do you feel safe in your relationship?: Yes Additional Social history: per preop: Lives with son Abdias in house trailer. He works. He never left home. She is on home oxygen. Spends most of her day watching TV, sitting on couch. Has a cat. Never smoked. Has been 3 times. 2 husbands have , from one. Daughter lives in [place] with her 8 kids. Exam Const Other: Morbidly obese chronically ill-appearing poor color Neck Other: Neck is short unable to assess JVP carotid pulsations are palpable without bruits Resp Other: Decreased breath sounds, limited respiratory excursion, bibasilar crackles no wheeze Cardio Other: Irregularly irregular rate is controlled Skin Other: Warm and dry Extrem Other: 2+ edema Results Last Vital Signs Temp 37.2 C 05/18/22 07:12 Pulse 90 05/18/22 07:12 Resp 18 05/18/22 07:12 BP 128/78 05/18/22 07:12 Pulse Ox 94 05/18/22 07:12 Labs 05/18/22 06:16 05/18/22 06:16 Labs: Laboratory Results - last 24 hr 05/17/22 05/18/22 05/18/22 11:45 06:16 06:16 WBC 8.26 RBC 3.62 L Hgb 11.2 Hct 36.3 MCV 100 H MCH 30.9 MCHC 30.9 L RDW 15.5 H Plt Count 178 MPV 10.1 Immature Gran % 0.5 Neutrophils % 76.6 Lymphocytes % 11.9 Monocytes % 8.7 Eosinophils % 1.8 Basophils % 0.5 Nucleated RBC % 0.0 Absolute Neutrophils 6.33 Absolute Lymphocytes 0.98 L Absolute Monocytes 0.72 Absolute Eosinophils 0.15 Absolute Basophils 0.04 ABG Sample Site Left Radial ABG pH 7.27 L ABG pCO2 89 H* ABG pO2 58 L ABG HCO3 41 H ABG Total CO2 39 H ABG O2 Saturation 88 L ABG Base Excess 14 H Oxygen Liter Flow 45 FiO2 60 Sodium 142 Potassium 3.9 Chloride 96 L Carbon Dioxide 41.2 H Anion Gap 4.8 BUN 45 H Creatinine 2.2 H Est GFR (CKD-EPI 2020) 22.81 Glucose 109 H Calcium 9.6 Add-On Test Request 05/18/22 06:16 WBC RBC Hgb Hct MCV MCH MCHC RDW Plt Count MPV Immature Gran % Neutrophils % Lymphocytes % Monocytes % Eosinophils % Basophils % Nucleated RBC % Absolute Neutrophils Absolute Lymphocytes Absolute Monocytes Absolute Eosinophils Absolute Basophils ABG Sample Site ABG pH ABG pCO2 ABG pO2 ABG HCO3 ABG Total CO2 ABG O2 Saturation ABG Base Excess Oxygen Liter Flow FiO2 Sodium Potassium Chloride Carbon Dioxide Anion Gap BUN Creatinine Est GFR (CKD-EPI 2020) Glucose Calcium Add-On Test Request DONE
[2022-05-18 09:09] LABS: NT-proBNP 6492 pg/mL (<300)
[2022-05-18] MEDS: Polyethylene Glycol 3350 17 GM PACKET PO (09:15)
[2022-05-18 10:07] LABS: BE (Venous) > 15 mmol/L (-2-3); HCO3 (Venous) 44 mmol/L (23-28); O2 Sat (Venous) 67 %; TCO2 (Venous) 41 mmol/L (24-29); pH (Venous) 7.42 (7.31-7.41); pO2 (Venous) 35 mmHg
[2022-05-18 10:11] LABS: pCO2 (Venous) 68 mmHg (41-51)
--- NOTE | 2022-05-18 11:04 | PT.INNT ---
Date of service: 05/18/22 Time of Service: 11:04 PT Notes Visit Reasons: Congestive heart failure 05/18/2022 Patient refused morning PT session, stating her R foot hurts too much, and she believes she has gout. Per nursing, she transferred from bed to commode with Declan razo. Will attempt to resume PT services later today.
--- NOTE | 2022-05-18 11:22 | W.PULMCON ---
General Date Of Service Date of service: 05/18/22 Time of Service: 11:57 Reason for Consult: Hypercapnic and hypoxic respiratory failure Assessment and Plan Assessment and plan (1) Obstructive sleep apnea treated with BiPAP: Status: Acute (2) Respiratory failure with hypoxia and hypercapnia: Status: Acute (3) Pulmonary hypertension: Status: Chronic (4) Obesity hypoventilation syndrome: Status: Chronic Assessment and plan: This is a co morbid 76 yo with YARELY/OHS, CHF and respiratory failure. She is retaining significant CO2 despite BiPAP therapy, indicating a failure of this therapy. I think she should be on a Trilogy device at this point given recurrent hospitalizations for hypoxic and hypercapnic respiratory failure despite BiPAP therapy with a back up rate. In order to qualify her for this she will need spirometry to show restriction but this will have to occur when she is closer to her baseline from a respiratory perspective (off HFNC). I would recommend a D-dimer and further rule out of PE given her continued hypoxia, despite being anticoagulated. If the dimer is high I recommend a CTPE despite her elevated creatinine. There is not good evidence that contrast is the true cause of renal insufficiency in humans. I will also start her on daytime levalbuterol neb therapy to see if this helps. Hypoxic and hypercapnic respiratory failure - continue with supplemental O2 for sats >90% - continue BiPAP at night - settings: IMAX:25, Deangelo:4, PSmin:2, PSmax:8, 3LPM bleed and a back up rate of 10bpm - settings entered into BiPAP order - d-dimer ordered - if positive recommend CTPE despite Cr - levalbuterol neb QID YARELY/OHS - evidence of BiPAP failure - once closer to respiratory baseline (off HFNC) recommend inpatient spirometry - recommend Trilogy if she qualifies (FEV1/FVC >70% required) for OHS/restrictive lung process - will arrange outpatient fu in pulmonary History of Present Illness Narrative: This is a 76 yo admitted for CHF exacerbation with hypoxic and hypercapnic respiratory failure. She has YARELY/OHS and is on BiPAP nightly with settings: IMAX:25, Deangelo:4, PSmin:2, PSmax:8, 3LPM bleed and a back up rate of 10bpm. She does state she wears this at home nightly. In the hospital she has been less compliant with our machine. She has no diagnosed pulmonary disease and is a never smoker. She has never had asthma. She has no inhalational exposures. She retaining significant CO2 despite BiPAP use and clearning has failed this therapy, despite a back up rate. She complains of gout. Review of Systems All systems reviewed & are unremarkable except as noted in HPI and below PFSH All Active Problems (Updated 05/18/22 @ 11:47 by Jessie Ugalde MD) Respiratory failure with hypoxia and hypercapnia (Acute) Discharge planning issues (Acute) Obstructive sleep apnea treated with BiPAP (Acute) Hypoxia (Acute) Trigger finger, right middle finger (Acute) Injection: 05/04/2022 Right carpal tunnel syndrome (Acute) CHF (congestive heart failure) (Acute 02/23/14) Preserved EF (10/2020 & 08/2021 ECHO) Obstructive sleep apnea (Chronic 02/23/14) Sleep Med Referral, 04/17/2019-->Very severe YARELY; CPAP ([facility]) with continuous O2, new Panda C-Pap 01/2021 Type II diabetes mellitus (Chronic) Hypertension (Chronic) Hyperlipidemia (Chronic) Atrial fibrillation (Chronic) Apixaban Anemia (Chronic) Pulmonary hypertension (Chronic) CKD (chronic kidney disease) (Chronic) Dependence on supplemental oxygen (Chronic) YARELY + Pulm HTN Palliative care status (Chronic) Full code status (Chronic) Chronic low back pain (Chronic 07/24/15) CT-lumbar spine 2019-- Severe multilevel degenerative changes in the lumbar spine resulting in neural foraminal and central spinal canal stenosis. Chronic anticoagulation (Chronic) AF--Apixaban Risk for falls (Chronic) Sedentary lifestyle (Chronic) B12 deficiency (Chronic) Start B12 injections; elevated MCV Chronic respiratory failure with hypercapnia (Chronic) Obesity hypoventilation syndrome (Chronic) Obesity + Severe YARELY + Chronic Hypercapnia Dependent on walker for ambulation (Chronic) Hypomagnesemia (Acute ~07/2021) Mild mitral valve regurgitation (Acute ~08/2021) ECHO Trace tricuspid valve regurgitation (Acute ~08/2021) ECHO Medical History Adult body mass index 50.0-59.9 Carpal tunnel syndrome, bilateral (12/17/16) Dietary counseling reviewed sodium levels in her food, how to count mg, goal of 1500 mg daily due to CHF 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 Folate deficiency Low 12/2018; resolved 05/2019 labs; discontinued 02/05/2020 h/o elbow fx H/O fracture of nose H/O rotator cuff tear Heme + [place] [facility] [place] Peptic Duodenitis (pathology report); repeat hemoccults NEG 11/2019 HTN (hypertension) Insulin dependent diabetes mellitus Iron deficiency E[place] 05[place]23[place]19 [place] [facility]; discont supp iron & vit c 02/05/2020; Hgb stable and iron constipating; she will obtain dietarily Lipoma Lipoma of arm YARELY (obstructive sleep apnea) Peptic ulcer of duodenum [facility] Path reports upper endoscopy; RX Carafate Renal calculi Non obstructive per CT Restrictive lung disease (~03/2014) PFTs validated 04/04/2014-->see scanned docs Sciatica of right side without back pain RX Medrol Spinal stenosis, lumbar Surgical History Biopsy, Temporal Artery (01/18/15) DR.C YOUNG Colonoscopy - [facility] [place] (08/14/16) History of carpal tunnel repair Left- 1998 Right- 2017 History of shoulder surgery Right shoulder repair - 2004 History of total abdominal hysterectomy and bilateral salpingo-oophorectomy (~02/1999) History of total bilateral knee replacement History of total knee arthroplasty bilateral Family History Mother Heart disease Father Heart disease Lung cancer Brother Heart disease AAA (abdominal aortic aneurysm, ruptured) Brother Obesity Son No problems noted. Daughter Stillborn, abnormal Daughter No problems noted. 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 Pets and animals: Yes Pets and animals: cat(s) Sexually active: No Do you think of yourself as: straight/heterosexual Current gender identity: female What is your relationship status?: How often do you talk on the phone with friends or family?: once per week How often do you get together with friends or relatives?: once per week Panel score (0-1 are the most socially isolated patients): 0 What type of physical activity do you participate in: none and sedentary lifestyle Special jakob needs: No Agree to transfusion: Yes Seatbelt use: always In current or past relationships, have you been: made to feel afraid Do you feel safe at home: Yes Do you feel safe in your relationship?: Yes Additional Social history: per preop: Lives with son Abdias in house trailer. He works. He never left home. She is on home oxygen. Spends most of her day watching TV, sitting on couch. Has a cat. Never smoked. Has been 3 times. 2 husbands have , from one. Daughter lives in [place] with her 8 kids. Visit Medication and Allergies Active Medications Generic Name Dose Route Start Last Admin Trade Name Freq PRN Reason Stop Dose Admin Acetaminophen 500 mg 05/15/22 14:20 05/18/22 07:21 Acetaminophen 500 Mg Tab PO 500 mg Q6H PRN PRN Administration Amlodipine Besylate 5 mg 05/16/22 08:30 05/18/22 07:58 Amlodipine 5 Mg Tab PO 5 mg DAILY OLIVIA Administration Apixaban 5 mg 05/15/22 20:00 05/18/22 07:58 Apixaban 5 Mg Tab PO 5 mg BID LOIVIA Administration Calcium/Vitamin D 1 tab 05/15/22 20:00 05/18/22 07:58 Calcium 600mg/Vit D 200u Tab PO 1 tab BID OLIVIA Administration Dextrose 0 gm 05/15/22 14:18 Glucose Oral Gel 15 Gm/37.5 Gm Tube PO DIRECTED PRN Dextrose/Water 0 gm 05/15/22 14:18 Dextrose 50%-Water 25 Gm/50 Ml Syr IVP DIRECTED PRN Dimethicone/Zinc Oxide 0 gm 05/15/22 13:42 Yudy Protect Cream 142 Gm Tube TP PRN PRN Docusate Sodium 100 mg 05/15/22 20:00 05/18/22 07:58 Docusate Sodium 100 Mg Cap PO 100 mg BID OLIVIA Administration Fluticasone Propionate 0 gm 05/15/22 14:20 Fluticasone Nasal Lena 16 Gm Btl NS DAILY PRN PRN allergy symptoms Bumetanide 25 mg/ Device 100 mls @ 4 mls/hr 05/16/22 14:00 05/17/22 13:16 IV 1 mg/hr INFUSION [facility] 4 mls/hr Administration 1 MG/HR Insulin Aspart 0 units 05/15/22 17:00 05/18/22 07:36 Insulin Aspart 300 Units/3 Ml Pen SC Not Given 0800,1200,1700,2200 [facility] Protocol Insulin Glargine 20 units 05/16/22 22:00 05/17/22 22:31 Insulin Glargine 300 Units/3 Ml Pen SC 20 units HS OLIVIA Administration Magnesium Oxide 400 mg 05/16/22 08:30 05/18/22 07:58 Magnesium Oxide 400 Mg Tab PO 400 mg DAILY OLIVIA Administration Pantoprazole Sodium 40 mg 05/16/22 07:30 05/18/22 07:15 Pantoprazole 40 Mg Tabcr PO 40 mg DAILY@0730 OLIVIA Administration Polyethylene Glycol 17 gm 05/18/22 08:40 05/18/22 09:15 Polyethylene Glycol 3350 17 Gm Packet PO 17 gm DAILY OLIVIA Administration Simethicone 80 mg 05/17/22 17:59 05/18/22 07:20 Simethicone 80 Mg Chew PO 80 mg PC & HS PRN Administration Abdominal Pain Sodium Chloride 0 ml 05/15/22 18:05 05/16/22 20:04 Normal Saline Flush 10 Ml Syr IVP 10 ml PRN PRN Administration Allergies codeine Allergy (Severe, Verified 05/15/22 10:12) Swelling/Edema furosemide [From Lasix] Allergy (Severe, Verified 05/15/22 10:12) Swelling/Edema morphine Allergy (Severe, Verified 05/15/22 10:12) Swelling/Edema peanut Allergy (Severe, Verified 05/15/22 10:12) Nausea tree nut Allergy (Severe, Verified 05/15/22 10:12) acetaminophen [From Percocet] Allergy (Intermediate, Verified 05/15/22 10:12) ITCHY adhesive tape Allergy (Intermediate, Verified 05/15/22 10:12) Skin Rash oxycodone HCl [From Percocet] Allergy (Intermediate, Verified 05/15/22 10:12) ITCHY apricot Allergy (Unknown, Uncoded 05/15/22 10:12) Exam Narrative Exam Narrative: Gen: NAD, normal respiratory effort, obese HENT: PERRL, nasal turbinates normal without erythema or inflammation, moist oral mucosa, Mallampati 2, No LAD or JVD Chest: No respiratory distress, normal appearance of chest, clear to auscultation bilaterally, no crackles or wheezes, normal inspiratory effort Heart: regular rate and rhythym, no murmurs, rubs or gallops Abdomen: Non-distended, soft, non tender Extremities: No clubbing, edema, cyanosis, rashes Neuro: AAOx3 , non focal Psych: cooperative, appropriate mental affect Results Last Vital Signs Temp 37.2 C 05/18/22 07:12 Pulse 90 05/18/22 07:12 Resp 18 05/18/22 07:12 BP 128/78 05/18/22 07:12 Pulse Ox 94 05/18/22 07:12 Labs 05/18/22 06:16 05/18/22 06:16 Labs: Laboratory Results - last 24 hr 05/17/22 05/18/22 05/18/22 11:45 06:16 06:16 WBC 8.26 RBC 3.62 L Hgb 11.2 Hct 36.3 MCV 100 H MCH 30.9 MCHC 30.9 L RDW 15.5 H Plt Count 178 MPV 10.1 Immature Gran % 0.5 Neutrophils % 76.6 Lymphocytes % 11.9 Monocytes % 8.7 Eosinophils % 1.8 Basophils % 0.5 Nucleated RBC % 0.0 Absolute Neutrophils 6.33 Absolute Lymphocytes 0.98 L Absolute Monocytes 0.72 Absolute Eosinophils 0.15 Absolute Basophils 0.04 ABG Sample Site Left Radial ABG pH 7.27 L ABG pCO2 89 H* ABG pO2 58 L ABG HCO3 41 H ABG Total CO2 39 H ABG O2 Saturation 88 L ABG Base Excess 14 H VBG pH VBG pCO2 VBG pO2 VBG HCO3 VBG Total CO2 VBG O2 Saturation VBG Base Excess Oxygen Liter Flow 45 FiO2 60 Sodium 142 Potassium 3.9 Chloride 96 L Carbon Dioxide 41.2 H Anion Gap 4.8 BUN 45 H Creatinine 2.2 H Est GFR (CKD-EPI 2020) 22.81 Glucose 109 H Calcium 9.6 NT-Pro-B Natriuret Pep Add-On Test Request 05/18/22 05/18/22 05/18/22 06:16 06:16 10:02 WBC RBC Hgb Hct MCV MCH MCHC RDW Plt Count MPV Immature Gran % Neutrophils % Lymphocytes % Monocytes % Eosinophils % Basophils % Nucleated RBC % Absolute Neutrophils Absolute Lymphocytes Absolute Monocytes Absolute Eosinophils Absolute Basophils ABG Sample Site ABG pH ABG pCO2 ABG pO2 ABG HCO3 ABG Total CO2 ABG O2 Saturation ABG Base Excess VBG pH 7.42 H VBG pCO2 68 H* VBG pO2 35 VBG HCO3 44 H VBG Total CO2 41 H VBG O2 Saturation 67 VBG Base Excess > 15 H Oxygen Liter Flow FiO2 Sodium Potassium Chloride Carbon Dioxide Anion Gap BUN Creatinine Est GFR (CKD-EPI 2020) Glucose Calcium NT-Pro-B Natriuret Pep 6492 H Add-On Test Request DONE
--- NOTE | 2022-05-18 11:22 | RESPIRATORY ---
RT check out patient's own home Bipap unit, in great working condition and ready when patient able to use. Pt's own device is a DreamStation Auto-titrating Bipap max IPAP 16, min EPAP 10 and PS min/max 4 with 4L of Oxygen bled into the device at home. Patient uses a Medium DreamWear FFM size Medium currently with device. Patient had lost a lot of weigh and the mask is not fitting her as well, RT will encourage patient to contact DME concerning a mask refit. The DME for her oxygen and Bipap is believed to be [facility].
--- NOTE | 2022-05-18 11:31 | CMPROGNOTE_ITS ---
- If Service Date Differs Date of service: 05/18/22 Time of Service: 11:31 Care Management Progress Note S/O: Jane is sitting up in her recliner when CM met with her. She is awake and easily engages in conversation. CM discussed SNF for STR on discharge as recommended by PT. Mohan is clear that she does not want STR and will be going home when medically ready. Per pt, she has C moderate needs and may be able to get additional services. CM left a message her [facility] CM Makayla Flores. CM will continue to follow. A: 76 year old female admitted to [facility] on 05/15/22 for CHF P: Mohan is being closely monitored and treated. Per RT, she is now using a hospital Bi-pap because her home mask was not adequate. Per provider, Dr. Boswell is planning to see Mohan tomorrow. Anticipate, Mohan will discharge home with New [facility] services when medically ready. CM will continue to support Mohan and further discharge planning considerations.
[2022-05-18] MEDS: predniSONE 20 MG TAB 40 MG PO (11:57)
--- NOTE | 2022-05-18 11:58 | PGE_ITS ---
Date of Service Date of service: 05/18/22 Time of Service: 10:00 Assessment and Plan Assessment and plan (1) CHF (congestive heart failure): Status: Acute Assessment and plan: continue diuresing with bumex drip As kidneys allow continue to follow I&O, daily weights last echo August 2021 shows LVEF is 50-55% The RVSP is 36.6 mmHg. will update on this visit if available. followed by Dr Boswell, See consultation note. Qualifiers: Heart failure chronicity: chronic Heart failure type: unspecified Qualified Code(s): I50.9 - Heart failure, unspecified (2) Gout attack: Status: Acute Assessment and plan: Unable to use colchicine in setting of chronic kidney disease will start steroids Qualifiers: Gout etiology: unspecified cause Gout site: unspecified site Qualified Code(s): M10.9 - Gout, unspecified (3) Obstructive sleep apnea treated with BiPAP: Status: Acute Assessment and plan: continue home therapy while hospitalized more lethargic today Again. Repeat blood gas Awaiting pulmonary consultation (4) Chronic anticoagulation: Status: Chronic Assessment and plan: on apixaban for chronic atrial fibrillation. 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 avoid nephrotoxic drugs. Qualifiers: Chronic kidney disease stage: stage 4 (severe) Qualified Code(s): N18.4 - Chronic kidney disease, stage 4 (severe) (7) Discharge planning issues: Status: Acute Assessment and plan: case management following discussed with Dr Hartmann Subjective Subjective Patient reports: afebrile Interval history since last seen: Patient feels very fatigued reports shortness of breath with activity, malaise and weakness Continues to wear BiPAP intermittently and does desat off it Exam Const General: cooperative, comfortable and no acute distress Nutritional Appearance: overweight Orientation: alert, awake and oriented x3 HENMT Head: normal to inspection, normocephalic and atraumatic Mouth: oral mucosae normal Chest Chest: normal inspection of the chest Resp Effort & Inspection: normal respiratory effort Auscultation: diminished lung sounds (bases bilaterally) Cardio Rate: regular rate GI Inspection: normal to inspection Palpation: soft Auscultation: normal bowel sounds Neuro General: patient alert, patient awake and patient oriented x3 Extrem General: normal to inspection and edema Psych Mental Status: mental status grossly normal Speech and Movement: speech and movement normal Mood: congruent mood Affect: normal affect Objective Last Vital Signs Temp 37.2 C 05/18/22 07:12 Pulse 90 05/18/22 07:12 Resp 18 05/18/22 07:12 BP 128/78 05/18/22 07:12 Pulse Ox 94 05/18/22 07:12 Laboratory Results - last 24 hr 05/18/22 05/18/22 05/18/22 06:16 06:16 06:16 WBC 8.26 RBC 3.62 L Hgb 11.2 Hct 36.3 MCV 100 H MCH 30.9 MCHC 30.9 L RDW 15.5 H Plt Count 178 MPV 10.1 Immature Gran % 0.5 Neutrophils % 76.6 Lymphocytes % 11.9 Monocytes % 8.7 Eosinophils % 1.8 Basophils % 0.5 Nucleated RBC % 0.0 Absolute Neutrophils 6.33 Absolute Lymphocytes 0.98 L Absolute Monocytes 0.72 Absolute Eosinophils 0.15 Absolute Basophils 0.04 VBG pH VBG pCO2 VBG pO2 VBG HCO3 VBG Total CO2 VBG O2 Saturation VBG Base Excess Sodium 142 Potassium 3.9 Chloride 96 L Carbon Dioxide 41.2 H Anion Gap 4.8 BUN 45 H Creatinine 2.2 H Est GFR (CKD-EPI 2020) 22.81 Glucose 109 H Calcium 9.6 NT-Pro-B Natriuret Pep Add-On Test Request DONE 05/18/22 05/18/22 06:16 10:02 WBC RBC Hgb Hct MCV MCH MCHC RDW Plt Count MPV Immature Gran % Neutrophils % Lymphocytes % Monocytes % Eosinophils % Basophils % Nucleated RBC % Absolute Neutrophils Absolute Lymphocytes Absolute Monocytes Absolute Eosinophils Absolute Basophils VBG pH 7.42 H VBG pCO2 68 H* VBG pO2 35 VBG HCO3 44 H VBG Total CO2 41 H VBG O2 Saturation 67 VBG Base Excess > 15 H Sodium Potassium Chloride Carbon Dioxide Anion Gap BUN Creatinine Est GFR (CKD-EPI 2020) Glucose Calcium NT-Pro-B Natriuret Pep 6492 H Add-On Test Request Time Spent with Patient Time Spent with Patient: 25-34 minutes Time was spent: preparing to see the patient(eg.review tests), obtaining and/or reviewing separately otained hiistory, ordering medications,tests, procedures, referring, communicating with other health administrator health care facility and indepentently interpreting results
[2022-05-18] MEDS: Levalbuterol 1.25 MG/3 ML UPD VIAL UPD ×3 (12:34→19:36)
--- NOTE | 2022-05-18 12:47 | W.INDIABCONS ---
Date of service: 05/18/22 Time of Service: 12:47 Diabetes Inpatient Consult Reason for Visit: dm2 DESCRIPTION/ASSESSMENT: Unable to meet with Mohan today. Mohan was admitted with CHF, DM2 and CKD. BMI indicates morbid obesity. Most recent A1C: 7.8% at target. Home DM meds: 32 u glargine, aspart at meals. At this point no need for diet education as A1C at goal. Will be available prn. Time Spent in Nutritional Counseling and Treatment: 0
--- NOTE | 2022-05-18 13:21 | PTTR_ITS ---
Date of service: 05/18/22 Time of Service: 12:50 PT Notes Visit Reasons: Congestive heart failure Inpatient Physical Therapy Treatment Note [facility] Date: 05/18/2022 PRECAUTIONS: Fall, Activity as tolerated SUBJECTIVE: Flo reports that she continues to have significant pain in B feet due to what she believes is gout. She is agreeable to attempting to stand. OBJECTIVE: PAIN: Patient c/o severe pain in B feet to touch and with weight bearing BED MOBILITY/TRANSFERS Sit-stand: Max A x3 with STEDY (unable to complete full transfer) Stand-sit: Max A x3 with STEDY (unable to complete full transfer) TOILETING: Patient was incontinent in chair, requiring Max A x3, in semi- standing with Max A x3 and STEDY. GAIT: Unable ASSESSMENT: Patient tolerated session with complaint of B foot pain with all activity and to touch. She demonstrates global weakness and deconditioning. PLAN: Continue with global strengthening and general conditioning for improved mobility and activity tolerance, as tolerated. TREATMENT CODE/TIME: 32 minutes; [id number] x2 (12:50)
[2022-05-18 17:00] LABS: D-Dimer 649 ng/mlFEU (<500)
[2022-05-18] MEDS: Insulin Aspart 300 UNITS/3 ML PEN SC ×2 (17:25→21:44)
[2022-05-18] MEDS: Insulin Glargine 300 UNITS/3 ML PEN 20 UNITS SC (21:41)
[2022-05-19] VITALS (23 sets, daily range): BP systolic 111–126; BP diastolic 67–72; PULSE 70–92; RESP 2–24; TEMP 31–37.3; O2SAT 88–96
[2022-05-19 06:06] LABS: Abs Immature Grans 0.03 10^3/uL (0.0-0.06); Absolute Basophil Count 0.01 10^3/uL (0.0-0.2); Absolute Eosinophil Count 0.03 10^3/uL (0.0-0.7); Absolute Monocyte Count 0.89 10^3/uL (0.1-0.8); Basophils % 0.1; Eosinophils % 0.3; HCT 33.7 % (36.0-46.0); HGB 10.6 g/dL (11.2-15.7); Immature Grans % 0.3; Lymphocytes % 9.9; MCHC 31.5 % (32.0-36.0); MCV 99 fL (80-95); MPV 10.5 fL (8.0-11.0); Monocytes % 9.8; Neutrophils % 79.6; Platelet Count 178 10^3/uL (130-400); RBC 3.42 10^6/uL (3.93-5.22); RDW 15.6 % (11.7-14.6); RDW-SD 55.8 fL; WBC 9.06 10^3/uL (4.4-10.8)
[2022-05-19 06:16] LABS: Anion Gap 2.1 mmol/L (3-11); BUN 53 mg/dL (7-18); CO2 43.9 mmol/L (21.0-32.0); CREATININE 2.3 mg/dL (0.55-1.02); Calcium 9.1 mg/dL (8.5-10.1); Chloride 94 mmol/L (98-107); Estimated GFR 21.62 (mL/min/1.73m2); Glucose 146 mg/dL (74-106); Sodium 140 mmol/L (136-145)
--- NOTE | 2022-05-19 07:15 | W.PULMPROG ---
Assessment and Plan Assessment and plan (1) Obstructive sleep apnea treated with BiPAP: Status: Acute (2) Respiratory failure with hypoxia and hypercapnia: Status: Acute (3) Pulmonary hypertension: Status: Chronic (4) Obesity hypoventilation syndrome: Status: Chronic Assessment and plan: This is a co morbid 76 yo with YARELY/OHS, CHF and respiratory failure. She is retaining significant CO2 despite BiPAP therapy, indicating a failure of this therapy. I think she should be on an AVAPS device (Trilogy, SEN, etc) at this point given recurrent hospitalizations for hypoxic and hypercapnic respiratory failure despite BiPAP therapy with a back up rate. In order to qualify her for this she will need spirometry to show restriction but this will have to occur when she is closer to her baseline from a respiratory perspective - off HFNC consistently and back on her home BiPAP unit. Hypoxic and hypercapnic respiratory failure - continue with supplemental O2 for sats >90% - continue home BiPAP at night - settings: IMAX:16, Deangelo:10, PSmin:4, PSmax:4, 4LPM bleed and a back up rate of 10bpm - settings entered into BiPAP order - age adjusted d-dimer low risk for VTE - levalbuterol neb QID YARELY/OHS - evidence of BiPAP failure - once closer to respiratory baseline (off HFNC and tolerating home BiPAP unit) recommend inpatient spirometry - recommend Trilogy if she qualifies (FEV1/FVC >70% required) for OHS/restrictive lung process - will arrange outpatient fu in pulmonary General Date Of Service Date of service: 05/19/22 Time of Service: 07:16 Reason for Consult: Hypercapnic and hypoxic respiratory failure Subjective 24 Hour Events: D-dimer returned at 649 - age adjusted dimer cut off is 750, so VTE unlikely She was unable to tolerate her home unit yet and had to be placed back on the maria [facility] Note Note: She is doing ok she states. She continues to diurese and is on a Bumex drip to help with this. She complained about having to be put on maria guadalupe. Exam Narrative Exam Narrative: Gen:?NAD, normal respiratory effort, obese HENT:?PERRL Chest:?No respiratory distress, normal appearance of chest, clear to auscultation bilaterally, diminished breath sounds in bed Heart:?regular rate and rhythym, no murmurs, rubs or gallops Abdomen:?Non-distended, soft, non tender Extremities:?No clubbing, edema, cyanosis, rashes Neuro:?AAOx3 , non focal Psych:?cooperative, appropriate mental affect Objective Last Vital Signs Temp 37.1 C 05/18/22 22:56 Pulse 72 05/19/22 04:56 Resp 10 L 05/19/22 04:56 BP 125/69 05/18/22 22:56 Pulse Ox 96 05/19/22 04:56 Laboratory Results - last 24 hr 05/18/22 05/18/22 05/18/22 06:16 06:16 06:16 WBC RBC Hgb Hct MCV MCH MCHC RDW Plt Count MPV Immature Gran % Neutrophils % Lymphocytes % Monocytes % Eosinophils % Basophils % Nucleated RBC % Absolute Neutrophils Absolute Lymphocytes Absolute Monocytes Absolute Eosinophils Absolute Basophils D-Dimer VBG pH VBG pCO2 VBG pO2 VBG HCO3 VBG Total CO2 VBG O2 Saturation VBG Base Excess Sodium 142 Potassium 3.9 Chloride 96 L Carbon Dioxide 41.2 H Anion Gap 4.8 BUN 45 H Creatinine 2.2 H Est GFR (CKD-EPI 2020) 22.81 Glucose 109 H Calcium 9.6 NT-Pro-B Natriuret Pep 6492 H Add-On Test Request DONE 05/18/22 05/18/22 05/19/22 10:02 16:10 05:52 WBC RBC Hgb Hct MCV MCH MCHC RDW Plt Count MPV Immature Gran % Neutrophils % Lymphocytes % Monocytes % Eosinophils % Basophils % Nucleated RBC % Absolute Neutrophils Absolute Lymphocytes Absolute Monocytes Absolute Eosinophils Absolute Basophils D-Dimer 649 H VBG pH 7.42 H VBG pCO2 68 H* VBG pO2 35 VBG HCO3 44 H VBG Total CO2 41 H VBG O2 Saturation 67 VBG Base Excess > 15 H Sodium 140 Potassium 4.0 Chloride 94 L Carbon Dioxide 43.9 H Anion Gap 2.1 L BUN 53 H Creatinine 2.3 H Est GFR (CKD-EPI 2020) 21.62 Glucose 146 H Calcium 9.1 NT-Pro-B Natriuret Pep Add-On Test Request 05/19/22 05:52 WBC 9.06 RBC 3.42 L Hgb 10.6 L Hct 33.7 L MCV 99 H MCH 31.0 MCHC 31.5 L RDW 15.6 H Plt Count 178 MPV 10.5 Immature Gran % 0.3 Neutrophils % 79.6 Lymphocytes % 9.9 Monocytes % 9.8 Eosinophils % 0.3 Basophils % 0.1 Nucleated RBC % 0.0 Absolute Neutrophils 7.20 H Absolute Lymphocytes 0.90 L Absolute Monocytes 0.89 H Absolute Eosinophils 0.03 Absolute Basophils 0.01 D-Dimer VBG pH VBG pCO2 VBG pO2 VBG HCO3 VBG Total CO2 VBG O2 Saturation VBG Base Excess Sodium Potassium Chloride Carbon Dioxide Anion Gap BUN Creatinine Est GFR (CKD-EPI 2020) Glucose Calcium NT-Pro-B Natriuret Pep Add-On Test Request Results Medications Medications: Active Medications Generic Name Dose Route Start Last Admin Trade Name Freq PRN Reason Stop Dose Admin Acetaminophen 500 mg 05/15/22 14:20 05/18/22 07:21 Acetaminophen 500 Mg Tab PO 500 mg Q6H PRN PRN Administration Amlodipine Besylate 5 mg 05/16/22 08:30 05/18/22 07:58 Amlodipine 5 Mg Tab PO 5 mg DAILY OLIVIA Administration Apixaban 5 mg 05/15/22 20:00 05/18/22 20:10 Apixaban 5 Mg Tab PO 5 mg BID OLIVIA Administration Calcium/Vitamin D 1 tab 05/15/22 20:00 05/18/22 20:10 Calcium 600mg/Vit D 200u Tab PO 1 tab BID OLIVIA Administration Dextrose 0 gm 05/15/22 14:18 Glucose Oral Gel 15 Gm/37.5 Gm Tube PO DIRECTED PRN Dextrose/Water 0 gm 05/15/22 14:18 Dextrose 50%-Water 25 Gm/50 Ml Syr IVP DIRECTED PRN Dimethicone/Zinc Oxide 0 gm 05/15/22 13:42 Yudy Protect Cream 142 Gm Tube TP PRN PRN Docusate Sodium 100 mg 05/15/22 20:00 05/18/22 20:10 Docusate Sodium 100 Mg Cap PO 100 mg BID OLIVIA Administration Fluticasone Propionate 0 gm 05/15/22 14:20 Fluticasone Nasal [place] 16 Gm Btl NS DAILY PRN PRN allergy symptoms Bumetanide 25 mg/ Device 100 mls @ 4 mls/hr 05/16/22 14:00 05/18/22 18:09 IV 1 mg/hr INFUSION OLIVIA 4 mls/hr Administration 1 MG/HR Insulin Aspart 0 units 05/15/22 17:00 05/18/22 21:44 Insulin Aspart 300 Units/3 Ml Pen SC 12 units 0800,1200,1700,2200 OLIVIA Administration Protocol Insulin Glargine 20 units 05/16/22 22:00 05/18/22 21:41 Insulin Glargine 300 Units/3 Ml Pen SC 20 units HS OLIVIA Administration Levalbuterol HCl 1.25 mg 05/18/22 12:00 05/18/22 19:36 Levalbuterol 1.25 Mg/3 Ml Upd Vial UPD 1.25 mg QID OLIVIA Administration Magnesium Oxide 400 mg 05/16/22 08:30 05/18/22 07:58 Magnesium Oxide 400 Mg Tab PO 400 mg DAILY OLIVIA Administration Pantoprazole Sodium 40 mg 05/16/22 07:30 05/18/22 07:15 Pantoprazole 40 Mg Tabcr PO 40 mg DAILY@0730 OLIVIA Administration Polyethylene Glycol 17 gm 05/18/22 08:40 05/18/22 09:15 Polyethylene Glycol 3350 17 Gm Packet PO 17 gm DAILY OLIVIA Administration Prednisone 40 mg 05/18/22 12:00 05/18/22 11:57 Prednisone 20 Mg Tab PO 40 mg DAILY OLIVIA Administration Simethicone 80 mg 05/17/22 17:59 05/18/22 07:20 Simethicone 80 Mg Chew PO 80 mg PC & HS PRN Administration Abdominal Pain Sodium Chloride 0 ml 05/15/22 18:05 05/16/22 20:04 Normal Saline Flush 10 Ml Syr IVP 10 ml PRN PRN Administration Allergies codeine Allergy (Severe, Verified 05/15/22 10:12) Swelling/Edema furosemide [From Lasix] Allergy (Severe, Verified 05/15/22 10:12) Swelling/Edema morphine Allergy (Severe, Verified 05/15/22 10:12) Swelling/Edema peanut Allergy (Severe, Verified 05/15/22 10:12) Nausea tree nut Allergy (Severe, Verified 05/15/22 10:12) acetaminophen [From Percocet] Allergy (Intermediate, Verified 05/15/22 10:12) ITCHY adhesive tape Allergy (Intermediate, Verified 05/15/22 10:12) Skin Rash oxycodone HCl [From Percocet] Allergy (Intermediate, Verified 05/15/22 10:12) ITCHY apricot Allergy (Unknown, Uncoded 05/15/22 10:12) Labs 05/19/22 05:52 05/19/22 05:52 Labs: Laboratory Tests Range/Units 05/15/22 05/15/22 05/15/22 09:52 09:52 10:17 WBC (4.4-10.8) 10^3/uL 6.82 RBC (3.93-5.22) 10^6/uL 3.64 L Hgb (11.2-15.7) g/dL 12.0 Hct (36.0-46.0) % 37.9 MCV (80-95) fL 104 H MCH (27.0-33.0) pg 33.0 MCHC (32.0-36.0) % 31.7 L RDW (11.7-14.6) % 15.9 H Plt Count (130-400) 10^3/uL 209 MPV (8.0-11.0) fL 10.3 Immature Gran % 0.3 Neutrophils % 69.5 Lymphocytes % 20.8 Monocytes % 5.9 Eosinophils % 2.6 Basophils % 0.9 Nucleated RBC % (0.0-0.3) % 0.0 Absolute Neutrophils (1.2-6.7) 10^3/uL 4.74 Absolute Lymphocytes (1.2-3.4) 10^3/uL 1.42 Absolute Monocytes (0.1-0.8) 10^3/uL 0.40 Absolute Eosinophils (0.0-0.7) 10^3/uL 0.18 Absolute Basophils (0.0-0.2) 10^3/uL 0.06 Macrocytosis D-Dimer (<500) ng/mlFEU ABG Sample Site ABG pH (7.35-7.45) ABG pCO2 (35-45) mmHg ABG pO2 (80-105) mmHg ABG HCO3 (22-26) mmol/L ABG Total CO2 (23-27) mmol/L ABG O2 Saturation (95-98) % ABG Base Excess (-2-3) mmol/L VBG pH (7.31-7.41) VBG pCO2 (41-51) mmHg VBG pO2 mmHg VBG HCO3 (23-28) mmol/L VBG Total CO2 (24-29) mmol/L VBG O2 Saturation % VBG Base Excess (-2-3) mmol/L Oxygen Liter Flow L FiO2 % Sodium (136-145) mmol/L 141 Potassium (3.5-5.1) mmol/L 4.2 Chloride (98-107) mmol/L 102 Carbon Dioxide (21.0-32.0) mmol/L 36.9 H Anion Gap (3-11) mmol/L 2.1 L BUN (7-18) mg/dL 41 H Creatinine (0.55-1.02) mg/dL 2.3 H Est GFR (CKD-EPI 2020) (mL/min/1.73m2) 21.62 Glucose (74-106) mg/dL 164 H Calcium (8.5-10.1) mg/dL 8.6 Total Bilirubin (0.2-1.0) mg/dL 0.5 AST (15-37) U/L 11 L ALT (14-59) U/L 12 L Alkaline Phosphatase (46-116) U/L 73 Troponin I (<or=60) ng/L < 50 NT-Pro-B Natriuret Pep (<300) pg/mL 6833 H Total Protein (6.4-8.2) g/dL 7.0 Albumin (3.4-5.0) g/dL 3.3 L COVID-19 Source Nasopharynx SARS-CoV-2 (PCR) (Negative) Negative Influenza Type A (PCR) (Negative) Negative Influenza Type B (PCR) (Negative) Negative RSV (PCR) (Negative) Negative Add-On Test Request Range/Units 05/15/22 05/16/22 05/16/22 13:02 06:00 06:00 WBC (4.4-10.8) 10^3/uL 7.40 RBC (3.93-5.22) 10^6/uL 3.53 L Hgb (11.2-15.7) g/dL 10.6 L Hct (36.0-46.0) % 37.1 MCV (80-95) fL 105 H MCH (27.0-33.0) pg 30.0 MCHC (32.0-36.0) % 28.6 L D RDW (11.7-14.6) % 15.7 H Plt Count (130-400) 10^3/uL 187 MPV (8.0-11.0) fL 11.0 Immature Gran % 0.8 Neutrophils % 71.3 Lymphocytes % 17.6 Monocytes % 7.2 Eosinophils % 2.6 Basophils % 0.5 Nucleated RBC % (0.0-0.3) % 0.0 Absolute Neutrophils (1.2-6.7) 10^3/uL 5.28 Absolute Lymphocytes (1.2-3.4) 10^3/uL 1.30 Absolute Monocytes (0.1-0.8) 10^3/uL 0.53 Absolute Eosinophils (0.0-0.7) 10^3/uL 0.19 Absolute Basophils (0.0-0.2) 10^3/uL 0.04 Macrocytosis 2+ D-Dimer (<500) ng/mlFEU ABG Sample Site ABG pH (7.35-7.45) ABG pCO2 (35-45) mmHg ABG pO2 (80-105) mmHg ABG HCO3 (22-26) mmol/L ABG Total CO2 (23-27) mmol/L ABG O2 Saturation (95-98) % ABG Base Excess (-2-3) mmol/L VBG pH (7.31-7.41) VBG pCO2 (41-51) mmHg VBG pO2 mmHg VBG HCO3 (23-28) mmol/L VBG Total CO2 (24-29) mmol/L VBG O2 Saturation % VBG Base Excess (-2-3) mmol/L Oxygen Liter Flow L FiO2 % Sodium (136-145) mmol/L 141 Potassium (3.5-5.1) mmol/L 4.3 Chloride (98-107) mmol/L 102 Carbon Dioxide (21.0-32.0) mmol/L 36.4 H Anion Gap (3-11) mmol/L 2.6 L BUN (7-18) mg/dL 39 H Creatinine (0.55-1.02) mg/dL 2.3 H Est GFR (CKD-EPI 2020) (mL/min/1.73m2) 21.62 Glucose (74-106) mg/dL 124 H Calcium (8.5-10.1) mg/dL 8.9 Total Bilirubin (0.2-1.0) mg/dL AST (15-37) U/L ALT (14-59) U/L Alkaline Phosphatase (46-116) U/L Troponin I (<or=60) ng/L < 50 NT-Pro-B Natriuret Pep (<300) pg/mL Total Protein (6.4-8.2) g/dL Albumin (3.4-5.0) g/dL COVID-19 Source SARS-CoV-2 (PCR) (Negative) Influenza Type A (PCR) (Negative) Influenza Type B (PCR) (Negative) RSV (PCR) (Negative) Add-On Test Request Range/Units 05/16/22 05/17/22 05/17/22 13:00 05:26 05:26 WBC (4.4-10.8) 10^3/uL 7.79 RBC (3.93-5.22) 10^6/uL 3.62 L Hgb (11.2-15.7) g/dL 11.1 L Hct (36.0-46.0) % 36.7 MCV (80-95) fL 101 H D MCH (27.0-33.0) pg 30.7 MCHC (32.0-36.0) % 30.2 L RDW (11.7-14.6) % 15.3 H Plt Count (130-400) 10^3/uL 188 MPV (8.0-11.0) fL 10.9 Immature Gran % 0.1 Neutrophils % 72.4 Lymphocytes % 16.2 Monocytes % 8.0 Eosinophils % 2.8 Basophils % 0.5 Nucleated RBC % (0.0-0.3) % 0.0 Absolute Neutrophils (1.2-6.7) 10^3/uL 5.64 Absolute Lymphocytes (1.2-3.4) 10^3/uL 1.26 Absolute Monocytes (0.1-0.8) 10^3/uL 0.62 Absolute Eosinophils (0.0-0.7) 10^3/uL 0.22 Absolute Basophils (0.0-0.2) 10^3/uL 0.04 Macrocytosis D-Dimer (<500) ng/mlFEU ABG Sample Site Left Radial ABG pH (7.35-7.45) 7.36 ABG pCO2 (35-45) mmHg 60 H ABG pO2 (80-105) mmHg 42 L ABG HCO3 (22-26) mmol/L 34 H ABG Total CO2 (23-27) mmol/L 32 H ABG O2 Saturation (95-98) % 79 L ABG Base Excess (-2-3) mmol/L 9 H VBG pH (7.31-7.41) VBG pCO2 (41-51) mmHg VBG pO2 mmHg VBG HCO3 (23-28) mmol/L VBG Total CO2 (24-29) mmol/L VBG O2 Saturation % VBG Base Excess (-2-3) mmol/L Oxygen Liter Flow L HHF SYSTEM FiO2 % 60 Sodium (136-145) mmol/L 141 Potassium (3.5-5.1) mmol/L 4.0 Chloride (98-107) mmol/L 100 Carbon Dioxide (21.0-32.0) mmol/L 40.6 H Anion Gap (3-11) mmol/L 0.4 L BUN (7-18) mg/dL 45 H Creatinine (0.55-1.02) mg/dL 2.3 H Est GFR (CKD-EPI 2020) (mL/min/1.73m2) 21.62 Glucose (74-106) mg/dL 128 H Calcium (8.5-10.1) mg/dL 9.2 Total Bilirubin (0.2-1.0) mg/dL AST (15-37) U/L ALT (14-59) U/L Alkaline Phosphatase (46-116) U/L Troponin I (<or=60) ng/L NT-Pro-B Natriuret Pep (<300) pg/mL Total Protein (6.4-8.2) g/dL Albumin (3.4-5.0) g/dL COVID-19 Source SARS-CoV-2 (PCR) (Negative) Influenza Type A (PCR) (Negative) Influenza Type B (PCR) (Negative) RSV (PCR) (Negative) Add-On Test Request Range/Units 05/17/22 05/18/22 05/18/22 11:45 06:16 06:16 WBC (4.4-10.8) 10^3/uL 8.26 RBC (3.93-5.22) 10^6/uL 3.62 L Hgb (11.2-15.7) g/dL 11.2 Hct (36.0-46.0) % 36.3 MCV (80-95) fL 100 H MCH (27.0-33.0) pg 30.9 MCHC (32.0-36.0) % 30.9 L RDW (11.7-14.6) % 15.5 H Plt Count (130-400) 10^3/uL 178 MPV (8.0-11.0) fL 10.1 Immature Gran % 0.5 Neutrophils % 76.6 Lymphocytes % 11.9 Monocytes % 8.7 Eosinophils % 1.8 Basophils % 0.5 Nucleated RBC % (0.0-0.3) % 0.0 Absolute Neutrophils (1.2-6.7) 10^3/uL 6.33 Absolute Lymphocytes (1.2-3.4) 10^3/uL 0.98 L Absolute Monocytes (0.1-0.8) 10^3/uL 0.72 Absolute Eosinophils (0.0-0.7) 10^3/uL 0.15 Absolute Basophils (0.0-0.2) 10^3/uL 0.04 Macrocytosis D-Dimer (<500) ng/mlFEU ABG Sample Site Left Radial ABG pH (7.35-7.45) 7.27 L ABG pCO2 (35-45) mmHg 89 H* ABG pO2 (80-105) mmHg 58 L ABG HCO3 (22-26) mmol/L 41 H ABG Total CO2 (23-27) mmol/L 39 H ABG O2 Saturation (95-98) % 88 L ABG Base Excess (-2-3) mmol/L 14 H VBG pH (7.31-7.41) VBG pCO2 (41-51) mmHg VBG pO2 mmHg VBG HCO3 (23-28) mmol/L VBG Total CO2 (24-29) mmol/L VBG O2 Saturation % VBG Base Excess (-2-3) mmol/L Oxygen Liter Flow L 45 FiO2 % 60 Sodium (136-145) mmol/L 142 Potassium (3.5-5.1) mmol/L 3.9 Chloride (98-107) mmol/L 96 L Carbon Dioxide (21.0-32.0) mmol/L 41.2 H Anion Gap (3-11) mmol/L 4.8 BUN (7-18) mg/dL 45 H Creatinine (0.55-1.02) mg/dL 2.2 H Est GFR (CKD-EPI 2020) (mL/min/1.73m2) 22.81 Glucose (74-106) mg/dL 109 H Calcium (8.5-10.1) mg/dL 9.6 Total Bilirubin (0.2-1.0) mg/dL AST (15-37) U/L ALT (14-59) U/L Alkaline Phosphatase (46-116) U/L Troponin I (<or=60) ng/L NT-Pro-B Natriuret Pep (<300) pg/mL Total Protein (6.4-8.2) g/dL Albumin (3.4-5.0) g/dL COVID-19 Source SARS-CoV-2 (PCR) (Negative) Influenza Type A (PCR) (Negative) Influenza Type B (PCR) (Negative) RSV (PCR) (Negative) Add-On Test Request Range/Units 05/18/22 05/18/22 05/18/22 06:16 06:16 10:02 WBC (4.4-10.8) 10^3/uL RBC (3.93-5.22) 10^6/uL Hgb (11.2-15.7) g/dL Hct (36.0-46.0) % MCV (80-95) fL MCH (27.0-33.0) pg MCHC (32.0-36.0) % RDW (11.7-14.6) % Plt Count (130-400) 10^3/uL MPV (8.0-11.0) fL Immature Gran % Neutrophils % Lymphocytes % Monocytes % Eosinophils % Basophils % Nucleated RBC % (0.0-0.3) % Absolute Neutrophils (1.2-6.7) 10^3/uL Absolute Lymphocytes (1.2-3.4) 10^3/uL Absolute Monocytes (0.1-0.8) 10^3/uL Absolute Eosinophils (0.0-0.7) 10^3/uL Absolute Basophils (0.0-0.2) 10^3/uL Macrocytosis D-Dimer (<500) ng/mlFEU ABG Sample Site ABG pH (7.35-7.45) ABG pCO2 (35-45) mmHg ABG pO2 (80-105) mmHg ABG HCO3 (22-26) mmol/L ABG Total CO2 (23-27) mmol/L ABG O2 Saturation (95-98) % ABG Base Excess (-2-3) mmol/L VBG pH (7.31-7.41) 7.42 H VBG pCO2 (41-51) mmHg 68 H* VBG pO2 mmHg 35 VBG HCO3 (23-28) mmol/L 44 H VBG Total CO2 (24-29) mmol/L 41 H VBG O2 Saturation % 67 VBG Base Excess (-2-3) mmol/L > 15 H Oxygen Liter Flow L FiO2 % Sodium (136-145) mmol/L Potassium (3.5-5.1) mmol/L Chloride (98-107) mmol/L Carbon Dioxide (21.0-32.0) mmol/L Anion Gap (3-11) mmol/L BUN (7-18) mg/dL Creatinine (0.55-1.02) mg/dL Est GFR (CKD-EPI 2020) (mL/min/1.73m2) Glucose (74-106) mg/dL Calcium (8.5-10.1) mg/dL Total Bilirubin (0.2-1.0) mg/dL AST (15-37) U/L ALT (14-59) U/L Alkaline Phosphatase (46-116) U/L Troponin I (<or=60) ng/L NT-Pro-B Natriuret Pep (<300) pg/mL 6492 H Total Protein (6.4-8.2) g/dL Albumin (3.4-5.0) g/dL COVID-19 Source SARS-CoV-2 (PCR) (Negative) Influenza Type A (PCR) (Negative) Influenza Type B (PCR) (Negative) RSV (PCR) (Negative) Add-On Test Request DONE Range/Units 05/18/22 05/19/22 05/19/22 16:10 05:52 05:52 WBC (4.4-10.8) 10^3/uL 9.06 RBC (3.93-5.22) 10^6/uL 3.42 L Hgb (11.2-15.7) g/dL 10.6 L Hct (36.0-46.0) % 33.7 L MCV (80-95) fL 99 H MCH (27.0-33.0) pg 31.0 MCHC (32.0-36.0) % 31.5 L RDW (11.7-14.6) % 15.6 H Plt Count (130-400) 10^3/uL 178 MPV (8.0-11.0) fL 10.5 Immature Gran % 0.3 Neutrophils % 79.6 Lymphocytes % 9.9 Monocytes % 9.8 Eosinophils % 0.3 Basophils % 0.1 Nucleated RBC % (0.0-0.3) % 0.0 Absolute Neutrophils (1.2-6.7) 10^3/uL 7.20 H Absolute Lymphocytes (1.2-3.4) 10^3/uL 0.90 L Absolute Monocytes (0.1-0.8) 10^3/uL 0.89 H Absolute Eosinophils (0.0-0.7) 10^3/uL 0.03 Absolute Basophils (0.0-0.2) 10^3/uL 0.01 Macrocytosis D-Dimer (<500) ng/mlFEU 649 H ABG Sample Site ABG pH (7.35-7.45) ABG pCO2 (35-45) mmHg ABG pO2 (80-105) mmHg ABG HCO3 (22-26) mmol/L ABG Total CO2 (23-27) mmol/L ABG O2 Saturation (95-98) % ABG Base Excess (-2-3) mmol/L VBG pH (7.31-7.41) VBG pCO2 (41-51) mmHg VBG pO2 mmHg VBG HCO3 (23-28) mmol/L VBG Total CO2 (24-29) mmol/L VBG O2 Saturation % VBG Base Excess (-2-3) mmol/L Oxygen Liter Flow L FiO2 % Sodium (136-145) mmol/L 140 Potassium (3.5-5.1) mmol/L 4.0 Chloride (98-107) mmol/L 94 L Carbon Dioxide (21.0-32.0) mmol/L 43.9 H Anion Gap (3-11) mmol/L 2.1 L BUN (7-18) mg/dL 53 H Creatinine (0.55-1.02) mg/dL 2.3 H Est GFR (CKD-EPI 2020) (mL/min/1.73m2) 21.62 Glucose (74-106) mg/dL 146 H Calcium (8.5-10.1) mg/dL 9.1 Total Bilirubin (0.2-1.0) mg/dL AST (15-37) U/L ALT (14-59) U/L Alkaline Phosphatase (46-116) U/L Troponin I (<or=60) ng/L NT-Pro-B Natriuret Pep (<300) pg/mL Total Protein (6.4-8.2) g/dL Albumin (3.4-5.0) g/dL COVID-19 Source SARS-CoV-2 (PCR) (Negative) Influenza Type A (PCR) (Negative) Influenza Type B (PCR) (Negative) RSV (PCR) (Negative) Add-On Test Request
[2022-05-19] MEDS: Calcium 600mg/Vit D 200U TAB 1 TAB PO ×2 (08:16→20:06)
[2022-05-19] MEDS: Apixaban 5 MG TAB PO ×2 (08:16→20:07)
[2022-05-19] MEDS: predniSONE 20 MG TAB 40 MG PO (08:16)
[2022-05-19] MEDS: Pantoprazole 40 MG TABCR PO (08:16)
[2022-05-19] MEDS: amLODIPine 5 MG TAB PO (08:16)
[2022-05-19] MEDS: Docusate Sodium 100 MG CAP PO ×2 (08:16→20:06)
[2022-05-19] MEDS: Magnesium Oxide 400 MG TAB PO (08:17)
[2022-05-19] MEDS: Acetaminophen 500 MG TAB PO ×2 (08:17→14:14)
[2022-05-19] MEDS: Levalbuterol 1.25 MG/3 ML UPD VIAL UPD ×4 (08:51→19:39)
--- NOTE | 2022-05-19 11:17 | PT.INTREAT ---
PT Notes Visit Reasons: Congestive heart failure Date: 05/19/2022 PRECAUTIONS: Fall, Activity as tolerated SUBJECTIVE: Flo reports that she continues to have significant pain in B feet due to what she believes is gout.? She is agreeable to attempting to stand. Pt transfer going from supine to recliner idania lift. pt still in 10/10 pain when approached for therapy in the afternoon. pt already pre medicated 30mins prior to stat of afternoon therapy. OBJECTIVE: ? PAIN: Patient c/o severe pain in B feet to touch and with weight bearing ? BED MOBILITY/TRANSFERS: defer due to gout flare ? Therapeutic Activities 82308: instruction in dynamic activities with one on one patient contact by the provider to improve functional performance?as follows: AROM for ankle pumping AROM for kne flexion in half sitting 10xset AROM for hip flexion,extension, abduction, adduction [id number] each Hooklying hip fallout [id number] Heel slides [id number] Gluteal setting [id number] trunk partial crunches [id number] Unsupported long sitting 15secs x2 ? GAIT: Unable? ASSESSMENT:? Patient tolerated session with complaint of B foot pain with all activity and to touch.? She demonstrates global weakness and deconditioning. PLAN: Continue with global strengthening and general conditioning for improved mobility and activity tolerance, as tolerated. TREATMENT CODE/TIME: Session 1: 32 minutes; 41618 x2 (09:10-09:40am) Session 2: 15mins [id number] (13:30- 13:45pm)
[2022-05-19] MEDS: Insulin Aspart 300 UNITS/3 ML PEN SC ×3 (12:12→22:03)
--- NOTE | 2022-05-19 12:21 | W.PALLCONSUL ---
Date of service: 05/19/22 Time of Service: 12:22 History of Present Illness Narrative: Flo Walker is a 76 year old woman with multiple comorbidities including CHF with preserved EF (EF 55%), obesity hypoventilation syndrome, YARELY,(BiPap) chronic respiratory failure with hypercapnia, with home O2, CKD4, a-fib (chronic anticoagulation DOAC), HTN, HLD, DM2 who was admitted to [facility] May with acute respiratory failure due to acute worsening CHF. .She has been followed as an outpatient by the Palliative Care Team. We are meeting with her today to continue support and review goals of care, code status and help with decision making. Reason for admission was respiratory failure with hypoxia and hypercapnia. She is also fluid overloaded. She has been on a Bumex drip with very cautious diuresis. Creatinine has remained stable with this. High flow oxygen during the day currently at 35 L/min. BiPAP at night. At home uses BiPAP ostensibly for YARELY. Previous hospitalization was over a year ago. Unsure what precipitated this episode. Another issue has been a Gout flare since admission. Pain in both feet. On prednisone burst for this. Does not seem that she was on allopurinol as an outpatient. Has had gout flares in the past, especially when acutely ill. Both she and staff note that she has been extremely weak during this admission. Has needed to be transferred via Gabriela lift, this is never been needed before she has been unable to stand unassisted, feels like she is going to fall over and her legs are going to go out. Care Team: Primary Care physician: Laverne Owens Pulmonary: Aftab Cardiology: Andreia Podiatry: Gurvinder Social HX: Lives in [place] with son Abdias in [facility]. He works. 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 Spends most of her day watching TV, sitting on couch. Has a cat. Never smoked. Has been 3 times. 2 husbands have , from one. Daughter lives in [place] with her 8 kids; she is estranged from this daughter and they do not talk. Still friendly with her [id number] in [place], they speak on the phone occasionally.. Impression of currents health status: wishes she could get up and walk around. Asked a few times, no cleare answer. What bothers you the most: This catheter in my bladder. (As per nursing, has to stay in until off Bumex drip). Never needed gabriela before this admission. What worries you the most: That I am going to choke. (Feels like this whenever she has CHF) What helps you cope: doing puzzles and watching TV. Most of her friends have . Son family is supportive but not other family members. Current information preferences: Function: Ambulation: Walker, difficulty with 4 steps in and out of home. Has not been leaving home. ADLs:Independent (needs help with bra) iADLs: Prepares simple snacks and coffee. Not cooking. BAthes with spotting, Son does finances. Hearing: SLightly decreased (as per son), no hearing aids. Vision: OK Additional Support Services: From [facility] Palliative, nurse comes in weekly. Palliative Performance Scale % Ambulation Activity and Evidence of Disease Self Care Intake Level of Consciousness 100 Full Normal activity, no evidence of disease Full Normal Full 90 Full Normal activity, some evidence of disease Full Normal Full 80 Full Normal activity with effort, some evidence of disease Full Normal or reduced Full 70 Reduced Unable to do normal work, some evidence of disease Full Normal or reduced Full 60 Reduced Unable to do hobby or some housework, significant disease Occasional assist necessary Normal or reduced Full or confusion 50 Mainly sit/lie Unable to do any work, extensive disease Considerable assistance required Normal or reduced Full or confusion 40 Mainly in bed Unable to do any work, extensive disease Mainly assistance Normal or reduced Full, drowsy, or confusion 30 Totally bed bound Unable to do any work, extensive disease Total care Reduced Full, drowsy, or confusion 20 Totally bed bound Unable to do any work, extensive disease Total care Minimal sips Full, drowsy, or confusion 10 Totally bed bound Unable to do any work, extensive disease Total care Mouth care only Drowsy or coma 0 - - - - Patient Score: 60 Spiritual history: Watches Mass on line, would like to have rattlesnake farmer see her. Palliative review of systems: Pain: Abd to back spasms. Dyspnea: NOt really GI symptoms: NO issues Appetite:Low. Depression: None Anxiety: Anxious when she can't breath right only. Emotional Distress: Spiritual/Existential Distress: Labs: Cr: 2.2-2.3 (Steadily worsening over the last few years Liver panel: NL Albumin: 3.3 CBC:Slight anemia since admission. Advanced Care Planning: Advanced Directive: ON file, reviewed Health Care Agent: Son Ricco ROMERO: Full Code, see 01/2022 Pall Note Limitations: Assessment and Plan Assessment and plan (1) Respiratory failure with hypoxia and hypercapnia: Status: Acute Assessment and plan: Patient with pulmonary hypertension tension due to obesity and YARELY which is resulting in chronic respiratory failure now with acute exacerbation and CHF. Further evaluation and treatment as per hospitalist, respiratory therapy, produce specialist. (2) Obstructive sleep apnea treated with BiPAP: Status: Acute (3) CHF (congestive heart failure): Status: Acute Qualifiers: Heart failure chronicity: chronic Heart failure type: unspecified Qualified Code(s): I50.9 - Heart failure, unspecified (4) Dependence on supplemental oxygen: Status: Chronic (5) Palliative care status: Status: Chronic (6) Advanced care planning/counseling discussion: Status: Acute Assessment and plan: Patient has talked with palliative care team members over the last 2 years regarding goals of care and limitations of care.: -Throughout this time she is persistently wanted to have cardiopulmonary resuscitation and at least a trial period of intubation should that be needed -However she is adamantly against spending any time in a longterm -Today we again addressed these issues. I explained that it appears that her clinical situation has decreased. She has been unable to leave the house for 4 months which indicates decrease in functioning overall. I wondered given this change, if her heart were to stop, and given poor chance of resuscitation and even smaller chance of leaving the hospital cognitively intact should she have a cardiac arrest, if she would consider changing her CODE STATUS to DNR/DNI. We discussed her 's final illness and . SoUnds like he had been resuscitated, was brought back in a coma and then subsequently . She felt it was important that they at least tried . She would want the same to happen with her. She understands there is a very low chance of CPR and defibrillation being successful at restoring a heartbeat; and that if heartbeat is restored, she would likely be ventilator dependent for at least a while (and likely long time given her underlying disease, and also likely have lower cognitive functioning. Her discussions around CPR are somewhat tangential, I get the sense she is uncomfortable with the subject even though she is invited to talk about this. , at this time she would like to continue to be a full code. Please note that as per discussion today and as stated in her advanced directive, should she need to be on a ventilator, she would only want a trial of ventilator and it sounds like at that point she would defer to her son as to whether withdraw life support after a trial. -Her goal is to return to her home where she lives with her and enjoys watching TV. -She is encouraged to participate in physical therapy as much as possible so that there is a possibility she can return directly home rather than have to go to [facility] for additional strengthening. Palliative care team plans to follow her while she is at the hospital. Please call us sooner if needed.. (7) Weakness generalized: Status: Acute Assessment and plan: She reports that her home care nurse from [facility] is working on getting a ramp built into their mobile home. She enjoys going out shopping to [employer] with her son. However very difficult to get the 4 steps into and out of the house. (8) CKD stage 4 due to type 2 diabetes mellitus: Status: Acute Assessment and plan: Unfortunately, her renal function is slowly declining and significant roll changer the last year. I did not discuss dialysis with her today. This is possibly discussion for a future palliative care visit (9) Gout: Status: Chronic Assessment and plan: Patient reports gouty flare every time she is admitted to the hospital. I do not see that she was on allopurinol prior to hospital admission. And not on past [facility] med list. Consider starting as out ot once stable at renal dosing. 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 2 diabetes mellitus (Acute) Weakness generalized (Acute) Advanced care planning/counseling discussion (Acute) Respiratory failure with hypoxia and hypercapnia (Acute) Discharge planning issues (Acute) Obstructive sleep apnea treated with BiPAP (Acute) Hypoxia (Acute) Trigger finger, right middle finger (Acute) Injection: 05/04/2022 Right carpal tunnel syndrome (Acute) CHF (congestive heart failure) (Acute 02/23/14) Preserved EF (10/2020 & 08/2021 ECHO) Obstructive sleep apnea (Chronic 02/23/14) Sleep Med Referral, 04/17/2019-->Very severe YARELY; CPAP ([employer]) with continuous O2, new Panda C-Pap 01/2021 Type II diabetes mellitus (Chronic) Hypertension (Chronic) Hyperlipidemia (Chronic) Atrial fibrillation (Chronic) Apixaban Anemia (Chronic) Pulmonary hypertension (Chronic) CKD (chronic kidney disease) (Chronic) Dependence on supplemental oxygen (Chronic) YARELY + Pulm HTN Palliative care status (Chronic) Full code status (Chronic) Chronic low back pain (Chronic 07/24/15) CT-lumbar spine 2019-- Severe multilevel degenerative changes in the lumbar spine resulting in neural foraminal and central spinal canal stenosis. Chronic anticoagulation (Chronic) AF--Apixaban Risk for falls (Chronic) Sedentary lifestyle (Chronic) B12 deficiency (Chronic) Start B12 injections; elevated MCV Gout attack (Acute) R podagra, first attach 10/2020-->treated with colchine, effective Chronic respiratory failure with hypercapnia (Chronic) Obesity hypoventilation syndrome (Chronic) Obesity + Severe YARELY + Chronic Hypercapnia Dependent on walker for ambulation (Chronic) Hypomagnesemia (Acute ~07/2021) Mild mitral valve regurgitation (Acute ~08/2021) ECHO Trace tricuspid valve regurgitation (Acute ~08/2021) ECHO Medical History Adult body mass index 50.0-59.9 Carpal tunnel syndrome, bilateral (12/17/16) Dietary counseling reviewed sodium levels in her food, how to count mg, goal of 1500 mg daily due to CHF 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 Folate deficiency Low 12/2018; resolved 05/2019 labs; discontinued 02/05/2020 h/o elbow fx H/O fracture of nose H/O rotator cuff tear Heme + stool [facility] Upper GI Endoscopy Peptic Duodenitis (pathology report); repeat hemoccults NEG 11/2019 HTN (hypertension) Insulin dependent diabetes mellitus Iron deficiency EGD 05/23/19 at [facility]; discont supp iron & vit c 02/05/2020; Hgb stable and iron constipating; she will obtain dietarily Lipoma Lipoma of arm YARELY (obstructive sleep apnea) Peptic ulcer of duodenum [facility] Path reports upper endoscopy; RX Carafate Renal calculi Non obstructive per CT Restrictive lung disease (~03/2014) PFTs validated 04/04/2014-->see scanned docs Sciatica of right side without back pain RX Medrol Spinal stenosis, lumbar Surgical History Biopsy, Temporal Artery (01/18/15) DR.C YOUNG [facility] (08/14/16) History of carpal tunnel repair Left- 1998 Right- 2017 History of shoulder surgery Right shoulder repair - 2004 History of total abdominal hysterectomy and bilateral salpingo-oophorectomy (~02/1999) History of total bilateral knee replacement History of total knee arthroplasty bilateral Family History Mother Heart disease Father Heart disease Lung cancer Brother Heart disease AAA (abdominal aortic aneurysm, ruptured) Brother Obesity Son No problems noted. Daughter Stillborn, abnormal Daughter No problems noted. 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 Pets and animals: Yes Pets and animals: cat(s) Sexually active: No Do you think of yourself as: straight/heterosexual Current gender identity: female What is your relationship status?: How often do you talk on the phone with friends or family?: once per week How often do you get together with friends or relatives?: once per week Panel score (0-1 are the most socially isolated patients): 0 What type of physical activity do you participate in: none and sedentary lifestyle Special jakob needs: No Agree to transfusion: Yes Seatbelt use: always In current or past relationships, have you been: made to feel afraid Do you feel safe at home: Yes Do you feel safe in your relationship?: Yes Additional Social history: per preop: Lives with son Abdias in house trailer. He works. He never left home. She is on home oxygen. Spends most of her day watching TV, sitting on couch. Has a cat. Never smoked. Has been 3 times. 2 husbands have , from one. Daughter lives in [place] with her 8 kids. Exam Narrative Exam Narrative: Pleasant elderly female laying slightly reclined in recliner with feet elevated. Slightly pale. Occasional dry cough. High flow oxygen on. Quite talkative and able to speak in complete sentences without of breath. Extremities reveal no edema. I see no erythema consistent with her recent gout attack. Results Last Vital Signs Temp 37.1 C 05/19/22 08:21 Pulse 87 05/19/22 09:02 Resp 24 05/19/22 09:02 BP 126/71 05/19/22 08:21 Pulse Ox 88 L 05/19/22 09:02 Labs 05/19/22 05:52 05/19/22 05:52 Labs: Laboratory Results - last 24 hr 05/18/22 05/19/22 05/19/22 16:10 05:52 05:52 WBC 9.06 RBC 3.42 L Hgb 10.6 L Hct 33.7 L MCV 99 H MCH 31.0 MCHC 31.5 L RDW 15.6 H Plt Count 178 MPV 10.5 Immature Gran % 0.3 Neutrophils % 79.6 Lymphocytes % 9.9 Monocytes % 9.8 Eosinophils % 0.3 Basophils % 0.1 Nucleated RBC % 0.0 Absolute Neutrophils 7.20 H Absolute Lymphocytes 0.90 L Absolute Monocytes 0.89 H Absolute Eosinophils 0.03 Absolute Basophils 0.01 D-Dimer 649 H Sodium 140 Potassium 4.0 Chloride 94 L Carbon Dioxide 43.9 H Anion Gap 2.1 L BUN 53 H Creatinine 2.3 H Est GFR (CKD-EPI 2020) 21.62 Glucose 146 H Calcium 9.1
--- NOTE | 2022-05-19 12:58 | PGE_ITS ---
Date of Service Date of service: 05/19/22 Time of Service: 12:58 Assessment and Plan Assessment and plan (1) CHF (congestive heart failure): Status: Acute Assessment and plan: will stop bumex drip and return to bolus dosing continue to follow I&O, daily weights limited echo completed The left ventricle is normal size. The left ventricular systolic function is normal. The left ventricular ejection fraction is within the normal range. There is normal left ventricular wall thickness. LVEF is 55% followed by Dr Boswell, See consultation note. Qualifiers: Heart failure chronicity: chronic Heart failure type: unspecified Qualified Code(s): I50.9 - Heart failure, unspecified (2) Gout attack: Status: Acute Assessment and plan: Unable to use colchicine in setting of chronic kidney disease continue prednisone Qualifiers: Gout etiology: unspecified cause Gout site: unspecified site Qualified Code(s): M10.9 - Gout, unspecified (3) Obstructive sleep apnea treated with BiPAP: Status: Acute Assessment and plan: continue home therapy while hospitalized pulmonary following, (4) Chronic anticoagulation: Status: Chronic Assessment and plan: on apixaban for chronic atrial fibrillation. (5) Type II diabetes mellitus: Status: Chronic Assessment and plan: continue diabetic diet with sliding scale coverage ac/hs continue home medications A1C 7.8 in Mar 2022 Qualifiers: Chronic kidney disease stage: stage 3 (moderate) Diabetes mellitus complication detail: with chronic kidney disease Diabetes mellitus complication status: with kidney complications Diabetes mellitus supervisor intermediates insulin use: with supervisor intermediates use Qualified Code(s): E11.22 - Type 2 diabetes mellitus with diabetic chronic kidney disease; N18.3 - Chronic kidney disease, stage 3 (moderate); Z79.4 - skilled nursing (current) use of insulin (6) CKD (chronic kidney disease): Status: Chronic Assessment and plan: creatinine stable and at baseline. avoid nephrotoxic drugs. Qualifiers: Chronic kidney disease stage: stage 4 (severe) Qualified Code(s): N18.4 - Chronic kidney disease, stage 4 (severe) (7) Discharge planning issues: Status: Acute Assessment and plan: case management following palliative care consulted for goals of care and to review code status anticipate discharge to residential facility in setting of significant physical decline and worsening respiratory status since admission, she is adamantly refusing SNF referral at this time. discussed with Dr Stranathan Subjective Subjective Interval history since last seen: patient continues to physically decline, now requiring steady lift for transfers. she is taking in PO and more alert when compliant with bipap, otherwise will desat and become hypercarbic. she was evaluated by pulmonary who is following. Exam Narrative Exam Narrative: sitting up in chair, more interactive today Const General: cooperative, comfortable and no acute distress Nutritional Appearance: overweight Orientation: alert, awake and oriented x3 HENMT Head: normal to inspection, normocephalic and atraumatic Mouth: oral mucosae normal Chest Chest: normal inspection of the chest Resp Effort & Inspection: normal respiratory effort Auscultation: diminished lung sounds (bases bilaterally) Cardio Rate: regular rate GI Inspection: normal to inspection Palpation: soft Auscultation: normal bowel sounds General: other (marino draining med yellow urine) Neuro General: patient alert, patient awake and patient oriented x3 (at baseline) Cognition: normal cognition Extrem General: normal to inspection and no pedal edema Psych Mental Status: mental status grossly normal Speech and Movement: speech and movement normal Mood: congruent mood Affect: normal affect Objective Last Vital Signs Temp 37.1 C 05/19/22 08:21 Pulse 87 05/19/22 09:02 Resp 24 05/19/22 09:02 BP 126/71 05/19/22 08:21 Pulse Ox 88 L 05/19/22 09:02 Laboratory Results - last 24 hr 05/18/22 05/19/22 05/19/22 16:10 05:52 05:52 WBC 9.06 RBC 3.42 L Hgb 10.6 L Hct 33.7 L MCV 99 H MCH 31.0 MCHC 31.5 L RDW 15.6 H Plt Count 178 MPV 10.5 Immature Gran % 0.3 Neutrophils % 79.6 Lymphocytes % 9.9 Monocytes % 9.8 Eosinophils % 0.3 Basophils % 0.1 Nucleated RBC % 0.0 Absolute Neutrophils 7.20 H Absolute Lymphocytes 0.90 L Absolute Monocytes 0.89 H Absolute Eosinophils 0.03 Absolute Basophils 0.01 D-Dimer 649 H Sodium 140 Potassium 4.0 Chloride 94 L Carbon Dioxide 43.9 H Anion Gap 2.1 L BUN 53 H Creatinine 2.3 H Est GFR (CKD-EPI 2020) 21.62 Glucose 146 H Calcium 9.1 Time Spent with Patient Time Spent with Patient: 25-34 minutes Time was spent: preparing to see the patient(eg.review tests), obtaining and/or reviewing separately otained hiistory, ordering medications,tests, procedures, referring, communicating with other health pharmacist critical care, indepentently interpreting results and counseling the patient
--- NOTE | 2022-05-19 15:54 | CMPROGNOTE_ITS ---
- If Service Date Differs Date of service: 05/19/22 Time of Service: 15:54 Care Management Progress Note S/O: Jane met with Palliative Provider, Dr. De Jesus today, she remains consistent about going home when medically ready. Per pt, she has [facility] moderate needs and may be able to get additional services. CM left a message her [facility] CM Makayla Flores; no response at time of documentation. CM will continue to follow. A: 76 year old female admitted to [facility] on 05/15/22 for CHF P: Anticipate Mohan will discharge home with new [facility] orders when medically ready. CM will continue to support Mohan and further discharge planning considerations.
[2022-05-19] MEDS: Bumetanide 1 MG/4 ML VIAL 4 MG IVP (16:04)
[2022-05-19] MEDS: Normal Saline Flush 10 ML SYR IVP (16:04)
[2022-05-19] MEDS: Insulin Glargine 300 UNITS/3 ML PEN 20 UNITS SC (22:02)
[2022-05-20] VITALS (17 sets, daily range): BP systolic 131–154; BP diastolic 55–72; PULSE 51–85; RESP 2–27; TEMP 31–36.6; O2SAT 35–99
--- NOTE | 2022-05-20 07:23 | W.PULMPROG ---
Assessment and Plan Assessment and plan (1) Obstructive sleep apnea treated with BiPAP: Status: Acute (2) Respiratory failure with hypoxia and hypercapnia: Status: Acute (3) Pulmonary hypertension: Status: Chronic (4) Obesity hypoventilation syndrome: Status: Chronic Assessment and plan: This is a co morbid 76 yo with YARELY/OHS, CHF and respiratory failure. She is retaining significant CO2 despite BiPAP therapy, indicating a failure of this therapy. I think she should be on an AVAPS device (Trilogy, SEN, etc) at this point given recurrent hospitalizations for hypoxic and hypercapnic respiratory failure despite BiPAP therapy with a back up rate. In order to qualify her for this she will need spirometry to show restriction but this will have to occur when she is closer to her baseline from a respiratory perspective - off HFNC consistently and back on her home BiPAP unit. Hypoxic and hypercapnic respiratory failure - continue with supplemental O2 for sats >90% - continue home BiPAP at night once able to tolerate - levalbuterol neb QID YARELY/OHS - evidence of BiPAP failure - once closer to respiratory baseline (off HFNC and tolerating home BiPAP unit) recommend inpatient spirometry - recommend Trilogy if she qualifies (FEV1/FVC >70% required) for OHS/restrictive lung process - will arrange outpatient fu in pulmonary General Date Of Service Date of service: 05/20/22 Time of Service: 07:23 Reason for Consult: Hypercapnic and hypoxic respiratory failure Subjective Note Note: Sleeping comfortably this morning on BiPAP Exam Narrative Exam Narrative: Gen:?NAD, normal respiratory effort, obese HENT:?PERRL Chest:?No respiratory distress, normal appearance of chest, clear to auscultation bilaterally, diminished breath sounds in bed Heart:?regular rate and rhythym, no murmurs, rubs or gallops Abdomen:?Non-distended Extremities:?No clubbing, edema, cyanosis, rashes Neuro:?sleeping Psych:?sleeping Objective Last Vital Signs Temp 36 C L 05/20/22 07:19 Pulse 51 L 05/20/22 07:19 Resp 20 05/20/22 07:19 BP 149/66 H 05/20/22 07:19 Pulse Ox 98 05/20/22 07:19 Results Medications Medications: Active Medications Generic Name Dose Route Start Last Admin Trade Name Freq PRN Reason Stop Dose Admin Acetaminophen 500 mg 03/03/23 14:20 05/19/22 14:14 Acetaminophen 500 Mg Tab PO 500 mg Q6H PRN PRN Administration Amlodipine Besylate 5 mg 05/16/22 08:30 05/19/22 08:16 Amlodipine 5 Mg Tab PO 5 mg DAILY OLIVIA Administration Apixaban 5 mg 05/15/22 20:00 05/19/22 20:07 Apixaban 5 Mg Tab PO 5 mg BID OLIVIA Administration Bumetanide 4 mg 05/19/22 16:00 05/19/22 16:04 Bumetanide 1 Mg/4 Ml Vial IVP 4 mg BID DIURETIC OLIVIA Administration Calcium/Vitamin D 1 tab 05/15/22 20:00 05/19/22 20:06 Calcium 600mg/Vit D 200u Tab PO 1 tab BID OLIVIA Administration Dextrose 0 gm 05/15/22 14:18 Glucose Oral Gel 15 Gm/37.5 Gm Tube PO DIRECTED PRN Dextrose/Water 0 gm 05/15/22 14:18 Dextrose 50%-Water 25 Gm/50 Ml Syr IVP DIRECTED PRN Dimethicone/Zinc Oxide 0 gm 05/15/22 13:42 Yudy Protect Cream 142 Gm Tube TP PRN PRN Docusate Sodium 100 mg 05/15/22 20:00 05/19/22 20:06 Docusate Sodium 100 Mg Cap PO 100 mg BID OLIVIA Administration Fluticasone Propionate 0 gm 05/15/22 14:20 Fluticasone Nasal [place] 16 Gm Btl NS DAILY PRN PRN allergy symptoms Insulin Aspart 0 units 05/15/22 17:00 05/19/22 22:03 Insulin Aspart 300 Units/3 Ml Pen SC 8 units 0800,1200,1700,2200 [facility] Administration Protocol Insulin Glargine 20 units 05/16/22 22:00 05/19/22 22:02 Insulin Glargine 300 Units/3 Ml Pen SC 20 units HS [facility] Administration Levalbuterol HCl 1.25 mg 05/18/22 12:00 05/19/22 19:39 Levalbuterol 1.25 Mg/3 Ml Upd Vial UPD 1.25 mg QID OLIVIA Administration Magnesium Oxide 400 mg 05/16/22 08:30 05/19/22 08:17 Magnesium Oxide 400 Mg Tab PO 400 mg DAILY OLIVIA Administration Pantoprazole Sodium 40 mg 05/16/22 07:30 05/19/22 08:16 Pantoprazole 40 Mg Tabcr PO 40 mg DAILY@0730 OLIVIA Administration Polyethylene Glycol 17 gm 05/18/22 08:40 05/19/22 08:27 Polyethylene Glycol 3350 17 Gm Packet PO Not Given DAILY OLIVIA Prednisone 40 mg 05/18/22 12:00 05/19/22 08:16 Prednisone 20 Mg Tab PO 40 mg DAILY OLIVIA Administration Simethicone 80 mg 05/17/22 17:59 05/18/22 07:20 Simethicone 80 Mg Chew PO 80 mg PC & HS PRN Administration Abdominal Pain Sodium Chloride 0 ml 05/15/22 18:05 05/19/22 16:04 Normal Saline Flush 10 Ml Syr IVP 10 ml PRN PRN Administration Allergies codeine Allergy (Severe, Verified 05/15/22 10:12) Swelling/Edema furosemide [From Lasix] Allergy (Severe, Verified 05/15/22 10:12) Swelling/Edema morphine Allergy (Severe, Verified 05/15/22 10:12) Swelling/Edema peanut Allergy (Severe, Verified 05/15/22 10:12) Nausea tree nut Allergy (Severe, Verified 05/15/22 10:12) acetaminophen [From Percocet] Allergy (Intermediate, Verified 05/15/22 10:12) ITCHY adhesive tape Allergy (Intermediate, Verified 05/15/22 10:12) Skin Rash oxycodone HCl [From Percocet] Allergy (Intermediate, Verified 05/15/22 10:12) ITCHY apricot Allergy (Unknown, Uncoded 05/15/22 10:12) Labs 05/19/22 05:52 05/19/22 05:52 Labs: Laboratory Tests Range/Units 05/15/22 05/15/22 05/15/22 09:52 09:52 10:17 WBC (4.4-10.8) 10^3/uL 6.82 RBC (3.93-5.22) 10^6/uL 3.64 L Hgb (11.2-15.7) g/dL 12.0 Hct (36.0-46.0) % 37.9 MCV (80-95) fL 104 H MCH (27.0-33.0) pg 33.0 MCHC (32.0-36.0) % 31.7 L RDW (11.7-14.6) % 15.9 H Plt Count (130-400) 10^3/uL 209 MPV (8.0-11.0) fL 10.3 Immature Gran % 0.3 Neutrophils % 69.5 Lymphocytes % 20.8 Monocytes % 5.9 Eosinophils % 2.6 Basophils % 0.9 Nucleated RBC % (0.0-0.3) % 0.0 Absolute Neutrophils (1.2-6.7) 10^3/uL 4.74 Absolute Lymphocytes (1.2-3.4) 10^3/uL 1.42 Absolute Monocytes (0.1-0.8) 10^3/uL 0.40 Absolute Eosinophils (0.0-0.7) 10^3/uL 0.18 Absolute Basophils (0.0-0.2) 10^3/uL 0.06 Macrocytosis D-Dimer (<500) ng/mlFEU ABG Sample Site ABG pH (7.35-7.45) ABG pCO2 (35-45) mmHg ABG pO2 (80-105) mmHg ABG HCO3 (22-26) mmol/L ABG Total CO2 (23-27) mmol/L ABG O2 Saturation (95-98) % ABG Base Excess (-2-3) mmol/L VBG pH (7.31-7.41) VBG pCO2 (41-51) mmHg VBG pO2 mmHg VBG HCO3 (23-28) mmol/L VBG Total CO2 (24-29) mmol/L VBG O2 Saturation % VBG Base Excess (-2-3) mmol/L Oxygen Liter Flow L FiO2 % Sodium (136-145) mmol/L 141 Potassium (3.5-5.1) mmol/L 4.2 Chloride (98-107) mmol/L 102 Carbon Dioxide (21.0-32.0) mmol/L 36.9 H Anion Gap (3-11) mmol/L 2.1 L BUN (7-18) mg/dL 41 H Creatinine (0.55-1.02) mg/dL 2.3 H Est GFR (CKD-EPI 2020) (mL/min/1.73m2) 21.62 Glucose (74-106) mg/dL 164 H Calcium (8.5-10.1) mg/dL 8.6 Total Bilirubin (0.2-1.0) mg/dL 0.5 AST (15-37) U/L 11 L ALT (14-59) U/L 12 L Alkaline Phosphatase (46-116) U/L 73 Troponin I (<or=60) ng/L < 50 NT-Pro-B Natriuret Pep (<300) pg/mL 6833 H Total Protein (6.4-8.2) g/dL 7.0 Albumin (3.4-5.0) g/dL 3.3 L COVID-19 Source Nasopharynx SARS-CoV-2 (PCR) (Negative) Negative Influenza Type A (PCR) (Negative) Negative Influenza Type B (PCR) (Negative) Negative RSV (PCR) (Negative) Negative Add-On Test Request Range/Units 05/15/22 05/16/22 05/16/22 13:02 06:00 06:00 WBC (4.4-10.8) 10^3/uL 7.40 RBC (3.93-5.22) 10^6/uL 3.53 L Hgb (11.2-15.7) g/dL 10.6 L Hct (36.0-46.0) % 37.1 MCV (80-95) fL 105 H MCH (27.0-33.0) pg 30.0 MCHC (32.0-36.0) % 28.6 L D RDW (11.7-14.6) % 15.7 H Plt Count (130-400) 10^3/uL 187 MPV (8.0-11.0) fL 11.0 Immature Gran % 0.8 Neutrophils % 71.3 Lymphocytes % 17.6 Monocytes % 7.2 Eosinophils % 2.6 Basophils % 0.5 Nucleated RBC % (0.0-0.3) % 0.0 Absolute Neutrophils (1.2-6.7) 10^3/uL 5.28 Absolute Lymphocytes (1.2-3.4) 10^3/uL 1.30 Absolute Monocytes (0.1-0.8) 10^3/uL 0.53 Absolute Eosinophils (0.0-0.7) 10^3/uL 0.19 Absolute Basophils (0.0-0.2) 10^3/uL 0.04 Macrocytosis 2+ D-Dimer (<500) ng/mlFEU ABG Sample Site ABG pH (7.35-7.45) ABG pCO2 (35-45) mmHg ABG pO2 (80-105) mmHg ABG HCO3 (22-26) mmol/L ABG Total CO2 (23-27) mmol/L ABG O2 Saturation (95-98) % ABG Base Excess (-2-3) mmol/L VBG pH (7.31-7.41) VBG pCO2 (41-51) mmHg VBG pO2 mmHg VBG HCO3 (23-28) mmol/L VBG Total CO2 (24-29) mmol/L VBG O2 Saturation % VBG Base Excess (-2-3) mmol/L Oxygen Liter Flow L FiO2 % Sodium (136-145) mmol/L 141 Potassium (3.5-5.1) mmol/L 4.3 Chloride (98-107) mmol/L 102 Carbon Dioxide (21.0-32.0) mmol/L 36.4 H Anion Gap (3-11) mmol/L 2.6 L BUN (7-18) mg/dL 39 H Creatinine (0.55-1.02) mg/dL 2.3 H Est GFR (CKD-EPI 2020) (mL/min/1.73m2) 21.62 Glucose (74-106) mg/dL 124 H Calcium (8.5-10.1) mg/dL 8.9 Total Bilirubin (0.2-1.0) mg/dL AST (15-37) U/L ALT (14-59) U/L Alkaline Phosphatase (46-116) U/L Troponin I (<or=60) ng/L < 50 NT-Pro-B Natriuret Pep (<300) pg/mL Total Protein (6.4-8.2) g/dL Albumin (3.4-5.0) g/dL COVID-19 Source SARS-CoV-2 (PCR) (Negative) Influenza Type A (PCR) (Negative) Influenza Type B (PCR) (Negative) RSV (PCR) (Negative) Add-On Test Request Range/Units 05/16/22 05/17/22 05/17/22 13:00 05:26 05:26 WBC (4.4-10.8) 10^3/uL 7.79 RBC (3.93-5.22) 10^6/uL 3.62 L Hgb (11.2-15.7) g/dL 11.1 L Hct (36.0-46.0) % 36.7 MCV (80-95) fL 101 H D MCH (27.0-33.0) pg 30.7 MCHC (32.0-36.0) % 30.2 L RDW (11.7-14.6) % 15.3 H Plt Count (130-400) 10^3/uL 188 MPV (8.0-11.0) fL 10.9 Immature Gran % 0.1 Neutrophils % 72.4 Lymphocytes % 16.2 Monocytes % 8.0 Eosinophils % 2.8 Basophils % 0.5 Nucleated RBC % (0.0-0.3) % 0.0 Absolute Neutrophils (1.2-6.7) 10^3/uL 5.64 Absolute Lymphocytes (1.2-3.4) 10^3/uL 1.26 Absolute Monocytes (0.1-0.8) 10^3/uL 0.62 Absolute Eosinophils (0.0-0.7) 10^3/uL 0.22 Absolute Basophils (0.0-0.2) 10^3/uL 0.04 Macrocytosis D-Dimer (<500) ng/mlFEU ABG Sample Site Left Radial ABG pH (7.35-7.45) 7.36 ABG pCO2 (35-45) mmHg 60 H ABG pO2 (80-105) mmHg 42 L ABG HCO3 (22-26) mmol/L 34 H ABG Total CO2 (23-27) mmol/L 32 H ABG O2 Saturation (95-98) % 79 L ABG Base Excess (-2-3) mmol/L 9 H VBG pH (7.31-7.41) VBG pCO2 (41-51) mmHg VBG pO2 mmHg VBG HCO3 (23-28) mmol/L VBG Total CO2 (24-29) mmol/L VBG O2 Saturation % VBG Base Excess (-2-3) mmol/L Oxygen Liter Flow L HHF SYSTEM FiO2 % 60 Sodium (136-145) mmol/L 141 Potassium (3.5-5.1) mmol/L 4.0 Chloride (98-107) mmol/L 100 Carbon Dioxide (21.0-32.0) mmol/L 40.6 H Anion Gap (3-11) mmol/L 0.4 L BUN (7-18) mg/dL 45 H Creatinine (0.55-1.02) mg/dL 2.3 H Est GFR (CKD-EPI 2020) (mL/min/1.73m2) 21.62 Glucose (74-106) mg/dL 128 H Calcium (8.5-10.1) mg/dL 9.2 Total Bilirubin (0.2-1.0) mg/dL AST (15-37) U/L ALT (14-59) U/L Alkaline Phosphatase (46-116) U/L Troponin I (<or=60) ng/L NT-Pro-B Natriuret Pep (<300) pg/mL Total Protein (6.4-8.2) g/dL Albumin (3.4-5.0) g/dL COVID-19 Source SARS-CoV-2 (PCR) (Negative) Influenza Type A (PCR) (Negative) Influenza Type B (PCR) (Negative) RSV (PCR) (Negative) Add-On Test Request Range/Units 05/17/22 05/18/22 05/18/22 11:45 06:16 06:16 WBC (4.4-10.8) 10^3/uL 8.26 RBC (3.93-5.22) 10^6/uL 3.62 L Hgb (11.2-15.7) g/dL 11.2 Hct (36.0-46.0) % 36.3 MCV (80-95) fL 100 H MCH (27.0-33.0) pg 30.9 MCHC (32.0-36.0) % 30.9 L RDW (11.7-14.6) % 15.5 H Plt Count (130-400) 10^3/uL 178 MPV (8.0-11.0) fL 10.1 Immature Gran % 0.5 Neutrophils % 76.6 Lymphocytes % 11.9 Monocytes % 8.7 Eosinophils % 1.8 Basophils % 0.5 Nucleated RBC % (0.0-0.3) % 0.0 Absolute Neutrophils (1.2-6.7) 10^3/uL 6.33 Absolute Lymphocytes (1.2-3.4) 10^3/uL 0.98 L Absolute Monocytes (0.1-0.8) 10^3/uL 0.72 Absolute Eosinophils (0.0-0.7) 10^3/uL 0.15 Absolute Basophils (0.0-0.2) 10^3/uL 0.04 Macrocytosis D-Dimer (<500) ng/mlFEU ABG Sample Site Left Radial ABG pH (7.35-7.45) 7.27 L ABG pCO2 (35-45) mmHg 89 H* ABG pO2 (80-105) mmHg 58 L ABG HCO3 (22-26) mmol/L 41 H ABG Total CO2 (23-27) mmol/L 39 H ABG O2 Saturation (95-98) % 88 L ABG Base Excess (-2-3) mmol/L 14 H VBG pH (7.31-7.41) VBG pCO2 (41-51) mmHg VBG pO2 mmHg VBG HCO3 (23-28) mmol/L VBG Total CO2 (24-29) mmol/L VBG O2 Saturation % VBG Base Excess (-2-3) mmol/L Oxygen Liter Flow L 45 FiO2 % 60 Sodium (136-145) mmol/L 142 Potassium (3.5-5.1) mmol/L 3.9 Chloride (98-107) mmol/L 96 L Carbon Dioxide (21.0-32.0) mmol/L 41.2 H Anion Gap (3-11) mmol/L 4.8 BUN (7-18) mg/dL 45 H Creatinine (0.55-1.02) mg/dL 2.2 H Est GFR (CKD-EPI 2020) (mL/min/1.73m2) 22.81 Glucose (74-106) mg/dL 109 H Calcium (8.5-10.1) mg/dL 9.6 Total Bilirubin (0.2-1.0) mg/dL AST (15-37) U/L ALT (14-59) U/L Alkaline Phosphatase (46-116) U/L Troponin I (<or=60) ng/L NT-Pro-B Natriuret Pep (<300) pg/mL Total Protein (6.4-8.2) g/dL Albumin (3.4-5.0) g/dL COVID-19 Source SARS-CoV-2 (PCR) (Negative) Influenza Type A (PCR) (Negative) Influenza Type B (PCR) (Negative) RSV (PCR) (Negative) Add-On Test Request Range/Units 05/18/22 05/18/22 05/18/22 06:16 06:16 10:02 WBC (4.4-10.8) 10^3/uL RBC (3.93-5.22) 10^6/uL Hgb (11.2-15.7) g/dL Hct (36.0-46.0) % MCV (80-95) fL MCH (27.0-33.0) pg MCHC (32.0-36.0) % RDW (11.7-14.6) % Plt Count (130-400) 10^3/uL MPV (8.0-11.0) fL Immature Gran % Neutrophils % Lymphocytes % Monocytes % Eosinophils % Basophils % Nucleated RBC % (0.0-0.3) % Absolute Neutrophils (1.2-6.7) 10^3/uL Absolute Lymphocytes (1.2-3.4) 10^3/uL Absolute Monocytes (0.1-0.8) 10^3/uL Absolute Eosinophils (0.0-0.7) 10^3/uL Absolute Basophils (0.0-0.2) 10^3/uL Macrocytosis D-Dimer (<500) ng/mlFEU ABG Sample Site ABG pH (7.35-7.45) ABG pCO2 (35-45) mmHg ABG pO2 (80-105) mmHg ABG HCO3 (22-26) mmol/L ABG Total CO2 (23-27) mmol/L ABG O2 Saturation (95-98) % ABG Base Excess (-2-3) mmol/L VBG pH (7.31-7.41) 7.42 H VBG pCO2 (41-51) mmHg 68 H* VBG pO2 mmHg 35 VBG HCO3 (23-28) mmol/L 44 H VBG Total CO2 (24-29) mmol/L 41 H VBG O2 Saturation % 67 VBG Base Excess (-2-3) mmol/L > 15 H Oxygen Liter Flow L FiO2 % Sodium (136-145) mmol/L Potassium (3.5-5.1) mmol/L Chloride (98-107) mmol/L Carbon Dioxide (21.0-32.0) mmol/L Anion Gap (3-11) mmol/L BUN (7-18) mg/dL Creatinine (0.55-1.02) mg/dL Est GFR (CKD-EPI 2020) (mL/min/1.73m2) Glucose (74-106) mg/dL Calcium (8.5-10.1) mg/dL Total Bilirubin (0.2-1.0) mg/dL AST (15-37) U/L ALT (14-59) U/L Alkaline Phosphatase (46-116) U/L Troponin I (<or=60) ng/L NT-Pro-B Natriuret Pep (<300) pg/mL 6492 H Total Protein (6.4-8.2) g/dL Albumin (3.4-5.0) g/dL COVID-19 Source SARS-CoV-2 (PCR) (Negative) Influenza Type A (PCR) (Negative) Influenza Type B (PCR) (Negative) RSV (PCR) (Negative) Add-On Test Request DONE Range/Units 05/18/22 05/19/22 05/19/22 16:10 05:52 05:52 WBC (4.4-10.8) 10^3/uL 9.06 RBC (3.93-5.22) 10^6/uL 3.42 L Hgb (11.2-15.7) g/dL 10.6 L Hct (36.0-46.0) % 33.7 L MCV (80-95) fL 99 H MCH (27.0-33.0) pg 31.0 MCHC (32.0-36.0) % 31.5 L RDW (11.7-14.6) % 15.6 H Plt Count (130-400) 10^3/uL 178 MPV (8.0-11.0) fL 10.5 Immature Gran % 0.3 Neutrophils % 79.6 Lymphocytes % 9.9 Monocytes % 9.8 Eosinophils % 0.3 Basophils % 0.1 Nucleated RBC % (0.0-0.3) % 0.0 Absolute Neutrophils (1.2-6.7) 10^3/uL 7.20 H Absolute Lymphocytes (1.2-3.4) 10^3/uL 0.90 L Absolute Monocytes (0.1-0.8) 10^3/uL 0.89 H Absolute Eosinophils (0.0-0.7) 10^3/uL 0.03 Absolute Basophils (0.0-0.2) 10^3/uL 0.01 Macrocytosis D-Dimer (<500) ng/mlFEU 649 H ABG Sample Site ABG pH (7.35-7.45) ABG pCO2 (35-45) mmHg ABG pO2 (80-105) mmHg ABG HCO3 (22-26) mmol/L ABG Total CO2 (23-27) mmol/L ABG O2 Saturation (95-98) % ABG Base Excess (-2-3) mmol/L VBG pH (7.31-7.41) VBG pCO2 (41-51) mmHg VBG pO2 mmHg VBG HCO3 (23-28) mmol/L VBG Total CO2 (24-29) mmol/L VBG O2 Saturation % VBG Base Excess (-2-3) mmol/L Oxygen Liter Flow L FiO2 % Sodium (136-145) mmol/L 140 Potassium (3.5-5.1) mmol/L 4.0 Chloride (98-107) mmol/L 94 L Carbon Dioxide (21.0-32.0) mmol/L 43.9 H Anion Gap (3-11) mmol/L 2.1 L BUN (7-18) mg/dL 53 H Creatinine (0.55-1.02) mg/dL 2.3 H Est GFR (CKD-EPI 2020) (mL/min/1.73m2) 21.62 Glucose (74-106) mg/dL 146 H Calcium (8.5-10.1) mg/dL 9.1 Total Bilirubin (0.2-1.0) mg/dL AST (15-37) U/L ALT (14-59) U/L Alkaline Phosphatase (46-116) U/L Troponin I (<or=60) ng/L NT-Pro-B Natriuret Pep (<300) pg/mL Total Protein (6.4-8.2) g/dL Albumin (3.4-5.0) g/dL COVID-19 Source SARS-CoV-2 (PCR) (Negative) Influenza Type A (PCR) (Negative) Influenza Type B (PCR) (Negative) RSV (PCR) (Negative) Add-On Test Request
[2022-05-20] MEDS: predniSONE 20 MG TAB 40 MG PO (08:33)
[2022-05-20] MEDS: Pantoprazole 40 MG TABCR PO (08:33)
[2022-05-20] MEDS: amLODIPine 5 MG TAB PO (08:33)
[2022-05-20] MEDS: Magnesium Oxide 400 MG TAB PO (08:33)
[2022-05-20] MEDS: Calcium 600mg/Vit D 200U TAB 1 TAB PO ×2 (08:33→20:01)
[2022-05-20] MEDS: Docusate Sodium 100 MG CAP PO ×2 (08:33→20:01)
[2022-05-20] MEDS: Polyethylene Glycol 3350 17 GM PACKET PO (08:33)
[2022-05-20] MEDS: Apixaban 5 MG TAB PO ×2 (08:34→20:01)
[2022-05-20] MEDS: Levalbuterol 1.25 MG/3 ML UPD VIAL UPD ×4 (08:46→19:28)
[2022-05-20] MEDS: Bumetanide 1 MG/4 ML VIAL 4 MG IVP ×2 (09:48→16:48)
--- NOTE | 2022-05-20 10:13 | CMPROGNOTE_ITS ---
- If Service Date Differs Date of service: 05/20/22 Time of Service: 10:13 Care Management Progress Note S/O: Mohan was sitting in her recliner, watching TV when CM met with her. She is pleasant and easy to engage in conversation. She remains consistent about her plan to discharge home when medically ready and does not want to talk about going to a SNF for STR again during this stay. Per pt, she will be able to get around ok at home and has a commode. Mohan has C moderate need and per Makayla Flores she is ineligible for caregiver services. CM will continue to follow. A: 76 year old female admitted to [facility] on 05/15/22 for CHF P: Mohan refuses recommendation of SNF for STR. Anticipate, she will discharge home with new [facility] RN/PT/OT and resumption of C Mod. Needs services when medically ready. She will transport via private vehicle with son. CM will continue to support Mohan and further discharge planning considerations.
[2022-05-20] MEDS: Insulin Aspart 300 UNITS/3 ML PEN SC ×3 (11:46→21:26)
--- NOTE | 2022-05-20 13:57 | PT.INTREAT ---
Date of service: 05/20/22 Time of Service: 09:20 PT Notes Visit Reasons: Congestive heart failure Inpatient Physical Therapy Treatment Note [facility] Date: 05/20/2022 PRECAUTIONS: Activity as tolerated, fall SUBJECTIVE: Jane is pleasant and agreeable to participating in PT. She reports that she is feeling better today. She states that she does not want to discharge to a SNF-level rehab, that she would prefer to discharge to home where her and her son have a manageable routine. OBJECTIVE: PAIN: No c/o pain BED MOBILITY/TRANSFERS Sit-stand: Mod A x2 in a.m.; Min A in p.m. Stand-sit: CGA x2 in a.m.; CGA in p.m. GAIT Assistive Device: FWW Weight bearing: WBAT B Assist: CGA x2 in a.m.; CGA in p.m. Distance: 3-5 steps L/R in both a.m. and p.m. Deviation: Slow pacing, limited ability TOILETING: Patient toileted with assist in both a.m. and p.m. THEREX: Patient was instructed in a LE strengthening program, completed in a seated position, to include: ankle pumps, heel raises, LAQ, hip flexion and hip abduction. ASSESSMENT: Patient tolerated gait training, with FWW support and CGA. Distance was limited due to fatigue and general weakness. Patient demonstrates improved ability to complete transfers in p.m. compared to a.m. PLAN: Continue with global strengthening and gait and transfer training for improved mobility. TREATMENT CODE/TIME: Session 1: 35 minutes; 10008, 11945 (09:20) Session 2: 20 minutes; 60592 (13:30)
[2022-05-20] MEDS: Acetaminophen 500 MG TAB PO (14:32)
[2022-05-20] MEDS: Normal Saline Flush 10 ML SYR IVP (16:52)
--- NOTE | 2022-05-20 18:09 | PGE_ITS ---
Date of Service Date of service: 05/20/22 Time of Service: 18:09 Assessment and Plan Assessment and plan (1) CHF (congestive heart failure): Status: Acute Assessment and plan: continue to follow I&O, daily weights limited echo completed The left ventricle is normal size. The left ventricular systolic function is normal. The left ventricular ejection fraction is within the normal range. There is normal left ventricular wall thickness. LVEF is 55% followed by Dr Boswell, See consultation note. Qualifiers: Heart failure type: unspecified Heart failure chronicity: chronic Qualified Code(s): I50.9 - Heart failure, unspecified (2) Gout attack: Status: Acute Assessment and plan: Unable to use colchicine in setting of chronic kidney disease continue prednisone Qualifiers: Gout site: unspecified site Gout etiology: unspecified cause Qualified Code(s): M10.9 - Gout, unspecified (3) Obstructive sleep apnea treated with BiPAP: Status: Acute Assessment and plan: continue home therapy while hospitalized pulmonary following, (4) Chronic anticoagulation: Status: Chronic Assessment and plan: on apixaban for chronic atrial fibrillation. (5) Type II diabetes mellitus: Status: Chronic Assessment and plan: continue diabetic diet with sliding scale coverage ac/hs continue home medications A1C 7.8 in Mar 2022 Qualifiers: Diabetes mellitus intermediate accountant insulin use: with intermediate accountant use Diabetes mellitus complication status: with kidney complications Diabetes mellitus complication detail: with chronic kidney disease Chronic kidney disease stage: stage 3 (moderate) Qualified Code(s): E11.22 - Type 2 diabetes mellitus with diabetic chronic kidney disease; N18.3 - Chronic kidney disease, stage 3 (moderate); Z79.4 - intermediate card tender (current) use of insulin (6) CKD (chronic kidney disease): Status: Chronic Assessment and plan: creatinine stable and at baseline. avoid nephrotoxic drugs. Qualifiers: Chronic kidney disease stage: stage 4 (severe) Qualified Code(s): N18.4 - Chronic kidney disease, stage 4 (severe) (7) Discharge planning issues: Status: Acute Assessment and plan: case management following palliative care consulted for goals of care and to review code status anticipate discharge to fpc facility in setting of significant physical decline and worsening respiratory status since admission, she is adamantly refusing SNF referral at this time. discussed with Dr Hartmann Subjective Subjective Patient reports: no new complaints, feels better, tolerating a regular diet, bowel movement, shortness of breath and afebrile; denies diarrhea, nausea or vomiting Interval history since last seen: Mohan continues to have shortness of breath with exertion; she does report feeling better and is anxious to go home. Exam Const General: cooperative, comfortable and no acute distress Nutritional Appearance: overweight Orientation: alert, awake and oriented x3 HENMT Head: normal to inspection, normocephalic and atraumatic Mouth: oral mucosae normal Chest Chest: normal inspection of the chest Resp Effort & Inspection: normal respiratory effort Auscultation: diminished lung sounds (bases bilaterally) Cardio Rate: regular rate GI Inspection: normal to inspection Palpation: soft Auscultation: normal bowel sounds General: other (marino draining med yellow urine) Neuro General: patient alert, patient awake and patient oriented x3 (at baseline) Cognition: normal cognition Extrem General: normal to inspection and no pedal edema Psych Mental Status: mental status grossly normal Speech and Movement: speech and movement normal Mood: congruent mood Affect: normal affect Objective Last Vital Signs Temp 36.5 C 05/20/22 15:15 Pulse 70 05/20/22 16:00 Resp 16 05/20/22 15:55 BP 154/72 H 05/20/22 15:15 Pulse Ox 99 05/20/22 16:00 Time Spent with Patient Time Spent with Patient: 25-34 minutes Time was spent: preparing to see the patient(eg.review tests), obtaining and/or reviewing separately otained hiistory, ordering medications,tests, procedures, referring, communicating with other health care team coordinator scheduler, indepentently interpreting results, counseling the patient and care coordination
[2022-05-20] MEDS: Insulin Glargine 300 UNITS/3 ML PEN 20 UNITS SC (21:27)
[2022-05-21] VITALS (7 sets, daily range): BP systolic 120–143; BP diastolic 59–78; PULSE 49–97; RESP 2–18; TEMP 35.9–37.1; O2SAT 89–199
[2022-05-21 06:40] LABS: Abs Immature Grans 0.05 10^3/uL (0.0-0.06); Absolute Basophil Count 0.02 10^3/uL (0.0-0.2); Absolute Eosinophil Count 0.03 10^3/uL (0.0-0.7); Absolute Lymphocyte Count 1.43 10^3/uL (1.2-3.4); Absolute Monocyte Count 0.74 10^3/uL (0.1-0.8); Absolute Neutrophil Count 6.56 10^3/uL (1.2-6.7); Basophils % 0.2; Eosinophils % 0.3; HCT 33.6 % (36.0-46.0); HGB 10.8 g/dL (11.2-15.7); Immature Grans % 0.6; Lymphocytes % 16.2; MCH 30.9 pg (27.0-33.0); MCHC 32.1 % (32.0-36.0); MCV 96 fL (80-95); MPV 11.3 fL (8.0-11.0); Monocytes % 8.4; Neutrophils % 74.3; Platelet Count 195 10^3/uL (130-400); RDW 15.5 % (11.7-14.6); RDW-SD 55.4 fL; WBC 8.83 10^3/uL (4.4-10.8)
[2022-05-21 06:59] LABS: Anion Gap 4.8 mmol/L (3-11); CO2 41.2 mmol/L (21.0-32.0); CREATININE 2.7 mg/dL (0.55-1.02); Calcium 9.4 mg/dL (8.5-10.1); Chloride 93 mmol/L (98-107); Estimated GFR 17.84 (mL/min/1.73m2); Glucose 136 mg/dL (74-106); Potassium 4.2 mmol/L (3.5-5.1); Sodium 139 mmol/L (136-145)
[2022-05-21 07:01] LABS: BUN 81 mg/dL (7-18)
[2022-05-21] MEDS: Levalbuterol 1.25 MG/3 ML UPD VIAL UPD ×2 (07:42→20:26)
[2022-05-21] MEDS: Magnesium Oxide 400 MG TAB PO (08:46)
[2022-05-21] MEDS: Pantoprazole 40 MG TABCR PO (08:46)
[2022-05-21] MEDS: Apixaban 5 MG TAB PO ×2 (08:47→20:27)
[2022-05-21] MEDS: amLODIPine 5 MG TAB PO (08:47)
[2022-05-21] MEDS: Calcium 600mg/Vit D 200U TAB 1 TAB PO ×2 (08:47→20:27)
[2022-05-21] MEDS: predniSONE 20 MG TAB 40 MG PO (08:47)
[2022-05-21] MEDS: Docusate Sodium 100 MG CAP PO ×2 (08:48→20:26)
--- NOTE | 2022-05-21 08:51 | CMPROGNOTE_ITS ---
- If Service Date Differs Date of service: 05/21/22 Time of Service: 08:51 Care Management Progress Note S/O: Mohan is sitting in her chair watching TV when CM met with her. She is awake, pleasant and easily engages in conversation. She is having PFT testing today to see if she qualifies for a Trilogy machine. RT is following. No changes to overall discharge plan. Mohan is still planning to discharge home with New [facility] RN/PT/OT when medically ready, she refuses SNF for STR. Mohan lives with her son Abdias, pt he helps her with her ADL's if needed and handles everything. He works nights (8p-7a) and is available during the day. She has CFC Mod. needs and her community support professional is Makayla Flores. Makayla is in the process of getting her a ramp for her home. Per Makayla, Mohan is not eligible for caregiver services and she plans to give her a call personally. Per PT, Mohan is getting around better. She is still planning on transporting via private vehicle with Abdias, and may require a lift assist depending on her mobility level at the time of discharge. A: 76 year old female admitted to [facility] on 05/15/22 for CHF P: Mohan refuses recommendation of SNF for STR. Anticipate, she will discharge home with new [facility] RN/PT/OT and resumption of CFC Mod. Needs services when medically ready. She will transport via private vehicle with son, with lift assist (if indicated). CM will continue to support Mohan and further discharge planning considerations.
[2022-05-21] MEDS: Bumetanide 1 MG/4 ML VIAL 4 MG IVP (10:08)
[2022-05-21] MEDS: Normal Saline Flush 10 ML SYR IVP (10:09)
--- NOTE | 2022-05-21 10:11 | CHAPLAIN ---
When I visited with Mohan yesterday, she said she had been able to stand up yesterday. She is adamant about not going to an SNF even if it is recommended. Mohan had a recent palliative care consult with Dr. De Jesus who asked Mohan if she'd like a visit from the local mailing machine assistant and she said yes. Dr. De Jesus let me know about the request. I'll call the worship to day to let Fr. Mobley know.
--- NOTE | 2022-05-21 10:20 | PT.INTREAT ---
Date of service: 05/21/22 Time of Service: 09:10 PT Notes Visit Reasons: Congestive heart failure Inpatient Physical Therapy Treatment Note [facility] Date: 05/21/2022 PRECAUTIONS: Activity as tolerated, fall SUBJECTIVE: Jane is pleasant and agreeable to participating in PT. She reports that she is feeling better today. She states that she does not want to discharge to a SNF-level rehab, that she would prefer to discharge to home where her and her son have a manageable routine. OBJECTIVE: PAIN: Patient c/o minimal L foot and ankle discomfort with gait training in p.m. BED MOBILITY/TRANSFERS Sit-stand: SBA; (Min A from low-surface of commode) Stand-sit: SBA GAIT Assistive Device: FWW Weight bearing: WBAT B Assist: SBA Distance: 5' x2 in a.m.; 12' in p.m. Deviation: Slow pacing, fatigue, minimal SOB TOILETING: Patient toileted with assist THEREX: Patient was instructed in a LE strengthening program, completed in a seated position, to include: ankle pumps, heel raises, LAQ, hip flexion and hip abduction. ASSESSMENT: Patient tolerated gait training, with FWW support and CGA. Distance was limited due to fatigue and general weakness. Patient demonstrates improved ability to complete transfers in p.m. compared to a.m. PLAN: Continue with global strengthening and gait and transfer training for improved mobility. TREATMENT CODE/TIME: Session 1: 30 minutes; [id number] x2 (09:10) Session 2: 25 minutes; [id number], [id number] (13:00)
--- NOTE | 2022-05-21 12:27 | W.PALPGNOTE ---
Date of service: 05/21/22 Time of Service: 11:15 Assessment and Plan Assessment and plan (1) Gout: Status: Chronic Assessment and plan: Pt with gout flare at time of admission requiring Prednisone. reports gout flare every time she gets sick. Cannot recall any allergy to allopurinol. Consider starting renal dosing of allopurinol as an outpatient once acute flare is completely resolved and she is back home. (2) CKD stage 4 due to type 2 diabetes mellitus: Status: Acute (3) Advanced care planning/counseling discussion: Status: Acute (4) Respiratory failure with hypoxia and hypercapnia: Status: Acute Subjective Subjective Interval history since last seen: Patient seen today by palliative care team for follow up regarding goals of care, CODE STATUS, symptom management and supportive care. Notes reviewed, case discussed with hospitalist. Patient has steadily improved during the week. She has been weaned off of high flow oxygen and now on nasal cannula 4-5 L. Using her home BiPAP at night. Switched off of Bumex drip and now getting twice daily IV diuretic. Physical therapy reports that she is getting stronger and is now able to stand up on her own and walk to the commode and back again. She reports she is feeling better. Very happy that she is getting stronger and able to get to the commode on her own, as now she would feel comfortable going home. She reports that she just had pulmonary function testing and was told by respiratory therapy that she qualifies for trilogy machine. Shortness of breath is back to baseline. Her only discomfort is from Ruiz catheter and she is hoping to get this removed as soon as possible (communicated to hospitalist). Review goals of care: She is adamantly set against going to any rehab facility even for short time. Explains that everyone in my family who goes there dies . Feels she will be safe at home with son there, support from home health, able to call for help on her phone if needed. I took this opportunity to revisit CODE STATUS. Explained that if she were to have a cardiac arrest, revisited low likelihood of resuscitation. In the case of resuscitation, she would likely be so weak she would need to go to rehab facility. Presented theoretical scenario and asked her if she would be willing to go to [facility] in that situation. She said she would. She would be willing to put up with [facility] if it meant she were to continue living. Advanced directive reviewed: Patient does want CPR/resuscitation. However should this result on her requiring ventilatory support, she would only want a time-limited trial of ventilatory support. Patient is consistent with her desire to have CPR in the event of a cardiac arrest. She is glad she came to the hospital for treatment and would come back again should she get sick again. Palliative care team will continue to follow her every 3 months. We will schedule home visit for August. Exam Narrative Exam Narrative: Pleasant, talkative, in no distress sitting in recliner with nasal cannula for oxygen on. Able to speak in complete sentences. Objective Last Vital Signs Temp 36.9 C 05/21/22 11:41 Pulse 97 H 05/21/22 11:41 Resp 16 05/21/22 11:41 BP 120/70 05/21/22 11:41 Pulse Ox 93 05/21/22 11:41 Laboratory Results - last 24 hr 05/21/22 05/21/22 05:23 05:23 WBC 8.83 RBC 3.50 L Hgb 10.8 L Hct 33.6 L MCV 96 H MCH 30.9 MCHC 32.1 RDW 15.5 H Plt Count 195 MPV 11.3 H Immature Gran % 0.6 Neutrophils % 74.3 Lymphocytes % 16.2 Monocytes % 8.4 Eosinophils % 0.3 Basophils % 0.2 Nucleated RBC % 0.0 Absolute Neutrophils 6.56 Absolute Lymphocytes 1.43 Absolute Monocytes 0.74 Absolute Eosinophils 0.03 Absolute Basophils 0.02 Sodium 139 Potassium 4.2 Chloride 93 L Carbon Dioxide 41.2 H Anion Gap 4.8 BUN 81 H* Creatinine 2.7 H Est GFR (CKD-EPI 2020) 17.84 Glucose 136 H Calcium 9.4 Magnesium 2.0
[2022-05-21] MEDS: Insulin Aspart 300 UNITS/3 ML PEN SC ×3 (13:19→20:27)
[2022-05-21 15:17] LABS: Bilirubin Negative (Negative); Blood Moderate (Negative); Clarity Clear (Clear); Glucose Negative (Negative); Ketones Negative (Negative); Leukocyte Esterase Negative (Negative); Nitrite Negative (Negative); Specific Gravity 1.015 (1.005-1.025); Urobilinogen 0.2 mg/dL (Up to 0.2); pH 7.5 (5-8)
[2022-05-21 15:24] LABS: Bacteria Negative HPF (Negative); C & S Indicated? No; Casts 0-2 Hyaline LPF (Negative); Crystals Negative HPF (Negative); Epithelial Cells Rare HPF (Negative); Mucus Negative (Negative); WBC Negative HPF (0-5)
--- NOTE | 2022-05-21 19:29 | W.PM.PROGNOT ---
Date of Service Date of service: 05/21/22 Time of Service: 10:00 Assessment and Plan Assessment and plan (1) CHF (congestive heart failure): Status: Acute Assessment and plan: continue to follow I&O, daily weights limited echo completed The left ventricle is normal size. The left ventricular systolic function is normal. The left ventricular ejection fraction is within the normal range. There is normal left ventricular wall thickness. LVEF is 55% followed by Dr Boswell, See consultation note. Qualifiers: Heart failure type: unspecified Heart failure chronicity: chronic Qualified Code(s): I50.9 - Heart failure, unspecified (2) Gout attack: Status: Acute Assessment and plan: Unable to use colchicine in setting of chronic kidney disease continue prednisone Qualifiers: Gout site: unspecified site Gout etiology: unspecified cause Qualified Code(s): M10.9 - Gout, unspecified (3) Obstructive sleep apnea treated with BiPAP: Status: Acute Assessment and plan: continue home therapy while hospitalized pulmonary following, (4) Chronic anticoagulation: Status: Chronic Assessment and plan: on apixaban for chronic atrial fibrillation. (5) Type II diabetes mellitus: Status: Chronic Assessment and plan: continue diabetic diet with sliding scale coverage ac/hs continue home medications A1C 7.8 in Mar 2022 Qualifiers: Diabetes mellitus termite control service representative insulin use: with termite control service representative use Diabetes mellitus complication status: with kidney complications Diabetes mellitus complication detail: with chronic kidney disease Chronic kidney disease stage: stage 3 (moderate) Qualified Code(s): E11.22 - Type 2 diabetes mellitus with diabetic chronic kidney disease; N18.3 - Chronic kidney disease, stage 3 (moderate); Z79.4 - exterminator (current) use of insulin (6) CKD (chronic kidney disease): Status: Chronic Assessment and plan: creatinine stable and at baseline. avoid nephrotoxic drugs. Qualifiers: Chronic kidney disease stage: stage 4 (severe) Qualified Code(s): N18.4 - Chronic kidney disease, stage 4 (severe) (7) Discharge planning issues: Status: Deleted Assessment and plan: case management following palliative care consulted for goals of care and to review code status declines [facility] facility despite significant physical decline and worsening respiratory status since admission, she is adamantly refusing SNF referral at this time. discussed with Dr Sanchez Subjective Subjective Patient reports: no new complaints, feels better, pain is less, tolerating a regular diet and afebrile; denies diarrhea or vomiting Interval history since last seen: Declines short term rehab, would like to go home with continued home health services Exam Const General: cooperative, comfortable and no acute distress Nutritional Appearance: overweight Orientation: alert, awake and oriented x3 HENMT Head: normal to inspection, normocephalic and atraumatic Mouth: oral mucosae normal Chest Chest: normal inspection of the chest Resp Effort & Inspection: normal respiratory effort Auscultation: diminished lung sounds (bases bilaterally) Cardio Rate: regular rate GI Inspection: normal to inspection Palpation: soft Auscultation: normal bowel sounds General: other (marino draining med yellow urine) Neuro General: patient alert, patient awake and patient oriented x3 (at baseline) Cognition: normal cognition Psych Mental Status: mental status grossly normal Speech and Movement: speech and movement normal Mood: congruent mood Affect: normal affect Objective Last Vital Signs Temp 37.1 C 05/21/22 15:43 Pulse 82 05/21/22 15:43 Resp 18 05/21/22 15:43 BP 121/59 L 05/21/22 15:43 Pulse Ox 96 05/21/22 15:43 Laboratory Results - last 24 hr 05/21/22 05/21/22 05/21/22 05:23 05:23 14:39 WBC 8.83 RBC 3.50 L Hgb 10.8 L Hct 33.6 L MCV 96 H MCH 30.9 MCHC 32.1 RDW 15.5 H Plt Count 195 MPV 11.3 H Immature Gran % 0.6 Neutrophils % 74.3 Lymphocytes % 16.2 Monocytes % 8.4 Eosinophils % 0.3 Basophils % 0.2 Nucleated RBC % 0.0 Absolute Neutrophils 6.56 Absolute Lymphocytes 1.43 Absolute Monocytes 0.74 Absolute Eosinophils 0.03 Absolute Basophils 0.02 Sodium 139 Potassium 4.2 Chloride 93 L Carbon Dioxide 41.2 H Anion Gap 4.8 BUN 81 H* Creatinine 2.7 H Est GFR (CKD-EPI 2020) 17.84 Glucose 136 H Calcium 9.4 Magnesium 2.0 Urine Color Yellow Urine Clarity Clear Urine pH 7.5 Ur Specific Sandwich 1.015 Urine Protein 30 H Urine Ketones Negative Urine Blood Moderate H Urine Nitrite Negative Urine Bilirubin Negative Urine Urobilinogen 0.2 Ur Leukocyte Esterase Negative Urine RBC 10-20 H Urine WBC Negative Ur Epithelial Cells Rare Urine Crystals Negative Urine Bacteria Negative Urine Casts 0-2 Hyaline Urine Mucus Negative Ur Culture Indicated? No Urine Glucose Negative Time Spent with Patient Time Spent with Patient: 25-34 minutes Time was spent: preparing to see the patient(eg.review tests), obtaining and/or reviewing separately otained hiistory, ordering medications,tests, procedures, referring, communicating with other health client care manager, indepentently interpreting results, counseling the patient and care coordination
[2022-05-21] MEDS: Insulin Glargine 300 UNITS/3 ML PEN 20 UNITS SC (20:27)
[2022-05-22 07:58] VITALS: PULSE 58; RESP 20; RESP 8; O2SAT 89
[2022-05-22] MEDS: Levalbuterol 1.25 MG/3 ML UPD VIAL UPD ×2 (07:58→11:36)
[2022-05-22 08:01] VITALS: BP 157/70; PULSE 68; RESP 18; TEMP 36.3; O2SAT 96
[2022-05-22 08:05] VITALS: PULSE 57; RESP 8; O2SAT 100
[2022-05-22] MEDS: Polyethylene Glycol 3350 17 GM PACKET PO (08:24)
[2022-05-22] MEDS: Apixaban 5 MG TAB PO (08:24)
[2022-05-22] MEDS: Magnesium Oxide 400 MG TAB PO (08:24)
[2022-05-22] MEDS: amLODIPine 5 MG TAB PO (08:25)
[2022-05-22] MEDS: predniSONE 20 MG TAB 40 MG PO (08:25)
[2022-05-22] MEDS: Pantoprazole 40 MG TABCR PO (08:25)
[2022-05-22] MEDS: Calcium 600mg/Vit D 200U TAB 1 TAB PO (08:25)
[2022-05-22] MEDS: Docusate Sodium 100 MG CAP PO (08:25)
[2022-05-22] MEDS: Nystatin POWDER 15 GM JAR TP ×2 (10:14→13:16)
--- NOTE | 2022-05-22 10:50 | CMPROGNOTE_ITS ---
- If Service Date Differs Date of service: 05/22/22 Time of Service: 10:50 Care Management Progress Note S/O: Mohan is sitting in her chair watching TV when CM met with her. She is awake, pleasant and easily engages in conversation. Per pt she had PFT testing yesterday and was told that he qualifies for a Trilogy machine. RT is following. No changes to overall discharge plan. Mohan is still planning to discharge home with New [facility] RN/PT/OT when medically ready, she refuses SNF for STR. Mohan lives with her son Abdias, pt he helps her with her ADL's if needed and handles everything. He works nights (8p-7a) and is available during the day. She has [employer] Mod. needs and her community theater actor is Makayla Flores. Makayla is in the process of getting her a ramp for her home. Per Makayla, Mohan is not eligible for caregiver services and she plans to give her a call personally. Per PT, Mohan is getting around better. She is still planning on transporting via private vehicle with Abdias, and may require a lift assist depending on her mobility level at the time of discharge. Palliative will continue to follow as an outpatient. A: 76 year old female admitted to [facility] on 05/15/22 for CHF P: Mohan refuses recommendation of SNF for STR. Anticipate, she will discharge home with new [facility] RN/PT/OT and resumption of CFC Mod. Needs services when medically ready. She will transport via private vehicle with son, with lift assist (if indicated). CM will continue to support Mohan and further discharge planning considerations.
[2022-05-22 11:36] VITALS: PULSE 60; RESP 20; RESP 8; O2SAT 96
[2022-05-22 11:42] VITALS: PULSE 59; O2SAT 100
--- NOTE | 2022-05-22 12:14 | DSE_ITS ---
Date of service: 05/22/22 Time of Service: 12:18 DS: Diagnosis Discharge Diagnosis (1) Gout: Status: Chronic Asessment and Plan: treated with steroids (2) CKD stage 4 due to type 2 diabetes mellitus: Status: Acute Asessment and Plan: monitor outpatient labs, avoid nephrotoxic drugs Status post creatinine is elevated at 2.7 above her baseline which is due to aggressive diuresis while hospitalized. Her Bumex was placed on hold yesterday and today she should resume home dosing tomorrow and will have labs followed closely with next lab draw WednesdayMay 25 Further medication recommendations and monitoring per primary care provider (3) Respiratory failure with hypoxia and hypercapnia: Status: Acute Asessment and Plan: order placed for trilogy It is medically necessary that the patient receive NIV therapy via the Trilogy CHARLES in the home to treat Chronic Respiratory Failure with hypoxia and hypercapnia secondary to Restrictive Lung disease secondary to Obesity Hypoventilation Syndrome with a underlying YARELY and NO other standard devices such as a traditional/standard CPAP or Bi-PAP as it would not be the most effective device and has been ruled out and tried and failed due to the following: ?A Trilogy CHARLES NIV is the optimum therapy device as it would be the most effective in managing the current co-morbidities as a long-term plan. The Trilogy CHARLES NIV via AVAPS AE mode exclusive to only this device will be used during the sleeping hours this setting would treat any underlying YARELY but also will have the added benefits of meeting the ventilation needs including: a varying tidal volumes and minute ventilation based on ideal weight, it will decrease work of breathing, decreases carbon dioxide retention, increases oxygenation, allowing for a long respiratory time to reduce the effects of flow limitation, air trapping and breath stacking, this will improve the overall quality of life and reduce further hospitalizations that may occur without p dotty treatment. The patient can also use the secondary mode that is exclusive to the Trilogy CHARLES NIV device called Mouth Piece Ventilation (MPV) this would be used during the daytime waking hours to help with shortness of breath via a mouth piece. The Trilogy CHARLES operates on a battery which will allow for continued usage such as during power outages or for MD appointments etc. as lapse or inability to utilize the therapy may result in a life-threatening consequence this [place] frequent power outages, a traditional CPAP OR BI-PAP unit does not have this function and would cease to operate leaving this patient without adequate ventilation. The Trilogy CHARLES is also equipped with alarms that are not found in standard bi-pap device that can alert the caregiver in the event of an emergency. Lastly treatment of NIV via the Trilogy CHARLES at home is absolutely medically necessary and will allow the patient to remain treated safely at home for the multiple underlying chronic medically issues. Refusal to support this prescription in failure to acknowledge basic standards that will provide a better quality of life, cut down on respiratory related admissions and potentially again prevent a catastrophic event or from occurring in the home. COPD does not contribute to this patient?s pulmonary limitations. Discharge Plan Disposition Patient Disposition: Home W/Home Health Services Condition: Stable Discharge Details Reason For Visit: CHF Admit Date/Time: 05/15/22 13:42 Admit Provider: Sid Hartmann Attending Provider: Sid Hartmann Primary Care Provider: Laverne Sung Hospital Course Hospital Course: This is a 76-year-old female patient with complex medical history including obstructive sleep apnea treated with BiPAP congestive heart failure with preserved ejection fraction at 50 to 55% chronic anticoagulation secondary to atrial fibrillation diabetes mellitus type 2 with a hemoglobin A1c of 7.8 who presented to the emergency department with hypoxic respiratory failure thought to be multifactorial. Congestive heart failure was treated with aggressive diuresis ultimately requiring a Bumex drip. She had multiple episodes of hypercarbic episodes while hospitalized when she was off her BiPAP, improved back on it.. She was seen by cardiology and pulmonology and pulmonology recommendations are for trilogy at discharge. She did undergo pulmonary function testing on May 15, 2022. She was seen by palliative care to assist with goals of care and CODE STATUS discussion and she is quite adamant about returning home and remaining a full code. Physical therapy followed closely and she was safely reambulated and plan will be for discharge to home with home health nursing PT and OT. She is discharged to home by private vehicle discharge is discussed by Dr Sanchez Home Meds and New Rx's Prescriptions: Continued insulin aspart U-100 [Novolog FlexPen U-100 Insulin] 100 unit/mL (3 mL) insulin pen See Rx Instructions subcut AC MDD 30 units Qty: 90 3RF Rx Instructions: 2-10 units subcut before meals; For diabetes as directed with meals sliding scale: 100:0units 101-150: 2 units 151-200: 4 units 201-250: 6 units 251-300: 8 units over 300: 10 units acetaminophen [Tylenol Extra Strength] 500 mg tablet 500 mg PO Q6H PRN amlodipine 5 mg tablet 5 mg PO DAILY Qty: 90 3RF Rx Instructions: Blood pressure magnesium oxide 400 mg (241.3 mg magnesium) tablet 400 mg PO DAILY Qty: 90 3RF Rx Instructions: Low magnesium docusate sodium [Colace] 100 mg capsule 100 mg PO BID Eliquis 5 mg tablet 5 mg PO BID Qty: 180 3RF Hold Instructions: Resume on 03/18/22. pantoprazole [Protonix] 40 mg tablet,delayed release (DR/EC) 40 mg PO DAILY Qty: 90 3RF Rx Instructions: h/o GI bleed, stomach protection cyanocobalamin (vitamin B-12) 1,000 mcg/mL kit 1,000 mcg subcut QMONTH Qty: 1 11RF Rx Instructions: May self-administer at home for low B12 bumetanide 1 mg tablet 1 mg PO BID Qty: 180 3RF Rx Instructions: Diuretic for heart and swelling or as directed fluticasone propionate 50 mcg/actuation spray,suspension 1 spray NS DAILY PRN (Reason: allergy symptoms) Qty: 15.8 0RF insulin glargine 100 unit/mL (3 mL) insulin pen 32 unit subcut DAILY MDD 50 units/24 hours Qty: 45 3RF Calcium 600 with Vitamin D3 600 mg(1,500mg) -400 unit Tablet,Chewable 1 tab PO BID No Action (DME) FreeStyle Bradley 2 Sensor Kit See Rx Instructions .ROUTE .MEDSUPPLY Qty: 2 11RF Rx Instructions: As directed; on insulin AC & HS for goal A1C 8% (DME) BD Eclipse Luer-Timi 3 mL 23 x 1 syringe See Rx Instructions .ROUTE .MEDSUPPLY Qty: 15 0RF Rx Instructions: for use with monthly self administered B12 injections (DME) Oxygen Tank See Rx Instructions .ROUTE .MEDSUPPLY Qty: 1 0RF Rx Instructions: 2-5L via NC continuous (DME) pen needle, diabetic [BD Ultra-Fine Mini Pen Needle] 31 gauge x 3/16 needle See Rx Instructions .ROUTE .MEDSUPPLY Qty: 100 6RF Rx Instructions: for insulin administration qid dx E11.22 #360 Refill 3 atorvastatin 80 mg tablet 80 mg PO QHS Qty: 90 3RF Rx Instructions: Cholesterol Discharge Instructions Instructions: Heart Failure (DC) Stand Alone Forms: Nursing Discharge Form Referrals: Laverne Sung NP [Primary Care Provider] - 06/04/22 11:00 am (Appointment is with ) Germania Fulton PA [[employer]] - 07/22/22 12:45 pm Activity:: Activity as Tolerated Equipment/Supplies:: No Equipment Needed Diet:: As Tolerated Discharge Orders Discharge Orders: Discharge Order (Routine); Ordered 05/22/22 Ordered By: Myah Victor Other Ambulatory Orders: Basic Metabolic Panel (Routine) Timeframe: 20220525 Location: None Selected Ordered By: Myah Victor Complete Blood Count w/Diff (Routine) Timeframe: 20220525 Location: None Selected Ordered By: Myah Victor Discharge Data Discharge Date/Time-TO BE ENTERED AT DEPARTURE: 05/22/22 16:10 DS: Summary Time Spent with Patient providing and/or coordinating discharge services: Greater than 30 minutes Status at Discharge Functional status at discharge: uses cane/walker Overall status at discharge: patient is progressing back to baseline Mental Status: mental status grossly normal Speech and Movement: speech and movement normal Mood: congruent mood Affect: normal affect Exam Const General: cooperative, comfortable and no acute distress Nutritional Appearance: overweight Orientation: alert, awake and oriented x3 HENMT Head: normal to inspection, normocephalic and atraumatic Mouth: oral mucosae normal Chest Chest: normal inspection of the chest Resp Effort & Inspection: normal respiratory effort Auscultation: diminished lung sounds (bases bilaterally) Cardio Rate: regular rate GI Inspection: normal to inspection Palpation: soft Auscultation: normal bowel sounds General: other (marino draining med yellow urine) Neuro General: patient alert, patient awake and patient oriented x3 (at baseline) Cognition: normal cognition Extrem General: normal to inspection and no pedal edema Psych Mental Status: mental status grossly normal Speech and Movement: speech and movement normal Mood: congruent mood Affect: normal affect DS: Data Vitals/I&O Vitals and I&O: Vital Signs Temperature 36.3 C L 05/22/22 08:01 Temperature Source Tympanic 05/22/22 08:01 Pulse 59 L 05/22/22 11:42 Pulse Rhythm Regular 05/22/22 11:09 Pulse 59 L 05/15/22 14:10 Respiratory Rate 20 05/22/22 11:36 Respiratory Effort Normal, Non-Labored 05/22/22 11:09 Respiratory Depth Normal 05/22/22 11:09 Respiratory Pattern Normal 05/22/22 11:09 Blood Pressure 157/70 H 05/22/22 08:01 Blood Pressure Mean 84 05/15/22 14:00 Blood Pressure Position Sitting 05/15/22 09:51 Pulse Oximetry 100 05/22/22 11:42 Oxygen Delivery Method Nasal Cannula 05/22/22 11:42 Oxygen Flow Rate 3 05/22/22 11:42 Fraction of Inspired Oxygen (FIO2) 89 05/22/22 08:00 Pain Level 0 05/22/22 08:01 Comment RN informed of VS 05/20/22 15:15 Intake & Output 05/21/22 05/22/22 05/22/22 23:59 11:59 23:59 Output Total 600 / 2150 800 / 800 Balance -600 / -1886.6 -800 / -800 Output: Urine 600 / 2150 800 / 800 Other: Urine Color Yellow Yellow Urine Appearance Clear Clear Urine Odor Normal Normal Comment could not measure void Stool Size Small Small Stool Characteristics Soft Soft Voiding Methods Bedside Commode Bedside Commode Data Completed and Pending Labs on day of discharge: Labs from last 24 hours 05/21/22 14:39 Urine Color Yellow Urine Clarity Clear Urine pH 7.5 Ur Specific [place] 1.015 Urine Protein 30 H Urine Ketones Negative Urine Blood Moderate H Urine Nitrite Negative Urine Bilirubin Negative Urine Urobilinogen 0.2 Ur Leukocyte Esterase Negative Urine RBC 10-20 H Urine WBC Negative Ur Epithelial Cells Rare Urine Crystals Negative Urine Bacteria Negative Urine Casts 0-2 Hyaline Urine Mucus Negative Ur Culture Indicated? No Urine Glucose Negative 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 2 diabetes mellitus (Acute) Weakness generalized (Acute) Advanced care planning/counseling discussion (Acute) Respiratory failure with hypoxia and hypercapnia (Acute) Discharge planning issues (Acute) Obstructive sleep apnea treated with BiPAP (Acute) Hypoxia (Acute) Trigger finger, right middle finger (Acute) Injection: 05/04/2022 Right carpal tunnel syndrome (Acute) CHF (congestive heart failure) (Acute 02/23/14) Preserved EF (10/2020 & 08/2021 ECHO) Obstructive sleep apnea (Chronic 02/23/14) Sleep Med Referral, 04/17/2019-->Very severe YARELY; CPAP ([facility]) with continuous O2, new Panda C-Pap 01/2021 Type II diabetes mellitus (Chronic) Hypertension (Chronic) Hyperlipidemia (Chronic) Atrial fibrillation (Chronic) Apixaban Anemia (Chronic) Pulmonary hypertension (Chronic) CKD (chronic kidney disease) (Chronic) Dependence on supplemental oxygen (Chronic) YARELY + Pulm HTN Palliative care status (Chronic) Full code status (Chronic) Chronic low back pain (Chronic 07/24/15) CT-lumbar spine 2019-- Severe multilevel degenerative changes in the lumbar spine resulting in neural foraminal and central spinal canal stenosis. Chronic anticoagulation (Chronic) AF--Apixaban Risk for falls (Chronic) Sedentary lifestyle (Chronic) B12 deficiency (Chronic) Start B12 injections; elevated MCV Gout attack (Acute) R podagra, first attach 10/2020-->treated with colchine, effective Chronic respiratory failure with hypercapnia (Chronic) Obesity hypoventilation syndrome (Chronic) Obesity + Severe YARELY + Chronic Hypercapnia Dependent on walker for ambulation (Chronic) Hypomagnesemia (Acute ~07/2021) Mild mitral valve regurgitation (Acute ~08/2021) ECHO Trace tricuspid valve regurgitation (Acute ~08/2021) ECHO Medical History Adult body mass index 50.0-59.9 Carpal tunnel syndrome, bilateral (12/17/16) Dietary counseling reviewed sodium levels in her food, how to count mg, goal of 1500 mg daily due to CHF 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 Folate deficiency Low 12/2018; resolved 05/2019 labs; discontinued 02/05/2020 h/o elbow fx H/O fracture of nose H/O rotator cuff tear Heme + stool [facility] Upper GI Endoscopy Peptic Duodenitis (pathology report); repeat hemoccults NEG 11/2019 HTN (hypertension) Insulin dependent diabetes mellitus Iron deficiency EGD 05/23/19 at [facility]; discont supp iron & vit c 02/05/2020; Hgb stable and iron constipating; she will obtain dietarily Lipoma Lipoma of arm YARELY (obstructive sleep apnea) Peptic ulcer of duodenum [facility] Path reports upper endoscopy; RX Carafate Renal calculi Non obstructive per CT Restrictive lung disease (~03/2014) PFTs validated 04/04/2014-->see scanned docs Sciatica of right side without back pain RX Medrol Spinal stenosis, lumbar Surgical History Biopsy, Temporal Artery (01/18/15) DR.C YOUNG Colonoscopy - MAC (08/14/16) History of carpal tunnel repair Left- 1998 Right- 2017 History of shoulder surgery Right shoulder repair - 2004 History of total abdominal hysterectomy and bilateral salpingo-oophorectomy (~02/1999) History of total bilateral knee replacement History of total knee arthroplasty bilateral Family History Mother Heart disease Father Heart disease Lung cancer Brother Heart disease AAA (abdominal aortic aneurysm, ruptured) Brother Obesity Son No problems noted. Daughter Stillborn, abnormal Daughter No problems noted. Social History Smoking/Tobacco Use Status: Never Second Hand Exposure: Yes Smoking risk assessment performed?: Yes Alcohol Intake: former Details: never drank heavily but her husbands did Drug use: Never Substance use type: does not use Adopted: No Caregiver/Support person: Yes Foster care: No Household members: children Housing: house Number of Children: 2 number of grandchildren: 8 Communication Needs: Corrective Lenses Education Level: middle school Do you need help understanding health information?: Always current occupation: Retired- [employer] Pets and animals: Yes Pets and animals: cat(s) Sexually active: No Do you think of yourself as: straight/heterosexual Current gender identity: female What is your relationship status?: How often do you talk on the phone with friends or family?: once per week How often do you get together with friends or relatives?: once per week Panel score (0-1 are the most socially isolated patients): 0 What type of physical activity do you participate in: none and sedentary lifestyle Special jakob needs: No Agree to transfusion: Yes Seatbelt use: always In current or past relationships, have you been: made to feel afraid Do you feel safe at home: Yes Do you feel safe in your relationship?: Yes Additional Social history: per preop: Lives with son Abdias in house trailer. He works. He never left home. She is on home oxygen. Spends most of her day watching TV, sitting on couch. Has a cat. Never smoked. Has been 3 times. 2 husbands have , from one. Daughter lives in [place] with her 8 kids. Time Spent with Patient Time Spent with Patient: 45-69 minutes Time was spent: preparing to see the patient(eg.review tests), obtaining and/or reviewing separately otained hiistory, ordering medications,tests, procedures, referring, communicating with other health personal caregiver, indepentently interpreting results, counseling the patient and care coordination
--- NOTE | 2022-05-22 12:22 | PT.INTREAT ---
Date of service: 05/22/22 Time of Service: 10:28 PT Notes Visit Reasons: Congestive heart failure Inpatient Physical Therapy Treatment Note [facility] Date: 05/22/2022 PRECAUTIONS: Activity as tolerated, fall SUBJECTIVE: Jane is pleasant and agreeable to participating in PT. She reports that she is feeling better today and that she hopes to discharge to home later today. OBJECTIVE: PAIN: No c/o pain BED MOBILITY/TRANSFERS Sit-stand: SBA Stand-sit: SBA GAIT Assistive Device: FWW Weight bearing: WBAT B Assist: SBA Distance: 15' + 10' + 5' Deviation: Slow pacing TOILETING: Patient toileted with assist STAIRS: Up 3x4 and down 2x6 using B rails and a step-to pattern with SBA ASSESSMENT: Patient tolerated a progression in gait distance with FWW support and SBA. She continues to tolerate only limited distances at this time, likely due to general weakness and deconditioning. Patient demonstrates improved ability to complete transfers and was able to tolerate stair negotiation. PLAN: Patient to discharge to home later today, per provider. Recommend follow up with PT upon discharge. TREATMENT CODE/TIME: 28 minutes; 11090 x2 (10:28)
[2022-05-22] MEDS: Insulin Aspart 300 UNITS/3 ML PEN SC (12:32)
--- NOTE | 2022-05-22 12:42 | PDOC.HHF2F_ITS ---
Home Health Referral Home Health Orders Clinical synopsis of why skilled professionals are needed: hypoxic respiratory failure, super morbid obesity, ambulatory dysfunction Medical diagnosis necessitation home health referral: obesity hypoventilation, congestive heart failure, obstructive sleep apnea, hypercarbic resp failure Registered Nurse: Check all that apply Instruct on new or changed medication(s)/assess compliance: Ordered Assess for exacerbation of medical condition, instruct patient/caregivers on signs and symptoms to report for early detection: Ordered (congestive heart failure, hypoxic respiratory failure) Other: evaluate new respiratory device (trilogy) and its effectiveness Physical Therapist: Check all that apply Increase strength & endurance for safe mobility at home: Ordered To design/establish home maintenance program: Ordered Fall reduction therapy program for patient with history of frequent falls: Ordered Home safety evaluation and teaching/gait training including stair management (if applicable): Ordered Occupational Therapist: Evaluate and treat for patient unable to perform ADL/IADL/self-care: Ordered Upper extremity strengthening, range and motion: Ordered Home Bound Status Requires the aid of supportive device (check all that apply): Other (trilogy) Describe why leaving home would require a considerable and taxing effort: Requires frequent rest periods and Oxygen Encounter Date and Reason: I certify that a FTF encounter for this patient was performed on May 22, 2022 and that such encounter was related to the primary reason the patient requires home health services. The encounter was conducted in the following manner: * By me as the certifying physician, ROLLER SKATE REPAIRER, PA or * By an inpatient physician, ROLLER SKATE REPAIRER or PA during an inpatient stay who communicated findings to me, Certification And Authentication I certify that I composed the above information based on my clinical judgment relating to this patient's medical condition and, if applicable, clinical findin gs communicated to me by the NPP or inpatient physician who performed the FTF encounter. Name of Provider that will be monitoring home health services: Laverne Sung
--- NOTE | 2022-05-22 15:13 | CMDISCH_ITS ---
- If Service Date Differs Date of service: 05/22/22 Time of Service: 15:13 LACE Index Scoring Tool - Questions: Length of Stay (in days): 7 - 13 Acuity (Admit via E.D.?): Yes Comorbidities: Diabetes w/o Complication, Congestive Heart Failure, Chronic Pulmonary Disease (Chronic respiratory failure with hypercapnia), Liver or Renal Disease E.D. Visits: 2 - Answers: Total Score: 15 Risk of Readmission: High Risk Care Management Discharge Reason for Hospitalization: CHF Discharge Plan: Mohan is discharged home with New [facility] services and resumption [employer] services. She is driven via private vehicle with her son Abdias. Mohan will follow up with community providers and discharge plan of care as prescribed. Patient/Family Education Needs: Review discharge instructions, limitations, medications and plan to follow up with community providers. Discuss ask me three and goals of self care. Services Needed at Discharge: Home Health Care Services (New [facility] RN/PT/OT, CM notified [facility] Resume [employer] services, CM notified Makayla Flores at [facility].)
[2022-05-22 16:00] VITALS: BP 133/80; PULSE 64; RESP 18; TEMP 36.6; O2SAT 94
--- NOTE | 2022-05-25 08:45 | INDS_ITS ---
Date of service: 05/22/22 PT Notes Visit Reasons: Congestive heart failure Physical Therapy Inpatient Discharge Summary Date: 05/22/22 Service: 05/16/2022 through 05/22/2022 This is a clinical summary of care provided for the duration of dates listed above. No charge was made in the completion of this documentation. Referring Doctor: Myah Victor PT Orders: PT CONSULT: Non-urgent Precautions: Fall. Standard. Patient Profile/Admitting Diagnosis:?Mohan is 76 yo female that presented to the ER on 05/15/22 for shortness of breath. She is on 4L oxygen at baseline and has bilateral leg edema. Being treated for congestive heart failure. PMHX: See EMR Social History/Home Situation: Lives with son in mobile home, has 4 WING with bilateral rails, on 4L O2 at baseline. Equipment Owned/DME: FWW, cane Subjective:? NT. See most recent PEDIATRIC LICENSED PRACTICAL NURSE notes. Objective:? General Observation: NT. See most recent PEDIATRIC LICENSED PRACTICAL NURSE notes. Mental Status: NT. See most recent PEDIATRIC LICENSED PRACTICAL NURSE notes. Pain: NT. See most recent PEDIATRIC LICENSED PRACTICAL NURSE notes. ROM: Right Upper Extremity: Shoulder Flexion WFL. Shoulder abduction WFL. Elbow flexion WFL. Wrist flexion WFL. Opening and closing of hand WFL. Left Upper Extremity: Shoulder Flexion WFL. Shoulder abduction WFL. Elbow flexion WFL. Wrist flexion WFL. Opening and closing of hand WFL. Right Lower Extremity: Hip flexion WFL. Hip abduction WFL. Knee flexion WFL. Ankle dorsiflexion WFL. Ankle plantarflexion WFL. Left Lower Extremity: Hip flexion WFL. Hip abduction WFL. Knee flexion WFL. Ankle dorsiflexion WFL. Ankle plantarflexion WFL. Strength: Right Upper Extremity: Shoulder flexors 5/5. Shoulder abductors 5/5. Elbow flexors 5/5. Elbow extensors 5/5. 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 Left Upper Extremity: Shoulder flexors 5/5. Shoulder abductors 5/5. Elbow flexors 5/5. Elbow extensors 5/5. 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 Right Lower Extremity: Hip flexors 5/5. Knee flexors 5/5. Knee extensors 5/5. Ankle dorsiflexors 5/5. Ankle plantarflexors 5/5. Left Lower Extremity: Hip flexors 5/5. Knee flexors 5/5. Knee extensors 5/5. Ankle dorsiflexors 5/5. Ankle plantarflexors 5/5. Sensation:?Intact as to pain and pressure on bilateral lower extremities. BED MOBILITY/TRANSFERS? Sit-stand: SBA ? Stand-sit: SBA ? Gait:? Assistive Device: FWW ? Weight bearing: WBAT B Assist: SBA ? Distance: 15' + 10' + 5'? Deviation: Slow pacing ? TOILETING:? Patient toileted with assist ? STAIRS: Up 3x4 and down 2x6 using B rails and a step-to pattern with SBA? Balance:? Static Sitting: Normal Dynamic Sitting: Good Static Standing: Good Dynamic Standing: Poor Special Tests: Mobility Limitations Standardized Measure [facility] 6 clicks Basic Mobility Inpatient Short Form: Raw Score: 18 ? CMS Score: 47% NT. See most recent PEDIATRIC LICENSED PRACTICAL NURSE notes. Assessment: Patient presents with clinical signs and symptoms consistent with current/admitting diagnoses that have resulted to mobility limitations, gait instability, generalized weakness, and impairment of motor control as demonstrated by the following impairment level findings: 1. Decreased strength to all major muscle groups 2. Impaired sitting/standing balance 3. Impaired activity tolerance 4. Limitation of joint range of motion in right shoulder Impairments are contributing to the following functional limitations: 1. Dependent bed mobility skills 2. Increased dependence with transfers 3. Inability to safely ambulate without assistive device and physical assistance 4. Increase completion time for mobility ADL performance 5. Increased fall risk 6. Inability to negotiate steps alone safely Goals: Goals x1 week 1. Supine-Sit: 1 person min A MET 2. Sit-Supine: 1 person min A MET 3. Sit-Stand: independent NOT MET 4. Stand-Sit: independent NOT MET 5. Bed-Chair: independent NOT MET 6. Chair-Bed: independent NOT MET NOT MET 7. Independent gait on level surface with use of least restrictive device for at least 100 feet NOT MET 8. Good static and dynamic standing balance/tolerance NOT MET 9. Independent stair negotiation while holding onto bilateral rails for at least 4 steps without report of pain nor dyspnea NOT MET Discharge Plan DISCHARGE RECOMMENDATIONS: Home with HH services vs SNF for continued rehabilitation depending on mobility progress TREATMENT CODE/TIME: NC Thank you for the opportunity to participate in the care of this patient. Ernestine Nieto PT, DPT, CLT [facility] [place], [place]
== END 2022-05-22 16:10 | disposition home health service (06) | DRG 291 ==
LOC: ER 13:41 → MS 14:32
PROVIDERS: Nurse Practitioner Acute Care; Nurse Practitioner Family; Student in an Organized Health Care Education/Training Program; Admitting Provider Internal Medicine; Emergency Provider Emergency Medicine; PCP Nurse Practitioner Adult Health; Visit Provider Internal Medicine
DX: I13.0 Hypertensive heart and chronic kidney disease with heart failure and stage 1 through stage 4 chronic kidney disease, or unspecified chronic kidney disease (principal); J96.01 Acute respiratory failure with hypoxia; J96.02 Acute respiratory failure with hypercapnia; E66.2 Morbid (severe) obesity with alveolar hypoventilation; Z68.41 Body mass index [BMI] 40.0-44.9, adult; N18.4 Chronic kidney disease, stage 4 (severe); I50.30 Unspecified diastolic (congestive) heart failure; E11.22 Type 2 diabetes mellitus with diabetic chronic kidney disease; E78.5 Hyperlipidemia, unspecified; I48.91 Unspecified atrial fibrillation; Z79.01 Long term (current) use of anticoagulants; D64.9 Anemia, unspecified; I27.20 Pulmonary hypertension, unspecified; Z99.81 Dependence on supplemental oxygen; G89.29 Other chronic pain; M54.50 Low back pain, unspecified; M48.061 Spinal stenosis, lumbar region without neurogenic claudication; E53.8 Deficiency of other specified B group vitamins; I34.0 Nonrheumatic mitral (valve) insufficiency; E83.42 Hypomagnesemia; Z79.4 Long term (current) use of insulin; I50.810 Right heart failure, unspecified; M10.9 Gout, unspecified
CPT/HCPCS: 36415; 51702; 80048; 80053; 82805; 87637; 93005; 93306; 93308; 96374; 97110; 97162; 97530; 99221; 99285; 36600; 71045; 81003; 81015; 83735; 83880; 84484; 85025; 85379; 93010; 94010; 94640; 94660; 94760; 99223; 99232; 99233; 99239; J7512; J7614

== ENCOUNTER → 2022-05-18 07:47 | Outpatient (BNVA) | payer MEDICARE, SELFPAY | PROVIDERS: PCP Nurse Practitioner Adult Health; Referring Provider Nurse Practitioner Adult Health; Visit Provider Internal Medicine Cardiovascular Disease ==

== ENCOUNTER 2022-05-23 07:35 | Emergency (ER) | payer MEDICARE, SELFPAY ==
[2022-05-23] VITALS (20 sets, daily range): BP systolic 129–151; BP diastolic 61–79; PULSE 45–70; RESP 13–25; TEMP 36.8; O2SAT 95–100
--- NOTE | 2022-05-23 08:00 | DI.RAD_ITS ---
Exam(s) XR TIB/FIB RT EXAM: XR TIB/FIB RT CLINICAL HISTORY: fall, leg pain. TECHNIQUE: 2D digital imaging was performed. Two views. COMPARISON: CR,XR XR FEMUR RT from 05/23/2022 FINDINGS: BONES: No acute fracture is present. No bony destructive lesion is seen. Knee prosthesis. Ankle unre markable. SOFT TISSUE: Soft tissue edema. IMPRESSION: Unremarkable radiographs of the right tibia and fibula. DATA REPOSITORY: RADIATION DOSE DELIVERED:
--- NOTE | 2022-05-23 08:00 | DI.RAD_ITS ---
Exam(s) XR FOOT RT COMPLETE EXAM: XR FOOT RT COMPLETE CLINICAL HISTORY: fall, leg and foot pain. TECHNIQUE: 2D digital imaging was performed. Three views. COMPARISON: CR XR FOOT LT COMPLETE from 07/28/2019 FINDINGS: BONES: No acute fracture is present. No bony destructive lesion is seen. JOINTS: No dislocation present. Degenerative changes. SOFT TISSUE: Soft tissue swelling. IMPRESSION: Soft tissue swelling and degenerative changes. DATA REPOSITORY: RADIATION DOSE DELIVERED:
--- NOTE | 2022-05-23 08:00 | DI.RAD_ITS ---
Exam(s) XR FEMUR RT EXAM: XR FEMUR RT CLINICAL HISTORY: fall, leg pain. TECHNIQUE: 2D digital imaging was performed. AP and lateral views. COMPARISON: No exams were available for comparison FINDINGS: BONES: No acute fracture is present. No bony destructive lesion is seen. JOINTS: Degenerative changes at the hip. Knee prosthesis. SOFT TISSUE: Vascular calcifications. IMPRESSION: No acute abnormality DATA REPOSITORY: RADIATION DOSE DELIVERED:
--- NOTE | 2022-05-23 08:00 | DI.CT_ITS ---
Exam(s) CT HEAD CERVICAL SPINE WO EXAM: CT HEAD CERVICAL SPINE WO CLINICAL HISTORY: fall on eliquis. TECHNIQUE: Imaging Protocol: Axial computed tomography images with coronal and sagittal reformatted images were created and reviewed COMPARISON: CT HEAD WITHOUT CONTRAST from 01/08/2015 FINDINGS: Ventricles and Extra axial spaces: Normal in size and morphology for the patient's age. Hemorrhage: None. Cerebral parenchyma: Mild atrophy. Mild white matter changes consistent with small vessel disease. Midline shift: None. Brainstem/Cerebellum: Normal. Calvarium: Hyperostosis frontalis interna Visualized Paranasal sinuses/Mastoids: Clear. IMPRESSION: No acute abnormality. RADIATION DOSE DELIVERED: 1,582.28mGy.cm Total DLP 1,582.28mGy.cm Total DLP DATA REPOSITORY: All CT scans at this facility are submitted to the National Radiology Data Registry (NRDR) Dose Index Registry (DIR) with the [employer] (ACR). RADIATION OPTIMIZATION: All CT scans at this facility use at least one of these dose optimization te chniques: automated exposure control; mA and/or kV adjustment per patient size (includes targeted exa ms where dose is matched to clinical indication); or iterative reconstruction.
--- NOTE | 2022-05-23 08:15 | DI.RAD_ITS ---
Exam(s) XR KNEE RT 2V AP,LAT EXAM: XR KNEE RT 2V AP,LAT CLINICAL HISTORY: fall, this morning pain along leg. TECHNIQUE: 2D digital imaging was performed. Three views. COMPARISON: No exams were available for comparison FINDINGS: BONES: No acute fracture is present. No bony destructive lesion is seen. JOINTS: Knee prosthesis noted. Chronic appearing surrounding bony densities. A joint effusion is se en. SOFT TISSUE: swelling. Calcification near or within patellar tendon. IMPRESSION: Joint effusion and the prosthesis. No fracture evident. DATA REPOSITORY: RADIATION DOSE DELIVERED:
[2022-05-23] MEDS: Acetaminophen 325 MG TAB 650 MG PO (08:49)
--- NOTE | 2022-05-23 09:25 | ED.GENADUL_ITS ---
Discharge Plan Disposition Patient Disposition: Home Discharge Details Clinical Impression: Knee pain, right, Azotemia Primary Care Provider: Laverne Sung ED Provider: Leticia Middleton Home Meds and New Rx's Prescriptions: Continued insulin aspart U-100 [Novolog FlexPen U-100 Insulin] 100 unit/mL (3 mL) insulin pen See Rx Instructions subcut AC MDD 30 units Qty: 90 3RF Rx Instructions: 2-10 units subcut before meals; For diabetes as directed with meals sliding scale: 100:0units 101-150: 2 units 151-200: 4 units 201-250: 6 units 251-300: 8 units over 300: 10 units (DME) FreeStyle Bradley 2 Sensor Kit See Rx Instructions .ROUTE .MEDSUPPLY Qty: 2 11RF Rx Instructions: As directed; on insulin AC & HS for goal A1C 8% acetaminophen [Tylenol Extra Strength] 500 mg tablet 500 mg PO Q6H PRN amlodipine 5 mg tablet 5 mg PO DAILY Qty: 90 3RF Rx Instructions: Blood pressure magnesium oxide 400 mg (241.3 mg magnesium) tablet 400 mg PO DAILY Qty: 90 3RF Rx Instructions: Low magnesium (DME) BD Eclipse Luer-Timi 3 mL 23 x 1 syringe See Rx Instructions .ROUTE .MEDSUPPLY Qty: 15 0RF Rx Instructions: for use with monthly self administered B12 injections docusate sodium [Colace] 100 mg capsule 100 mg PO BID Eliquis 5 mg tablet 5 mg PO BID Qty: 180 3RF Hold Instructions: Resume on 03/18/22. pantoprazole [Protonix] 40 mg tablet,delayed release (DR/EC) 40 mg PO DAILY Qty: 90 3RF Rx Instructions: h/o GI bleed, stomach protection (DME) Oxygen Tank See Rx Instructions .ROUTE .MEDSUPPLY Qty: 1 0RF Rx Instructions: 2-5L via NC continuous (DME) pen needle, diabetic [BD Ultra-Fine Mini Pen Needle] 31 gauge x 3/16 needle See Rx Instructions .ROUTE .MEDSUPPLY Qty: 100 6RF Rx Instructions: for insulin administration qid dx E11.22 #360 Refill 3 cyanocobalamin (vitamin B-12) 1,000 mcg/mL kit 1,000 mcg subcut QMONTH Qty: 1 11RF Rx Instructions: May self-administer at home for low B12 bumetanide 1 mg tablet 1 mg PO BID Qty: 180 3RF Rx Instructions: Diuretic for heart and swelling or as directed fluticasone propionate 50 mcg/actuation spray,suspension 1 spray NS DAILY PRN (Reason: allergy symptoms) Qty: 15.8 0RF insulin glargine 100 unit/mL (3 mL) insulin pen 32 unit subcut DAILY MDD 50 units/24 hours Qty: 45 3RF atorvastatin 80 mg tablet 80 mg PO QHS Qty: 90 3RF Rx Instructions: Cholesterol Calcium 600 with Vitamin D3 600 mg(1,500mg) -400 unit Tablet,Chewable 1 tab PO BID Discharge Instructions Instructions: Knee Pain (ED) Additional Instructions: Please have your labs redrawn this week, specifically your BUN and creatinine levels to recheck Make sure you are drinking at least eight 8 ounce glasses of water daily Your Holter monitor will have to be placed at a different time as we do not have the capability to place this today He is Going from Sitting to Standing and Use Her Walker at All Times with Ambulation Please Return Earlier Should You Have New or Worsening Complaints Take Tylenol 650 Mg Every 6 Hours Please return immediately should you have new or worsening complaints Please follow-up with your doctor next week Referrals: 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 She states that she tripped on some cords and her right knee gave out, causing her to fall on the ground. She was unable to get up secondary to pain in her knee. She adamantly denies any head injury She denies any chest pain or shortness of breath. She actually is feeling marked improvement after being discharged from hospital X-rays and CT scan do not show evidence of acute abnormality per radiology interpretation my review Her right knee right lower extremity imaging does not show evidence of acute abnormality in her head and cervical spine do not show evidence of significant acute abnormality Patient was noted to be bradycardic throughout her stay when I compare her rate to prior evaluations, it seems like this is her baseline intermittently and she with ambulation and is actually in the 70s to 80s for rate and completely asymptomatic with this She is fully alert and oriented, she is ambulatory with slightly antalgic although safe and steady gait, she has a walker at home and has limited need to ambulate She is adamant about being discharged home and feels comfortable with the plan I did review her labs from today and her BUN is quite elevated at 94, she does not appear clinically dehydrated and she is not orthostatic I have encouraged hydration, 88 ounce glasses of water daily and repeat labs this week as she was diuresed up until 22 May and this may be contributing to her azotemia I have ordered labs to be rechecked this week She is given low threshold to return should she have new or worsening complaints and discharged home in stable condition She is also set up for Holter monitor in the outpatient setting she says she has never had a evaluation for her bradycardia in the past I think she safe for discharge home at this time, she lives with her son who is able to assist her She is fully alert, oriented, of decisional capacity and will be discharged home at this time Medical Records Medical records reviewed: Yes I reviewed the patient's medical records. Lab Data Lab results reviewed: Yes I reviewed the patient's lab results. HPI General Date/Time Provider Initiated Documentation: 05/23/22 07:59 . HPI Narrative: This 76-year-old female with history of stage IV renal disease, diabetes, sleep apnea, chronic oxygen dependency with recent admission and discharge from the hospital reports after a mechanical fall at about 2:30 in the morning. She states that she tripped over her oxygen cord. She states she was unable to get herself off the floor since 2:30 AM and her son was at work so she did not have assistance until 8. She denies any fever or chills. She denies any chest pain or shortness of breath. She denies any dizziness prior to the fall. She denies any loss of consciousness. She landed directly on her buttocks. She states she was unable to get up secondary to pain in her right lower leg. She does report she was feeling significant improvement after her hospital stay and subsequent discharge and is hoping to go home today. Related Data Home Medications Medication Instructions Recorded Confirmed calcium carbonate 600 mg-vitamin 1 tab PO BID 12/28/18 05/23/22 D3 10 mcg (400 unit) chewable tablet (Calcium 600 with Vitamin D3) acetaminophen 500 mg tablet 500 mg PO Q6H PRN 12/04/19 05/23/22 (Tylenol Extra Strength) insulin aspart U-100 100 unit/mL See Rx Instructions subcut AC DMT2 06/16/21 05/23/22 (3 mL) subcutaneous pen (Novolog #90 mL FlexPen U-100 Insulin aspart) flash glucose sensor (FreeStyle #2 ea 07/01/21 05/15/22 Bradley 2 Sensor kit) amlodipine 5 mg tablet 5 mg PO DAILY #90 tabs 08/25/21 05/23/22 magnesium oxide 400 mg (241.3 mg 400 mg PO DAILY #90 tabs 08/25/21 05/23/22 magnesium) tablet apixaban 5 mg tablet (Eliquis) 5 mg PO BID #180 tabs 10/07/21 05/23/22 pantoprazole 40 mg tablet,delayed 40 mg PO DAILY #90 tabs 10/07/21 05/23/22 release (Protonix) syringe with needle 3 mL 23 x 1 #15 ea 11/24/21 05/15/22 (BD Eclipse Luer-Timi) Oxygen #1 ea 12/19/21 05/15/22 pen needle, diabetic 31 gauge x #100 ea 12/26/21 05/15/22/ (BD Ultra-Fine Mini Pen Needle) cyanocobalamin (vitamin B-12) 1,000 mcg subcut QMONTH #1 ea 01/20/22 05/23/22 1,000 mcg/mL injection kit docusate sodium 100 mg capsule 100 mg PO BID 02/10/22 05/23/22 (Colace) bumetanide 1 mg tablet 1 mg PO BID #180 tabs 02/11/22 05/23/22 fluticasone propionate 50 1 spray NS DAILY PRN allergy 02/11/22 05/23/22 mcg/actuation nasal symptoms #15.8 mL spray,suspension insulin glargine 100 unit/mL (3 32 unit (0.32 mL) subcut DAILY #45 04/10/22 05/23/22 mL) subcutaneous pen mL atorvastatin 80 mg tablet 80 mg PO QHS #90 tabs 05/11/22 05/23/22 Previous Rx's Medication Instructions Recorded insulin aspart U-100 100 unit/mL See Rx Instructions subcut AC DMT2 06/16/21 (3 mL) subcutaneous pen (Novolog #90 mL FlexPen U-100 Insulin aspart) flash glucose sensor (FreeStyle #2 ea 07/01/21 Bradley 2 Sensor kit) amlodipine 5 mg tablet 5 mg PO DAILY #90 tabs 08/25/21 magnesium oxide 400 mg (241.3 mg 400 mg PO DAILY #90 tabs 08/25/21 magnesium) tablet apixaban 5 mg tablet (Eliquis) 5 mg PO BID #180 tabs 10/07/21 pantoprazole 40 mg tablet,delayed 40 mg PO DAILY #90 tabs 10/07/21 release (Protonix) syringe with needle 3 mL 23 x 1 #15 ea 11/24/21 (BD Eclipse Luer-Timi) Oxygen #1 ea 12/19/21 pen needle, diabetic 31 gauge x #100 ea 12/26/21 3/16 (BD Ultra-Fine Mini Pen Needle) cyanocobalamin (vitamin B-12) 1,000 mcg subcut QMONTH #1 ea 01/20/22 1,000 mcg/mL injection kit bumetanide 1 mg tablet 1 mg PO BID #180 tabs 02/11/22 fluticasone propionate 50 1 spray NS DAILY PRN allergy 02/11/22 mcg/actuation nasal symptoms #15.8 mL spray,suspension insulin glargine 100 unit/mL (3 32 unit (0.32 mL) subcut DAILY #45 04/10/22 mL) subcutaneous pen mL atorvastatin 80 mg tablet 80 mg PO QHS #90 tabs 05/11/22 Allergies Allergy/AdvReac Type Severity Reaction Status Date / Time codeine Allergy Severe Swelling/Ed Verified 05/23/22 07:46 warner furosemide [From Lasix] Allergy Severe Swelling/Ed Verified 05/23/22 07:46 warner morphine Allergy Severe Swelling/Ed Verified 05/23/22 07:46 warner peanut Allergy Severe Nausea Verified 05/23/22 07:46 tree nut Allergy Severe Verified 05/23/22 07:46 acetaminophen [From Percocet] Allergy Intermediate ITCHY Verified 05/23/22 07:46 adhesive tape Allergy Intermediate Skin Rash Verified 05/23/22 07:46 oxycodone HCl [From Percocet] Allergy Intermediate ITCHY Verified 05/23/22 07:46 apricot Allergy Unknown Uncoded 05/23/22 07:46 General Stated Complaint: Orthopedic GERALDINE: 3 PFSH All Active Problems (Updated 05/23/22 @ 11:24 by JAYDEN Diaz) Knee pain, right (Acute) Azotemia (Acute) Bradycardia (Acute) Gout (Chronic) CKD stage 4 due to type 2 diabetes mellitus (Acute) Weakness generalized (Acute) Advanced care planning/counseling discussion (Acute) Respiratory failure with hypoxia and hypercapnia (Acute) Obstructive sleep apnea treated with BiPAP (Acute) Hypoxia (Acute) Trigger finger, right middle finger (Acute) Injection: 05/04/2022 Right carpal tunnel syndrome (Acute) CHF (congestive heart failure) (Acute 02/23/14) Preserved EF (10/2020 & 08/2021 ECHO) Obstructive sleep apnea (Chronic 02/23/14) Sleep Med Referral, 04/17/2019-->Very severe YARELY; CPAP ([facility]) with continuous O2, new Panda C-Pap 01/2021 Type II diabetes mellitus (Chronic) Hypertension (Chronic) Hyperlipidemia (Chronic) Atrial fibrillation (Chronic) Apixaban Anemia (Chronic) Pulmonary hypertension (Chronic) CKD (chronic kidney disease) (Chronic) Dependence on supplemental oxygen (Chronic) YARELY + Pulm HTN Palliative care status (Chronic) Full code status (Chronic) Chronic low back pain (Chronic 07/24/15) CT-lumbar spine 2019-- Severe multilevel degenerative changes in the lumbar spine resulting in neural foraminal and central spinal canal stenosis. Chronic anticoagulation (Chronic) AF--Apixaban Risk for falls (Chronic) Sedentary lifestyle (Chronic) B12 deficiency (Chronic) Start B12 injections; elevated MCV Gout attack (Acute) R podagra, first attach 10/2020-->treated with colchine, effective Chronic respiratory failure with hypercapnia (Chronic) Obesity hypoventilation syndrome (Chronic) Obesity + Severe YARELY + Chronic Hypercapnia Dependent on walker for ambulation (Chronic) Hypomagnesemia (Acute ~07/2021) Mild mitral valve regurgitation (Acute ~08/2021) ECHO Trace tricuspid valve regurgitation (Acute ~08/2021) ECHO Medical History Adult body mass index 50.0-59.9 Carpal tunnel syndrome, bilateral (10/05/17) Dietary counseling reviewed sodium levels in her food, how to count mg, goal of 1500 mg daily due to CHF 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 Folate deficiency Low 12/2018; resolved 05/2019 labs; discontinued 02/05/2020 h/o elbow fx H/O fracture of nose H/O rotator cuff tear Heme + stool [facility] [place] Upper GI Endoscopy Peptic Duodenitis (pathology report); repeat hemoccults NEG 11/2019 HTN (hypertension) Insulin dependent diabetes mellitus Iron deficiency EGD 05/23/19 at [facility]; discont supp iron & vit c 02/05/2020; Hgb stable and iron constipating; she will obtain dietarily Lipoma Lipoma of arm YARELY (obstructive sleep apnea) Peptic ulcer of duodenum [facility] Path reports upper endoscopy; RX Carafate Renal calculi Non obstructive per CT Restrictive lung disease (~03/2014) PFTs validated 04/04/2014-->see scanned docs Sciatica of right side without back pain RX Medrol Spinal stenosis, lumbar Surgical History Biopsy, Temporal Artery (01/18/15) DR.C YOUNG Colonoscopy - [facility] [place] (08/14/16) History of carpal tunnel repair Left- 1998 Right- 2017 History of shoulder surgery Right shoulder repair - 2004 History of total abdominal hysterectomy and bilateral salpingo-oophorectomy (~02/1999) History of total bilateral knee replacement History of total knee arthroplasty bilateral Family History Mother Heart disease Father Heart disease Lung cancer Brother Heart disease AAA (abdominal aortic aneurysm, ruptured) Brother Obesity Son No problems noted. Daughter Stillborn, abnormal Daughter No problems noted. 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 Pets and animals: Yes Pets and animals: cat(s) Sexually active: No Do you think of yourself as: straight/heterosexual Current gender identity: female What is your relationship status?: How often do you talk on the phone with friends or family?: once per week How often do you get together with friends or relatives?: once per week Panel score (0-1 are the most socially isolated patients): 0 What type of physical activity do you participate in: none and sedentary lifestyle Special jakob needs: No Agree to transfusion: Yes Seatbelt use: always In current or past relationships, have you been: made to feel afraid Do you feel safe at home: Yes Do you feel safe in your relationship?: Yes Additional Social history: per preop: Lives with son Abdias in house trailer. He works. He never left home. She is on home oxygen. Spends most of her day watching TV, sitting on couch. Has a cat. Never smoked. Has been 3 times. 2 husbands have , from one. Daughter lives in [place] with her 8 kids. Exam Const General: cooperative, comfortable and no acute distress Orientation: alert and oriented x3 HENMT Head: normal to inspection Eyes Pupils: PERRL Neck Other: No midline tenderness Resp Effort & Inspection: normal respiratory effort Auscultation: clear to auscultation bilaterally Cardio Rate: regular rate Rhythm: regular rhythm GI Inspection: normal to inspection Back/Spine/Pelvis Back: no CVA tenderness Other: No midline tenderness Skin General skin exam: no rashes or lesions noted Neuro General: patient alert, patient oriented x3 and no focal motor deficits Extrem Other: Distal pulses intact, mild swelling and tenderness to right knee and slightly proximal and proximal to royal and right foot, no crepitus, neurovascularly intact Course Vital Signs Vital signs: Vital Signs Temperature 36.8 C 05/23/22 07:34 Pulse 53 L 05/23/22 07:34 Respiratory Rate 20 05/23/22 07:34 Blood Pressure 151/71 H 05/23/22 07:34 Pulse Oximetry 100 05/23/22 07:34 Temperature 36.8 C 05/23/22 07:34 Pulse 53 L 05/23/22 07:34 Respiratory Rate 20 05/23/22 07:34 Respiratory Effort Normal, Non-Labored 05/23/22 07:38 Blood Pressure 151/71 H 05/23/22 07:34 Blood Pressure Position Sitting 05/23/22 07:34 Pulse Oximetry 100 05/23/22 09:05 Oxygen Delivery Method Nasal Cannula 05/23/22 09:05 Oxygen Flow Rate 2.5 05/23/22 09:05 Pain Level 1 05/23/22 08:49
[2022-05-23 09:38] LABS: Abs Immature Grans 0.06 10^3/uL (0.0-0.06); Basophils % 0.1; HCT 38.8 % (36.0-46.0); HGB 12.1 g/dL (11.2-15.7); Immature Grans % 0.4; Lymphocytes % 13.3; MCH 30.4 pg (27.0-33.0); MCHC 31.2 % (32.0-36.0); MCV 98 fL (80-95); MPV 10.9 fL (8.0-11.0); Monocytes % 9.8; Neutrophils % 75.4; Platelet Count 247 10^3/uL (130-400); RBC 3.98 10^6/uL (3.93-5.22); RDW 15.7 % (11.7-14.6); RDW-SD 57.1 fL; WBC 13.41 10^3/uL (4.4-10.8)
[2022-05-23 09:42] LABS: Absolute Basophil Count 0.01 10^3/uL (0.0-0.2); Absolute Eosinophil Count 0.13 10^3/uL (0.0-0.7); Absolute Lymphocyte Count 1.78 10^3/uL (1.2-3.4); Absolute Monocyte Count 1.31 10^3/uL (0.1-0.8); Absolute Neutrophil Count 10.11 10^3/uL (1.2-6.7)
[2022-05-23 09:54] LABS: ALT 32 U/L (14-59); AST 28 U/L (15-37); Albumin 3.2 g/dL (3.4-5.0); Alkaline Phosphatase 70 U/L (46-116); Anion Gap 3.8 mmol/L (3-11); Bilirubin, Total 0.9 mg/dL (0.2-1.0); CO2 40.2 mmol/L (21.0-32.0); CREATININE 2.6 mg/dL (0.55-1.02); Calcium 9.4 mg/dL (8.5-10.1); Chloride 96 mmol/L (98-107); Creatine Kinase 65 U/L (26-192); Estimated GFR 18.67 (mL/min/1.73m2); Glucose 100 mg/dL (74-106); Lipase 214 U/L (16-77); Potassium 4.2 mmol/L (3.5-5.1); Sodium 140 mmol/L (136-145); Total Protein 7.1 g/dL (6.4-8.2)
[2022-05-23 09:56] LABS: BUN 94 mg/dL (7-18)
--- NOTE | 2022-05-23 10:15 | RT.EKG_ITS ---
APPROVED REPORT Exam: Resting ECG Reason for Exam: Low heart rate Patient Location: E HR:54 bpm ECG Measurements Heart Rate 54 AXIS TN [id number] P [id number] QRSd 86 QRS -15 QT 404 T 3 QTc 382 Conclusion Atrial fibrillation...V-rate 49- 66, irreg A-activity afib, bradycardia, nonischemic
--- NOTE | 2022-05-23 10:15 | DI.VRAD_ITS ---
PROCEDURE INFORMATION: Exam: CT Head Without Contrast Exam date and time: 05/23/2022 9:30 AM Age: 76 years old Clinical indication: Injury or trauma; Fall; Blunt trauma (contusions or hematomas); Consciousness not specified; Injury date: Today TECHNIQUE: Imaging protocol: Computed tomography of the head without contrast. Radiation optimization: All CT scans at this facility use at least one of these dose optimization techniques: automated exposure control; mA and/or kV adjustment per patient size (includes targeted exams where dose is matched to clinical indication); or iterative reconstruction. COMPARISON: No relevant prior studies available. FINDINGS: Brain: No acute intracranial hemorrhage.. There is mild diffuse heterogeneity of the white matter attenuation, consistent with chronic white matter ischemic changes. Mild cerebral atrophy Cerebral ventricles: No ventriculomegaly. Paranasal sinuses: Visualized sinuses are unremarkable. No fluid levels. Mastoid air cells: Visualized mastoid air cells are well aerated. Bones/joints: Benign hyperostosis frontalis is present. Soft tissues: Unremarkable. IMPRESSION: No acute intracranial hemorrhage.. PROCEDURE INFORMATION: Exam: CT Cervical Spine Without Contrast Exam date and time: 05/23/2022 9:30 AM Age: 76 years old Clinical indication: Injury or trauma; Fall; Blunt trauma (contusions or hematomas); Consciousness not specified; Injury date: Today TECHNIQUE: Imaging protocol: Computed tomography of the cervical spine without contrast. Radiation optimization: All CT scans at this facility use at least one of these dose optimization techniques: automated exposure control; mA and/or kV adjustment per patient size (includes targeted exams where dose is matched to clinical indication); or iterative reconstruction. COMPARISON: CR XR PORTABLE CHEST AP 05/15/2022 10:15 AM FINDINGS: Bones/joints: No acute fracture of the cervical spine. No subluxation or dislocation of the cervical spine. Intervertebral disc space narrowing C6 through T1 may represent degenerative disc disease.. Anterolisthesis of C3 with respect to C4 and C4 with respect to C5 and C7 with respect to T1. Anterior osteophyte formation C3 through C7. Posterior osteophyte formation C4 through C7. Degenerative changes in the facets at multiple levels. Degenerative changes at C1/C2 Lungs: Lung apices are normal. Thyroid: The thyroid is enlarged and heterogeneous. 2.6 cm nodule in the thyroid. Recommend thyroid ultrasound Soft tissues: Unremarkable. IMPRESSION: 1. No acute fracture of the cervical spine. 2. No subluxation or dislocation of the cervical spine. 3. Intervertebral disc space narrowing C6 through T1 may represent degenerative disc disease.. 4. Anterolisthesis of C3 with respect to C4 and C4 with respect to C5 and C7 with respect to T1. Dictated and Authenticated by: Karyn Peterson MD. Ordering:ELSIE Kelly MD
--- NOTE | 2022-05-23 10:38 | DI.VRAD_ITS ---
PROCEDURE INFORMATION: Exam: XR Right Tibia and Fibula Exam date and time: 05/23/2022 9:43 AM Age: 76 years old Clinical indication: Pain; Lower leg; Right; Patient HX: Fall TECHNIQUE: Imaging protocol: Radiologic exam of the right tibia and fibula. Views: 2 views. COMPARISON: CR XR KNEE RT 2V AP,LAT 05/23/2022 9:40 AM FINDINGS: Bones/joints: There is a total right knee arthroplasty, with hardware in good position. No evidence of loosening or infection.No acute fracture or dislocation. Soft tissues: Normal. IMPRESSION: No acute findings. Dictated and Authenticated by: Elizabeth Goss MD. Ordering:ELSIE Kelly MD
--- NOTE | 2022-05-23 10:39 | DI.VRAD_ITS ---
PROCEDURE INFORMATION: Exam: XR Right Foot Exam date and time: 05/23/2022 9:44 AM Age: 76 years old Clinical indication: Pain; Ankle and foot; Right; Patient HX: Fall TECHNIQUE: Imaging protocol: Radiologic exam of the right foot. Views: 3 or more views. COMPARISON: CR XR TIB/FIB RT 05/23/2022 9:43 AM FINDINGS: Bones/joints: No acute fracture or dislocation. Mild degenerative changes 1st MTP and interphalangeal joints. Soft tissues: There is soft tissue swelling noted. IMPRESSION: No acute findings. Dictated and Authenticated by: Elizabeth Goss MD. Ordering:ELSIE Kelly MD
--- NOTE | 2022-05-23 10:40 | DI.VRAD_ITS ---
PROCEDURE INFORMATION: Exam: XR Right Knee Exam date and time: 05/23/2022 9:40 AM Age: 76 years old Clinical indication: Pain; Knee; Right; Patient HX: Fall TECHNIQUE: Imaging protocol: Radiologic exam of the right knee. Views: 3 views. COMPARISON: US EXTREMITY VENOUS BI 10/21/2020 11:29 AM FINDINGS: Bones/joints: There is a total right knee arthroplasty, with hardware in good position. No evidence of loosening or infection. Soft tissues: There is soft tissue swelling in the infrapatellar region. Heterotopic ossification noted near the patellar tendon. IMPRESSION: No acute fracture or dislocation. Dictated and Authenticated by: Elizabeth Goss MD. Ordering:ELSIE Kelly MD
--- NOTE | 2022-05-23 10:41 | DI.VRAD_ITS ---
PROCEDURE INFORMATION: Exam: XR Right Femur Exam date and time: 05/23/2022 9:41 AM Age: 76 years old Clinical indication: Pain; Hip and knee and thigh; Right; Patient HX: Fall TECHNIQUE: Imaging protocol: Radiologic exam of the right femur. Views: 2 views. COMPARISON: CR XR KNEE RT 2V AP,LAT 05/23/2022 9:40 AM FINDINGS: Bones/joints: Moderate DJD of the hip joint. No acute fracture or dislocation. There is a total right knee arthroplasty, with hardware in good position. No evidence of loosening or infection. Soft tissues: Unremarkable. IMPRESSION: No acute findings. Dictated and Authenticated by: Elizabeth Goss MD. Ordering:ELSIE Kelly MD
--- NOTE | 2022-06-04 14:02 | W.PFT ---
Date of service: 05/21/22 Time of Service: 11:13 Pulmonary Function Test Result Requesting Provider Laura Indications: Trilogy qualification Interpretation Spirometry: No airflow limitation. There is restrictive appearing spirometry Impression Restrictive spirometry Clinical Correlation therefore is recommended.
== END 2022-05-23 12:33 | disposition home or self-care (01) ==
PROVIDERS: Emergency Provider Physician Assistant; PCP Nurse Practitioner Adult Health
DX: R79.89 Other specified abnormal findings of blood chemistry; W01.0XXA Fall on same level from slipping, tripping and stumbling without subsequent striking against object, initial encounter; E11.22 Type 2 diabetes mellitus with diabetic chronic kidney disease; N18.4 Chronic kidney disease, stage 4 (severe); I12.9 Hypertensive chronic kidney disease with stage 1 through stage 4 chronic kidney disease, or unspecified chronic kidney disease; M25.461 Effusion, right knee
CPT/HCPCS: 73552; 80053; 82550; 83690; 93005; 99284; 70450; 72125; 73560; 73590; 73630; 85025; 93010; 99283

== ENCOUNTER 2022-05-26 16:21 | Outpatient (REF) | payer MEDICARE, SELFPAY ==
[2022-05-26 15:05] LABS: Abs Immature Grans 0.03 10^3/uL (0.0-0.06); Absolute Basophil Count 0.03 10^3/uL (0.0-0.2); Absolute Eosinophil Count 0.23 10^3/uL (0.0-0.7); Absolute Lymphocyte Count 1.46 10^3/uL (1.2-3.4); Absolute Neutrophil Count 6.09 10^3/uL (1.2-6.7); Basophils % 0.4; Eosinophils % 2.7; HCT 37.8 % (36.0-46.0); HGB 11.6 g/dL (11.2-15.7); Immature Grans % 0.4; Lymphocytes % 17.1; MCH 29.9 pg (27.0-33.0); MCHC 30.7 % (32.0-36.0); MCV 97 fL (80-95); MPV 11.1 fL (8.0-11.0); Monocytes % 8.2; Neutrophils % 71.2; Platelet Count 292 10^3/uL (130-400); RBC 3.88 10^6/uL (3.93-5.22); RDW 15.5 % (11.7-14.6); RDW-SD 55.2 fL; WBC 8.54 10^3/uL (4.4-10.8)
[2022-05-26 15:55] LABS: Anion Gap 9.6 mmol/L (3-11); BUN 76 mg/dL (7-18); CO2 33.4 mmol/L (21.0-32.0); CREATININE 2.5 mg/dL (0.55-1.02); Calcium 8.8 mg/dL (8.5-10.1); Calculated LDL 83 mg/dL (<100); Chloride 97 mmol/L (98-107); Cholesterol 147 mg/dL (<200); Estimated GFR 19.56 (mL/min/1.73m2); Folate 8.3 ng/mL (8.6-20.0); Glucose 167 mg/dL (74-106); HDL Cholesterol 42 mg/dL (40-60); Magnesium 1.9 mg/dL (1.8-2.4); Potassium 4.3 mmol/L (3.5-5.1); Sodium 140 mmol/L (136-145); Triglyceride 112 mg/dL (<150)
[2022-05-26 16:11] LABS: Vitamin B12 > 2000 pg/mL (193-986)
[2022-05-26 16:21] LABS: Uric Acid 13.2 mg/dL (2.6-6.0)
== END 2022-05-26 16:22 | disposition home or self-care (01) ==
LOC: LBN 16:21
PROVIDERS: PCP Nurse Practitioner Adult Health; Visit Provider Nurse Practitioner Adult Health
DX: I10 Essential (primary) hypertension (principal); D50.9 Iron deficiency anemia, unspecified; E53.8 Deficiency of other specified B group vitamins; E11.9 Type 2 diabetes mellitus without complications; E83.42 Hypomagnesemia; M10.9 Gout, unspecified; E78.5 Hyperlipidemia, unspecified; I48.91 Unspecified atrial fibrillation; N18.4 Chronic kidney disease, stage 4 (severe); Z79.4 Long term (current) use of insulin
CPT/HCPCS: 80048; 80061; 82607; 82746; 83735; 84550; 85025

== ENCOUNTER 2022-06-15 15:32 | Outpatient (REF) | payer MEDICARE, SELFPAY ==
[2022-06-15 16:58] LABS: Abs Immature Grans 0.02 10^3/uL (0.0-0.06); Absolute Basophil Count 0.03 10^3/uL (0.0-0.2); Absolute Eosinophil Count 0.27 10^3/uL (0.0-0.7); Absolute Lymphocyte Count 1.39 10^3/uL (1.2-3.4); Absolute Monocyte Count 0.39 10^3/uL (0.1-0.8); Absolute Neutrophil Count 4.61 10^3/uL (1.2-6.7); Basophils % 0.4; HCT 37.8 % (36.0-46.0); HGB 11.6 g/dL (11.2-15.7); Immature Grans % 0.3; Lymphocytes % 20.7; MCH 30.2 pg (27.0-33.0); MCHC 30.7 % (32.0-36.0); MCV 98 fL (80-95); MPV 11.1 fL (8.0-11.0); Monocytes % 5.8; Neutrophils % 68.8; Platelet Count 214 10^3/uL (130-400); RBC 3.84 10^6/uL (3.93-5.22); RDW 15.4 % (11.7-14.6); RDW-SD 55.1 fL; WBC 6.71 10^3/uL (4.4-10.8)
[2022-06-15 17:19] LABS: Anion Gap 6.4 mmol/L (3-11); BUN 28 mg/dL (7-18); CO2 32.6 mmol/L (21.0-32.0); CREATININE 2.1 mg/dL (0.55-1.02); Calcium 8.9 mg/dL (8.5-10.1); Chloride 102 mmol/L (98-107); Estimated GFR 24.12 (mL/min/1.73m2); Glucose 211 mg/dL (74-106); Sodium 141 mmol/L (136-145); Uric Acid 8.5 mg/dL (2.6-6.0)
== END 2022-06-15 15:33 | disposition home or self-care (01) ==
LOC: LBN 15:32
PROVIDERS: PCP Nurse Practitioner Adult Health; Visit Provider Nurse Practitioner Adult Health
DX: D64.9 Anemia, unspecified (principal); E11.22 Type 2 diabetes mellitus with diabetic chronic kidney disease; M10.9 Gout, unspecified; N18.4 Chronic kidney disease, stage 4 (severe); R79.89 Other specified abnormal findings of blood chemistry; M25.561 Pain in right knee
CPT/HCPCS: 80048; 84550; 85025

== ENCOUNTER 2022-07-07 16:26 | Outpatient (REF) | payer MEDICARE, SELFPAY ==
[2022-07-07 17:21] LABS: Anion Gap 2.5 mmol/L (3-11); BUN 23 mg/dL (7-18); CO2 38.5 mmol/L (21.0-32.0); CREATININE 1.8 mg/dL (0.55-1.02); Calcium 8.7 mg/dL (8.5-10.1); Chloride 100 mmol/L (98-107); Estimated GFR 29.02 (mL/min/1.73m2); Glucose 193 mg/dL (74-106); Potassium 4.1 mmol/L (3.5-5.1); Sodium 141 mmol/L (136-145); Uric Acid 6.4 mg/dL (2.6-6.0)
== END 2022-07-07 16:27 | disposition home or self-care (01) ==
LOC: LBN 16:26
PROVIDERS: PCP Nurse Practitioner Adult Health; Visit Provider Nurse Practitioner Adult Health
DX: E11.22 Type 2 diabetes mellitus with diabetic chronic kidney disease (principal); E79.0 Hyperuricemia without signs of inflammatory arthritis and tophaceous disease; N18.4 Chronic kidney disease, stage 4 (severe)
CPT/HCPCS: 80048; 84550

== ENCOUNTER 2022-07-15 18:01 | Outpatient (REF) | payer MEDICARE, SELFPAY ==
[2022-07-15 18:41] LABS: Anion Gap 1.5 mmol/L (3-11); BUN 25 mg/dL (7-18); CO2 39.5 mmol/L (21.0-32.0); CREATININE 1.9 mg/dL (0.55-1.02); Calcium 8.8 mg/dL (8.5-10.1); Chloride 104 mmol/L (98-107); Glucose 170 mg/dL (74-106); NT-proBNP 3816 pg/mL (<300); Sodium 145 mmol/L (136-145)
== END 2022-07-15 18:02 | disposition home or self-care (01) ==
LOC: NCHCN 18:01
PROVIDERS: PCP Nurse Practitioner Adult Health; Visit Provider Nurse Practitioner Adult Health
DX: I50.9 Heart failure, unspecified (principal); R63.5 Abnormal weight gain; J96.12 Chronic respiratory failure with hypercapnia
CPT/HCPCS: 80048; 83880

== ENCOUNTER 2022-07-23 11:46 | Inpatient (IN) | payer MEDICARE, SELFPAY ==
[2022-07-23] VITALS (18 sets, daily range): BP systolic 115–177; BP diastolic 48–117; PULSE 54–82; RESP 17–20; TEMP 36.4; O2SAT 87–95
--- NOTE | 2022-07-23 11:30 | RT.EKG_ITS ---
APPROVED REPORT Exam: Resting ECG Reason for Exam: CHF Patient Location: E HR:57 bpm ECG Measurements Heart Rate [address] [id number] P [id number] QRSd 96 QRS -38 QT 410 T 55 QTc 401 Conclusion Atrial fibrillation...V-rate 56- 66, irreg A-activity Left axis deviation...QRS axis (-30,-90). Afib. No STEMI. I have reviewed and interpreted ECG and agree with software generated interpretation.
[2022-07-23 12:09] LABS: Abs Immature Grans 0.02 10^3/uL (0.0-0.06); Absolute Basophil Count 0.05 10^3/uL (0.0-0.2); Absolute Eosinophil Count 0.26 10^3/uL (0.0-0.7); Absolute Lymphocyte Count 1.48 10^3/uL (1.2-3.4); Absolute Monocyte Count 0.51 10^3/uL (0.1-0.8); Absolute Neutrophil Count 5.58 10^3/uL (1.2-6.7); Basophils % 0.6; Eosinophils % 3.3; HCT 34.6 % (36.0-46.0); HGB 10.4 g/dL (11.2-15.7); Immature Grans % 0.3; Lymphocytes % 18.7; MCH 30.6 pg (27.0-33.0); MCHC 30.1 % (32.0-36.0); MCV 102 fL (80-95); MPV 9.9 fL (8.0-11.0); Monocytes % 6.5; Neutrophils % 70.6; Platelet Count 223 10^3/uL (130-400); RDW 17.6 % (11.7-14.6)
[2022-07-23 12:27] LABS: ALT 8 U/L (14-59); AST 12 U/L (15-37); Albumin 3.1 g/dL (3.4-5.0); Alkaline Phosphatase 81 U/L (46-116); Anion Gap 1.4 mmol/L (3-11); BUN 27 mg/dL (7-18); Bilirubin, Total 0.4 mg/dL (0.2-1.0); CO2 38.6 mmol/L (21.0-32.0); CREATININE 1.9 mg/dL (0.55-1.02); Calcium 9.1 mg/dL (8.5-10.1); Chloride 99 mmol/L (98-107); Glucose 183 mg/dL (74-106); Magnesium 1.6 mg/dL (1.8-2.4); NT-proBNP 3466 pg/mL (<300); Potassium 4.2 mmol/L (3.5-5.1); Sodium 139 mmol/L (136-145); Total Protein 6.9 g/dL (6.4-8.2); Troponin I < 50 ng/L (<or=60)
--- NOTE | 2022-07-23 12:30 | DI.RAD_ITS ---
Exam(s) XR PORTABLE CHEST AP EXAM: XR PORTABLE CHEST AP CLINICAL HISTORY: Shortness of breath. TECHNIQUE: 2D digital imaging was performed. COMPARISON: CR XR PORTABLE CHEST AP from 05/15/2022 FINDINGS: Single AP portable view. Cardiomegaly again noted. Pulmonary venous hypertension pattern noted. No kelechi airspace pulmonary edema. No obvious pleural effusions. Accessory azygos lobe on the right again noted. IMPRESSION: Pulmonary venous hypertension pattern. Cardiomegaly. Similar to previous study of 05/15/2022. DATA REPOSITORY: RADIATION DOSE DELIVERED:
--- NOTE | 2022-07-23 13:37 | ED.GENADUL_ITS ---
Discharge Plan Disposition Patient Disposition: Admit to [facility] Discharge Details Chief Complaint: SOB Clinical Impression: CHF (congestive heart failure), Hypomagnesemia, CKD (chronic kidney disease) Admit Date/Time: 07/23/22 15:28 Admit Provider: Soco Varner Attending Provider: Soco Varner Primary Care Provider: Laverne Sung ED Provider: Tong Cantrell Discharge Data Discharge Date/Time-TO BE ENTERED AT DEPARTURE: 07/23/22 17:05 Medical Decision Making Patient presenting to the emergency department via EMS after home health visit and referral to emergency department. Patient has had a 10 pound weight gain over the past couple days and last night started having increased shortness of breath. She has noted some increased swelling to her lower extremities and primary care has increased her diuretic but she is still having significant weight gain and increasing symptoms. Patient denies fever chills, chest pain, or all other symptoms. Physical exam shows diminished lung sounds bilateral in bases and significant 2-3+ edema from thighs down. Patient has significant past medical history of CKD stage IV, diabetes, CHF, sleep apnea, hypertension, pulmonary hypertension obesity. Given significant past medical history will perform EKG and labs. Pending results will give Bumex 1 mg IV push Please see physician interpretation for full interpretation of EKG but upon my review patient has no acute findings to suggest STEMI and otherwise no significant changes. Reviewed patient's labs and patient has a chronic but stable anemia, CMP shows results at or near baseline except for magnesium 1.6 which we will orally replete. Patient has nondetectable/negative COVID BNP elevated above 3000. Chest x-ray reviewed and showed cardiomegaly and pulmonary venous pattern. I am concerned given that primary care provider has doubled patient's daily diuretic and patient still having worsening of symptoms I do feel that she should be admitted for further diuresis. Patient is agreeable to this. Spoke with hospitalist who agreed to admit patient for further diuresis and monitoring. Imaging Data Radiologic Study: Imaging: X-Ray Radiologist's impression: Exam(s) XR PORTABLE CHEST AP EXAM: XR PORTABLE CHEST AP CLINICAL HISTORY: Shortness of breath. TECHNIQUE: 2D digital imaging was performed. COMPARISON: CR XR PORTABLE CHEST AP from 05/15/2022 FINDINGS: Single AP portable view. Cardiomegaly again noted. Pulmonary venous hypertension pattern noted. No kelechi airspace pulmonary edema. No obvious pleural effusions. Accessory azygos lobe on the right again noted. IMPRESSION: Pulmonary venous hypertension pattern. Cardiomegaly. Similar to previous study of 05/15/2022. HPI General Mode of arrival: EMS . Date/Time Provider Initiated Documentation: 07/23/22 11:53 . Limitations to Documentation: no limitations . Information obtained by: patient, RN notes reviewed and old records reviewed . History of Present Illness 76 year old F presents to the emergency department with the chief complaint of Shortness of breath, leg swelling, Quality is described as other (Denies pain), Patient started experiencing this day(s) (4) and it has been constant. No relieving factors improve symptom(s), No exacerbating factors reported . Patient notes shortness of breath. Related Data Home Medications Medication Instructions Recorded Confirmed calcium carbonate 600 mg-vitamin 1 tab PO BID 12/28/18 07/23/22 D3 10 mcg (400 unit) chewable tablet (Calcium 600 with Vitamin D3) acetaminophen 500 mg tablet 500 mg PO Q6H PRN 12/04/19 07/23/22 (Tylenol Extra Strength) insulin aspart U-100 100 unit/mL See Rx Instructions subcut AC DMT2 06/16/21 07/23/22 (3 mL) subcutaneous pen (Novolog #90 mL FlexPen U-100 Insulin aspart) flash glucose sensor (FreeStyle #2 ea 07/01/21 07/23/22 Bradley 2 Sensor kit) amlodipine 5 mg tablet 5 mg PO DAILY #90 tabs 08/25/21 07/23/22 magnesium oxide 400 mg (241.3 mg 400 mg PO DAILY #90 tabs 08/25/21 07/23/22 magnesium) tablet apixaban 5 mg tablet (Eliquis) 5 mg PO BID #180 tabs 10/07/21 07/23/22 pantoprazole 40 mg tablet,delayed 40 mg PO DAILY #90 tabs 10/07/21 07/23/22 release (Protonix) syringe with needle 3 mL 23 x 1 #15 ea 11/24/21 07/23/22 (BD Eclipse Luer-Timi) Oxygen #1 ea 12/19/21 07/23/22 cyanocobalamin (vitamin B-12) 1,000 mcg subcut QMONTH #1 ea 01/20/22 07/23/22 1,000 mcg/mL injection kit docusate sodium 100 mg capsule 100 mg PO BID 02/10/22 07/23/22 (Colace) bumetanide 1 mg tablet 1 mg PO BID #180 tabs 02/11/22 07/23/22 fluticasone propionate 50 1 spray NS DAILY PRN allergy 02/11/22 07/23/22 mcg/actuation nasal symptoms #15.8 mL spray,suspension atorvastatin 80 mg tablet 80 mg PO QHS #90 tabs 05/11/22 07/23/22 3XL incontinence briefs #30 ea 05/30/22 07/23/22 Wheelchair #1 ea 06/08/22 07/23/22 nystatin 100,000 unit/gram topical 1 applic topical TID #60 grams 06/08/22 07/23/22 powder allopurinol 100 mg tablet 100 mg PO DAILY #90 tabs 06/15/22 07/23/22 insulin glargine 100 unit/mL (3 20 unit subcut DAILY 06/15/22 07/23/22 mL) subcutaneous pen pen needle, diabetic 31 gauge x #100 ea 07/07/22 07/23/22 3/16 (BD Ultra-Fine Mini Pen Needle) bumetanide 1 mg tablet 1 mg PO .COMPLEX 07/08/22 07/23/22 Previous Rx's Medication Instructions Recorded insulin aspart U-100 100 unit/mL See Rx Instructions subcut AC DMT2 06/16/21 (3 mL) subcutaneous pen (Novolog #90 mL FlexPen U-100 Insulin aspart) flash glucose sensor (FreeStyle #2 ea 07/01/21 Bradley 2 Sensor kit) amlodipine 5 mg tablet 5 mg PO DAILY #90 tabs 08/25/21 magnesium oxide 400 mg (241.3 mg 400 mg PO DAILY #90 tabs 08/25/21 magnesium) tablet apixaban 5 mg tablet (Eliquis) 5 mg PO BID #180 tabs 10/07/21 pantoprazole 40 mg tablet,delayed 40 mg PO DAILY #90 tabs 10/07/21 release (Protonix) syringe with needle 3 mL 23 x 1 #15 ea 11/24/21 (BD Eclipse Luer-Timi) Oxygen #1 ea 12/19/21 cyanocobalamin (vitamin B-12) 1,000 mcg subcut QMONTH #1 ea 01/20/22 1,000 mcg/mL injection kit bumetanide 1 mg tablet 1 mg PO BID #180 tabs 02/11/22 fluticasone propionate 50 1 spray NS DAILY PRN allergy 02/11/22 mcg/actuation nasal symptoms #15.8 mL spray,suspension atorvastatin 80 mg tablet 80 mg PO QHS #90 tabs 05/11/22 3XL incontinence briefs #30 ea 05/30/22 Wheelchair #1 ea 06/08/22 nystatin 100,000 unit/gram topical 1 applic topical TID #60 grams 06/08/22 powder allopurinol 100 mg tablet 100 mg PO DAILY #90 tabs 06/15/22 pen needle, diabetic 31 gauge x #100 ea 07/07/22/16 (BD Ultra-Fine Mini Pen Needle) Allergies Allergy/AdvReac Type Severity Reaction Status Date / Time codeine Allergy Severe Swelling/Ed Verified 07/23/22 11:51 warner furosemide [From Lasix] Allergy Severe Swelling/Ed Verified 07/23/22 11:51 warner morphine Allergy Severe Swelling/Ed Verified 07/23/22 11:51 warner peanut Allergy Severe Nausea Verified 07/23/22 11:51 tree nut Allergy Severe Verified 07/23/22 11:51 acetaminophen [From Percocet] Allergy Intermediate ITCHY Verified 07/23/22 11:51 adhesive tape Allergy Intermediate Skin Rash Verified 07/23/22 11:51 oxycodone HCl [From Percocet] Allergy Intermediate ITCHY Verified 07/23/22 11:51 apricot Allergy Unknown Uncoded 07/23/22 11:51 General Stated Complaint: SOB GERALDINE: 3 Review of Systems Constitutional Constitutional: Denies chills, Denies fever(s), Denies headache(s) and Denies malaise ENT Ears, Nose, Mouth, and Throat: Denies headache(s) Cardiovascular Cardiovascular: Reports leg edema, Denies lightheadedness, Reports dyspnea and Reports dyspnea on exertion Respiratory Respiratory: Denies cough, Reports dyspnea and Reports dyspnea on exertion Gastrointestinal Gastrointestinal: Denies abdominal pain and Denies bloating Genitourinary Genitourinary: Reports system reviewed and no additional complaints, except as documented Integumentary/Breasts Skin/Breast: Denies rash, Denies unusual bruising and Denies wounds Neurologic Neurologic: Denies headache(s) PFSH All Active Problems (Updated 07/24/22 @ 08:34 by Tong Cantrell NP) Discharge planning issues (Acute) CKD (chronic kidney disease) (Chronic) At high risk for skin breakdown (Acute) Impaired instrumental activities of daily living (Acute) Deficit in activities of daily living (ADL) (Acute) Hyperuricemia (Acute) Bradycardia (Acute) Gout (Chronic) CKD stage 4 due to type 2 diabetes mellitus (Acute) Respiratory failure with hypoxia and hypercapnia (Acute) Obstructive sleep apnea treated with BiPAP (Acute) CHF (congestive heart failure) (Acute 02/23/14) Preserved EF (10/2020 & 08/2021 ECHO) Obstructive sleep apnea (Chronic 02/23/14) Sleep Med Referral, 04/17/2019-->Very severe YARELY; CPAP ([facility]) with continuous O2, new Panda C-Pap 01/2021 Type II diabetes mellitus (Chronic) Hypertension (Chronic) Hyperlipidemia (Chronic) Atrial fibrillation (Chronic) Apixaban Anemia (Chronic) Pulmonary hypertension (Chronic) Dependence on supplemental oxygen (Chronic) YARELY + Pulm HTN Palliative care status (Chronic) Full code status (Chronic) Chronic low back pain (Chronic 07/24/15) CT-lumbar spine 2019-- Severe multilevel degenerative changes in the lumbar spine resulting in neural foraminal and central spinal canal stenosis. Chronic anticoagulation (Chronic) AF--Apixaban Risk for falls (Chronic) Sedentary lifestyle (Chronic) B12 deficiency (Chronic) Start B12 injections; elevated MCV Chronic respiratory failure with hypercapnia (Chronic) Obesity hypoventilation syndrome (Chronic) Obesity + Severe YARELY + Chronic Hypercapnia Dependent on walker for ambulation (Chronic) Hypomagnesemia (Acute ~07/2021) Mild mitral valve regurgitation (Acute ~08/2021) ECHO Trace tricuspid valve regurgitation (Acute ~08/2021) ECHO Medical History Adult body mass index 50.0-59.9 Carpal tunnel syndrome, bilateral (12/17/16) Dietary counseling reviewed sodium levels in her food, how to count mg, goal of 1500 mg daily due to CHF 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 Folate deficiency Low 12/2018; resolved 05/2019 labs; discontinued 02/05/2020 Gout attack (~10/2020) R podagra, first attack 10/2020-->treated with colchine, effective h/o elbow fx H/O fracture of nose H/O rotator cuff tear Heme + [place] [facility] [place] Peptic Duodenitis (pathology report); repeat hemoccults NEG 11/2019 HTN (hypertension) Insulin dependent diabetes mellitus Iron deficiency EGD 05/23/19 [place] [facility] [place]; discont supp iron & vit c 02/05/2020; Hgb stable and iron constipating; she will obtain dietarily Lipoma Lipoma of arm YARELY (obstructive sleep apnea) Peptic ulcer of duodenum [facility] [place] Path reports upper endoscopy; RX Carafate Renal calculi Non obstructive per CT Restrictive lung disease (~03/2014) PFTs validated 04/04/2014-->see scanned docs Right carpal tunnel syndrome Sciatica of right side without back pain RX Medrol Spinal stenosis, lumbar Trigger finger, right middle finger Injection: 05/04/2022 Surgical History Biopsy, Temporal Artery (01/18/15) DR.C YOUNG Colonoscopy - MAC (08/14/16) History of carpal tunnel repair Left- 1998 Right- 2017 History of shoulder surgery Right shoulder repair - 2004 History of total abdominal hysterectomy and bilateral salpingo-oophorectomy (~02/1999) History of total bilateral knee replacement History of total knee arthroplasty bilateral Family History Mother Heart disease Father Heart disease Lung cancer Brother Heart disease AAA (abdominal aortic aneurysm, ruptured) Brother Obesity Son No problems noted. Daughter Stillborn, abnormal Daughter No problems noted. 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 Pets and animals: Yes Pets and animals: cat(s) Sexually active: No Do you think of yourself as: straight/heterosexual Current gender identity: female What is your relationship status?: How often do you talk on the phone with friends or family?: once per week How often do you get together with friends or relatives?: once per week Panel score (0-1 are the most socially isolated patients): 0 What type of physical activity do you participate in: none and sedentary lifestyle Special jakob needs: No Agree to transfusion: Yes Seatbelt use: always In current or past relationships, have you been: made to feel afraid Do you feel safe at home: Yes Do you feel safe in your relationship?: Yes Additional Social history: per preop: Lives with son Abdias in house trailer. He works. He never left home. She is on home oxygen. Spends most of her day watching TV, sitting on couch. Has a cat. Never smoked. Has been 3 times. 2 husbands have , from one. Daughter lives in [place] with her 8 kids. Exam Const General: cooperative, no acute distress and not ill appearing Orientation: alert, awake and oriented x3 HENMT Mouth: moist mucous membranes Resp Effort & Inspection: normal respiratory effort, able to speak in complete s entences and no respiratory distress Auscultation: diminished lung sounds bilaterally in the lower lung saucedo Cardio Rate: regular rate Rhythm: regular rhythm Heart Sounds: S1 normal and S2 normal Skin General skin exam: no rashes or lesions noted Neuro General: patient alert, patient awake, patient oriented x3, moves all extremities and no focal motor deficits Sensory Exam: no sensory deficits noted Extrem General: edema Laterality: bilateral (2-3+from thighs down ) Course Vital Signs Vital signs: Vital Signs Pulse 82 07/23/22 11:44 Respiratory Rate 20 07/23/22 11:44 Blood Pressure 115/48 L 07/23/22 11:44 Pulse Oximetry 93 07/23/22 11:44 Pulse 82 07/23/22 11:44 Respiratory Rate 20 07/23/22 12:08 Respiratory Effort Short of Breath 07/23/22 12:08 Respiratory Depth Normal 07/23/22 12:08 Respiratory Pattern Normal 07/23/22 12:08 Blood Pressure 115/48 L 07/23/22 11:44 Pulse Oximetry 93 07/23/22 11:44 Oxygen Delivery Method Nasal Cannula 07/23/22 11:44 Oxygen Flow Rate 4 07/23/22 11:44 Pain Level 0 07/23/22 11:44 Lab/Test Results Lab/Test Results: Laboratory Tests Range/Units 07/23/22 07/23/22 11:55 11:55 WBC (4.4-10.8) 10^3/uL 7.90 RBC (3.93-5.22) 10^6/uL 3.40 L Hgb (11.2-15.7) g/dL 10.4 L Hct (36.0-46.0) % 34.6 L MCV (80-95) fL 102 H MCH (27.0-33.0) pg 30.6 MCHC (32.0-36.0) % 30.1 L RDW (11.7-14.6) % 17.6 H Plt Count (130-400) 10^3/uL 223 MPV (8.0-11.0) fL 9.9 Immature Gran % 0.3 Neutrophils % 70.6 Lymphocytes % 18.7 Monocytes % 6.5 Eosinophils % 3.3 Basophils % 0.6 Nucleated RBC % (0.0-0.3) % 0.0 Absolute Neutrophils (1.2-6.7) 10^3/uL 5.58 Absolute Lymphocytes (1.2-3.4) 10^3/uL 1.48 Absolute Monocytes (0.1-0.8) 10^3/uL 0.51 Absolute Eosinophils (0.0-0.7) 10^3/uL 0.26 Absolute Basophils (0.0-0.2) 10^3/uL 0.05 Sodium (136-145) mmol/L 139 Potassium (3.5-5.1) mmol/L 4.2 Chloride (98-107) mmol/L 99 Carbon Dioxide (21.0-32.0) mmol/L 38.6 H Anion Gap (3-11) mmol/L 1.4 L BUN (7-18) mg/dL 27 H Creatinine (0.55-1.02) mg/dL 1.9 H Est GFR (CKD-EPI 2020) (mL/min/1.73m2) 27.20 Glucose (74-106) mg/dL 183 H Calcium (8.5-10.1) mg/dL 9.1 Magnesium (1.8-2.4) mg/dL 1.6 L Total Bilirubin (0.2-1.0) mg/dL 0.4 AST (15-37) U/L 12 L ALT (14-59) U/L 8 L Alkaline Phosphatase (46-116) U/L 81 Troponin I (<or=60) ng/L < 50 NT-Pro-B Natriuret Pep (<300) pg/mL 3466 H Total Protein (6.4-8.2) g/dL 6.9 Albumin (3.4-5.0) g/dL 3.1 L
[2022-07-23] MEDS: Magnesium Oxide 400 MG TAB PO (14:07)
[2022-07-23] MEDS: Bumetanide 1 MG/4 ML VIAL IVP (14:55)
--- NOTE | 2022-07-23 15:23 | HPE_ITS ---
Date of service: 07/23/22 Time of Service: 15:23 Assessment and Plan Assessment and plan (1) CHF (congestive heart failure): Status: Acute Assessment and plan: bumex drip, add metolazone, use albumin follow I&O, daily weights, can have marino for accurate I&O limited echo completed The left ventricle is normal size. The left ventricular systolic function is normal. The left ventricular ejection fraction is within the normal range. There is normal left ventricular wall thickness. LVEF is 55% Qualifiers: Heart failure chronicity: chronic Heart failure type: unspecified Qualified Code(s): I50.9 - Heart failure, unspecified (2) Obstructive sleep apnea treated with BiPAP: Status: Acute Assessment and plan: continue home therapy while hospitalized. son to bring trilogy unit in. (3) Chronic anticoagulation: Status: Chronic Assessment and plan: on apixaban for chronic atrial fibrillation. (4) Type II diabetes mellitus: Status: Chronic Assessment and plan: continue diabetic diet with sliding scale coverage ac/hs continue home medications A1C 7.8 in Mar 2022 Qualifiers: Chronic kidney disease stage: stage 4 (severe) Diabetes mellitus complication detail: with chronic kidney disease Diabetes mellitus complication status: with kidney complications Diabetes mellitus continuous churn buttermaker insulin use: with care home use Qualified Code(s): E11.22 - Type 2 diabetes mellitus with diabetic chronic kidney disease; N18.4 - Chronic kidney disease, stage 4 (severe); Z79.4 - halfway (current) use of insulin (5) CKD (chronic kidney disease): Status: Chronic Assessment and plan: creatinine stable and at baseline. avoid nephrotoxic drugs. follow closely while diuresing Qualifiers: Chronic kidney disease stage: stage 4 (severe) Qualified Code(s): N18.4 - Chronic kidney disease, stage 4 (severe) (6) Discharge planning issues: Status: Acute Assessment and plan: case management following palliative care consulted in past for goals of care and to review code status, patient wishes for full code past admission, declined intermediate facility despite significant physical decline and worsening respiratory status, she was discharged home discussed with Dr Varner History of Present Illness History of Present Illness Chief Complaint: fluid overload Narrative: patient presents for evaluation of increasing shortness of breath, bilateral leg swelling and significant weight gain consistent with history of CHF. work up in the ED supports this. no chest pain. admit to med/surg to diuresis Review of Systems All systems reviewed & are unremarkable except as noted in HPI and below PFSH All Active Problems (Updated 07/23/22 @ 15:28 by Myah Victor NP) Discharge planning issues (Acute) CKD (chronic kidney disease) (Chronic) At high risk for skin breakdown (Acute) Impaired instrumental activities of daily living (Acute) Deficit in activities of daily living (ADL) (Acute) Hyperuricemia (Acute) Bradycardia (Acute) Gout (Chronic) CKD stage 4 due to type 2 diabetes mellitus (Acute) Respiratory failure with hypoxia and hypercapnia (Acute) Obstructive sleep apnea treated with BiPAP (Acute) CHF (congestive heart failure) (Acute 02/23/14) Preserved EF (10/2020 & 08/2021 ECHO) Obstructive sleep apnea (Chronic 02/23/14) Sleep Med Referral, 04/17/2019-->Very severe YARELY; CPAP ([facility]) with continuous O2, new Panda C-Pap 01/2021 Type II diabetes mellitus (Chronic) Hypertension (Chronic) Hyperlipidemia (Chronic) Atrial fibrillation (Chronic) Apixaban Anemia (Chronic) Pulmonary hypertension (Chronic) Dependence on supplemental oxygen (Chronic) YARELY + Pulm HTN Palliative care status (Chronic) Full code status (Chronic) Chronic low back pain (Chronic 07/24/15) CT-lumbar spine 2019-- Severe multilevel degenerative changes in the lumbar spine resulting in neural foraminal and central spinal canal stenosis. Chronic anticoagulation (Chronic) AF--Apixaban Risk for falls (Chronic) Sedentary lifestyle (Chronic) B12 deficiency (Chronic) Start B12 injections; elevated MCV Chronic respiratory failure with hypercapnia (Chronic) Obesity hypoventilation syndrome (Chronic) Obesity + Severe YARELY + Chronic Hypercapnia Dependent on walker for ambulation (Chronic) Hypomagnesemia (Acute ~07/2021) Mild mitral valve regurgitation (Acute ~08/2021) ECHO Trace tricuspid valve regurgitation (Acute ~08/2021) ECHO Medical History Adult body mass index 50.0-59.9 Carpal tunnel syndrome, bilateral (12/17/16) Dietary counseling reviewed sodium levels in her food, how to count mg, goal of 1500 mg daily due to CHF 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 Folate deficiency Low 12/2018; resolved 05/2019 labs; discontinued 02/05/2020 Gout attack (~10/2020) R podagra, first attack 10/2020-->treated with colchine, effective h/o elbow fx H/O fracture of nose H/O rotator cuff tear Heme + stool [facility] [place] Upper GI Endoscopy Peptic Duodenitis (pathology report); repeat hemoccults NEG 11/2019 HTN (hypertension) Insulin dependent diabetes mellitus Iron deficiency EGD 05/23/19 at [facility]; discont supp iron & vit c 02/05/2020; Hgb stable and iron constipating; she will obtain dietarily Lipoma Lipoma of arm YARELY (obstructive sleep apnea) Peptic ulcer of duodenum [facility] Path reports upper endoscopy; RX Carafate Renal calculi Non obstructive per CT Restrictive lung disease (~03/2014) PFTs validated 04/04/2014-->see scanned docs Right carpal tunnel syndrome Sciatica of right side without back pain RX Medrol Spinal stenosis, lumbar Trigger finger, right middle finger Injection: 05/04/2022 Surgical History Biopsy, Temporal Artery (01/18/15) DR.C YOUNG Colonoscopy - [facility] [place] (08/14/16) History of carpal tunnel repair Left- 1998 Right- 2017 History of shoulder surgery Right shoulder repair - 2004 History of total abdominal hysterectomy and bilateral salpingo-oophorectomy (~02/1999) History of total bilateral knee replacement History of total knee arthroplasty bilateral Family History Mother Heart disease Father Heart disease Lung cancer Brother Heart disease AAA (abdominal aortic aneurysm, ruptured) Brother Obesity Son No problems noted. Daughter Stillborn, abnormal Daughter No problems noted. Social History Smoking/Tobacco Use Status: Never Second Hand Exposure: Yes Smoking risk assessment performed?: Yes Alcohol Intake: former Details: never drank heavily but her husbands did Drug use: Never Substance use type: does not use Adopted: No Caregiver/Support person: Yes Foster care: No Household members: children Housing: house Number of Children: 2 number of grandchildren: 8 Communication Needs: Corrective Lenses Education Level: middle school Do you need help understanding health information?: Always current occupation: Retired- [employer] Pets and animals: Yes Pets and animals: cat(s) Sexually active: No Do you think of yourself as: straight/heterosexual Current gender identity: female What is your relationship status?: How often do you talk on the phone with friends or family?: once per week How often do you get together with friends or relatives?: once per week Panel score (0-1 are the most socially isolated patients): 0 What type of physical activity do you participate in: none and sedentary lifestyle Special jakob needs: No Agree to transfusion: Yes Seatbelt use: always In current or past relationships, have you been: made to feel afraid Do you feel safe at home: Yes Do you feel safe in your relationship?: Yes Additional Social history: per preop: Lives with son Abdias in house trailer. He works. He never left home. She is on home oxygen. Spends most of her day watching TV, sitting on couch. Has a cat. Never smoked. Has been 3 times. 2 husbands have , from one. Daughter lives in [place] with her 8 kids. Meds Allergies and Home Medications Allergies Allergy/AdvReac Type Severity Reaction Status Date / Time codeine Allergy Severe Swelling/Ed Verified 07/23/22 11:51 warner furosemide [From Lasix] Allergy Severe Swelling/Ed Verified 07/23/22 11:51 warner morphine Allergy Severe Swelling/Ed Verified 07/23/22 11:51 warner peanut Allergy Severe Nausea Verified 07/23/22 11:51 tree nut Allergy Severe Verified 07/23/22 11:51 acetaminophen [From Percocet] Allergy Intermediate ITCHY Verified 07/23/22 11:51 adhesive tape Allergy Intermediate Skin Rash Verified 07/23/22 11:51 oxycodone HCl [From Percocet] Allergy Intermediate ITCHY Verified 07/23/22 11:51 apricot Allergy Unknown Uncoded 07/23/22 11:51 Home Medications Medication Instructions Recorded Confirmed Type calcium carbonate 600 mg-vitamin 1 tab PO BID 12/28/18 07/23/22 History D3 10 mcg (400 unit) chewable tablet (Calcium 600 with Vitamin D3) acetaminophen 500 mg tablet 500 mg PO Q6H PRN 12/04/19 07/23/22 History (Tylenol Extra Strength) insulin aspart U-100 100 unit/mL See Rx Instructions subcut AC DMT2 06/16/21 07/23/22 Rx (3 mL) subcutaneous pen (Novolog #90 mL FlexPen U-100 Insulin aspart) flash glucose sensor (FreeStyle #2 ea 07/01/21 07/23/22 Rx Bradley 2 Sensor kit) amlodipine 5 mg tablet 5 mg PO DAILY #90 tabs 08/25/21 07/23/22 Rx magnesium oxide 400 mg (241.3 mg 400 mg PO DAILY #90 tabs 08/25/21 07/23/22 Rx magnesium) tablet apixaban 5 mg tablet (Eliquis) 5 mg PO BID #180 tabs 10/07/21 07/23/22 Rx pantoprazole 40 mg tablet,delayed 40 mg PO DAILY #90 tabs 10/07/21 07/23/22 Rx release (Protonix) syringe with needle 3 mL 23 x 1 #15 ea 11/24/21 07/23/22 Rx (BD Eclipse Luer-Timi) Oxygen #1 ea 12/19/21 07/23/22 Rx cyanocobalamin (vitamin B-12) 1,000 mcg subcut QMONTH #1 ea 01/20/22 07/23/22 Rx 1,000 mcg/mL injection kit docusate sodium 100 mg capsule 100 mg PO BID 02/10/22 07/23/22 History (Colace) bumetanide 1 mg tablet 1 mg PO BID #180 tabs 02/11/22 07/23/22 Rx fluticasone propionate 50 1 spray NS DAILY PRN allergy 02/11/22 07/23/22 Rx mcg/actuation nasal symptoms #15.8 mL spray,suspension atorvastatin 80 mg tablet 80 mg PO QHS #90 tabs 05/11/22 07/23/22 Rx 3XL incontinence briefs #30 ea 05/30/22 07/23/22 Rx Wheelchair #1 ea 06/08/22 07/23/22 Rx nystatin 100,000 unit/gram topical 1 applic topical TID #60 grams 06/08/22 07/23/22 Rx powder allopurinol 100 mg tablet 100 mg PO DAILY #90 tabs 06/15/22 07/23/22 Rx insulin glargine 100 unit/mL (3 20 unit subcut DAILY 06/15/22 07/23/22 History mL) subcutaneous pen pen needle, diabetic 31 gauge x #100 ea 07/07/22 07/23/22 Rx 3/16 (BD Ultra-Fine Mini Pen Needle) bumetanide 1 mg tablet 1 mg PO .COMPLEX 07/08/22 07/23/22 History Exam Const General: cooperative, comfortable and no acute distress Nutritional Appearance: overweight Orientation: alert, awake and oriented x3 HENMT Head: normal to inspection, normocephalic and atraumatic Mouth: oral mucosae normal Chest Chest: normal inspection of the chest Resp Effort & Inspection: normal respiratory effort Auscultation: diminished lung sounds (bases bilaterally) Cardio Rate: regular rate GI Inspection: normal to inspection Palpation: soft Auscultation: normal bowel sounds Neuro General: patient alert, patient awake and patient oriented x3 (at baseline) Cognition: normal cognition Extrem General: normal to inspection and pedal edema Psych Mental Status: mental status grossly normal Speech and Movement: speech and movement normal Mood: congruent mood Affect: normal affect Results Labs 07/23/22 11:55 07/23/22 11:55 Labs: Laboratory Results - last 24 hr 07/23/22 07/23/22 11:55 11:55 WBC 7.90 RBC 3.40 L Hgb 10.4 L Hct 34.6 L MCV 102 H MCH 30.6 MCHC 30.1 L RDW 17.6 H Plt Count 223 MPV 9.9 Immature Gran % 0.3 Neutrophils % 70.6 Lymphocytes % 18.7 Monocytes % 6.5 Eosinophils % 3.3 Basophils % 0.6 Nucleated RBC % 0.0 Absolute Neutrophils 5.58 Absolute Lymphocytes 1.48 Absolute Monocytes 0.51 Absolute Eosinophils 0.26 Absolute Basophils 0.05 Sodium 139 Potassium 4.2 Chloride 99 Carbon Dioxide 38.6 H Anion Gap 1.4 L BUN 27 H Creatinine 1.9 H Est GFR (CKD-EPI 2020) 27.20 Glucose 183 H Calcium 9.1 Magnesium 1.6 L Total Bilirubin 0.4 AST 12 L ALT 8 L Alkaline Phosphatase 81 Troponin I < 50 NT-Pro-B Natriuret Pep 3466 H Total Protein 6.9 Albumin 3.1 L Last Vital Signs Pulse 82 07/23/22 11:44 Resp 20 07/23/22 12:08 BP 115/48 L 07/23/22 11:44 Pulse Ox 93 07/23/22 11:44 Time Spent Time spent with Patient: 40-54 minutes Time was spent: preparing to see the patient(eg.review tests), obtaining and/or reviewing separately otained hiistory, ordering medications,tests, procedures, indepentently interpreting results and counseling the patient
[2022-07-23] MEDS: metOLazone 2.5 MG TAB 5 MG PO (18:37)
[2022-07-23] MEDS: Normal Saline Flush 10 ML SYR IVP (18:50)
[2022-07-23] MEDS: ALBUMIN HUMAN 25 GM/100 ML BTL IVPB (18:50)
[2022-07-23] MEDS: Apixaban 5 MG TAB PO (19:56)
[2022-07-23] MEDS: Docusate Sodium 100 MG CAP PO (19:56)
[2022-07-23] MEDS: Acetaminophen 500 MG TAB PO (19:56)
[2022-07-23] MEDS: Cholecalciferol (Vitamin D3) 400 UNIT TAB PO (21:33)
[2022-07-23] MEDS: Atorvastatin 40 MG TAB 80 MG PO (21:33)
[2022-07-23] MEDS: Calcium Carbonate 1.5 GM TAB PO (21:33)
--- NOTE | 2022-07-23 22:58 | NUR.NOTE ---
Addendum entered by Jai Ng RN 07/23/22 23:18: paper mar added to chart. running at current order rate of 0.5ml/hr. will not be charting om old discontinued order per surface supervisor because rates do not match. Original Note: bumex drip order not working. is still wated. charge made aware, pharmacy made aware of issue. only letting me chart on the discontinued order not the current order. charted on old, will use paper chart aswell to verify and match.
[2022-07-24] MEDS: Acetaminophen 500 MG TAB PO ×2 (04:17→05:16)
[2022-07-24 06:50] LABS: Abs Immature Grans 0.01 10^3/uL (0.0-0.06); Absolute Basophil Count 0.03 10^3/uL (0.0-0.2); Absolute Eosinophil Count 0.25 10^3/uL (0.0-0.7); Absolute Lymphocyte Count 1.26 10^3/uL (1.2-3.4); Absolute Monocyte Count 0.51 10^3/uL (0.1-0.8); Absolute Neutrophil Count 4.17 10^3/uL (1.2-6.7); Basophils % 0.5; HCT 32.6 % (36.0-46.0); HGB 9.9 g/dL (11.2-15.7); Immature Grans % 0.2; Lymphocytes % 20.2; MCH 30.4 pg (27.0-33.0); MCHC 30.4 % (32.0-36.0); MCV 100 fL (80-95); MPV 9.8 fL (8.0-11.0); Monocytes % 8.2; Neutrophils % 66.9; Platelet Count 194 10^3/uL (130-400); RBC 3.26 10^6/uL (3.93-5.22); RDW 17.5 % (11.7-14.6); RDW-SD 64.7 fL; WBC 6.23 10^3/uL (4.4-10.8)
[2022-07-24 07:02] LABS: BUN 27 mg/dL (7-18); Calcium 9.4 mg/dL (8.5-10.1); Chloride 99 mmol/L (98-107); Estimated GFR 25.57 (mL/min/1.73m2); Glucose 123 mg/dL (74-106); Potassium 3.7 mmol/L (3.5-5.1); Sodium 141 mmol/L (136-145)
[2022-07-24 07:40] VITALS: BP 131/62; PULSE 76; RESP 18; TEMP 36.6; O2SAT 93
[2022-07-24 08:37] VITALS: O2SAT 92
[2022-07-24 08:39] LABS: Magnesium 1.6 mg/dL (1.8-2.4)
[2022-07-24] MEDS: Nystatin POWDER 15 GM JAR TP ×3 (08:40→20:41)
[2022-07-24] MEDS: Pantoprazole 40 MG TABCR PO (08:40)
[2022-07-24] MEDS: Allopurinol 100 MG TAB PO (08:40)
[2022-07-24] MEDS: Cholecalciferol (Vitamin D3) 400 UNIT TAB PO ×2 (08:40→20:41)
[2022-07-24] MEDS: Apixaban 5 MG TAB PO ×2 (08:40→20:41)
[2022-07-24] MEDS: Calcium Carbonate 1.5 GM TAB PO ×2 (08:40→20:41)
[2022-07-24] MEDS: Docusate Sodium 100 MG CAP PO ×2 (08:40→20:41)
[2022-07-24] MEDS: Magnesium Oxide 400 MG TAB PO (08:40)
--- NOTE | 2022-07-24 09:23 | PDOC.CMIN ---
Date of service: 07/24/22 Time of Service: 09:23 Care Management Initial Assmt Initial Assessment REASON FOR HOSPITALIZATION:: CHF PREVIOUS FUNCTIONAL STATUS/SOCIAL/FAMILY SUPPORTS:: Jane is and lives in [place] at her mobile home with her son Abdias. 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 Per Mohan, she is still independent with her ADL's as long as Abdias is in the room and can help her get into the tub. Abdias cooks and cleans is very supportive. Mohan uses a walker at home and recently got a motorized wheelchair, but the motor already burnt out. Mohan has home O2 and a Bipap machine through [facility]. Ruby Flores is her employment evaluator/case manager in the community and she is followed by Palliative care. CURRENT FUNCTIONAL STATUS:: Mohan was sitting in her chair when CM met with her. She is awake and easily engages in conversation. Mohan mentions that she was recently hospitalized in May and feels she still manages quite well at home, but can no longer stairs. She is waiting for [facility] to approve and build her a ramp so she can leave her house. ADVANCE DIRECTIVES:: On file; son Ricco Alamo as agent Has patient been provided with info about the portal/API?: Yes Did the patient sign up for the portal?: No CODE STATUS:: Full Code CURRENT HOME/COMMUNITY SERVICES/EQUIPMENT:: [facility] RN/PT/OT [facility] Moderate Needs: CM is Ruby Flores Palliative Longterm O2 and Cpap through [facility]. Has FWW, cane and motorized wheelchair PRIMARY CARE PHYSICIAN:: Laverne Sung POTENTIAL DISCHARGE NEEDS:: Evaluations for further needs, follow up appointments. Resumption of [facility] services. PATIENT/FAMILY EDUCATION NEEDS:: Discharge education, limitations, follow-up plan of care, Ask Me Three education and self-management discussion. TRANSPORTATION:: EMS PLAN:: Mohan is being closely monitored and treated. Anticipate, she will discharge home with resumption of [facility] RN, PT, OT services and [facility]FC Mod Needs when medically ready. EMS transport will be needed per PT. CM will continue to support Mohan and further discharge planning considerations. PFSH All Active Problems (Updated 07/24/22 @ 08:34 by Tong Cantrell NP) Discharge planning issues (Acute) CKD (chronic kidney disease) (Chronic) At high risk for skin breakdown (Acute) Impaired instrumental activities of daily living (Acute) Deficit in activities of daily living (ADL) (Acute) Hyperuricemia (Acute) Bradycardia (Acute) Gout (Chronic) CKD stage 4 due to type 2 diabetes mellitus (Acute) Respiratory failure with hypoxia and hypercapnia (Acute) Obstructive sleep apnea treated with BiPAP (Acute) CHF (congestive heart failure) (Acute 02/23/14) Preserved EF (10/2020 & 08/2021 ECHO) Obstructive sleep apnea (Chronic 02/23/14) Sleep Med Referral, 04/17/2019-->Very severe YARELY; CPAP ([facility]) with continuous O2, new Panda C-Pap 01/2021 Type II diabetes mellitus (Chronic) Hypertension (Chronic) Hyperlipidemia (Chronic) Atrial fibrillation (Chronic) Apixaban Anemia (Chronic) Pulmonary hypertension (Chronic) Dependence on supplemental oxygen (Chronic) YARELY + Pulm HTN Palliative care status (Chronic) Full code status (Chronic) Chronic low back pain (Chronic 07/24/15) CT-lumbar spine 2019-- Severe multilevel degenerative changes in the lumbar spine resulting in neural foraminal and central spinal canal stenosis. Chronic anticoagulation (Chronic) AF--Apixaban Risk for falls (Chronic) Sedentary lifestyle (Chronic) B12 deficiency (Chronic) Start B12 injections; elevated MCV Chronic respiratory failure with hypercapnia (Chronic) Obesity hypoventilation syndrome (Chronic) Obesity + Severe YARELY + Chronic Hypercapnia Dependent on walker for ambulation (Chronic) Hypomagnesemia (Acute ~07/2021) Mild mitral valve regurgitation (Acute ~08/2021) ECHO Trace tricuspid valve regurgitation (Acute ~08/2021) ECHO Medical History Adult body mass index 50.0-59.9 Carpal tunnel syndrome, bilateral (12/17/16) Dietary counseling reviewed sodium levels in her food, how to count mg, goal of 1500 mg daily due to CHF 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 Folate deficiency Low 12/2018; resolved 05/2019 labs; discontinued 02/05/2020 Gout attack (~10/2020) R podagra, first attack 10/2020-->treated with colchine, effective h/o elbow fx H/O fracture of nose H/O rotator cuff tear Heme + stool [facility] [place] Upper GI Endoscopy Peptic Duodenitis (pathology report); repeat hemoccults NEG 11/2019 HTN (hypertension) Insulin dependent diabetes mellitus Iron deficiency EGD 05/23/19 at [facility]; discont supp iron & vit c 02/05/2020; Hgb stable and iron constipating; she will obtain dietarily Lipoma Lipoma of arm YARELY (obstructive sleep apnea) Peptic ulcer of duodenum [facility] Path reports upper endoscopy; RX Carafate Renal calculi Non obstructive per CT Restrictive lung disease (~03/2014) PFTs validated 04/04/2014-->see scanned docs Right carpal tunnel syndrome Sciatica of right side without back pain RX Medrol Spinal stenosis, lumbar Trigger finger, right middle finger Injection: 05/04/2022 Surgical History Biopsy, Temporal Artery (01/18/15) DR.C YOUNG Colonoscopy - [facility] (08/14/16) History of carpal tunnel repair Left- 1998 Right- 2017 History of shoulder surgery Right shoulder repair - 2004 History of total abdominal hysterectomy and bilateral salpingo-oophorectomy (~02/1999) History of total bilateral knee replacement History of total knee arthroplasty bilateral Family History Mother Heart disease Father Heart disease Lung cancer Brother Heart disease AAA (abdominal aortic aneurysm, ruptured) Brother Obesity Son No problems noted. Daughter Stillborn, abnormal Daughter No problems noted. 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 [employer] Pets and animals: Yes Pets and animals: cat(s) Sexually active: No Do you think of yourself as: straight/heterosexual Current gender identity: female What is your relationship status?: How often do you talk on the phone with friends or family?: once per week How often do you get together with friends or relatives?: once per week Panel score (0-1 are the most socially isolated patients): 0 What type of physical activity do you participate in: none and sedentary lifestyle Special jakob needs: No Agree to transfusion: Yes Seatbelt use: always In current or past relationships, have you been: made to feel afraid Do you feel safe at home: Yes Do you feel safe in your relationship?: Yes Additional Social history: per preop: Lives with son Abdias in house trailer. He works. He never left home. She is on home oxygen. Spends most of her day watching TV, sitting on couch. Has a cat. Never smoked. Has been 3 times. 2 husbands have , from one. Daughter lives in [place] with her 8 kids.
--- NOTE | 2022-07-24 10:49 | PT.INIE ---
PT Notes Visit Reasons: Congestive heart failure Physical Therapy Inpatient Initial Evaluation Date: 07/24/22 Referring Doctor: Myah Victor PT Orders: PT CONSULT: Non-urgent Precautions: Fall. Standard. Patient Profile/Admitting Diagnosis: Mohan is 76 yo female that presented to the ER on 07/23/22 for weight gain and increasing edema. She is on 4L oxygen at baseline. Being treated for congestive heart failure. PMHX: All Active Problems?(Updated 07/23/22 @ 15:28 by Myah Victor NP) Discharge planning issues (Acute) CKD (chronic kidney disease) (Chronic) At high risk for skin breakdown (Acute) Impaired instrumental activities of daily living (Acute) Deficit in activities of daily living (ADL) (Acute) Hyperuricemia (Acute) Bradycardia (Acute) Gout (Chronic) CKD stage 4 due to type 2 diabetes mellitus (Acute) Respiratory failure with hypoxia and hypercapnia (Acute) Obstructive sleep apnea treated with BiPAP (Acute) CHF (congestive heart failure) (Acute 02/23/14) Preserved EF (10/2020 & 08/2021 ECHO)Obstructive sleep apnea (Chronic 02/23/14) Sleep Med Referral, 04/17/2019-->Very severe YARELY; CPAP ([employer]) with continuous O2, new Panda C-Pap 01/2021Type II diabetes mellitus (Chronic) Hypertension (Chronic) Hyperlipidemia (Chronic) Atrial fibrillation (Chronic) ApixabanAnemia (Chronic) Pulmonary hypertension (Chronic) Dependence on supplemental oxygen (Chronic) YARELY + Pulm HTNPalliative care status (Chronic) Full code status (Chronic) Chronic low back pain (Chronic 07/24/15) CT-lumbar spine 2019-- Severe multilevel degenerative changes in the lumbar spine resulting in neural foraminal and central spinal canal stenosis.Chronic anticoagulation (Chronic) AF--ApixabanRisk for falls (Chronic) Sedentary lifestyle (Chronic) B12 deficiency (Chronic) Start B12 injections; elevated MCVChronic respiratory failure with hypercapnia (Chronic) Obesity hypoventilation syndrome (Chronic) Obesity + Severe YARELY + Chronic HypercapniaDependent on walker for ambulation (Chronic) Hypomagnesemia (Acute ~07/2021) Mild mitral valve regurgitation (Acute ~08/2021) ECHOTrace tricuspid valve regurgitation (Acute ~08/2021) ECHO Medical History? Adult body mass index 50.0-59.9 Carpal tunnel syndrome, bilateral (12/17/16) Dietary counseling reviewed sodium levels in her food, how to count mg, goal of 1500 mg daily due to CHF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 Folate deficiency Low 12/2018; resolved 05/2019 labs; discontinued 02/05/2020Gout attack (~10/2020) R podagra, first attack 10/2020-->treated with colchine, effectiveh/o elbow fx H/O fracture of nose H/O rotator cuff tear Heme + stool [facility] [place] [facility] Upper GI Endoscopy Peptic Duodenitis (pathology report); repeat hemoccults NEG 11/2019HTN (hypertension) Insulin dependent diabetes mellitus Iron deficiency EGD 05/23/19 at [facility]; discont supp iron & vit c 02/05/2020; Hgb stable and iron constipating; she will obtain dietarilyLipoma Lipoma of arm YARELY (obstructive sleep apnea) Peptic ulcer of duodenum [facility] Path reports upper endoscopy; RX CarafateRenal calculi Non obstructive per CTRestrictive lung disease (~03/2014) PFTs validated 04/04/2014-->see scanned docsRight carpal tunnel syndrome Sciatica of right side without back pain RX MedrolSpinal stenosis, lumbar Trigger finger, right middle finger Injection: 05/04/2022 Social History/Home Situation: Lives with son in mobile home, has 4 WING with bilateral rails, on 4L O2 at baseline. Has wheelchair and lift recliner. Ambulates only short distances in the home (estimates 20-30'), and does not venture out into the community. Has been working with PT on improving her walking. She suffered 2 recent falls, one while managing the stairs into her home. Equipment Owned/DME: FWW, cane, wheelchair Subjective: Patient is agreeable to PT. States that she was able to get from bed to chair without any real difficulty. Objective: General Observation: Seated in chair at time of consult, with marino catheter, IV in LUE, on supplemental O2 at 4LPM via nasal cannula. Mental Status: A&O x3 ROM: Right Upper Extremity: Shoulder Flexion 120*. Elbow flexion WFL. Wrist flexion WFL. Opening and closing of hand WFL. Left Upper Extremity: Shoulder Flexion 150*. Shoulder abduction WFL. Elbow flexion WFL. Wrist flexion WFL. Opening and closing of hand WFL. Right Lower Extremity: Hip flexion WFL. Hip abduction WFL. Knee flexion WFL. Ankle dorsiflexion WFL. Ankle plantarflexion WFL. Left Lower Extremity: Hip flexion WFL. Hip abduction WFL. Knee flexion WFL. Ankle dorsiflexion WFL. Ankle plantarflexion WFL. Strength: Right Upper Extremity: Shoulder flexion 3-/5. Elbow flexors 4+/5. Triceps 4-/5. Supervisor [employer] weak but equal. Left Upper Extremity: Shoulder flexion 4-/5. Elbow flexors 4+/5. Triceps 4-/5. Super[employer] weak but equal. Right Lower Extremity: Hip flexion 3/5 or greater. Unable to tolerate overpressure. Knee extension 4/5. Knee flexion 4/5. Ankle DF 3/5 or greater. Left Lower Extremity: Hip flexion 3/5 or greater. Unable to tolerate overpressure. Knee extension 4/5. Knee flexion 4/5. Ankle DF 3/5 or greater. Sensation: Intact as to pain and pressure on bilateral lower extremities. Hypersensitive to pressure due to LE edema per patient. Bed Mobility/Transfers: Sit to stand:supervision Stand to sit: supervision, assist for lines Gait: Ambulated 20 ft in room with CRISTOFER BHAKTA. Demonstrates good safety awareness with lines. Stairs: Not assessed Balance: Static Sitting: Normal Dynamic Sitting: Good Static Standing: Good Dynamic Standing: Good Vitals: BP 122/69, HR 60, SaO2 91% on 4LMP at rest. Post-ambulation, HR 70, SaO2 93%. Special Tests: Mobility Limitations Standardized Measure [facility] AM-PAC 6 clicks Basic Mobility Inpatient Short Form: Raw Score: 18 CMS Score: 47% Informed Consent/Education: Patient instructed in purpose of PT consult and plan of care. Assessment: Patient presents with clinical signs and symptoms consistent with current/admitting diagnoses that have resulted to mobility limitations, gait instability, generalized weakness, and impairment of motor control as demonstrated by the following impairment level findings: 1. Decreased strength to all major muscle groups 2. Impaired sitting/standing balance 3. Impaired activity tolerance 4. Limitation of joint range of motion in right shoulder Impairments are contributing to the following functional limitations: 1. Dependent bed mobility skills 2. Increased dependence with transfers 3. Inability to safely ambulate without assistive device and physical assistance 4. Increase completion time for mobility ADL performance 5. Increased fall risk 6. Inability to negotiate steps alone safely Patient is assessed as a Moderate complexity based on the following: History: 76 year old female with impairment level findings, functional limitations, and past medical history as indicated above Examination: Demonstrable impairment in strength, balance, and mobility level with underlying impairments and functional limitations as documented above Presentation: Evolving Decision Making: Moderate complexity Goals: Goals x1 week 1. Supine-Sit: SBA 2. Sit-Supine: SBA 3. Sit-Stand: independent 4. Stand-Sit: independent 5. Bed-Chair: independent 6. Chair-Bed: independent 7. Gait: SBA on level surface with use of least restrictive device for 30 feet 8. Good static and dynamic standing balance/tolerance Plan of Care/Treatment Plan: 1-2x/day, 7 days/week x1 week. Plan of care has been reviewed with the METAL WORKER providing the service under Physical Therapy direction. Initiate Physical Therapy intervention for strengthening, bed mobility, transfers, gait, stairs, balance training, and use of assistive device. Discharge Plan DISCHARGE RECOMMENDATIONS: Home with services. Will likely require ambulance transfer home to manage steps into home. TREATMENT CODE/TIME: 10:50 - 11:15 ([id number]) Thank you for the opportunity to participate in the care of this patient. Micki Lord, PT, DPT [facility] [place], [place]
[2022-07-24] MEDS: Insulin Aspart 300 UNITS/3 ML PEN SC ×2 (11:55→17:14)
--- NOTE | 2022-07-24 13:48 | CHAPLAIN ---
Mohan explained that she came into the ED yesterday morning and then was admitted in the evening. She found the bed uncomfortable but said she slept ok. She's waiting to hear back from Myah Victor, SENIOR TECHNICAL WRITER Hospitalist to see if she'll be going home today. Mohan was a patient here in May, so knows some of the staff. She is pleasant and engages with staff. Mohan lives at home with he son who is supportive. She's waiting to see if her [employer] application is approved and is hoping to have a ramp built at her house so she can get out easier. She uses a walking for getting around.
[2022-07-24 15:30] VITALS: BP 130/72; PULSE 69; RESP 17; TEMP 36.4; O2SAT 94
--- NOTE | 2022-07-24 18:18 | W.PM.PROGNOT ---
Date of Service Date of service: 07/24/22 Time of Service: 18:19 Assessment and Plan Assessment and plan (1) CHF (congestive heart failure): Status: Acute Assessment and plan: bumex drip, received metolazone and albumin with good diuresis, output 3600 today, weight down from 113.5 to 112.8 kg continue to follow I&O, daily weights, can have marino for accurate I&O limited echo completed The left ventricle is normal size. The left ventricular systolic function is normal. The left ventricular ejection fraction is within the normal range. There is normal left ventricular wall thickness. LVEF is 55% Qualifiers: Heart failure type: unspecified Heart failure chronicity: chronic Qualified Code(s): I50.9 - Heart failure, unspecified (2) Obstructive sleep apnea treated with BiPAP: Status: Acute Assessment and plan: continue home therapy while hospitalized. son to bring trilogy unit in. (3) Chronic anticoagulation: Status: Chronic Assessment and plan: on apixaban for chronic atrial fibrillation. (4) Type II diabetes mellitus: Status: Chronic Assessment and plan: continue diabetic diet with sliding scale coverage ac/hs continue home medications A1C 7.8 in Mar 2022 Qualifiers: Diabetes mellitus predatory animal exterminator insulin use: with predatory animal exterminator use Diabetes mellitus complication status: with kidney complications Diabetes mellitus complication detail: with chronic kidney disease Chronic kidney disease stage: stage 4 (severe) Qualified Code(s): E11.22 - Type 2 diabetes mellitus with diabetic chronic kidney disease; N18.4 - Chronic kidney disease, stage 4 (severe); Z79.4 - [facility] (current) use of insulin (5) CKD (chronic kidney disease): Status: Chronic Assessment and plan: creatinine stable and at baseline. avoid nephrotoxic drugs. follow closely while diuresing Qualifiers: Chronic kidney disease stage: stage 4 (severe) Qualified Code(s): N18.4 - Chronic kidney disease, stage 4 (severe) (6) Discharge planning issues: Status: Acute Assessment and plan: case management following palliative care consulted in past for goals of care and to review code status, patient wishes for full code past admission, declined longterm facility despite significant physical decline and worsening respiratory status, she was discharged home discussed with Dr Varner Subjective Subjective Patient reports: no new complaints, tolerating liquids well, tolerating a regular diet, shortness of breath (with activity) and afebrile Interval history since last seen: legs still swollen Exam Const General: cooperative, comfortable and no acute distress Nutritional Appearance: overweight Orientation: alert, awake and oriented x3 HENMT Head: normal to inspection, normocephalic and atraumatic Mouth: oral mucosae normal Chest Chest: normal inspection of the chest Resp Effort & Inspection: normal respiratory effort Auscultation: diminished lung sounds (bases bilaterally) Cardio Rate: regular rate GI Inspection: normal to inspection Palpation: soft Auscultation: normal bowel sounds Neuro General: patient alert, patient awake and patient oriented x3 (at baseline) Cognition: normal cognition Extrem General: normal to inspection and pedal edema Psych Mental Status: mental status grossly normal Speech and Movement: speech and movement normal Mood: congruent mood Affect: normal affect Objective Last Vital Signs Temp 36.4 C L 07/24/22 15:30 Pulse 69 07/24/22 15:30 Resp 17 07/24/22 15:30 BP 130/72 07/24/22 15:30 Pulse Ox 94 07/24/22 15:30 Laboratory Results - last 24 hr 07/24/22 07/24/22 07/24/22 06:38 06:38 06:38 WBC 6.23 RBC 3.26 L Hgb 9.9 L Hct 32.6 L MCV 100 H MCH 30.4 MCHC 30.4 L RDW 17.5 H Plt Count 194 MPV 9.8 Immature Gran % 0.2 Neutrophils % 66.9 Lymphocytes % 20.2 Monocytes % 8.2 Eosinophils % 4.0 Basophils % 0.5 Nucleated RBC % 0.0 Absolute Neutrophils 4.17 Absolute Lymphocytes 1.26 Absolute Monocytes 0.51 Absolute Eosinophils 0.25 Absolute Basophils 0.03 Sodium 141 Potassium 3.7 Chloride 99 Carbon Dioxide 38.0 H Anion Gap 4.0 BUN 27 H Creatinine 2.0 H Est GFR (CKD-EPI 2020) 25.57 Glucose 123 H Calcium 9.4 Magnesium 1.6 L Time Spent with Patient Time Spent with Patient: 35-49 minutes Time was spent: preparing to see the patient(eg.review tests), obtaining and/or reviewing separately otained hiistory, ordering medications,tests, procedures, indepentently interpreting results and counseling the patient
[2022-07-24] MEDS: Atorvastatin 40 MG TAB 80 MG PO (20:41)
[2022-07-24] MEDS: Insulin Glargine 300 UNITS/3 ML PEN 10 UNITS SC (20:44)
[2022-07-24 23:50] VITALS: BP 144/76; PULSE 67; RESP 20; TEMP 36.5; O2SAT 95
[2022-07-25 06:35] VITALS: BP 136/75; PULSE 71; RESP 22; TEMP 36.8; O2SAT 93
[2022-07-25 06:43] LABS: Abs Immature Grans 0.02 10^3/uL (0.0-0.06); Absolute Basophil Count 0.06 10^3/uL (0.0-0.2); Absolute Lymphocyte Count 1.31 10^3/uL (1.2-3.4); Absolute Monocyte Count 0.63 10^3/uL (0.1-0.8); Absolute Neutrophil Count 4.69 10^3/uL (1.2-6.7); Basophils % 0.9; Eosinophils % 4.3; HCT 33.3 % (36.0-46.0); HGB 10.5 g/dL (11.2-15.7); Immature Grans % 0.3; Lymphocytes % 18.7; MCH 30.9 pg (27.0-33.0); MCHC 31.5 % (32.0-36.0); MCV 98 fL (80-95); MPV 10.4 fL (8.0-11.0); Neutrophils % 66.8; Platelet Count 208 10^3/uL (130-400); RDW 17.7 % (11.7-14.6); RDW-SD 63.4 fL; WBC 7.01 10^3/uL (4.4-10.8)
[2022-07-25 07:15] LABS: Anion Gap 1.9 mmol/L (3-11); BUN 34 mg/dL (7-18); CO2 41.1 mmol/L (21.0-32.0); CREATININE 2.2 mg/dL (0.55-1.02); Calcium 9.7 mg/dL (8.5-10.1); Chloride 95 mmol/L (98-107); Estimated GFR 22.81 (mL/min/1.73m2); Glucose 140 mg/dL (74-106); Magnesium 1.5 mg/dL (1.8-2.4); NT-proBNP 4755 pg/mL (<300); Sodium 138 mmol/L (136-145)
[2022-07-25] MEDS: Pantoprazole 40 MG TABCR PO (10:11)
[2022-07-25] MEDS: Calcium Carbonate 1.5 GM TAB PO ×2 (10:11→20:46)
[2022-07-25] MEDS: Magnesium Oxide 400 MG TAB PO (10:11)
[2022-07-25] MEDS: Cholecalciferol (Vitamin D3) 400 UNIT TAB PO ×2 (10:11→20:46)
[2022-07-25] MEDS: Nystatin POWDER 15 GM JAR TP ×2 (10:11→13:54)
[2022-07-25] MEDS: Docusate Sodium 100 MG CAP PO ×2 (10:11→20:46)
[2022-07-25] MEDS: Apixaban 5 MG TAB PO ×2 (10:11→20:46)
[2022-07-25] MEDS: Normal Saline Flush 10 ML SYR IVP ×2 (10:12→10:48)
[2022-07-25] MEDS: Allopurinol 100 MG TAB PO (10:12)
--- NOTE | 2022-07-25 10:28 | W.PM.PROGNOT ---
Date of Service Date of service: 07/25/22 Time of Service: 10:28 Assessment and Plan Assessment and plan (1) CHF (congestive heart failure): Status: Acute Assessment and plan: bumex drip discontinued, metolazone 5 mg daily started, Jardiance 10 mg oral daily started; output >4500 ml yesterday and as much as 3000 already today - weight down from 113.5 to 108.9 kg (ED wt 122.3 eroneous) loss of 4.6 kg daily weights, marino removed - voiding without difficulty - continue strict I&O limited echo completed The left ventricle is normal size. The left ventricular systolic function is normal. The left ventricular ejection fraction is within the normal range. There is normal left ventricular wall thickness. LVEF is 55% Qualifiers: Heart failure chronicity: chronic Heart failure type: unspecified Qualified Code(s): I50.9 - Heart failure, unspecified (2) Obstructive sleep apnea treated with BiPAP: Status: Acute Assessment and plan: continue home therapy while hospitalized. using home trilogy unit. (3) Chronic anticoagulation: Status: Chronic Assessment and plan: on apixaban for chronic atrial fibrillation. (4) Type II diabetes mellitus: Status: Chronic Assessment and plan: continue diabetic diet with sliding scale coverage ac/hs continue home medications A1C 7.8 in Mar 2022 Qualifiers: Chronic kidney disease stage: stage 4 (severe) Diabetes mellitus complication detail: with chronic kidney disease Diabetes mellitus complication status: with kidney complications Diabetes mellitus jack strip assembler insulin use: with longterm use Qualified Code(s): E11.22 - Type 2 diabetes mellitus with diabetic chronic kidney disease; N18.4 - Chronic kidney disease, stage 4 (severe); Z79.4 - prison (current) use of insulin (5) CKD (chronic kidney disease): Status: Chronic Assessment and plan: creatinine stable and at baseline. avoid nephrotoxic drugs. follow closely while diuresing Qualifiers: Chronic kidney disease stage: stage 4 (severe) Qualified Code(s): N18.4 - Chronic kidney disease, stage 4 (severe) (6) Discharge planning issues: Status: Acute Assessment and plan: case management following palliative care consulted in past for goals of care and to review code status, patient wishes for full code past admission, declined nursing home facility despite significant physical decline and worsening respiratory status, she was discharged home discussed with Dr Varner Subjective Subjective Patient reports: no new complaints, tolerating liquids well, tolerating a regular diet, voiding w/o difficulty (urinary catheter removed), bowel movement and afebrile; denies flatus, diarrhea, nausea, vomiting or shortness of breath Interval history since last seen: Mohan is doing well today, she is on her baseline oxygen requirement with is 4 LPM NC. She would like to go home, however still being on Bumex drip, we suggested we stop that and change to oral therapy and stay at least another day. She is in agreement with this plan. Exam Const General: cooperative, comfortable and no acute distress Nutritional Appearance: overweight Orientation: alert, awake and oriented x3 HENMT Head: normal to inspection, normocephalic and atraumatic Mouth: oral mucosae normal Chest Chest: normal inspection of the chest Resp Effort & Inspection: normal respiratory effort Auscultation: diminished lung sounds (bases bilaterally) Cardio Rate: regular rate GI Inspection: normal to inspection Palpation: soft Auscultation: normal bowel sounds Neuro General: patient alert, patient awake and patient oriented x3 (at baseline) Cognition: normal cognition Extrem General: normal to inspection and pedal edema Psych Mental Status: mental status grossly normal Speech and Movement: speech and movement normal Mood: congruent mood Affect: normal affect Objective Last Vital Signs Temp 36.8 C 07/25/22 06:35 Pulse 71 07/25/22 06:35 Resp 22 07/25/22 06:35 BP 136/75 07/25/22 06:35 Pulse Ox 93 07/25/22 06:35 Laboratory Results - last 24 hr 07/25/22 07/25/22 06:10 06:10 WBC 7.01 RBC 3.40 L Hgb 10.5 L Hct 33.3 L MCV 98 H MCH 30.9 MCHC 31.5 L RDW 17.7 H Plt Count 208 MPV 10.4 Immature Gran % 0.3 Neutrophils % 66.8 Lymphocytes % 18.7 Monocytes % 9.0 Eosinophils % 4.3 Basophils % 0.9 Nucleated RBC % 0.0 Absolute Neutrophils 4.69 Absolute Lymphocytes 1.31 Absolute Monocytes 0.63 Absolute Eosinophils 0.30 Absolute Basophils 0.06 Sodium 138 Potassium 4.0 Chloride 95 L Carbon Dioxide 41.1 H Anion Gap 1.9 L BUN 34 H Creatinine 2.2 H Est GFR (CKD-EPI 2020) 22.81 Glucose 140 H Calcium 9.7 Magnesium 1.5 L NT-Pro-B Natriuret Pep 4755 H Time Spent with Patient Time Spent with Patient: 25-34 minutes Time was spent: preparing to see the patient(eg.review tests), ordering medications,tests, procedures, referring, communicating with other health healthcare recruiter, indepentently interpreting results, counseling the patient and care coordination
[2022-07-25] MEDS: Normal Saline 500 ML 100 ML IV (10:48)
[2022-07-25] MEDS: MAGNESIUM SULFATE 4 GM/100 ML BAG IVPB (10:48)
[2022-07-25] MEDS: Insulin Aspart 300 UNITS/3 ML PEN SC ×2 (12:21→17:02)
[2022-07-25] MEDS: Torsemide 20 MG TAB 80 MG PO (12:35)
[2022-07-25] MEDS: metOLazone 2.5 MG TAB 5 MG PO (12:35)
[2022-07-25] MEDS: Acetaminophen 500 MG TAB PO (13:04)
--- NOTE | 2022-07-25 13:54 | PT.INTREAT ---
PT Notes Visit Reasons: Congestive heart failure Inpatient Physical Therapy Treatment Note [facility] Date: 07/25/22 SUBJECTIVE: Mohan states that she is hoping to go home tomorrow. She reports feeling better. OBJECTIVE: [] BED MOBILITY/TRANSFERS Sit-stand: SBA Stand-sit: SBA GAIT Assistive Device:FWW Weight bearing:full Assist:SBA Distance: 15'x2 THEREX: performed a global LE strengthening routine while sitting including AP, LAQ, hip flex, hip ab/add x 10 ea. Declined mini squats today stating she was too tired. ASSESSMENT: tolerated session well. Able to transfer safely PLAN: will continue to progress strength and functional mobility per PT POC TREATMENT CODE/TIME: 25 min. TPx1, TAx1
[2022-07-25 15:11] VITALS: O2SAT 94
[2022-07-25 15:13] VITALS: BP 117/76; PULSE 83; RESP 20; TEMP 36.5; O2SAT 94
[2022-07-25] MEDS: Empaglifozin 10 MG TAB PO (16:19)
[2022-07-25] MEDS: Mylanta Suspension 30 ML CUP PO (18:48)
[2022-07-25] MEDS: Atorvastatin 40 MG TAB 80 MG PO (20:46)
[2022-07-25] MEDS: Insulin Glargine 300 UNITS/3 ML PEN 10 UNITS SC (20:47)
[2022-07-25 23:35] VITALS: BP 150/67; PULSE 75; RESP 22; TEMP 36.2; O2SAT 93
--- NOTE | 2022-07-26 03:12 | NUR.NOTE ---
Pt refusing to wear CPAP overnight. cites that it is hurting her face. attempted to adjust straps with no luck. oxygen in place, wctm.
[2022-07-26 06:26] VITALS: BP 146/68; PULSE 71; RESP 24; TEMP 37; O2SAT 93
[2022-07-26 07:36] LABS: Abs Immature Grans 0.02 10^3/uL (0.0-0.06); Absolute Basophil Count 0.06 10^3/uL (0.0-0.2); Absolute Eosinophil Count 0.36 10^3/uL (0.0-0.7); Absolute Lymphocyte Count 1.29 10^3/uL (1.2-3.4); Absolute Monocyte Count 0.68 10^3/uL (0.1-0.8); Absolute Neutrophil Count 5.35 10^3/uL (1.2-6.7); Basophils % 0.8; Eosinophils % 4.6; HCT 34.8 % (36.0-46.0); HGB 10.8 g/dL (11.2-15.7); Immature Grans % 0.3; Lymphocytes % 16.6; MCH 30.2 pg (27.0-33.0); MCV 97 fL (80-95); MPV 9.9 fL (8.0-11.0); Monocytes % 8.8; Neutrophils % 68.9; Platelet Count 216 10^3/uL (130-400); RBC 3.58 10^6/uL (3.93-5.22); RDW 17.2 % (11.7-14.6); WBC 7.76 10^3/uL (4.4-10.8)
[2022-07-26] MEDS: Apixaban 5 MG TAB PO (07:40)
[2022-07-26] MEDS: Calcium Carbonate 1.5 GM TAB PO (07:40)
[2022-07-26] MEDS: Docusate Sodium 100 MG CAP PO (07:40)
[2022-07-26] MEDS: metOLazone 2.5 MG TAB 5 MG PO (07:40)
[2022-07-26] MEDS: Empaglifozin 10 MG TAB PO (07:40)
[2022-07-26] MEDS: Torsemide 20 MG TAB 80 MG PO (07:40)
[2022-07-26] MEDS: Pantoprazole 40 MG TABCR PO (07:40)
[2022-07-26] MEDS: Magnesium Oxide 400 MG TAB PO (07:40)
[2022-07-26] MEDS: Cholecalciferol (Vitamin D3) 400 UNIT TAB PO (07:41)
[2022-07-26] MEDS: Allopurinol 100 MG TAB PO (07:41)
[2022-07-26 07:44] LABS: Anion Gap 5.3 mmol/L (3-11); BUN 48 mg/dL (7-18); CO2 42.7 mmol/L (21.0-32.0); CREATININE 2.5 mg/dL (0.55-1.02); Calcium 9.9 mg/dL (8.5-10.1); Chloride 89 mmol/L (98-107); Estimated GFR 19.56 (mL/min/1.73m2); Glucose 142 mg/dL (74-106); Magnesium 2.2 mg/dL (1.8-2.4); Potassium 3.8 mmol/L (3.5-5.1); Sodium 137 mmol/L (136-145)
[2022-07-26] MEDS: Nystatin POWDER 15 GM JAR TP (07:45)
[2022-07-26] MEDS: Insulin Aspart 300 UNITS/3 ML PEN SC (07:45)
[2022-07-26] MEDS: Acetaminophen 500 MG TAB PO (08:32)
--- NOTE | 2022-07-26 10:10 | W.PM.DS.N ---
Date of service: 07/26/22 Time of Service: 10:10 DS: Diagnosis Discharge Diagnosis (1) CHF (congestive heart failure): Status: Acute (2) Obstructive sleep apnea treated with BiPAP: Status: Acute (3) Chronic anticoagulation: Status: Chronic (4) Type II diabetes mellitus: Status: Chronic (5) CKD (chronic kidney disease): Status: Chronic (6) Discharge planning issues: Status: Acute Discharge Plan Disposition Patient Disposition: Home W/Home Health Services Condition: Improving Discharge Details Reason For Visit: CHF Admit Date/Time: 07/23/22 15:28 Admit Provider: Soco Varner Attending Provider: Soco Varner Primary Care Provider: Laverne Sung Hospital Course Hospital Course: This is a 76-year-old female patient with complex medical history including obstructive sleep apnea treated with BiPAP congestive heart failure with preserved ejection fraction at 50 to 55% chronic anticoagulation secondary to atrial fibrillation diabetes mellitus type 2 with a hemoglobin A1c of 7.8 who presented to the emergency department with hypoxic respiratory failure thought to be multifactorial.? Congestive heart failure was treated with aggressive diuresis ultimately requiring a Bumex drip.? She had had her Trilogy machine brought in from home and she did improve on it.?? She did undergo pulmonary function testing on May 15, 2022.? She diuresed well, ultimately loosing about 6 kg.? Her home medication was changed to start Jardiance, Metolazone and toresemide and discontinue Bumex. She did have more than 24 hours in the hospital and did well with these medications.? Physical therapy followed closely and she was safely reambulated She remained afebrile and vital signs stable. She is back to her baseline oxygen requirement and doing well.? She is discharged to home by [facility]. She will have resumption of home health nursing PT, OT and CHECKERER HAND with a tight schedule for nursing with her mutlitple hospitalizations. She can uses asssitance adjusting to and understanding her new medications for CHF, how to perform daily weights and log them, and nutrition education. Early recognition of CHF should be reported to her PCP immediately in effort to keep her well and at home. Discussed with Dr Varner Home Meds and New Rx's Prescriptions: New Jardiance 10 mg Tablet 10 mg PO QAM Qty: 30 0RF metolazone 2.5 mg Tablet 5 mg PO DAILY Qty: 30 0RF torsemide 20 mg Tablet 80 mg PO DAILY Qty: 30 0RF Continued insulin aspart U-100 [Novolog FlexPen U-100 Insulin] 100 unit/mL (3 mL) insulin pen See Rx Instructions subcut AC MDD 30 units Qty: 90 3RF Rx Instructions: 2-10 units subcut before meals; For diabetes as directed with meals sliding scale: 100:0units 101-150: 2 units 151-200: 4 units 201-250: 6 units 251-300: 8 units over 300: 10 units (DME) FreeStyle Bradley 2 Sensor Kit See Rx Instructions .ROUTE .MEDSUPPLY Qty: 2 11RF Rx Instructions: As directed; on insulin AC & HS for goal A1C 8% (DME) 3XL incontinence briefs See Rx Instructions .Route .MEDSUPPLY Qty: 30 2RF Rx Instructions: Uses one nightly at bedtime for urge incontinence acetaminophen [Tylenol Extra Strength] 500 mg tablet 500 mg PO Q6H PRN amlodipine 5 mg tablet 5 mg PO DAILY Qty: 90 3RF Rx Instructions: Blood pressure magnesium oxide 400 mg (241.3 mg magnesium) tablet 400 mg PO DAILY Qty: 90 3RF Rx Instructions: Low magnesium (DME) BD Eclipse Luer-Timi 3 mL 23 x 1 syringe See Rx Instructions .ROUTE .MEDSUPPLY Qty: 15 0RF Rx Instructions: for use with monthly self administered B12 injections docusate sodium [Colace] 100 mg capsule 100 mg PO BID Eliquis 5 mg tablet 5 mg PO BID Qty: 180 3RF Hold Instructions: Resume on 03/18/22. pantoprazole [Protonix] 40 mg tablet,delayed release (DR/EC) 40 mg PO DAILY Qty: 90 3RF Rx Instructions: h/o GI bleed, stomach protection (DME) Oxygen Tank See Rx Instructions .ROUTE .MEDSUPPLY Qty: 1 0RF Rx Instructions: 2-5L via NC continuous cyanocobalamin (vitamin B-12) 1,000 mcg/mL kit 1,000 mcg subcut QMONTH Qty: 1 11RF Rx Instructions: May self-administer at home for low B12 fluticasone propionate 50 mcg/actuation spray,suspension 1 spray NS DAILY PRN (Reason: allergy symptoms) Qty: 15.8 0RF atorvastatin 80 mg tablet 80 mg PO QHS Qty: 90 3RF Rx Instructions: Cholesterol (DME) Wheelchair See Rx Instructions .Route .MEDSUPPLY Qty: 1 0RF Rx Instructions: As directed nystatin 100,000 unit/gram powder 1 applic topical TID Qty: 60 1RF Rx Instructions: Apply liberal amount to skin under breast, groin folds, abd folds for 2-3 weeks or until rash resolved. insulin glargine 100 unit/mL (3 mL) insulin pen 20 unit subcut HS allopurinol 100 mg tablet 100 mg PO DAILY Qty: 90 0RF Rx Instructions: Gout prevention (DME) pen needle, diabetic [BD Ultra-Fine Mini Pen Needle] 31 gauge x 3/16 needle See Rx Instructions .ROUTE .MEDSUPPLY Qty: 100 6RF Rx Instructions: for insulin administration qid dx E11.22 #360 Refill 3 Calcium 600 with Vitamin D3 600 mg(1,500mg) -400 unit Tablet,Chewable 1 tab PO BID Discontinued bumetanide 1 mg tablet 1 mg PO BID Qty: 180 3RF Hold Instructions: 07/08/22 dose increase d/t weight gain (?temp increase) Rx Instructions: Diuretic for heart and swelling or as directed bumetanide 1 mg tablet 1 mg PO .COMPLEX Rx Instructions: 2mg orally AM; 1mg orally (afternoon-pt takes second dose in afternoons). 1mg BID placed on hold d/t increased weight gain. Discharge Instructions Instructions: Metolazone (By mouth), Torsemide (By mouth), Empagliflozin (By mouth), Heart Failure (DC) Additional Instructions: Start Torsemide, Metolazone and Jardiance; stop Bumex. Continue oxygen and BiPap at night. Home Health services will be resumed. Stand Alone Forms: Nursing Discharge Form Referrals: Laverne Sung CONSTRUCTION SALES MANAGER [Primary Care Provider] - (Please call Wednesday to make a follow up appointment for 1-2 weeks. ) Activity:: Activity as Tolerated Equipment/Supplies:: Oxygen (L/min Below) Diet:: Low Sodium Discharge Orders Discharge Orders: Discharge Order (Routine); Ordered 07/26/22 Ordered By: Elke Almanzar Discharge Data Discharge Date/Time-TO BE ENTERED AT DEPARTURE: 07/26/22 11:00 DS: Summary Time Spent with Patient providing and/or coordinating discharge services: Greater than 30 minutes Status at Discharge Functional status at discharge: uses cane/walker Overall status at discharge: patient is progressing back to baseline Mental Status: mental status grossly normal Speech and Movement: speech and movement normal Mood: congruent mood Affect: normal affect Exam Const General: cooperative, comfortable and no acute distress Nutritional Appearance: overweight Orientation: alert, awake and oriented x3 HENMT Head: normal to inspection, normocephalic and atraumatic Mouth: oral mucosae normal Chest Chest: normal inspection of the chest Resp Effort & Inspection: normal respiratory effort Auscultation: diminished lung sounds (bases bilaterally) Cardio Rate: regular rate GI Inspection: normal to inspection Palpation: soft Auscultation: normal bowel sounds Neuro General: patient alert, patient awake and patient oriented x3 (at baseline) Cognition: normal cognition Extrem General: normal to inspection and pedal edema Psych Mental Status: mental status grossly normal Speech and Movement: speech and movement normal Mood: congruent mood Affect: normal affect DS: Data Vitals/I&O Vitals and I&O: Vital Signs Temperature 37.0 C 07/26/22 06:26 Temperature Source Tympanic 07/26/22 06:26 Pulse 71 07/26/22 06:26 Pulse Rhythm Regular 07/26/22 09:22 Pulse 66 07/23/22 16:16 Respiratory Rate 24 07/26/22 06:26 Respiratory Effort Normal 07/26/22 09:22 Respiratory Depth Normal 07/26/22 09:22 Respiratory Pattern Normal 07/26/22 09:22 Blood Pressure 146/68 H 07/26/22 06:26 Blood Pressure Mean 93 07/23/22 16:16 Pulse Oximetry 93 07/26/22 06:26 Oxygen Delivery Method Nasal Cannula 07/26/22 06:26 Oxygen Flow Rate 4 07/26/22 06:26 Pain Level 4 07/26/22 08:32 Comment Pt. denies pain at this time. 07/25/22 07:44 Intake & Output 07/25/22 07/25/22 07/26/22 11:59 23:59 11:59 Intake Total 29.800 / 523.033 493.233 / 523.033 250 / 250 Output Total 2600 / 3475 875 / 3475 1525 / 1525 Balance -2570.200 / -2951.967 -381.767 / -2951.967 -1275 / -1275 Weight 111.1 kg 108.9 kg 107.3 kg Intake: IV 29.800 / 43.033 13.233 / 43.033 Oral 480 / 480 250 / 250 Output: Urine 2600 / 3475 875 / 3475 1525 / 1525 Other: Urine Color Pale Pale Yellow Urine Appearance Clear Clear Clear Urine Odor Normal Normal Stool Size Moderate Moderate Stool Characteristics Soft Soft Formed Formed Brown Voiding Methods Bedside Commode Bedside Commode Data Completed and Pending Labs on day of discharge: Labs from last 24 hours 07/26/22 07/26/22 07:05 07:05 WBC 7.76 RBC 3.58 L Hgb 10.8 L Hct 34.8 L MCV 97 H MCH 30.2 MCHC 31.0 L RDW 17.2 H Plt Count 216 MPV 9.9 Immature Gran % 0.3 Neutrophils % 68.9 Lymphocytes % 16.6 Monocytes % 8.8 Eosinophils % 4.6 Basophils % 0.8 Nucleated RBC % 0.0 Absolute Neutrophils 5.35 Absolute Lymphocytes 1.29 Absolute Monocytes 0.68 Absolute Eosinophils 0.36 Absolute Basophils 0.06 Sodium 137 Potassium 3.8 Chloride 89 L Carbon Dioxide 42.7 H Anion Gap 5.3 BUN 48 H Creatinine 2.5 H Est GFR (CKD-EPI 2020) 19.56 Glucose 142 H Calcium 9.9 Magnesium 2.2 PFSH All Active Problems (Updated 07/24/22 @ 08:34 by Tong Cantrell NP) Discharge planning issues (Acute) CKD (chronic kidney disease) (Chronic) At high risk for skin breakdown (Acute) Impaired instrumental activities of daily living (Acute) Deficit in activities of daily living (ADL) (Acute) Hyperuricemia (Acute) Bradycardia (Acute) Gout (Chronic) CKD stage 4 due to type 2 diabetes mellitus (Acute) Respiratory failure with hypoxia and hypercapnia (Acute) Obstructive sleep apnea treated with BiPAP (Acute) CHF (congestive heart failure) (Acute 02/23/14) Preserved EF (10/2020 & 08/2021 ECHO) Obstructive sleep apnea (Chronic 02/23/14) Sleep Med Referral, 04/17/2019-->Very severe YARELY; CPAP ([facility]) with continuous O2, new Panda C-Pap 01/2021 Type II diabetes mellitus (Chronic) Hypertension (Chronic) Hyperlipidemia (Chronic) Atrial fibrillation (Chronic) Apixaban Anemia (Chronic) Pulmonary hypertension (Chronic) Dependence on supplemental oxygen (Chronic) YARELY + Pulm HTN Palliative care status (Chronic) Full code status (Chronic) Chronic low back pain (Chronic 07/24/15) CT-lumbar spine 2019-- Severe multilevel degenerative changes in the lumbar spine resulting in neural foraminal and central spinal canal stenosis. Chronic anticoagulation (Chronic) AF--Apixaban Risk for falls (Chronic) Sedentary lifestyle (Chronic) B12 deficiency (Chronic) Start B12 injections; elevated MCV Chronic respiratory failure with hypercapnia (Chronic) Obesity hypoventilation syndrome (Chronic) Obesity + Severe YARELY + Chronic Hypercapnia Dependent on walker for ambulation (Chronic) Hypomagnesemia (Acute ~07/2021) Mild mitral valve regurgitation (Acute ~08/2021) ECHO Trace tricuspid valve regurgitation (Acute ~08/2021) ECHO Medical History Adult body mass index 50.0-59.9 Carpal tunnel syndrome, bilateral (12/17/16) Dietary counseling reviewed sodium levels in her food, how to count mg, goal of 1500 mg daily due to CHF 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 Folate deficiency Low 12/2018; resolved 05/2019 labs; discontinued 02/05/2020 Gout attack (~10/2020) R podagra, first attack 10/2020-->treated with colchine, effective h/o elbow fx H/O fracture of nose H/O rotator cuff tear Heme + stool [facility] [place] Peptic Duodenitis (pathology report); repeat hemoccults NEG 11/2019 HTN (hypertension) Insulin dependent diabetes mellitus Iron deficiency E[place] 05/23/19 at [facility]; discont supp iron & vit c 02/05/2020; Hgb stable and iron constipating; she will obtain dietarily Lipoma Lipoma of arm YARELY (obstructive sleep apnea) Peptic ulcer of duodenum [facility] Path reports upper endoscopy; RX Carafate Renal calculi Non obstructive per CT Restrictive lung disease (~03/2014) PFTs validated 04/04/2014-->see scanned docs Right carpal tunnel syndrome Sciatica of right side without back pain RX Medrol Spinal stenosis, lumbar Trigger finger, right middle finger Injection: 05/04/2022 Surgical History Biopsy, Temporal Artery (01/18/15) [facility] History of carpal tunnel repair Left- 1998 Right- 2017 History of shoulder surgery Right shoulder repair - 2004 History of total abdominal hysterectomy and bilateral salpingo-oophorectomy (~02/1999) History of total bilateral knee replacement History of total knee arthroplasty bilateral Family History Mother Heart disease Father Heart disease Lung cancer Brother Heart disease AAA (abdominal aortic aneurysm, ruptured) Brother Obesity Son No problems noted. Daughter Stillborn, abnormal Daughter No problems noted. 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 Pets and animals: Yes Pets and animals: cat(s) Sexually active: No Do you think of yourself as: straight/heterosexual Current gender identity: female What is your relationship status?: How often do you talk on the phone with friends or family?: once per week How often do you get together with friends or relatives?: once per week Panel score (0-1 are the most socially isolated patients): 0 What type of physical activity do you participate in: none and sedentary lifestyle Special jakob needs: No Agree to transfusion: Yes Seatbelt use: always In current or past relationships, have you been: made to feel afraid Do you feel safe at home: Yes Do you feel safe in your relationship?: Yes Additional Social history: per preop: Lives with son Abdias in house trailer. He works. He never left home. She is on home oxygen. Spends most of her day watching TV, sitting on couch. Has a cat. Never smoked. Has been 3 times. 2 husbands have , from one. Daughter lives in [place] with her 8 kids. Time Spent with Patient Time Spent with Patient: 45-69 minutes Time was spent: preparing to see the patient(eg.review tests), referring, communicating with other health physician primary care sports medicine, indepentently interpreting results and care coordination
--- NOTE | 2022-07-26 10:23 | CMDISCH_ITS ---
Date of service: 07/26/22 Time of Service: 10:23 LACE Index Scoring Tool Questions: Length of Stay (in days): 3 Was the patient admitted via the E.D.?: Yes Comorbidities: Diabetes w/o Complication, Congestive Heart Failure, with End Organ Damage, Chronic Pulmonary Disease and Liver or Renal Disease E.D. Visits: 3 Answers: Total Score: 14 Risk of Readmission: High Risk Care Management Discharge Plan Reason for Hospitalization: CHF Discharge Plan: Mohan is discharged home with resumption of [facility] RN/PT/OT and community supports. She is transported via EMS. Mohan will follow up with her community providers and discharge plan of care as prescribed. New RX's are transmitted to [facility] and covered by her insurance. Patient/Family Education Needs: Review discharge instructions, limitations, med ications and plan to follow up with community providers. Discuss ask me three and goals of self care. Services Needed at Discharge: Home Health Care Services (Resumption of [facility] services and [facility] services. CM notified [facility] and Transportation ([facility], coordinated by [facility])
--- NOTE | 2022-07-26 14:06 | PT.INTREAT ---
PT Notes Visit Reasons: Congestive heart failure Inpatient Physical Therapy Treatment Note [facility] Date: 07/26/22 SUBJECTIVE: Mohan states that she is hoping to go home today. OBJECTIVE: [] BED MOBILITY/TRANSFERS Sit-stand: SBA Stand-sit: SBA GAIT Assistive Device:FWW Weight bearing:full Assist:SBA Distance: 25'x2 THEREX: performed a global LE strengthening routine while sitting including AP, LAQ, hip flex, hip ab/add x 10 ea. mini squats x5 ASSESSMENT: tolerated session well. Is at baseline functionally PLAN: dc home with son TREATMENT CODE/TIME: 25 min. TPx1, TAx1
--- NOTE | 2022-07-30 17:49 | PT.INDS ---
Date of service: 07/27/22 PT Notes Visit Reasons: Congestive heart failure Physical Therapy Inpatient Discharge Summary Date: 07/26/2022 Dates of service: 07/24/2022 through 07/26/2022 This is a clinical summary of care provided for the duration of dates listed above. No charge was made in the completion of this documentation. Referring Doctor: Myah Victor PT Orders: PT CONSULT: Non-urgent Precautions: Fall. Standard. Patient Profile/Admitting Diagnosis:Lele Preston is 76 yo female that presented to the ER on 07/23/22 for weight gain and increasing edema. She is on 4L oxygen at baseline. Being treated for congestive heart failure. PMHX: All Active Problems?(Updated 07/23/22 @ 15:28 by Myah Victor, HAND MIXER) Discharge planning issues (Acute) CKD (chronic kidney disease) (Chronic) At high risk for skin breakdown (Acute) Impaired instrumental activities of daily living (Acute) Deficit in activities of daily living (ADL) (Acute) Hyperuricemia (Acute) Bradycardia (Acute) Gout (Chronic) CKD stage 4 due to type 2 diabetes mellitus (Acute) Respiratory failure with hypoxia and hypercapnia (Acute) Obstructive sleep apnea treated with BiPAP (Acute) CHF (congestive heart failure) (Acute 02/23/14) Preserved EF (10/2020 & 08/2021 ECHO)Obstructive sleep apnea (Chronic 02/23/14) Sleep Med Referral, 04/17/2019-->Very severe YARELY; CPAP ([facility]) with continuous O2, new Panda C-Pap 01/2021Type II diabetes mellitus (Chronic) Hypertension (Chronic) Hyperlipidemia (Chronic) Atrial fibrillation (Chronic) ApixabanAnemia (Chronic) Pulmonary hypertension (Chronic) Dependence on supplemental oxygen (Chronic) YARELY + Pulm HTNPalliative care status (Chronic) Full code status (Chronic) Chronic low back pain (Chronic 07/24/15) CT-lumbar spine 2019-- Severe multilevel degenerative changes in the lumbar spine resulting in neural foraminal and central spinal canal stenosis.Chronic anticoagulation (Chronic) AF--ApixabanRisk for falls (Chronic) Sedentary lifestyle (Chronic) B12 deficiency (Chronic) Start B12 injections; elevated MCVChronic respiratory failure with hypercapnia (Chronic) Obesity hypoventilation syndrome (Chronic) Obesity + Severe YARELY + Chronic HypercapniaDependent on walker for ambulation (Chronic) Hypomagnesemia (Acute ~07/2021) Mild mitral valve regurgitation (Acute ~08/2021) ECHOTrace tricuspid valve regurgitation (Acute ~08/2021) ECHO Medical History? Adult body mass index 50.0-59.9 Carpal tunnel syndrome, bilateral (12/17/16) Dietary counseling reviewed sodium levels in her food, how to count mg, goal of 1500 mg daily due to CHF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 Folate deficiency Low 12/2018; resolved 05/2019 labs; discontinued 02/05/2020Gout attack (~10/2020) R podagra, first attack 10/2020-->treated with colchine, effectiveh/o elbow fx H/O fracture of nose H/O rotator cuff tear Heme + stool [facility] Upper GI Endoscopy Peptic Duodenitis (pathology report); repeat hemoccults NEG 11/2019HTN (hypertension) Insulin dependent diabetes mellitus Iron deficiency EGD 05/23/19 at [facility]; discont supp iron & vit c 02/05/2020; Hgb stable and iron constipating; she will obtain dietarilyLipoma Lipoma of arm YARELY (obstructive sleep apnea) Peptic ulcer of duodenum [facility] Path reports upper endoscopy; RX CarafateRenal calculi Non obstructive per CTRestrictive lung disease (~03/2014) PFTs validated 04/04/2014-->see scanned docsRight carpal tunnel syndrome Sciatica of right side without back pain RX MedrolSpinal stenosis, lumbar Trigger finger, right middle finger Injection: 05/04/2022 Social History/Home Situation: Lives with son in mobile home, has 4 WING with bilateral rails, on 4L O2 at baseline. Has wheelchair and lift recliner. Ambulates only short distances in the home (estimates 20-30'), and does not venture out into the community. Has been working with HH PT on improving her walking. She suffered 2 recent falls, one while managing the stairs into her home. Equipment Owned/DME: FWW, cane, wheelchair Subjective:?Patient is agreeable to PT.? States that she was able to get from bed to chair without any real difficulty. Objective:? General Observation: Seated in chair at time of consult, with? marino catheter, IV in LUE, on supplemental O2 at 4LPM via nasal cannula. Mental Status: A&O x3 ROM: Right Upper Extremity: Shoulder Flexion 120*. Elbow flexion WFL. Wrist flexion WFL. Opening and closing of hand WFL. Left Upper Extremity: Shoulder Flexion 150*. Shoulder abduction WFL. Elbow flexion WFL. Wrist flexion WFL. Opening and closing of hand WFL. Right Lower Extremity: Hip flexion WFL. Hip abduction WFL. Knee flexion WFL. Ankle dorsiflexion WFL. Ankle plantarflexion WFL. Left Lower Extremity: Hip flexion WFL. Hip abduction WFL. Knee flexion WFL. Ankle dorsiflexion WFL. Ankle plantarflexion WFL. Strength: Right Upper Extremity: Shoulder flexion 3-/5.? Elbow flexors 4+/5. Triceps 4-/5. Medical Dermatologist weak but equal. Left Upper Extremity: Shoulder flexion 4-/5.? Elbow flexors 4+/5. Triceps 4-/5. Medical Dermatologist weak but equal. Right Lower Extremity: Hip flexion 3/5 or greater. Unable to tolerate overpressure. Knee extension 4/5. Knee flexion 4/5. Ankle DF 3/5 or greater. Left Lower Extremity: Hip flexion 3/5 or greater. Unable to tolerate overpressure. Knee extension 4/5. Knee flexion 4/5. Ankle DF 3/5 or greater. Sensation:?Intact as to pain and pressure on bilateral lower extremities. Hypersensitive to pressure due to LE edema per patient. ? BED MOBILITY/TRANSFERS? Sit-stand: SBA ? Stand-sit: SBA? GAIT? Assistive Device:FWW ? Weight bearing:full Assist:SBA ? Distance: 25'x2 ? Balance:? Static Sitting: Normal Dynamic Sitting: Good Static Standing: Good Dynamic Standing: Good Assessment: Patient presents with clinical signs and symptoms consistent with current/admitting diagnoses that have resulted to mobility limitations, gait instability, generalized weakness, and impairment of motor control as demonstrated by the following impairment level findings: 1. Decreased strength to all major muscle groups 2. Impaired sitting/standing balance 3. Impaired activity tolerance 4. Limitation of joint range of motion in right shoulder Impairments are contributing to the following functional limitations: 1. Dependent bed mobility skills 2. Increased dependence with transfers 3. Inability to safely ambulate without assistive device and physical assistance 4. Increase completion time for mobility ADL performance 5. Increased fall risk 6. Inability to negotiate steps alone safely Goals: Goals x1 week 1. Supine-Sit: SBA MET 2. Sit-Supine: SBA MEt 3. Sit-Stand: independent NOT MET 4. Stand-Sit: independent NOT MET 5. Bed-Chair: independent NOT MET 6. Chair-Bed: independent NOT MET 7. Gait: SBA on level surface with use of least restrictive device for 30 feet NOT MET 8. Good static and dynamic standing balance/tolerance NOT MET Discharge Plan DISCHARGE RECOMMENDATIONS: Home with services. Will likely require ambulance transfer home to manage steps into home. TREATMENT CODE/TIME: [place] Thank you for the opportunity to participate in the care of this patient. Ernestine Nieto PT, DPT, CLT [facility] [place], [place]
[2022-08-08 06:58] LABS: Lab Add On Test DONE
== END 2022-07-26 11:00 | disposition home health service (06) | DRG 291 ==
LOC: ER 15:08 → MS 17:06
PROVIDERS: Nurse Practitioner Acute Care; Admitting Provider Internal Medicine; Emergency Provider Nurse Practitioner Family; PCP Nurse Practitioner Adult Health; Visit Provider Internal Medicine
DX: I13.0 Hypertensive heart and chronic kidney disease with heart failure and stage 1 through stage 4 chronic kidney disease, or unspecified chronic kidney disease (principal); I50.33 Acute on chronic diastolic (congestive) heart failure; J96.91 Respiratory failure, unspecified with hypoxia; N18.4 Chronic kidney disease, stage 4 (severe); Z68.41 Body mass index [BMI] 40.0-44.9, adult; J96.12 Chronic respiratory failure with hypercapnia; E66.2 Morbid (severe) obesity with alveolar hypoventilation; E11.22 Type 2 diabetes mellitus with diabetic chronic kidney disease; I27.20 Pulmonary hypertension, unspecified; D64.9 Anemia, unspecified; Z79.4 Long term (current) use of insulin; Z99.81 Dependence on supplemental oxygen; E78.5 Hyperlipidemia, unspecified; Z79.01 Long term (current) use of anticoagulants; I48.91 Unspecified atrial fibrillation; E53.8 Deficiency of other specified B group vitamins; Z96.653 Presence of artificial knee joint, bilateral; M48.061 Spinal stenosis, lumbar region without neurogenic claudication; Z87.11 Personal history of peptic ulcer disease; M10.9 Gout, unspecified
CPT/HCPCS: 36415; 80048; 80053; 93005; 96374; 97110; 97162; 97530; 99285; 71045; 83735; 83880; 84484; 85025; 93010; 99223; 99232; 99233; 99239; J3475; J3490

== ENCOUNTER 2022-08-04 15:41 | Outpatient (REF) | payer MEDICARE, SELFPAY ==
[2022-08-04 14:34] LABS: Hemoglobin A1C 6.9 % (<5.7)
[2022-08-04 14:45] LABS: BUN 77 mg/dL (7-18); Calcium 9.7 mg/dL (8.5-10.1); Chloride 86 mmol/L (98-107); Estimated GFR 15.72 (mL/min/1.73m2); Glucose 231 mg/dL (74-106); Potassium 3.4 mmol/L (3.5-5.1); Sodium 136 mmol/L (136-145); Uric Acid 11.4 mg/dL (2.6-6.0)
[2022-08-04 14:46] LABS: CO2 > 45.0 mmol/L (21.0-32.0); NT-proBNP 2395 pg/mL (<300)
== END 2022-08-04 15:42 | disposition home or self-care (01) ==
LOC: LBN 15:41
PROVIDERS: PCP Nurse Practitioner Adult Health; Visit Provider Nurse Practitioner Adult Health
DX: E11.22 Type 2 diabetes mellitus with diabetic chronic kidney disease (principal); I50.9 Heart failure, unspecified; M10.271 Drug-induced gout, right ankle and foot; N18.4 Chronic kidney disease, stage 4 (severe)
CPT/HCPCS: 80048; 83036; 83880; 84550

== ENCOUNTER 2022-08-11 18:08 | Outpatient (REF) | payer MEDICARE, SELFPAY ==
[2022-08-11 18:52] LABS: Anion Gap 5.5 mmol/L (3-11); BUN 79 mg/dL (7-18); CO2 41.5 mmol/L (21.0-32.0); CREATININE 2.9 mg/dL (0.55-1.02); Calcium 9.2 mg/dL (8.5-10.1); Chloride 87 mmol/L (98-107); Estimated GFR 16.37 (mL/min/1.73m2); Glucose 199 mg/dL (74-106); NT-proBNP 3081 pg/mL (<300); Potassium 3.2 mmol/L (3.5-5.1); Sodium 134 mmol/L (136-145); Uric Acid 10.9 mg/dL (2.6-6.0)
== END 2022-08-11 18:09 | disposition home or self-care (01) ==
LOC: LBN 18:08
PROVIDERS: PCP Nurse Practitioner Adult Health; Visit Provider Nurse Practitioner Adult Health
DX: I50.9 Heart failure, unspecified (principal); N18.4 Chronic kidney disease, stage 4 (severe); E11.9 Type 2 diabetes mellitus without complications; M10.9 Gout, unspecified; M25.561 Pain in right knee
CPT/HCPCS: 80048; 83880; 84550

== ENCOUNTER 2022-08-27 15:39 | Outpatient (REF) | payer MEDICARE, SELFPAY ==
[2022-08-27 19:44] LABS: BUN 44 mg/dL (7-18); CREATININE 2.3 mg/dL (0.55-1.02); Calcium 9.1 mg/dL (8.5-10.1); Chloride 99 mmol/L (98-107); Estimated GFR 21.62 (mL/min/1.73m2); Glucose 167 mg/dL (74-106); Potassium 3.9 mmol/L (3.5-5.1); Sodium 144 mmol/L (136-145)
== END 2022-08-27 15:40 | disposition home or self-care (01) ==
LOC: LBN 15:39
PROVIDERS: PCP Nurse Practitioner Adult Health; Visit Provider Nurse Practitioner Adult Health
DX: N18.4 Chronic kidney disease, stage 4 (severe) (principal); N17.9 Acute kidney failure, unspecified
CPT/HCPCS: 80048

== ENCOUNTER 2022-11-14 09:29 | Emergency (ER) | payer MEDICARE, SELFPAY ==
[2022-11-14 09:34] VITALS: BP 133/73; PULSE 71; RESP 20; TEMP 36.6; O2SAT 94
--- NOTE | 2022-11-14 09:45 | DI.CT_ITS ---
Exam(s) CT CHEST/ABD/PEL WO EXAM: CT CHEST/ABD/PEL WO CLINICAL HISTORY: trauma, fall on eliquis TECHNIQUE: Imaging Protocol: Axial computed tomography images with coronal and sagittal reformatted images were created and reviewed COMPARISON: CT ABD PELVIS WO CONTRAST from 10/26/2014 FINDINGS: The examination is limited due to patient motion artifact. CHEST: Tracheobronchial tree: Patent where visualized. Pulmonary parenchyma: Incidental note is made of an azygos lobe which is a normal variant. There are ground-glass opacities seen within the lungs bilaterally. Calcified granuloma is seen in the left u pper lobe. No focal consolidating infiltrates are seen. No architectural distortion. Mediastinum and Kavitha: No dominant adenopathy or fluid collection. The esophagus is unremarkable. Thyroid gland: The right lobe of the thyroid gland is enlarged. There is a large calcification prese nt measuring 2.2 cm. Thyroid nodules are seen within the right lobe. Nonemergent thyroid ultrasound may be obtained for further evaluation. Pleura: No effusion or pneumothorax. Heart: Mild cardiomegaly. Moderate coronary artery calcification is present. No pericardial effusio n. Aorta: Thoracic aorta non-dilated. Atherosclerosis. Lymph nodes: Within normal limits. Bones:Within normal limits for the patient's age. Soft tissues: Unremarkable. ABDOMEN: Liver: Normal density. No measurable mass. Gallbladder and Biliary Tract: No radiodense calculus or dilation. Pancreas: Normal density, no abnormal calcifications or inflammatory process. There is blurring of th e soft tissues around the pancreas secondary to patient motion artifact. Spleen: Normal. Adrenals: No masses seen. Kidneys: Normal size, contour and axis. Left nephrolithiasis. No hydronephrosis. No masses seen. Li mited evaluation due to patient motion artifact. Abdominal Aorta: Abdominal portion non-dilated. Atherosclerosis. Bowel: Colonic diverticulosis without evidence of diverticulitis. No evidence of appendicitis. Peritoneal Cavity: No ascites, collection or mesenteric inflammatory response. No free air. Lymph Nodes: Within normal limits. Bones: Within normal limits for the patient's age. Soft Tissues: There is a small fat containing umbilical hernia. PELVIS: Bladder: Symmetric distention, no gross wall thickening. Reproductive Organs: Status post hysterectomy. Lymph Nodes: Within normal limits. Bones: Within normal limits for the patient's age. IMPRESSION: 1. Nonspecific ground-glass opacities in the lungs. No focal consolidations. 2. No acute pulmonary process. 3. Blurring of the soft tissues around the pancreas which may be due to patient motion artifact. Pos sible pancreatitis cannot be excluded. Please correlate with laboratory findings and clinical histor y. RADIATION DOSE DELIVERED: 1,715.86mGy.cm Total DLP 1,715.86mGy.cm Total DLP DATA REPOSITORY: All CT scans at this facility are submitted to the National Radiology Data Registry (NRDR) Dose Index Registry (DIR) with the [employer] ([employer]). RADIATION OPTIMIZATION: All CT scans at this facility use at least one of these dose optimization te chniques: automated exposure control; mA and/or kV adjustment per patient size (includes targeted exa ms where dose is matched to clinical indication); or iterative reconstruction.
--- NOTE | 2022-11-14 09:45 | DI.CT_ITS ---
Exam(s) CT HEAD CERVICAL SPINE WO EXAM: CT HEAD CERVICAL SPINE WO CLINICAL HISTORY: trauma, fall on eliquis, occipital hematoma. TECHNIQUE: Imaging Protocol: Axial computed tomography images with coronal and sagittal reformatted images were created and reviewed COMPARISON: CT CT HEAD CERVICAL SPINE WO from 05/23/2022 FINDINGS: There is patient motion artifact. CT Head: Ventricles and Extra axial spaces: Normal in size and morphology for the patient's age. Hemorrhage: None. Cerebral parenchyma: No evidence of an acute territorial infarct. There findings of small vessel isc hemic disease. Midline shift: None. Brainstem/Cerebellum: Normal. Calvarium: Normal. Healed bilateral mandibular fractures. Visualized Paranasal sinuses/Mastoids: Clear. Soft Tissues: Unremarkable. CT Cervical Spine: Bones: No acute fracture or subluxation. Moderately severe degenerative changes are present throughou t the cervical spine. Note is made of anterolisthesis of C3 on C4, C4 and C5 and C7 on T1 which is l ikely degenerative in nature. Soft Tissues: Unremarkable. There is a 2.2 cm calcification in an enlarged right lobe of the thyroid gland. Nonemergent thyroid ultrasound is recommended. Lung Apices: Clear. IMPRESSION: 1. There is patient motion artifact present. This limits the examination. 2. No acute intracranial process. 3. No acute fracture or subluxation in the cervical spine. RADIATION DOSE DELIVERED: 1,388.42mGy.cm Total DLP DATA REPOSITORY: All CT scans at this facility are submitted to the National Radiology Data Registry (NRDR) Dose Index Registry (DIR) with the [employer] ([employer]). RADIATION OPTIMIZATION: All CT scans at this facility use at least one of these dose optimization te chniques: automated exposure control; mA and/or kV adjustment per patient size (includes targeted exa ms where dose is matched to clinical indication); or iterative reconstruction.
--- NOTE | 2022-11-14 09:50 | W.ED.GENAD ---
Discharge Plan Disposition Patient Disposition: Home Discharge Details Clinical Impression: Fall, Elevated lipase, Diverticulosis, Kidney stone on left side, Ground glass opacity present on imaging of lung Primary Care Provider: Laverne Sung ED Provider: Kaushal Fitzgerald Home Meds and New Rx's Prescriptions: No Action insulin aspart U-100 [Novolog FlexPen U-100 Insulin] 100 unit/mL (3 mL) insulin pen See Rx Instructions subcut AC MDD 30 units Qty: 90 3RF Rx Instructions: 2-10 units subcut before meals; For diabetes as directed with meals sliding scale: 100:0units 101-150: 2 units 151-200: 4 units 201-250: 6 units 251-300: 8 units over 300: 10 units (DME) 3XL incontinence briefs See Rx Instructions .Route .MEDSUPPLY Qty: 30 2RF Rx Instructions: Uses one nightly at bedtime for urge incontinence acetaminophen [Tylenol Extra Strength] 500 mg tablet 500 mg PO Q6H PRN (DME) BD Eclipse Luer-Timi 3 mL 23 x 1 syringe See Rx Instructions .ROUTE .MEDSUPPLY Qty: 15 0RF Rx Instructions: for use with monthly self administered B12 injections docusate sodium [Colace] 100 mg capsule 100 mg PO BID allopurinol 100 mg tablet 100 mg PO DAILY Qty: 90 3RF Rx Instructions: Gout prevention (DME) Oxygen Tank See Rx Instructions .ROUTE .MEDSUPPLY Qty: 1 0RF Rx Instructions: 2-5L via NC continuous cyanocobalamin (vitamin B-12) 1,000 mcg/mL kit 1,000 mcg subcut QMONTH Qty: 1 11RF Rx Instructions: May self-administer at home for low B12 fluticasone propionate 50 mcg/actuation spray,suspension 1 spray NS DAILY PRN (Reason: allergy symptoms) Qty: 15.8 0RF atorvastatin 80 mg tablet 80 mg PO QHS Qty: 90 3RF Rx Instructions: Cholesterol (DME) Wheelchair See Rx Instructions .Route .MEDSUPPLY Qty: 1 0RF Rx Instructions: As directed nystatin 100,000 unit/gram powder 1 applic topical TID Qty: 60 1RF Rx Instructions: Apply liberal amount to skin under breast, groin folds, abd folds for 2-3 weeks or until rash resolved. (DME) pen needle, diabetic [BD Ultra-Fine Mini Pen Needle] 31 gauge x 3/16 needle See Rx Instructions .ROUTE .MEDSUPPLY Qty: 100 6RF Rx Instructions: for insulin administration qid dx E11.22 #360 Refill 3 magnesium oxide 400 mg (241.3 mg magnesium) tablet 400 mg PO DAILY Qty: 90 3RF Rx Instructions: Low magnesium pantoprazole [Protonix] 40 mg tablet,delayed release (DR/EC) 40 mg PO DAILY Qty: 90 3RF Rx Instructions: h/o GI bleed, stomach protection amlodipine 5 mg tablet 5 mg PO DAILY Qty: 90 3RF Rx Instructions: Blood pressure Eliquis 5 mg tablet 5 mg PO BID Qty: 180 3RF Hold Instructions: Resume on 03/18/22. (DME) FreeStyle Bradley 2 Sensor Kit See Rx Instructions .ROUTE .MEDSUPPLY Qty: 2 11RF Rx Instructions: As directed; on insulin AC & HS for goal A1C 8% Jardiance 10 mg tablet 10 mg PO QAM Qty: 90 3RF metolazone 2.5 mg tablet 2.5 mg PO DAILY PRN (Reason: fluid overload/CHF symptoms) Qty: 40 0RF Hold Instructions: Changed by Provider Rx Instructions: To use as directed torsemide 20 mg tablet 80 mg PO DAILY MDD 120mg/24h Qty: 240 0RF insulin glargine 100 unit/mL (3 mL) insulin pen 13 unit subcut HS Patient Comments: 13 units per Laverne on 10/28/22 Calcium 600 with Vitamin D3 600 mg(1,500mg) -400 unit Tablet,Chewable 1 tab PO BID Discharge Instructions Instructions: Fall Prevention (ED) Additional Instructions: Your blood test today revealed a slightly elevated lipase with signs of possible minimal pancreatitis on CT scan. Please maintain a clear liquid diet today to allow for bowel rest. Please follow-up with your primary care physician first thing on first thing next week. You should have repeat labs performed on Wednesday. Your lungs have nonspecific groundglass opacities with minimal air trapping which has been associated with hypertensive sensitivity pneumonitis. You have an enlarged and heterogeneous right thyroid lobe with calcifications. There may be additional incidental findings noted on your CT imaging. Please be sure to discuss these with your primary care physician. Please contact your primary care physician to arrange follow-up. Return to the ER immediately for any worsening or new concerning symptoms. Referrals: Laverne Sung, FRUIT GRADER OPERATOR [Primary Care Provider] - Medical Decision Making 955 --77-year-old female with multimedical problems, on Eliquis, presents after fall from standing the ground with injury to her head and right mid back. Patient has occipital hematoma. She has tenderness over her left thoracic paraspinal ribs. Patient is hemodynamically stable. Saturating well in no respiratory distress. Concern for acute life-threatening intracranial hemorrhage. Plan to obtain CT of the head. Consider cervical spine fracture will obtain CT of the cervical spine. Concern for rib fracture versus less likely retroperitoneal hemorrhage. Plan to obtain CT of the chest abdomen pelvis. -- Labs reviewed and chronic kidney disease noted. Creatinine 2.4 and GFR 20. 1345 --CT of the head was interpreted by radiology as negative. No acute intracranial hemorrhage. CT of the cervical spine interpreted by radiology: No acute fracture of the cervical spine. No subluxation or dislocation of cervical. Intervertebral disc space narrowing C5-T1 may represent degenerative disc disease. 2.2 cm calcification in the right lobe of the thyroid may represent calcified nodule, recommend thyroid ultrasound. CT of the chest was interpreted by radiology: Nonspecific groundglass opacities with minimal air trapping has been associated with hypersensitivity pneumonitis. No lobar consolidations or effusions. Enlarged and heterogeneous calcified right thyroid lobe. CT of the abdomen pelvis interpreted by radiology: No free air and no significant fluid collection. Possible minimal pancreatitis although motion artifact blurs the tail region. Uncomplicated colonic diverticulosis. Additional labs reviewed and lipase is mildly elevated at 84. Patient reassessed and is remained stable. She continues to have some discomfort right lateral ribs. Suspect rib contusion. I will apply lidocaine patch and provide incentive spirometer. Plan for discharge with outpatient follow-up. 1525 -- Repeat hb stable. Patient has remained hemodynamically stable. Feeling much better after medication. Plan for discharge with outpatient follow-up. Patient will need follow-up next week given elevated lipase and findings on CT. She should have repeat diagnostic labs performed next week. Usual customary discharge instructions were reviewed with the patient. Lab Data Lab results reviewed: Yes I reviewed the patient's lab results. Labs: Laboratory Tests Range/Units 11/14/22 11/14/22 11/14/22 10:09 10:09 10:09 WBC (4.4-10.8) 10^3/uL 8.37 RBC (3.93-5.22) 10^6/uL 3.87 L Hgb (11.2-15.7) g/dL 12.0 Hct (36.0-46.0) % 39.3 MCV (80-95) fL 102 H MCH (27.0-33.0) pg 31.0 MCHC (32.0-36.0) % 30.5 L RDW (11.7-14.6) % 17.3 H Plt Count (130-400) 10^3/uL 255 MPV (8.0-11.0) fL 10.1 Immature Gran % 0.6 Neutrophils % 66.8 Lymphocytes % 21.7 Monocytes % 6.0 Eosinophils % 4.3 Basophils % 0.6 Nucleated RBC % (0.0-0.3) % 0.0 Absolute Neutrophils (1.2-6.7) 10^3/uL 5.59 Absolute Lymphocytes (1.2-3.4) 10^3/uL 1.82 Absolute Monocytes (0.1-0.8) 10^3/uL 0.50 Absolute Eosinophils (0.0-0.7) 10^3/uL 0.36 Absolute Basophils (0.0-0.2) 10^3/uL 0.05 Sodium (136-145) mmol/L 139 Potassium (3.5-5.1) mmol/L 3.6 Chloride (98-107) mmol/L 97 L Carbon Dioxide (21.0-32.0) mmol/L 36.7 H Anion Gap (3-11) mmol/L 5.3 BUN (7-18) mg/dL 50 H Creatinine (0.55-1.02) mg/dL 2.4 H Est GFR (CKD-EPI 2020) (mL/min/1.73m2) 20.42 Glucose (74-106) mg/dL 162 H Calcium (8.5-10.1) mg/dL 9.6 Total Bilirubin (0.2-1.0) mg/dL 0.5 AST (15-37) U/L 18 ALT (14-59) U/L 6 L Alkaline Phosphatase (46-116) U/L 97 Total Protein (6.4-8.2) g/dL 7.6 Albumin (3.4-5.0) g/dL 3.2 L Lipase (16-77) U/L Patient ABO/Rh A Positive Antibody Screen NEGATIVE Range/Units 11/14/22 11/14/22 12:44 13:55 WBC (4.4-10.8) 10^3/uL 9.12 RBC (3.93-5.22) 10^6/uL 3.73 L Hgb (11.2-15.7) g/dL 11.7 Hct (36.0-46.0) % 37.6 MCV (80-95) fL 101 H MCH (27.0-33.0) pg 31.4 MCHC (32.0-36.0) % 31.1 L RDW (11.7-14.6) % 17.2 H Plt Count (130-400) 10^3/uL 243 MPV (8.0-11.0) fL 9.9 Immature Gran % Neutrophils % Lymphocytes % Monocytes % Eosinophils % Basophils % Nucleated RBC % (0.0-0.3) % Absolute Neutrophils (1.2-6.7) 10^3/uL Absolute Lymphocytes (1.2-3.4) 10^3/uL Absolute Monocytes (0.1-0.8) 10^3/uL Absolute Eosinophils (0.0-0.7) 10^3/uL Absolute Basophils (0.0-0.2) 10^3/uL Sodium (136-145) mmol/L Potassium (3.5-5.1) mmol/L Chloride (98-107) mmol/L Carbon Dioxide (21.0-32.0) mmol/L Anion Gap (3-11) mmol/L BUN (7-18) mg/dL Creatinine (0.55-1.02) mg/dL Est GFR (CKD-EPI 2020) (mL/min/1.73m2) Glucose (74-106) mg/dL Calcium (8.5-10.1) mg/dL Total Bilirubin (0.2-1.0) mg/dL AST (15-37) U/L ALT (14-59) U/L Alkaline Phosphatase (46-116) U/L Total Protein (6.4-8.2) g/dL Albumin (3.4-5.0) g/dL Lipase (16-77) U/L 84 H Patient ABO/Rh Antibody Screen HPI General Mode of arrival: EMS. Date/Time Provider Initiated Documentation: 11/14/22 09:38. Limitations to Documentation: no limitations. Information obtained by: patient. HPI Narrative: 77-year-old female with multimedical problems including chronic kidney disease, on Eliquis, here after fall from standing to the ground. Patient notes she was going to sit in the chair and stumbled and fell to the ground. She did injure her right mid back during the fall and hit her head. Patient chief complaint is right mid back pain that is severe and worse with certain positions. She has no associated shortness of breath. She denies abdominal pain. She does have some posterior head pain. Patient did not take her Eliquis yet this morning Related Data Home Medications Medication Instructions Recorded Confirmed calcium carbonate 600 mg-vitamin 1 tab PO BID 12/28/18 09/08/22 D3 10 mcg (400 unit) chewable tablet (Calcium 600 with Vitamin D3) acetaminophen 500 mg tablet 500 mg PO Q6H PRN 12/04/19 09/08/22 (Tylenol Extra Strength) insulin aspart U-100 100 unit/mL See Rx Instructions subcut AC DMT2 06/16/21 09/08/22 (3 mL) subcutaneous pen (Novolog #90 mL FlexPen U-100 Insulin aspart) syringe with needle 3 mL 23 x 1 #15 ea 11/24/21 09/08/22 (BD Eclipse Luer-Timi) Oxygen #1 ea 12/19/21 09/08/22 cyanocobalamin (vitamin B-12) 1,000 mcg subcut QMONTH #1 ea 01/20/22 09/08/22 1,000 mcg/mL injection kit docusate sodium 100 mg capsule 100 mg PO BID 02/10/22 09/08/22 (Colace) fluticasone propionate 50 1 spray NS DAILY PRN allergy 02/11/22 09/08/22 mcg/actuation nasal symptoms #15.8 mL spray,suspension atorvastatin 80 mg tablet 80 mg PO QHS #90 tabs 05/11/22 09/08/22 3XL incontinence briefs #30 ea 05/30/22 09/08/22 Wheelchair #1 ea 06/08/22 09/08/22 nystatin 100,000 unit/gram topical 1 applic topical TID #60 grams 06/08/22 09/08/22 powder pen needle, diabetic 31 gauge x #100 ea 07/07/22 09/08/22 3/16 (BD Ultra-Fine Mini Pen Needle) allopurinol 100 mg tablet 100 mg PO DAILY #90 tabs 08/03/22 09/08/22 amlodipine 5 mg tablet 5 mg PO DAILY #90 tabs 08/03/22 09/08/22 apixaban 5 mg tablet (Eliquis) 5 mg PO BID #180 tabs 08/03/22 09/08/22 magnesium oxide 400 mg (241.3 mg 400 mg PO DAILY #90 tabs 08/03/22 09/08/22 magnesium) tablet pantoprazole 40 mg tablet,delayed 40 mg PO DAILY #90 tabs 08/03/22 09/08/22 release (Protonix) empagliflozin 10 mg tablet 10 mg PO QAM #90 tabs 08/19/22 09/08/22 (Jardiance) flash glucose sensor (FreeStyle #2 ea 08/19/22 09/08/22 Bradley 2 Sensor kit) metolazone 2.5 mg tablet 2.5 mg PO DAILY PRN fluid 08/31/22 09/08/22 overload/CHF symptoms #40 tabs torsemide 20 mg tablet 80 mg PO DAILY #240 tabs 10/19/22 insulin glargine 100 unit/mL (3 13 unit subcut HS 10/28/22 mL) subcutaneous pen Previous Rx's Medication Instructions Recorded insulin aspart U-100 100 unit/mL See Rx Instructions subcut AC DMT2 06/16/21 (3 mL) subcutaneous pen (Novolog #90 mL FlexPen U-100 Insulin aspart) syringe with needle 3 mL 23 x 1 #15 ea 11/24/21 (BD Eclipse Luer-Timi) Oxygen #1 ea 12/19/21 cyanocobalamin (vitamin B-12) 1,000 mcg subcut QMONTH #1 ea 01/20/22 1,000 mcg/mL injection kit fluticasone propionate 50 1 spray NS DAILY PRN allergy 02/11/22 mcg/actuation nasal symptoms #15.8 mL spray,suspension atorvastatin 80 mg tablet 80 mg PO QHS #90 tabs 05/11/22 3XL incontinence briefs #30 ea 05/30/22 Wheelchair #1 ea 06/08/22 nystatin 100,000 unit/gram topical 1 applic topical TID #60 grams 06/08/22 powder pen needle, diabetic 31 gauge x #100 ea 07/07/2205/28 (BD Ultra-Fine Mini Pen Needle) allopurinol 100 mg tablet 100 mg PO DAILY #90 tabs 08/03/22 amlodipine 5 mg tablet 5 mg PO DAILY #90 tabs 08/03/22 apixaban 5 mg tablet (Eliquis) 5 mg PO BID #180 tabs 08/03/22 magnesium oxide 400 mg (241.3 mg 400 mg PO DAILY #90 tabs 08/03/22 magnesium) tablet pantoprazole 40 mg tablet,delayed 40 mg PO DAILY #90 tabs 08/03/22 release (Protonix) empagliflozin 10 mg tablet 10 mg PO QAM #90 tabs 08/19/22 (Jardiance) flash glucose sensor (FreeStyle #2 ea 08/19/22 Bradley 2 Sensor kit) metolazone 2.5 mg tablet 2.5 mg PO DAILY PRN fluid 08/31/22 overload/CHF symptoms #40 tabs torsemide 20 mg tablet 80 mg PO DAILY #240 tabs 10/19/22 Allergies Allergy/AdvReac Type Severity Reaction Status Date / Time codeine Allergy Severe Swelling/Ed Verified 09/08/22 14:02 warner furosemide [From Lasix] Allergy Severe Swelling/Ed Verified 09/08/22 14:02 warner morphine Allergy Severe Swelling/Ed Verified 09/08/22 14:02 warner peanut Allergy Severe Nausea Verified 09/08/22 14:02 tree nut Allergy Severe Verified 09/08/22 14:02 acetaminophen [From Percocet] Allergy Intermediate ITCHY Verified 09/08/22 14:02 adhesive tape Allergy Intermediate Skin Rash Verified 09/08/22 14:02 oxycodone HCl [From Percocet] Allergy Intermediate ITCHY Verified 09/08/22 14:02 apricot Allergy Unknown Uncoded 09/08/22 14:02 General Stated Complaint: Fall/Non TraumaCriteria GERALDINE: 3 Review of Systems All systems reviewed & are unremarkable except as noted in HPI and below PFSH All Active Problems (Updated 11/14/22 @ 15:32 by Kaushal Fitzgerald MD) Fall (Acute) Elevated lipase (Acute) Diverticulosis (Acute) Kidney stone on left side (Acute) Ground glass opacity present on imaging of lung (Acute) Knee pain, left (Acute) Pressure sore on buttocks (Acute) JOY (acute kidney injury) (Acute) CKD (chronic kidney disease) (Chronic) At high risk for skin breakdown (Acute) Impaired instrumental activities of daily living (Acute) Deficit in activities of daily living (ADL) (Acute) Hyperuricemia (Acute) Bradycardia (Acute) Gout (Chronic) CKD stage 4 due to type 2 diabetes mellitus (Acute) Respiratory failure with hypoxia and hypercapnia (Acute) Obstructive sleep apnea treated with BiPAP (Acute) CHF (congestive heart failure) (Acute 02/23/14) Preserved EF (10/2020 & 08/2021 ECHO) Obstructive sleep apnea (Chronic 02/23/14) Sleep Med Referral, 04/17/2019-->Very severe YARELY; CPAP ([facility]) with continuous O2, new Panda C-Pap 01/2021 Type II diabetes mellitus (Chronic) Hypertension (Chronic) Hyperlipidemia (Chronic) Atrial fibrillation (Chronic) Apixaban Anemia (Chronic) Pulmonary hypertension (Chronic) Dependence on supplemental oxygen (Chronic) YARELY + Pulm HTN Palliative care status (Chronic) Full code status (Chronic) Chronic low back pain (Chronic 07/24/15) CT-lumbar spine 2019-- Severe multilevel degenerative changes in the lumbar spine resulting in neural foraminal and central spinal canal stenosis. Chronic anticoagulation (Chronic) AF--Apixaban Risk for falls (Chronic) Sedentary lifestyle (Chronic) B12 deficiency (Chronic) Start B12 injections; elevated MCV Chronic respiratory failure with hypercapnia (Chronic) Obesity hypoventilation syndrome (Chronic) Obesity + Severe YARELY + Chronic Hypercapnia Dependent on walker for ambulation (Chronic) Hypomagnesemia (Acute ~07/2021) Mild mitral valve regurgitation (Acute ~08/2021) ECHO Trace tricuspid valve regurgitation (Acute ~08/2021) ECHO Medical History Adult body mass index 50.0-59.9 Carpal tunnel syndrome, bilateral (12/17/16) Dietary counseling reviewed sodium levels in her food, how to count mg, goal of 1500 mg daily due to CHF 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 Folate deficiency Low 12/2018; resolved 05/2019 labs; discontinued 02/05/2020 Gout attack (~10/2020) R podagra, first attack 10/2020-->treated with colchine, effective h/o elbow fx H/O fracture of nose H/O rotator cuff tear Heme + stool [facility] Upper GI Endoscopy Peptic Duodenitis (pathology report); repeat hemoccults NEG 11/2019 HTN (hypertension) Insulin dependent diabetes mellitus Iron deficiency EGD 05/23/19 at [facility]; discont supp iron & vit c 02/05/2020; Hgb stable and iron constipating; she will obtain dietarily Lipoma Lipoma of arm YARELY (obstructive sleep apnea) Peptic ulcer of duodenum [facility] Path reports upper endoscopy; RX Carafate Renal calculi Non obstructive per CT Restrictive lung disease (~03/2014) PFTs validated 04/04/2014-->see scanned docs Right carpal tunnel syndrome Sciatica of right side without back pain RX Medrol Spinal stenosis, lumbar Trigger finger, right middle finger Injection: 05/04/2022 Surgical History Biopsy, Temporal Artery (01/18/15) DR[facility]C YOU[facility] [place] [facility] [place] History of carpal tunnel repair Left- 1998 Right- 2017 History of shoulder surgery Right shoulder repair - 2004 History of total abdominal hysterectomy and bilateral salpingo-oophorectomy (~02/1999) History of total bilateral knee replacement History of total knee arthroplasty bilateral Family History Mother Heart disease Father Heart disease Lung cancer Brother Heart disease AAA (abdominal aortic aneurysm, ruptured) Brother Obesity Son No problems noted. Daughter Stillborn, abnormal Daughter No problems noted. 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 Pets and animals: Yes Pets and animals: cat(s) Sexually active: No Do you think of yourself as: straight/heterosexual Current gender identity: female What is your relationship status?: How often do you talk on the phone with friends or family?: once per week How often do you get together with friends or relatives?: once per week Panel score (0-1 are the most socially isolated patients): 0 What type of physical activity do you participate in: none and sedentary lifestyle Special jakob needs: No Agree to transfusion: Yes Seatbelt use: always In current or past relationships, have you been: made to feel afraid Do you feel safe at home: Yes Do you feel safe in your relationship?: Yes Exam Const General: cooperative and no acute distress HENMT Head: hematoma (occipital) and no lacerations General nose exam: external nose normal Face and sinus: face symmetric Mouth: moist mucous membranes Eyes Conjunctivae: normal conjunctivae Sclera: normal sclerae Neck Neck: trachea midline and supple Resp Auscultation: clear to auscultation bilaterally, no rales, no rhonchi and no wheezes Cardio Rate: regular rate and not tachycardic Rhythm: regular rhythm GI Palpation: soft, not firm, no guarding, no masses, not rigid and nontender Back/Spine/Pelvis Cervical Spine: No cervical spinal tenderness and No step off deformity Thoracic/Lumbar Spine: thoracic and lumbar spine normal to inspection, paraspinal tenderness (rt thoracic and over posterior ribs), No thoracic spinal tenderness and No lumbar spinal tenderness Skin General skin exam: no rashes or lesions noted Neuro General: patient alert, patient awake, patient oriented x3 and tone normal Psych Appearance: grossly normal Mental Status: mental status grossly normal Course Vital Signs Vital signs: Vital Signs Temperature 36.6 C 11/14/22 09:34 Pulse 71 11/14/22 09:34 Respiratory Rate 20 11/14/22 09:34 Blood Pressure 133/73 11/14/22 09:34 Pulse Oximetry 94 11/14/22 09:34 Temperature 36.6 C 11/14/22 09:34 Temperature Source Oral 11/14/22 09:34 Pulse 71 11/14/22 09:34 Respiratory Rate 20 11/14/22 09:34 Blood Pressure 133/73 11/14/22 09:34 Blood Pressure Position Supine 11/14/22 09:34 Pulse Oximetry 94 11/14/22 09:34 Oxygen Delivery Method Nasal Cannula 11/14/22 09:34 Oxygen Flow Rate 4 11/14/22 09:34 Pain Level 8 11/14/22 09:34
[2022-11-14 10:20] LABS: Abs Immature Grans 0.05 10^3/uL (0.0-0.06); Absolute Basophil Count 0.05 10^3/uL (0.0-0.2); Absolute Eosinophil Count 0.36 10^3/uL (0.0-0.7); Absolute Lymphocyte Count 1.82 10^3/uL (1.2-3.4); Absolute Neutrophil Count 5.59 10^3/uL (1.2-6.7); Basophils % 0.6; Eosinophils % 4.3; HCT 39.3 % (36.0-46.0); Immature Grans % 0.6; Lymphocytes % 21.7; MCHC 30.5 % (32.0-36.0); MCV 102 fL (80-95); MPV 10.1 fL (8.0-11.0); Neutrophils % 66.8; Platelet Count 255 10^3/uL (130-400); RBC 3.87 10^6/uL (3.93-5.22); RDW 17.3 % (11.7-14.6); RDW-SD 64.8 fL; WBC 8.37 10^3/uL (4.4-10.8)
[2022-11-14 10:35] LABS: ALT 6 U/L (14-59); AST 18 U/L (15-37); Albumin 3.2 g/dL (3.4-5.0); Alkaline Phosphatase 97 U/L (46-116); Anion Gap 5.3 mmol/L (3-11); BUN 50 mg/dL (7-18); Bilirubin, Total 0.5 mg/dL (0.2-1.0); CO2 36.7 mmol/L (21.0-32.0); CREATININE 2.4 mg/dL (0.55-1.02); Calcium 9.6 mg/dL (8.5-10.1); Chloride 97 mmol/L (98-107); Estimated GFR 20.42 (mL/min/1.73m2); Glucose 162 mg/dL (74-106); Potassium 3.6 mmol/L (3.5-5.1); Sodium 139 mmol/L (136-145); Total Protein 7.6 g/dL (6.4-8.2)
[2022-11-14 11:33] VITALS: BP 122/78; PULSE 78; RESP 22; O2SAT 92
--- NOTE | 2022-11-14 12:17 | DI.VRAD_ITS ---
PROCEDURE INFORMATION: Exam: CT Head Without Contrast Exam date and time: 11/14/2022 11:49 AM Age: 77 years old Clinical indication: Injury or trauma; Other: Trauma, fall on eliquis, occipital hematoma TECHNIQUE: Imaging protocol: Computed tomography of the head without contrast. COMPARISON: CT HEAD CERVICAL SPINE WO 05/23/2022 9:30 AM FINDINGS: Brain: No acute intracranial hemorrhage.. There is mild diffuse heterogeneity of the white matter attenuation, consistent with chronic white matter ischemic changes. Mild cerebral atrophy Cerebral ventricles: No ventriculomegaly. Paranasal sinuses: Visualized sinuses are unremarkable. No fluid levels. Mastoid air cells: Visualized mastoid air cells are well aerated. Bones/joints: Healed bilateral mandibular fractures Soft tissues: Unremarkable. IMPRESSION: No acute intracranial hemorrhage.. PROCEDURE INFORMATION: Exam: CT Cervical Spine Without Contrast Exam date and time: 11/14/2022 11:49 AM Age: 77 years old Clinical indication: Injury or trauma; Other: Trauma, fall on eliquis, occipital hematoma TECHNIQUE: Imaging protocol: Computed tomography of the cervical spine without contrast. COMPARISON: CT HEAD CERVICAL SPINE WO 05/23/2022 9:30 AM FINDINGS: Bones/joints: No acute fracture of the cervical spine. No subluxation or dislocation of the cervical spine. Anterolisthesis a of C3 with respect to C4 and C4 with respect to C5 and C7 with respect to T1. Intervertebral disc space narrowing C5 through T1 may represent degenerative disc disease.. Anterior osteophyte formation C3 through C7. Posterior osteophyte formation C4 through C7. Degenerative changes in the facets at multiple levels. Degenerative changes at C1/C2 Lungs: Lung apices are normal. Thyroid: 2.2 cm calcification in the right lobe of the thyroid may represent calcified nodule. Recommend thyroid ultrasound . Soft tissues: Unremarkable. IMPRESSION: 1. No acute fracture of the cervical spine. 2. No subluxation or dislocation of the cervical spine. 3. Intervertebral disc space narrowing C5 through T1 may represent degenerative disc disease.. 4. 2.2 cm calcification in the right lobe of the thyroid may represent calcified nodule. Recommend thyroid ultrasound . Dictated and Authenticated by: Karyn Peterson MD. Ordering:KIA Easley MD
--- NOTE | 2022-11-14 12:27 | DI.VRAD_ITS ---
PROCEDURE INFORMATION: Exam: CT Chest Without Contrast; Diagnostic Exam date and time: 11/14/2022 11:51 AM Age: 77 years old Clinical indication: Abdominal pain; Other: Unknown TECHNIQUE: Imaging protocol: Diagnostic computed tomography of the chest without contrast. COMPARISON: CR XR PORTABLE CHEST AP 07/23/2022 12:55 PM FINDINGS: Thyroid: Enlarged and heterogeneous right lobe with calcifications. The left lobe is unremarkable. Lungs: Mosaic attenuation of the upper lung zones. No consolidations. There is an azygous lobe. Pleural spaces: Unremarkable. No pneumothorax. No pleural effusion. Heart: Heart is normal in size configuration. There are coronary artery calcifications. No pericardial effusion. Lymph nodes: Unremarkable. No enlarged lymph nodes. Vasculature: Unremarkable. No aortic aneurysm. Bones/joints: The spine demonstrates moderate degenerative changes at multiple levels. Previous right shoulder rotator cuff repair. 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 Soft tissues: Unremarkable. IMPRESSION: 1. Nonspecific ground-glass opacities with minimal air trapping has been associated with hypersensitivity pneumonitis. No lobar consolidations or effusions. 2. Enlarged and heterogeneous/calcified right thyroid lobe. PROCEDURE INFORMATION: Exam: CT Abdomen And Pelvis Without Contrast Exam date and time: 11/14/2022 11:51 AM Age: 77 years old Clinical indication: Abdominal pain; Other: Unknown TECHNIQUE: Imaging protocol: Computed tomography of the abdomen and pelvis without contrast. COMPARISON: CT LUMBAR SPINE SI JOINTS WO 08/22/2019 12:28 PM FINDINGS: Limitations: Motion artifact. Liver: Unremarkable. No mass, cysts or dilated bile ducts. Gallbladder and bile ducts: Normal. No calcified stones. No ductal dilation. Pancreas: Atrophic. Motion artifact blurs the tail region the could have minimal amount of inflammation. Suggest laboratory confirmation. Spleen: Normal. No splenomegaly. Adrenal glands: Normal. No mass. Kidneys and ureters: The kidneys are blurred by motion. Perinephric stranding consistent with a sweat sign of renal failure. Nonobstructing 0.2 cm calculus in the upper pole of the left kidney. No hydronephrosis or hydroureter. Stomach and bowel: No signs of bowel obstruction. There are colonic diverticula without inflammatory changes Appendix: No evidence of appendicitis. Intraperitoneal space: Unremarkable. No free air. No significant fluid collection. Vasculature: The vasculature demonstrates diffuse mild atherosclerotic calcification. Lymph nodes: Unremarkable. No enlarged lymph nodes. Urinary bladder: Unremarkable as visualized. Reproductive: There has been a hysterectomy. Bones/joints: The spine demonstrates moderate degenerative changes at multiple levels. Soft tissues: Unremarkable. IMPRESSION: 1. Possible minimal pancreatitis. 2. Uncomplicated colonic diverticulosis. Dictated and Authenticated by: Valentin Echevarria MD. Ordering:KIA Easley MD
--- NOTE | 2022-11-14 13:25 | NUR.NOTE ---
Nursing Note:1325 C-Collar removed per Dr. Fitzgerald. Pt has no neck pain, full ROM.
[2022-11-14 13:31] LABS: Lipase 84 U/L (16-77)
[2022-11-14 14:01] LABS: HCT 37.6 % (36.0-46.0); HGB 11.7 g/dL (11.2-15.7); MCH 31.4 pg (27.0-33.0); MCHC 31.1 % (32.0-36.0); MCV 101 fL (80-95); MPV 9.9 fL (8.0-11.0); Platelet Count 243 10^3/uL (130-400); RBC 3.73 10^6/uL (3.93-5.22); RDW 17.2 % (11.7-14.6); RDW-SD 63.8 fL; WBC 9.12 10^3/uL (4.4-10.8)
[2022-11-14] MEDS: ACETAMINOPHEN 1,000 MG/100 ML BTL 400 MG IVPB (14:12)
[2022-11-14] MEDS: Lidocaine 5% Patch 1 PATCH TP (14:14)
--- NOTE | 2022-11-14 15:34 | NUR.NOTE ---
Nursing Note: pcp referral
[2022-11-14 16:50] VITALS: BP 142/80; PULSE 82; RESP 18; TEMP 37; O2SAT 97
--- NOTE | 2022-11-16 10:27 | NUR.NOTE ---
Addendum entered by Isabel Sharp 11/16/22 16:43: 1637 Spoke with Home Health and notified them that Dr. Fitzgerald stated that the patient needs to follow up with PCP to get the orders for labs to be drawn. They are aware. Original Note: Nursing Note: Accessed pt chart to find the outpatient labs that need to be done for [facility].
== END 2022-11-14 16:48 | disposition home or self-care (01) ==
PROVIDERS: Emergency Provider Student in an Organized Health Care Education/Training Program; PCP Nurse Practitioner Adult Health
DX: S09.90XA Unspecified injury of head, initial encounter (principal); R74.8 Abnormal levels of other serum enzymes; K57.30 Diverticulosis of large intestine without perforation or abscess without bleeding; N20.0 Calculus of kidney; R91.8 Other nonspecific abnormal finding of lung field; I13.0 Hypertensive heart and chronic kidney disease with heart failure and stage 1 through stage 4 chronic kidney disease, or unspecified chronic kidney disease; I50.9 Heart failure, unspecified; N18.4 Chronic kidney disease, stage 4 (severe); E11.22 Type 2 diabetes mellitus with diabetic chronic kidney disease; I48.91 Unspecified atrial fibrillation; Z79.4 Long term (current) use of insulin; Z99.81 Dependence on supplemental oxygen; Z79.01 Long term (current) use of anticoagulants; R94.6 Abnormal results of thyroid function studies; W18.39XA Other fall on same level, initial encounter
CPT/HCPCS: 71250; 80053; 83690; 85027; 86850; 86900; 86901; 96374; 99284; 70450; 72125; 74176; 85025; 99283; J0131

== ENCOUNTER 2022-11-27 14:02 | Outpatient (REF) | payer MEDICARE, SELFPAY ==
[2022-11-27 16:26] LABS: Anion Gap 5.7 mmol/L (3-11); BUN 48 mg/dL (7-18); CO2 36.3 mmol/L (21.0-32.0); CREATININE 2.4 mg/dL (0.55-1.02); Calcium 9.8 mg/dL (8.5-10.1); Chloride 100 mmol/L (98-107); Estimated GFR 20.42 (mL/min/1.73m2); Glucose 147 mg/dL (74-106); Lipase 98 U/L (16-77); Magnesium 2.1 mg/dL (1.8-2.4); Sodium 142 mmol/L (136-145); TSH (W/Ref FT4) 1.93 uIU/mL (0.36-3.74); Uric Acid 8.1 mg/dL (2.6-6.0)
[2022-11-27 16:34] LABS: Hemoglobin A1C 7.7 % (<5.7)
[2022-11-27 17:03] LABS: Calculated LDL 59 mg/dL (<100); Cholesterol 124 mg/dL (<200); Folate 8.1 ng/mL (8.6-20.0); HDL Cholesterol 42 mg/dL (40-60); Triglyceride 115 mg/dL (<150); Vitamin B12 1845 pg/mL (193-986)
== END 2022-11-27 14:03 | disposition home or self-care (01) ==
LOC: LBN 14:02
PROVIDERS: PCP Nurse Practitioner Adult Health; Visit Provider Nurse Practitioner Adult Health
DX: E53.8 Deficiency of other specified B group vitamins (principal); E11.22 Type 2 diabetes mellitus with diabetic chronic kidney disease; N18.4 Chronic kidney disease, stage 4 (severe); R74.8 Abnormal levels of other serum enzymes; Z79.4 Long term (current) use of insulin; E04.1 Nontoxic single thyroid nodule; E83.42 Hypomagnesemia; I50.9 Heart failure, unspecified
CPT/HCPCS: 80048; 80061; 83690; 82607; 82746; 83036; 83735; 84443; 84550

== ENCOUNTER 2022-12-01 10:12 | Emergency (ER) | payer MEDICARE, SELFPAY ==
[2022-12-01] VITALS (20 sets, daily range): BP systolic 131–149; BP diastolic 54–71; PULSE 54–92; RESP 12–26; TEMP 36.9; O2SAT 86–100
--- NOTE | 2022-12-01 10:00 | RT.EKG_ITS ---
APPROVED REPORT Exam: Resting ECG Reason for Exam: chest pain Patient Location: E HR:66 bpm ECG Measurements Heart Rate 66 AXIS NV [id number] P [id number] QRSd 91 QRS -36 QT 685 T 41 QTc 705 Conclusion Atrial fibrillation...V-rate 58- 79, irreg A-activity Left axis deviation...QRS axis (-30,-90) Low voltage, precordial leads...precordial leads <1.0mV Prolonged QT interval...QTc >500mS
--- NOTE | 2022-12-01 10:15 | DI.RAD_ITS ---
Exam(s) XR CHEST 2V PA LATERAL EXAM: XR CHEST 2V PA LATERAL CLINICAL HISTORY: chest pain TECHNIQUE: 2D digital imaging was performed of the chest. Two images were obtained. PA and lateral views were obtained. COMPARISON: CR XR CHEST 2V PA LATERAL from 08/08/2019 CR XR PORTABLE CHEST AP from 07/23/2022 FINDINGS: MEDIASTINUM: Normal. HEART: Stable cardiac silhouette and pulmonary vasculature prominence. PULMONARY VASCULATURE: Normal. LUNGS: No new infiltrates are seen. Incidental note is again made of an azygos lobe. PLEURAL SPACE: No pleural effusion or pneumothorax. BONE:Within normal limits for the patient's age. OTHER FINDINGS:Normal. IMPRESSION: Stable appearance of the lungs. DATA REPOSITORY: RADIATION DOSE DELIVERED:
--- NOTE | 2022-12-01 10:15 | DI.CT_ITS ---
Exam(s) CT ABDOMEN PELVIS WO EXAM: CT ABDOMEN PELVIS WO CLINICAL HISTORY: left sided abdominal pain. TECHNIQUE: Imaging Protocol: Axial computed tomography images with coronal and sagittal reformatted images were created and reviewed. COMPARISON: CT CT CHEST/ABD/PEL WO from 11/14/2022 FINDINGS: Lack of IV contrast does limit evaluation of the abdominal pelvic organs. ABDOMEN: Lung Bases: Cardiomegaly. Coronary artery calcification. Calcified granuloma in the right lower lob e. Persistent non specific ground-glass opacities in the lung bases. Liver: Normal density. No measurable mass. Gallbladder and biliary tract: No radiodense calculus or biliary ductal dilation. Pancreas: Normal density, no abnormal calcifications or inflammatory process. Spleen: Normal. Kidneys: Normal size, contour and axis.There is now a 5 mm stone at the left UPJ causing [id number] rate hydronephrosis. Stable renal cysts no follow-up is recommended. Adrenal glands: No mass is seen. Lymph nodes: Within normal limits. Abdominal Aorta: Abdominal portion non-dilated. Atherosclerosis. PELVIS: Bladder:Symmetric distention, no gross wall thickening. Bowel: No obstruction or bowel wall thickening. No evidence of appendicitis. Peritoneal cavity: No ascites, collection or mesenteric inflammatory response. No free air. Reproductive organs: Status post hysterectomy. Bones: Within normal limits. Soft Tissues: There is a small fat containing umbilical hernia. IMPRESSION: 1. The 5 mm stone previously seen in the inferior pole of the left kidney now is at the left UPJ and causing [id number] hydronephrosis. 2. Findings were discussed with Dr. Gregory at 11:52 a.m. on 12/01/2022. RADIATION DOSE DELIVERED: 1,439.06mGy.cm Total DLP DATA REPOSITORY: All CT scans at this facility are submitted to the National Radiology Data Registry (NRDR) Dose Index Registry (DIR) with the [employer] ([employer]). RADIATION OPTIMIZATION: All CT scans at this facility use at least one of these dose optimization te chniques: automated exposure control; mA and/or kV adjustment per patient size (includes targeted exa ms where dose is matched to clinical indication); or iterative reconstruction.
--- NOTE | 2022-12-01 10:27 | W.ED.GENAD ---
Discharge Plan Disposition Specific Acute Inpt Facility: [facility] Condition: Stable Discharge Details Chief Complaint: Abd Prob Clinical Impression: Calculus of distal left ureter, Renal colic Primary Care Provider: Laverne Sung ED Provider: Neil Gregory Home Meds and New Rx's Prescriptions: No Action (DME) 3XL incontinence briefs See Rx Instructions .Route .MEDSUPPLY Qty: 30 2RF Rx Instructions: Uses one nightly at bedtime for urge incontinence acetaminophen [Tylenol Extra Strength] 500 mg tablet 500 mg PO Q6H PRN (DME) BD Eclipse Luer-Timi 3 mL 23 x 1 syringe See Rx Instructions .ROUTE .MEDSUPPLY Qty: 15 0RF Rx Instructions: for use with monthly self administered B12 injections docusate sodium [Colace] 100 mg capsule 100 mg PO BID allopurinol 100 mg tablet 100 mg PO DAILY Qty: 90 3RF Rx Instructions: Gout prevention insulin glargine 100 unit/mL (3 mL) insulin pen 12 unit subcut HS Patient Comments: 13 units per Laverne on 10/28/22 insulin aspart U-100 [Novolog FlexPen U-100 Insulin] 100 unit/mL (3 mL) insulin pen See Rx Instructions subcut AC MDD 30 units Qty: 90 3RF Rx Instructions: 2-10 units subcut before meals; For diabetes as directed with meals sliding scale: 100:0units 101-150: 2 units 151-200: 4 units 201-250: 6 units 251-300: 8 units over 300: 10 units (DME) Oxygen Tank See Rx Instructions .ROUTE .MEDSUPPLY Qty: 1 0RF Rx Instructions: 2-5L via NC continuous cyanocobalamin (vitamin B-12) 1,000 mcg/mL kit 1,000 mcg subcut QMONTH Qty: 1 11RF Rx Instructions: May self-administer at home for low B12 fluticasone propionate 50 mcg/actuation spray,suspension 1 spray NS DAILY PRN (Reason: allergy symptoms) Qty: 15.8 0RF atorvastatin 80 mg tablet 80 mg PO QHS Qty: 90 3RF Rx Instructions: Cholesterol (DME) Wheelchair See Rx Instructions .Route .MEDSUPPLY Qty: 1 0RF Rx Instructions: As directed nystatin 100,000 unit/gram powder 1 applic topical TID Qty: 60 1RF Rx Instructions: Apply liberal amount to skin under breast, groin folds, abd folds for 2-3 weeks or until rash resolved. (DME) pen needle, diabetic [BD Ultra-Fine Mini Pen Needle] 31 gauge x 3/16 needle See Rx Instructions .ROUTE .MEDSUPPLY Qty: 100 6RF Rx Instructions: for insulin administration qid dx E11.22 #360 Refill 3 magnesium oxide 400 mg (241.3 mg magnesium) tablet 400 mg PO DAILY Qty: 90 3RF Rx Instructions: Low magnesium pantoprazole [Protonix] 40 mg tablet,delayed release (DR/EC) 40 mg PO DAILY Qty: 90 3RF Rx Instructions: h/o GI bleed, stomach protection amlodipine 5 mg tablet 5 mg PO DAILY Qty: 90 3RF Rx Instructions: Blood pressure Eliquis 5 mg tablet 5 mg PO BID Qty: 180 3RF Hold Instructions: Resume on 11/15/22. (DME) FreeStyle Bradley 2 Sensor Kit See Rx Instructions .ROUTE .MEDSUPPLY Qty: 2 11RF Rx Instructions: As directed; on insulin AC & HS for goal A1C 8% Jardiance 10 mg tablet 10 mg PO QAM Qty: 90 3RF metolazone 2.5 mg tablet 2.5 mg PO DAILY PRN (Reason: fluid overload/CHF symptoms) Qty: 40 0RF Hold Instructions: Changed by Provider Rx Instructions: To use as directed torsemide 20 mg tablet 80 mg PO DAILY MDD 120mg/24h Qty: 240 0RF Calcium 600 with Vitamin D3 600 mg(1,500mg) -400 unit Tablet,Chewable 1 tab PO BID Medical Decision Making 77 yo female with hx of ckd, yarely, chf, chronic oxygen use, afib on apixaban, who comes in with complaints of left sided abdomen pain and n/v. She was seen earlier this month after a fall and had no acute findings on ct chest/abd/pelvis other than possible mild pancreatitis. She states she has not had pain until 3am this morning when she started to have left sided abdomen pain and n/v. She states when she does vomit she has chest discomfort, has no pain now. She is caox4 speaking clearly in no distress on arrival. She is on her home 4L [place] and is 94% during my exam, no tachycardia, no leg swelling or calf tenderness. She has tenderness in the luq and llq, no distention or guarding. Given her location of her pain will obtain cbc, cmp, lipase, ua and ct abdomen/pelvis without contrast due to her underlying kidney disease. She has no tachycardia and is on anticoagulation so doubt PE at this time and no tearing back pain to suggest dissection labs unremarkable, does have distal left uvj 5mm stone, pt still having pain, avoiding nsaid's due to her ckd, will give a dose of dilaudid and reassess. Has wbc's but no significant bacteriruria, no fevers and no leukocytosis so doubt infected stone or sepsis. Pt doesn't feel comfortable trying to pass this at home, would normally admit for pain control here but discussed with hospitalist and we don't have urology until so can't admit here. Will reach out to other hospitals that have urology coverage. [facility] have no beds, discussed [place] ju[place] [facility] [place] plan for a [place]. Pt updated and agrees, is stable currently Differential Diagnosis Differential Diagnosis: diverticulitis, kidney stone, pancreatitis Medical Records Medical records reviewed: Yes I reviewed the patient's medical records. Imaging Data Radiologic Study: Attestation: I personally reviewed and interpreted this imaging study as follows: Imaging: CT Scan Radiologist's impression: Patient Name: Jane Walker Unit #: [id number] Loc: ER ? Ordering Provider:? Neil Gregory M.D. Status: PRE ER ? Primary Care Provider: Laverne Sung NP Date of Exam: 12/01/22 Sex: F ? : 1945 Age: 77 ? Exam(s) a CT:CT abdomen & pelvis wo Exam(s) CT ABDOMEN ? PELVIS WO EXAM:? CT ABDOMEN ? PELVIS WO CLINICAL HISTORY: ? left sided abdominal pain.? TECHNIQUE:? Imaging Protocol: Axial computed tomography images with coronal and sagittal reformatted images were created and reviewed. COMPARISON:? CT CT CHEST/ABD/PEL WO from 11/14/2022 FINDINGS: Lack of IV contrast does limit evaluation of the abdominal pelvic organs.? ABDOMEN: Lung Bases: Cardiomegaly.? Coronary artery calcification.? Calcified granuloma in the right lower lobe.? Persistent non specific ground-glass opacities in the lung bases.? Liver: Normal density. No measurable mass. Gallbladder and biliary tract: No radiodense calculus or biliary ductal dilation. Pancreas: Normal density, no abnormal calcifications or inflammatory process. Spleen: Normal. Kidneys: Normal size, contour and axis.There is now a 5 mm stone at the left UPJ causing felt-ky-thxodqvt hydronephrosis.? Stable renal cysts no follow-up is recommended.? Adrenal glands: No mass is seen. Lymph nodes: Within normal limits.? Abdominal Aorta: Abdominal portion non-dilated. Atherosclerosis. PELVIS:? Bladder:Symmetric distention, no gross wall thickening. Bowel: No obstruction or bowel wall thickening. No evidence of appendicitis.? Peritoneal cavity: No ascites, collection or mesenteric inflammatory response.? No free air.? Reproductive organs: Status post hysterectomy.? Bones: Within normal limits. Soft Tissues: There is a small fat containing umbilical hernia.? IMPRESSION: 1. The 5 mm stone previously seen in the inferior pole of the left kidney now is at the left UPJ and causing [id number] hydronephrosis. 2. Findings were discussed with Dr. Gregory at 11:52 a.m. on 12/01/2022. Lab Data Lab results reviewed: Yes I reviewed the patient's lab results. ECG Data Attestation: I personally reviewed and interpreted this ECG (s) as follows: Prior ECG tracings: available for review Interpretation: afib/flutter, rate of 66, qtc calculated is due to multiple p waves from her aflutter, qtc on my read less then 500, no stemi HPI General Mode of arrival: EMS. Date/Time Provider Initiated Documentation: 12/01/22 10:21. Limitations to Documentation: no limitations. Information obtained by: patient. History of Present Illness 77 year old F presents to the emergency department with the chief complaint of left sided abdominal pain, described as moderate, Quality is described as sharp, and is localized to the abdomen. Patient started experiencing this hour(s) (7) and it has been constant. No relieving factors improve symptom(s), No exacerbating factors reported . Patient notes nausea/vomiting; denies fever/chills. Patient did receive the following treatments prior to arrival, none Related Data Home Medications Medication Instructions Recorded Confirmed calcium carbonate 600 mg-vitamin 1 tab PO BID 12/28/18 12/01/22 D3 10 mcg (400 unit) chewable tablet (Calcium 600 with Vitamin D3) acetaminophen 500 mg tablet 500 mg PO Q6H PRN 12/04/19 11/24/22 (Tylenol Extra Strength) syringe with needle 3 mL 23 x 1 #15 ea 11/24/21 11/24/22 (BD Eclipse Luer-Timi) Oxygen #1 ea 12/19/21 11/24/22 cyanocobalamin (vitamin B-12) 1,000 mcg subcut QMONTH #1 ea 01/20/22 12/01/22 1,000 mcg/mL injection kit docusate sodium 100 mg capsule 100 mg PO BID 02/10/22 11/24/22 (Colace) fluticasone propionate 50 1 spray NS DAILY PRN allergy 02/11/22 12/01/22 mcg/actuation nasal symptoms #15.8 mL spray,suspension atorvastatin 80 mg tablet 80 mg PO QHS #90 tabs 05/11/22 12/01/22 3XL incontinence briefs #30 ea 05/30/22 11/24/22 Wheelchair #1 ea 06/08/22 11/24/22 nystatin 100,000 unit/gram topical 1 applic topical TID #60 grams 06/08/22 11/24/22 powder pen needle, diabetic 31 gauge x #100 ea 07/07/22 11/24/22 3/16 (BD Ultra-Fine Mini Pen Needle) allopurinol 100 mg tablet 100 mg PO DAILY #90 tabs 08/03/22 12/01/22 amlodipine 5 mg tablet 5 mg PO DAILY #90 tabs 08/03/22 12/01/22 apixaban 5 mg tablet (Eliquis) 5 mg PO BID #180 tabs 08/03/22 12/01/22 magnesium oxide 400 mg (241.3 mg 400 mg PO DAILY #90 tabs 08/03/22 12/01/22 magnesium) tablet pantoprazole 40 mg tablet,delayed 40 mg PO DAILY #90 tabs 08/03/22 12/01/22 release (Protonix) empagliflozin 10 mg tablet 10 mg PO QAM #90 tabs 08/19/22 12/01/22 (Jardiance) flash glucose sensor (FreeStyle #2 ea 08/19/22 11/24/22 Bradley 2 Sensor kit) metolazone 2.5 mg tablet 2.5 mg PO DAILY PRN fluid 08/31/22 12/01/22 overload/CHF symptoms #40 tabs torsemide 20 mg tablet 80 mg PO DAILY #240 tabs 10/19/22 12/01/22 insulin aspart U-100 100 unit/mL See Rx Instructions subcut AC DMT2 11/23/22 12/01/22 (3 mL) subcutaneous pen (Novolog #90 mL FlexPen U-100 Insulin aspart) insulin glargine 100 unit/mL (3 12 unit subcut HS 11/23/22 12/01/22 mL) subcutaneous pen Previous Rx's Medication Instructions Recorded syringe with needle 3 mL 23 x 1 #15 ea 11/24/21 (BD Eclipse Luer-Timi) Oxygen #1 ea 12/19/21 cyanocobalamin (vitamin B-12) 1,000 mcg subcut QMONTH #1 ea 01/20/22 1,000 mcg/mL injection kit fluticasone propionate 50 1 spray NS DAILY PRN allergy 02/11/22 mcg/actuation nasal symptoms #15.8 mL spray,suspension atorvastatin 80 mg tablet 80 mg PO QHS #90 tabs 05/11/22 3XL incontinence briefs #30 ea 05/30/22 Wheelchair #1 ea 06/08/22 nystatin 100,000 unit/gram topical 1 applic topical TID #60 grams 06/08/22 powder pen needle, diabetic 31 gauge x #100 ea 07/07/22 3/16 (BD Ultra-Fine Mini Pen Needle) allopurinol 100 mg tablet 100 mg PO DAILY #90 tabs 08/03/22 amlodipine 5 mg tablet 5 mg PO DAILY #90 tabs 08/03/22 apixaban 5 mg tablet (Eliquis) 5 mg PO BID #180 tabs 08/03/22 magnesium oxide 400 mg (241.3 mg 400 mg PO DAILY #90 tabs 08/03/22 magnesium) tablet pantoprazole 40 mg tablet,delayed 40 mg PO DAILY #90 tabs 08/03/22 release (Protonix) empagliflozin 10 mg tablet 10 mg PO QAM #90 tabs 08/19/22 (Jardiance) flash glucose sensor (FreeStyle #2 ea 08/19/22 Bradley 2 Sensor kit) metolazone 2.5 mg tablet 2.5 mg PO DAILY PRN fluid 08/31/22 overload/CHF symptoms #40 tabs torsemide 20 mg tablet 80 mg PO DAILY #240 tabs 10/19/22 insulin aspart U-100 100 unit/mL See Rx Instructions subcut AC DMT2 11/23/22 (3 mL) subcutaneous pen (Novolog #90 mL FlexPen U-100 Insulin aspart) Allergies Allergy/AdvReac Type Severity Reaction Status Date / Time codeine Allergy Severe Swelling/Ed Verified 12/01/22 11:31 warner furosemide [From Lasix] Allergy Severe Swelling/Ed Verified 12/01/22 11:31 warner morphine Allergy Severe Swelling/Ed Verified 12/01/22 11:31 warner peanut Allergy Severe Nausea Verified 12/01/22 11:31 tree nut Allergy Severe Verified 12/01/22 11:31 acetaminophen [From Percocet] Allergy Intermediate ITCHY Verified 12/01/22 11:31 adhesive tape Allergy Intermediate Skin Rash Verified 12/01/22 11:31 oxycodone HCl [From Percocet] Allergy Intermediate ITCHY Verified 12/01/22 11:31 apricot Allergy Unknown Uncoded 12/01/22 11:31 General Stated Complaint: Abd Prob GERALDINE: 3 Review of Systems All systems reviewed & are unremarkable except as noted in HPI and below Constitutional Constitutional: Denies chills, Denies fever(s) and Denies weakness Cardiovascular Cardiovascular: Reports chest pain and Denies dyspnea Respiratory Respiratory: Denies cough and Denies dyspnea Gastrointestinal Gastrointestinal: Reports abdominal pain, Reports nausea and Reports vomiting Musculoskeletal Musculoskeletal: Denies joint swelling Neurologic Neurologic: Denies weakness Psychiatric Psychiatric: Denies depression PFSH All Active Problems (Updated 12/01/22 @ 15:34 by Neil Gregory MD) Calculus of distal left ureter (Acute) Renal colic (Acute) Advance care planning (Acute) Right thyroid nodule (Acute ~11/2022) Fall (Acute ~11/2022) Elevated lipase (Acute) Kidney stone on left side (Acute) Ground glass opacity present on imaging of lung (Acute) JOY (acute kidney injury) (Acute) CKD (chronic kidney disease) (Chronic) At high risk for skin breakdown (Acute) Impaired instrumental activities of daily living (Acute) Deficit in activities of daily living (ADL) (Acute) Hyperuricemia (Acute) Bradycardia (Acute) Gout (Chronic) CKD stage 4 due to type 2 diabetes mellitus (Acute) Respiratory failure with hypoxia and hypercapnia (Acute) Obstructive sleep apnea treated with BiPAP (Chronic) CHF (congestive heart failure) (Acute 02/23/14) Preserved EF (10/2020 & 08/2021 ECHO) Obstructive sleep apnea (Chronic 02/23/14) Sleep Med Referral, 04/17/2019-->Very severe YARELY; CPAP ([facility]) with continuous O2, new Panda C-Pap 01/2021 Type II diabetes mellitus (Chronic) Hypertension (Chronic) Hyperlipidemia (Chronic) Atrial fibrillation (Chronic) Apixaban Anemia (Chronic) Pulmonary hypertension (Chronic) Dependence on supplemental oxygen (Chronic) YARELY + Pulm HTN Palliative care status (Chronic) Full code status (Chronic) Chronic low back pain (Chronic 07/24/15) CT-lumbar spine 2019-- Severe multilevel degenerative changes in the lumbar spine resulting in neural foraminal and central spinal canal stenosis. Chronic anticoagulation (Chronic) AF--Apixaban Risk for falls (Chronic) Sedentary lifestyle (Chronic) B12 deficiency (Chronic) Start B12 injections; elevated MCV Chronic respiratory failure with hypercapnia (Chronic) Obesity hypoventilation syndrome (Chronic) Obesity + Severe YARELY + Chronic Hypercapnia Dependent on walker for ambulation (Chronic) Hypomagnesemia (Acute ~07/2021) Mild mitral valve regurgitation (Acute ~08/2021) ECHO Trace tricuspid valve regurgitation (Acute ~08/2021) ECHO Medical History Adult body mass index 50.0-59.9 Carpal tunnel syndrome, bilateral (12/17/16) Dietary counseling reviewed sodium levels in her food, how to count mg, goal of 1500 mg daily due to CHF Diverticulosis 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 Folate deficiency Low 12/2018; resolved 05/2019 labs; discontinued 02/05/2020 Gout attack (~10/2020) R podagra, first attack 10/2020-->treated with colchine, effective h/o elbow fx H/O fracture of nose H/O rotator cuff tear Heme + stool [facility] Upper GI Endoscopy Peptic Duodenitis (pathology report); repeat hemoccults NEG 11/2019 HTN (hypertension) Insulin dependent diabetes mellitus Iron deficiency EGD 05/23/19 at [facility]; discont supp iron & vit c 02/05/2020; Hgb stable and iron constipating; she will obtain dietarily Knee pain, left Lipoma Lipoma of arm YARELY (obstructive sleep apnea) Peptic ulcer of duodenum [facility] Path reports upper endoscopy; RX Carafate Pressure sore on buttocks Renal calculi Non obstructive per CT Restrictive lung disease (~03/2014) PFTs validated 04/04/2014-->see scanned docs Right carpal tunnel syndrome Sciatica of right side without back pain RX Medrol Spinal stenosis, lumbar Trigger finger, right middle finger Injection: 05/04/2022 Surgical History Biopsy, Temporal Artery (01/18/15) DR.C YOUNG Colonoscopy - MAC (08/14/16) History of carpal tunnel repair Left- 1998 Right- 2017 History of shoulder surgery Right shoulder repair - 2004 History of total abdominal hysterectomy and bilateral salpingo-oophorectomy (~02/1999) History of total bilateral knee replacement History of total knee arthroplasty bilateral Family History Mother Heart disease Father Heart disease Lung cancer Brother Heart disease AAA (abdominal aortic aneurysm, ruptured) Brother Obesity Son No problems noted. Daughter Stillborn, abnormal Daughter No problems noted. 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 Pets and animals: Yes Pets and animals: cat(s) Sexually active: No Do you think of yourself as: straight/heterosexual Current gender identity: female What is your relationship status?: How often do you talk on the phone with friends or family?: once per week How often do you get together with friends or relatives?: once per week Panel score (0-1 are the most socially isolated patients): 0 What type of physical activity do you participate in: none and sedentary lifestyle Special jakob needs: No Agree to transfusion: Yes Seatbelt use: always In current or past relationships, have you been: made to feel afraid Do you feel safe at home: Yes Do you feel safe in your relationship?: Yes Exam Const General: no acute distress Orientation: alert HENMT Head: normal to inspection Ears: external ears normal General nose exam: external nose normal Mouth: moist mucous membranes Eyes General: appearance normal, both eyes and all related structures Neck Neck: normal visual inspection Resp Effort & Inspection: normal respiratory effort and able to speak in complete sentences Auscultation: clear to auscultation bilaterally Cardio Jugular venous pressure: no JVD Rate: regular rate GI Palpation: soft and tender Skin General skin exam: no rashes or lesions noted Neuro General: patient alert and patient oriented x3 Extrem General: normal to inspection Psych Mental Status: mental status grossly normal Course Vital Signs Vital signs: Vital Signs Temperature 36.9 C 12/01/22 10:14 Pulse 77 12/01/22 10:14 Respiratory Rate 18 12/01/22 10:14 Blood Pressure 140/64 12/01/22 10:14 Pulse Oximetry 91 L 12/01/22 10:14 Temperature 36.9 C 12/01/22 10:14 Temperature Source Oral 12/01/22 10:14 Pulse 77 12/01/22 10:14 Respiratory Rate 18 12/01/22 10:14 Respiratory Effort Normal 12/01/22 10:19 Blood Pressure 140/64 12/01/22 10:14 Blood Pressure Position Sitting 12/01/22 10:14 Pulse Oximetry 91 L 12/01/22 10:14 Oxygen Delivery Method Room Air 12/01/22 10:14 Oxygen Flow Rate 0 12/01/22 10:14 Pain Level 10 12/01/22 10:14
[2022-12-01 10:28] LABS: Abs Immature Grans 0.03 10^3/uL (0.0-0.06); Absolute Basophil Count 0.06 10^3/uL (0.0-0.2); Absolute Eosinophil Count 0.18 10^3/uL (0.0-0.7); Absolute Lymphocyte Count 1.34 10^3/uL (1.2-3.4); Absolute Monocyte Count 0.57 10^3/uL (0.1-0.8); Absolute Neutrophil Count 7.83 10^3/uL (1.2-6.7); BE (Venous) 11 mmol/L (-2-3); Basophils % 0.6; Eosinophils % 1.8; HCO3 (Venous) 37 mmol/L (23-28); HCT 38.9 % (36.0-46.0); HGB 11.8 g/dL (11.2-15.7); Immature Grans % 0.3; Lymphocytes % 13.4; MCH 30.9 pg (27.0-33.0); MCHC 30.3 % (32.0-36.0); MCV 102 fL (80-95); MPV 9.5 fL (8.0-11.0); Monocytes % 5.7; Neutrophils % 78.2; O2 Sat (Venous) 50 %; Platelet Count 246 10^3/uL (130-400); RBC 3.82 10^6/uL (3.93-5.22); RDW 17.8 % (11.7-14.6); RDW-SD 67.3 fL; TCO2 (Venous) 35 mmol/L (24-29); WBC 10.01 10^3/uL (4.4-10.8); pH (Venous) 7.34 (7.31-7.41); pO2 (Venous) 31 mmHg
[2022-12-01 10:30] LABS: pCO2 (Venous) 68 mmHg (41-51)
[2022-12-01] MEDS: fentaNYL 100 MCG/2 ML VIAL 50 MCG IVP (10:47)
[2022-12-01] MEDS: Ondansetron 4 MG/2 ML VIAL IVP (10:47)
[2022-12-01 10:56] LABS: ALT 10 U/L (14-59); AST 14 U/L (15-37); Albumin 3.2 g/dL (3.4-5.0); Alkaline Phosphatase 116 U/L (46-116); Anion Gap 7.5 mmol/L (3-11); BUN 47 mg/dL (7-18); Bilirubin, Total 0.4 mg/dL (0.2-1.0); CO2 34.5 mmol/L (21.0-32.0); CREATININE 2.8 mg/dL (0.55-1.02); Calcium 9.9 mg/dL (8.5-10.1); Chloride 98 mmol/L (98-107); Estimated GFR 16.97 (mL/min/1.73m2); Glucose 196 mg/dL (74-106); Lipase 74 U/L (16-77); Potassium 3.6 mmol/L (3.5-5.1); Sodium 140 mmol/L (136-145); Total Protein 7.9 g/dL (6.4-8.2); Troponin I < 50 ng/L (<or=60)
[2022-12-01 11:03] LABS: INR 1.1 (0.9-1.1); PTT Activated 28.1 sec (21.5-31.9); Prothrombin Time 11.5 sec (9.3-11.0)
[2022-12-01 12:45] LABS: Bilirubin Negative (Negative); Blood Moderate (Negative); Clarity Cloudy (Clear); Glucose 250 mg/dL (Negative); Ketones Negative (Negative); Leukocyte Esterase Moderate (Negative); Nitrite Negative (Negative); Specific Gravity 1.015 (1.005-1.025); Urobilinogen 0.2 mg/dL (Up to 0.2)
[2022-12-01 12:51] LABS: C & S Indicated? Yes; WBC >50 HPF (0-5)
[2022-12-01] MEDS: HYDROmorphone 2 MG/ML SYR 0.5 MG IVP (13:20)
[2022-12-01 14:03] LABS: Troponin I < 50 ng/L (<or=60)
[2022-12-01] MEDS: Tamsulosin 0.4 MG CAPCR PO (14:07)
[2022-12-01] MEDS: Normal Saline 1,000 ML 150 ML IV (15:00)
[2022-12-01] MEDS: Ondansetron 4 MG/2 ML VIAL (17:05)
== END 2022-12-01 16:58 | disposition home or self-care (01) ==
PROVIDERS: Emergency Provider Emergency Medicine; PCP Nurse Practitioner Adult Health
DX: R10.32 Left lower quadrant pain (principal); R11.2 Nausea with vomiting, unspecified; I48.91 Unspecified atrial fibrillation; N13.2 Hydronephrosis with renal and ureteral calculous obstruction; I13.10 Hypertensive heart and chronic kidney disease without heart failure, with stage 1 through stage 4 chronic kidney disease, or unspecified chronic kidney disease; E11.22 Type 2 diabetes mellitus with diabetic chronic kidney disease; N18.4 Chronic kidney disease, stage 4 (severe); Z79.01 Long term (current) use of anticoagulants; Z79.4 Long term (current) use of insulin; Z99.81 Dependence on supplemental oxygen
CPT/HCPCS: 80053; 82805; 83690; 93005; 96374; 96375; 96376; 99284; 71046; 74176; 81003; 81015; 83735; 84443; 84484; 85025; 85610; 85730; 87086; 93010; J1170; J2405; J3010

== ENCOUNTER 2023-01-21 19:42 | Outpatient (REF) | payer MEDICARE, SELFPAY ==
[2023-01-21 20:57] LABS: Abs Immature Grans 0.03 10^3/uL (0.0-0.06); Absolute Basophil Count 0.04 10^3/uL (0.0-0.2); Absolute Lymphocyte Count 2.03 10^3/uL (1.2-3.4); Absolute Monocyte Count 0.67 10^3/uL (0.1-0.8); Basophils % 0.5; HCT 35.6 % (36.0-46.0); HGB 11.1 g/dL (11.2-15.7); Immature Grans % 0.4; Lymphocytes % 25.2; MCH 31.8 pg (27.0-33.0); MCHC 31.2 % (32.0-36.0); MCV 102 fL (80-95); MPV 10.6 fL (8.0-11.0); Monocytes % 8.3; Neutrophils % 60.6; Platelet Count 261 10^3/uL (130-400); RBC 3.49 10^6/uL (3.93-5.22); RDW 16.3 % (11.7-14.6); RDW-SD 61.1 fL; WBC 8.07 10^3/uL (4.4-10.8)
[2023-01-21 21:12] LABS: Anion Gap 6.2 mmol/L (3-11); BUN 55 mg/dL (7-18); CO2 32.8 mmol/L (21.0-32.0); CREATININE 2.1 mg/dL (0.55-1.02); Calcium 9.9 mg/dL (8.5-10.1); Chloride 98 mmol/L (98-107); Estimated GFR 23.97 (mL/min/1.73m2); Glucose 247 mg/dL (74-106); Potassium 4.8 mmol/L (3.5-5.1); Sodium 137 mmol/L (136-145); Uric Acid 10.7 mg/dL (2.6-6.0)
== END 2023-01-21 19:43 | disposition home or self-care (01) ==
LOC: LBN 19:42
PROVIDERS: PCP Nurse Practitioner Adult Health; Visit Provider Nurse Practitioner Adult Health
DX: N18.4 Chronic kidney disease, stage 4 (severe) (principal); M10.071 Idiopathic gout, right ankle and foot
CPT/HCPCS: 80048; 84550; 85025

== ENCOUNTER 2023-02-09 20:09 | Outpatient (REF) | payer MEDICARE, SELFPAY ==
[2023-02-09 20:21] LABS: Abs Immature Grans 0.02 10^3/uL (0.0-0.06); Absolute Basophil Count 0.04 10^3/uL (0.0-0.2); Absolute Eosinophil Count 0.31 10^3/uL (0.0-0.7); Absolute Lymphocyte Count 2.18 10^3/uL (1.2-3.4); Absolute Monocyte Count 0.64 10^3/uL (0.1-0.8); Absolute Neutrophil Count 5.69 10^3/uL (1.2-6.7); Basophils % 0.5; Eosinophils % 3.5; HGB 11.6 g/dL (11.2-15.7); Immature Grans % 0.2; Lymphocytes % 24.5; MCH 32.5 pg (27.0-33.0); MCHC 32.2 % (32.0-36.0); MCV 101 fL (80-95); MPV 10.8 fL (8.0-11.0); Monocytes % 7.2; Neutrophils % 64.1; Platelet Count 267 10^3/uL (130-400); RBC 3.57 10^6/uL (3.93-5.22); RDW 15.6 % (11.7-14.6); RDW-SD 57.8 fL; WBC 8.88 10^3/uL (4.4-10.8)
[2023-02-09 20:29] LABS: Anion Gap 7.1 mmol/L (3-11); BUN 53 mg/dL (7-18); CO2 31.9 mmol/L (21.0-32.0); CREATININE 2.1 mg/dL (0.55-1.02); Calcium 10.1 mg/dL (8.5-10.1); Chloride 99 mmol/L (98-107); Estimated GFR 23.97 (mL/min/1.73m2); Glucose 204 mg/dL (74-106); Potassium 4.4 mmol/L (3.5-5.1); Sodium 138 mmol/L (136-145)
== END 2023-02-09 20:10 | disposition home or self-care (01) ==
LOC: LBN 20:09
PROVIDERS: PCP Nurse Practitioner Adult Health; Visit Provider Family Medicine
DX: N13.2 Hydronephrosis with renal and ureteral calculous obstruction (principal)
CPT/HCPCS: 80048; 85025

== ENCOUNTER 2023-02-24 11:42 | Emergency (ER) | payer MEDICARE, SELFPAY ==
[2023-02-24 11:43] VITALS: BP 133/62; PULSE 83; RESP 16; TEMP 36.8; O2SAT 97
--- NOTE | 2023-02-24 12:11 | ED.GENADUL_ITS ---
Discharge Plan Disposition Patient Disposition: Home Condition: Stable Discharge Details Clinical Impression: Acute UTI Primary Care Provider: Laverne Sung ED Provider: Barbara Gomes Home Meds and New Rx's Prescriptions: New cephalexin 500 mg capsule 500 mg PO QID 14 Days Qty: 56 0RF No Action (DME) 3XL incontinence briefs See Rx Instructions .Route .MEDSUPPLY Qty: 30 2RF Rx Instructions: Uses one nightly at bedtime for urge incontinence acetaminophen [Tylenol Extra Strength] 500 mg tablet 500 mg PO Q6H PRN (DME) BD Eclipse Luer-Timi 3 mL 23 x 1 syringe See Rx Instructions .ROUTE .MEDSUPPLY Qty: 15 0RF Rx Instructions: for use with monthly self administered B12 injections docusate sodium [Colace] 100 mg capsule 100 mg PO BID PRN allopurinol 100 mg tablet 100 mg PO DAILY Qty: 90 3RF Rx Instructions: Gout prevention (DME) Oxygen Tank See Rx Instructions .ROUTE .MEDSUPPLY Qty: 1 0RF Rx Instructions: 2-5L via NC continuous atorvastatin 80 mg tablet 80 mg PO QHS Qty: 90 3RF Rx Instructions: Cholesterol (DME) Wheelchair See Rx Instructions .Route .MEDSUPPLY Qty: 1 0RF Rx Instructions: As directed (DME) pen needle, diabetic [BD Ultra-Fine Mini Pen Needle] 31 gauge x 3/16 needle See Rx Instructions .ROUTE .MEDSUPPLY Qty: 100 6RF Rx Instructions: for insulin administration qid dx E11.22 #360 Refill 3 amlodipine 5 mg tablet 5 mg PO DAILY Qty: 90 3RF Rx Instructions: Blood pressure Eliquis 5 mg tablet 5 mg PO BID Qty: 180 3RF Hold Instructions: Resume on 11/15/22. (DME) FreeStyle Bradley 2 Sensor Kit See Rx Instructions .ROUTE .MEDSUPPLY Qty: 2 11RF Rx Instructions: As directed; on insulin AC & HS for goal A1C 8% valacyclovir 1 gram tablet 1,000 mg PO BID bisacodyl [Gentle Laxative (bisacodyl)] 10 mg suppository 10 mg DC DAILY PRN polyethylene glycol 3350 [ClearLax] 17 gram/dose powder 17 g PO DAILY PRN Enema 19-7 gram/118 mL enema 118 ml DC ONCE PRN folic acid 1 mg tablet 1 mg PO DAILY magnesium hydroxide [Dulcolax (magnesium hydroxide)] 400 mg/5 mL suspension 30 ml PO DAILY PRN torsemide 20 mg tablet 20 mg PO DAILY MDD 120mg/24h Discharge Instructions Instructions: Urinary Tract Infection in Women (ED), Nephrostomy Tube Care (ED) Referrals: Laverne Sung, DOCUMENTUM CONSULTANT [Primary Care Provider] - 3 days Discharge Data Discharge Physician: Barbara Gomes Medical Decision Making 77-year-old female presents for evaluation of decreased urine output. Appa rently the tubing was kinked prior to arrival. Patient states that the tubing was unkinked at the facility. She is draining a large amount of urine. Her abdominal exam is benign. There is no infectious symptoms. Laboratory studies show no significant elevation of white count. UA is concerning for infection. There are leukocytes as well as nitrates and bacteria. On review of patient's prior urine microscopy she has never had sensitivities grow out secondary to contamination. I will start her on Keflex. She has had good urine output while in the emergency department. I do feel that outpatient treatment is appropriate at this time. She will return with any worsening symptoms. HPI General Date/Time Provider Initiated Documentation: 02/24/23 12:03 . HPI Narrative: 77-year-old female with left-sided nephrostomy tube presents for evaluation of decreased urine output. Patient apparently did not have any output from her nephrostomy for 5 days. She states that she was getting up to use the commode to urinate which is unusual for her. Today they noted that her tubing was kinked. They unkinked the tubing and a large amount of urine was released. There is some blood in the urine. Patient states that she feels well. She denies any abdominal pain. No fevers or chills. No nausea or vomiting. Nursing staff was concerned that she may be more tired than usual. Patient denies any fatigue. Related Data Home Medications Medication Instructions Recorded Confirmed acetaminophen 500 mg tablet 500 mg PO Q6H PRN 12/04/19 02/24/23 (Tylenol Extra Strength) syringe with needle 3 mL 23 x 1 #15 ea 11/24/21 02/24/23 (BD Eclipse Luer-Timi) Oxygen #1 ea 12/19/21 02/24/23 docusate sodium 100 mg capsule 100 mg PO BID PRN 02/10/22 02/24/23 (Colace) atorvastatin 80 mg tablet 80 mg PO QHS #90 tabs 05/11/22 02/24/23 3XL incontinence briefs #30 ea 05/30/22 02/24/23 Wheelchair #1 ea 06/08/22 02/24/23 pen needle, diabetic 31 gauge x #100 ea 07/07/22 02/24/2305/28 (BD Ultra-Fine Mini Pen Needle) allopurinol 100 mg tablet 100 mg PO DAILY #90 tabs 08/03/22 02/24/23 amlodipine 5 mg tablet 5 mg PO DAILY #90 tabs 08/03/22 02/24/23 apixaban 5 mg tablet (Eliquis) 5 mg PO BID #180 tabs 08/03/22 02/24/23 flash glucose sensor (FreeStyle #2 ea 08/19/22 02/24/23 Bradley 2 Sensor kit) bisacodyl 10 mg rectal suppository 10 mg DC DAILY PRN 02/24/23 02/24/23 (Gentle Laxative (bisacodyl)) cephalexin 500 mg capsule 500 mg PO QID 14 days #56 caps 02/24/23 folic acid 1 mg tablet 1 mg PO DAILY 02/24/23 02/24/23 magnesium hydroxide 400 mg/5 mL 30 ml PO DAILY PRN 02/24/23 02/24/23 oral suspension (Dulcolax (magnesium hydroxide)) polyethylene glycol 3350 17 17 g PO DAILY PRN 02/24/23 02/24/23 gram/dose oral powder (ClearLax) sodium phosphates 19 gram-7 118 ml DC ONCE PRN 02/24/23 02/24/23 gram/118 mL enema (Enema) torsemide 20 mg tablet 20 mg PO DAILY 02/24/23 02/24/23 valacyclovir 1 gram tablet 1,000 mg PO BID 02/24/23 02/24/23 Previous Rx's Medication Instructions Recorded syringe with needle 3 mL 23 x 1 #15 ea 11/24/21 (BD Eclipse Luer-Timi) Oxygen #1 ea 12/19/21 atorvastatin 80 mg tablet 80 mg PO QHS #90 tabs 05/11/22 3XL incontinence briefs #30 ea 05/30/22 Wheelchair #1 ea 06/08/22 pen needle, diabetic 31 gauge x #100 ea 07/07/22/ (BD Ultra-Fine Mini Pen Needle) allopurinol 100 mg tablet 100 mg PO DAILY #90 tabs 08/03/22 amlodipine 5 mg tablet 5 mg PO DAILY #90 tabs 08/03/22 apixaban 5 mg tablet (Eliquis) 5 mg PO BID #180 tabs 08/03/22 flash glucose sensor (FreeStyle #2 ea 08/19/22 Bradley 2 Sensor kit) cephalexin 500 mg capsule 500 mg PO QID 14 days #56 caps 02/24/23 Allergies Allergy/AdvReac Type Severity Reaction Status Date / Time codeine Allergy Severe Swelling/Ed Verified 02/24/23 12:43 warner furosemide [From Lasix] Allergy Severe Swelling/Ed Verified 02/24/23 12:43 warner morphine Allergy Severe Swelling/Ed Verified 02/24/23 12:43 warner peanut Allergy Severe Nausea Verified 02/24/23 12:43 tree nut Allergy Severe Verified 02/24/23 12:43 acetaminophen [From Percocet] Allergy Intermediate ITCHY Verified 02/24/23 12:43 adhesive tape Allergy Intermediate Skin Rash Verified 02/24/23 12:43 oxycodone HCl [From Percocet] Allergy Intermediate ITCHY Verified 02/24/23 12:43 apricot Allergy Unknown Uncoded 02/24/23 12:43 General Stated Complaint: Urinary GERALDINE: 3 Review of Systems Narrative: Remainder of review of systems otherwise negative except for as noted in the HPI x 10. PFSH All Active Problems (Updated 02/24/23 @ 14:17 by Barbara Gomes MD) Acute UTI (Acute) Advance care planning (Acute) Right thyroid nodule (Acute ~11/2022) JOY (acute kidney injury) (Acute) CKD (chronic kidney disease) (Chronic) At high risk for skin breakdown (Acute) Impaired instrumental activities of daily living (Acute) Deficit in activities of daily living (ADL) (Acute) Hyperuricemia (Acute) Bradycardia (Acute) Gout (Chronic) CKD stage 4 due to type 2 diabetes mellitus (Acute) Respiratory failure with hypoxia and hypercapnia (Acute) Obstructive sleep apnea treated with BiPAP (Chronic) CHF (congestive heart failure) (Acute 02/23/14) Preserved EF (10/2020 & 08/2021 ECHO) Obstructive sleep apnea (Chronic 02/23/14) Sleep Med Referral, 04/17/2019-->Very severe YARELY; CPAP ([facility]) with continuous O2, new Panda C-Pap 01/2021 Type II diabetes mellitus (Chronic) Hypertension (Chronic) Hyperlipidemia (Chronic) Atrial fibrillation (Chronic) Apixaban Anemia (Chronic) Pulmonary hypertension (Chronic) Dependence on supplemental oxygen (Chronic) YARELY + Pulm HTN Palliative care status (Chronic) Full code status (Chronic) Chronic low back pain (Chronic 07/24/15) CT-lumbar spine 2019-- Severe multilevel degenerative changes in the lumbar spine resulting in neural foraminal and central spinal canal stenosis. Chronic anticoagulation (Chronic) AF--Apixaban Risk for falls (Chronic) Sedentary lifestyle (Chronic) B12 deficiency (Chronic) Start B12 injections; elevated MCV Chronic respiratory failure with hypercapnia (Chronic) Obesity hypoventilation syndrome (Chronic) Obesity + Severe YARELY + Chronic Hypercapnia Dependent on walker for ambulation (Chronic) Hypomagnesemia (Acute ~07/2021) Mild mitral valve regurgitation (Acute ~08/2021) ECHO Trace tricuspid valve regurgitation (Acute ~08/2021) ECHO Medical History Diverticulosis Knee pain, left Pressure sore on buttocks Trigger finger, right middle finger Injection: 05/04/2022 Right carpal tunnel syndrome Lipoma Restrictive lung disease (~03/2014) PFTs validated 04/04/2014-->see scanned docs Gout attack (~10/2020) R podagra, first attack 10/2020-->treated with colchine, effective Sciatica of right side without back pain RX Medrol Dietary counseling reviewed sodium levels in her food, how to count mg, goal of 1500 mg daily due to CHF Renal calculi Non obstructive per CT Peptic ulcer of duodenum [facility] [place] [place] Path reports upper endoscopy; RX Carafate Female hirsutism Carpal tunnel syndrome, bilateral (12/17/16) Lipoma of arm Heme + stool [facility] [place] [place] Upper GI Endoscopy Peptic Duodenitis (pathology report); repeat hemoccults NEG 11/2019 Folate deficiency Low 12/2018; resolved 05/2019 labs; discontinued 02/05/2020 Iron deficiency EGD 05/23/19 at [facility] [place] [place]; discont supp iron & vit c 02/05/2020; Hgb stable and iron constipating; she will obtain dietarily YARELY (obstructive sleep apnea) Spinal stenosis, lumbar HTN (hypertension) Insulin dependent diabetes mellitus Edentulous H/O rotator cuff tear H/O fracture of nose h/o elbow fx Adult body mass index 50.0-59.9 Surgical History History of total knee arthroplasty bilateral History of total abdominal hysterectomy and bilateral salpingo-oophorectomy (~02/1999) History of shoulder surgery Right shoulder repair - 2004 History of carpal tunnel repair Left- 1998 Right- 2018 Colonoscopy - MAC (08/14/16) Biopsy, Temporal Artery (01/18/15) DR.C YOUNG History of total bilateral knee replacement Family History Mother Heart disease Father Heart disease Lung cancer Brother Heart disease AAA (abdominal aortic aneurysm, ruptured) Brother Obesity Son No problems noted. Daughter Stillborn, abnormal Daughter No problems noted. Social History Smoking/Tobacco Use Status: Never Second Hand Exposure: Yes Smoking risk assessment performed?: Yes Alcohol Intake: former Details: never drank heavily but her husbands did Drug use: Never Substance use type: does not use Adopted: No Caregiver/Support person: Yes Foster care: No Household members: children Housing: retirement Number of Children: 2 number of grandchildren: 8 Communication Needs: Corrective Lenses Education Level: middle school Do you need help understanding health information?: Always current occupation: Retired- [employer] Pets and animals: Yes Pets and animals: cat(s) Sexually active: No Do you think of yourself as: straight/heterosexual Current gender identity: female What is your relationship status?: How often do you talk on the phone with friends or family?: once per week How often do you get together with friends or relatives?: once per week Panel score (0-1 are the most socially isolated patients): 0 What type of physical activity do you participate in: none and sedentary lifestyle Special jakob needs: No Agree to transfusion: Yes Seatbelt use: always In current or past relationships, have you been: made to feel afraid Do you feel safe at home: Yes Do you feel safe in your relationship?: Yes Additional Social history: Stays at [facility] for rehab services hoping to go home soon 02/24/23 Exam Narrative Exam Narrative: General: non-toxic, no respiratory distress, comfortable HEENT: normocephalic, atraumatic, lids and lashes normal, PERRL, EOMI, anicteric sclera, no conjunctival injection, moist oral mucosa Card: regular rate and rhythm, S1S2, no murmurs, rubs, or gallops Lungs: good air entry, clear to auscultation bilaterally. no wheezes, rales, rhonchi, or retractions Abd: soft, non-tender, non-distended, normal bowel sounds, no rebound or g uarding, no peritoneal signs, nephrostomy tube in place left flank with naila urine draining, some hematuria in his Ruiz bag Musculoskeletal: full range of motion of arms and legs, no tenderness to p alpation. no clubbing, cyanosis, or edema Neurologic: appropriate for age, strength normal Psych: alert and oriented Skin: no petechiae, no lesions, warm and dry Course Vital Signs Vital signs: Vital Signs Temperature 36.8 C 02/24/23 11:43 Pulse 83 02/24/23 11:43 Respiratory Rate 16 02/24/23 11:43 Blood Pressure 133/62 02/24/23 11:43 Pulse Oximetry 97 02/24/23 11:43 Temperature 36.8 C 02/24/23 11:43 Temperature Source Oral 02/24/23 11:43 Pulse 83 02/24/23 11:43 Respiratory Rate 16 02/24/23 11:43 Blood Pressure 133/62 02/24/23 11:43 Pulse Oximetry 97 02/24/23 11:43 Oxygen Delivery Method Nasal Cannula 02/24/23 11:43 Oxygen Flow Rate 4 02/24/23 11:43
[2023-02-24 12:32] VITALS: BP 133/62; PULSE 83; RESP 16; TEMP 36.8; O2SAT 97
[2023-02-24 12:46] LABS: Abs Immature Grans 0.03 10^3/uL (0.0-0.06); Absolute Basophil Count 0.04 10^3/uL (0.0-0.2); Absolute Eosinophil Count 0.25 10^3/uL (0.0-0.7); Absolute Monocyte Count 0.78 10^3/uL (0.1-0.8); Absolute Neutrophil Count 6.03 10^3/uL (1.2-6.7); Basophils % 0.5; HCT 32.5 % (36.0-46.0); HGB 10.3 g/dL (11.2-15.7); Immature Grans % 0.4; Lymphocytes % 15.4; MCH 32.2 pg (27.0-33.0); MCHC 31.7 % (32.0-36.0); MCV 102 fL (80-95); MPV 10.2 fL (8.0-11.0); Monocytes % 9.3; Neutrophils % 71.4; Platelet Count 225 10^3/uL (130-400); RDW 15.5 % (11.7-14.6); RDW-SD 57.6 fL; WBC 8.43 10^3/uL (4.4-10.8)
[2023-02-24 12:57] LABS: Anion Gap 2.7 mmol/L (3-11); BUN 44 mg/dL (7-18); CO2 35.3 mmol/L (21.0-32.0); Calcium 9.8 mg/dL (8.5-10.1); Chloride 100 mmol/L (98-107); Estimated GFR 25.41 (mL/min/1.73m2); Glucose 206 mg/dL (74-106); Potassium 4.6 mmol/L (3.5-5.1); Sodium 138 mmol/L (136-145)
[2023-02-24 13:38] LABS: Bilirubin Negative (Negative); Blood Large (Negative); Clarity Cloudy (Clear); Glucose Negative (Negative); Ketones Negative (Negative); Leukocyte Esterase Large (Negative); Nitrite Positive (Negative); Urobilinogen 0.2 mg/dL (Up to 0.2); pH 6.5 (5-8)
[2023-02-24 13:53] LABS: WBC >50 HPF (0-5)
[2023-02-24 13:54] LABS: Bacteria Many HPF (Negative); C & S Indicated? Yes; Casts Negative LPF (Negative); Crystals Negative HPF (Negative); Epithelial Cells Few HPF (Negative); Mucus Trace (Negative)
[2023-02-24 14:27] VITALS: BP 143/49; PULSE 73; TEMP 36.5; O2SAT 97
== END 2023-02-24 15:01 | disposition home or self-care (01) ==
PROVIDERS: Emergency Provider Emergency Medicine Emergency Medical Services; PCP Nurse Practitioner Adult Health
DX: R10.9 Unspecified abdominal pain (principal); N39.0 Urinary tract infection, site not specified; T83.89XA Other specified complication of genitourinary prosthetic devices, implants and grafts, initial encounter; E11.22 Type 2 diabetes mellitus with diabetic chronic kidney disease; I13.0 Hypertensive heart and chronic kidney disease with heart failure and stage 1 through stage 4 chronic kidney disease, or unspecified chronic kidney disease; N18.9 Chronic kidney disease, unspecified; I50.32 Chronic diastolic (congestive) heart failure; Z79.899 Other long term (current) drug therapy; Z79.4 Long term (current) use of insulin; Z79.01 Long term (current) use of anticoagulants
CPT/HCPCS: 80048; 87077; 99283; 81003; 81015; 85025; 87086; 87186; 99284

== ENCOUNTER 2023-03-05 08:07 | Emergency (ER) | payer MEDICARE, SELFPAY ==
[2023-03-05 08:10] VITALS: BP 89/60; PULSE 61; RESP 20; TEMP 36.6; O2SAT 92
--- NOTE | 2023-03-05 08:15 | RT.EKG_ITS ---
APPROVED REPORT Exam: Resting ECG Reason for Exam: weakness Patient Location: E HR:81 bpm ECG Measurements Heart Rate 81 AXIS MS [id number] P [id number] QRSd 77 QRS -44 QT 285 T 1 QTc 332 Conclusion Atrial fibrillation...V-rate 62- 99, irreg A-activity Inferior infarct, old...Q >35mS, II III aVF
[2023-03-05 09:13] LABS: Abs Immature Grans 0.12 10^3/uL (0.0-0.06); Absolute Basophil Count 0.03 10^3/uL (0.0-0.2); Absolute Monocyte Count 0.41 10^3/uL (0.1-0.8); Basophils % 0.2; Eosinophils % 3.8; HCT 34.3 % (36.0-46.0); HGB 10.9 g/dL (11.2-15.7); Immature Grans % 0.9; Lymphocytes % 6.4; MCH 32.1 pg (27.0-33.0); MCHC 31.8 % (32.0-36.0); MCV 101 fL (80-95); MPV 9.9 fL (8.0-11.0); Neutrophils % 85.7; Platelet Count 339 10^3/uL (130-400); RDW 15.3 % (11.7-14.6); RDW-SD 56.9 fL; WBC 13.83 10^3/uL (4.4-10.8)
[2023-03-05] MEDS: Lactated Ringers 500 ML 1000 ML IV (09:15)
[2023-03-05 09:16] LABS: Absolute Eosinophil Count 0.53 10^3/uL (0.0-0.7); Absolute Lymphocyte Count 0.89 10^3/uL (1.2-3.4); Absolute Neutrophil Count 11.85 10^3/uL (1.2-6.7)
[2023-03-05 09:30] VITALS: BP 128/63
[2023-03-05 09:39] LABS: ALT 14 U/L (14-59); AST 27 U/L (15-37); Albumin 2.4 g/dL (3.4-5.0); Alkaline Phosphatase 89 U/L (46-116); Anion Gap 8.6 mmol/L (3-11); BUN 63 mg/dL (7-18); Bilirubin, Total 0.5 mg/dL (0.2-1.0); CO2 30.4 mmol/L (21.0-32.0); CREATININE 2.6 mg/dL (0.55-1.02); Calcium 9.2 mg/dL (8.5-10.1); Chloride 100 mmol/L (98-107); Estimated GFR 18.55 (mL/min/1.73m2); Glucose 167 mg/dL (74-106); Lipase 24 U/L (16-77); Magnesium 1.8 mg/dL (1.8-2.4); Potassium 3.4 mmol/L (3.5-5.1); Sodium 139 mmol/L (136-145); Total Protein 7.9 g/dL (6.4-8.2)
[2023-03-05 09:45] VITALS: BP 140/90
[2023-03-05 10:15] VITALS: BP 147/61; PULSE 69; RESP 16; O2SAT 100
[2023-03-05 10:18] VITALS: BP 117/62
--- NOTE | 2023-03-05 12:01 | NUR.NOTE ---
Nursing Note:this RN walked with pt in hallway with gait belt, walker and wheel chair and 4LO2. PT was able to walk 9ft and then need a 5 min break before she was able to walk 4ft more. During ambulation pt's O2 sat dropped to 88% on 4L she recovered her O2 quickly after resting in WC. Patient stat she thinks she did pretty good and when asked if her son can help her in her current condition at home she said oh yeah definitely patinet laying on stretcher in lowest position with side rail up call light within reach at this time
--- NOTE | 2023-03-05 14:20 | W.ED.GENAD ---
Discharge Plan Disposition Patient Disposition: Home Condition: Stable Discharge Details Clinical Impression: Generalized weakness, Fall Primary Care Provider: Laverne Sung ED Provider: Kaushal Fitzgerald Home Meds and New Rx's Prescriptions: Continued (DME) 3XL incontinence briefs See Rx Instructions .Route .MEDSUPPLY Qty: 30 2RF Rx Instructions: Uses one nightly at bedtime for urge incontinence acetaminophen [Tylenol Extra Strength] 500 mg tablet 500 mg PO Q6H PRN (DME) BD Eclipse Luer-Timi 3 mL 23 x 1 syringe See Rx Instructions .ROUTE .MEDSUPPLY Qty: 15 0RF Rx Instructions: for use with monthly self administered B12 injections docusate sodium [Colace] 100 mg capsule 100 mg PO BID PRN allopurinol 100 mg tablet 100 mg PO DAILY Qty: 90 3RF Rx Instructions: Gout prevention (DME) Oxygen Tank See Rx Instructions .ROUTE .MEDSUPPLY Qty: 1 0RF Rx Instructions: 2-5L via NC continuous atorvastatin 80 mg tablet 80 mg PO QHS Qty: 90 3RF Rx Instructions: Cholesterol (DME) Wheelchair See Rx Instructions .Route .MEDSUPPLY Qty: 1 0RF Rx Instructions: As directed (DME) pen needle, diabetic [BD Ultra-Fine Mini Pen Needle] 31 gauge x 3/16 needle See Rx Instructions .ROUTE .MEDSUPPLY Qty: 100 6RF Rx Instructions: for insulin administration qid dx E11.22 #360 Refill 3 amlodipine 5 mg tablet 5 mg PO DAILY Qty: 90 3RF Rx Instructions: Blood pressure Eliquis 5 mg tablet 5 mg PO BID Qty: 180 3RF Hold Instructions: Resume on 11/15/22. (DME) FreeStyle Bradley 2 Sensor Kit See Rx Instructions .ROUTE .MEDSUPPLY Qty: 2 11RF Rx Instructions: As directed; on insulin AC & HS for goal A1C 8% sodium chloride 0.9 % (flush) Syringe 10 ml IV BID Rx Instructions: Flush Nephrostomy tube BID bisacodyl [Gentle Laxative (bisacodyl)] 10 mg suppository 10 mg NE DAILY PRN polyethylene glycol 3350 [ClearLax] 17 gram/dose powder 17 g PO DAILY PRN folic acid 1 mg tablet 1 mg PO DAILY cephalexin 500 mg capsule 500 mg PO QID 14 Days Qty: 56 0RF magnesium hydroxide [Dulcolax (magnesium hydroxide)] 400 mg/5 mL suspension 30 ml PO DAILY PRN torsemide 20 mg tablet 20 mg PO DAILY MDD 120mg/24h bisacodyl [Dulcolax (bisacodyl)] 10 mg suppository 10 mg NE ONCE PRN Fleet Enema 19-7 gram/118 mL enema 118 ml NE DAILY PRN ondansetron 4 mg tablet,disintegrating 4 mg PO QD-BID PRN bismuth subsalicylate [Anti-Diarrheal] 262 mg/15 mL suspension 524 mg PO QID Sacch boulardi-Bacill coag-FOS 471 mg capsule PO Discharge Instructions Instructions: Fall Prevention for Older Adults (ED), Weakness (ED) Additional Instructions: Please follow-up with your primary care physician. Call today to arrange timely follow-up. Please contact your primary care physician to arrange follow-up. Return to the ER immediately for any worsening or new concerning symptoms. Referrals: Laverne Sung DOCUMENTATION LIAISON [Primary Care Provider] - Discharge Data Discharge Date/Time-TO BE ENTERED AT DEPARTURE: 03/05/23 15:23 Medical Decision Making 1424 -- 77-year-old female with multiple medical problems, here after slip and fall from chair to the floor with no complaints. Patient notes she was discharged from rehab facility yesterday. She is requesting discharge back to home and notes her son will be able to help care for her. Screening labs were performed: Chronic anemia noted. Chronic kidney disease noted. Patient was able to ambulate with walker with nursing. Patient feels as though she is at her baseline. Plan for discharge. Will attempt to establish contact with patient's son. -- Nursing spoke with patient's son who agrees to assist in care of patient at home. Transportation was arranged. Usual and customary discharge instructions were reviewed. Lab Data Lab results reviewed: Yes I reviewed the patient's lab results. Labs: Laboratory Tests Range/Units 03/05/23 09:07 WBC (4.4-10.8) 10^3/uL 13.83 H RBC (3.93-5.22) 10^6/uL 3.40 L Hgb (11.2-15.7) g/dL 10.9 L Hct (36.0-46.0) % 34.3 L MCV (80-95) fL 101 H MCH (27.0-33.0) pg 32.1 MCHC (32.0-36.0) % 31.8 L RDW (11.7-14.6) % 15.3 H Plt Count (130-400) 10^3/uL 339 MPV (8.0-11.0) fL 9.9 Immature Gran % 0.9 Neutrophils % 85.7 Lymphocytes % 6.4 Monocytes % 3.0 Eosinophils % 3.8 Basophils % 0.2 Nucleated RBC % (0.0-0.3) % 0.0 Absolute Neutrophils (1.2-6.7) 10^3/uL 11.85 H Absolute Lymphocytes (1.2-3.4) 10^3/uL 0.89 L Absolute Monocytes (0.1-0.8) 10^3/uL 0.41 Absolute Eosinophils (0.0-0.7) 10^3/uL 0.53 Absolute Basophils (0.0-0.2) 10^3/uL 0.03 Sodium (136-145) mmol/L 139 Potassium (3.5-5.1) mmol/L 3.4 L Chloride (98-107) mmol/L 100 Carbon Dioxide (21.0-32.0) mmol/L 30.4 Anion Gap (3-11) mmol/L 8.6 BUN (7-18) mg/dL 63 H Creatinine (0.55-1.02) mg/dL 2.6 H Est GFR (CKD-EPI 2020) (mL/min/1.73m2) 18.55 Glucose (74-106) mg/dL 167 H Calcium (8.5-10.1) mg/dL 9.2 Magnesium (1.8-2.4) mg/dL 1.8 Total Bilirubin (0.2-1.0) mg/dL 0.5 AST (15-37) U/L 27 ALT (14-59) U/L 14 Alkaline Phosphatase (46-116) U/L 89 Total Protein (6.4-8.2) g/dL 7.9 Albumin (3.4-5.0) g/dL 2.4 L Lipase (16-77) U/L 24 HPI General Mode of arrival: ambulatory. Date/Time Provider Initiated Documentation: 03/05/23 08:26. Limitations to Documentation: no limitations. Information obtained by: patient. HPI Narrative: 77-year-old female with multiple medical problems, recently discharged from nursing rehab facility to home, slipped out of her chair today to the ground and had trouble getting up. Patient has no complaint at this time. Patient requesting discharge back to home. Related Data Home Medications Medication Instructions Recorded Confirmed acetaminophen 500 mg tablet 500 mg PO Q6H PRN 12/04/19 03/05/23 (Tylenol Extra Strength) syringe with needle 3 mL 23 x 1 #15 ea 11/24/21 02/24/23 (BD Eclipse Luer-Timi) Oxygen #1 ea 12/19/21 02/24/23 docusate sodium 100 mg capsule 100 mg PO BID PRN 02/10/22 03/05/23 (Colace) atorvastatin 80 mg tablet 80 mg PO QHS #90 tabs 05/11/22 03/05/23 3XL incontinence briefs #30 ea 05/30/22 02/24/23 Wheelchair #1 ea 06/08/22 02/24/23 pen needle, diabetic 31 gauge x #100 ea 07/07/22 02/24/23/16 (BD Ultra-Fine Mini Pen Needle) allopurinol 100 mg tablet 100 mg PO DAILY #90 tabs 08/03/22 03/05/23 amlodipine 5 mg tablet 5 mg PO DAILY #90 tabs 08/03/22 03/05/23 apixaban 5 mg tablet (Eliquis) 5 mg PO BID #180 tabs 08/03/22 03/05/23 flash glucose sensor (FreeStyle #2 ea 08/19/22 02/24/23 Bradley 2 Sensor kit) bisacodyl 10 mg rectal suppository 10 mg NE DAILY PRN 02/24/23 03/05/23 (Gentle Laxative (bisacodyl)) cephalexin 500 mg capsule 500 mg PO QID 14 days #56 caps 02/24/23 03/05/23 folic acid 1 mg tablet 1 mg PO DAILY 02/24/23 03/05/23 magnesium hydroxide 400 mg/5 mL 30 ml PO DAILY PRN 02/24/23 03/05/23 oral suspension (Dulcolax (magnesium hydroxide)) polyethylene glycol 3350 17 17 g PO DAILY PRN 02/24/23 03/05/23 gram/dose oral powder (ClearLax) torsemide 20 mg tablet 20 mg PO DAILY 02/24/23 03/05/23 Saccharomyces boulardii-Bacillus cap PO 03/05/23 coagulans-FOS 471 mg capsule bisacodyl 10 mg rectal suppository 10 mg NE ONCE PRN 03/05/23 03/05/23 (Dulcolax (bisacodyl)) bismuth subsalicylate 262 mg/15 mL 524 mg PO QID 03/05/23 03/05/23 oral suspension (Anti-Diarrheal) ondansetron 4 mg disintegrating 4 mg PO QD-BID PRN 03/05/23 03/05/23 tablet sodium chloride 0.9 % (flush) 10 ml IV BID 03/05/23 sodium phosphates 19 gram-7 118 ml NE DAILY PRN 03/05/23 03/05/23 gram/118 mL enema (Fleet Enema) Previous Rx's Medication Instructions Recorded syringe with needle 3 mL 23 x 1 #15 ea 11/24/21 (BD Eclipse Luer-Timi) Oxygen #1 ea 12/19/21 atorvastatin 80 mg tablet 80 mg PO QHS #90 tabs 05/11/22 3XL incontinence briefs #30 ea 05/30/22 Wheelchair #1 ea 06/08/22 pen needle, diabetic 31 gauge x #100 ea 07/07/22/ (BD Ultra-Fine Mini Pen Needle) allopurinol 100 mg tablet 100 mg PO DAILY #90 tabs 08/03/22 amlodipine 5 mg tablet 5 mg PO DAILY #90 tabs 08/03/22 apixaban 5 mg tablet (Eliquis) 5 mg PO BID #180 tabs 08/03/22 flash glucose sensor (FreeStyle #2 ea 08/19/22 Bradley 2 Sensor kit) cephalexin 500 mg capsule 500 mg PO QID 14 days #56 caps 02/24/23 Allergies Allergy/AdvReac Type Severity Reaction Status Date / Time codeine Allergy Severe Swelling/Ed Verified 03/05/23 08:18 warner furosemide [From Lasix] Allergy Severe Swelling/Ed Verified 03/05/23 08:18 warner morphine Allergy Severe Swelling/Ed Verified 03/05/23 08:18 warner peanut Allergy Severe Nausea Verified 03/05/23 08:18 tree nut Allergy Severe Verified 03/05/23 08:18 acetaminophen [From Percocet] Allergy Intermediate ITCHY Verified 03/05/23 08:18 adhesive tape Allergy Intermediate Skin Rash Verified 03/05/23 08:18 oxycodone HCl [From Percocet] Allergy Intermediate ITCHY Verified 03/05/23 08:18 apricot Allergy Unknown Uncoded 03/05/23 08:18 General Stated Complaint: Fall/Non TraumaCriteria GERALDINE: 3 Review of Systems All systems reviewed & are unremarkable except as noted in HPI and below Cardiovascular Cardiovascular: Denies chest pain Respiratory Comments: No change in chronic respiratory symptoms PFSH All Active Problems (Updated 03/05/23 @ 14:25 by Kaushal Fitzgerald MD) Fall (Acute) Generalized weakness (Acute) Closed stable burst fracture of ninth thoracic vertebra (Acute) [facility] [place] Pain & Spine-03/01/23 Acute UTI (Acute) Advance care planning (Acute) Right thyroid nodule (Acute ~11/2022) JOY (acute kidney injury) (Acute) CKD (chronic kidney disease) (Chronic) At high risk for skin breakdown (Acute) Impaired instrumental activities of daily living (Acute) Deficit in activities of daily living (ADL) (Acute) Hyperuricemia (Acute) Bradycardia (Acute) Gout (Chronic) CKD stage 4 due to type 2 diabetes mellitus (Acute) Respiratory failure with hypoxia and hypercapnia (Acute) Obstructive sleep apnea treated with BiPAP (Chronic) CHF (congestive heart failure) (Acute 02/23/14) Preserved EF (10/2020 & 08/2021 ECHO) Obstructive sleep apnea (Chronic 02/23/14) Sleep Med Referral, 04/17/2019-->Very severe YARELY; CPAP ([facility]) with continuous O2, new Panda C-Pap 01/2021 Type II diabetes mellitus (Chronic) Hypertension (Chronic) Hyperlipidemia (Chronic) Atrial fibrillation (Chronic) Apixaban Anemia (Chronic) Pulmonary hypertension (Chronic) Dependence on supplemental oxygen (Chronic) YARELY + Pulm HTN Palliative care status (Chronic) Full code status (Chronic) Chronic low back pain (Chronic 07/24/15) CT-lumbar spine 2019-- Severe multilevel degenerative changes in the lumbar spine resulting in neural foraminal and central spinal canal stenosis. Chronic anticoagulation (Chronic) AF--Apixaban Risk for falls (Chronic) Sedentary lifestyle (Chronic) B12 deficiency (Chronic) Start B12 injections; elevated MCV Chronic respiratory failure with hypercapnia (Chronic) Obesity hypoventilation syndrome (Chronic) Obesity + Severe YARELY + Chronic Hypercapnia Dependent on walker for ambulation (Chronic) Hypomagnesemia (Acute ~07/2021) Mild mitral valve regurgitation (Acute ~08/2021) ECHO Trace tricuspid valve regurgitation (Acute ~08/2021) ECHO Medical History Diverticulosis Knee pain, left Pressure sore on buttocks Trigger finger, right middle finger Injection: 05/04/2022 Right carpal tunnel syndrome Lipoma Restrictive lung disease (~03/2014) PFTs validated 04/04/2014-->see scanned docs Gout attack (~10/2020) R podagra, first attack 10/2020-->treated with colchine, effective Sciatica of right side without back pain RX Medrol Dietary counseling reviewed sodium levels in her food, how to count mg, goal of 1500 mg daily due to CHF Renal calculi Non obstructive per CT Peptic ulcer of duodenum [facility] [place] Path reports upper endoscopy; RX Carafate Female hirsutism Carpal tunnel syndrome, bilateral (12/17/16) Lipoma of arm Heme + stool [facility] [place] Upper GI Endoscopy Peptic Duodenitis (pathology report); repeat hemoccults NEG 11/2019 Folate deficiency Low 12/2018; resolved 05/2019 labs; discontinued 02/05/2020 Iron deficiency EGD 05/23/19 at [facility] [place]; discont supp iron & vit c 02/05/2020; Hgb stable and iron constipating; she will obtain dietarily YARELY (obstructive sleep apnea) Spinal stenosis, lumbar HTN (hypertension) Insulin dependent diabetes mellitus Edentulous H/O rotator cuff tear H/O fracture of nose h/o elbow fx Adult body mass index 50.0-59.9 Surgical History History of total knee arthroplasty bilateral History of total abdominal hysterectomy and bilateral salpingo-oophorectomy (~02/1999) History of shoulder surgery Right shoulder repair - 2004 History of carpal tunnel repair Left- 1998 Right- 2017 Colonoscopy - MAC (08/14/16) Biopsy, Temporal Artery (01/18/15) DR.C YOUNG History of total bilateral knee replacement Family History Mother Heart disease Father Heart disease Lung cancer Brother Heart disease AAA (abdominal aortic aneurysm, ruptured) Brother Obesity Son No problems noted. Daughter Stillborn, abnormal Daughter No problems noted. 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 Pets and animals: Yes Pets and animals: cat(s) Sexually active: No Do you think of yourself as: straight/heterosexual Current gender identity: female What is your relationship status?: How often do you talk on the phone with friends or family?: once per week How often do you get together with friends or relatives?: once per week Panel score (0-1 are the most socially isolated patients): 0 What type of physical activity do you participate in: none and sedentary lifestyle Special jakob needs: No Agree to transfusion: Yes Seatbelt use: always In current or past relationships, have you been: made to feel afraid Do you feel safe at home: Yes Do you feel safe in your relationship?: Yes Additional Social history: [facility] LAI SANTANA 03/05/23 Exam Const General: cooperative and no acute distress [facility] Head: normocephalic and atraumatic Mouth: moist mucous membranes Eyes Conjunctivae: normal conjunctivae Sclera: normal sclerae Resp Auscultation: clear to auscultation bilaterally, no rales, no rhonchi and no wheezes Cardio Rate: regular rate and not tachycardic Rhythm: regular rhythm GI Palpation: soft, not firm, no guarding, no masses, not rigid and nontender Skin General skin exam: no rashes or lesions noted Neuro General: patient alert, patient awake, patient oriented x3 and tone normal Speech: speech normal Motor: other (mild generalized weakness with no focal deficits) Sensory Exam: no sensory deficits noted Psych Appearance: grossly normal Mental Status: mental status grossly normal Speech and Movement: speech and movement normal Course Vital Signs Vital signs: Vital Signs Temperature 36.6 C 03/05/23 08:10 Pulse 61 03/05/23 08:10 Respiratory Rate 20 03/05/23 08:10 Blood Pressure 89/60 L 03/05/23 08:10 Pulse Oximetry 92 03/05/23 08:10 Temperature 36.6 C 03/05/23 08:10 Temperature Source Skin 03/05/23 08:10 Pulse 69 03/05/23 10:15 Respiratory Rate 16 03/05/23 10:15 Respiratory Effort Normal, Non-Labored 03/05/23 10:11 Blood Pressure 117/62 03/05/23 10:18 Blood Pressure Position Sitting 03/05/23 08:10 Pulse Oximetry 100 03/05/23 10:15 Oxygen Delivery Method Nasal Cannula 03/05/23 08:10 Oxygen Flow Rate 2 03/05/23 08:10 Pain Level 9 03/05/23 08:10 Comment pain in buttocks- pre-existing wounds 03/05/23 08:10 Lab/Test Results Lab/Test Results: Laboratory Tests Range/Units 03/05/23 09:07 WBC (4.4-10.8) 10^3/uL 13.83 H RBC (3.93-5.22) 10^6/uL 3.40 L Hgb (11.2-15.7) g/dL 10.9 L Hct (36.0-46.0) % 34.3 L MCV (80-95) fL 101 H MCH (27.0-33.0) pg 32.1 MCHC (32.0-36.0) % 31.8 L RDW (11.7-14.6) % 15.3 H Plt Count (130-400) 10^3/uL 339 MPV (8.0-11.0) fL 9.9 Immature Gran % 0.9 Neutrophils % 85.7 Lymphocytes % 6.4 Monocytes % 3.0 Eosinophils % 3.8 Basophils % 0.2 Nucleated RBC % (0.0-0.3) % 0.0 Absolute Neutrophils (1.2-6.7) 10^3/uL 11.85 H Absolute Lymphocytes (1.2-3.4) 10^3/uL 0.89 L Absolute Monocytes (0.1-0.8) 10^3/uL 0.41 Absolute Eosinophils (0.0-0.7) 10^3/uL 0.53 Absolute Basophils (0.0-0.2) 10^3/uL 0.03 Sodium (136-145) mmol/L 139 Potassium (3.5-5.1) mmol/L 3.4 L Chloride (98-107) mmol/L 100 Carbon Dioxide (21.0-32.0) mmol/L 30.4 Anion Gap (3-11) mmol/L 8.6 BUN (7-18) mg/dL 63 H Creatinine (0.55-1.02) mg/dL 2.6 H Est GFR (CKD-EPI 2020) (mL/min/1.73m2) 18.55 Glucose (74-106) mg/dL 167 H Calcium (8.5-10.1) mg/dL 9.2 Magnesium (1.8-2.4) mg/dL 1.8 Total Bilirubin (0.2-1.0) mg/dL 0.5 AST (15-37) U/L 27 ALT (14-59) U/L 14 Alkaline Phosphatase (46-116) U/L 89 Total Protein (6.4-8.2) g/dL 7.9 Albumin (3.4-5.0) g/dL 2.4 L Lipase (16-77) U/L 24
--- NOTE | 2023-03-06 07:43 | NUR.NOTE ---
Addendum entered by Isabel Sharp 03/10/23 09:54: There is an EKG that is not matched to an order. I placed another order to match it. Will ask Dr. Fitzgerald if he wants the EKG before matching them. If he does I will match and if not, will delete the EKG and cancel the order. Original Note: Accessed chart to determine orders for EKG and to determine whether or not one needs to be cancelled. Order cancelled. NO EKG in [facility]. Nursing Note:
== END 2023-03-05 15:23 | disposition home or self-care (01) ==
PROVIDERS: Emergency Provider Student in an Organized Health Care Education/Training Program; PCP Nurse Practitioner Adult Health
DX: R53.1 Weakness (principal); E11.22 Type 2 diabetes mellitus with diabetic chronic kidney disease; N18.4 Chronic kidney disease, stage 4 (severe); D50.9 Iron deficiency anemia, unspecified; W19.XXXA Unspecified fall, initial encounter
CPT/HCPCS: 36415; 80053; 83690; 93005; 96360; 99284; 83735; 85025; 93010; 99283

== ENCOUNTER 2023-03-11 08:39 | Inpatient (IN) | payer MEDICARE, SELFPAY ==
[2023-03-11] VITALS (62 sets, daily range): BP systolic 94–174; BP diastolic 32–78; PULSE 55–99; RESP 10–29; TEMP 36.3–36.6; O2SAT 84–100
--- NOTE | 2023-03-11 08:30 | DI.RAD_ITS ---
Exam(s) XR PELVIS AP XR FEMUR RT EXAM: XR FEMUR RT CLINICAL HISTORY: Fall, right hip pain. TECHNIQUE: 2D digital imaging was performed. AP and lateral views. COMPARISON: CR,XR XR TIB/FIB RT from 05/23/2022 CR,XR XR KNEE RT 2V AP,LAT from 05/23/2022 CR XR PELVIS AP from 03/11/2023 FINDINGS: Exam limited by overlying clothing and patient body habitus.. BONES: No acute fracture is present. No bony destructive lesion is seen. Prominent enthesophytes at the iliac wings. JOINTS: Right knee prosthesis appears unchanged. Joint effusion, similar to prior.. Spurring at the acetabulum. SOFT TISSUE: Chronic calcific densities around the left knee. Vascular calcifications. Right ureter al stent. IMPRESSION: No acute abnormality. DATA REPOSITORY: RADIATION DOSE DELIVERED:
--- NOTE | 2023-03-11 08:46 | ED.GENADUL_ITS ---
Discharge Plan Disposition Patient Disposition: Admit to [facility] Condition: Stable Discharge Details Chief Complaint: Fall/Non TraumaCriteria Clinical Impression: JOY (acute kidney injury), CHF (congestive heart failure) Admit Date/Time: 03/11/23 18:53 Admit Provider: Sid Hartmann Attending Provider: Sid Hartmann Primary Care Provider: Laverne Sung ED Provider: Myah Victor Medical Decision Making <Teresa Johnson NP - Last Filed: 03/11/23 15:36> 77-year-old female with chief complaint of fall and right hip pain. Patient lives at home with her son was recently discharged from [facility] rehab earlier this month. EMS reports that they have gone out to eat because of the last couple weeks for falls. Patient arrives alert and oriented at baseline. She denies any. She reports that she was trying to sit in a chair and missed landing on her bottom. She was unable to get up after the fall. EMS reports that she is moderate assist. She is on 4 L nasal cannula which is what she normally is on at home. She denies any dizziness lightheadedness shortness of breath or chest pain. She does have a past medical history of CHF, atrial fibrillation she is on apixaban 5 mg twice daily, hypercholesterol, hypertension chronic kidney disease stage IV due to diabetes, gout sciatica, renal calculi due to sleep apnea insulin-dependent diabetes. Obesity. She does present with a Ruiz in place but noticed some dark urine. She does have a additional surgical history of total knee arthroplasty, hysterectomy oophorectomy, temporal artery biopsy bilateral knee replacement. Labs ordered including CBC CMP magnesium, urinalysis as she was recently diagnosed with acute UTI on February 24. 1110: Spoke with Scarlett Burk with urology department regarding patient case and details, she recommends a ultrasound to evaluate nephrostomy tube and placement if this is abnormal or there is hydronephrosis and CT. Ultrasound ordered. Patient is getting 500 cc normal saline without difficulty, she is sleepy, VBG ordered. Blood pressure slightly improved is 100 systolic. VBG CO2 is 62, ph is 7.24, O2 decreased to 2L nasal cannula. Blood cultures ordered and rocephin IVPB 1 gm for UTI, patient recently finished 14 days of Cephalexin. 1131: RT here at BS, patient states she did not wear her CPAP machine last night for unknown reason, awaiting DI. Unable to obtain 2nd set of BC, LR ordered at 125ml/hr, BP 108/48 with a MAP of 67, [place] CT [place] [facility] [place], will conider transfer versus admission based on capacity. 1403: Spoke with radiologist regarding CT result she reports that there is a contained hyperdense area which could represent a hematoma in the left kidney, she reports that the stent seems to be in place there are some air in the collecting system. There is also a kidney stone in the upper pole. Will consult with urology here and also urology [place] [facility] [place] for admission if needed. 1408: Spoke with Dr. Bhatti who was able to personally view the CT who states nilesh t he doesn't think there is anything that requires IR or surgical intervention at this time. 1411: Hospitalist paged, they have no capacity for Med surg admission until 7pm, will hold patient down here and plan to sign out to oncoming provider Myah victor NP pending re-eval and further care. Echocardiogram ordered by oncoming provider, they are at bedside at this time. This text was generated using Tappr dictation system, please disregard any oddities of phrase or misspellings. Medical Records Medical records reviewed: Yes I reviewed the patient's medical records. Imaging Data Radiologic Study: Imaging: Ultrasound Radiologist's impression: FINDINGS: Renal size in cm: Right: 8.3 left: 10.2 Echogenicity: Question of mildly increased renal echogenicity which could indicate medical renal disease. Hydronephrosis: No Cyst or mass: 9 millimeters cyst mid right kidney. Complex cystic mass upper pole left kidney 3.9 cm. This was not visible on prior CT. It could be a focal collection related to placement of nephrostomy tube. Follow-up recommended. Nephrolithiasis: Multiple echogenic foci in the left kidney which could indicate stones and or air. The nephrostomy tube is noted. It projects in the region of the renal pelvis. Bladder: Empty. IMPRESSION: Left nephrostomy tube. No visible hydronephrosis. Echogenic foci in left kidney could represent multiple stones and or air related to nephrostomy tube. Complex cystic area seen upper pole left kidney. This was not seen on prior CT. The findings could potentially be related to placement of nephrostomy tube. Follow-up recommended. Findings called to SAMMIE Hunter provider. Radiologic Study #2: Imaging: CT Scan Radiologist's impression: CHEST: Exam limited by motion and patient body habitus as well as patient arm positioning. Tracheobronchial tree: Patent where visualized. Pulmonary parenchyma: Difficult to evaluate due to motion. bilateral ground- glass opacities, similar to prior. Pleura: No effusion or pneumothorax. Lymph nodes: Within normal limits. Aorta: Thoracic portion non-dilated. Heart: Enlarged. Mild to moderate coronary artery calcifications. No pericardial effusion. Bones: Degenerative changes. No lytic or blastic lesions.No compression fractures. Soft tissues: Calcification again noted in right lobe of the thyroid. ABDOMEN and PELVIS: Liver: Somewhat obscured by streak artifact. Normal density. No measurable mass. Gallbladder and biliary tract: No evidence of stones or wall thickening. No biliary dilatation. Pancreas: Normal density, no abnormal calcifications or inflammatory process. Spleen: Normal. Kidneys: Left nephrostomy tube with pigtail in renal pelvis. Left renal stent with upper pigtail in renal pelvis and lower pigtail in urinary bladder. Air seen within the left renal collecting system. Rounded area of increased attenuation in the upper pole of the right kidney may represent focal hematoma. No perinephric collection. No hydronephrosis. Small stone posterior upper pole of the left kidney. Small stone lower pole right kidney. Adrenal glands: No masses seen. Aorta: Abdominal portion non-dilated. Lymph nodes: Within normal limits. Soft tissues: Dehiscence of the anterior abdominal wall. No change from prior. Bladder: Nearly empty. Unremarkable. Bowel: No obstruction or bowel wall thickening. mild diverticulosis. No evidence of diverticulitis. No evidence of appendicitis. Peritoneal cavity: No ascites. No focal collection. No mesenteric inflammatory response. Bones: degenerative changes in the spine and hips. No evidence of fracture. Reproductive organs: Status post hysterectomy. IMPRESSION: Chest CT: Limited evaluation due to motion. Bilateral ground-glass opacities, similar to prior. Abdomen pelvic CT left upper ostomy tube and left ureteral stents are in place. There is no evidence of hydronephrosis. Air and left collecting system related to nephrostomy tube. Rounded area of increased attenuation in the upper pole of the left kidney may represent a focal hematoma. This is seen as a rounded complex area on the ultrasound performed earlier the same day. Lab Data Lab results reviewed: Yes I reviewed the patient's lab results. Labs: 03/11/23 10:57 Blood Blood Culture - Pending 03/11/23 10:57 Blood Blood Culture - Pending 03/11/23 10:31 Urine - Reflex from Ua Urine Culture - Pending Laboratory Tests Range/Units 03/11/23 03/11/23 03/11/23 09:01 09:50 10:31 WBC (4.4-10.8) 10^3/uL 10.30 RBC (3.93-5.22) 10^6/uL 3.20 L Hgb (11.2-15.7) g/dL 10.2 L Hct (36.0-46.0) % 33.1 L MCV (80-95) fL 103 H MCH (27.0-33.0) pg 31.9 MCHC (32.0-36.0) % 30.8 L RDW (11.7-14.6) % 15.9 H Plt Count (130-400) 10^3/uL 401 H MPV (8.0-11.0) fL 9.7 Immature Gran % 0.9 Neutrophils % 79.4 Lymphocytes % 7.5 Monocytes % 4.3 Eosinophils % 7.7 Basophils % 0.2 Nucleated RBC % (0.0-0.3) % 0.0 Absolute Neutrophils (1.2-6.7) 10^3/uL 8.19 H Absolute Lymphocytes (1.2-3.4) 10^3/uL 0.77 L Absolute Monocytes (0.1-0.8) 10^3/uL 0.44 Absolute Eosinophils (0.0-0.7) 10^3/uL 0.79 H Absolute Basophils (0.0-0.2) 10^3/uL 0.02 PT (9.1-11.1) sec 11.7 H INR (0.9-1.1) 1.2 H APTT (23.6-32.8) sec 31.4 Sodium (136-145) mmol/L 137 Potassium (3.5-5.1) mmol/L 3.9 Chloride (98-107) mmol/L 100 Carbon Dioxide (21.0-32.0) mmol/L 28.7 Anion Gap (3-11) mmol/L 8.3 BUN (7-18) mg/dL 84 H* Creatinine (0.55-1.02) mg/dL 3.8 H* Est GFR (CKD-EPI 2020) (mL/min/1.73m2) 11.76 Glucose (74-106) mg/dL 156 H Calcium (8.5-10.1) mg/dL 9.0 Magnesium (1.8-2.4) mg/dL 1.8 Total Bilirubin (0.2-1.0) mg/dL 0.4 AST (15-37) U/L 15 ALT (14-59) U/L 15 Alkaline Phosphatase (46-116) U/L 81 Total Protein (6.4-8.2) g/dL 7.5 Albumin (3.4-5.0) g/dL 2.4 L Urine Color (Yellow) Yellow Urine Clarity (Clear) Turbid Urine pH (5-8) 5.5 Ur Specific [place] (1.005-1.025) 1.020 Urine Protein (Negative) mg/dL >=300 H Urine Ketones (Negative) mg/dL Negative Urine Blood (Negative) Large H Urine Nitrite (Negative) Negative Urine Bilirubin (Negative) Negative Urine Urobilinogen (Up to 0.2) mg/dL 0.2 Ur Leukocyte Esterase (Negative) Large H Urine RBC (0-2) HPF >50 H Urine WBC (0-5) HPF >50 H Ur Epithelial Cells (Negative) HPF Negative Urine Crystals (Negative) HPF Negative Urine Bacteria (Negative) HPF Many Urine Casts (Negative) LPF Negative Urine Mucus (Negative) Heavy Urine Other (Negative) Negative Ur Culture Indicated? Yes Urine Glucose (Negative) mg/dL Negative Add-On Test Request DONE <Myah Victor NP - Last Filed: 03/11/23 21:37> 77-year-old female with chief complaint of fall and right hip pain. Patient lives at home with her son was recently discharged from [facility]hab earlier this month. EMS reports that they have gone out to eat because of the last couple weeks for falls. Patient arrives alert and oriented at baseline. She denies any. She reports that she was trying to sit in a chair and missed landing on her bottom. She was unable to get up after the fall. EMS reports that she is moderate assist. She is on 4 L nasal cannula which is what she normally is on at home. She denies any dizziness lightheadedness shortness of breath or chest pain. She does have a past medical history of CHF, atrial fibrillation she is on apixaban 5 mg twice daily, hypercholesterol, hypertension chronic kidney disease stage IV due to diabetes, gout sciatica, renal calculi due to sleep apnea insulin-dependent diabetes. Obesity. She does present with a Ruiz in place but noticed some dark urine. She does have a additional surgical history of total knee arthroplasty, hysterectomy oophorectomy, temporal artery biopsy bilateral knee replacement. Labs ordered including CBC CMP magnesium, urinalysis as she was recently diagnosed with acute UTI on February 24. 1110: Spoke with Scareltt Burk with urology department regarding patient case and details, she recommends a ultrasound to evaluate nephrostomy tube and placement if this is abnormal or there is hydronephrosis and CT. Ultrasound ordered. Patient is getting 500 cc normal saline without difficulty, she is sleepy, VBG ordered. Blood pressure slightly improved is 100 systolic. VBG CO2 is 62, ph is 7.24, O2 decreased to 2L nasal cannula. Blood cultures ordered and rocephin IVPB 1 gm for UTI, patient recently finished 14 days of Cephalexin. 1131: RT here at , patient states she did not wear her CPAP machine last night for unknown reason, awaiting DI. Unable to obtain 2nd set of BC, LR ordered at 125ml/hr, BP 108/48 with a MAP of 67, [place] CT [place] [facility] [place], will conider transfer versus admission based on capacity. 1403: Spoke with radiologist regarding CT result she reports that there is a contained hyperdense area which could represent a hematoma in the left kidney, she reports that the stent seems to be in place there are some air in the collecting system. There is also a kidney stone in the upper pole. Will consult with urology here and also urology [place] [facility] [place] for admission if needed. 1408: Spoke with Dr. Bhatti who was able to personally view the CT who states that he doesn't think there is anything that requires IR or surgical intervention at this time. 1411: Hospitalist paged, they have no capacity for Med surg admission until 7pm, will hold patient down here and plan to sign out to oncoming provider Myah victor [employer] pending re-eval and further care. Echocardiogram ordered by oncoming provider, they are at bedside at this time. This text was generated using Tappr dictation system, please disregard any oddities of phrase or misspellings. Amended report and care of patient received. Chart is reviewed. Physical exam is consistent with fluid overload although she does not report increased shortness of breath or edema. She has diuresed approximately 400 cc from the torsemide. Echocardiogram limited was performed and reviewed and EF stable at 55% with no acute wall motion abnormality. Did discuss discharge versus admission and patient is agreeable to and admission for diuresis and further monitoring but would not want to be readmitted to a rehabilitation center and is only interested in discharging to home. She will be admitted under hospitalist services for further management and evaluation HPI <Teresa Johnson NP - Last Filed: 03/11/23 15:36> General Mode of arrival: EMS . Date/Time Provider Initiated Documentation: 03/11/23 08:42 . Limitations to Documentation: no limitations . Information obtained by: patient, EMS, RN notes reviewed and old records reviewed . HPI Narrative: 77-year-old female with chief complaint of fall and right hip pain. Patient lives at home with her son was recently discharged from [facility] earlier this month. EMS reports that they have gone out to eat because of the last couple weeks for falls. Patient arrives alert and oriented at baseline. She denies any. She reports that she was trying to sit in a chair and missed landing on her bottom. She was unable to get up after the fall. EMS reports that she is moderate assist. She is on 4 L nasal cannula which is what she normally is on at home. She denies any dizziness lightheadedness shortness of breath or chest pain. She does have a past medical history of CHF, atrial fibrillation she is on apixaban 5 mg twice daily, hypercholesterol, hypertension chronic kidney disease stage IV due to diabetes, gout sciatica, renal calculi due to sleep apnea insulin-dependent diabetes. Obesity. She does present with a Ruiz in place but noticed some dark urine. She does have a additional surgical history of total knee arthroplasty, hysterectomy oophorectomy, temporal artery biopsy bilateral knee replacement. Related Data Home Medications Medication Instructions Recorded Confirmed acetaminophen 500 mg tablet 500 mg PO Q6H PRN 12/04/19 03/11/23 (Tylenol Extra Strength) syringe with needle 3 mL 23 x 1 #15 ea 11/24/21 03/11/23 (BD Eclipse Luer-Timi) Oxygen #1 ea 12/19/21 03/11/23 docusate sodium 100 mg capsule 100 mg PO BID PRN 02/10/22 03/11/23 (Colace) atorvastatin 80 mg tablet 80 mg PO QHS #90 tabs 05/11/22 03/11/23 3XL incontinence briefs #30 ea 05/30/22 03/11/23 Wheelchair #1 ea 06/08/22 03/11/23 pen needle, diabetic 31 gauge x #100 ea 07/07/22 03/11/23 3/16 (BD Ultra-Fine Mini Pen Needle) allopurinol 100 mg tablet 100 mg PO DAILY #90 tabs 08/03/22 03/11/23 amlodipine 5 mg tablet 5 mg PO DAILY #90 tabs 08/03/22 03/11/23 apixaban 5 mg tablet (Eliquis) 5 mg PO BID #180 tabs 08/03/22 03/11/23 flash glucose sensor (FreeStyle #2 ea 08/19/22 03/11/23 Bradley 2 Sensor kit) folic acid 1 mg tablet 1 mg PO DAILY 02/24/23 03/11/23 magnesium hydroxide 400 mg/5 mL 30 ml PO DAILY PRN 02/24/23 03/11/23 oral suspension (Dulcolax (magnesium hydroxide)) polyethylene glycol 3350 17 17 g PO DAILY PRN 02/24/23 03/11/23 gram/dose oral powder (ClearLax) torsemide 20 mg tablet 20 mg PO DAILY 02/24/23 03/11/23 Saccharomyces boulardii-Bacillus 1 cap PO DAILY 03/05/23 03/11/23 coagulans-FOS 471 mg capsule bismuth subsalicylate 262 mg/15 mL 524 mg PO QID 03/05/23 03/11/23 oral suspension (Anti-Diarrheal) ondansetron 4 mg disintegrating 4 mg PO QD-BID PRN 03/05/23 03/11/23 tablet sodium chloride 0.9 % (flush) 10 ml IV BID 03/05/23 03/11/23 Previous Rx's Medication Instructions Recorded syringe with needle 3 mL 23 x 1 #15 11/24/21 (BD Eclipse Luer-Timi) Oxygen #1 ea 12/19/21 atorvastatin 80 mg tablet 80 mg PO QHS #90 tabs 05/11/22 3XL incontinence briefs #30 ea 05/30/22 Wheelchair #1 ea 06/08/22 pen needle, diabetic 31 gauge x #100 ea 07/07/22/16 (BD Ultra-Fine Mini Pen Needle) allopurinol 100 mg tablet 100 mg PO DAILY #90 tabs 08/03/22 amlodipine 5 mg tablet 5 mg PO DAILY #90 tabs 08/03/22 apixaban 5 mg tablet (Eliquis) 5 mg PO BID #180 tabs 08/03/22 flash glucose sensor (FreeStyle #2 ea 08/19/22 Bradley 2 Sensor kit) Allergies Allergy/AdvReac Type Severity Reaction Status Date / Time codeine Allergy Severe Swelling/Ed Verified 03/11/23 08:50 warner furosemide [From Lasix] Allergy Severe Swelling/Ed Verified 03/11/23 08:50 warner morphine Allergy Severe Swelling/Ed Verified 03/11/23 08:50 warner peanut Allergy Severe Nausea Verified 03/11/23 08:50 tree nut Allergy Severe Verified 03/11/23 08:50 acetaminophen [From Percocet] Allergy Intermediate ITCHY Verified 03/11/23 08:50 adhesive tape Allergy Intermediate Skin Rash Verified 03/11/23 08:50 oxycodone HCl [From Percocet] Allergy Intermediate ITCHY Verified 03/11/23 08:50 apricot Allergy Unknown Uncoded 03/11/23 08:50 General GERALDINE: 3 Review of Systems <Teresa Johnson NP - Last Filed: 03/11/23 15:36> All systems reviewed & are unremarkable except as noted in HPI and below Constitutional Constitutional: Reports as per HPI, Denies fever(s), Reports frequent falls, Reports lethargy and Reports weakness ENT Ears, Nose, Mouth, and Throat: Denies neck pain Cardiovascular Cardiovascular: Denies chest pain Musculoskeletal Musculoskeletal: Reports as per HPI, Reports arthralgias and Denies neck pain Neurologic Neurologic: Reports frequent falls and Reports weakness PFSH <Teresa Johnson NP - Last Filed: 03/11/23 15:36> All Active Problems (Updated 03/11/23 @ 21:37 by Myah Victor NP) Fall (Acute) Generalized weakness (Acute) Closed stable burst fracture of ninth thoracic vertebra (Acute) [facility] [place] [facility] [place] Acute UTI (Acute) Advance care planning (Acute) Right thyroid nodule (Acute ~11/2022) JOY (acute kidney injury) (Acute) CKD (chronic kidney disease) (Chronic) At high risk for skin breakdown (Acute) Impaired instrumental activities of daily living (Acute) Deficit in activities of daily living (ADL) (Acute) Hyperuricemia (Acute) Bradycardia (Acute) Gout (Chronic) CKD stage 4 due to type 2 diabetes mellitus (Acute) Respiratory failure with hypoxia and hypercapnia (Acute) Obstructive sleep apnea treated with BiPAP (Chronic) CHF (congestive heart failure) (Acute 02/23/14) Preserved EF (10/2020 & 08/2021 ECHO) Obstructive sleep apnea (Chronic 02/23/14) Sleep Med Referral, 04/17/2019-->Very severe YARELY; CPAP ([facility]) with continuous O2, new Panda C-Pap 01/2021 Type II diabetes mellitus (Chronic) Hypertension (Chronic) Hyperlipidemia (Chronic) Atrial fibrillation (Chronic) Apixaban Anemia (Chronic) Pulmonary hypertension (Chronic) Dependence on supplemental oxygen (Chronic) YARELY + Pulm HTN Palliative care status (Chronic) Full code status (Chronic) Chronic low back pain (Chronic 07/24/15) CT-lumbar spine 2019-- Severe multilevel degenerative changes in the lumbar spine resulting in neural foraminal and central spinal canal stenosis. Chronic anticoagulation (Chronic) AF--Apixaban Risk for falls (Chronic) Sedentary lifestyle (Chronic) B12 deficiency (Chronic) Start B12 injections; elevated MCV Chronic respiratory failure with hypercapnia (Chronic) Obesity hypoventilation syndrome (Chronic) Obesity + Severe YARELY + Chronic Hypercapnia Dependent on walker for ambulation (Chronic) Hypomagnesemia (Acute ~07/2021) Mild mitral valve regurgitation (Acute ~08/2021) ECHO Trace tricuspid valve regurgitation (Acute ~08/2021) ECHO Medical History Diverticulosis Knee pain, left Pressure sore on buttocks Trigger finger, right middle finger Injection: 05/04/2022 Right carpal tunnel syndrome Lipoma Restrictive lung disease (~03/2014) PFTs validated 04/04/2014-->see scanned docs Gout attack (~10/2020) R podagra, first attack 10/2020-->treated with colchine, effective Sciatica of right side without back pain RX Medrol Dietary counseling reviewed sodium levels in her food, how to count mg, goal of 1500 mg daily due to CHF Renal calculi Non obstructive per CT Peptic ulcer of duodenum [facility] [place] reports upper endoscopy; RX Carafate Female hirsutism Carpal tunnel syndrome, bilateral (12/17/16) Lipoma of arm Heme + stool [facility] [place] Upper GI Endoscopy Peptic Duodenitis (pathology report); repeat hemoccults NEG 11/2019 Folate deficiency Low 12/2018; resolved 05/2019 labs; discontinued 02/05/2020 Iron deficiency E[place] 05/23/19 [place] [facility] [place]; discont supp iron & vit c 02/05/2020; Hgb stable and iron constipating; she will obtain dietarily YARELY (obstructive sleep apnea) Spinal stenosis, lumbar HTN (hypertension) Insulin dependent diabetes mellitus Edentulous H/O rotator cuff tear H/O fracture of nose h/o elbow fx Adult body mass index 50.0-59.9 Surgical History History of total knee arthroplasty bilateral History of total abdominal hysterectomy and bilateral salpingo-oophorectomy (~02/1999) History of shoulder surgery Right shoulder repair - 2004 History of carpal tunnel repair Left- 1998 Right- 2017 Colonoscopy - MAC (08/14/16) Biopsy, Temporal Artery (01/18/15) DR.C YOUNG History of total bilateral knee replacement Family History Mother Heart disease Father Heart disease Lung cancer Brother Heart disease AAA (abdominal aortic aneurysm, ruptured) Brother Obesity Son No problems noted. Daughter Stillborn, abnormal Daughter No problems noted. Social History Smoking/Tobacco Use Status: Never Second Hand Exposure: Yes Smoking risk assessment performed?: Yes Alcohol Intake: former Details: never drank heavily but her husbands did Drug use: Never Substance use type: does not use Adopted: No Caregiver/Support person: Yes Foster care: No Household members: children Housing: house Number of Children: 2 number of grandchildren: 8 Communication Needs: Corrective Lenses Education Level: middle school Do you need help understanding health information?: Always current occupation: Retired- [employer] Pets and animals: Yes Pets and animals: cat(s) Sexually active: No Do you think of yourself as: straight/heterosexual Current gender identity: female What is your relationship status?: How often do you talk on the phone with friends or family?: once per week How often do you get together with friends or relatives?: once per week Panel score (0-1 are the most socially isolated patients): 0 What type of physical activity do you participate in: none and sedentary lifestyle Special jakob needs: No Agree to transfusion: Yes Seatbelt use: always In current or past relationships, have you been: made to feel afraid Do you feel safe at home: Yes Do you feel safe in your relationship?: Yes Additional [facility] history: [facility] LAI SANTANA 03/05/23 Exam <Teresa Johnson NP - Last Filed: 03/11/23 15:36> Narrative Exam Narrative: Constitutional: Alert and oriented x3. Appears stated age. Obese body habitus. Head: Normocephalic, no trauma. Eyes: Pupils PERRL, Red reflex noted, EOM's intact. Eyelids symmetrical without lesions, discharge, or swelling. ENT: Bilateral TM's WNL, External ear normal to inspection, no mastoid TTP, swelling, or erythema, Nasal turbinates WNL, no nasal discharge. Normal dentition, Posterior pharynx WNL, no exudate. Chest: RRR, Normal S1, S2, distal pulses intact. She is present with slightly soft blood pressure with a systolic 95/49. Resp: Lungs diminished to auscultation bilaterally Abdomen: Soft, non-distended, Normoactive bowel sounds all 4 quads. Does have a nephrostomy tube to her left flank which appears to be draining dark yellow urine. Approximately 100 cc in the output bag. Musculoskeletal: Unable to assess gait, 5/5 strength to all four extremities. Skin: No suspicious rashes or lesions. Capillary refill less than 2 sec. Neurologic: Cranial nerves II-XII intact. Alert and oriented x 3. Motor: No deficits noted. Sensory: Intact bilaterally all 4 extremities. Generalized weakness noted. Hematologic/Lymphatic: No ecchymosis, no lymphadenopathy. Sign Out <Teresa Johnson NP - Last Filed: 03/11/23 15:36> Sign Out Data: Sign Out Comment: Pending Echocardiogram, re-eval and possible admission. Last updated by Teresa Johnson NP at 03/11/23 15:18
[2023-03-11 09:14] LABS: Lab Add On Test DONE
[2023-03-11 10:00] LABS: Abs Immature Grans 0.09 10^3/uL (0.0-0.06); Absolute Basophil Count 0.02 10^3/uL (0.0-0.2); Absolute Eosinophil Count 0.79 10^3/uL (0.0-0.7); Absolute Lymphocyte Count 0.77 10^3/uL (1.2-3.4); Absolute Monocyte Count 0.44 10^3/uL (0.1-0.8); Absolute Neutrophil Count 8.19 10^3/uL (1.2-6.7); Basophils % 0.2; Eosinophils % 7.7; HCT 33.1 % (36.0-46.0); HGB 10.2 g/dL (11.2-15.7); Immature Grans % 0.9; Lymphocytes % 7.5; MCH 31.9 pg (27.0-33.0); MCHC 30.8 % (32.0-36.0); MCV 103 fL (80-95); MPV 9.7 fL (8.0-11.0); Monocytes % 4.3; Neutrophils % 79.4; Platelet Count 401 10^3/uL (130-400); RDW 15.9 % (11.7-14.6); RDW-SD 60.6 fL
[2023-03-11 10:14] LABS: INR 1.2 (0.9-1.1); PTT Activated 31.4 sec (23.6-32.8); Prothrombin Time 11.7 sec (9.1-11.1)
[2023-03-11 10:20] LABS: ALT 15 U/L (14-59); AST 15 U/L (15-37); Albumin 2.4 g/dL (3.4-5.0); Alkaline Phosphatase 81 U/L (46-116); Anion Gap 8.3 mmol/L (3-11); Bilirubin, Total 0.4 mg/dL (0.2-1.0); CO2 28.7 mmol/L (21.0-32.0); Chloride 100 mmol/L (98-107); Estimated GFR 11.76 (mL/min/1.73m2); Glucose 156 mg/dL (74-106); Magnesium 1.8 mg/dL (1.8-2.4); Potassium 3.9 mmol/L (3.5-5.1); Sodium 137 mmol/L (136-145); Total Protein 7.5 g/dL (6.4-8.2)
[2023-03-11 10:21] LABS: BUN 84 mg/dL (7-18); CREATININE 3.8 mg/dL (0.55-1.02)
[2023-03-11] MEDS: Normal Saline 500 ML IV (10:30)
[2023-03-11 10:40] LABS: Bilirubin Negative (Negative); Blood Large (Negative); Clarity Turbid (Clear); Glucose Negative (Negative); Ketones Negative (Negative); Leukocyte Esterase Large (Negative); Nitrite Negative (Negative); Urobilinogen 0.2 mg/dL (Up to 0.2); pH 5.5 (5-8)
[2023-03-11 10:45] LABS: Bacteria Many HPF (Negative); Casts Negative LPF (Negative); Crystals Negative HPF (Negative); Epithelial Cells Negative HPF (Negative); Mucus Heavy (Negative); Other Cells Negative (Negative); RBC >50 HPF (0-2); WBC >50 HPF (0-5)
[2023-03-11 10:46] LABS: C & S Indicated? Yes
--- NOTE | 2023-03-11 11:00 | DI.US_ITS ---
Exam(s) US RENAL EXAM: US RENAL CLINICAL HISTORY: R/O Hydronephrosis, Eval nephrostomy. TECHNIQUE: Mancia scale, color and spectral Doppler were used. COMPARISON: CT ABD PELVIS WO CONTRAST from 10/26/[address] CHEST/ABD/PEL WO from 11/14/[address] ABDOMEN PELVIS WO from 12/01/2022 CR XR PELVIS AP from 03/11/2023 FINDINGS: Renal size in cm: Right: 8.3 left: 10.2 Echogenicity: Question of mildly increased renal echogenicity which could indicate medical renal dise ase. Hydronephrosis: No Cyst or mass: 9 millimeters cyst mid right kidney. Complex cystic mass upper pole left kidney 3.9 c m. This was not visible on prior CT. It could be a focal collection related to placement of nephros sam tube. Follow-up recommended. Nephrolithiasis: Multiple echogenic foci in the left kidney which could indicate stones and or air. The nephrostomy tube is noted. It projects in the region of the renal pelvis. Bladder: Empty. IMPRESSION: Left nephrostomy tube. No visible hydronephrosis. Echogenic foci in left kidney could represent multiple stones and or air related to nephrostomy tube. Complex cystic area seen upper pole left kidney. This was not seen on prior CT. The findings could potentially be related to placement of nephrostomy tube. Follow-up recommended. Findings called to Teresa Johnson, ER provider. DATA REPOSITORY:
[2023-03-11 11:18] LABS: BE (Venous) -1 mmol/L (-2-3); HCO3 (Venous) 27 mmol/L (23-28); O2 Sat (Venous) 77 %; TCO2 (Venous) 26 mmol/L (24-29); pH (Venous) 7.24 (7.31-7.41); pO2 (Venous) 46 mmHg
[2023-03-11 11:20] LABS: pCO2 (Venous) 62 mmHg (41-51)
[2023-03-11 11:35] LABS: Lab Add On Test DONE
--- NOTE | 2023-03-11 12:00 | DI.CT_ITS ---
Exam(s) CT CHEST/ABD/PEL WO EXAM: CT CHEST/ABD/PEL WO CLINICAL HISTORY: Hypoxia, hx CHF. TECHNIQUE: Imaging Protocol: Axial computed tomography images with coronal and sagittal reformatted images were created and reviewed CONTRAST MATERIAL: Noncontrast Oral: / no COMPARISON: CR XR PORTABLE CHEST AP from 07/23/[address] CHEST/ABD/PEL WO from 11/14/[address] ABDOMEN PELVIS WO from 12/01/2022 US US RENAL from 03/11/2023 FINDINGS: CHEST: Exam limited by motion and patient body habitus as well as patient arm positioning. Tracheobronchial tree: Patent where visualized. Pulmonary parenchyma: Difficult to evaluate due to motion. bilateral ground-glass opacities, simila r to prior. Pleura: No effusion or pneumothorax. Lymph nodes: Within normal limits. Aorta: Thoracic portion non-dilated. Heart: Enlarged. Mild to moderate coronary artery calcifications. No pericardial effusion. Bones: Degenerative changes. No lytic or blastic lesions.No compression fractures. Soft tissues: Calcification again noted in right lobe of the thyroid. ABDOMEN and PELVIS: Liver: Somewhat obscured by streak artifact. Normal density. No measurable mass. Gallbladder and biliary tract: No evidence of stones or wall thickening. No biliary dilatation. Pancreas: Normal density, no abnormal calcifications or inflammatory process. Spleen: Normal. Kidneys: Left nephrostomy tube with pigtail in renal pelvis. Left renal stent with upper pigtail in renal pelvis and lower pigtail in urinary bladder. Air seen within the left renal collecting system. Rounded area of increased attenuation in the upper pole of the right kidney may represent focal hem atoma. No perinephric collection. No hydronephrosis. Small stone posterior upper pole of the left kidney. Small stone lower pole right kidney. Adrenal glands: No masses seen. Aorta: Abdominal portion non-dilated. Lymph nodes: Within normal limits. Soft tissues: Dehiscence of the anterior abdominal wall. No change from prior. Bladder: Nearly empty. Unremarkable. Bowel: No obstruction or bowel wall thickening. mild diverticulosis. No evidence of diverticulitis . No evidence of appendicitis. Peritoneal cavity: No ascites. No focal collection. No mesenteric inflammatory response. Bones: degenerative changes in the spine and hips. No evidence of fracture. Reproductive organs: Status post hysterectomy. IMPRESSION: Chest CT: Limited evaluation due to motion. Bilateral ground-glass opacities, similar to prior. Abdomen pelvic CT left upper ostomy tube and left ureteral stents are in place. There is no evidence of hydronephrosis. Air and left collecting system related to nephrostomy tube. Rounded area of increased attenuation in the upper pole of the left kidney may represent a focal bernadine maria e. This is seen as a rounded complex area on the ultrasound performed earlier the same day. Findings called to Teresa Wade, ER provider. RADIATION DOSE DELIVERED: Total DLP DATA REPOSITORY: All CT scans at this facility are submitted to the National Radiology Data Registry (NRDR) Dose Index Registry (DIR) with the [employer] (A[employer]). RADIATION OPTIMIZATION: All CT scans at this facility use at least one of these dose optimization te chniques: automated exposure control; mA and/or kV adjustment per patient size (includes targeted exa ms where dose is matched to clinical indication); or iterative reconstruction.
[2023-03-11 12:03] LABS: NT-proBNP 19785 pg/mL (<300)
[2023-03-11] MEDS: Torsemide 20 MG TAB 40 MG PO (12:37)
[2023-03-11] MEDS: cefTRIAXone 1 GM/50 ML BAG IVPB (13:43)
[2023-03-11] MEDS: Lactated Ringers 1,000 ML 125 ML IV (14:24)
--- NOTE | 2023-03-11 15:19 | DI.US_ITS ---
APPROVED REPORT EXAM: Limited 2D, Doppler, and color-flow Echocardiogram Patient Location: ER Room/Bed: 7 Wellness Consultant: Dominic Melton RDCS (AE) Indications: CHF, limited exam to evaluate LV/RV function Other Information Study Quality: Adequate. Technically limited study due to body habitus, inability to position patient , exam done bedside, patient unable to follow breathing manuevers. Conclusion 1. A technically limited study due to body habitus. 2. Patient in atrial fibrillation with controlled ventricular response during study. 3. Moderately dilated atria, ventricles normal in size. 4. Normal LV systolic function without wall motion abnormality, EF 55-60% 5. Anatomically normal valves. Mild to moderate TR with moderate pulmonary hypertension, 50 mmHg. 6. Dilated IVC suggests volume overload. 7. No pericardial effusion. Wall motion Left Ventricle The left ventricle is normal size. Left ventricular systolic function is borderline. The Ejection Fra ction is 55-60%. The left ventricular systolic function is normal. The left ventricular ejection frac tion is within the normal range. Mild concentric left ventricular hypertrophy. There is normal LV seg mental wall motion. . Right Ventricle Right ventricle is not well visualized. Right ventricle is mildly dilated. Right ventricular systolic function is grossly normal. Atria The left atrium is moderately dilated. The right atrium is moderately dilated. Great Vessels The IVC collapses <50% with inspiration. 2D Dimensions IVSD d PLAX 1.09 cm F: 0.6-1.0 LVPW d PLAX 1.09 cm F: 0.6 - 1.0 LVID d PLAX 3.96 cm F: 3.8 - 5.2 LVDs 2.92 cm F: 2.2 - 3.5 LV EF Teichholz 52.1 % FS 26.26 % LV EDV (Teich) 68.3 mL LV ESV (Teich) 32.7 mL Auto EF LV EDV A4C 64.9 mL LV EDV A2C 94.2 mL LV EDV BP LV ESV A4C 32.9 mL LV ESV A2C 46.8 mL LV ESV BP LVEF(%) A4C 49.4 % LVEF(%) A2C 50.4 % LVEF(%) BP LV SV A4C 32.1 ml LV SV A2C 47.4 ml LV SV BP LV CO A4C 3.7 L/min LV CO A2C 3.6 L/min LV CO BP HR A4C 114.65 BPM HR A2C 76.76 BPM LV EDV Index (BP) Tricuspid Valve RA Pressure 8.00 mmHg TR Vmax 3.27 m/s TR Peak Grad 42.7 mmHg RVSP (TR) 50.8 mmHg
[2023-03-11] MEDS: levoFLOXacin 500 MG, levoFLOXacin 250 MG 750 MG PO (15:28)
[2023-03-11 16:18] LABS: COVID-19 PCR Negative (Negative); Influenza A PCR Negative (Negative); Influenza B PCR Negative (Negative); RSV PCR Negative (Negative)
[2023-03-11 16:23] LABS: Source Nasopharynx
--- NOTE | 2023-03-11 17:11 | HPE_ITS ---
Date of service: 03/11/23 Time of Service: 17:11 Assessment and Plan Assessment and plan (1) CHF (congestive heart failure): Status: Acute Assessment and plan: Admitted to the medical surgical unit under hospitalist services. Echocardiogram limited performed with results pending. Will resume oral torsemide. Monitor I/O closely, daily weights. Qualifiers: Heart failure chronicity: chronic Heart failure type: unspecified Qualified Code(s): I50.9 - Heart failure, unspecified (2) Obstructive sleep apnea treated with BiPAP: Status: Chronic Assessment and plan: Son is to bring in her home Trelegy unit for use at night as previously directed (3) Type II diabetes mellitus: Status: Chronic Assessment and plan: Diet controlled No monitoring at this time Qualifiers: Chronic kidney disease stage: stage 4 (severe) Diabetes mellitus complication detail: with chronic kidney disease Diabetes mellitus complication status: with kidney complications Diabetes mellitus detention insulin use: with ocean transportation intermediary use Qualified Code(s): E11.22 - Type 2 diabetes mellitus with diabetic chronic kidney disease; N18.4 - Chronic kidney disease, stage 4 (severe); Z79.4 - ocean transportation intermediary (current) use of insulin (4) Generalized weakness: Status: Acute Assessment and plan: Physical therapy will be consulted she is fall risk declining rehabilitation (5) Chronic anticoagulation: Status: Chronic Assessment and plan: Continue apixaban no further DVT prophylaxis needed (6) JOY (acute kidney injury): Status: Acute Assessment and plan: Creatinine above baseline at 3.8. May represent cardiorenal. Will diurese and monitor closely avoid nephrotoxic drugs renally dose as needed continue to closely monitor (7) Acute UTI: Status: Acute Assessment and plan: Recently treated with 2 weeks of cephalexin has chronic indwelling Ruiz catheter and probably chronically colonized she is asymptomatic with no fever, encephalopathy, or other complaints of suspected infection so will hold off on antibiotic treatment at this time. She did receive 1 dose this Rocephin in the emergency department prior to admission discussed with DR Hartmann History of Present Illness History of Present Illness Chief Complaint: frequent falls Narrative: released 03/04 from [facility] rehab where she was for a month, states she has been without her trelogy and they told her to stop her diuretic. she felt no improvement in her strength at rehab and would decline to go back to any rehab and will only be discharged to home. her work up in the ED ruled out concern for nephrostomy tube dysfunction. case discussed with DR morton, no intervention needed at this time. patient appeared mildly fluid overload and received her usual torsemide dose with some diuresis effect, she does deny sob, cp cough or edema. limited echo does support fluid overload Review of Systems All systems reviewed & are unremarkable except as noted in HPI and below PFSH All Active Problems (Updated 03/11/23 @ 21:37 by Myah Victor NP) Fall (Acute) Generalized weakness (Acute) Closed stable burst fracture of ninth thoracic vertebra (Acute) [facility] Acute UTI (Acute) Advance care planning (Acute) Right thyroid nodule (Acute ~11/2022) JOY (acute kidney injury) (Acute) CKD (chronic kidney disease) (Chronic) At high risk for skin breakdown (Acute) Impaired instrumental activities of daily living (Acute) Deficit in activities of daily living (ADL) (Acute) Hyperuricemia (Acute) Bradycardia (Acute) Gout (Chronic) CKD stage 4 due to type 2 diabetes mellitus (Acute) Respiratory failure with hypoxia and hypercapnia (Acute) Obstructive sleep apnea treated with BiPAP (Chronic) CHF (congestive heart failure) (Acute 02/23/14) Preserved EF (10/2020 & 08/2021 ECHO) Obstructive sleep apnea (Chronic 02/23/14) Sleep Med Referral, 04/17/2019-->Very severe YARELY; CPAP ([employer]) with continuous O2, new Panda C-Pap 01/2021 Type II diabetes mellitus (Chronic) Hypertension (Chronic) Hyperlipidemia (Chronic) Atrial fibrillation (Chronic) Apixaban Anemia (Chronic) Pulmonary hypertension (Chronic) Dependence on supplemental oxygen (Chronic) YARELY + Pulm HTN Palliative care status (Chronic) Full code status (Chronic) Chronic low back pain (Chronic 07/24/15) CT-lumbar spine 2019-- Severe multilevel degenerative changes in the lumbar spine resulting in neural foraminal and central spinal canal stenosis. Chronic anticoagulation (Chronic) AF--Apixaban Risk for falls (Chronic) Sedentary lifestyle (Chronic) B12 deficiency (Chronic) Start B12 injections; elevated MCV Chronic respiratory failure with hypercapnia (Chronic) Obesity hypoventilation syndrome (Chronic) Obesity + Severe YARELY + Chronic Hypercapnia Dependent on walker for ambulation (Chronic) Hypomagnesemia (Acute ~07/2021) Mild mitral valve regurgitation (Acute ~08/2021) ECHO Trace tricuspid valve regurgitation (Acute ~08/2021) ECHO Medical History Diverticulosis Knee pain, left Pressure sore on buttocks Trigger finger, right middle finger Injection: 05/04/2022 Right carpal tunnel syndrome Lipoma Restrictive lung disease (~03/2014) PFTs validated 04/04/2014-->see scanned docs Gout attack (~10/2020) R podagra, first attack 10/2020-->treated with colchine, effective Sciatica of right side without back pain RX Medrol Dietary counseling reviewed sodium levels in her food, how to count mg, goal of 1500 mg daily due to CHF Renal calculi Non obstructive per CT Peptic ulcer of duodenum [facility] [place] upper endoscopy; RX Carafate Female hirsutism Carpal tunnel syndrome, bilateral (12/17/16) Lipoma of arm Heme + stool [facility] [place] Peptic Duodenitis (pathology report); repeat hemoccults NEG 11/2019 Folate deficiency Low 12/2018; resolved 05/2019 labs; discontinued 02/05/2020 Iron deficiency E[place] 05[place]23[place] [facility] discont supp iron & vit c 02/05/2020; Hgb stable and iron constipating; she will obtain dietarily YARELY (obstructive sleep apnea) Spinal stenosis, lumbar HTN (hypertension) Insulin dependent diabetes mellitus Edentulous H/O rotator cuff tear H/O fracture of nose h/o elbow fx Adult body mass index 50.0-59.9 Surgical History History of total knee arthroplasty bilateral History of total abdominal hysterectomy and bilateral salpingo-oophorectomy (~02/1999) History of shoulder surgery Right shoulder repair - 2004 History of carpal tunnel repair Left- 1998 Right- 2018 Colonoscopy - MAC (08/14/16) Biopsy, Temporal Artery (01/18/15) DR.C YOUNG History of total bilateral knee replacement Family History Mother Heart disease Father Heart disease Lung cancer Brother Heart disease AAA (abdominal aortic aneurysm, ruptured) Brother Obesity Son No problems noted. Daughter Stillborn, abnormal Daughter No problems noted. 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 [employer] Pets and animals: Yes Pets and animals: cat(s) Sexually active: No Do you think of yourself as: straight/heterosexual Current gender identity: female What is your relationship status?: How often do you talk on the phone with friends or family?: once per week How often do you get together with friends or relatives?: once per week Panel score (0-1 are the most socially isolated patients): 0 What type of physical activity do you participate in: none and sedentary lifestyle Special jakob needs: No Agree to transfusion: Yes Seatbelt use: always In current or past relationships, have you been: made to feel afraid Do you feel safe at home: Yes Do you feel safe in your relationship?: Yes Additional Social history: Was discharged from [facility] yesterday. LAI SANTANA 03/05/23 Meds Allergies and Home Medications Allergies Allergy/AdvReac Type Severity Reaction Status Date / Time codeine Allergy Severe Swelling/Ed Verified 03/11/23 08:50 warner furosemide [From Lasix] Allergy Severe Swelling/Ed Verified 03/11/23 08:50 warner morphine Allergy Severe Swelling/Ed Verified 03/11/23 08:50 warner peanut Allergy Severe Nausea Verified 03/11/23 08:50 tree nut Allergy Severe Verified 03/11/23 08:50 acetaminophen [From Percocet] Allergy Intermediate ITCHY Verified 03/11/23 08:50 adhesive tape Allergy Intermediate Skin Rash Verified 03/11/23 08:50 oxycodone HCl [From Percocet] Allergy Intermediate ITCHY Verified 03/11/23 08:50 apricot Allergy Unknown Uncoded 03/11/23 08:50 Home Medications Medication Instructions Recorded Confirmed Type acetaminophen 500 mg tablet 500 mg PO Q6H PRN 12/04/19 03/11/23 History (Tylenol Extra Strength) syringe with needle 3 mL 23 x 1 #15 ea 11/24/21 03/11/23 Rx (BD Eclipse Luer-Timi) Oxygen #1 ea 12/19/21 03/11/23 Rx docusate sodium 100 mg capsule 100 mg PO BID PRN 02/10/22 03/11/23 History (Colace) atorvastatin 80 mg tablet 80 mg PO QHS #90 tabs 05/11/22 03/11/23 Rx 3XL incontinence briefs #30 ea 05/30/22 03/11/23 Rx Wheelchair #1 ea 06/08/22 03/11/23 Rx pen needle, diabetic 31 gauge x #100 ea 07/07/22 03/11/23 Rx 3/16 (BD Ultra-Fine Mini Pen Needle) allopurinol 100 mg tablet 100 mg PO DAILY #90 tabs 08/03/22 03/11/23 Rx amlodipine 5 mg tablet 5 mg PO DAILY #90 tabs 08/03/22 03/11/23 Rx apixaban 5 mg tablet (Eliquis) 5 mg PO BID #180 tabs 08/03/22 03/11/23 Rx flash glucose sensor (FreeStyle #2 ea 08/19/22 03/11/23 Rx Bradley 2 Sensor kit) folic acid 1 mg tablet 1 mg PO DAILY 02/24/23 03/11/23 History magnesium hydroxide 400 mg/5 mL 30 ml PO DAILY PRN 02/24/23 03/11/23 History oral suspension (Dulcolax (magnesium hydroxide)) polyethylene glycol 3350 17 17 g PO DAILY PRN 02/24/23 03/11/23 History gram/dose oral powder (ClearLax) torsemide 20 mg tablet 20 mg PO DAILY 02/24/23 03/11/23 History Saccharomyces boulardii-Bacillus 1 cap PO DAILY 03/05/23 03/11/23 History coagulans-FOS 471 mg capsule bismuth subsalicylate 262 mg/15 mL 524 mg PO QID 03/05/23 03/11/23 History oral suspension (Anti-Diarrheal) ondansetron 4 mg disintegrating 4 mg PO QD-BID PRN 03/05/23 03/11/23 History tablet sodium chloride 0.9 % (flush) 10 ml IV BID 03/05/23 03/11/23 History Exam Const General: cooperative, comfortable and no acute distress Nutritional Appearance: overweight Orientation: alert, awake and oriented x3 HENMT Head: normal to inspection, normocephalic and atraumatic Mouth: oral mucosae normal Chest Chest: normal inspection of the chest Resp Effort & Inspection: normal respiratory effort Auscultation: diminished lung sounds (bases bilaterally) Cardio Rate: regular rate GI Inspection: normal to inspection Palpation: soft Auscultation: normal bowel sounds Other: Ruiz present on admission. Intact and draining cloudy concentrated medium yellow urine Neuro General: patient alert, patient awake and patient oriented x3 (at baseline) Cognition: normal cognition Extrem General: normal to inspection and pedal edema Psych Mental Status: mental status grossly normal Speech and Movement: speech and movement normal Mood: congruent mood Affect: normal affect Results Labs 03/11/23 09:50 03/11/23 09:50 Labs: Laboratory Results - last 24 hr 03/11/23 03/11/23 03/11/23 09:01 09:50 09:50 WBC 10.30 RBC 3.20 L Hgb 10.2 L Hct 33.1 L MCV 103 H MCH 31.9 MCHC 30.8 L RDW 15.9 H Plt Count 401 H MPV 9.7 Immature Gran % 0.9 Neutrophils % 79.4 Lymphocytes % 7.5 Monocytes % 4.3 Eosinophils % 7.7 Basophils % 0.2 Nucleated RBC % 0.0 Absolute Neutrophils 8.19 H Absolute Lymphocytes 0.77 L Absolute Monocytes 0.44 Absolute Eosinophils 0.79 H Absolute Basophils 0.02 PT 11.7 H INR 1.2 H APTT 31.4 VBG pH VBG pCO2 VBG pO2 VBG HCO3 VBG Total CO2 VBG O2 Saturation VBG Base Excess Sodium 137 Potassium 3.9 Chloride 100 Carbon Dioxide 28.7 Anion Gap 8.3 BUN 84 H* Creatinine 3.8 H* Est GFR (CKD-EPI 2020) 11.76 Glucose 156 H Calcium 9.0 Magnesium 1.8 Total Bilirubin 0.4 AST 15 ALT 15 Alkaline Phosphatase 81 NT-Pro-B Natriuret Pep Cancelled H Total Protein 7.5 Albumin 2.4 L Urine Color Urine Clarity Urine pH Ur Specific [place] Urine Protein Urine Ketones Urine Blood Urine Nitrite Urine Bilirubin Urine Urobilinogen Ur Leukocyte Esterase Urine RBC Urine WBC Ur Epithelial Cells Urine Crystals Urine Bacteria Urine Casts Urine Mucus Urine Other Ur Culture Indicated? Urine Glucose COVID-19 Source SARS-CoV-2 (PCR) Influenza Type A (PCR) Influenza Type B (PCR) RSV (PCR) Add-On Test Request DONE DONE 03/11/23 03/11/23 03/11/23 10:31 11:08 15:32 WBC RBC Hgb Hct MCV MCH MCHC RDW Plt Count MPV Immature Gran % Neutrophils % Lymphocytes % Monocytes % Eosinophils % Basophils % Nucleated RBC % Absolute Neutrophils Absolute Lymphocytes Absolute Monocytes Absolute Eosinophils Absolute Basophils PT INR APTT VBG pH 7.24 L VBG pCO2 62 H* VBG pO2 46 VBG HCO3 27 VBG Total CO2 26 VBG O2 Saturation 77 VBG Base Excess -1 Sodium Potassium Chloride Carbon Dioxide Anion Gap BUN Creatinine Est GFR (CKD-EPI 2020) Glucose Calcium Magnesium Total Bilirubin AST ALT Alkaline Phosphatase NT-Pro-B Natriuret Pep Total Protein Albumin Urine Color Yellow Urine Clarity Turbid Urine pH 5.5 Ur Specific [place] 1.020 Urine Protein >=300 H Urine Ketones Negative Urine Blood Large H Urine Nitrite Negative Urine Bilirubin Negative Urine Urobilinogen 0.2 Ur Leukocyte Esterase Large H Urine RBC >50 H Urine WBC >50 H Ur Epithelial Cells Negative Urine Crystals Negative Urine Bacteria Many Urine Casts Negative Urine Mucus Heavy Urine Other Negative Ur Culture Indicated? Yes Urine Glucose Negative COVID-19 Source Nasopharynx SARS-CoV-2 (PCR) Negative Influenza Type A (PCR) Negative Influenza Type B (PCR) Negative RSV (PCR) Negative Add-On Test Request Last Vital Signs Temp 36.6 C 03/11/23 08:45 Pulse 57 L 03/11/23 16:01 Resp 11 L 03/11/23 16:01 BP 124/68 03/11/23 16:01 Pulse Ox 93 03/11/23 16:01 Time Spent Time spent with Patient: 55-74 minutes Time was spent: preparing to see the patient(eg.review tests), obtaining and/or reviewing separately otained hiistory, ordering medications,tests, procedures, referring, communicating with other health rn urgent care, indepentently interpreting results, counseling the patient and care coordination
[2023-03-11] MEDS: Acetaminophen 500 MG TAB 1000 MG PO (18:16)
[2023-03-11] MEDS: Apixaban 5 MG TAB PO (21:47)
[2023-03-11] MEDS: Normal Saline Flush 10 ML SYR IV (21:48)
[2023-03-12 00:23] VITALS: BP 115/63; PULSE 70; RESP 17; TEMP 36; O2SAT 98
[2023-03-12 01:13] VITALS: RESP 10; RESP 12; RESP 18
[2023-03-12] MEDS: Acetaminophen 500 MG TAB PO (04:32)
[2023-03-12 05:19] VITALS: O2SAT 96
[2023-03-12 06:21] LABS: Abs Immature Grans 0.04 10^3/uL (0.0-0.06); Absolute Basophil Count 0.02 10^3/uL (0.0-0.2); Absolute Eosinophil Count 0.64 10^3/uL (0.0-0.7); Absolute Monocyte Count 0.38 10^3/uL (0.1-0.8); Absolute Neutrophil Count 4.25 10^3/uL (1.2-6.7); Basophils % 0.3; Eosinophils % 10.3; HGB 8.5 g/dL (11.2-15.7); Immature Grans % 0.6; Lymphocytes % 14.4; MCH 32.6 pg (27.0-33.0); MCHC 31.5 % (32.0-36.0); MCV 103 fL (80-95); MPV 10.3 fL (8.0-11.0); Monocytes % 6.1; Neutrophils % 68.3; Platelet Count 333 10^3/uL (130-400); RBC 2.61 10^6/uL (3.93-5.22); RDW 16.5 % (11.7-14.6); RDW-SD 61.3 fL; WBC 6.23 10^3/uL (4.4-10.8)
[2023-03-12 06:31] LABS: Anion Gap 5.8 mmol/L (3-11); BUN 75 mg/dL (7-18); CO2 29.2 mmol/L (21.0-32.0); CREATININE 3.3 mg/dL (0.55-1.02); Calcium 8.2 mg/dL (8.5-10.1); Chloride 104 mmol/L (98-107); Estimated GFR 13.93 (mL/min/1.73m2); Glucose 94 mg/dL (74-106); Potassium 3.9 mmol/L (3.5-5.1); Sodium 139 mmol/L (136-145)
[2023-03-12] MEDS: Torsemide 20 MG TAB PO (08:09)
[2023-03-12] MEDS: Allopurinol 100 MG TAB PO (08:09)
[2023-03-12] MEDS: Apixaban 5 MG TAB PO ×2 (08:10→20:21)
[2023-03-12] MEDS: Normal Saline Flush 10 ML SYR IV ×2 (08:10→20:23)
[2023-03-12 08:13] VITALS: BP 93/57; PULSE 70; RESP 16; TEMP 36.4; O2SAT 92
--- NOTE | 2023-03-12 10:55 | IN_ITS ---
PT Notes Visit Reasons: heart failure,freq falls Physical Therapy Inpatient Initial Evaluation Date: 03/12/2023 Referring Doctor: Myah Victor NP PT Orders: PT CONSULT: Eval/Treat Precautions: Fall. Standard. On 4 L of oxygen supplementation via NC. Patient Profile/Admitting Diagnosis: Mohan is 77 yo female who has had a couple ED visit this [facility] before her most recent ED presentation on 03/11/2023 due to fall and R hip pain during transfer at home. Patient is admitted to med surg status due to CHF, YARELY, type II DM, generalized weakness, on chroninc anticoagulation, JOY, and acute UTI. Pelvic and femur radiographs did not show any fracture/dislocation. PMHX: All Active Problems (Updated 03/11/23 @ 21:37 by Myah Victor NP) Fall (Acute) Generalized weakness (Acute) Closed stable burst fracture of ninth thoracic vertebra (Acute) [facility] Pain & Spine-03/01/23Acute UTI (Acute) Advance care planning (Acute) Right thyroid nodule (Acute ~11/2022) JOY (acute kidney injury) (Acute) CKD (chronic kidney disease) (Chronic) At high risk for skin breakdown (Acute) Impaired instrumental activities of daily living (Acute) Deficit in activities of daily living (ADL) (Acute) Hyperuricemia (Acute) Bradycardia (Acute) Gout (Chronic) CKD stage 4 due to type 2 diabetes mellitus (Acute) Respiratory failure with hypoxia and hypercapnia (Acute) Obstructive sleep apnea treated with BiPAP (Chronic) CHF (congestive heart failure) (Acute 02/23/14) Preserved EF (10/2020 & 08/2021 ECHO) Obstructive sleep apnea (Chronic 02/23/14) Sleep Med Referral, 04/17/2019-->Very severe YARELY; CPAP ([employer]) with continuous O2, new Panda C-Pap 01/2021 Type II diabetes mellitus (Chronic) Hypertension (Chronic) Hyperlipidemia (Chronic) Atrial fibrillation (Chronic) ApixabanAnemia (Chronic) Pulmonary hypertension (Chronic) Dependence on supplemental oxygen (Chronic) YARELY + Pulm HTNPalliative care status (Chronic) Full code status (Chronic) Chronic low back pain (Chronic 07/24/15) CT-lumbar spine 2019-- Severe multilevel degenerative changes in the lumbar spine resulting in neural foraminal and central spinal canal stenosis. Chronic anticoagulation (Chronic) AF--Apixaban Risk for falls (Chronic) Sedentary lifestyle (Chronic) B12 deficiency (Chronic) Start B12 injections; elevated MCV Chronic respiratory failure with hypercapnia (Chronic) Obesity hypoventilation syndrome (Chronic) Obesity + Severe YARELY + Chronic Hypercapnia Dependent on walker for ambulation (Chronic) Hypomagnesemia (Acute ~07/2021) Mild mitral valve regurgitation (Acute ~08/2021) ECHO Trace tricuspid valve regurgitation (Acute ~08/2021) ECHO Medical History Diverticulosis Knee pain, left Pressure sore on buttocks Trigger finger, right middle finger Injection: 05/04/2022 Right carpal tunnel syndrome Lipoma Restrictive lung disease (~03/2014) PFTs validated 04/04/2014-->see scanned docs Gout attack (~10/2020) R podagra, first attack 10/2020-->treated with colchine, effective Sciatica of right side without back pain RX Medrol Dietary counseling reviewed sodium levels in her food, how to count mg, goal of 1500 mg daily due to CHF Renal calculi Non obstructive per CT Peptic ulcer of duodenum [facility] Path reports upper endoscopy; RX Carafate Female hirsutism Carpal tunnel syndrome, bilateral (12/17/16) Lipoma of arm Heme + stool [facility] Upper GI Endoscopy Peptic Duodenitis (pathology report); repeat hemoccults NEG 11/2019 Folate deficiency Low 12/2018; resolved 05/2019 labs; discontinued 02/05/2020 Iron deficiency EGD 05/23/19 at [facility]; discont supp iron & vit c 02/05/2020; Hgb stable and iron constipating; she will obtain dietarily YARELY (obstructive sleep apnea) Spinal stenosis, lumbar HTN (hypertension) Insulin dependent diabetes mellitus Edentulous H/O rotator cuff tear H/O fracture of nose h/o elbow fx Adult body mass index 50.0-59.9 Surgical History History of total knee arthroplasty bilateral History of total abdominal hysterectomy and bilateral salpingo-oophorectomy (~02/1999) History of shoulder surgery Right shoulder repair - 2004 History of carpal tunnel repair Left- 1998 Right- 2017 Colonoscopy - MAC (08/14/16) Biopsy, Temporal Artery (01/18/15) DR.C YOUNG History of total bilateral knee replacement Social History/Home Situation: Lives with son in mobile home, has 4 WING with bilateral rails, on 4L O2 at baseline. Has wheelchair and lift recliner. Ambulates only up to 15 feet at home with FWW and does not venture out into the community. Son is available during the day to help patient out as needed, works at night. Equipment Owned/DME: FWW, SPC, wheelchair, Trilogy ventilator Subjective: Complains of being so itchy in her feet, legs, and back. GRANULATOR OPERATOR Tequila aware and would let Nurse Rios know. Reported pain in low back. Fearful that she may fall. Anxious about falling. Objective: General Observation: Resting in bed. Ruiz catheter in place. IV access through the L UE. Mental Status: A&O x3. ROM: Right Upper Extremity: Shoulder Flexion lacks the last 25% of AROM. Shoulder abdcution lacks the last 25% of AROM. Elbow flexion WFL. Wrist flexion WFL. Opening and closing of hand WFL. Left Upper Extremity: Shoulder Flexion lacks the last 25% of AROM. Shoulder abdcution lacks the last 25% of AROM. Elbow flexion WFL. Wrist flexion WFL. Opening and closing of hand WFL. Right Lower Extremity: Hip flexion lacks the last 25% of AROM. Hip abduction lacks the last 25% of AROM. Knee flexion WFL. Ankle dorsiflexion to neutral only. Ankle plantarflexion WFL. Left Lower Extremity: Hip flexion lacks the last 25% of AROM. Hip abduction lacks the last 25% of AROM. Knee flexion WFL. Ankle dorsiflexion to neutral only. Ankle plantarflexion WFL. Strength: Right Upper Extremity: Shoulder flexors 3-/5. Shoulder abductors 3-/5. Elbow fle xors 4-/5. Elbow extensors 4-/5. Service Order Taker strong. Left Upper Extremity: Shoulder flexors 3-/5. Shoulder abductors 3-/5. Elbow flexors 4-/5. Elbow extensors 4-/5. Service Order Taker strong. Right Lower Extremity: Hip flexors 3-/5. Hip abductors 3-/5. Knee flexors 4-/5. Knee extensors 4-/5. Ankle dorsiflexors 3-/5. Ankle plantarflexors 4-/5. Left Lower Extremity:Hip flexors 3-/5. Hip abductors 3-/5. Knee flexors 4-/5. Knee extensors 4-/5. Ankle dorsiflexors 3-/5. Ankle plantarflexors 4-/5. Sensation: Intact as to pain and pressure on bilateral lower extremities. Pruritus in B feet, legs, and back. Bed Mobility/Transfers: Moderate cueing provided for use of B hands as needed for support, movement sequence, Ad management, and and posture to reduce fall risk and minimize pain report Rolling moderate assist of 2 Supine to sit moderate assist of 2 Sit to stand minimal assist of 1 ( 2 attempts due to fearfulness of falling) Stand to sit minimal assist of 2 Bed to chair moderate assist of 2 Gait: Facilitated safe and correct performance of short distance ambulation covering 8-10 steps using front wheeled walker with moderate to maximal verbal and tactile cueing provided for hand placement, posture, and overall safety. Minimal assist of 2 provided. Patient fearful of falling. Balance: Static Sitting: Normal Dynamic Sitting: Good Static Standing: Fair Dynamic Standing: Poor Special Tests: Mobility Limitations Standardized Measure [facility] AM-PAC 6 clicks Basic Mobility Inpatient Short Form: Raw Score: 12 CMS Score: 69% Informed Consent/Education: Patient was instructed in purpose of PT consult and plan of care. Agreeable to proceed with established PT POC to achieve personal goals. ASSESSMENT: Fearful of falling. Requires assist of 2 for all transfers and short distance ambulation with FWW. Patient presents with clinical signs and symptoms consistent with current/admitting diagnoses that have resulted to mobility limitations, gait instability, generalized weakness, and overall ADL decline as demonstrated by the following impairment level findings: 1. Decreased strength to B UE/LE major muscle groups 2. Impaired sitting/standing balance 3. Impaired activity tolerance 4. Limitation of joint range of motion in B shoudlers and B hips (chronic) 5. Shortness of breath 6. Swelling in B legs Impairments are contributing to the following functional limitations: 1. Decline in bed mobility skills 2. Decline in transfer skills 3. Difficulty with ambulation without assistive device and physical assistance 4. Increased completion time for mobility ADL performance 5. Increased risk for falls 6. Difficulty with managing steps alone safely Patient is assessed as a 96637 moderate complexity based on the following: History: 77-year-old female with past medical history as indicated above Examination: Demonstrable impairment in strength, balance, and mobility level with underlying impairments and functional limitations as exhibited above as well as deficit score of 69% utilizing the [facility] Mobility Inpatient Short Form Presentation: Evolving Decision Makin moderate complexity Goals: Goals X1 week 1. Supine-Sit independent 2. Sit-Supine independent 3. Sit-Stand independent 4. Stand-Sit independent with FWW 5. Bed-Chair independent with FWW 6. Chair-Bed independent with FWW 7. Independent gait on level surface with use of FWW for at least 30 feet without report of pain nor dyspnea 8. Independent stair negotiation while holding onto B rails for at least 5 steps without report of pain nor dyspnea 9. Independent with home exercise program 10. Good static and dynamic standing balance/tolerance Plan of Care/Treatment Plan: 1-2x/day, 7 days/week x 1 week. Plan of care has been reviewed with the DYE TUB TENDER providing the service under Physical Therapy direction. Initiate Physical Therapy intervention for pain management as needed, strengthening, bed mobility, transfers, gait, stairs, balance training, and use of assistive device. DISCHARGE RECOMMENDATIONS: [] Home with no services [] [X] Home with services. Patient will benefit from home health PT services in order to progress mobility level using least restrictive assistive ambulatory device, assess home safety, identify additional equipment needs, and establish a functional maintenance program that will increase ability of patient to remain at home. [] Home with outpatient PT [] [] SNF for continued rehabilitation [] [] Class 1 Owner Operator Care [] [] SNF versus LTC based on ability to participate and progress [] TREATMENT CODE/TIME: 73915 x 20 minutes for 1 unit, 23281 x 15 minutes for 1 unit beginning at 10:10 AM. Thank you for the opportunity to participate in the care of this patient. Ernestine Nieto PT, DPT, CLT [facility] [place], [place]
--- NOTE | 2023-03-12 10:57 | PGE_ITS ---
Date of Service Date of service: 03/12/23 Time of Service: 10:57 Assessment and Plan Assessment and plan (1) CHF (congestive heart failure): Status: Acute Assessment and plan: Echocardiogram limited with no significant changes: Conclusion 1. A technically limited study due to body habitus. 2. Patient in atrial fibrillation with controlled ventricular response during study. 3. Moderately dilated atria, ventricles normal in size. 4. Normal LV systolic function without wall motion abnormality, EF 55-60% 5. Anatomically normal valves. Mild to moderate TR with moderate pulmonary hypertension, 50 mmHg. 6. Dilated IVC suggests volume overload. 7. No pericardial effusion. . Will resume oral torsemide. Monitor I/O closely, daily weights. Qualifiers: Heart failure chronicity: chronic Heart failure type: unspecified Qualified Code(s): I50.9 - Heart failure, unspecified (2) Obstructive sleep apnea treated with BiPAP: Status: Chronic Assessment and plan: continue home Trelegy unit for use at night as previously directed (3) Type II diabetes mellitus: Status: Chronic Assessment and plan: Diet controlled No monitoring at this time Qualifiers: Chronic kidney disease stage: stage 4 (severe) Diabetes mellitus complication detail: with chronic kidney disease Diabetes mellitus complication status: with kidney complications Diabetes mellitus terminal gauger supervisor insulin use: with terminal gauger supervisor use Qualified Code(s): E11.22 - Type 2 diabetes mellitus with diabetic chronic kidney disease; N18.4 - Chronic kidney disease, stage 4 (severe); Z79.4 - buttermaker continuous churn (current) use of insulin (4) Generalized weakness: Status: Acute Assessment and plan: Physical therapy consultation (5) Chronic anticoagulation: Status: Chronic Assessment and plan: Continue apixaban no further DVT prophylaxis needed (6) JOY (acute kidney injury): Status: Acute Assessment and plan: Creatinine trending down with resumed diuresis. baseline 2.1-2.6 Continue to monitor closely avoid nephrotoxic drugs, renally dose as needed continue to closely monitor (7) Acute UTI: Status: Acute Assessment and plan: Recently treated with 2 weeks of cephalexin has chronic indwelling Ruiz catheter and probably chronically colonized she is asymptomatic with no fever, encephalopathy, or other complaints of suspected infection so will hold off on antibiotic treatment at this time. She did receive 1 dose this Rocephin and levaquin in the emergency department prior to admission.. no fever overnight discussed with DR Hartmann Subjective Subjective Patient reports: no new complaints, feels better, tolerating liquids well, tolerating a regular diet, voiding w/o difficulty (voids as well as nephrostomy tube) and afebrile; denies shortness of breath Exam Const General: cooperative, comfortable and no acute distress Nutritional Appearance: overweight Orientation: alert, awake and oriented x3 HENMT Head: normal to inspection, normocephalic and atraumatic Mouth: oral mucosae normal Chest Chest: normal inspection of the chest Resp Effort & Inspection: normal respiratory effort Auscultation: diminished lung sounds (bases bilaterally) Cardio Rate: regular rate GI Inspection: normal to inspection Palpation: soft Auscultation: normal bowel sounds Other: Ruiz present on admission. Intact and draining cloudy concentrated medium yellow urine Neuro General: patient alert, patient awake and patient oriented x3 (at baseline) Cognition: normal cognition Extrem General: normal to inspection and pedal edema Psych Mental Status: mental status grossly normal Speech and Movement: speech and movement normal Mood: congruent mood Affect: normal affect Objective Last Vital Signs Temp 36.4 C L 03/12/23 08:13 Pulse 70 03/12/23 08:13 Resp 16 03/12/23 08:13 BP 93/57 L 03/12/23 08:13 Pulse Ox 92 03/12/23 08:13 Laboratory Results - last 24 hr 03/11/23 03/11/23 03/11/23 09:50 09:50 11:08 WBC RBC Hgb Hct MCV MCH MCHC RDW Plt Count MPV Immature Gran % Neutrophils % Lymphocytes % Monocytes % Eosinophils % Basophils % Nucleated RBC % Absolute Neutrophils Absolute Lymphocytes Absolute Monocytes Absolute Eosinophils Absolute Basophils VBG pH 7.24 L VBG pCO2 62 H* VBG pO2 46 VBG HCO3 27 VBG Total CO2 26 VBG O2 Saturation 77 VBG Base Excess -1 Sodium Potassium Chloride Carbon Dioxide Anion Gap BUN Creatinine Est GFR (CKD-EPI 2020) Glucose Calcium NT-Pro-B Natriuret Pep Cancelled H COVID-19 Source SARS-CoV-2 (PCR) Influenza Type A (PCR) Influenza Type B (PCR) RSV (PCR) Add-On Test Request DONE 03/11/23 03/12/23 15:32 05:46 WBC 6.23 RBC 2.61 L Hgb 8.5 L Hct 27.0 L MCV 103 H MCH 32.6 MCHC 31.5 L RDW 16.5 H Plt Count 333 MPV 10.3 Immature Gran % 0.6 Neutrophils % 68.3 Lymphocytes % 14.4 Monocytes % 6.1 Eosinophils % 10.3 Basophils % 0.3 Nucleated RBC % 0.0 Absolute Neutrophils 4.25 Absolute Lymphocytes 0.90 L Absolute Monocytes 0.38 Absolute Eosinophils 0.64 Absolute Basophils 0.02 VBG pH VBG pCO2 VBG pO2 VBG HCO3 VBG Total CO2 VBG O2 Saturation VBG Base Excess Sodium 139 Potassium 3.9 Chloride 104 Carbon Dioxide 29.2 Anion Gap 5.8 BUN 75 H Creatinine 3.3 H Est GFR (CKD-EPI 2020) 13.93 Glucose 94 Calcium 8.2 L NT-Pro-B Natriuret Pep COVID-19 Source Nasopharynx SARS-CoV-2 (PCR) Negative Influenza Type A (PCR) Negative Influenza Type B (PCR) Negative RSV (PCR) Negative Add-On Test Request Time Spent with Patient Time Spent with Patient: 25-34 minutes Time was spent: preparing to see the patient(eg.review tests), obtaining and/or reviewing separately otained hiistory, ordering medications,tests, procedures, indepentently interpreting results and counseling the patient
--- NOTE | 2023-03-12 15:09 | PTTR_ITS ---
Date of service: 03/12/23 Time of Service: 14:50 PT Notes Visit Reasons: heart failure,freq falls Inpatient Physical Therapy Treatment Note [facility] Date: 03/12/23 PRECAUTIONS: Fall, standard, activity as tolerated. SUBJECTIVE: Patient reports fatigue, Standing up to get to the commode just about wiped me out!. Also reports pain in butt cheeks. OBJECTIVE: Sitting up in bedside chair, Ruiz catheter in place, 4L supplemental O2 via high flow mask. [place] alarm in place and active. ? PAIN: Yes, patient has a wound over her sacrum which is painful, patient reports the dressing needs to be changed today. VITALS: monitored by nursing staff. Therapeutic Activities ([id number]): Direct one-on-one instruction in dynamic activities to improve functional performance. ? BED MOBILITY/TRANSFERS? Rolling L/R: not assessed Supine-sit: not assessed ? Sit-supine: not assessed ? Sit-stand x3: mod assist of one at gait belt with verbal cues to push up from sitting surface. ? Stand-sit x3: CGA? Bed-Chair: not assessed ? Chair-bed: not assessed Patient is dependent to scoot back further into chair. Reports that attempting to scoot herself causes too much pain in her butt cheeks. Unwilling to attempt leaning to unweight each side and scoot back independently. Education provided on importance of being able to independently reposition. Patient participates in standing tolerance training. Patient is able to tolerate 30-45 seconds of standing before needing to sit for an extended rest. Provided skilled cues and instruction on performance and technique throughout. ASSESSMENT:? Patient tolerates therapy well, despite fatigue. Returns to bedside chair at end of treatment session. [place] alarm active, call orozco within easy reach. PLAN: continue global strengthening per plan of care until patient is medically cleared for discharge and obtains safe discharge plan. TREATMENT CODE/TIME: 15 minutes beginning at 14:50
[2023-03-12 15:12] VITALS: BP 110/66; PULSE 63; RESP 16; TEMP 37.6; O2SAT 97
--- NOTE | 2023-03-12 17:31 | CHAPLAIN ---
Mohan and I know each other from previous admissions. She was wearing an oxygen mask when I visited this evening. She said her son will bring in her own BiPap machine tonight, and she thinks she'll sleep better with that. Mohan said she's had trouble breathing and now has two sores on her bottom that are bothering her. I will continue to visit.
--- NOTE | 2023-03-12 19:23 | PDOC.CMIN ---
Date of service: 03/12/23 Time of Service: 19:23 Care Management Initial Assmt Initial Assessment REASON FOR HOSPITALIZATION:: Heart Failure, frequent falls PREVIOUS FUNCTIONAL STATUS/SOCIAL/FAMILY SUPPORTS:: Jane is and lives in [place] at her mobile home with her son Abdias. 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 Per Mohan, she is still independent with her ADL's as long as Abdias is in the room and can help her get into the tub. Abdias cooks and cleans is very supportive. Mohan uses a walker at home and recently got a motorized wheelchair. Mohan has home O2 and a Trelegy machine. Ruby Flores is her case packer and sealer in the community and she is followed by Palliative care. CURRENT FUNCTIONAL STATUS:: Mohan was sitting up in her chair when CM met with her. She stated that she is feeling well today, but not quite at her baseline. She stated that she was recently at [facility], but returned home in time for D Lo. She stated that she generally does well at home, but she has been feeling weak, which has led to her falling. CM inquired about her time at rehab; she stated that she was making good progress toward her goals, and she was discharged home. She was evaluated by PT, who recommends that she return home with HH services once she is medically ready for discharge. Mohan stated that she does have HH services currently; CM will resume these orders upon discharge. CM will continue to follow. ADVANCE DIRECTIVES:: On file; Abdias (son) listed as HCA. Has patient been provided with info about the portal/API?: Yes Did the patient sign up for the portal?: No CODE STATUS:: Full Code INSURANCE COVERAGE / FINANCIAL ISSUES:: MCR CURRENT HOME/COMMUNITY SERVICES/EQUIPMENT:: HH services; [facility] moderate needs, case packer and sealer Oma Flores. Home O2 and Trelegy machine. FWW, cane and motorized w/c. PRIMARY CARE PHYSICIAN:: Laverne Sung POTENTIAL DISCHARGE NEEDS:: Evaluations for further needs, follow up appointments. PATIENT/FAMILY EDUCATION NEEDS:: Review discharge instructions and limitations, discussion of self care needs including ask me three. ANTICIPATED BARRIERS TO DISCHARGE:: None identified. TRANSPORTATION:: Via w/c van vs EMS PLAN:: Anticipate Mohan will return home once medically cleared with a resumption of HH services. She will transport via w/c van vs EMS, depending on mobility needs at time of discharge. Her son lives with her and will help support her at home. She will follow up with her PCP, palliative care, and her discharge plan of care. CM will continue to follow. [facility] All Active Problems (Updated 03/11/23 @ 21:37 by Myah Victor NP) Fall (Acute) Generalized weakness (Acute) Closed stable burst fracture of ninth thoracic vertebra (Acute) [facility] [place] [facility] Acute UTI (Acute) Advance care planning (Acute) Right thyroid nodule (Acute ~11/2022) JOY (acute kidney injury) (Acute) CKD (chronic kidney disease) (Chronic) At high risk for skin breakdown (Acute) Impaired instrumental activities of daily living (Acute) Deficit in activities of daily living (ADL) (Acute) Hyperuricemia (Acute) Bradycardia (Acute) Gout (Chronic) CKD stage 4 due to type 2 diabetes mellitus (Acute) Respiratory failure with hypoxia and hypercapnia (Acute) Obstructive sleep apnea treated with BiPAP (Chronic) CHF (congestive heart failure) (Acute 02/23/14) Preserved EF (10/2020 & 08/2021 ECHO) Obstructive sleep apnea (Chronic 02/23/14) Sleep Med Referral, 04/17/2019-->Very severe YARELY; CPAP ([employer]) with continuous O2, new Panda C-Pap 01/2021 Type II diabetes mellitus (Chronic) Hypertension (Chronic) Hyperlipidemia (Chronic) Atrial fibrillation (Chronic) Apixaban Anemia (Chronic) Pulmonary hypertension (Chronic) Dependence on supplemental oxygen (Chronic) YARELY + Pulm HTN Palliative care status (Chronic) Full code status (Chronic) Chronic low back pain (Chronic 07/24/15) CT-lumbar spine 2019-- Severe multilevel degenerative changes in the lumbar spine resulting in neural foraminal and central spinal canal stenosis. Chronic anticoagulation (Chronic) AF--Apixaban Risk for falls (Chronic) Sedentary lifestyle (Chronic) B12 deficiency (Chronic) Start B12 injections; elevated MCV Chronic respiratory failure with hypercapnia (Chronic) Obesity hypoventilation syndrome (Chronic) Obesity + Severe YARELY + Chronic Hypercapnia Dependent on walker for ambulation (Chronic) Hypomagnesemia (Acute ~07/2021) Mild mitral valve regurgitation (Acute ~08/2021) ECHO Trace tricuspid valve regurgitation (Acute ~08/2021) ECHO Medical History Diverticulosis Knee pain, left Pressure sore on buttocks Trigger finger, right middle finger Injection: 05/04/2022 Right carpal tunnel syndrome Lipoma Restrictive lung disease (~03/2014) PFTs validated 04/04/2014-->see scanned docs Gout attack (~10/2020) R podagra, first attack 10/2020-->treated with colchine, effective Sciatica of right side without back pain RX Medrol Dietary counseling reviewed sodium levels in her food, how to count mg, goal of 1500 mg daily due to CHF Renal calculi Non obstructive per CT Peptic ulcer of duodenum [facility] [place] upper endoscopy; RX Carafate Female hirsutism Carpal tunnel syndrome, bilateral (12/17/16) Lipoma of arm Heme + stool [facility] [place] GI Endoscopy Peptic Duodenitis (pathology report); repeat hemoccults NEG 11/2019 Folate deficiency Low 12/2018; resolved 05/2019 labs; discontinued 02/05/2020 Iron deficiency [place] 05[place]23/[place] [facility] discont supp iron & vit c 02/05/2020; Hgb stable and iron constipating; she will obtain dietarily YARELY (obstructive sleep apnea) Spinal stenosis, lumbar HTN (hypertension) Insulin dependent diabetes mellitus Edentulous H/O rotator cuff tear H/O fracture of nose h/o elbow fx Adult body mass index 50.0-59.9 Surgical History History of total knee arthroplasty bilateral History of total abdominal hysterectomy and bilateral salpingo-oophorectomy (~02/1999) History of shoulder surgery Right shoulder repair - 2004 History of carpal tunnel repair Left- 1998 Right- 2017 Colonoscopy - MAC (08/14/16) Biopsy, Temporal Artery (01/18/15) DR.C YOUNG History of total bilateral knee replacement Family History Mother Heart disease Father Heart disease Lung cancer Brother Heart disease AAA (abdominal aortic aneurysm, ruptured) Brother Obesity Son No problems noted. Daughter Stillborn, abnormal Daughter No problems noted. 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 Pets and animals: Yes Pets and animals: cat(s) Sexually active: No Do you think of yourself as: straight/heterosexual Current gender identity: female What is your relationship status?: How often do you talk on the phone with friends or family?: once per week How often do you get together with friends or relatives?: once per week Panel score (0-1 are the most socially isolated patients): 0 What type of physical activity do you participate in: none and sedentary lifestyle Special jakob needs: No Agree to transfusion: Yes Seatbelt use: always In current or past relationships, have you been: made to feel afraid Do you feel safe at home: Yes Do you feel safe in your relationship?: Yes Additional Social history: [facility] LAI SANTANA 03/05/23
[2023-03-12] MEDS: Atorvastatin 40 MG TAB 80 MG PO (20:21)
[2023-03-12 20:39] VITALS: PULSE 81; RESP 28; O2SAT 96
--- NOTE | 2023-03-12 21:01 | RESPIRATORY ---
RT seen pt. for YARELY and inspected HU BiPAP machine. Pt. has Trilogy Teja with humidifier. Machine is in good condition to go. Pt. uses O2 4L/mins with it, auto mode: AVAPS AE Passive Nighttime. DME is [facility] per Pt.
[2023-03-13] VITALS (7 sets, daily range): BP systolic 96–123; BP diastolic 52–62; PULSE 64–90; RESP 15–18; TEMP 36–36.6; O2SAT 92–96
[2023-03-13 06:30] LABS: Abs Immature Grans 0.08 10^3/uL (0.0-0.06); Absolute Basophil Count 0.03 10^3/uL (0.0-0.2); Absolute Eosinophil Count 0.59 10^3/uL (0.0-0.7); Absolute Lymphocyte Count 1.38 10^3/uL (1.2-3.4); Absolute Monocyte Count 0.48 10^3/uL (0.1-0.8); Absolute Neutrophil Count 3.41 10^3/uL (1.2-6.7); Basophils % 0.5; Eosinophils % 9.9; HCT 26.3 % (36.0-46.0); HGB 8.3 g/dL (11.2-15.7); Immature Grans % 1.3; Lymphocytes % 23.1; MCH 32.5 pg (27.0-33.0); MCHC 31.6 % (32.0-36.0); MCV 103 fL (80-95); MPV 10.2 fL (8.0-11.0); Neutrophils % 57.2; Nucleated RBC 0.3 % (0.0-0.3); Platelet Count 330 10^3/uL (130-400); RBC 2.55 10^6/uL (3.93-5.22); RDW 16.6 % (11.7-14.6); RDW-SD 61.3 fL; WBC 5.97 10^3/uL (4.4-10.8)
[2023-03-13 06:48] LABS: Anion Gap 8.6 mmol/L (3-11); BUN 74 mg/dL (7-18); CO2 28.4 mmol/L (21.0-32.0); CREATININE 3.2 mg/dL (0.55-1.02); Calcium 8.4 mg/dL (8.5-10.1); Chloride 105 mmol/L (98-107); Estimated GFR 14.46 (mL/min/1.73m2); Glucose 111 mg/dL (74-106); Potassium 4.3 mmol/L (3.5-5.1); Sodium 142 mmol/L (136-145)
[2023-03-13] MEDS: Apixaban 5 MG TAB PO ×2 (08:49→19:57)
[2023-03-13] MEDS: Allopurinol 100 MG TAB PO (08:49)
[2023-03-13] MEDS: Torsemide 20 MG TAB PO (08:49)
[2023-03-13] MEDS: Normal Saline Flush 10 ML SYR IV ×2 (08:50→19:57)
[2023-03-13] MEDS: Acetaminophen 500 MG TAB PO ×2 (09:13→17:50)
--- NOTE | 2023-03-13 09:29 | PT.INTREAT ---
PT Notes Visit Reasons: heart failure,freq falls Inpatient Physical Therapy Treatment Note [facility] Date: 03/13/23 PRECAUTIONS:Standard SUBJECTIVE: Pt reports that she is tired today. OBJECTIVE: ? Direct Treatment Time: [23] min. Total Treatment Time: [23] min. Units Time Duration Manual Therapy (12795) [] [] min. Therapeutic Procedures (02643) [2] [23] min. Neuromuscular (72804) [] [] min. Therapeutic Activity (89327) [] [] min. [] [] [] min. [] [] [] min. Therapeutic Activities (96056z[]): Direct one-on-one instruction in dynamic activities to improve functional performance. ? BED MOBILITY/TRANSFERS? Supine-sit: Max x2? Sit-stand: Modx2? Stand-sit: CGAx2? Provided skilled cues and instruction on performance and technique throughout. ? GAIT? Assistive Device: FWW? Weight bearing: Full Assist: CGA? Distance:? 5 steps to chair ? Therapeutic Exercises (95229t[2]): Direct one-on-one instruction in therapeutic exercises to develop strength, endurance, range of motion and flexibility. ? Exercises ?Seated LAQ x 5 Ankle Pumps x 10 Shoulder horz abd x 5 Rowing x 5 Q.S. x 10 ASSESSMENT:? Pt was very anxious about falling with transfers and walking. Pt has the most difficulty with I transfers. PLAN: Cont as per PT POC. TREATMENT CODE/TIME: 99:23 (23) TE x 2
[2023-03-13 11:30] LABS: Lab Add On Test DONE
[2023-03-13 11:51] LABS: Iron 57 ug/dL (50-170); Total Iron Binding Capacity 159 ug/dL (250-450); Transferrin Sat 36 % (15-50)
[2023-03-13 12:18] LABS: Ferritin 386 ng/mL (8-252); Vitamin B12 928 pg/mL (193-986)
[2023-03-13 12:19] LABS: Folate > 20.0 ng/mL (8.6-20.0)
--- NOTE | 2023-03-13 16:06 | W.PM.PROGNOT ---
Date of Service Date of service: 03/13/23 Time of Service: 16:12 Assessment and Plan Assessment and plan (1) CHF (congestive heart failure): Status: Acute Assessment and plan: responding well to being back on torsemide Echocardiogram limited with no significant changes: Conclusion 1. A technically limited study due to body habitus. 2. Patient in atrial fibrillation with controlled ventricular response during study. 3. Moderately dilated atria, ventricles normal in size. 4. Normal LV systolic function without wall motion abnormality, EF 55-60% 5. Anatomically normal valves. Mild to moderate TR with moderate pulmonary hypertension, 50 mmHg. 6. Dilated IVC suggests volume overload. 7. No pericardial effusion. . continue previous home dose of oral torsemide. Monitor I/O closely, daily weights. 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: with long wall shear operator use Diabetes mellitus complication status: with kidney complications Diabetes mellitus complication detail: with chronic kidney disease Chronic kidney disease stage: stage 4 (severe) Qualified Code(s): E11.22 - Type 2 diabetes mellitus with diabetic chronic kidney disease; N18.4 - Chronic kidney disease, stage 4 (severe); Z79.4 - terminal 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 baseline 2.1-2.6 Continue to monitor closely avoid nephrotoxic drugs, renally dose as needed continue to closely monitor (7) Acute UTI: Status: Acute Assessment and plan: Recently treated with 2 weeks of cephalexin has chronic indwelling Ruiz catheter and probably chronically colonized she is asymptomatic with no fever, encephalopathy, or other complaints of suspected infection so will hold off on antibiotic treatment at this time. She did receive 1 dose this Rocephin and levaquin in the emergency department prior to admission.. no fever overnight discussed with DR Hartmann Subjective Subjective Patient reports: feels better, tolerating liquids well, tolerating a regular diet, voiding w/o difficulty and afebrile; denies shortness of breath Exam Const General: cooperative, comfortable and no acute distress Nutritional Appearance: overweight Orientation: alert, awake and oriented x3 HENMT Head: normal to inspection, normocephalic and atraumatic Mouth: oral mucosae normal Chest Chest: normal inspection of the chest Resp Effort & Inspection: normal respiratory effort Auscultation: diminished lung sounds (bases bilaterally) Cardio Rate: regular rate GI Inspection: normal to inspection Palpation: soft Auscultation: normal bowel sounds Other: nephrostomy tube intact and was present on admission. Intact and draining cloudy concentrated medium yellow urine voids also Neuro General: patient alert, patient awake and patient oriented x3 (at baseline) Cognition: normal cognition Extrem General: normal to inspection and pedal edema Psych Mental Status: mental status grossly normal Speech and Movement: speech and movement normal Mood: congruent mood Affect: normal affect Objective Last Vital Signs Temp 36.1 C L 03/13/23 07:28 Pulse 71 03/13/23 07:28 Resp 17 03/13/23 07:28 BP 96/53 L 03/13/23 07:28 Pulse Ox 92 03/13/23 08:23 Laboratory Results - last 24 hr 03/12/23 03/13/23 05:46 06:10 WBC 5.97 RBC 2.55 L Hgb 8.3 L Hct 26.3 L MCV 103 H MCH 32.5 MCHC 31.6 L RDW 16.6 H Plt Count 330 MPV 10.2 Immature Gran % 1.3 Neutrophils % 57.2 Lymphocytes % 23.1 Monocytes % 8.0 Eosinophils % 9.9 Basophils % 0.5 Nucleated RBC % 0.3 Absolute Neutrophils 3.41 Absolute Lymphocytes 1.38 Absolute Monocytes 0.48 Absolute Eosinophils 0.59 Absolute Basophils 0.03 Sodium 142 Potassium 4.3 Chloride 105 Carbon Dioxide 28.4 Anion Gap 8.6 BUN 74 H Creatinine 3.2 H Est GFR (CKD-EPI 2020) 14.46 Glucose 111 H Calcium 8.4 L Iron 57 TIBC 159 L Transferrin % Sat 36 Ferritin 386 H Vitamin B12 928 Folate > 20.0 H Add-On Test Request DONE Time Spent with Patient Time Spent with Patient: 25-34 minutes Time was spent: preparing to see the patient(eg.review tests), ordering medications,tests, procedures, indepentently interpreting results and counseling the patient
[2023-03-13] MEDS: Atorvastatin 40 MG TAB 80 MG PO (19:57)
[2023-03-14 07:14] VITALS: BP 119/71; PULSE 65; RESP 18; TEMP 35.4; O2SAT 94
[2023-03-14] MEDS: Torsemide 20 MG TAB PO (07:54)
[2023-03-14] MEDS: Apixaban 5 MG TAB PO ×2 (07:54→19:52)
[2023-03-14] MEDS: amLODIPine 5 MG TAB PO (07:54)
[2023-03-14] MEDS: Allopurinol 100 MG TAB PO (07:54)
[2023-03-14] MEDS: Normal Saline Flush 10 ML SYR IV ×2 (07:55→19:53)
[2023-03-14 07:57] VITALS: O2SAT 92
[2023-03-14] MEDS: Acetaminophen 500 MG TAB PO (09:42)
--- NOTE | 2023-03-14 09:57 | PT.INTREAT ---
PT Notes Visit Reasons: heart failure,freq falls Inpatient Physical Therapy Treatment Note [facility] Date: 03/14/23 PRECAUTIONS: SUBJECTIVE: Pt reports that she is tired. Pt reports that her shoulders are sore. OBJECTIVE: ? Direct Treatment Time: [25] min. Total Treatment Time: [25] min. Units Time Duration Manual Therapy (14954) [] [] min. Therapeutic Procedures (23545) [1] [10] min. Neuromuscular (86922) [] [] min. Therapeutic Activity (20185) [1] [15] min. [] [] [] min. [] [] [] min. Therapeutic Activities (04490e[1]): Direct one-on-one instruction in dynamic activities to improve functional performance. ? BED MOBILITY/TRANSFERS? Sit-supine: Modx1 ? Sit-stand: CGA/min assist x2? Stand-sit: CGAx2 ? Provided skilled cues and instruction on performance and technique throughout. ? GAIT? Assistive Device: FWW ? Weight bearing: Full Assist: CGAx2 ? Distance:? 3 steps to commode 3 steps to bed.? Therapeutic Exercises (30270p[1]): Direct one-on-one instruction in therapeutic exercises to develop strength, endurance, range of motion and flexibility. ? Exercises ?Seated LAQ x 10 Seated HR/TR x 10 Seated rowing x 5 Seated bicep curls x 5 Seated hip abd x 10 Supine heel slides x 10 ASSESSMENT:? Pt tolerated today's session fairly well. Pt had most difficulty with bed mobility and transfers. PLAN: Cont as per PT POC. TREATMENT CODE/TIME: :30-9:55 (25) OMARI TE
--- NOTE | 2023-03-14 11:27 | W.PM.PROGNOT ---
Date of Service Date of service: 03/14/23 Time of Service: 11:27 Assessment and Plan Assessment and plan (1) CHF (congestive heart failure): Status: Acute Assessment and plan: responding well to being back on torsemide Echocardiogram limited with no significant changes: Conclusion 1. A technically limited study due to body habitus. 2. Patient in atrial fibrillation with controlled ventricular response during study. 3. Moderately dilated atria, ventricles normal in size. 4. Normal LV systolic function without wall motion abnormality, EF 55-60% 5. Anatomically normal valves. Mild to moderate TR with moderate pulmonary hypertension, 50 mmHg. 6. Dilated IVC suggests volume overload. 7. No pericardial effusion. . continue previous home dose of oral torsemide. Monitor I/O closely, daily weights. Qualifiers: Heart failure chronicity: chronic Heart failure type: unspecified Qualified Code(s): I50.9 - Heart failure, unspecified (2) Obstructive sleep apnea treated with BiPAP: Status: Chronic Assessment and plan: continue home Trelegy unit for use at night as previously directed (3) Type II diabetes mellitus: Status: Chronic Assessment and plan: Diet controlled No monitoring at this time Qualifiers: Chronic kidney disease stage: stage 4 (severe) Diabetes mellitus complication detail: with chronic kidney disease Diabetes mellitus complication status: with kidney complications Diabetes mellitus ore roaster insulin use: with fpc use Qualified Code(s): E11.22 - Type 2 diabetes mellitus with diabetic chronic kidney disease; N18.4 - Chronic kidney disease, stage 4 (severe); 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 baseline 2.1-2.6 Continue to monitor closely avoid nephrotoxic drugs, renally dose as needed continue to closely monitor (7) Acute UTI: Status: Acute Assessment and plan: Recently treated with 2 weeks of cephalexin has chronic indwelling Ruiz catheter and probably chronically colonized she is asymptomatic with no fever, encephalopathy, or other complaints of suspected infection so will hold off on antibiotic treatment at this time. She did receive 1 dose this Rocephin and levaquin in the emergency department prior to admission.. no fever overnight discussed with DR Rodríguez Subjective Subjective Patient reports: no new complaints Exam Const General: cooperative, comfortable and no acute distress Nutritional Appearance: overweight Orientation: alert, awake and oriented x3 HENMT Head: normal to inspection, normocephalic and atraumatic Mouth: oral mucosae normal Chest Chest: normal inspection of the chest Resp Effort & Inspection: normal respiratory effort Auscultation: diminished lung sounds (bases bilaterally) Cardio Rate: regular rate GI Inspection: normal to inspection Palpation: soft Auscultation: normal bowel sounds Other: nephrostomy tube intact and was present on admission. Intact and draining cloudy concentrated medium yellow urine voids also Neuro General: patient alert, patient awake and patient oriented x3 (at baseline) Cognition: normal cognition Extrem General: normal to inspection and pedal edema Psych Mental Status: mental status grossly normal Speech and Movement: speech and movement normal Mood: congruent mood Affect: normal affect Objective Last Vital Signs Temp 35.4 C L 03/14/23 07:14 Pulse 65 03/14/23 07:14 Resp 18 03/14/23 07:14 BP 119/71 03/14/23 07:14 Pulse Ox 92 03/14/23 07:57 Laboratory Results - last 24 hr 03/12/23 03/13/23 05:46 06:10 Iron 57 TIBC 159 L Transferrin % Sat 36 Ferritin 386 H Vitamin B12 928 Folate > 20.0 H Add-On Test Request DONE Time Spent with Patient Time Spent with Patient: 25-34 minutes Time was spent: preparing to see the patient(eg.review tests), obtaining and/or reviewing separately otained hiistory, ordering medications,tests, procedures, indepentently interpreting results and counseling the patient
[2023-03-14 15:31] VITALS: BP 119/68; PULSE 63; RESP 20; TEMP 36.6; O2SAT 95
[2023-03-14] MEDS: diphenhydrAMINE 25 MG CAP PO (19:01)
[2023-03-14] MEDS: Atorvastatin 40 MG TAB 80 MG PO (19:52)
[2023-03-14 22:41] VITALS: BP 129/72; PULSE 75; RESP 18; TEMP 35.9; O2SAT 94
[2023-03-15 06:14] LABS: Abs Immature Grans 0.06 10^3/uL (0.0-0.06); Absolute Basophil Count 0.05 10^3/uL (0.0-0.2); Absolute Eosinophil Count 0.66 10^3/uL (0.0-0.7); Absolute Lymphocyte Count 1.99 10^3/uL (1.2-3.4); Absolute Monocyte Count 0.57 10^3/uL (0.1-0.8); Basophils % 0.7; Eosinophils % 9.3; HCT 27.4 % (36.0-46.0); HGB 8.7 g/dL (11.2-15.7); Immature Grans % 0.8; Lymphocytes % 27.9; MCH 32.5 pg (27.0-33.0); MCHC 31.8 % (32.0-36.0); MCV 102 fL (80-95); MPV 9.9 fL (8.0-11.0); Neutrophils % 53.3; Platelet Count 318 10^3/uL (130-400); RBC 2.68 10^6/uL (3.93-5.22); RDW 17.5 % (11.7-14.6); RDW-SD 63.2 fL; WBC 7.13 10^3/uL (4.4-10.8)
[2023-03-15 06:29] LABS: Anion Gap 5.7 mmol/L (3-11); BUN 62 mg/dL (7-18); CO2 30.3 mmol/L (21.0-32.0); CREATININE 2.5 mg/dL (0.55-1.02); Calcium 8.9 mg/dL (8.5-10.1); Chloride 106 mmol/L (98-107); Estimated GFR 19.44 (mL/min/1.73m2); Glucose 145 mg/dL (74-106); Sodium 142 mmol/L (136-145)
[2023-03-15 07:09] VITALS: BP 121/72; PULSE 79; RESP 22; TEMP 35.9; O2SAT 91
[2023-03-15] MEDS: Allopurinol 100 MG TAB PO (07:29)
[2023-03-15] MEDS: Acetaminophen 500 MG TAB PO (07:29)
[2023-03-15] MEDS: Apixaban 5 MG TAB PO (07:29)
[2023-03-15] MEDS: amLODIPine 5 MG TAB PO (07:29)
[2023-03-15] MEDS: diphenhydrAMINE 25 MG CAP PO (07:29)
[2023-03-15] MEDS: Torsemide 20 MG TAB PO (07:29)
[2023-03-15] MEDS: Normal Saline Flush 10 ML SYR IV (07:30)
--- NOTE | 2023-03-15 10:22 | PT.INTREAT ---
PT Notes Visit Reasons: heart failure,freq falls Date: 03/15/23 PRECAUTIONS: Fall, standard, activity as tolerated. SUBJECTIVE: pt in recliner when approached for therapy this morning, pt agreed to participating with gait training as long as there is a WC follow. OBJECTIVE: Sitting up in bedside chair, Ruiz catheter in place, 4L supplemental O2 via high flow mask. [place] alarm in place and active. ? PAIN: wound pain which is located on pt sacral area. VITALS: monitored by nursing staff. Therapeutic Activities (77955c8): Direct one-on-one instruction in dynamic activities to improve functional performance. ? BED MOBILITY/TRANSFERS? Rolling L/R: not assessed Supine-sit: not assessed ? Sit-supine: not assessed ? Sit-stand : mod assist ? Stand-sit : CGA? Bed-Chair: not assessed ? Chair-bed: not assessed GAIT? Assistive Device: FWW? Weight bearing: Full Assist: CGA/min A ? Distance:? 10', 15' ? Deviation: generalized body malaise, apprehensive, Cueing for increased step length, slow pacing Provided skilled cues and instruction on performance and technique throughout. ASSESSMENT:? pt able to complete activity with the knowledge that the WC was there the whole time if she needed it, pt had to be transferred via steady lift on return to the recliner since pt reports she will not get repositioned the right way since she doesnt have the capability to move in recline despite education on how to effectively transfer using BUE and weight shifting side to side in small increments to achieve prime positioning, pt required max A +2 to get boosted up in the recliner. PLAN: continue global strengthening per plan of care until patient is medically cleared for discharge and obtains safe discharge plan. TREATMENT CODE/TIME: [id number] 25 mins (9:40-10:05am)
--- NOTE | 2023-03-15 13:16 | W.PM.DS.N ---
Date of service: 03/15/23 Time of Service: 13:16 DS: Diagnosis Discharge Diagnosis (1) CHF (congestive heart failure): Status: Acute (2) Obstructive sleep apnea treated with BiPAP: Status: Chronic (3) Type II diabetes mellitus: Status: Chronic (4) Generalized weakness: Status: Acute (5) Chronic anticoagulation: Status: Chronic (6) JOY (acute kidney injury): Status: Acute (7) Acute UTI: Status: Acute Discharge Plan Disposition Patient Disposition: Home W/Home Health Services Condition: Improving Discharge Details Reason For Visit: heart failure,freq falls Admit Date/Time: 03/11/23 18:53 Admit Provider: Sid Hartmann Attending Provider: Sid Hartmann Primary Care Provider: Laverne Sung Hospital Course Hospital Course: This is a 77-year-old female patient complex medical history who was just released 03/04 from [facility] and rehab where she was for a month, states she has been without her trelogy and they told her to stop her diuretic. She had multiple mechanical falls at home due to increased weakness bilaterally. EMS was called to the house multiple times and despite no injury and her not wanting to be transported the last call the did transport her to the emergency department for evaluation. There were no injuries noted from her fall with negative imaging. Labs did show acute on chronic renal failure. Her physical exam also concerning for some mild fluid overload. She had no complaints of chest pain or shortness of breath her work up in the ED ruled out concern for nephrostomy tube dysfunction. case discussed with DR morton, no intervention needed at this time. Because patient appeared mildly fluid overload and received her usual torsemide dose with some diuresis effect, she does deny sob, cp cough or edema. limited echo does support fluid overload. She was admitted to the hospitalist service for further management. She responded to diuresis with her creatinine improving to baseline from 3.8 down to 2.5. She was working with physical therapy and safely really ambulated with discharge recommendations for home health services. She is chronically on oxygen with no increased oxygen requirements. Nephrostomy tube is draining appropriately. She is voicing no complaints and has been hemodynamically stable she is eating and drinking bowels function she does also avoid in addition to the nephrostomy tube. She is being discharged to home with resumption of home health services including nursing PT OT. She was advised to continue her torsemide as previously directed. She was also given her monthly B12 injection prior to discharge. discharge discussed with DR Rodríguez Home Meds and New Rx's Prescriptions: Continued (DME) 3XL incontinence briefs See Rx Instructions .Route .MEDSUPPLY Qty: 30 2RF Rx Instructions: Uses one nightly at bedtime for urge incontinence acetaminophen [Tylenol Extra Strength] 500 mg tablet 500 mg PO Q6H PRN (DME) BD Eclipse Luer-Timi 3 mL 23 x 1 syringe See Rx Instructions .ROUTE .MEDSUPPLY Qty: 15 0RF Rx Instructions: for use with monthly self administered B12 injections docusate sodium [Colace] 100 mg capsule 100 mg PO BID PRN allopurinol 100 mg tablet 100 mg PO DAILY Qty: 90 3RF Rx Instructions: Gout prevention (DME) Oxygen Tank See Rx Instructions .ROUTE .MEDSUPPLY Qty: 1 0RF Rx Instructions: 2-5L via NC continuous atorvastatin 80 mg tablet 80 mg PO QHS Qty: 90 3RF Hold Instructions: per pt she was told not to take it anymore Rx Instructions: Cholesterol (DME) Wheelchair See Rx Instructions .Route .MEDSUPPLY Qty: 1 0RF Rx Instructions: As directed (DME) pen needle, diabetic [BD Ultra-Fine Mini Pen Needle] 31 gauge x 3/16 needle See Rx Instructions .ROUTE .MEDSUPPLY Qty: 100 6RF Rx Instructions: for insulin administration qid dx E11.22 #360 Refill 3 amlodipine 5 mg tablet 5 mg PO DAILY Qty: 90 3RF Rx Instructions: Blood pressure Eliquis 5 mg tablet 5 mg PO BID Qty: 180 3RF Hold Instructions: Resume on 11/15/22. (DME) FreeStyle Bradley 2 Sensor Kit See Rx Instructions .ROUTE .MEDSUPPLY Qty: 2 11RF Rx Instructions: As directed; on insulin AC & HS for goal A1C 8% sodium chloride 0.9 % (flush) Syringe 10 ml IV BID Rx Instructions: Flush Nephrostomy tube BID polyethylene glycol 3350 [ClearLax] 17 gram/dose powder 17 g PO DAILY PRN folic acid 1 mg tablet 1 mg PO DAILY magnesium hydroxide [Dulcolax (magnesium hydroxide)] 400 mg/5 mL suspension 30 ml PO DAILY PRN torsemide 20 mg tablet 20 mg PO DAILY MDD 120mg/24h ondansetron 4 mg tablet,disintegrating 4 mg PO QD-BID PRN bismuth subsalicylate [Anti-Diarrheal] 262 mg/15 mL suspension 524 mg PO QID Sacch boulardi-Bacill coag-FOS 471 mg capsule 1 cap PO DAILY Discharge Instructions Instructions: Heart Failure (DC) Additional Instructions: please make sure you continue taking your torsemide as directed. use walker at all times for gait safety and stability we have given you your monthly B12 injection prior to discharge. continue nephrostomy tube management as previously directed. we will resume home health nursing, PT/OT for routine care, medication oversight, disease monitoring, evaluation and treatment. home safety and gait stability and training, fall prevention Stand Alone Forms: Nursing Discharge Form Referrals: Laverne Sung [facility] [Primary Care Provider] - (call Wednesday and make an appointment in the next 1-2 weeks ) Activity:: Activity as Tolerated Equipment/Supplies:: No Equipment Needed Diet:: As Tolerated Discharge Orders Discharge Orders: Discharge Order (Routine); Ordered 03/15/23 Ordered By: Myah Victor Discharge Data Discharge Date/Time-TO BE ENTERED AT DEPARTURE: 03/15/23 14:23 DS: Summary Time Spent with Patient providing and/or coordinating discharge services: Greater than 30 minutes Status at Discharge Functional status at discharge: independent ambulation Overall status at discharge: patient is back to baseline Mental Status: mental status grossly normal Speech and Movement: speech and movement normal Mood: congruent mood Affect: normal affect Exam Const General: cooperative, comfortable and no acute distress Nutritional Appearance: overweight Orientation: alert, awake and oriented x3 HENMT Head: normal to inspection, normocephalic and atraumatic Mouth: oral mucosae normal Chest Chest: normal inspection of the chest Resp Effort & Inspection: normal respiratory effort Auscultation: diminished lung sounds (bases bilaterally) Cardio Rate: regular rate GI Inspection: normal to inspection Palpation: soft Auscultation: normal bowel sounds Other: nephrostomy tube intact and was present on admission. Intact and draining cloudy concentrated medium yellow urine voids also Neuro General: patient alert, patient awake and patient oriented x3 (at baseline) Cognition: normal cognition Extrem General: normal to inspection and pedal edema Psych Mental Status: mental status grossly normal Speech and Movement: speech and movement normal Mood: congruent mood Affect: normal affect DS: Data Vitals/I&O Vitals and I&O: Vital Signs Temperature 35.9 C L 03/15/23 07:09 Temperature Source Tympanic 03/15/23 07:09 Pulse 79 03/15/23 07:09 Pulse Rhythm Regular 03/15/23 07:20 Pulse 81 03/11/23 18:32 Respiratory Rate 22 03/15/23 07:09 Respiratory Effort Normal, Non-Labored 03/15/23 07:20 Respiratory Depth Normal 03/15/23 07:20 Respiratory Pattern Normal 03/15/23 07:20 Blood Pressure 121/72 03/15/23 07:09 Blood Pressure Mean 63 03/11/23 18:32 Blood Pressure Position Sitting 03/11/23 08:45 Pulse Oximetry 91 L 03/15/23 07:09 Oxygen Delivery Method Nasal Cannula 03/15/23 07:09 Oxygen Flow Rate 4 03/15/23 07:09 Fraction of Inspired Oxygen (FIO2) 40 03/12/23 01:13 Pain Level 3 03/15/23 07:29 Comment Pain located in wounds on bottom 03/12/23 15:12 Intake & Output 03/14/23 03/15/23 03/15/23 23:59 11:59 23:59 Intake Total 120 / 360 260 / 510 250 / 510 Output Total 625 / 1625 700 / 1000 300 / 1000 Balance -505 / -1265 -440 / -490 -50 / -490 Intake: IV 10 / 10 Oral 120 / 360 250 / 500 250 / 500 Output: Urine 625 / 1625 700 / 1000 300 / 1000 Other: Urine Color Pale Yellow Yellow Urine Appearance Clear Clear Clear Stool Size Small Small Stool Characteristics Soft Soft Formed Brown Brown Voiding Methods Bedside Commode Bedside Commode Data Completed and Pending Labs on day of discharge: Labs from last 24 hours 03/15/23 05:26 WBC 7.13 RBC 2.68 L Hgb 8.7 L Hct 27.4 L MCV 102 H MCH 32.5 MCHC 31.8 L RDW 17.5 H Plt Count 318 MPV 9.9 Immature Gran % 0.8 Neutrophils % 53.3 Lymphocytes % 27.9 Monocytes % 8.0 Eosinophils % 9.3 Basophils % 0.7 Nucleated RBC % 0.0 Absolute Neutrophils 3.80 Absolute Lymphocytes 1.99 Absolute Monocytes 0.57 Absolute Eosinophils 0.66 Absolute Basophils 0.05 Sodium 142 Potassium 4.0 Chloride 106 Carbon Dioxide 30.3 Anion Gap 5.7 BUN 62 H Creatinine 2.5 H Est GFR (CKD-EPI 2020) 19.44 Glucose 145 H Calcium 8.9 Preliminary micro results at discharge 03/11/23 15:20 Blood Culture - Preliminary Blood NO GROWTH 72 HOURS 03/11/23 11:50 Blood Culture - Preliminary Blood NO GROWTH 72 HOURS PFSH All Active Problems (Updated 03/11/23 @ 21:37 by Myah Victor NP) Fall (Acute) Generalized weakness (Acute) Closed stable burst fracture of ninth thoracic vertebra (Acute) [facility] [place] [facility]-03/01/23 Acute UTI (Acute) Advance care planning (Acute) Right thyroid nodule (Acute ~11/2022) JOY (acute kidney injury) (Acute) CKD (chronic kidney disease) (Chronic) At high risk for skin breakdown (Acute) Impaired instrumental activities of daily living (Acute) Deficit in activities of daily living (ADL) (Acute) Hyperuricemia (Acute) Bradycardia (Acute) Gout (Chronic) CKD stage 4 due to type 2 diabetes mellitus (Acute) Respiratory failure with hypoxia and hypercapnia (Acute) Obstructive sleep apnea treated with BiPAP (Chronic) CHF (congestive heart failure) (Acute 02/23/14) Preserved EF (10/2020 & 08/2021 ECHO) Obstructive sleep apnea (Chronic 02/23/14) Sleep Med Referral, 04/17/2019-->Very severe YARELY; CPAP ([employer]) with continuous O2, new Panda C-Pap 01/2021 Type II diabetes mellitus (Chronic) Hypertension (Chronic) Hyperlipidemia (Chronic) Atrial fibrillation (Chronic) Apixaban Anemia (Chronic) Pulmonary hypertension (Chronic) Dependence on supplemental oxygen (Chronic) YARELY + Pulm HTN Palliative care status (Chronic) Full code status (Chronic) Chronic low back pain (Chronic 07/24/15) CT-lumbar spine 2019-- Severe multilevel degenerative changes in the lumbar spine resulting in neural foraminal and central spinal canal stenosis. Chronic anticoagulation (Chronic) AF--Apixaban Risk for falls (Chronic) Sedentary lifestyle (Chronic) B12 deficiency (Chronic) Start B12 injections; elevated MCV Chronic respiratory failure with hypercapnia (Chronic) Obesity hypoventilation syndrome (Chronic) Obesity + Severe YARELY + Chronic Hypercapnia Dependent on walker for ambulation (Chronic) Hypomagnesemia (Acute ~07/2021) Mild mitral valve regurgitation (Acute ~08/2021) ECHO Trace tricuspid valve regurgitation (Acute ~08/2021) ECHO Medical History Diverticulosis Knee pain, left Pressure sore on buttocks Trigger finger, right middle finger Injection: 05/04/2022 Right carpal tunnel syndrome Lipoma Restrictive lung disease (~03/2014) PFTs validated 04/04/2014-->see scanned docs Gout attack (~10/2020) R podagra, first attack 10/2020-->treated with colchine, effective Sciatica of right side without back pain RX Medrol Dietary counseling reviewed sodium levels in her food, how to count mg, goal of 1500 mg daily due to CHF Renal calculi Non obstructive per CT Peptic ulcer of duodenum [facility] [place] Path reports upper endoscopy; RX Carafate Female hirsutism Carpal tunnel syndrome, bilateral (12/17/16) Lipoma of arm Heme + stool [facility] [place] Upper GI Endoscopy Peptic Duodenitis (pathology report); repeat hemoccults NEG 11/2019 Folate deficiency Low 12/2018; resolved 05/2019 labs; discontinued 02/05/2020 Iron deficiency EGD 05/23/19 at [facility] [place]; discont supp iron & vit c 02/05/2020; Hgb stable and iron constipating; she will obtain dietarily YARELY (obstructive sleep apnea) Spinal stenosis, lumbar HTN (hypertension) Insulin dependent diabetes mellitus Edentulous H/O rotator cuff tear H/O fracture of nose h/o elbow fx Adult body mass index 50.0-59.9 Surgical History History of total knee arthroplasty bilateral History of total abdominal hysterectomy and bilateral salpingo-oophorectomy (~02/1999) History of shoulder surgery Right shoulder repair - 2004 History of carpal tunnel repair Left- 1998 Right- 2018 Colonoscopy - MAC (08/14/16) Biopsy, Temporal Artery (01/18/15) DR.C YOUNG History of total bilateral knee replacement Family History Mother Heart disease Father Heart disease Lung cancer Brother Heart disease AAA (abdominal aortic aneurysm, ruptured) Brother Obesity Son No problems noted. Daughter Stillborn, abnormal Daughter No problems noted. Social History Smoking/Tobacco Use Status: Never Second Hand Exposure: Yes Smoking risk assessment performed?: Yes Alcohol Intake: former Details: never drank heavily but her husbands did Drug use: Never Substance use type: does not use Adopted: No Caregiver/Support person: Yes Foster care: No Household members: children Housing: house Number of Children: 2 number of grandchildren: 8 Communication Needs: Corrective Lenses Education Level: middle school Do you need help understanding health information?: Always current occupation: Retired- [employer] Pets and animals: Yes Pets and animals: cat(s) Sexually active: No Do you think of yourself as: straight/heterosexual Current gender identity: female What is your relationship status?: How often do you talk on the phone with friends or family?: once per week How often do you get together with friends or relatives?: once per week Panel score (0-1 are the most socially isolated patients): 0 What type of physical activity do you participate in: none and sedentary lifestyle Special jakob needs: No Agree to transfusion: Yes Seatbelt use: always In current or past relationships, have you been: made to feel afraid Do you feel safe at home: Yes Do you feel safe in your relationship?: Yes Additional Social history: [facility]. LAI SANTANA 03/05/23 Time Spent with Patient Time Spent with Patient: 45-69 minutes Time was spent: preparing to see the patient(eg.review tests), obtaining and/or reviewing separately otained hiistory, ordering medications,tests, procedures, indepentently interpreting results, counseling the patient and care coordination
[2023-03-15] MEDS: Cyanocobalamin 1000 MCG/ML VIAL IM/SC (13:35)
== END 2023-03-15 14:23 | disposition home health service (06) | DRG 292 ==
LOC: ER 15:29 → MS 20:15
PROVIDERS: Registered Nurse Emergency; Admitting Provider Internal Medicine; Emergency Provider Nurse Practitioner Acute Care; PCP Nurse Practitioner Adult Health; Visit Provider Internal Medicine
DX: I13.0 Hypertensive heart and chronic kidney disease with heart failure and stage 1 through stage 4 chronic kidney disease, or unspecified chronic kidney disease (principal); N17.9 Acute kidney failure, unspecified; N18.4 Chronic kidney disease, stage 4 (severe); N39.0 Urinary tract infection, site not specified; I50.9 Heart failure, unspecified; G47.33 Obstructive sleep apnea (adult) (pediatric); E11.22 Type 2 diabetes mellitus with diabetic chronic kidney disease; Z79.4 Long term (current) use of insulin; R53.1 Weakness; Z79.01 Long term (current) use of anticoagulants; Z93.6 Other artificial openings of urinary tract status; R00.1 Bradycardia, unspecified; M10.9 Gout, unspecified; D64.9 Anemia, unspecified; I27.20 Pulmonary hypertension, unspecified; Z99.81 Dependence on supplemental oxygen; M89.29 Other disorders of bone development and growth, multiple sites; M54.50 Low back pain, unspecified; E78.5 Hyperlipidemia, unspecified; I48.91 Unspecified atrial fibrillation; Z91.81 History of falling; E53.8 Deficiency of other specified B group vitamins; E83.42 Hypomagnesemia; I34.0 Nonrheumatic mitral (valve) insufficiency; Z96.653 Presence of artificial knee joint, bilateral; R29.6 Repeated falls; E66.9 Obesity, unspecified; Z68.37 Body mass index [BMI] 37.0-37.9, adult
CPT/HCPCS: 00123; 36415; 71250; 73552; 76770; 80048; 80053; 82805; 87040; 87637; 93308; 96361; 96365; 97110; 97162; 97530; 99285; 72170; 74176; 81003; 81015; 82607; 82728; 82746; 83540; 83550; 83735; 83880; 85025; 85610; 85730; 87086; 94660; 99223; 99233; 99239; J0696; J3420; J3490

== ENCOUNTER 2023-04-08 16:22 | Outpatient (REF) | payer MEDICARE, SELFPAY ==
[2023-04-08 16:36] LABS: Bilirubin Negative (Negative); Blood Large (Negative); Clarity Turbid (Clear); Glucose Negative (Negative); Ketones Negative (Negative); Leukocyte Esterase Moderate (Negative); Nitrite Negative (Negative); Specific Gravity 1.015 (1.005-1.025); Urobilinogen 0.2 mg/dL (Up to 0.2); pH 5.5 (5-8)
[2023-04-08 16:43] LABS: C & S Indicated? Yes; WBC >50 HPF (0-5)
== END 2023-04-08 16:23 | disposition home or self-care (01) ==
LOC: LBN 16:22
PROVIDERS: PCP Nurse Practitioner Adult Health; Visit Provider Nurse Practitioner Adult Health
DX: R30.0 Dysuria (principal); N39.0 Urinary tract infection, site not specified
CPT/HCPCS: 87077; 81003; 81015; 87086; 87186

== ENCOUNTER 2023-08-26 20:34 | Outpatient (REF) | payer MEDICARE, SELFPAY ==
[2023-08-26 19:54] LABS: Hemoglobin A1C 7.9 % (<5.7)
[2023-08-26 19:56] LABS: Anion Gap 4.3 mmol/L (3-11); BUN 53 mg/dL (7-18); CO2 38.7 mmol/L (21.0-32.0); Calcium 9.9 mg/dL (8.5-10.1); Calculated LDL 68 mg/dL (<100); Chloride 101 mmol/L (98-107); Cholesterol 137 mg/dL (<200); Estimated GFR 25.41 (mL/min/1.73m2); Glucose 122 mg/dL (74-106); HDL Cholesterol 49 mg/dL (40-60); Magnesium 1.7 mg/dL (1.8-2.4); Potassium 4.6 mmol/L (3.5-5.1); Sodium 144 mmol/L (136-145); Triglyceride 104 mg/dL (<150); Vitamin B12 612 pg/mL (193-986)
[2023-08-26 20:06] LABS: Folate > 20.0 ng/mL (8.6-20.0)
[2023-08-26 20:26] LABS: Uric Acid 7.8 mg/dL (2.6-6.0)
== END 2023-08-26 20:35 | disposition home or self-care (01) ==
LOC: LBN 20:34
PROVIDERS: PCP Nurse Practitioner Adult Health; Visit Provider Nurse Practitioner Adult Health
DX: I10 Essential (primary) hypertension (principal); I50.9 Heart failure, unspecified; E78.5 Hyperlipidemia, unspecified; E11.22 Type 2 diabetes mellitus with diabetic chronic kidney disease; N18.4 Chronic kidney disease, stage 4 (severe); Z79.4 Long term (current) use of insulin; E53.8 Deficiency of other specified B group vitamins; M10.271 Drug-induced gout, right ankle and foot; E83.42 Hypomagnesemia
CPT/HCPCS: 80048; 80061; 82607; 82746; 83036; 83735; 84550

== ENCOUNTER → 2023-09-07 14:53 | Outpatient (BNVA) | payer MEDICARE, MEDICAID, SELFPAY | PROVIDERS: PCP Nurse Practitioner Adult Health; Referring Provider Nurse Practitioner Adult Health; Visit Provider Physician Assistant Surgical | DX: J96.12 Chronic respiratory failure with hypercapnia (principal); E66.2 Morbid (severe) obesity with alveolar hypoventilation | CPT/HCPCS: 99214 ==

== ENCOUNTER → 2023-12-28 13:14 | Outpatient (BNVA) | payer MEDICARE, MEDICAID, SELFPAY | PROVIDERS: PCP Nurse Practitioner Adult Health; Referring Provider Nurse Practitioner Adult Health; Visit Provider Physician Assistant Surgical | DX: J96.12 Chronic respiratory failure with hypercapnia (principal); E66.2 Morbid (severe) obesity with alveolar hypoventilation | CPT/HCPCS: 99214 ==

== ENCOUNTER → 2024-01-04 10:12 | Outpatient (BNVA) | payer MEDICARE, MEDICAID, SELFPAY | PROVIDERS: PCP Nurse Practitioner Adult Health; Referring Provider Student in an Organized Health Care Education/Training Program; Visit Provider Nurse Practitioner Adult Health | DX: R20.2 Paresthesia of skin (principal); E66.9 Obesity, unspecified; Z68.41 Body mass index [BMI] 40.0-44.9, adult; I10 Essential (primary) hypertension; I50.9 Heart failure, unspecified; E11.9 Type 2 diabetes mellitus without complications; I48.91 Unspecified atrial fibrillation | CPT/HCPCS: 95908; 99215 ==

== ENCOUNTER → 2024-01-24 14:21 | Outpatient (BNVA) | payer MEDICARE, MEDICAID, SELFPAY | PROVIDERS: PCP Nurse Practitioner Adult Health; Referring Provider Nurse Practitioner Adult Health; Visit Provider Student in an Organized Health Care Education/Training Program | DX: G56.01 Carpal tunnel syndrome, right upper limb (principal); M65.331 Trigger finger, right middle finger | CPT/HCPCS: 20605; 99213; J1010 ==

== ENCOUNTER 2024-04-10 16:26 | Outpatient (CLI) | payer MEDICARE, MEDICAID, SELFPAY ==
[2024-04-10 14:22] LABS: Bilirubin Negative (Negative); Blood Trace-lysed (Negative); Clarity Cloudy (Clear); Glucose 250 mg/dL (Negative); Ketones Negative (Negative); Leukocyte Esterase Moderate (Negative); Nitrite Negative (Negative); Urobilinogen 0.2 mg/dL (Up to 0.2); pH 5.5 (5-8)
[2024-04-10 14:28] LABS: C & S Indicated? Yes; WBC >50 HPF (0-5)
[2024-04-10 14:29] LABS: Hemoglobin A1C 7.5 % (<5.7)
[2024-04-10 15:16] LABS: Anion Gap 1.7 mmol/L (3-11); BUN 54 mg/dL (7-18); CO2 40.3 mmol/L (21.0-32.0); CREATININE 2.4 mg/dL (0.55-1.02); Chloride 102 mmol/L (98-107); Estimated GFR 20.29 (mL/min/1.73m2); Glucose 127 mg/dL (74-106); Magnesium 1.9 mg/dL (1.8-2.4); Potassium 4.6 mmol/L (3.5-5.1); Sodium 144 mmol/L (136-145); TSH (W/Ref FT4) 2.06 uIU/mL (0.36-3.74); Uric Acid 6.7 mg/dL (2.6-6.0)
[2024-04-10 15:56] LABS: Calculated LDL 55 mg/dL (<100); Cholesterol 122 mg/dL (<200); HDL Cholesterol 50 mg/dL (40-60); Triglyceride 87 mg/dL (<150); Vitamin B12 851 pg/mL (193-986)
== END 2024-04-10 16:27 | disposition home or self-care (01) ==
LOC: LBO 16:28
PROVIDERS: PCP Nurse Practitioner Adult Health; Visit Provider Nurse Practitioner Adult Health
DX: I10 Essential (primary) hypertension (principal); I48.91 Unspecified atrial fibrillation; E11.22 Type 2 diabetes mellitus with diabetic chronic kidney disease; N18.4 Chronic kidney disease, stage 4 (severe); Z79.4 Long term (current) use of insulin; E53.8 Deficiency of other specified B group vitamins; E83.42 Hypomagnesemia; R30.0 Dysuria; E04.1 Nontoxic single thyroid nodule
CPT/HCPCS: 36415; 80048; 80061; 87077; 81003; 81015; 82607; 83036; 83735; 84443; 84550; 87086; 87186

== ENCOUNTER → 2024-05-16 13:54 | Outpatient (BNVA) | payer MEDICARE, MEDICAID, SELFPAY | PROVIDERS: PCP Nurse Practitioner Adult Health; Referring Provider Nurse Practitioner Adult Health; Visit Provider Podiatrist | DX: E11.42 Type 2 diabetes mellitus with diabetic polyneuropathy (principal); R60.0 Localized edema; M79.2 Neuralgia and neuritis, unspecified; Z87.828 Personal history of other (healed) physical injury and trauma; N18.9 Chronic kidney disease, unspecified; I50.22 Chronic systolic (congestive) heart failure; M79.674 Pain in right toe(s); M79.675 Pain in left toe(s) | CPT/HCPCS: 99204 ==

== ENCOUNTER 2024-05-22 13:42 | Inpatient (IN) | payer MEDICARE, MEDICAID, SELFPAY ==
[2024-05-22] VITALS (41 sets, daily range): BP systolic 99–143; BP diastolic 45–70; PULSE 68–105; RESP 5–29; TEMP 36.7–36.9; O2SAT 85–95
--- NOTE | 2024-05-22 13:30 | RT.EKG_ITS ---
APPROVED REPORT Exam: Resting ECG Reason for Exam: SOB/hypoxia Patient Location: E HR:85 bpm ECG Measurements Heart Rate 85 AXIS NV [id number] P [id number] QRSd 82 QRS -79 QT 354 T 29 QTc 421 Conclusion Atrial fibrillation...V-rate 68- 93, irreg A-activity Inferior infarct, old...Q >35mS, II III aVF Anteroseptal infarct, age indeterminate...Q >35mS, T neg, V1-V2
[2024-05-22 14:22] LABS: BE (Venous) 12 mmol/L (-2-3); HCO3 (Venous) 39 mmol/L (23-28); O2 Sat (Venous) 51 %; TCO2 (Venous) 37 mmol/L (24-29); pH (Venous) 7.29 (7.31-7.41); pO2 (Venous) 31 mmHg
[2024-05-22 14:24] LABS: Abs Immature Grans 0.02 10^3/uL (0.0-0.06); Absolute Basophil Count 0.03 10^3/uL (0.0-0.2); Absolute Eosinophil Count 0.34 10^3/uL (0.0-0.7); Absolute Lymphocyte Count 1.32 10^3/uL (1.2-3.4); Absolute Monocyte Count 0.54 10^3/uL (0.1-0.8); Absolute Neutrophil Count 4.74 10^3/uL (1.2-6.7); Basophils % 0.4 %; Eosinophils % 4.9 %; HCT 34.9 % (36.0-46.0); HGB 10.4 g/dL (11.2-15.7); Immature Grans % 0.3 %; Lymphocytes % 18.9 %; MCH 31.3 pg (27.0-33.0); MCHC 29.8 % (32.0-36.0); MCV 105 fL (80-95); Monocytes % 7.7 %; Neutrophils % 67.8 %; Nucleated RBC 0.3 % (0.0-0.3); Platelet Count 184 10^3/uL (130-400); RBC 3.32 10^6/uL (3.93-5.22); RDW 20.5 % (11.7-14.6); RDW-SD 79.3 fL; WBC 6.99 10^3/uL (4.4-10.8); pCO2 (Venous) 81 mmHg (41-51)
--- NOTE | 2024-05-22 14:27 | DI.RAD_ITS ---
Exam(s) XR PORTABLE CHEST AP EXAM: XR PORTABLE CHEST AP CLINICAL HISTORY: dyspnea. TECHNIQUE: 2D digital imaging was performed. COMPARISON: CR XR CHEST 2V PA LATERAL from 12/01/[address] CHEST/ABD/PEL WO from 03/11/2023 FINDINGS: Single AP portable view. Heart size is upper normal. The mediastinum is not widened. There increased markings in both lung saucedo. There is also nodular infiltrate in the mid left lung left parahilar region measuring approximately 1.7 x 1.2 cm. There are no pleural effusions IMPRESSION: Increased bilateral lung markings + nodular density in the mid left lung field measuring 17 x 12 mm No obvious pleural effusions evident on this single AP portable view. DATA REPOSITORY: RADIATION DOSE DELIVERED:
[2024-05-22 14:44] LABS: Anisocytosis 2+; Diff Comment RBC Morph Reviewed; Macrocytosis 1+; Polychromasia Present
[2024-05-22 14:45] LABS: Poikilocytes 1+
[2024-05-22 14:51] LABS: ALT 15 U/L (14-59); AST 17 U/L (15-37); Albumin 3.2 g/dL (3.4-5.0); Alkaline Phosphatase 75 U/L (46-116); BUN 71 mg/dL (7-18); Bilirubin, Total 0.4 mg/dL (0.2-1.0); CREATININE 2.8 mg/dL (0.55-1.02); Calcium 9.6 mg/dL (8.5-10.1); Chloride 100 mmol/L (98-107); Estimated GFR 16.87 (mL/min/1.73m2); Glucose 162 mg/dL (74-106); Magnesium 2.1 mg/dL (1.8-2.4); NT-proBNP 6295 pg/mL (<300); Potassium 4.7 mmol/L (3.5-5.1); Sodium 142 mmol/L (136-145); Total Protein 7.6 g/dL (6.4-8.2)
[2024-05-22 14:53] LABS: Troponin I 136 ng/L (<or=51)
--- NOTE | 2024-05-22 15:38 | ED.GENADUL_ITS ---
Discharge Plan Discharge Details Chief Complaint: RespSymp Primary Care Provider: Laverne Sung ED Provider: Leticia Middleton Home Meds and New Rx's Prescriptions: No Action (DME) 3XL incontinence briefs See Rx Instructions .Route .MEDSUPPLY Qty: 30 2RF Rx Instructions: Uses one nightly at bedtime for urge incontinence calcium carbonate-vitamin D3 600 mg-20 mcg (800 unit) tablet 1 tab PO DAILY acetaminophen [Tylenol Extra Strength] 500 mg tablet 500 mg PO Q6H PRN docusate sodium [Colace] 100 mg capsule 100 mg PO BID PRN clotrimazole 1 % cream 1 applic topical BID Qty: 45 0RF Rx Instructions: apply liberal amount until rash to breasts and skin folds is resolved magnesium oxide 400 mg (241.3 mg magnesium) tablet 400 mg PO DAILY Qty: 90 3RF Rx Instructions: Low magnesium sennosides [senna] 8.6 mg tablet 8.6 mg PO QHS PRN (Reason: constipation) Qty: 30 0RF Rx Instructions: Medication trial for constipation (see if better tolerated than Miralax) (DME) Oxygen Tank See Rx Instructions .ROUTE .MEDSUPPLY Qty: 1 0RF Rx Instructions: 2-5L via NC continuous (DME) Wheelchair See Rx Instructions .Route .MEDSUPPLY Qty: 1 0RF Rx Instructions: As directed allopurinol 100 mg tablet See Rx Instructions .ROUTE .COMPLEX Qty: 90 3RF Dose Instruction: TAKE ONE TABLET BY MOUTH EVERY DAY FOR GOUT PREVENTION Rx Instructions: TAKE ONE TABLET BY MOUTH EVERY DAY FOR GOUT PREVENTION amlodipine 5 mg tablet See Rx Instructions .ROUTE .COMPLEX Qty: 90 3RF Dose Instruction: TAKE ONE TABLET BY MOUTH EVERY DAY Rx Instructions: TAKE ONE TABLET BY MOUTH EVERY DAY Eliquis 5 mg tablet See Rx Instructions .ROUTE .COMPLEX Qty: 180 3RF Dose Instruction: TAKE ONE TABLET BY MOUTH TWICE A DAY Rx Instructions: TAKE ONE TABLET BY MOUTH TWICE A DAY insulin glargine 100 unit/mL (3 mL) insulin pen 14 unit subcut HS Qty: 30 1RF Preservision capsule PO (DME) FreeStyle Bradley 2 Sensor Kit See Rx Instructions .ROUTE .MEDSUPPLY Qty: 2 11RF Rx Instructions: As directed; on insulin AC & HS for goal A1C 8% dapagliflozin propanediol [Farxiga] 5 mg tablet 5 mg PO QAM Qty: 90 3RF nystatin 100,000 unit/gram powder 1 applic topical TID Qty: 60 0RF Rx Instructions: apply liberally to breast folds until rash resolved (DME) pen needle, diabetic [BD Ultra-Fine Mini Pen Needle] 31 gauge x 3/16 needle See Rx Instructions .ROUTE .COMPLEX Qty: 100 6RF Dose Instruction: USE FOUR TIMES A DAY Rx Instructions: USE FOUR TIMES A DAY vitamin B complex-folic acid [B Complex 1 (with folic acid)] 0.4 mg tablet See Rx Instructions .ROUTE .COMPLEX Qty: 90 3RF Dose Instruction: TAKE ONE TABLET BY MOUTH EVERY DAY Rx Instructions: TAKE ONE TABLET BY MOUTH EVERY DAY cefpodoxime 100 mg tablet 100 mg PO BID Qty: 6 0RF Rx Instructions: 04/14/2024:Extend 3 more days pantoprazole [Protonix] 40 mg tablet,delayed release (DR/EC) 40 mg PO DAILY Qty: 90 3RF Rx Instructions: h/o GI bleed, stomach protection insulin aspart U-100 [Novolog FlexPen U-100 Insulin] 100 unit/mL (3 mL) insulin pen See Rx Instructions subcut AC MDD 30 units Qty: 90 3RF Rx Instructions: For diabetes as directed with meals sliding scale: if glucose 100 or less:0units insulin 101-150: 2 units 151-200: 4 units 201-250: 6 units 251-300: 8 units over 300: 10 units atorvastatin 80 mg tablet 80 mg PO QHS Qty: 90 3RF Rx Instructions: Cholesterol torsemide 20 mg tablet 20 mg PO DAILY AM Qty: 90 3RF polyethylene glycol 3350 [ClearLax] 17 gram/dose powder 17 g PO DAILY PRN bismuth subsalicylate [Anti-Diarrheal] 262 mg/15 mL suspension 524 mg PO QID HPI General Date/Time Provider Initiated Documentation: 05/22/24 13:52 . HPI Narrative: The patient is a 78-year-old female with a history of diabetes, atrial fibrillation, hyperlipidemia, hypertension, oxygen dependence, mitral and tricuspid regurgitation, and chronic kidney disease. She presents with increased work of breathing, dysuria, and urinary frequency. She reports a gradual onset of these symptoms over the past few days. She is alert and oriented, able to speak in complete sentences, and in mild respiratory distress. She has crackles at the bases of her lungs, diminished throughout, and 2+ pitting edema in both lower extremities. Her abdomen is nontender. During a recent hospitalization, she had no leukocytosis, a BNP of 6298, and an initial troponin of 136. Her BUN was 71, creatinine 2.8, and CO2 was 39, all not markedly changed from prior. She has ongoing chest pain and severe aortic stenosis secondary to hypercarbia. On VBG, BiPAP was ordered. She is at 12/5 on 35 percent oxygen and tolerating this well. A repeat VBG and troponin will be done at 1600 hours. It is suspected that she is experiencing some strain from an acute CHF exacerbation. She is allergic to LASIX, so she was given 1 mg of Bumex and a Xopenex nebulizer treatment. Her last echocardiogram shows a 55 to 60 percent ejection fraction and only mild mitral and tricuspid regurgitation. Related Data Home Medications ?Medication ?Instructions ?Recorded ?Confirmed acetaminophen 500 mg tablet 500 mg PO Q6H PRN 12/04/19 05/16/24 (Tylenol Extra Strength) Oxygen #1 ea 12/19/21 05/16/24 docusate sodium 100 mg capsule 100 mg PO BID PRN 02/10/22 05/16/24 (Colace) 3XL incontinence briefs #30 ea 05/30/22 05/16/24 Wheelchair #1 ea 06/08/22 05/16/24 polyethylene glycol 3350 17 17 g PO DAILY PRN 02/24/23 05/16/24 gram/dose oral powder (ClearLax) bismuth subsalicylate 262 mg/15 mL 524 mg PO QID 03/05/23 05/16/24 oral suspension (Anti-Diarrheal) allopurinol 100 mg tablet See Rx Instructions .Route 08/11/23 05/16/24 .COMPLEX #90 tabs amlodipine 5 mg tablet See Rx Instructions .Route 09/06/23 05/16/24 .COMPLEX #90 tabs clotrimazole 1 % topical cream 1 applic topical BID #45 grams 09/06/23 05/16/24 magnesium oxide 400 mg (241.3 mg 400 mg PO DAILY #90 tabs 09/06/23 05/16/24 magnesium) tablet apixaban 5 mg tablet (Eliquis) See Rx Instructions .Route 10/18/23 05/16/24 .COMPLEX #180 tabs insulin glargine 100 unit/mL (3 14 unit (0.14 mL) subcut HS #30 mL 01/17/24 05/16/24 mL) subcutaneous pen calcium 600 mg (as 1 tab PO DAILY 01/24/24 05/16/24 carbonate)-vitamin D3 20 mcg (800 unit) tablet Preservision PO 02/17/24 05/16/24 flash glucose sensor (FreeStyle #2 ea 02/23/24 05/16/24 Bradley 2 Sensor kit) dapagliflozin propanediol 5 mg 5 mg PO QAM #90 tabs 03/06/24 05/16/24 tablet (Farxiga) nystatin 100,000 unit/gram topical 1 applic topical TID #60 grams 03/12/24 05/16/24 powder pen needle, diabetic 31 gauge x #100 ea 03/24/24 05/16/2405/28 (BD Ultra-Fine Mini Pen Needle) vitamin B complex-folic acid 0.4 See Rx Instructions .Route 04/10/24 05/16/24 mg tablet (B Complex 1 (with folic .COMPLEX #90 tabs acid)) sennosides 8.6 mg tablet (senna) 8.6 mg PO QHS PRN constipation #30 04/12/24 05/16/24 tabs cefpodoxime 100 mg tablet 100 mg PO BID #6 tabs 04/14/24 05/16/24 pantoprazole 40 mg tablet,delayed 40 mg PO DAILY #90 tabs 04/24/24 05/16/24 release (Protonix) insulin aspart U-100 100 unit/mL See Rx Instructions subcut AC DMT2 05/10/24 05/16/24 (3 mL) subcutaneous pen (Novolog #90 mL FlexPen U-100 Insulin aspart) atorvastatin 80 mg tablet 80 mg PO QHS #90 tabs 05/21/24 torsemide 20 mg tablet 20 mg PO DAILY AM #90 tabs 05/21/24 Previous Rx's ?Medication ?Instructions ?Recorded Oxygen #1 ea 12/19/21 3XL incontinence briefs #30 ea 05/30/22 Wheelchair #1 ea 06/08/22 allopurinol 100 mg tablet See Rx Instructions .Route 08/11/23 .COMPLEX #90 tabs amlodipine 5 mg tablet See Rx Instructions .Route 09/06/23 .COMPLEX #90 tabs clotrimazole 1 % topical cream 1 applic topical BID #45 grams 09/06/23 magnesium oxide 400 mg (241.3 mg 400 mg PO DAILY #90 tabs 09/06/23 magnesium) tablet apixaban 5 mg tablet (Eliquis) See Rx Instructions .Route 10/18/23 .COMPLEX #180 tabs insulin glargine 100 unit/mL (3 14 unit (0.14 mL) subcut HS #30 mL 01/17/24 mL) subcutaneous pen flash glucose sensor (FreeStyle #2 ea 02/23/24 Bradley 2 Sensor kit) dapagliflozin propanediol 5 mg 5 mg PO QAM #90 tabs 03/06/24 tablet (Farxiga) nystatin 100,000 unit/gram topical 1 applic topical TID #60 grams 03/12/24 powder pen needle, diabetic 31 gauge x #100 ea 03/24/2405/28 (BD Ultra-Fine Mini Pen Needle) vitamin B complex-folic acid 0.4 See Rx Instructions .Route 04/10/24 mg tablet (B Complex 1 (with folic .COMPLEX #90 tabs acid)) sennosides 8.6 mg tablet (senna) 8.6 mg PO QHS PRN constipation #30 04/12/24 tabs cefpodoxime 100 mg tablet 100 mg PO BID #6 tabs 04/14/24 pantoprazole 40 mg tablet,delayed 40 mg PO DAILY #90 tabs 04/24/24 release (Protonix) insulin aspart U-100 100 unit/mL See Rx Instructions subcut AC DMT2 05/10/24 (3 mL) subcutaneous pen (Novolog #90 mL FlexPen U-100 Insulin aspart) atorvastatin 80 mg tablet 80 mg PO QHS #90 tabs 05/21/24 torsemide 20 mg tablet 20 mg PO DAILY AM #90 tabs 05/21/24 Allergies Allergy/AdvReac Type Severity Reaction Status Date / Time codeine Allergy Severe Swelling/Ed Verified 01/24/24 14:55 warner furosemide (From Lasix) Allergy Severe Swelling/Ed Verified 01/24/24 14:55 warner morphine Allergy Severe Swelling/Ed Verified 01/24/24 14:55 warner peanut Allergy Severe Nausea Verified 01/24/24 14:55 tree nut Allergy Severe Other (See Verified 01/24/24 14:55 Comment) acetaminophen (From Percocet) Allergy Intermediate ITCHY Verified 01/24/24 14:55 adhesive tape Allergy Intermediate Skin Rash Verified 01/24/24 14:55 oxycodone HCl (From Percocet) Allergy Intermediate ITCHY Verified 01/24/24 14:55 apricot Allergy Unknown Skin Rash Uncoded 01/24/24 14:55 General Stated Complaint: RespSymp GERALDINE: 3 Exam Narrative Exam Narrative: General Appearance: Patient is alert and oriented, able to speak in complete sentences, and in mild respiratory distress. Vital signs: Within normal limits. HEENT: Within normal limits. Respiratory: Crackles are present at the bases of the lungs, diminished throughout. Gastrointestinal: Abdomen is nontender. Extremities: There is 2+ pitting edema to bilateral lower extremities. Skin: Warm and dry, no rash. Neurological: Normal. Course Vital Signs Vital signs: Vital Signs Temperature 36.7 C 05/22/24 13:44 Pulse 92 H 05/22/24 13:44 Respiratory Rate 18 05/22/24 13:44 Pulse Oximetry 89 L 05/22/24 13:44 Temperature 36.7 C 05/22/24 13:44 Temperature Source Oral 05/22/24 13:44 Pulse 79 05/22/24 14:39 Respiratory Rate 28 H 05/22/24 14:39 Pulse Oximetry 94 05/22/24 14:39 Oxygen Delivery Method Nasal Cannula 05/22/24 13:44 Oxygen Flow Rate 6 05/22/24 13:44 Fraction of Inspired Oxygen (FIO2) 30 05/22/24 14:39 Lab/Test Results Lab/Test Results: Laboratory Tests Range/Units 05/22/24 14:01 WBC (4.4-10.8) 10^3/uL 6.99 RBC (3.93-5.22) 10^6/uL 3.32 L Hgb (11.2-15.7) g/dL 10.4 L Hct (36.0-46.0) % 34.9 L MCV (80-95) fL 105 H MCH (27.0-33.0) pg 31.3 MCHC (32.0-36.0) % 29.8 L RDW (11.7-14.6) % 20.5 H Plt Count (130-400) 10^3/uL 184 MPV (8.0-11.0) fL 11.0 Immature Gran % % 0.3 Neutrophils % % 67.8 Lymphocytes % % 18.9 Monocytes % % 7.7 Eosinophils % % 4.9 Basophils % % 0.4 Nucleated RBC % (0.0-0.3) % 0.3 Absolute Neutrophils (1.2-6.7) 10^3/uL 4.74 Absolute Lymphocytes (1.2-3.4) 10^3/uL 1.32 Absolute Monocytes (0.1-0.8) 10^3/uL 0.54 Absolute Eosinophils (0.0-0.7) 10^3/uL 0.34 Absolute Basophils (0.0-0.2) 10^3/uL 0.03 RBC Morphology See Below Polychromasia Present Poikilocytosis 1+ Anisocytosis 2+ Macrocytosis 1+ VBG pH (7.31-7.41) 7.29 L VBG pCO2 (41-51) mmHg 81 H* VBG pO2 mmHg 31 VBG HCO3 (23-28) mmol/L 39 H VBG Total CO2 (24-29) mmol/L 37 H VBG O2 Saturation % 51 VBG Base Excess (-2-3) mmol/L 12 H Sodium (136-145) mmol/L 142 Potassium (3.5-5.1) mmol/L 4.7 Chloride (98-107) mmol/L 100 Carbon Dioxide (21.0-32.0) mmol/L 39.0 H Anion Gap (3-11) mmol/L 3.0 BUN (7-18) mg/dL 71 H Creatinine (0.55-1.02) mg/dL 2.8 H Est GFR (CKD-EPI 2020) (mL/min/1.73m2) 16.87 Glucose (74-106) mg/dL 162 H Calcium (8.5-10.1) mg/dL 9.6 Magnesium (1.8-2.4) mg/dL 2.1 Total Bilirubin (0.2-1.0) mg/dL 0.4 AST (15-37) U/L 17 ALT (14-59) U/L 15 Alkaline Phosphatase (46-116) U/L 75 Troponin I (<or=51) ng/L 136 H* NT-Pro-B Natriuret Pep (<300) pg/mL 6295 H Total Protein (6.4-8.2) g/dL 7.6 Albumin (3.4-5.0) g/dL 3.2 L Medical Decision Making Laboratory Studies BNP 6298. Troponin initially 136. BUN of 71, creatinine 2.8. CO2 of 39. Imaging Last echocardiogram shows 55 to 60% ejection fraction and only mild mitral and tricuspid regurgitation. Chest x-ray shows pulmonary vascular congestion with possible nodule or infiltrate low suspicion clinically for pneumonia, this is per radiology interpretation my review Initial Assessment: 28-year-old female with history of diabetes, atrial fibrillation, hyperlipidemia, hypertension, oxygen dependence, mitral and tricuspid regurgitation, chronic kidney disease, presents with increased work of breathing, dysuria, and frequency. Gradual onset over the last few days. Mild respiratory distress, crackles at lung bases, 2+ pitting edema in bilateral lower extremities. Differential Diagnosis: - Acute CHF exacerbation: Suspected due to fluid overload. Plan includes administration of Bumex and Xopenex nebulizer treatment. Repeat VBG and troponin at 1600 hours. ED Course: - BiPAP at 12/5 on 35% oxygen, patient tolerating well. - Administered 1 mg of Bumex. - Xopenex nebulizer treatment given. - Reviewed last echocardiogram: 55 to 60% ejection fraction, mild mitral and tri cuspid regurgitation. I did consider pneumonia with nodular infiltrate however I think it is unlikely given she has no leukocytosis and has not otherwise been ill, will order Fluvid for viral and continue to monitor Will monitor intake output - Repeat VBG and troponin planned at 1600 hours. Initial troponin 136 patient does not currently have chest discomfort does take apixaban Final Assessment: Patient with acute CHF exacerbation likely due to fluid overload. Treatment included Bumex and Xopenex nebulizer. Monitoring with repeat VBG and troponin. Clinical Impression: - Acute CHF exacerbation MDM Components Evaluation: - Number of Differential Diagnoses or Management Options: Acute CHF exacerbation - Amount and Complexity of Data Reviewed: VBG, troponin, echocardiogram - Risk of Complication and Morbidity or Mortality: High due to acute CHF exacerbation and underlying comorbidities. Quality:[facility] Health Related Social Needs: No Data to Display Critical Care Time Critical Care Time Attestation: 35 minutes of critical care time secondary to acute respiratory failure in the presence of likely CHF exacerbation requiring diuretics, BiPAP, likely admission to the hospital [facility] All Active Problems (Updated 05/16/24 @ 14:15 by Micki Mccain DPM) History of frostbite (Acute) Nerve pain (Acute) Edema (Acute) Macular degeneration of both eyes (Acute) Diabetic peripheral neuropathy (Acute) ACP (advance care planning) (Acute) Right hand paresthesia (Acute) Palliative care patient (Acute) Ureteral stone (Acute ~11/2022) Nephrostomy tube Right thyroid nodule (Acute ~11/2022) Impaired instrumental activities of daily living (Acute) Deficit in activities of daily living (ADL) (Acute) Hyperuricemia (Acute) Gout (Chronic) 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) Respiratory failure with hypoxia and hypercapnia (Chronic) Chronic O2 CHF (congestive heart failure) (Acute 02/23/14) Preserved EF (10/2020 & 08/2021 ECHO) Obstructive sleep apnea (Chronic 02/23/14) 2022: Trilogy; Sleep Med Referral, 04/17/2019-->Very severe YARELY; CPAP ([facility]) with continuous O2, new Panda C-Pap 01/2021 Type II diabetes mellitus (Chronic) Hypertension (Chronic) Hyperlipidemia (Chronic) Atrial fibrillation (Chronic) Apixaban Anemia (Chronic) Pulmonary hypertension (Chronic) Dependence on supplemental oxygen (Chronic) YARELY + Pulm HTN Chronic low back pain (Chronic 07/24/15) CT-lumbar spine 2019-- Severe multilevel degenerative changes in the lumbar spine resulting in neural foraminal and central spinal canal stenosis. Chronic anticoagulation (Chronic) AF--Apixaban Risk for falls (Chronic) Sedentary lifestyle (Chronic) B12 deficiency (Chronic) Start B12 injections; elevated MCV-->converted to oral 03/2023 Obesity hypoventilation syndrome (Chronic) Obesity + Severe YARELY + Chronic Hypercapnia Dependent on walker for ambulation (Chronic) Hypomagnesemia (Acute ~07/2021) Mild mitral valve regurgitation (Acute ~08/2021) ECHO Trace tricuspid valve regurgitation (Acute ~08/2021) ECHO Medical History Closed stable burst fracture of ninth thoracic vertebra [facility] [place] Pain & Spine-03/01/23 Diverticulosis Knee pain, left Pressure sore on buttocks Bradycardia Trigger finger, right middle finger Injection: 05/04/2022 Right carpal tunnel syndrome Lipoma Restrictive lung disease (~03/2014) PFTs validated 04/04/2014-->see scanned docs Gout attack (~10/2020) R podagra, first attack 10/2020-->treated with colchine, effective Sciatica of right side without back pain RX Medrol Dietary counseling reviewed sodium levels in her food, how to count mg, goal of 1500 mg daily due to CHF Renal calculi Non obstructive per CT Peptic ulcer of duodenum [facility] [place] Path reports upper endoscopy; RX Carafate Female hirsutism Carpal tunnel syndrome, bilateral (12/17/16) Lipoma of arm Heme + stool [facility] [place] Upper GI Endoscopy Peptic Duodenitis (pathology report); repeat hemoccults NEG 11/2019 Folate deficiency Low 12/2018; resolved 05/2019 labs; discontinued 02/05/2020 Iron deficiency EGD 05/23/19 at [facility] [place]; discont supp iron & vit c 02/05/2020; Hgb stable and iron constipating; she will obtain dietarily YARELY (obstructive sleep apnea) Spinal stenosis, lumbar HTN (hypertension) Insulin dependent diabetes mellitus Edentulous H/O rotator cuff tear H/O fracture of nose h/o elbow fx Adult body mass index 50.0-59.9 Surgical History History of total knee arthroplasty bilateral History of total abdominal hysterectomy and bilateral salpingo-oophorectomy (~02/1999) History of shoulder surgery Right shoulder repair - 2004 History of carpal tunnel repair Left- 1998 Right- 2017 Colonoscopy - MAC (08/14/16) Biopsy, Temporal Artery (01/18/15) DR.C YOUNG History of total bilateral knee replacement Family History Mother Heart disease Father Heart disease Lung cancer Brother Heart disease AAA (abdominal aortic aneurysm, ruptured) Brother Obesity Son No problems noted. Daughter Stillborn, abnormal Daughter No problems noted. 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 Pets and animals: Yes Pets and animals: cat(s) Sexually active: No Do you think of yourself as: straight/heterosexual Current gender identity: female What is your relationship status?: How often do you talk on the phone with friends or family?: once per week How often do you get together with friends or relatives?: once per week Panel score (0-1 are the most socially isolated patients): 0 What type of physical activity do you participate in: none and sedentary lifestyle Special jakob needs: No Agree to transfusion: Yes Seatbelt use: always In current or past relationships, have you been: made to feel afraid Do you feel safe at home: Yes Do you feel safe in your relationship?: Yes Additional Social history: Was discharged from [facility] yesterday. MAXRN 03/05/23
[2024-05-22] MEDS: Bumetanide 1 MG/4 ML VIAL IVP (15:48)
[2024-05-22] MEDS: Levalbuterol 1.25 MG/3 ML UPD VIAL UPD (15:50)
--- NOTE | 2024-05-22 16:04 | W.EDPROG ---
Date of service: 05/22/24 Time of Service: 16:04 Medical Decision Making This dictation utilizes [id number] dictation software and may contain unedited grammatical errors. Patient seen in signout from Leticia Middleton PA-C, please see her complete note. Essentially this 78-year-old female presented for increasing shortness of breath and increasing O2 needs as well as dysuria. Initial workup finds her with an elevated troponin at 136, the patient is in hypercarbic respiratory failure on BiPAP currently satting at 89-91% with repeat troponin and repeat VBG be pending, her EKG is nonischemic, last echocardiogram in 2022, patient is anticoagulated on Eliquis for atrial fibrillation and has received Bumex in the ED, patient's status is full code, patient is likely in CHF and has an incidental lung nodule on chest x-ray. 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 Family and social history: no ETOH/IVDU, no tobacco use. Differential / pathologies of concern include respiratory failure, ACS, PE less likely- but renal function poor cannot scan. Diagnostic studies of: -Reviewed studies of prior provider -Initial trop 136, repeat pending - 137 - with a reassuring EKG this could be renally driven, patient reasonable for admission here, do not feel urgent Cardiology consult is warranted as the patient would not likely need cath or intervention -VBG shows pCO2 82, repeat pending - repeat pCO2 72, pH 7.32 responding well to BiPaP -non-ischemic EKG -chronic anemia HgB 10.4, SCr 2.8 / GFR 16.87 -BNP 6295 -UA reuslts > 50 WBCs, likely needs IV ABX, resulted after admission to ICU -Added Covid/Flu/RSV PCR - pending Interventions of: -Page Hospitalist consult - Elke Adam accepts for ICU admission @ 1700. ED Course/Assessment/Plan: 78-year-old female presents with hypercarbic respiratory failure which she has presented for in the past, she has restrictive lung disease, she has stable troponins and is likely in an element of CHF and has received Bumex. Patient was admitted to ICU following results of stable troponin and repeat, Fluvid is pending at time of admission. Disposition of Acute Hypercapnic Respiratory Failure. Patient verbalized understanding of the plan and return to ED criteria and engaged in shared decision making. Medical Records Medical records reviewed: Yes I reviewed the patient's medical records. Imaging Data Radiologic Study: Attestation: I personally reviewed and interpreted this imaging study as follows: Radiologist's impression: EXAM: XR PORTABLE CHEST AP CLINICAL HISTORY: dyspnea. TECHNIQUE: 2D digital imaging was performed. COMPARISON: CR XR CHEST 2V PA LATERAL from 12/01/[address] CHEST/ABD/PEL WO from 03/11/2023 FINDINGS: Single AP portable view. Heart size is upper normal. The mediastinum is not widened. There increased markings in both lung saucedo. There is also nodular infiltrate in the mid left lung left parahilar region measuring approximately 1.7 x 1.2 cm. There are no pleural effusions IMPRESSION: Increased bilateral lung markings + nodular density in the mid left lung field measuring 17 x 12 mm No obvious pleural effusions evident on this single AP portable view. Lab Data Lab results reviewed: Yes I reviewed the patient's lab results. Labs: 05/22/24 17:15 Urine - Reflex from Ua Urine Culture - Pending Laboratory Tests Range/Units 05/22/24 05/22/24 05/22/24 14:01 16:13 17:15 WBC (4.4-10.8) 10^3/uL 6.99 RBC (3.93-5.22) 10^6/uL 3.32 L Hgb (11.2-15.7) g/dL 10.4 L Hct (36.0-46.0) % 34.9 L MCV (80-95) fL 105 H MCH (27.0-33.0) pg 31.3 MCHC (32.0-36.0) % 29.8 L RDW (11.7-14.6) % 20.5 H Plt Count (130-400) 10^3/uL 184 MPV (8.0-11.0) fL 11.0 Immature Gran % % 0.3 Neutrophils % % 67.8 Lymphocytes % % 18.9 Monocytes % % 7.7 Eosinophils % % 4.9 Basophils % % 0.4 Nucleated RBC % (0.0-0.3) % 0.3 Absolute Neutrophils (1.2-6.7) 10^3/uL 4.74 Absolute Lymphocytes (1.2-3.4) 10^3/uL 1.32 Absolute Monocytes (0.1-0.8) 10^3/uL 0.54 Absolute Eosinophils (0.0-0.7) 10^3/uL 0.34 Absolute Basophils (0.0-0.2) 10^3/uL 0.03 RBC Morphology See Below Polychromasia Present Poikilocytosis 1+ Anisocytosis 2+ Macrocytosis 1+ VBG pH (7.31-7.41) 7.29 L 7.34 VBG pCO2 (41-51) mmHg 81 H* 72 H* VBG pO2 mmHg 31 34 VBG HCO3 (23-28) mmol/L 39 H 39 H VBG Total CO2 (24-29) mmol/L 37 H 37 H VBG O2 Saturation % 51 61 VBG Base Excess (-2-3) mmol/L 12 H 13 H Sodium (136-145) mmol/L 142 Potassium (3.5-5.1) mmol/L 4.7 Chloride (98-107) mmol/L 100 Carbon Dioxide (21.0-32.0) mmol/L 39.0 H Anion Gap (3-11) mmol/L 3.0 BUN (7-18) mg/dL 71 H Creatinine (0.55-1.02) mg/dL 2.8 H Est GFR (CKD-EPI 2020) (mL/min/1.73m2) 16.87 Glucose (74-106) mg/dL 162 H Calcium (8.5-10.1) mg/dL 9.6 Magnesium (1.8-2.4) mg/dL 2.1 Total Bilirubin (0.2-1.0) mg/dL 0.4 AST (15-37) U/L 17 ALT (14-59) U/L 15 Alkaline Phosphatase (46-116) U/L 75 Troponin I (<or=51) ng/L 136 H* 137 H* NT-Pro-B Natriuret Pep (<300) pg/mL 6295 H Total Protein (6.4-8.2) g/dL 7.6 Albumin (3.4-5.0) g/dL 3.2 L Urine Color (Yellow) Yellow Urine Clarity (Clear) Cloudy Urine pH (5-8) 5.5 Ur Specific [place] (1.005-1.025) 1.015 Urine Protein (Neg-Trace) mg/dL 100 H Urine Ketones (Negative) mg/dL Negative Urine Blood (Negative) Large H Urine Nitrite (Negative) Negative Urine Bilirubin (Negative) Negative Urine Urobilinogen (Up to 0.2) mg/dL 0.2 Ur Leukocyte Esterase (Negative) Large H Urine RBC (0-2) HPF >50 H Urine WBC (0-5) HPF >50 H Ur Epithelial Cells Not Applicable Urine Crystals Not Applicable Urine Bacteria Not Applicable Urine Mucus Not Applicable Ur Culture Indicated? Yes Urine Glucose (Negative) mg/dL 250 H Quality:SDOH Health Related Social Needs: No Data to Display Discharge Plan Disposition Patient Disposition: Admit to [facility] Condition: Stable Discharge Details Chief Complaint: RespSymp Clinical Impression: Acute hypercapnic respiratory failure Primary Care Provider: Laverne Sung ED Provider: Yuniel Sanches Home Meds and New Rx's Prescriptions: No Action (DME) 3XL incontinence briefs See Rx Instructions .Route .MEDSUPPLY Qty: 30 2RF Rx Instructions: Uses one nightly at bedtime for urge incontinence calcium carbonate-vitamin D3 600 mg-20 mcg (800 unit) tablet 1 tab PO DAILY acetaminophen [Tylenol Extra Strength] 500 mg tablet 500 mg PO Q6H PRN docusate sodium [Colace] 100 mg capsule 100 mg PO BID PRN clotrimazole 1 % cream 1 applic topical BID Qty: 45 0RF Rx Instructions: apply liberal amount until rash to breasts and skin folds is resolved magnesium oxide 400 mg (241.3 mg magnesium) tablet 400 mg PO DAILY Qty: 90 3RF Rx Instructions: Low magnesium sennosides [senna] 8.6 mg tablet 8.6 mg PO QHS PRN (Reason: constipation) Qty: 30 0RF Rx Instructions: Medication trial for constipation (see if better tolerated than Miralax) (DME) Oxygen Tank See Rx Instructions .ROUTE .MEDSUPPLY Qty: 1 0RF Rx Instructions: 2-5L via NC continuous (DME) Wheelchair See Rx Instructions .Route .MEDSUPPLY Qty: 1 0RF Rx Instructions: As directed allopurinol 100 mg tablet See Rx Instructions .ROUTE .COMPLEX Qty: 90 3RF Dose Instruction: TAKE ONE TABLET BY MOUTH EVERY DAY FOR GOUT PREVENTION Rx Instructions: TAKE ONE TABLET BY MOUTH EVERY DAY FOR GOUT PREVENTION amlodipine 5 mg tablet See Rx Instructions .ROUTE .COMPLEX Qty: 90 3RF Dose Instruction: TAKE ONE TABLET BY MOUTH EVERY DAY Rx Instructions: TAKE ONE TABLET BY MOUTH EVERY DAY Eliquis 5 mg tablet See Rx Instructions .ROUTE .COMPLEX Qty: 180 3RF Dose Instruction: TAKE ONE TABLET BY MOUTH TWICE A DAY Rx Instructions: TAKE ONE TABLET BY MOUTH TWICE A DAY insulin glargine 100 unit/mL (3 mL) insulin pen 14 unit subcut HS Qty: 30 1RF Preservision capsule 1 cap PO DAILY (DME) FreeStyle Bradley 2 Sensor Kit See Rx Instructions .ROUTE .MEDSUPPLY Qty: 2 11RF Rx Instructions: As directed; on insulin AC & HS for goal A1C 8% dapagliflozin propanediol [Farxiga] 5 mg tablet 5 mg PO QAM Qty: 90 3RF nystatin 100,000 unit/gram powder 1 applic topical TID Qty: 60 0RF Rx Instructions: apply liberally to breast folds until rash resolved (DME) pen needle, diabetic [BD Ultra-Fine Mini Pen Needle] 31 gauge x 3/16 needle See Rx Instructions .ROUTE .COMPLEX Qty: 100 6RF Dose Instruction: USE FOUR TIMES A DAY Rx Instructions: USE FOUR TIMES A DAY vitamin B complex-folic acid [B Complex 1 (with folic acid)] 0.4 mg tablet See Rx Instructions .ROUTE .COMPLEX Qty: 90 3RF Dose Instruction: TAKE ONE TABLET BY MOUTH EVERY DAY Rx Instructions: TAKE ONE TABLET BY MOUTH EVERY DAY pantoprazole [Protonix] 40 mg tablet,delayed release (DR/EC) 40 mg PO DAILY Qty: 90 3RF Rx Instructions: h/o GI bleed, stomach protection insulin aspart U-100 [Novolog FlexPen U-100 Insulin] 100 unit/mL (3 mL) insulin pen See Rx Instructions subcut AC MDD 30 units Qty: 90 3RF Rx Instructions: For diabetes as directed with meals sliding scale: if glucose 100 or less:0units insulin 101-150: 2 units 151-200: 4 units 201-250: 6 units 251-300: 8 units over 300: 10 units atorvastatin 80 mg tablet 80 mg PO QHS Qty: 90 3RF Rx Instructions: Cholesterol torsemide 20 mg tablet 20 mg PO DAILY AM Qty: 90 3RF polyethylene glycol 3350 [ClearLax] 17 gram/dose powder 17 g PO DAILY PRN bismuth subsalicylate [Anti-Diarrheal] 262 mg/15 mL suspension 524 mg PO QID
[2024-05-22 16:19] LABS: BE (Venous) 13 mmol/L (-2-3); HCO3 (Venous) 39 mmol/L (23-28); O2 Sat (Venous) 61 %; TCO2 (Venous) 37 mmol/L (24-29); pH (Venous) 7.34 (7.31-7.41); pO2 (Venous) 34 mmHg
[2024-05-22 16:20] LABS: pCO2 (Venous) 72 mmHg (41-51)
[2024-05-22 16:41] LABS: Troponin I 137 ng/L (<or=51)
--- NOTE | 2024-05-22 17:07 | W.PM.HP.N ---
Date of service: 05/22/24 Time of Service: 17:07 Assessment and Plan Assessment and plan (1) Acute on chronic respiratory failure with hypoxia and hypercapnia: Status: Acute Assessment and plan: - Patient has documented history of chronic hypoxic and hypercapnic respiratory failure normally on 4 L nasal cannula -Additionally she has history of noncompliance with her trilogy -Was found to be both hypoxic and hypercapnic in the emergency department and placed on BiPAP -Currently requiring 6 L through BiPAP, baseline is 4 L nasal cannula -pH and CO2 on VBG improved after 2 hours of BiPAP therapy, will continue while patient can tolerate -May also be secondary to CHF exacerbation (see below for details) (2) CHF (congestive heart failure): Status: Acute Assessment and plan: - History of HFpEF, the last echo was in 2021 -Will obtain repeat echocardiogram -proBNP about 6000, similar patient previous hospitalization -Received 1 mg IV Bumex in the emergency department, will continue twice daily -Strict I's and O's (3) Obstructive sleep apnea: Status: Chronic Assessment and plan: - In combination with obesity hypoventilation syndrome -Will discuss with the patient about her trilogy use and compliance (4) CKD stage 4 due to type 2 diabetes mellitus: Status: Chronic Assessment and plan: - Creatinine appears baseline at this time -Will monitor given increased diuretic usage during hospitalization for CHF exacerbation as noted above (5) Atrial fibrillation: Status: Chronic Assessment and plan: - Rate controlled, will continue home Eliquis (6) Pulmonary hypertension: Status: Chronic Assessment and plan: - Likely secondary to YARELY and OHS as noted above (7) Hypertension: Status: Chronic Assessment and plan: - Continue home amlodipine 5 mg daily (8) Insulin dependent type 2 diabetes mellitus: Status: Acute Assessment and plan: - Continue home Lantus 14 units at bedtime -Sliding scale insulin, carb consistent diet (9) Hyperlipidemia: Status: Chronic Assessment and plan: - Continue home statin 80 mg Lipitor at bedtime History of Present Illness History of Present Illness Chief Complaint: shortness of breath Narrative: 78-year-old morbidly obese female with past medical history of congestive heart failure, A-fib, pulmonary hypertension, IDDM and YARELY/OHS on trilogy with chronic hypoxic respiratory failure requiring 4 L nasal cannula at baseline who presents to the emergency department complaints of shortness of breath and urinary frequency. Patient states that she has had a gradual onset of shortness of breath and dysuria over the last few days but she denies any headache, lightheadedness, dizziness, fevers, cough, nausea vomiting diarrhea or constipation. Of note, patient has documented history by pulmonology to be noncompliant with her home trilogy machine. In the emergency department the patient was noted as having significant work of breathing with an oxygen saturation down to 85% on her baseline 4 L nasal cannula. Given her work of breathing and history of hypercapnic respiratory failure she was placed on BiPAP which did improve her work of breathing. She had a VBG which showed acute hypoxic and hypercapnic respiratory failure with a pCO2 of 81 and an initial pH of 7.29 which improved after 2 hours of BiPAP use with a pH of 7.34 and a P CO2 of 72. CBC and CMP were unremarkable and proBNP while elevated, is within patient's previous baseline and hospitalization numbers. Given the patient has diagnosed allergy to Lasix she was given 1 mg IV Bumex. Additionally, she was noted as having elevated troponin of 136 which was 137 on repeat, but this is likely secondary to baseline CKD as well as hypoxia given that patient denies chest pain and had no changes on her EKG. At which time emergency room PA paged hospitalist for admission for patient with acute on chronic hypoxic and hypercapnic respiratory failure due to acute exacerbation of CHF and potential trilogy noncompliance. Review of Systems All systems reviewed & are unremarkable except as noted in HPI and below PFSH All Active Problems (Updated 05/22/24 @ 17:36 by JAYDEN Perera) Acute hypercapnic respiratory failure (Acute) Insulin dependent type 2 diabetes mellitus (Acute) Acute on chronic respiratory failure with hypoxia and hypercapnia (Acute) History of frostbite (Acute) Nerve pain (Acute) Edema (Acute) Macular degeneration of both eyes (Acute) Diabetic peripheral neuropathy (Acute) ACP (advance care planning) (Acute) Right hand paresthesia (Acute) Palliative care patient (Acute) Ureteral stone (Acute ~11/2022) Nephrostomy tube Right thyroid nodule (Acute ~11/2022) Impaired instrumental activities of daily living (Acute) Deficit in activities of daily living (ADL) (Acute) Hyperuricemia (Acute) Gout (Chronic) 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) Respiratory failure with hypoxia and hypercapnia (Chronic) Chronic O2 CHF (congestive heart failure) (Acute 02/23/14) Preserved EF (10/2020 & 08/2021 ECHO) Obstructive sleep apnea (Chronic 02/23/14) 2022: Trilogy; Sleep Med Referral, 04/17/2019-->Very severe YARELY; CPAP ([facility]) with continuous O2, new Panda C-Pap 01/2021 Type II diabetes mellitus (Chronic) Hypertension (Chronic) Hyperlipidemia (Chronic) Atrial fibrillation (Chronic) Apixaban Anemia (Chronic) Pulmonary hypertension (Chronic) Dependence on supplemental oxygen (Chronic) YARELY + Pulm HTN Chronic low back pain (Chronic 07/24/15) CT-lumbar spine 2019-- Severe multilevel degenerative changes in the lumbar spine resulting in neural foraminal and central spinal canal stenosis. Chronic anticoagulation (Chronic) AF--Apixaban Risk for falls (Chronic) Sedentary lifestyle (Chronic) B12 deficiency (Chronic) Start B12 injections; elevated MCV-->converted to oral 03/2023 Obesity hypoventilation syndrome (Chronic) Obesity + Severe YARELY + Chronic Hypercapnia Dependent on walker for ambulation (Chronic) Hypomagnesemia (Acute ~07/2021) Mild mitral valve regurgitation (Acute ~08/2021) ECHO Trace tricuspid valve regurgitation (Acute ~08/2021) ECHO Medical History Closed stable burst fracture of ninth thoracic vertebra [facility]03/01[place]23 Diverticulosis Knee pain, left Pressure sore on buttocks Bradycardia Trigger finger, right middle finger Injection: 05/04/2022 Right carpal tunnel syndrome Lipoma Restrictive lung disease (~03/2014) PFTs validated 04/04/2014-->see scanned docs Gout attack (~10/2020) R podagra, first attack 10/2020-->treated with colchine, effective Sciatica of right side without back pain RX Medrol Dietary counseling reviewed sodium levels in her food, how to count mg, goal of 1500 mg daily due to CHF Renal calculi Non obstructive per CT Peptic ulcer of duodenum [facility] [place] reports upper endoscopy; RX Carafate Female hirsutism Carpal tunnel syndrome, bilateral (12/17/16) Lipoma of arm Heme + stool [facility] End[place] Peptic Duodenitis (pathology report); repeat hemoccults NEG 11/2019 Folate deficiency Low 12/2018; resolved 05/2019 labs; discontinued 02/05/2020 Iron deficiency [place] 05[place]23/[place] [facility] discont supp iron & vit c 02/05/2020; Hgb stable and iron constipating; she will obtain dietarily YARELY (obstructive sleep apnea) Spinal stenosis, lumbar HTN (hypertension) Insulin dependent diabetes mellitus Edentulous H/O rotator cuff tear H/O fracture of nose h/o elbow fx Adult body mass index 50.0-59.9 Surgical History History of total knee arthroplasty bilateral History of total abdominal hysterectomy and bilateral salpingo-oophorectomy (~02/1999) History of shoulder surgery Right shoulder repair - 2004 History of carpal tunnel repair Left- 1998 Right- 2017 Colonoscopy - MAC (08/14/16) Biopsy, Temporal Artery (01/18/15) DR.C YOUNG History of total bilateral knee replacement Family History Mother Heart disease Father Heart disease Lung cancer Brother Heart disease AAA (abdominal aortic aneurysm, ruptured) Brother Obesity Son No problems noted. Daughter Stillborn, abnormal Daughter No problems noted. Social History Smoking/Tobacco Use Status: Never Second Hand Exposure: Yes Smoking risk assessment performed?: Yes Alcohol Intake: former Details: never drank heavily but her husbands did Drug use: Never Substance use type: does not use Adopted: No Caregiver/Support person: Yes Foster care: No Household members: children Housing: house Number of Children: 2 number of grandchildren: 8 Communication Needs: Corrective Lenses Education Level: middle school Do you need help understanding health information?: Always current occupation: Retired- [employer] Pets and animals: Yes Pets and animals: cat(s) Sexually active: No Do you think of yourself as: straight/heterosexual Current gender identity: female What is your relationship status?: How often do you talk on the phone with friends or family?: once per week How often do you get together with friends or relatives?: once per week Panel score (0-1 are the most socially isolated patients): 0 What type of physical activity do you participate in: none and sedentary lifestyle Special jakob needs: No Agree to transfusion: Yes Seatbelt use: always In current or past relationships, have you been: made to feel afraid Do you feel safe at home: Yes Do you feel safe in your relationship?: Yes Meds Allergies and Home Medications Allergies Allergy/AdvReac Type Severity Reaction Status Date / Time codeine Allergy Severe Swelling/Ed Verified 01/24/24 14:55 warner furosemide (From Lasix) Allergy Severe Swelling/Ed Verified 01/24/24 14:55 warner morphine Allergy Severe Swelling/Ed Verified 01/24/24 14:55 warner peanut Allergy Severe Nausea Verified 01/24/24 14:55 tree nut Allergy Severe Other (See Verified 01/24/24 14:55 Comment) acetaminophen (From Percocet) Allergy Intermediate ITCHY Verified 01/24/24 14:55 adhesive tape Allergy Intermediate Skin Rash Verified 01/24/24 14:55 oxycodone HCl (From Percocet) Allergy Intermediate ITCHY Verified 01/24/24 14:55 apricot Allergy Unknown Skin Rash Uncoded 01/24/24 14:55 Home Medications ?Medication ?Instructions ?Recorded ?Confirmed ?Type acetaminophen 500 mg tablet 500 mg PO Q6H PRN 12/04/19 05/22/24 History (Tylenol Extra Strength) Oxygen #1 ea 12/19/21 05/16/24 Rx docusate sodium 100 mg capsule 100 mg PO BID PRN 02/10/22 05/22/24 History (Colace) 3XL incontinence briefs #30 ea 05/30/22 05/16/24 Rx Wheelchair #1 ea 06/08/22 05/16/24 Rx polyethylene glycol 3350 17 17 g PO DAILY PRN 02/24/23 05/22/24 History gram/dose oral powder (ClearLax) bismuth subsalicylate 262 mg/15 mL 524 mg PO QID 03/05/23 05/22/24 History oral suspension (Anti-Diarrheal) allopurinol 100 mg tablet See Rx Instructions .Route 08/11/23 05/22/24 Rx .COMPLEX #90 tabs amlodipine 5 mg tablet See Rx Instructions .Route 09/06/23 05/22/24 Rx .COMPLEX #90 tabs clotrimazole 1 % topical cream 1 applic topical BID #45 grams 09/06/23 05/22/24 Rx magnesium oxide 400 mg (241.3 mg 400 mg PO DAILY #90 tabs 09/06/23 05/22/24 Rx magnesium) tablet apixaban 5 mg tablet (Eliquis) See Rx Instructions .Route 10/18/23 05/22/24 Rx .COMPLEX #180 tabs insulin glargine 100 unit/mL (3 14 unit (0.14 mL) subcut HS #30 mL 01/17/24 05/22/24 Rx mL) subcutaneous pen calcium 600 mg (as 1 tab PO DAILY 01/24/24 05/22/24 History carbonate)-vitamin D3 20 mcg (800 unit) tablet Preservision 1 cap PO DAILY 02/17/24 05/22/24 History flash glucose sensor (FreeStyle #2 ea 02/23/24 05/16/24 Rx Bradley 2 Sensor kit) dapagliflozin propanediol 5 mg 5 mg PO QAM #90 tabs 03/06/24 05/22/24 Rx tablet (Farxiga) nystatin 100,000 unit/gram topical 1 applic topical TID #60 grams 03/12/24 05/22/24 Rx powder pen needle, diabetic 31 gauge x #100 ea 03/24/24 05/16/24 Rx 3/16 (BD Ultra-Fine Mini Pen Needle) vitamin B complex-folic acid 0.4 See Rx Instructions .Route 04/10/24 05/22/24 Rx mg tablet (B Complex 1 (with folic .COMPLEX #90 tabs acid)) sennosides 8.6 mg tablet (senna) 8.6 mg PO QHS PRN constipation #30 04/12/24 05/22/24 Rx tabs pantoprazole 40 mg tablet,delayed 40 mg PO DAILY #90 tabs 04/24/24 05/22/24 Rx release (Protonix) insulin aspart U-100 100 unit/mL See Rx Instructions subcut AC DMT2 05/10/24 05/22/24 Rx (3 mL) subcutaneous pen (Novolog #90 mL FlexPen U-100 Insulin aspart) atorvastatin 80 mg tablet 80 mg PO QHS #90 tabs 05/21/24 05/22/24 Rx torsemide 20 mg tablet 20 mg PO DAILY AM #90 tabs 05/21/24 05/22/24 Rx Exam Narrative Exam Narrative: Morbidly obese female laying in bed in no acute distress, ANO x 4, BiPAP mask in place, heart regular rhythm, lungs diminished likely due to body habitus, abdomen obese, soft, nontender, nondistended Results Labs 05/22/24 14:01 05/22/24 14:01 Labs: Laboratory Results - last 24 hr 05/22/24 05/22/24 14:01 16:13 WBC 6.99 RBC 3.32 L Hgb 10.4 L Hct 34.9 L MCV 105 H MCH 31.3 MCHC 29.8 L RDW 20.5 H Plt Count 184 MPV 11.0 Immature Gran % 0.3 Neutrophils % 67.8 Lymphocytes % 18.9 Monocytes % 7.7 Eosinophils % 4.9 Basophils % 0.4 Nucleated RBC % 0.3 Absolute Neutrophils 4.74 Absolute Lymphocytes 1.32 Absolute Monocytes 0.54 Absolute Eosinophils 0.34 Absolute Basophils 0.03 RBC Morphology See Below Polychromasia Present Poikilocytosis 1+ Anisocytosis 2+ Macrocytosis 1+ VBG pH 7.29 L 7.34 VBG pCO2 81 H* 72 H* VBG pO2 31 34 VBG HCO3 39 H 39 H VBG Total CO2 37 H 37 H VBG O2 Saturation 51 61 VBG Base Excess 12 H 13 H Sodium 142 Potassium 4.7 Chloride 100 Carbon Dioxide 39.0 H Anion Gap 3.0 BUN 71 H Creatinine 2.8 H Est GFR (CKD-EPI 2020) 16.87 Glucose 162 H Calcium 9.6 Magnesium 2.1 Total Bilirubin 0.4 AST 17 ALT 15 Alkaline Phosphatase 75 Troponin I 136 H* 137 H* NT-Pro-B Natriuret Pep 6295 H Total Protein 7.6 Albumin 3.2 L Last Vital Signs Temp 98.1 F 05/22/24 16:49 Pulse 89 05/22/24 16:49 Resp 25 H 05/22/24 16:49 BP 114/57 L 05/22/24 16:49 Pulse Ox 90 L 05/22/24 16:49 Time Spent Time spent with Patient: >75 minutes Time was spent: preparing to see the patient(eg.review tests), obtaining and/or reviewing separately otained hiistory, ordering medications,tests, procedures, referring, communicating with other health health care liaison, indepentently interpreting results, counseling the patient and care coordination
[2024-05-22 17:21] LABS: Bilirubin Negative (Negative); Blood Large (Negative); Clarity Cloudy (Clear); Glucose 250 mg/dL (Negative); Ketones Negative (Negative); Leukocyte Esterase Large (Negative); Nitrite Negative (Negative); Specific Gravity 1.015 (1.005-1.025); Urobilinogen 0.2 mg/dL (Up to 0.2); pH 5.5 (5-8)
[2024-05-22 17:26] LABS: C & S Indicated? Yes
[2024-05-22 17:27] LABS: RBC >50 HPF (0-2); WBC >50 HPF (0-5)
--- NOTE | 2024-05-22 17:44 | W.PC.ACHO ---
Registration Status: Primary Language: Preferred Language: ED Information & Data Chief Complaint RespSymp 05/22/24 16:44 Chief Complaint RespSymp 05/22/24 15:41 Other Complaint Urinary 05/22/24 13:44 Triage Note last few days increased SOB 05/22/24 13:44 with increased O2 needs payne when she voids Medical / Surgical History (Last Reviewed 05/16/24 @ 14:02 by Micki Mccain DPM) Bradycardia Closed stable burst fracture of ninth thoracic vertebra Diverticulosis Knee pain, left Pressure sore on buttocks Trigger finger, right middle finger Right carpal tunnel syndrome Lipoma Restrictive lung disease (~03/2014) Gout attack (~10/2020) Sciatica of right side without back pain Dietary counseling Renal calculi Peptic ulcer of duodenum Female hirsutism Carpal tunnel syndrome, bilateral (12/17/16) Lipoma of arm Heme + stool Folate deficiency Iron deficiency YARELY (obstructive sleep apnea) Spinal stenosis, lumbar HTN (hypertension) Insulin dependent diabetes mellitus Edentulous H/O rotator cuff tear H/O fracture of nose h/o elbow fx Adult body mass index 50.0-59.9 (Last Reviewed 05/16/24 @ 14:02 by Micki Mccain DPM) History of total knee arthroplasty History of total abdominal hysterectomy and bilateral salpingo-oophorectomy (~02/1999) History of shoulder surgery History of carpal tunnel repair Colonoscopy - MAC (08/14/16) Biopsy, Temporal Artery (01/18/15) History of total bilateral knee replacement Most Recent Vital Signs Temperature 36.7 C 05/22/24 16:49 Temperature Source Oral 05/22/24 16:49 Pulse 89 05/22/24 16:49 Pulse 79 05/22/24 16:46 Respiratory Rate 25 H 05/22/24 16:49 Respiratory Effort Normal 05/22/24 16:46 Respiratory Depth Normal 05/22/24 16:46 Blood Pressure 114/57 L 05/22/24 16:49 Blood Pressure Mean 76 05/22/24 16:46 Pulse Oximetry 90 L 05/22/24 16:49 Oxygen Delivery Method Bi-pap 05/22/24 15:50 Oxygen Flow Rate 6 05/22/24 13:44 Fraction of Inspired Oxygen (FIO2) 30 05/22/24 14:39 Allergies codeine Allergy (Severe, Verified 01/24/24 14:55) Swelling/Edema furosemide (From Lasix) Allergy (Severe, Verified 01/24/24 14:55) Swelling/Edema morphine Allergy (Severe, Verified 01/24/24 14:55) Swelling/Edema peanut Allergy (Severe, Verified 01/24/24 14:55) Nausea tree nut Allergy (Severe, Verified 01/24/24 14:55) Other (See Comment) Vomiting and Itching acetaminophen (From Percocet) Allergy (Intermediate, Verified 01/24/24 14:55) ITCHY adhesive tape Allergy (Intermediate, Verified 01/24/24 14:55) Skin Rash oxycodone HCl (From Percocet) Allergy (Intermediate, Verified 01/24/24 14:55) ITCHY apricot Allergy (Unknown, Uncoded 01/24/24 14:55) Skin Rash per pt. report Precautions Isolation Standard precaution 05/22/24 16:44 Diagnostics 05/22/24 05/22/24 05/22/24 Range/Units 17:15 17:05 16:33 WBC (4.4-10.8) 10^3/uL RBC (3.93-5.22) 10^6/uL Hgb (11.2-15.7) g/dL Hct (36.0-46.0) % MCV (80-95) fL MCH (27.0-33.0) pg MCHC (32.0-36.0) % RDW (11.7-14.6) % Plt Count (130-400) 10^3/uL MPV (8.0-11.0) fL Immature Gran % % Neutrophils % % Lymphocytes % % Monocytes % % Eosinophils % % Basophils % % Nucleated RBC % (0.0-0.3) % Absolute Neutrophils (1.2-6.7) 10^3/uL Absolute Lymphocytes (1.2-3.4) 10^3/uL Absolute Monocytes (0.1-0.8) 10^3/uL Absolute Eosinophils (0.0-0.7) 10^3/uL Absolute Basophils (0.0-0.2) 10^3/uL RBC Morphology Polychromasia Poikilocytosis Anisocytosis Macrocytosis VBG pH (7.31-7.41) VBG pCO2 (41-51) mmHg VBG pO2 mmHg VBG HCO3 (23-28) mmol/L VBG Total CO2 (24-29) mmol/L VBG O2 Saturation % VBG Base Excess (-2-3) mmol/L Sodium (136-145) mmol/L Potassium (3.5-5.1) mmol/L Chloride (98-107) mmol/L Carbon Dioxide (21.0-32.0) mmol/L Anion Gap (3-11) mmol/L BUN (7-18) mg/dL Creatinine (0.55-1.02) mg/dL Est GFR (CKD-EPI 2020) (mL/min/1.73m2) Glucose (74-106) mg/dL Calcium (8.5-10.1) mg/dL Magnesium (1.8-2.4) mg/dL Total Bilirubin (0.2-1.0) mg/dL AST (15-37) U/L ALT (14-59) U/L Alkaline Phosphatase (46-116) U/L Troponin I Pending (<or=51) ng/L NT-Pro-B Natriuret Pep (<300) pg/mL Total Protein (6.4-8.2) g/dL Albumin (3.4-5.0) g/dL Urine Color Yellow (Yellow) Urine Clarity Cloudy (Clear) Urine pH 5.5 (5-8) Ur Specific [place] 1.015 (1.005-1.025) Urine Protein 100 H (Neg-Trace) mg/dL Urine Ketones Negative (Negative) mg/dL Urine Blood Large H (Negative) Urine Nitrite Negative (Negative) Urine Bilirubin Negative (Negative) Urine Urobilinogen 0.2 (Up to 0.2) mg/dL Ur Leukocyte Esterase Large H (Negative) Urine RBC >50 H (0-2) HPF Urine WBC >50 H (0-5) HPF Ur Epithelial Cells Not Applicable Urine Crystals Not Applicable Urine Bacteria Not Applicable Urine Mucus Not Applicable Ur Culture Indicated? Yes Urine Glucose 250 H (Negative) mg/dL COVID-19 Source Pending SARS-CoV-2 (PCR) Pending Influenza Type A (PCR) Pending Influenza Type B (PCR) Pending RSV (PCR) Pending 05/22/24 05/22/24 Range/Units 16:13 14:01 WBC 6.99 (4.4-10.8) 10^3/uL RBC 3.32 L (3.93-5.22) 10^6/uL Hgb 10.4 L (11.2-15.7) g/dL Hct 34.9 L (36.0-46.0) % MCV 105 H (80-95) fL MCH 31.3 (27.0-33.0) pg MCHC 29.8 L (32.0-36.0) % RDW 20.5 H (11.7-14.6) % Plt Count 184 (130-400) 10^3/uL MPV 11.0 (8.0-11.0) fL Immature Gran % 0.3 % Neutrophils % 67.8 % Lymphocytes % 18.9 % Monocytes % 7.7 % Eosinophils % 4.9 % Basophils % 0.4 % Nucleated RBC % 0.3 (0.0-0.3) % Absolute Neutrophils 4.74 (1.2-6.7) 10^3/uL Absolute Lymphocytes 1.32 (1.2-3.4) 10^3/uL Absolute Monocytes 0.54 (0.1-0.8) 10^3/uL Absolute Eosinophils 0.34 (0.0-0.7) 10^3/uL Absolute Basophils 0.03 (0.0-0.2) 10^3/uL RBC Morphology See Below Polychromasia Present Poikilocytosis 1+ Anisocytosis 2+ Macrocytosis 1+ VBG pH 7.34 7.29 L (7.31-7.41) VBG pCO2 72 H* 81 H* (41-51) mmHg VBG pO2 34 31 mmHg VBG HCO3 39 H 39 H (23-28) mmol/L VBG Total CO2 37 H 37 H (24-29) mmol/L VBG O2 Saturation 61 51 % VBG Base Excess 13 H 12 H (-2-3) mmol/L Sodium 142 (136-145) mmol/L Potassium 4.7 (3.5-5.1) mmol/L Chloride 100 (98-107) mmol/L Carbon Dioxide 39.0 H (21.0-32.0) mmol/L Anion Gap 3.0 (3-11) mmol/L BUN 71 H (7-18) mg/dL Creatinine 2.8 H (0.55-1.02) mg/dL Est GFR (CKD-EPI 2021) 16.87 (mL/min/1.73m2) Glucose 162 H (74-106) mg/dL Calcium 9.6 (8.5-10.1) mg/dL Magnesium 2.1 (1.8-2.4) mg/dL Total Bilirubin 0.4 (0.2-1.0) mg/dL AST 17 (15-37) U/L ALT 15 (14-59) U/L Alkaline Phosphatase 75 (46-116) U/L Troponin I 137 H* 136 H* (<or=51) ng/L NT-Pro-B Natriuret Pep 6295 H (<300) pg/mL Total Protein 7.6 (6.4-8.2) g/dL Albumin 3.2 L (3.4-5.0) g/dL Urine Color (Yellow) Urine Clarity (Clear) Urine pH (5-8) Ur Specific [place] (1.005-1.025) Urine Protein (Neg-Trace) mg/dL Urine Ketones (Negative) mg/dL Urine Blood (Negative) Urine Nitrite (Negative) Urine Bilirubin (Negative) Urine Urobilinogen (Up to 0.2) mg/dL Ur Leukocyte Esterase (Negative) Urine RBC (0-2) HPF Urine WBC (0-5) HPF Ur Epithelial Cells Urine Crystals Urine Bacteria Urine Mucus Ur Culture Indicated? Urine Glucose (Negative) mg/dL COVID-19 Source SARS-CoV-2 (PCR) Influenza Type A (PCR) Influenza Type B (PCR) RSV (PCR) 05/22/24 17:15 Urine Culture - Pending Urine - Reflex from Ua Intake and Output - 24 Hour Total 05/22/24 13:38 thru 05/22/24 13:44 Weight 109 kg Falls Risk Assessment History of Falls Fall During Stay 05/22/24 16:46 Contributing Factors Impairments 05/22/24 16:46 Ambulatory Aids Uses ambulatory device + 05/22/24 16:46 Tubes/Lines With any additional score 05/22/24 16:46 Gait Evaluation W/any additional score 05/22/24 16:46 Fall Total Score 98 05/22/24 16:46 Level of Risk Maximum Risk 05/22/24 16:46 Problems (Last Reviewed 05/16/24 @ 14:02 by Micki Mccain DPM) Insulin dependent type 2 diabetes mellitus (Acute) Acute on chronic respiratory failure with hypoxia and hypercapnia (Acute) 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 Information / Comments: Report received from: Carlee HOYT
[2024-05-22 17:48] LABS: COVID-19 PCR Negative (Negative); Influenza A PCR Negative (Negative); Influenza B PCR Negative (Negative); RSV PCR Negative (Negative)
[2024-05-22 17:50] LABS: Source Nasopharynx
[2024-05-22 18:05] LABS: Troponin I 146 ng/L (<or=51)
[2024-05-22] MEDS: Apixaban 5 MG TAB PO (19:26)
[2024-05-22] MEDS: Atorvastatin 40 MG TAB 80 MG PO (19:26)
[2024-05-22] MEDS: Insulin Glargine 300 UNITS/3 ML PEN 14 UNITS SC (23:49)
[2024-05-23] VITALS (29 sets, daily range): BP systolic 101–136; BP diastolic 53–94; PULSE 61–124; RESP 5–25; TEMP 36.3–37; O2SAT 77–95
[2024-05-23] MEDS: Acetaminophen 325 MG TAB PO ×3 (00:20→20:25)
[2024-05-23 06:54] LABS: HCT 30.7 % (36.0-46.0); HGB 9.5 g/dL (11.2-15.7); MCH 31.7 pg (27.0-33.0); MCHC 30.9 % (32.0-36.0); MCV 102 fL (80-95); MPV 10.8 fL (8.0-11.0); Platelet Count 161 10^3/uL (130-400); RDW 20.2 % (11.7-14.6); RDW-SD 76.4 fL
[2024-05-23 07:26] LABS: ALT 12 U/L (14-59); AST 15 U/L (15-37); Albumin 2.9 g/dL (3.4-5.0); Alkaline Phosphatase 68 U/L (46-116); Anion Gap 3.2 mmol/L (3-11); BUN 70 mg/dL (7-18); Bilirubin, Total 0.7 mg/dL (0.2-1.0); CO2 37.8 mmol/L (21.0-32.0); CREATININE 2.9 mg/dL (0.55-1.02); Calcium 9.6 mg/dL (8.5-10.1); Chloride 103 mmol/L (98-107); Estimated GFR 16.17 (mL/min/1.73m2); Glucose 96 mg/dL (74-106); Potassium 4.6 mmol/L (3.5-5.1); Sodium 144 mmol/L (136-145); Total Protein 6.7 g/dL (6.4-8.2)
[2024-05-23] MEDS: Bumetanide 1 MG/4 ML VIAL IVP ×2 (08:13→17:24)
[2024-05-23] MEDS: Apixaban 5 MG TAB PO ×2 (08:14→20:26)
[2024-05-23] MEDS: Pantoprazole 40 MG TABCR PO (08:14)
[2024-05-23] MEDS: Allopurinol 100 MG TAB PO (08:14)
--- NOTE | 2024-05-23 08:52 | RESPIRATORY ---
Addendum entered by Maynor Mendosa 05/23/24 18:28: Trilogy machine is through [facility] Original Note: Pt's own Panda Respironics Trilogy Machine AVAPS-AE Passive circuit VT: 400 Max Pressure: 20 EPAP Min/Max: 5/10 PS Min/Max: 5/15 Breath Rate: Auto Pt uses mouth mask with integrated nasal pillow. 4L O2 bleed in at baseline. No humidification.
--- NOTE | 2024-05-23 09:11 | INITIAL_ITS ---
Date of service: 05/23/24 Time of Service: 09:11 Care Management Initial Assmt Initial Assessment Reason for Hospitalization: Hypoxic respiratory Failure Functional Status/Living Situation Patient Presentation: Mohan was sitting up in bed when CM met with her. She was alert and oriented and easily engaged with CM. Mohan was admitted with acute hypoxic respiratory failure. She is on 4L/min of nasal O2 at baseline and required Bipap on admission. Mohan informed CM that she is feeling better today and is back to 4L/min of O2. Mohan lives in a mobile home in [place] with her so Blu who is her caregiver. She has CFC moderate needs and has applied for LTM to enable Blu to be compensated for the care he provides. Mohan has a wheelchair, FWW, cane and home O2 and a Trilogy machine. Mohan is able to sponge bathe herself but Blu helps her get dressed and does the cooking, shopping and perinatal educator. 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 home O2, Trilogy Advance Directives Advance Directives: Do you have an Advance Directive: Y 08/24/23 13:50 AD On File at [facility]: Y 08/24/23 13:50 Date Asked 05/22/24 05/22/24 17:52 AD Date Reviewed 05/22/24 05/22/24 13:57 COLST On File at [facility] No 08/24/23 13:50 COLST Date Scanned Code Status Resuscitation Status Full Code Portal Pt does not currently have a portal and education provided: Yes Insurance Coverage/Financial Issues Insurance: Medicare Medicaid Financial assist 10 Care Team Visit Care Team Role Provider Type Laverne Sung NP Primary Care Provider NURSE PRACTITIONER JAYDEN Perera Emergency Provider PHYSICIANS CABLE COVERER Wilber Rodríguez MD Admit Provider [facility] STAFF PHYSICIAN Attending Provider Discharge Potential Discharge Needs: PCP F/U Appt Anticipated Barriers to Discharge: None Identified Patient/Family Education Needs: Review discharge instructions, discuss Ask Me Three Transportation: Private vehicle Plan: Anticipate Mohan will be discharged home with a resumption of services she receives through [facility]. She will follow up with her community providers and plan of care and transport with her son. CM will follow and continue to assess for discharge needs. Social Determinants of Health Screening Will the Patient Participate in the Screening?: Declined to provide PFSH All Active Problems Acute hypercapnic respiratory failure (Acute) Insulin dependent type 2 diabetes mellitus (Acute) Acute on chronic respiratory failure with hypoxia and hypercapnia (Acute) History of frostbite (Acute) Nerve pain (Acute) Edema (Acute) Macular degeneration of both eyes (Acute) Diabetic peripheral neuropathy (Acute) ACP (advance care planning) (Acute) Right hand paresthesia (Acute) Palliative care patient (Acute) Ureteral stone (Acute ~11/2022) Nephrostomy tube Right thyroid nodule (Acute ~11/2022) Impaired instrumental activities of daily living (Acute) Deficit in activities of daily living (ADL) (Acute) Hyperuricemia (Acute) Gout (Chronic) 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) Respiratory failure with hypoxia and hypercapnia (Chronic) Chronic O2 CHF (congestive heart failure) (Acute 02/23/14) Preserved EF (10/2020 & 08/2021 ECHO) Obstructive sleep apnea (Chronic 02/23/14) 2022: Trilogy; Sleep Med Referral, 04/17/2019-->Very severe YARELY; CPAP ([facility]) with continuous O2, new Panda C-Pap 01/2021 Type II diabetes mellitus (Chronic) Hypertension (Chronic) Hyperlipidemia (Chronic) Atrial fibrillation (Chronic) Apixaban Anemia (Chronic) Pulmonary hypertension (Chronic) Dependence on supplemental oxygen (Chronic) YARELY + Pulm HTN Chronic low back pain (Chronic 07/24/15) CT-lumbar spine 2019-- Severe multilevel degenerative changes in the lumbar spine resulting in neural foraminal and central spinal canal stenosis. Chronic anticoagulation (Chronic) AF--Apixaban Risk for falls (Chronic) Sedentary lifestyle (Chronic) B12 deficiency (Chronic) Start B12 injections; elevated MCV-->converted to oral 03/2023 Obesity hypoventilation syndrome (Chronic) Obesity + Severe YARELY + Chronic Hypercapnia Dependent on walker for ambulation (Chronic) Hypomagnesemia (Acute ~07/2021) Mild mitral valve regurgitation (Acute ~08/2021) ECHO Trace tricuspid valve regurgitation (Acute ~08/2021) ECHO Medical History Bradycardia Closed stable burst fracture of ninth thoracic vertebra [facility]-03/01/23 Diverticulosis Knee pain, left Pressure sore on buttocks Trigger finger, right middle finger Injection: 05/04/2022 Right carpal tunnel syndrome Lipoma Restrictive lung disease (~03/2014) PFTs validated 04/04/2014-->see scanned docs Gout attack (~10/2020) R podagra, first attack 10/2020-->treated with colchine, effective Sciatica of right side without back pain RX Medrol Dietary counseling reviewed sodium levels in her food, how to count mg, goal of 1500 mg daily due to CHF Renal calculi Non obstructive per CT Peptic ulcer of duodenum [facility] Path reports upper endoscopy; RX Carafate Female hirsutism Carpal tunnel syndrome, bilateral (12/17/16) Lipoma of arm Heme + stool [facility] Upper GI Endoscopy Peptic Duodenitis (pathology report); repeat hemoc cults NEG 11/2019 Folate deficiency Low 12/2018; resolved 05/2019 labs; discontinued 02/05/2020 Iron deficiency EGD 05/23/19 at [facility]; discont supp iron & vit c 02/05/2020; Hgb stable and iron constipating; she will obtain dietarily YARELY (obstructive sleep apnea) Spinal stenosis, lumbar HTN (hypertension) Insulin dependent diabetes mellitus Edentulous H/O rotator cuff tear H/O fracture of nose h/o elbow fx Adult body mass index 50.0-59.9 Surgical History History of total knee arthroplasty bilateral History of total abdominal hysterectomy and bilateral salpingo-oophorectomy (~02/1999) History of shoulder surgery Right shoulder repair - 2004 History of carpal tunnel repair Left- 1998 Right- 2018 Colonoscopy - MAC (08/14/16) Biopsy, Temporal Artery (01/18/15) DR.C YOUNG History of total bilateral knee replacement Family History Mother Heart disease Father Heart disease Lung cancer Brother Heart disease AAA (abdominal aortic aneurysm, ruptured) Brother Obesity Son No problems noted. Daughter Stillborn, abnormal Daughter No problems noted. 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 Pets and animals: Yes Pets and animals: cat(s) Sexually active: No Do you think of yourself as: straight/heterosexual Current gender identity: female What is your relationship status?: How often do you talk on the phone with friends or family?: once per week How often do you get together with friends or relatives?: once per week Panel score (0-1 are the most socially isolated patients): 0 What type of physical activity do you participate in: none and sedentary lifestyle Special jakob needs: No Agree to transfusion: Yes Seatbelt use: always In current or past relationships, have you been: made to feel afraid Do you feel safe at home: Yes Do you feel safe in your relationship?: Yes
--- NOTE | 2024-05-23 10:08 | DI.US_ITS ---
APPROVED REPORT EXAM: Comprehensive 2D, Doppler, and color-flow Echocardiogram Patient Location: In-Patient Room/Bed: 219 Fitting Room Associate: Dominic Melton RDCS (AE) Indications: CHF exacerbation Other Information Study Quality: Good Conclusion Normal left ventricular wall thickness and chamber size. Ejection fraction is 60 to 65%. Wall motio n is normal Normal right ventricular size and function Both atria are severely enlarged Aortic valve is trileaflet and mildly sclerotic without stenosis or regurgitation Normal mitral valve with mild regurgitation Mild to moderate tricuspid regurgitation. There is severe pulmonary hypertension with an estimated r ight ventricular systolic pressure of 69 mmHg Wall motion Left Ventricle The left ventricle is normal size. Left ventricular systolic function is normal. The left ventricular ejection fraction is within the normal range. There is normal left ventricular wall thickness. There is normal LV segmental wall motion. There is no ventricular septal defect visualized. LVEF is 60-65% . Right Ventricle The right ventricle is normal size. The right ventricular systolic function is normal. Atria Left atrium is severely dilated. Right atrium is severely dilated. Aortic Valve The aortic valve is mildly sclerotic. Aortic valve is trileaflet. There is no aortic valvular stenosi s. No aortic regurgitation is present. Mitral Valve The mitral valve is normal in structure. No evidence of mitral valve stenosis. Mild mitral regurgitat ion. Tricuspid Valve The tricuspid valve is normal in structure. There is no tricuspid valve stenosis. Mild to moderate tr icuspid regurgitation. The RVSP is 69.0 mmHg. Pulmonic Valve The pulmonary valve is normal in structure. There is no pulmonic valvular stenosis. Moderate pulmonic regurgitation. Great Vessels The aortic root is normal in size. The ascending aorta is normal in size. Aortic arch is not well vis ualized. IVC is normal in size and collapses >50% with inspiration. Pericardium Trace pericardial effusion. 2D Dimensions IVSD d PLAX 0.82 cm F: 0.6-1.0 Ao Root d 3.03 cm F: 2.7 - 3.3 LVPW d PLAX 0.80 cm F: 0.6 - 1.0 Ao Asc Diam d 3.32 cm F: 2.3 - 3.1 LVID d PLAX 4.69 cm F: 3.8 - 5.2 LVDs 3.02 cm F: 2.2 - 3.5 LV EF Teichholz 65.1 % FS 35.62 % LV EDV (Teich) 101.9 mL LV ESV (Teich) 35.6 mL Stroke Vol Index (Teich) 32.03 M-Mode TAPSE 1.95 cm (M/F) >1.7 Auto EF LV EDV A4C 97.4 mL LV EDV A2C 84.7 mL LV EDV BP 90.4 mL LV ESV A4C 34.3 mL LV ESV A2C 32.6 mL LV ESV BP 33.8 mL LVEF(%) A4C 64.8 % LVEF(%) A2C 61.5 % LVEF(%) BP 62.7 % LV SV A4C 63.1 ml LV SV A2C 52.1 ml LV SV BP 56.7 ml LV CO A4C 5.9 L/min LV CO A2C 4.2 L/min LV CO BP 5.1 L/min HR A4C 94.00 BPM HR A2C 80.37 BPM LV EDV Index (BP) LA Volume LA Length A4C 7.0 cm LA Length A2C 5.5 cm LA Area A4C s 23.76 cm2 LA Area A2C s 15.49 cm2 LA Vol A4C A-L 68.61 mL LA Vol A2C A-L 36.93 mL LA Vol Biplane A-L 56.6 mL LA Vol/BSA A4C A-L LA Vol/BSA A2C A-L LA Vol/BSA BP A-L 27.4 mL/m2 LA Vol A4C MOD 63.0 mL LA Vol A2C MOD 35.1 mL LA Vol BP MOD 52.5 mL RA Volume RA Area A4C 23.5 cm2 RA ESV A4C (A-L) 74.0mL RA Vol/BSA A4C A-L RA Length A4C 6.3 cm RA ESV A4C (MOD) 68.9mL LV Diastology MV E' medial 0.113 (>0.07 m/s) MV E Vmax 1.29 (0.4-1.3 m/s) MV E' lateral 0.138 (>0.1 m/s) Aortic Valve AoV Vmax 1.29 m/s LVOT Vmax 1.04 m/s AoV Peak Grad 6.7 mmHg LVOT Peak Grad 4.4 mmHg AoV Area (Vmax) 2.44 cm2 LVOT VTI 0.229 m AoV VTI 0.256 m LVOT Mean Grad 1.9 mmHg AoV Mean Tunde. 0.91 m/s LVOT SV 69.13 mL AoV Mean Grad 3.8 mmHg LVOT Diam s 1.95 cm AoV Area (VTI) 2.70 cm2 AV Regurg Peak Gr. 6.70 mmHg Velocity Ratio 0.81 Mitral Valve MV Vmax TIPS 1.52 m/s MV Mean Grad 2.5 (<2mmHg) MV VTI 0.289 m Pulmonary Valve PV Vmax 0.79 (0.5-1.5 m/s) RVOT Vmax 0.69 m/s PV Peak Grad 2.5 mmHg RVOT Peak Gr. 1.9 mmHg PV Mean Tunde 0.55 m/s RVOT VTI 0.126 m PV Mean Grad 1.3 mmHg RVOT Mean Gr. 1.0 mmHg [place] ED Velocity 1.39 m/s [place] ED Grad 7.8 mmHg Tricuspid Valve RA Pressure 3.00 mmHg TR Vmax 4.06 m/s TR Peak Grad 65.9 mmHg RVSP (TR) 69.0 mmHg
[2024-05-23] MEDS: Insulin Aspart 300 UNITS/3 ML PEN SC ×3 (12:11→22:17)
--- NOTE | 2024-05-23 13:18 | W.PM.PROGNOT ---
Date of Service Date of service: 05/23/24 Time of Service: 13:18 Assessment and Plan Assessment and plan (1) Acute on chronic respiratory failure with hypoxia and hypercapnia: Status: Acute Assessment and plan: - Patient has documented history of chronic hypoxic and hypercapnic respiratory failure normally on 4 L nasal cannula -Additionally she has history of noncompliance with her trilogy -Was found to be both hypoxic and hypercapnic in the emergency department and placed on BiPAP -Initially required 6 L through BiPAP, baseline is 4 L nasal cannula -pH and CO2 on VBG improved after 2 hours of BiPAP therapy -Overnight patient was transition to her home trilogy machine and has had significant improvement, and is now back to her baseline 4 L nasal cannula while awake -May also be secondary to CHF exacerbation (see below for details) (2) CHF (congestive heart failure): Status: Acute Assessment and plan: - History of HFpEF, the last echo was in 2021 -Updated echocardiogram on 05/23/2024 shows EF of 60 to 65%, bilaterally enlarged atria, mild to moderate tricuspid regurgitation with severe pulmonary hypertension with estimated right ventricular systolic pressure of 69 mmHg -proBNP about 6000, similar patient previous hospitalization -Received 1 mg IV Bumex in the emergency department, will continue twice daily -Strict I's and O's (3) Obstructive sleep apnea: Status: Chronic Assessment and plan: - In combination with obesity hypoventilation syndrome -Will discuss with the patient about her trilogy use and compliance (4) CKD stage 4 due to type 2 diabetes mellitus: Status: Chronic Assessment and plan: - Creatinine appears baseline at this time -Will monitor given increased diuretic usage during hospitalization for CHF exacerbation as noted above (5) Atrial fibrillation: Status: Chronic Assessment and plan: - Rate controlled, will continue home Eliquis (6) Pulmonary hypertension: Status: Chronic Assessment and plan: - Likely secondary to YARELY and OHS as noted above (7) Hypertension: Status: Chronic Assessment and plan: - Continue home amlodipine 5 mg daily (8) Insulin dependent type 2 diabetes mellitus: Status: Acute Assessment and plan: - Continue home Lantus 14 units at bedtime -Sliding scale insulin, carb consistent diet (9) Hyperlipidemia: Status: Chronic Assessment and plan: - Continue home statin 80 mg Lipitor at bedtime Subjective Subjective Interval history since last seen: Patient states that she is feeling much better today and is almost back to her baseline respiratory status. She has no complaints concerns at this time. Exam Narrative Exam Narrative: Morbidly obese female laying in bed in no acute distress, ANO x 4, [address] nasal cannula in place, heart regular rhythm, lungs diminished likely due to body habitus, abdomen obese, soft, nontender, nondistended Objective Last Vital Signs Temp 98.4 F 05/23/24 07:20 Pulse 83 05/23/24 08:09 Resp 19 05/23/24 08:09 BP 129/94 H 05/23/24 08:09 Pulse Ox 82 L 05/23/24 08:09 Laboratory Results - last 24 hr 05/22/24 05/22/24 05/22/24 14:01 16:13 16:55 WBC 6.99 RBC 3.32 L Hgb 10.4 L Hct 34.9 L MCV 105 H MCH 31.3 MCHC 29.8 L RDW 20.5 H Plt Count 184 MPV 11.0 Immature Gran % 0.3 Neutrophils % 67.8 Lymphocytes % 18.9 Monocytes % 7.7 Eosinophils % 4.9 Basophils % 0.4 Nucleated RBC % 0.3 Absolute Neutrophils 4.74 Absolute Lymphocytes 1.32 Absolute Monocytes 0.54 Absolute Eosinophils 0.34 Absolute Basophils 0.03 RBC Morphology See Below Polychromasia Present Poikilocytosis 1+ Anisocytosis 2+ Macrocytosis 1+ VBG pH 7.29 L 7.34 VBG pCO2 81 H* 72 H* VBG pO2 31 34 VBG HCO3 39 H 39 H VBG Total CO2 37 H 37 H VBG O2 Saturation 51 61 VBG Base Excess 12 H 13 H Sodium 142 Potassium 4.7 Chloride 100 Carbon Dioxide 39.0 H Anion Gap 3.0 BUN 71 H Creatinine 2.8 H Est GFR (CKD-EPI 2020) 16.87 Glucose 162 H Calcium 9.6 Magnesium 2.1 Total Bilirubin 0.4 AST 17 ALT 15 Alkaline Phosphatase 75 Troponin I 136 H* 137 H* NT-Pro-B Natriuret Pep 6295 H Total Protein 7.6 Albumin 3.2 L Urine Color Urine Clarity Urine pH Ur Specific [place] Urine Protein Urine Ketones Urine Blood Urine Nitrite Urine Bilirubin Urine Urobilinogen Ur Leukocyte Esterase Urine RBC Urine WBC Ur Epithelial Cells Urine Crystals Urine Bacteria Urine Mucus Ur Culture Indicated? Urine Glucose COVID-19 Source Nasopharynx SARS-CoV-2 (PCR) Negative Influenza Type A (PCR) Negative Influenza Type B (PCR) Negative RSV (PCR) Negative 05/22/24 05/22/24 05/23/24 17:05 17:15 05:35 WBC 5.50 RBC 3.00 L Hgb 9.5 L Hct 30.7 L MCV 102 H MCH 31.7 MCHC 30.9 L RDW 20.2 H Plt Count 161 MPV 10.8 Immature Gran % Neutrophils % Lymphocytes % Monocytes % Eosinophils % Basophils % Nucleated RBC % Absolute Neutrophils Absolute Lymphocytes Absolute Monocytes Absolute Eosinophils Absolute Basophils RBC Morphology Polychromasia Poikilocytosis Anisocytosis Macrocytosis VBG pH VBG pCO2 VBG pO2 VBG HCO3 VBG Total CO2 VBG O2 Saturation VBG Base Excess Sodium 144 Potassium 4.6 Chloride 103 Carbon Dioxide 37.8 H Anion Gap 3.2 BUN 70 H Creatinine 2.9 H Est GFR (CKD-EPI 2020) 16.17 Glucose 96 Calcium 9.6 Magnesium Total Bilirubin 0.7 AST 15 ALT 12 L Alkaline Phosphatase 68 Troponin I 146 H* NT-Pro-B Natriuret Pep Total Protein 6.7 Albumin 2.9 L Urine Color Yellow Urine Clarity Cloudy Urine pH 5.5 Ur Specific [place] 1.015 Urine Protein 100 H Urine Ketones Negative Urine Blood Large H Urine Nitrite Negative Urine Bilirubin Negative Urine Urobilinogen 0.2 Ur Leukocyte Esterase Large H Urine RBC >50 H Urine WBC >50 H Ur Epithelial Cells Not Applicable Urine Crystals Not Applicable Urine Bacteria Not Applicable Urine Mucus Not Applicable Ur Culture Indicated? Yes Urine Glucose 250 H COVID-19 Source SARS-CoV-2 (PCR) Influenza Type A (PCR) Influenza Type B (PCR) RSV (PCR) Time Spent with Patient Time Spent with Patient: >50 minutes Time was spent: preparing to see the patient(eg.review tests), obtaining and/or reviewing separately otained hiistory, ordering medications,tests, procedures, referring, communicating with other health school child care attendant, indepentently interpreting results, counseling the patient and care coordination
--- NOTE | 2024-05-23 16:00 | PCNE_ITS ---
Date of service: 05/23/24 Time of Service: 15:00 History of Present Illness Narrative: Ms. Preston is a 78 y/o F currently hospitalized at [facility] in ICU 2/2 acute on chronic resp failure w/acute CHF exacerbation; PMHx sig for chronic resp failure w/hypercapnea, CKD (stage4), YARELY, A fib, HTN, HLD, DM, obesity, gout Hospital Course: presented to ED on 05/22 after a few days of feeling worsening dyspnea, low appetite; work up consistent for acute CHF exacerbation w/fluid overload, hypercapnea, tolerating BiPAP well, diuresis appropriate; strict monitoring of I/Os, repeat ECHO w/reserved EF of 60-65%, severe pulm HTN, tricuspid regurg; she is improving today, near her baseline, on 4L NC; - she is struggling w/using BiPAP, it is uncomfortable; she did use it last night, but needed help w/ICU staff; appears well today, joking, advocating for self Mohan is aware she is in the hospital r/t hypercarbia; she states she is also concerned w/low appetite w/N/V prior to presenting to ED; no N/V since arrival, however appetite is still low, even her favorite foods don't sound appetizing. - she has been sleeping more at home, more day time napping as well. she states her Trilogy mask is more comfortable than BiPAP and would prefer to wear this. She does not use it often at home, aware of goal of 4hrs/day, she uses not daily, for 1-2hrs at a time; at this time, she denies any concerns w/using Trilogy at home. - she has been experiencing more back pain lately, wonders if it is related to her h/o T9 fracture, she has been experiencing more peripheral neuropathy pains, was seen by podiatry whom Rx'd her a gabapentin cream and oral B12 supplements which should be arriving Feels she is able to navigate home safely, would prefer to return home vs a SNF, did not have a pleasant experience there. her son Abdias provides significant support at home, all IADLs, and has historically been able to assist w/ADL support post previous hospitalizations. she wants to make sure her home team is aware she is hospitalized she wonders about where the payment for the [facility] is, so she can pay her son Abdias; [facility] enrolled, JUDAH Simpson f/u w/Dr. Zavala 06/05; f/u PCP next month, wants to consider HH PT again She is aware she is a full code, she would want all life sustaining treatment at this time. While she would prefer not to be transferred to a tertiary facility, she would want this if it were life and . Assessment and Plan Assessment and plan (1) Acute on chronic respiratory failure with hypoxia and hypercapnia: Status: Acute Assessment and plan: improving - currently on baseline NC 4L - struggled w/BiPAP overnight, itchy, painful, uncomfortable; - reports her Trilogy is more comfortable for her, she has no complaints with this today, would prefer of BiPAP; she does have Trilogy at bedside reviewed importance of using Trilogy as recommended to avoid future exacerbations as able (2) CHF (congestive heart failure): Status: Acute Assessment and plan: potentially acute CHF exacerbation w/fluid volume overload; tolerating diuresis appropriately repeat ECHO w/ EF 60-65%, energed atria bilat, mild/mod tricuspid regur w/severe pulmHTN continue strict I/Os; Bumex 1mg IV BID - previously on torsemide at home, managed by PCP (3) Edema: Status: Acute Assessment and plan: as above multifactorial (4) Diabetic peripheral neuropathy: Status: Acute Assessment and plan: new med gabapentin cream from podiatry - previously aware, will continue to monitor (5) Impaired instrumental activities of daily living: Status: Acute Assessment and plan: kendall Calero providing all assistance in home [facility] enrolled, CM to contact JUDAH Lea to confirm moderate vs high needs - caregiving payment assistance (6) Deficit in activities of daily living (ADL): Status: Acute Assessment and plan: as above - previously w/some assistance w/dressing, transfers; otherwise independent recommend PT consult, w/preference for HH referral on discharge (7) CKD stage 4 due to type 2 diabetes mellitus: Status: Chronic Assessment and plan: at baseline - previously reviewed w/pt, would want to consider dialysis will continue to revew (8) Palliative care patient: Status: Acute Assessment and plan: PC will continue to follow, inpatient on Wed as appropriate, outpatient visit previously scheduled f/u PCP May (9) ACP (advance care planning): Status: Acute Assessment and plan: reviewed current CODE status preference, would want to remain full code, including CPR and trial intubation, consistent w/previous conversations, would want every opportunity to be kept alive - reviewed balance of medical interventions for LST increase in severity/invasiveness, with less efficacy, chema when not balanced w/patient's own health maintenance/management; need to balance more of Mohan's using Trilogy/other LST treatments to avoid exacerbations/hospitalizations, to avoid needing intubation, transfers, CPR, etc; reviewed statements about not wanting transfer to , would want to remain at [facility] as able, but if needed tertiary care for LST would want a transfer reviewed current hospitalization c/b not using Trilogy, earlier interventions w/fluid overload; to continue to review reduced appetite spent 15m w/ACP called [facility] home care team ilia Griffin informing of Mohan's hospitalization; PCP office aware Review of Systems Narrative: as per HPI PFSH All Active Problems Acute hypercapnic respiratory failure (Acute) Insulin dependent type 2 diabetes mellitus (Acute) Acute on chronic respiratory failure with hypoxia and hypercapnia (Acute) History of frostbite (Acute) Nerve pain (Acute) Edema (Acute) Macular degeneration of both eyes (Acute) Diabetic peripheral neuropathy (Acute) ACP (advance care planning) (Acute) Right hand paresthesia (Acute) Palliative care patient (Acute) Ureteral stone (Acute ~11/2022) Nephrostomy tube Right thyroid nodule (Acute ~11/2022) Impaired instrumental activities of daily living (Acute) Deficit in activities of daily living (ADL) (Acute) Hyperuricemia (Acute) Gout (Chronic) 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) Respiratory failure with hypoxia and hypercapnia (Chronic) Chronic O2 CHF (congestive heart failure) (Acute 02/23/14) Preserved EF (10/2020 & 08/2021 ECHO) Obstructive sleep apnea (Chronic 02/23/14) 2022: Trilogy; Sleep Med Referral, 04/17/2019-->Very severe YARELY; CPAP ([employer]) with continuous O2, new Panda C-Pap 01/2021 Type II diabetes mellitus (Chronic) Hypertension (Chronic) Hyperlipidemia (Chronic) Atrial fibrillation (Chronic) Apixaban Anemia (Chronic) Pulmonary hypertension (Chronic) Dependence on supplemental oxygen (Chronic) YARELY + Pulm HTN Chronic low back pain (Chronic 07/24/15) CT-lumbar spine 2019-- Severe multilevel degenerative changes in the lumbar spine resulting in neural foraminal and central spinal canal stenosis. Chronic anticoagulation (Chronic) AF--Apixaban Risk for falls (Chronic) Sedentary lifestyle (Chronic) B12 deficiency (Chronic) Start B12 injections; elevated MCV-->converted to oral 03/2023 Obesity hypoventilation syndrome (Chronic) Obesity + Severe YARELY + Chronic Hypercapnia Dependent on walker for ambulation (Chronic) Hypomagnesemia (Acute ~07/2021) Mild mitral valve regurgitation (Acute ~08/2021) ECHO Trace tricuspid valve regurgitation (Acute ~08/2021) ECHO Medical History Bradycardia Closed stable burst fracture of ninth thoracic vertebra [facility] Pain & Spine-03/01/23 Diverticulosis Knee pain, left Pressure sore on buttocks Trigger finger, right middle finger Injection: 05/04/2022 Right carpal tunnel syndrome Lipoma Restrictive lung disease (~03/2014) PFTs validated 04/04/2014-->see scanned docs Gout attack (~10/2020) R podagra, first attack 10/2020-->treated with colchine, effective Sciatica of right side without back pain RX Medrol Dietary counseling reviewed sodium levels in her food, how to count mg, goal of 1500 mg daily due to CHF Renal calculi Non obstructive per CT Peptic ulcer of duodenum [facility] Path reports upper endoscopy; RX Carafate Female hirsutism Carpal tunnel syndrome, bilateral (12/17/16) Lipoma of arm Heme + stool [facility] Upper GI Endoscopy Peptic Duodenitis (pathology report); repeat hemoccults NEG 11/2019 Folate deficiency Low 12/2018; resolved 05/2019 labs; discontinued 02/05/2020 Iron deficiency EGD 05/23/19 at [facility]; discont supp iron & vit c 02/05/2020; Hgb stable and iron constipating; she will obtain dietarily YARELY (obstructive sleep apnea) Spinal stenosis, lumbar HTN (hypertension) Insulin dependent diabetes mellitus Edentulous H/O rotator cuff tear H/O fracture of nose h/o elbow fx Adult body mass index 50.0-59.9 Surgical History History of total knee arthroplasty bilateral History of total abdominal hysterectomy and bilateral salpingo-oophorectomy (~02/1999) History of shoulder surgery Right shoulder repair - 2004 History of carpal tunnel repair Left- 1998 Right- 2017 Colonoscopy - MAC (08/14/16) Biopsy, Temporal Artery (01/18/15) DR.C YOUNG History of total bilateral knee replacement Family History Mother Heart disease Father Heart disease Lung cancer Brother Heart disease AAA (abdominal aortic aneurysm, ruptured) Brother Obesity Son No problems noted. Daughter Stillborn, abnormal Daughter No problems noted. 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 Pets and animals: Yes Pets and animals: cat(s) Sexually active: No Do you think of yourself as: straight/heterosexual Current gender identity: female What is your relationship status?: How often do you talk on the phone with friends or family?: once per week How often do you get together with friends or relatives?: once per week Panel score (0-1 are the most socially isolated patients): 0 What type of physical activity do you participate in: none and sedentary lifestyle Special jakob needs: No Agree to transfusion: Yes Seatbelt use: always In current or past relationships, have you been: made to feel afraid Do you feel safe at home: Yes Do you feel safe in your relationship?: Yes Exam Narrative Exam Narrative: General: older adult female, sitting in ICU room in bedside chair, feet dependent HEENT: hearing grossly WNL; normocephalic, atraumatic Resp: even and unlabored w/NC at 4L, O2 sats range from 83-87% throughout visit, speaks 1-3 full sentences w/o SOB, more requires recover; cough, dry, non- productive; no audible wheeze Psych: MS WNL, speech/movement WNL, pleasant, cooperative; thought process loose association, impoverished; insight/judgment limited Results Last Vital Signs Temp 98.2 F 05/23/24 13:53 Pulse 84 05/23/24 14:00 Resp 14 05/23/24 14:00 BP 129/94 H 05/23/24 08:09 Pulse Ox 84 L 05/23/24 14:00 Labs 05/23/24 05:35 05/23/24 05:35 Labs: Laboratory Results - last 24 hr 05/22/24 05/22/24 05/22/24 16:13 16:55 17:05 WBC RBC Hgb Hct MCV MCH MCHC RDW Plt Count MPV VBG pH 7.34 VBG pCO2 72 H* VBG pO2 34 VBG HCO3 39 H VBG Total CO2 37 H VBG O2 Saturation 61 VBG Base Excess 13 H Sodium Potassium Chloride Carbon Dioxide Anion Gap BUN Creatinine Est GFR (CKD-EPI 2020) Glucose Calcium Total Bilirubin AST ALT Alkaline Phosphatase Troponin I 137 H* 146 H* Total Protein Albumin Urine Color Urine Clarity Urine pH Ur Specific [place] Urine Protein Urine Ketones Urine Blood Urine Nitrite Urine Bilirubin Urine Urobilinogen Ur Leukocyte Esterase Urine RBC Urine WBC Ur Epithelial Cells Urine Crystals Urine Bacteria Urine Mucus Ur Culture Indicated? Urine Glucose COVID-19 Source Nasopharynx SARS-CoV-2 (PCR) Negative Influenza Type A (PCR) Negative Influenza Type B (PCR) Negative RSV (PCR) Negative 05/22/24 05/23/24 17:15 05:35 WBC 5.50 RBC 3.00 L Hgb 9.5 L Hct 30.7 L MCV 102 H MCH 31.7 MCHC 30.9 L RDW 20.2 H Plt Count 161 MPV 10.8 VBG pH VBG pCO2 VBG pO2 VBG HCO3 VBG Total CO2 VBG O2 Saturation VBG Base Excess Sodium 144 Potassium 4.6 Chloride 103 Carbon Dioxide 37.8 H Anion Gap 3.2 BUN 70 H Creatinine 2.9 H Est GFR (CKD-EPI 2020) 16.17 Glucose 96 Calcium 9.6 Total Bilirubin 0.7 AST 15 ALT 12 L Alkaline Phosphatase 68 Troponin I Total Protein 6.7 Albumin 2.9 L Urine Color Yellow Urine Clarity Cloudy Urine pH 5.5 Ur Specific [place] 1.015 Urine Protein 100 H Urine Ketones Negative Urine Blood Large H Urine Nitrite Negative Urine Bilirubin Negative Urine Urobilinogen 0.2 Ur Leukocyte Esterase Large H Urine RBC >50 H Urine WBC >50 H Ur Epithelial Cells Not Applicable Urine Crystals Not Applicable Urine Bacteria Not Applicable Urine Mucus Not Applicable Ur Culture Indicated? Yes Urine Glucose 250 H COVID-19 Source SARS-CoV-2 (PCR) Influenza Type A (PCR) Influenza Type B (PCR) RSV (PCR) Time Spent Time Spent with Patient Time Spent(min): 55
[2024-05-23] MEDS: Normal Saline Flush 10 ML SYR ×2 (17:25→20:30)
[2024-05-23] MEDS: Lidocaine 5% Patch 1 PATCH TP (20:24)
[2024-05-23] MEDS: Atorvastatin 40 MG TAB 80 MG PO (20:29)
[2024-05-23] MEDS: Insulin Glargine 300 UNITS/3 ML PEN 14 UNITS SC (20:52)
[2024-05-24] VITALS (10 sets, daily range): BP systolic 113–135; BP diastolic 57–84; PULSE 68–115; RESP 16–27; TEMP 36.2–36.6; O2SAT 80–92
--- NOTE | 2024-05-24 08:45 | PDOC.CMPRO ---
Date of service: 05/24/24 Time of Service: 08:49 Care Management Progress Note Discharge Potential Discharge Needs: PCP F/U Appt Anticipated Barriers to Discharge: None Identified Patient/Family Education Needs: Review discharge instructions, discuss Ask Me Three Transportation: Private vehicle Plan: Anticipate Mohan will be discharged home with a resumption of services she receives through [facility]. She will follow up with her community providers and plan of care and transport with her son. CM will follow and continue to assess for discharge needs. Social Determinants of Health Screening Will the Patient Participate in the Screening?: Declined to provide
--- NOTE | 2024-05-24 08:53 | PDOC.HHF2F ---
Home Health Referral Home Health Orders Clinical synopsis of why skilled professionals are needed: YARELY/OHS, chronic hypixic and hypercapnic respiratory failure, CAD, CHF Registered Nurse: Check all that apply Instruct on new or changed medication(s)/assess compliance: Ordered Assess for exacerbation of medical condition, instruct patient/caregivers on signs and symptoms to report for early detection: Ordered Other: evaluate new respiratory device (trilogy) and its effectiveness Physical Therapist: Check all that apply Increase strength & endurance for safe mobility at home: Ordered To design/establish home maintenance program: Ordered Fall reduction therapy program for patient with history of frequent falls: Ordered Home safety evaluation and teaching/gait training including stair management (if applicable): Ordered Occupational Therapist: Evaluate and treat for patient unable to perform ADL/IADL/self-care: Ordered Home Bound Status Requires the aid of supportive device (check all that apply): Other Encounter Date and Reason: I certify that a FTF encounter for this patient was performed on May 24, 2024 and that such encounter was related to the primary reason the patient requires home health services. The encounter was conducted in the following manner: By me as the certifying physician, LEAF FAT SCRAPER, PA or By an inpatient physician, LEAF FAT SCRAPER or PA during an inpatient stay who communicated findings to me, Certification And Authentication I certify that I composed the above information based on my clinical judgment relating to this patient's medical condition and, if applicable, clinical findings communicated to me by the NPP or inpatient physician who performed the FTF encounter. Name of Provider that will be monitoring home health services: Laverne Sung
--- NOTE | 2024-05-24 08:54 | W.PM.DS.N ---
Date of service: 05/24/24 Time of Service: 16:31 DS: Diagnosis Discharge Diagnosis (1) Acute on chronic respiratory failure with hypoxia and hypercapnia: Status: Acute (2) CHF (congestive heart failure): Status: Acute (3) Edema: Status: Acute (4) Diabetic peripheral neuropathy: Status: Acute (5) Impaired instrumental activities of daily living: Status: Acute (6) Deficit in activities of daily living (ADL): Status: Acute (7) CKD stage 4 due to type 2 diabetes mellitus: Status: Chronic (8) Palliative care patient: Status: Acute (9) ACP (advance care planning): Status: Acute Discharge Plan Disposition Patient Disposition: Home W/Home Health Services Condition: Good Discharge Details Reason For Visit: Acute on Chronic Hypercapnic and Hypoxic Respirato Admit Date/Time: 05/22/24 17:06 Admit Provider: Wilber Rodríguez Attending Provider: Wilber Rodríguez Primary Care Provider: Laverne Sung Hospital Course Hospital Course: Patient initially presented with signs and symptoms consistent with acute on chronic hypoxic and hypercapnic respiratory failure. She admitted that she had not been feeling well over the last week and had not been using her trilogy which she has a history of being intermittently compliant with. She was briefly on BiPAP and had her trilogy brought in and had rapid significant improvement of her respiratory status, her CO2 and her pH. Additionally, she was found to have UTI for which she was treated with ceftriaxone will be discharged with there is general 5 days of cefpodoxime. Home Meds and New Rx's Prescriptions: New cefpodoxime 200 mg Tablet 200 mg PO DAILY 5 Days Qty: 5 0RF Continued calcium carbonate-vitamin D3 600 mg-20 mcg (800 unit) tablet 1 tab PO DAILY acetaminophen [Tylenol Extra Strength] 500 mg tablet 500 mg PO Q6H PRN docusate sodium [Colace] 100 mg capsule 100 mg PO BID PRN clotrimazole 1 % cream 1 applic topical BID Qty: 45 0RF Rx Instructions: apply liberal amount until rash to breasts and skin folds is resolved magnesium oxide 400 mg (241.3 mg magnesium) tablet 400 mg PO DAILY Qty: 90 3RF Rx Instructions: Low magnesium sennosides [senna] 8.6 mg tablet 8.6 mg PO QHS PRN (Reason: constipation) Qty: 30 0RF Rx Instructions: Medication trial for constipation (see if better tolerated than Miralax) allopurinol 100 mg tablet See Rx Instructions .ROUTE .COMPLEX Qty: 90 3RF Dose Instruction: TAKE ONE TABLET BY MOUTH EVERY DAY FOR GOUT PREVENTION Rx Instructions: TAKE ONE TABLET BY MOUTH EVERY DAY FOR GOUT PREVENTION amlodipine 5 mg tablet See Rx Instructions .ROUTE .COMPLEX Qty: 90 3RF Dose Instruction: TAKE ONE TABLET BY MOUTH EVERY DAY Rx Instructions: TAKE ONE TABLET BY MOUTH EVERY DAY Eliquis 5 mg tablet See Rx Instructions .ROUTE .COMPLEX Qty: 180 3RF Dose Instruction: TAKE ONE TABLET BY MOUTH TWICE A DAY Rx Instructions: TAKE ONE TABLET BY MOUTH TWICE A DAY insulin glargine 100 unit/mL (3 mL) insulin pen 14 unit subcut HS Qty: 30 1RF Preservision capsule 1 cap PO DAILY Patient Comments: One in the morning and one at night. dapagliflozin propanediol [Farxiga] 5 mg tablet 5 mg PO QAM Qty: 90 3RF nystatin 100,000 unit/gram powder 1 applic topical TID Qty: 60 0RF Rx Instructions: apply liberally to breast folds until rash resolved vitamin B complex-folic acid [B Complex 1 (with folic acid)] 0.4 mg tablet See Rx Instructions .ROUTE .COMPLEX Qty: 90 3RF Dose Instruction: TAKE ONE TABLET BY MOUTH EVERY DAY Rx Instructions: TAKE ONE TABLET BY MOUTH EVERY DAY insulin aspart U-100 [Novolog FlexPen U-100 Insulin] 100 unit/mL (3 mL) insulin pen See Rx Instructions subcut AC MDD 30 units Qty: 90 3RF Rx Instructions: For diabetes as directed with meals sliding scale: if glucose 100 or less:0units insulin 101-150: 2 units 151-200: 4 units 201-250: 6 units 251-300: 8 units over 300: 10 units atorvastatin 80 mg tablet 80 mg PO QHS Qty: 90 3RF Rx Instructions: Cholesterol torsemide 20 mg tablet 20 mg PO DAILY AM Qty: 90 3RF polyethylene glycol 3350 [ClearLax] 17 gram/dose powder 17 g PO DAILY PRN bismuth subsalicylate [Anti-Diarrheal] 262 mg/15 mL suspension 524 mg PO QID Held pantoprazole [Protonix] 40 mg tablet,delayed release (DR/EC) 40 mg PO DAILY Qty: 90 3RF Hold Instructions: Resume on 05/29/24. hold until cefpodoxime is done Rx Instructions: h/o GI bleed, stomach protection No Action (DME) 3XL incontinence briefs See Rx Instructions .Route .MEDSUPPLY Qty: 30 2RF Rx Instructions: Uses one nightly at bedtime for urge incontinence (DME) Oxygen Tank See Rx Instructions .ROUTE .MEDSUPPLY Qty: 1 0RF Rx Instructions: 2-5L via NC continuous (DME) Wheelchair See Rx Instructions .Route .MEDSUPPLY Qty: 1 0RF Rx Instructions: As directed (DME) FreeStyle Bradley 2 Sensor Kit See Rx Instructions .ROUTE .MEDSUPPLY Qty: 2 11RF Rx Instructions: As directed; on insulin AC & HS for goal A1C 8% (DME) pen needle, diabetic [BD Ultra-Fine Mini Pen Needle] 31 gauge x 3/16 needle See Rx Instructions .ROUTE .COMPLEX Qty: 100 6RF Dose Instruction: USE FOUR TIMES A DAY Rx Instructions: USE FOUR TIMES A DAY Discharge Instructions Referrals: Laverne Sung BANK COMPLIANCE OFFICER [Primary Care Provider] - Activity:: Activity as Tolerated Equipment/Supplies:: No Equipment Needed Diet:: As Tolerated Discharge Orders Discharge Orders: Discharge Order (Routine); Ordered 05/24/24 Ordered By: Wilber Rodríguez Discharge Data Discharge Date/Time-TO BE ENTERED AT DEPARTURE: 05/24/24 13:45 Discharge Comment: order for home visit from PCP 06/01 afternoon DS: Summary Time Spent with Patient providing and/or coordinating discharge services: Greater than 30 minutes Status at Discharge Functional status at discharge: independent ambulation Overall status at discharge: patient is back to baseline Mental Status: mental status grossly normal Speech and Movement: speech and movement normal Mood: congruent mood Affect: normal affect Quality:SDOH Health Related Social Needs: No Data to Display Exam Narrative Exam Narrative: Morbidly obese female laying in bed in no acute distress, ANO x 4, 4 L nasal cannula in place, heart regular rhythm, lungs diminished likely due to body habitus, abdomen obese, soft, nontender, nondistended Psych Mental Status: mental status grossly normal Speech and Movement: speech and movement normal Mood: congruent mood Affect: normal affect DS: Data Vitals/I&O Vitals and I&O: Vital Signs Temperature 97.9 F 05/24/24 08:01 Temperature Source Temporal Artery Scan 05/24/24 04:25 Pulse 80 05/24/24 08:01 Pulse 94 H 05/24/24 08:01 Respiratory Rate 23 05/24/24 08:01 Respiratory Effort Incrsd Work of Breathing 05/22/24 18:38 Respiratory Depth Normal 05/22/24 18:38 Blood Pressure 113/84 05/24/24 08:01 Blood Pressure Mean 93 05/24/24 08:01 Blood Pressure Position Supine 05/22/24 18:38 Pulse Oximetry 88 L 05/24/24 08:40 Oxygen Delivery Method Nasal Cannula 05/24/24 08:40 Oxygen Flow Rate 4 05/24/24 08:40 Fraction of Inspired Oxygen (FIO2) 40 05/23/24 08:43 Pain Level 0 05/23/24 15:15 Comment sitting in chair 05/23/24 07:26 Intake & Output 05/23/24 05/24/24 05/24/24 17:59 05:59 17:59 Intake Total 940 / 940 30 / 970 240 / 240 Output Total 400 / 400 Balance 940 / 940 -370 / 570 240 / 240 Weight 240 lb 1.334 oz Intake: Oral 940 / 940 30 / 970 240 / 240 Output: Urine 400 / 400 Other: Urine Color Dark Carlee Urine Appearance Clear Comment Patient had external catheter (purewick) in place at this time. Pt saturated brief and external catheter. External catheter and brief changed. Kiki care performed and barrier cream applied. Stool Size Small Stool Characteristics Formed Brown Data Completed and Pending Labs on day of discharge: Preliminary micro results at discharge 05/22/24 17:15 Urine Culture - Preliminary Urine - Reflex from Ua Gram positive kamila, mixed Gram negative nishant PFSH All Active Problems Acute hypercapnic respiratory failure (Acute) Insulin dependent type 2 diabetes mellitus (Acute) Acute on chronic respiratory failure with hypoxia and hypercapnia (Acute) History of frostbite (Acute) Nerve pain (Acute) Edema (Acute) Macular degeneration of both eyes (Acute) Diabetic peripheral neuropathy (Acute) ACP (advance care planning) (Acute) Right hand paresthesia (Acute) Palliative care patient (Acute) Ureteral stone (Acute ~11/2022) Nephrostomy tube Right thyroid nodule (Acute ~11/2022) Impaired instrumental activities of daily living (Acute) Deficit in activities of daily living (ADL) (Acute) Hyperuricemia (Acute) Gout (Chronic) 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) Respiratory failure with hypoxia and hypercapnia (Chronic) Chronic O2 CHF (congestive heart failure) (Acute 02/23/14) Preserved EF (10/2020 & 08/2021 ECHO) Obstructive sleep apnea (Chronic 02/23/14) 2022: Trilogy; Sleep Med Referral, 04/17/2019-->Very severe YARELY; CPAP ([facility]) with continuous O2, new Panda C-Pap 01/2021 Type II diabetes mellitus (Chronic) Hypertension (Chronic) Hyperlipidemia (Chronic) Atrial fibrillation (Chronic) Apixaban Anemia (Chronic) Pulmonary hypertension (Chronic) Dependence on supplemental oxygen (Chronic) YARELY + Pulm HTN Chronic low back pain (Chronic 07/24/15) CT-lumbar spine 2019-- Severe multilevel degenerative changes in the lumbar spine resulting in neural foraminal and central spinal canal stenosis. Chronic anticoagulation (Chronic) AF--Apixaban Risk for falls (Chronic) Sedentary lifestyle (Chronic) B12 deficiency (Chronic) Start B12 injections; elevated MCV-->converted to oral 03/2023 Obesity hypoventilation syndrome (Chronic) Obesity + Severe YARELY + Chronic Hypercapnia Dependent on walker for ambulation (Chronic) Hypomagnesemia (Acute ~07/2021) Mild mitral valve regurgitation (Acute ~08/2021) ECHO Trace tricuspid valve regurgitation (Acute ~08/2021) ECHO Medical History Bradycardia Closed stable burst fracture of ninth thoracic vertebra [facility] [place] Pain & Spine-03/01/23 Diverticulosis Knee pain, left Pressure sore on buttocks Trigger finger, right middle finger Injection: 05/04/2022 Right carpal tunnel syndrome Lipoma Restrictive lung disease (~03/2014) PFTs validated 04/04/2014-->see scanned docs Gout attack (~10/2020) R podagra, first attack 10/2020-->treated with colchine, effective Sciatica of right side without back pain RX Medrol Dietary counseling reviewed sodium levels in her food, how to count mg, goal of 1500 mg daily due to CHF Renal calculi Non obstructive per CT Peptic ulcer of duodenum [facility] [place] Path reports upper endoscopy; RX Carafate Female hirsutism Carpal tunnel syndrome, bilateral (12/17/16) Lipoma of arm Heme + stool [facility] [place] Upper GI Endoscopy Peptic Duodenitis (pathology report); repeat hemoccults NEG 11/2019 Folate deficiency Low 12/2018; resolved 05/2019 labs; discontinued 02/05/2020 Iron deficiency EGD 05/23/19 at [facility]; discont supp iron & vit c 02/05/2020; Hgb stable and iron constipating; she will obtain dietarily YARELY (obstructive sleep apnea) Spinal stenosis, lumbar HTN (hypertension) Insulin dependent diabetes mellitus Edentulous H/O rotator cuff tear H/O fracture of nose h/o elbow fx Adult body mass index 50.0-59.9 Surgical History History of total knee arthroplasty bilateral History of total abdominal hysterectomy and bilateral salpingo-oophorectomy (~02/1999) History of shoulder surgery Right shoulder repair - 2004 History of carpal tunnel repair Left- 1998 Right- 2017 Colonoscopy - MAC (08/14/16) Biopsy, Temporal Artery (01/18/15) DR.C YOUNG History of total bilateral knee replacement Family History Mother Heart disease Father Heart disease Lung cancer Brother Heart disease AAA (abdominal aortic aneurysm, ruptured) Brother Obesity Son No problems noted. Daughter Stillborn, abnormal Daughter No problems noted. 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 Pets and animals: Yes Pets and animals: cat(s) Sexually active: No Do you think of yourself as: straight/heterosexual Current gender identity: female What is your relationship status?: How often do you talk on the phone with friends or family?: once per week How often do you get together with friends or relatives?: once per week Panel score (0-1 are the most socially isolated patients): 0 What type of physical activity do you participate in: none and sedentary lifestyle Special jakob needs: No Agree to transfusion: Yes Seatbelt use: always In current or past relationships, have you been: made to feel afraid Do you feel safe at home: Yes Do you feel safe in your relationship?: Yes Time Spent with Patient Time Spent with Patient: <45 minutes Time was spent: preparing to see the patient(eg.review tests), obtaining and/or reviewing separately otained hiistory, ordering medications,tests, procedures, referring, communicating with other health child care associate, indepentently interpreting results, counseling the patient and care coordination
--- NOTE | 2024-05-24 09:03 | PDOC.CMDIS ---
Date of service: 05/24/24 Time of Service: 09:03 LACE Index Scoring Tool Questions: Length of Stay (in days): 2 Was the patient admitted via the E.D.?: Yes Comorbidities: Diabetes w/o Complication, Congestive Heart Failure, Chronic Pulmonary Disease and Liver or Renal Disease E.D. Visits: 1 Answers: Total Score: 11 Risk of Readmission: High Risk Care Management Discharge Plan Reason for Hospitalization: respiratory failure Discharge Plan: Mohan will be discharged home with new home health services for RN, PT and OT. She will follow up with her community providers and plan of care and transport with her son. Patient/Family Education Needs: review of discharge instructions, limitations, follow up plan and discuss Ask me Three. Services Needed at Discharge: Home Health Care Services SDOH Health Related Social Needs: No Data to Display
[2024-05-24] MEDS: Allopurinol 100 MG TAB PO (09:12)
[2024-05-24] MEDS: Pantoprazole 40 MG TABCR PO (09:12)
[2024-05-24] MEDS: Bumetanide 1 MG/4 ML VIAL IVP (09:13)
[2024-05-24] MEDS: Apixaban 5 MG TAB PO (09:13)
[2024-05-24] MEDS: Cefpodoxime 200 MG TAB PO (09:17)
[2024-05-24] MEDS: Lidocaine Patch Removal 1 EACH TP (09:20)
[2024-05-24] MEDS: Normal Saline Flush 10 ML SYR IVP (09:25)
== END 2024-05-24 13:45 | disposition home health service (06) | DRG 291 ==
LOC: ER 17:52 → ICU 17:58
PROVIDERS: Physician Assistant; Admitting Provider Family Medicine; Emergency Provider Physician Assistant; PCP Nurse Practitioner Adult Health; Responsible Provider Family Medicine; Visit Provider Family Medicine
DX: I13.0 Hypertensive heart and chronic kidney disease with heart failure and stage 1 through stage 4 chronic kidney disease, or unspecified chronic kidney disease (principal); I50.33 Acute on chronic diastolic (congestive) heart failure; J96.21 Acute and chronic respiratory failure with hypoxia; J96.22 Acute and chronic respiratory failure with hypercapnia; N18.4 Chronic kidney disease, stage 4 (severe); E66.2 Morbid (severe) obesity with alveolar hypoventilation; N39.0 Urinary tract infection, site not specified; E11.22 Type 2 diabetes mellitus with diabetic chronic kidney disease; Z79.4 Long term (current) use of insulin; E78.5 Hyperlipidemia, unspecified; E11.42 Type 2 diabetes mellitus with diabetic polyneuropathy; Z99.81 Dependence on supplemental oxygen; I48.91 Unspecified atrial fibrillation; I27.20 Pulmonary hypertension, unspecified; R74.8 Abnormal levels of other serum enzymes; Z68.39 Body mass index [BMI] 39.0-39.9, adult; M48.061 Spinal stenosis, lumbar region without neurogenic claudication; I34.0 Nonrheumatic mitral (valve) insufficiency; Z96.653 Presence of artificial knee joint, bilateral; I25.10 Atherosclerotic heart disease of native coronary artery without angina pectoris
CPT/HCPCS: 00123; 36415; 80053; 82805; 85027; 87637; 93005; 93306; 94640; 96374; 99291; 71045; 81003; 81015; 83735; 83880; 84484; 85025; 87086; 93010; 94660; 94760; 99223; 99233; 99239; J1815; J1939; J3490; J7614

== ENCOUNTER 2024-05-30 13:20 | Inpatient (IN) | payer MEDICARE, MEDICAID, SELFPAY ==
[2024-05-30] VITALS (74 sets, daily range): BP systolic 83–164; BP diastolic 61–103; PULSE 64–91; RESP 5–33; TEMP 36.4–36.9; O2SAT 81–96
--- NOTE | 2024-05-30 13:00 | RT.EKG_ITS ---
APPROVED REPORT Exam: Resting ECG Reason for Exam: Resp Distress Patient Location: E HR:82 bpm ECG Measurements Heart Rate 82 AXIS NC [id number] P [id number] QRSd 74 QRS 269 QT 334 T 65 QTc 390 Conclusion Atrial fibrillation...V-rate 70- 97, irreg A-activity Left anterior fascicular block...axis(240,-40), init forces inf Low voltage, extremity and precordial leads...extremity<0.5mV, precordial<1.0mV No STEMI
--- NOTE | 2024-05-30 13:14 | ED.GENADUL_ITS ---
Discharge Plan Discharge Details Chief Complaint: RespSymp Clinical Impression: Acute on chronic respiratory failure with hypoxia and hypercapnia, Acute heart failure with preserved ejection fraction (HFpEF), Acute hyperkalemia, Non-ST elevation (NSTEMI) myocardial infarction Primary Care Provider: Laverne Sung ED Provider: Kiran Campo [place] Meds and New Rx's Prescriptions: No Action (DME) 3XL incontinence briefs See Rx Instructions .Route .MEDSUPPLY Qty: 30 2RF Rx Instructions: Uses one nightly at bedtime for urge incontinence calcium carbonate-vitamin D3 600 mg-20 mcg (800 unit) tablet 1 tab PO DAILY acetaminophen [Tylenol Extra Strength] 500 mg tablet 500 mg PO Q6H PRN docusate sodium [Colace] 100 mg capsule 100 mg PO BID PRN clotrimazole 1 % cream 1 applic topical BID Qty: 45 0RF Rx Instructions: apply liberal amount until rash to breasts and skin folds is resolved magnesium oxide 400 mg (241.3 mg magnesium) tablet 400 mg PO DAILY Qty: 90 3RF Rx Instructions: Low magnesium sennosides [senna] 8.6 mg tablet 8.6 mg PO QHS PRN (Reason: constipation) Qty: 30 0RF Rx Instructions: Medication trial for constipation (see if better tolerated than Miralax) (DME) Oxygen Tank See Rx Instructions .ROUTE .MEDSUPPLY Qty: 1 0RF Rx Instructions: 2-5L via NC continuous (DME) Wheelchair See Rx Instructions .Route .MEDSUPPLY Qty: 1 0RF Rx Instructions: As directed allopurinol 100 mg tablet See Rx Instructions .ROUTE .COMPLEX Qty: 90 3RF Dose Instruction: TAKE ONE TABLET BY MOUTH EVERY DAY FOR GOUT PREVENTION Rx Instructions: TAKE ONE TABLET BY MOUTH EVERY DAY FOR GOUT PREVENTION amlodipine 5 mg tablet See Rx Instructions .ROUTE .COMPLEX Qty: 90 3RF Dose Instruction: TAKE ONE TABLET BY MOUTH EVERY DAY Rx Instructions: TAKE ONE TABLET BY MOUTH EVERY DAY Eliquis 5 mg tablet See Rx Instructions .ROUTE .COMPLEX Qty: 180 3RF Dose Instruction: TAKE ONE TABLET BY MOUTH TWICE A DAY Rx Instructions: TAKE ONE TABLET BY MOUTH TWICE A DAY insulin glargine 100 unit/mL (3 mL) insulin pen 14 unit subcut HS Qty: 30 1RF Preservision capsule 1 cap PO DAILY Patient Comments: One in the morning and one at night. (DME) FreeStyle Bradley 2 Sensor Kit See Rx Instructions .ROUTE .MEDSUPPLY Qty: 2 11RF Rx Instructions: As directed; on insulin AC & HS for goal A1C 8% dapagliflozin propanediol [Farxiga] 5 mg tablet 5 mg PO QAM Qty: 90 3RF nystatin 100,000 unit/gram powder 1 applic topical TID Qty: 60 0RF Rx Instructions: apply liberally to breast folds until rash resolved (DME) pen needle, diabetic [BD Ultra-Fine Mini Pen Needle] 31 gauge x 3/16 needle See Rx Instructions .ROUTE .COMPLEX Qty: 100 6RF Dose Instruction: USE FOUR TIMES A DAY Rx Instructions: USE FOUR TIMES A DAY vitamin B complex-folic acid [B Complex 1 (with folic acid)] 0.4 mg tablet See Rx Instructions .ROUTE .COMPLEX Qty: 90 3RF Dose Instruction: TAKE ONE TABLET BY MOUTH EVERY DAY Rx Instructions: TAKE ONE TABLET BY MOUTH EVERY DAY pantoprazole [Protonix] 40 mg tablet,delayed release (DR/EC) 40 mg PO DAILY Qty: 90 3RF Rx Instructions: h/o GI bleed, stomach protection insulin aspart U-100 [Novolog FlexPen U-100 Insulin] 100 unit/mL (3 mL) insulin pen See Rx Instructions subcut AC MDD 30 units Qty: 90 3RF Rx Instructions: For diabetes as directed with meals sliding scale: if glucose 100 or less:0units insulin 101-150: 2 units 151-200: 4 units 201-250: 6 units 251-300: 8 units over 300: 10 units atorvastatin 80 mg tablet 80 mg PO QHS Qty: 90 3RF Rx Instructions: Cholesterol torsemide 20 mg tablet 20 mg PO DAILY AM Qty: 90 3RF polyethylene glycol 3350 [ClearLax] 17 gram/dose powder 17 g PO DAILY PRN bismuth subsalicylate [Anti-Diarrheal] 262 mg/15 mL suspension 524 mg PO QID HPI General Date/Time Provider Initiated Documentation: 05/30/24 13:35 . HPI Narrative: MDM This is a hypoxic hypercarbic 78-year-old female with bilateral B-lines concerning acute exacerbation of heart failure with reduced ejection fraction versus fluid overload from pulmonary hypertension for which patient will require hospitalization. She has a nonischemic ECG however I am concerned for type II NSTEMI as her troponin is greater than 1000 ng/L, approximately 10 times her prior troponin level. No pain or proportion to suggest necrotizing soft tissue infection. She does have some lower extremity edema and is up from her last weight approximately 10 kg. She reports a contraindication for furosemide so I treated her with 1 g of bumetanide for which she put out 100 cc on the PureWick. No fevers nor cough to suggest pneumonia. She was found to be mildly hyperkalemic which should improve with the diuretic and rescue CPAP. I repeated 2 ECGs on the patient's. She is in a rate controlled atrial fibrillation with poor R wave progression no ST segment abnormalities. T wave flattening in aVL. Given bilateral lower extremity edema and B-lines my suspicion was low for PE so I did not send a D-dimer as patient takes apixaban. No acute injury pattern. Appears similar to prior. She would want to be full code. She has had no black or bloody stools to suggest GI bleed. She did report subsequent dysuria after the PureWick was placed. I ordered a urinalysis. Given that she is making urine I do not feel that she requires nephrology consultation or tertiary care transfer. She may certainly benefit from a left heart catheterization I do not feel that she requires this emergently. I reached out to Dr. Vargas. 4:20 PM I spoke with Dr. Vargas who graciously agreed to accept the patient for hospitalization. 4:25 PM I [place] Leonardo [place] [facility] [place] agreed with diuresis, ASA, and local hospitalization. He did not feel that patient require emergent LHC. He advised heparin gtt ACS protocol out of abundance of precaution. Then if she develops chest pressure we would not have to washout the apixaban. I shared this plan with the hospitalist team. Second troponin downtrending. HPI This is a 78-year-old female history of mitral valve regurgitation pulmonary hypertension heart failure with preserved ejection fraction CKD right emergency department via EMS in setting of worsening shortness of breath. Patient is on 4 L nasal cannula at baseline. She was up to 15 L the prehospital providers. She denies any chest pain fevers cough. No history of asthma nor COPD. No history of PE nor DVT. Denies routine tobacco, ethanol, and illicits. She has been off antibiotics since last week when she was diagnosed with UTI and pneumonia. No recent falls. Exam General: Elderly-appearing in no acute distress speaking in 4-5 word sentences. Head: Normocephalic, atraumatic. Eye: Extraocular eye movements intact. No conjunctival injection. No scleral icterus. Ear, nose, mouth, throat: Grossly normal inspection. Normal voice, handling secretions normally. Neck: Trachea midline. Cardiovascular: Well-perfused distal extremities. Irregular regular rate. Respiratory: Nonlabored respiration on Ventimask at 15 L. Bibasilar crackles. Gastrointestinal: Nondistended abdomen. Soft nontender. Musculoskeletal: Bilateral 2+ lower extremity pitting edema. Moving all 4 extremities spontaneously. No palpable cords bilaterally. Skin: Normal for age and race, grossly normal temperature and turgor. No acute rash. Neurologic: Alert and appropriate, no apparent acute deficits. Psychiatric: Mood and manner are appropriate. Grooming and personal hygiene are appropriate. Related Data Home Medications ?Medication ?Instructions ?Recorded ?Confirmed acetaminophen 500 mg tablet 500 mg PO Q6H PRN 12/04/19 05/30/24 (Tylenol Extra Strength) Oxygen #1 ea 12/19/21 05/30/24 docusate sodium 100 mg capsule 100 mg PO BID PRN 02/10/22 05/30/24 (Colace) 3XL incontinence briefs #30 ea 05/30/22 05/30/24 Wheelchair #1 ea 06/08/22 05/30/24 polyethylene glycol 3350 17 17 g PO DAILY PRN 02/24/23 05/30/24 gram/dose oral powder (ClearLax) bismuth subsalicylate 262 mg/15 mL 524 mg PO QID 03/05/23 05/30/24 oral suspension (Anti-Diarrheal) allopurinol 100 mg tablet See Rx Instructions .Route 08/11/23 05/30/24 .COMPLEX #90 tabs amlodipine 5 mg tablet See Rx Instructions .Route 09/06/23 05/30/24 .COMPLEX #90 tabs clotrimazole 1 % topical cream 1 applic topical BID #45 grams 09/06/23 05/30/24 magnesium oxide 400 mg (241.3 mg 400 mg PO DAILY #90 tabs 09/06/23 05/30/24 magnesium) tablet apixaban 5 mg tablet (Eliquis) See Rx Instructions .Route 10/18/23 05/30/24 .COMPLEX #180 tabs insulin glargine 100 unit/mL (3 14 unit (0.14 mL) subcut HS #30 mL 01/17/24 05/30/24 mL) subcutaneous pen calcium 600 mg (as 1 tab PO DAILY 01/24/24 05/30/24 carbonate)-vitamin D3 20 mcg (800 unit) tablet Preservision 1 cap PO DAILY 02/17/24 05/30/24 flash glucose sensor (FreeStyle #2 ea 02/23/24 05/30/24 Bradley 2 Sensor kit) dapagliflozin propanediol 5 mg 5 mg PO QAM #90 tabs 03/06/24 05/30/24 tablet (Farxiga) nystatin 100,000 unit/gram topical 1 applic topical TID #60 grams 03/12/24 05/30/24 powder pen needle, diabetic 31 gauge x #100 ea 03/24/24 05/30/24 3/16 (BD Ultra-Fine Mini Pen Needle) vitamin B complex-folic acid 0.4 See Rx Instructions .Route 04/10/24 05/30/24 mg tablet (B Complex 1 (with folic .COMPLEX #90 tabs acid)) sennosides 8.6 mg tablet (senna) 8.6 mg PO QHS PRN constipation #30 04/12/24 05/30/24 tabs pantoprazole 40 mg tablet,delayed 40 mg PO DAILY #90 tabs 04/24/24 05/30/24 release (Protonix) insulin aspart U-100 100 unit/mL See Rx Instructions subcut AC DMT2 05/10/24 05/30/24 (3 mL) subcutaneous pen (Novolog #90 mL FlexPen U-100 Insulin aspart) atorvastatin 80 mg tablet 80 mg PO QHS #90 tabs 05/21/24 05/30/24 torsemide 20 mg tablet 20 mg PO DAILY AM #90 tabs 05/21/24 05/30/24 Previous Rx's ?Medication ?Instructions ?Recorded Oxygen #1 ea 12/19/21 3XL incontinence briefs #30 ea 05/30/22 Wheelchair #1 ea 06/08/22 allopurinol 100 mg tablet See Rx Instructions .Route 08/11/23 .COMPLEX #90 tabs amlodipine 5 mg tablet See Rx Instructions .Route 09/06/23 .COMPLEX #90 tabs clotrimazole 1 % topical cream 1 applic topical BID #45 grams 09/06/23 magnesium oxide 400 mg (241.3 mg 400 mg PO DAILY #90 tabs 09/06/23 magnesium) tablet apixaban 5 mg tablet (Eliquis) See Rx Instructions .Route 10/18/23 .COMPLEX #180 tabs insulin glargine 100 unit/mL (3 14 unit (0.14 mL) subcut HS #30 mL 01/17/24 mL) subcutaneous pen flash glucose sensor (FreeStyle #2 ea 02/23/24 Bradley 2 Sensor kit) dapagliflozin propanediol 5 mg 5 mg PO QAM #90 tabs 03/06/24 tablet (Farxiga) nystatin 100,000 unit/gram topical 1 applic topical TID #60 grams 03/12/24 powder pen needle, diabetic 31 gauge x #100 ea 03/24/2405/28 (BD Ultra-Fine Mini Pen Needle) vitamin B complex-folic acid 0.4 See Rx Instructions .Route 04/10/24 mg tablet (B Complex 1 (with folic .COMPLEX #90 tabs acid)) sennosides 8.6 mg tablet (senna) 8.6 mg PO QHS PRN constipation #30 04/12/24 tabs pantoprazole 40 mg tablet,delayed 40 mg PO DAILY #90 tabs 04/24/24 release (Protonix) insulin aspart U-100 100 unit/mL See Rx Instructions subcut AC DMT2 05/10/24 (3 mL) subcutaneous pen (Novolog #90 mL FlexPen U-100 Insulin aspart) atorvastatin 80 mg tablet 80 mg PO QHS #90 tabs 05/21/24 torsemide 20 mg tablet 20 mg PO DAILY AM #90 tabs 05/21/24 Allergies Allergy/AdvReac Type Severity Reaction Status Date / Time codeine Allergy Severe Swelling/Ed Verified 01/24/24 14:55 warner furosemide (From Lasix) Allergy Severe Swelling/Ed Verified 01/24/24 14:55 warner morphine Allergy Severe Swelling/Ed Verified 01/24/24 14:55 warner peanut Allergy Severe Nausea Verified 01/24/24 14:55 tree nut Allergy Severe Other (See Verified 01/24/24 14:55 Comment) acetaminophen (From Percocet) Allergy Intermediate ITCHY Verified 01/24/24 14:55 adhesive tape Allergy Intermediate Skin Rash Verified 01/24/24 14:55 oxycodone HCl (From Percocet) Allergy Intermediate ITCHY Verified 01/24/24 14:55 apricot Allergy Unknown Skin Rash Uncoded 01/24/24 14:55 General GERALDINE: 3 Medical Decision Making Quality:SDOH Health Related Social Needs: No Data to Display Critical Care Time Critical Care Time Critical Care Time: Yes Total Critical Care Time: 60 Attestation: Acute respiratory failure hypoxia hypercarbia PFSH All Active Problems (Updated 05/30/24 @ 15:46 by Kiran Campo MD) Non-ST elevation (NSTEMI) myocardial infarction (Acute) Acute hyperkalemia (Acute) Acute heart failure with preserved ejection fraction (HFpEF) (Acute) Acute on chronic respiratory failure with hypoxia and hypercapnia (Acute) Acute hypercapnic respiratory failure (Acute) Insulin dependent type 2 diabetes mellitus (Acute) History of frostbite (Acute) Nerve pain (Acute) Macular degeneration of both eyes (Acute) Diabetic peripheral neuropathy (Acute) ACP (advance care planning) (Acute) Right hand paresthesia (Acute) Palliative care patient (Acute) Ureteral stone (Acute ~11/2022) Nephrostomy tube Right thyroid nodule (Acute ~11/2022) Impaired instrumental activities of daily living (Acute) Deficit in activities of daily living (ADL) (Acute) Hyperuricemia (Acute) Gout (Chronic) 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) Respiratory failure with hypoxia and hypercapnia (Chronic) Chronic O2 CHF (congestive heart failure) (Acute 02/23/14) Preserved EF (10/2020 & 08/2021 ECHO) Obstructive sleep apnea (Chronic 02/23/14) 2022: Trilogy; Sleep Med Referral, 04/17/2019-->Very severe YARELY; CPAP ([facility]) with continuous O2, new Panda C-Pap 01/2021 Type II diabetes mellitus (Chronic) Hypertension (Chronic) Hyperlipidemia (Chronic) Atrial fibrillation (Chronic) Apixaban Anemia (Chronic) Pulmonary hypertension (Chronic) Dependence on supplemental oxygen (Chronic) YARELY + Pulm HTN Chronic low back pain (Chronic 07/24/15) CT-lumbar spine 2019-- Severe multilevel degenerative changes in the lumbar spine resulting in neural foraminal and central spinal canal stenosis. Chronic anticoagulation (Chronic) AF--Apixaban Risk for falls (Chronic) Sedentary lifestyle (Chronic) B12 deficiency (Chronic) Start B12 injections; elevated MCV-->converted to oral 03/2023 Obesity hypoventilation syndrome (Chronic) Obesity + Severe YARELY + Chronic Hypercapnia Dependent on walker for ambulation (Chronic) Hypomagnesemia (Acute ~07/2021) Mild mitral valve regurgitation (Acute ~08/2021) ECHO Trace tricuspid valve regurgitation (Acute ~08/2021) ECHO Medical History Bradycardia Closed stable burst fracture of ninth thoracic vertebra [facility] [place] Diverticulosis Knee pain, left Pressure sore on buttocks Trigger finger, right middle finger Injection: 05/04/2022 Right carpal tunnel syndrome Lipoma Restrictive lung disease (~03/2014) PFTs validated 04/04/2014-->see scanned docs Gout attack (~10/2020) R podagra, first attack 10/2020-->treated with colchine, effective Sciatica of right side without back pain RX Medrol Dietary counseling reviewed sodium levels in her food, how to count mg, goal of 1500 mg daily due to CHF Renal calculi Non obstructive per CT Peptic ulcer of duodenum [facility] endoscopy; RX Carafate Female hirsutism Carpal tunnel syndrome, bilateral (12/17/16) Lipoma of arm Heme + stool [facility] [place] Peptic Duodenitis (pathology report); repeat hemoccults NEG 11/2019 Folate deficiency Low 12/2018; resolved 05/2019 labs; discontinued 02/05/2020 Iron deficiency E[place] 05[place]23/[place] [facility] [place] discont supp iron & vit c 02/05/2020; Hgb stable and iron constipating; she will obtain dietarily YARELY (obstructive sleep apnea) Spinal stenosis, lumbar HTN (hypertension) Insulin dependent diabetes mellitus Edentulous H/O rotator cuff tear H/O fracture of nose h/o elbow fx Adult body mass index 50.0-59.9 Surgical History History of total knee arthroplasty bilateral History of total abdominal hysterectomy and bilateral salpingo-oophorectomy (~02/1999) History of shoulder surgery Right shoulder repair - 2004 History of carpal tunnel repair Left- 1998 Right- 2017 Colonoscopy - MAC (08/14/16) Biopsy, Temporal Artery (01/18/15) DR.C YOUNG History of total bilateral knee replacement Family History Mother Heart disease Father Heart disease Lung cancer Brother Heart disease AAA (abdominal aortic aneurysm, ruptured) Brother Obesity Son No problems noted. Daughter Stillborn, abnormal Daughter No problems noted. 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 Pets and animals: Yes Pets and animals: cat(s) Sexually active: No Do you think of yourself as: straight/heterosexual Current gender identity: female What is your relationship status?: How often do you talk on the phone with friends or family?: once per week How often do you get together with friends or relatives?: once per week Panel score (0-1 are the most socially isolated patients): 0 What type of physical activity do you participate in: none and sedentary lifestyle Special jakob needs: No Agree to transfusion: Yes Seatbelt use: always In current or past relationships, have you been: made to feel afraid Do you feel safe at home: Yes Do you feel safe in your relationship?: Yes Additional Social history: lives with son Ricco POCUS Exam (ED) Limited Cardiac Exam DATE OF EXAM: 05/30/24 TIME OF EXAM: 14:14 PROVIDER THAT PERFORMED THE STUDY: Kiran Campo IS THIS A REPEAT EXAM DURING THIS ENCOUNTER: no REASON FOR EXAM: Dyspnea VISUALIZED STRUCTURES: Four Chambers, Left ventricle and LVOT VIEW OBTAINED: Apical 4-Chamber, Parasternal long-axis and Subxiphoid PERTINENT FINDINGS/IMPRESSION: Pericardial effusion; No RV dilation DIFFERENTIAL DIAGNOSES: Aortic outflow track less than 4 cm, good squeeze, RV less than LV, trace pericardial effusion. Bilateral B-lines Exam complete
--- NOTE | 2024-05-30 13:45 | DI.RAD_ITS ---
Exam(s) XR PORTABLE CHEST AP EXAM: XR PORTABLE CHEST AP CLINICAL HISTORY: Shortness of breath TECHNIQUE: 2D digital imaging was performed of the chest. One image was obtained. An AP view was ob tained. COMPARISON: CR XR CHEST 2V PA LATERAL from 12/01/2022 CR XR PORTABLE CHEST AP from 05/22/2024 FINDINGS: There is poor inspiration. MEDIASTINUM: Normal. HEART: Heart size is at the upper limits of normal. PULMONARY VASCULATURE: There is pulmonary venous congestion. LUNGS: The nodular density previously noted in the left perihilar region appears to represent pulmona ry vessel. There are increased lung markings in the right base and the left lung base. PLEURAL SPACE: No pleural effusion or pneumothorax. BONE:Within normal limits for the patient's age. OTHER FINDINGS:Normal. IMPRESSION: 1. Mild pulmonary venous congestion. 2. Bilateral basilar infiltrates which may represent atelectasis or pneumonia. Please correlate clin ically 3. Heart size is at the upper limits of normal. DATA REPOSITORY: RADIATION DOSE DELIVERED:
[2024-05-30 13:59] LABS: BE 10 mmol/L (-2-3); HCO3 36 mmol/L (22-26); pH 7.29 (7.35-7.45); pO2 52 mmHg (80-105); sO2 84 % (95-98); tCO2 35 mmol/L (23-27)
[2024-05-30 14:03] LABS: BE (Venous) 12 mmol/L (-2-3); HCO3 (Venous) 38 mmol/L (23-28); O2 Sat (Venous) 37 %; TCO2 (Venous) 37 mmol/L (24-29); pH (Venous) 7.29 (7.31-7.41); pO2 (Venous) 24 mmHg
[2024-05-30 14:04] LABS: Abs Immature Grans 0.03 10^3/uL (0.0-0.06); Absolute Basophil Count 0.04 10^3/uL (0.0-0.2); Absolute Eosinophil Count 0.29 10^3/uL (0.0-0.7); Absolute Lymphocyte Count 0.93 10^3/uL (1.2-3.4); Absolute Monocyte Count 0.59 10^3/uL (0.1-0.8); Absolute Neutrophil Count 5.63 10^3/uL (1.2-6.7); Basophils % 0.5 %; Eosinophils % 3.9 %; HCT 33.1 % (36.0-46.0); HGB 9.6 g/dL (11.2-15.7); Immature Grans % 0.4 %; Lymphocytes % 12.4 %; MCH 30.9 pg (27.0-33.0); MCV 106 fL (80-95); MPV 10.8 fL (8.0-11.0); Monocytes % 7.9 %; Neutrophils % 74.9 %; Nucleated RBC 0.3 % (0.0-0.3); Platelet Count 187 10^3/uL (130-400); RBC 3.11 10^6/uL (3.93-5.22); RDW 19.9 % (11.7-14.6); RDW-SD 78.4 fL; WBC 7.51 10^3/uL (4.4-10.8)
[2024-05-30 14:05] LABS: FIO2L 6 L; Site Right Radial; pCO2 76 mmHg (35-45)
[2024-05-30 14:06] LABS: pCO2 (Venous) 80 mmHg (41-51)
[2024-05-30 14:16] LABS: Diff Comment Diff Reviewed; Macrocytosis 2+
[2024-05-30 14:28] LABS: Anion Gap 1.3 mmol/L (3-11); CO2 38.7 mmol/L (21.0-32.0); CREATININE 3.2 mg/dL (0.55-1.02); Calcium 9.7 mg/dL (8.5-10.1); Chloride 100 mmol/L (98-107); Estimated GFR 14.37 (mL/min/1.73m2); Glucose 207 mg/dL (74-106); Potassium 5.6 mmol/L (3.5-5.1); Sodium 140 mmol/L (136-145)
[2024-05-30 14:30] LABS: BUN 83 mg/dL (7-18); Troponin I 1089 ng/L (<or=51)
--- NOTE | 2024-05-30 14:30 | RT.EKG_ITS ---
APPROVED REPORT Exam: Resting ECG Reason for Exam: Chest pain Patient Location: E HR:75 bpm ECG Measurements Heart Rate 75 AXIS [place] [id number] P [id number] QRSd 87 QRS 266 QT 364 T 55 QTc 408 Conclusion Atrial fibrillation...V-rate 73- 95, irreg A-activity Left anterior fascicular block...axis(240,-40), init forces inf Low voltage, extremity and precordial leads...extremity<0.5mV, precordial<1.0mV
[2024-05-30] MEDS: Aspirin 81 MG CHEW 324 MG CH (14:50)
[2024-05-30] MEDS: Calcium Gluconate 4.65 MEQ/10 ML VIAL 4.65 MG IVP (14:50)
[2024-05-30 15:20] LABS: Lab Add On Test DONE
[2024-05-30 15:24] LABS: Troponin I 984 ng/L (<or=51)
[2024-05-30 15:40] LABS: Bilirubin Negative (Negative); Blood Large (Negative); Clarity Cloudy (Clear); Glucose 250 mg/dL (Negative); Ketones Negative (Negative); Leukocyte Esterase Large (Negative); Nitrite Negative (Negative); Urobilinogen 0.2 mg/dL (Up to 0.2); pH 5.5 (5-8)
[2024-05-30 15:42] LABS: NT-proBNP 9863 pg/mL (<300)
[2024-05-30] MEDS: Bumetanide 1 MG/4 ML VIAL IVP ×2 (15:54→20:28)
[2024-05-30 15:56] LABS: Bacteria Negative HPF (Negative); C & S Indicated? Yes; Casts Negative LPF (Negative); Crystals Negative HPF (Negative); Epithelial Cells Negative HPF (Negative); Mucus Negative (Negative); RBC >50 HPF (0-2); WBC >50 HPF (0-5)
--- NOTE | 2024-05-30 16:16 | HPE_ITS ---
Date of service: 05/30/24 Time of Service: 03:55 Assessment and Plan Assessment and plan (1) Non-ST elevation (NSTEMI) myocardial infarction: Status: Acute Assessment and plan: Significant troponin increase with acute worsening of shortness of breath. EKG reassuring. Troponins high but already trending down, treating respiratory failure and diuresis should help. Case reviewed by ED physician with Dr. House with [facility] cardiology. Will transition to heparin drip short term in case she develops chest pain, they would consider acute cath. She is also on aspirin along with her chronic high intensity statin. Recent LDL well controlled at 55. Try to keep O2 sats in high 80s (2) CHF (congestive heart failure): Status: Acute Assessment and plan: preserved LVEF, significant pulmonary HTN but nl right heart on echo last week. ED assessment c/w some degree of acute CHF, though exam and CXR are difficult to interpret Her weight is up from discharge weight BNaP is high but chronically high S/p bumetanide 1mg in ED, will continue this BID (3) Acute on chronic respiratory failure with hypoxia and hypercapnia: Status: Acute Assessment and plan: She is chronic CO2 retainer but pCO2 above expected baseline given her HC03, and she is hypoxic compared to her baseline. On NIV here, admit to ICU for close monitoring. Repeat ABG as her PO2 was still low, I don't want her hypoxic given NSTEMI (4) Atrial fibrillation: Status: Chronic Assessment and plan: Anticoagulated, continue metoprolol for rate control. (5) Insulin dependent type 2 diabetes mellitus: Status: Acute Assessment and plan: continue home insulin. get A1c consider GLP-[facility] (6) CKD stage 4 due to type 2 diabetes mellitus: Status: Chronic Assessment and plan: Cr slightly above baseline, continue to monitor. Corrected calcium is high, she likely has secondary hyperPTH, will get labs to confirm (7) Acute hyperkalemia: Status: Acute Assessment and plan: Mild, but acute. S/p calcium gluconate in ED. EKG reassuring. Should come down with loop diuretic. Repeat K+ this evening, if not coming down use lokelma. (8) Anemia: Status: Chronic Assessment and plan: Chronic, a/w CKD. Near baseline. History of Present Illness History of Present Illness Chief Complaint: short of breath Narrative: 78-year-old morbidly obese female with past medical history of HFpEF, A-fib, BMI>40, pulmonary hypertension, IDDM and YARELY/OHS on trilogy with chronic hypoxic/hypercarbic respiratory failure requiring 4 L nasal cannula at baseline who presents to the emergency department with increased shortness of breath. She states she woke up at 3am feelign more short of breath with dry mouth. She has never had chest pain or palpitations since this started. She relates the dry mouth to her trilogy machine, which she was wearing. She was sleeping in the recliner as usual. She has felt more short of breath since then. Per EMS was on 15 liters with mask, typical O2 is 4 liters. She was given 1mg bumetanide in the ED. Of note she was admitted 05/22-05/24 for respiratory failure. She was not using her trilogy home respiratory and was hypoxic and hypercarbic. She was treated for CHF with bumetanide. She had and echo that was significant for pulmonary HTN. When she went on BiPAP, then her home machine here she improved and was discharged home. She was also treated for a UTI during that admission and had just completed her oral cefpoxime for that 05/29, though the culture grew mixed kamila. Review of Systems All systems reviewed & are unremarkable except as noted in HPI and below ENT Comments: no URI symptoms Cardiovascular Cardiovascular: Reports leg edema (not clearly more than usual) and Reports orthopnea (chronic) Respiratory Respiratory: Denies hemoptysis and Denies excessive phlegm production PFSH All Active Problems Non-ST elevation (NSTEMI) myocardial infarction (Acute) Acute hyperkalemia (Acute) Acute heart failure with preserved ejection fraction (HFpEF) (Acute) Acute on chronic respiratory failure with hypoxia and hypercapnia (Acute) Acute hypercapnic respiratory failure (Acute) Insulin dependent type 2 diabetes mellitus (Acute) History of frostbite (Acute) Nerve pain (Acute) Macular degeneration of both eyes (Acute) Diabetic peripheral neuropathy (Acute) ACP (advance care planning) (Acute) Right hand paresthesia (Acute) Palliative care patient (Acute) Ureteral stone (Acute ~11/2022) Nephrostomy tube Right thyroid nodule (Acute ~11/2022) Impaired instrumental activities of daily living (Acute) Deficit in activities of daily living (ADL) (Acute) Hyperuricemia (Acute) Gout (Chronic) 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) Respiratory failure with hypoxia and hypercapnia (Chronic) Chronic O2 Trace tricuspid valve regurgitation (Acute ~08/2021) ECHO Mild mitral valve regurgitation (Acute ~08/2021) ECHO Hypomagnesemia (Acute ~07/2021) Dependent on walker for ambulation (Chronic) Obesity hypoventilation syndrome (Chronic) Obesity + Severe YARELY + Chronic Hypercapnia B12 deficiency (Chronic) Start B12 injections; elevated MCV-->converted to oral 03/2023 Sedentary lifestyle (Chronic) Risk for falls (Chronic) Chronic anticoagulation (Chronic) AF--Apixaban Chronic low back pain (Chronic 07/24/15) CT-lumbar spine 2019-- Severe multilevel degenerative changes in the lumbar spine resulting in neural foraminal and central spinal canal stenosis. Dependence on supplemental oxygen (Chronic) YARELY + Pulm HTN Pulmonary hypertension (Chronic) Anemia (Chronic) Atrial fibrillation (Chronic) Apixaban Hyperlipidemia (Chronic) Hypertension (Chronic) Type II diabetes mellitus (Chronic) Obstructive sleep apnea (Chronic 02/23/14) 2022: Trilogy; Sleep Med Referral, 04/17/2019-->Very severe YARELY; CPAP ([facility]) with continuous O2, new Panda C-Pap 01/2021 CHF (congestive heart failure) (Acute 02/23/14) Preserved EF (10/2020 & 08/2021 ECHO) Medical History Closed stable burst fracture of ninth thoracic vertebra [facility] [place]-03/01/23 Diverticulosis Knee pain, left Pressure sore on buttocks Bradycardia Trigger finger, right middle finger Injection: 05/04/2022 Right carpal tunnel syndrome Lipoma Restrictive lung disease (~03/2014) PFTs validated 04/04/2014-->see scanned docs Gout attack (~10/2020) R podagra, first attack 10/2020-->treated with colchine, effective Sciatica of right side without back pain RX Medrol Dietary counseling reviewed sodium levels in her food, how to count mg, goal of 1500 mg daily due to CHF Renal calculi Non obstructive per CT Peptic ulcer of duodenum [facility] [place] upper endoscopy; RX Carafate Female hirsutism Carpal tunnel syndrome, bilateral (12/17/16) Lipoma of arm Heme + stool [facility] [place] GI Endoscopy Peptic Duodenitis (pathology report); repeat hemoccults NEG 11/2019 Folate deficiency Low 12/2018; resolved 05/2019 labs; discontinued 02/05/2020 Iron deficiency EGD 05/23/19 [place] [facility] [place]; discont supp iron & vit c 02/05/2020; Hgb stable and iron constipating; she will obtain dietarily YARELY (obstructive sleep apnea) Spinal stenosis, lumbar HTN (hypertension) Insulin dependent diabetes mellitus Edentulous H/O rotator cuff tear H/O fracture of nose h/o elbow fx Adult body mass index 50.0-59.9 Surgical History History of total knee arthroplasty bilateral History of total abdominal hysterectomy and bilateral salpingo-oophorectomy (~02/1999) History of shoulder surgery Right shoulder repair - 2004 History of carpal tunnel repair Left- 1998 Right- 2017 Colonoscopy - MAC (08/14/16) Biopsy, Temporal Artery (01/18/15) DR.C YOUNG History of total bilateral knee replacement Family History Mother Heart disease Father Heart disease Lung cancer Brother Heart disease AAA (abdominal aortic aneurysm, ruptured) Brother Obesity Son No problems noted. Daughter Stillborn, abnormal Daughter No problems noted. Social History Smoking/Tobacco Use Status: Never Second Hand Exposure: Yes Smoking risk assessment performed?: Yes Alcohol Intake: former Details: never drank heavily but her husbands did Drug use: Never Substance use type: does not use Adopted: No Caregiver/Support person: Yes Foster care: No Household members: children Housing: house Number of Children: 2 number of grandchildren: 8 Communication Needs: Corrective Lenses Education Level: middle school Do you need help understanding health information?: Always current occupation: Retired- [employer] Pets and animals: Yes Pets and animals: cat(s) Sexually active: No Do you think of yourself as: straight/heterosexual Current gender identity: female What is your relationship status?: How often do you talk on the phone with friends or family?: once per week How often do you get together with friends or relatives?: once per week Panel score (0-1 are the most socially isolated patients): 0 What type of physical activity do you participate in: none and sedentary lifestyle Special jakob needs: No Agree to transfusion: Yes Seatbelt use: always In current or past relationships, have you been: made to feel afraid Do you feel safe at home: Yes Do you feel safe in your relationship?: Yes Additional Social history: lives with son Ricco Oliver Allergies and Home Medications Allergies Allergy/AdvReac Type Severity Reaction Status Date / Time codeine Allergy Severe Swelling/Ed Verified 01/24/24 14:55 awrner furosemide (From Lasix) Allergy Severe Swelling/Ed Verified 01/24/24 14:55 warner morphine Allergy Severe Swelling/Ed Verified 01/24/24 14:55 warner peanut Allergy Severe Nausea Verified 01/24/24 14:55 tree nut Allergy Severe Other (See Verified 01/24/24 14:55 Comment) acetaminophen (From Percocet) Allergy Intermediate ITCHY Verified 01/24/24 14:55 adhesive tape Allergy Intermediate Skin Rash Verified 01/24/24 14:55 oxycodone HCl (From Percocet) Allergy Intermediate ITCHY Verified 01/24/24 14:55 apricot Allergy Unknown Skin Rash Uncoded 01/24/24 14:55 Home Medications ?Medication ?Instructions ?Recorded ?Confirmed ?Type acetaminophen 500 mg tablet 500 mg PO Q6H PRN 12/04/19 05/30/24 History (Tylenol Extra Strength) Oxygen #1 ea 12/19/21 05/30/24 Rx docusate sodium 100 mg capsule 100 mg PO BID PRN 02/10/22 05/30/24 History (Colace) 3XL incontinence briefs #30 ea 05/30/22 05/30/24 Rx Wheelchair #1 ea 06/08/22 05/30/24 Rx polyethylene glycol 3350 17 17 g PO DAILY PRN 02/24/23 05/30/24 History gram/dose oral powder (ClearLax) bismuth subsalicylate 262 mg/15 mL 524 mg PO QID 03/05/23 05/30/24 History oral suspension (Anti-Diarrheal) allopurinol 100 mg tablet See Rx Instructions .Route 08/11/23 05/30/24 Rx .COMPLEX #90 tabs amlodipine 5 mg tablet See Rx Instructions .Route 09/06/23 05/30/24 Rx .COMPLEX #90 tabs clotrimazole 1 % topical cream 1 applic topical BID #45 grams 09/06/23 05/30/24 Rx magnesium oxide 400 mg (241.3 mg 400 mg PO DAILY #90 tabs 09/06/23 05/30/24 Rx magnesium) tablet apixaban 5 mg tablet (Eliquis) See Rx Instructions .Route 10/18/23 05/30/24 Rx .COMPLEX #180 tabs insulin glargine 100 unit/mL (3 14 unit (0.14 mL) subcut HS #30 mL 01/17/24 05/30/24 Rx mL) subcutaneous pen calcium 600 mg (as 1 tab PO DAILY 01/24/24 05/30/24 History carbonate)-vitamin D3 20 mcg (800 unit) tablet Preservision 1 cap PO DAILY 02/17/24 05/30/24 History flash glucose sensor (FreeStyle #2 ea 02/23/24 05/30/24 Rx Bradley 2 Sensor kit) dapagliflozin propanediol 5 mg 5 mg PO QAM #90 tabs 03/06/24 05/30/24 Rx tablet (Farxiga) nystatin 100,000 unit/gram topical 1 applic topical TID #60 grams 03/12/24 05/30/24 Rx powder pen needle, diabetic 31 gauge x #100 ea 03/24/24 05/30/24 Rx 3/16 (BD Ultra-Fine Mini Pen Needle) vitamin B complex-folic acid 0.4 See Rx Instructions .Route 04/10/24 05/30/24 Rx mg tablet (B Complex 1 (with folic .COMPLEX #90 tabs acid)) sennosides 8.6 mg tablet (senna) 8.6 mg PO QHS PRN constipation #30 04/12/24 05/30/24 Rx tabs pantoprazole 40 mg tablet,delayed 40 mg PO DAILY #90 tabs 04/24/24 05/30/24 Rx release (Protonix) insulin aspart U-100 100 unit/mL See Rx Instructions subcut AC DMT2 05/10/24 05/30/24 Rx (3 mL) subcutaneous pen (Novolog #90 mL FlexPen U-100 Insulin aspart) atorvastatin 80 mg tablet 80 mg PO QHS #90 tabs 05/21/24 05/30/24 Rx torsemide 20 mg tablet 20 mg PO DAILY AM #90 tabs 05/21/24 05/30/24 Rx Exam Narrative Exam Narrative: GEN: Alert and oriented x 4, mentally sharp, cooperative, gives linear history. No acute distress at rest. HEENT: Head atraumatic. Conjunctiva clear, no icterus. PEERL, EOMI. no rhinorrhea. MMM, OP benign. Neck is supple with no masses or lymphadenopathy, trachea midline. I could not appreciate elevation of JVP LUNGS: Somewhat diminished diffusely, I don't appreciate rales or wheezes currently, on BiPAP but able to speak in short sentences. CV: irregularly irregular, normal rate, with no murmurs, gallops, or rubs. ABD: active bowel sounds, soft, nontender and nondistended. No masses. EXT: no cyanosis, clubbing. Warm. 1+ kira pitting edema to shins MSK: No joint redness or swelling NEURO: CN 2-12 grossly intact. Normal movement of 4 extremities. Normal speech and coordination. No tremor SKIN: No rashes or open wounds. PSYCH: normal mood and affect, normal thought process Results Imaging Chest x-ray: report reviewed (1. Mild pulmonary venous congestion. 2. Bilateral basilar infiltrates which may represent atelectasis or pneumonia. Please correlate clinically 3. Heart size is at the upper limits of normal. ) and image reviewed EKG: report reviewed and image reviewed (Atrial fibrillation. left axis. peaked T-waves. No ST elevation or depression. No significant change on 2 EKGs or since 05/22.) Labs 05/30/24 13:55 05/30/24 13:55 Labs: Laboratory Results - last 24 hr 05/30/24 05/30/24 05/30/24 13:55 13:58 14:05 WBC 7.51 RBC 3.11 L Hgb 9.6 L Hct 33.1 L MCV 106 H MCH 30.9 MCHC 29.0 L RDW 19.9 H Plt Count 187 MPV 10.8 Immature Gran % 0.4 Neutrophils % 74.9 Lymphocytes % 12.4 Monocytes % 7.9 Eosinophils % 3.9 Basophils % 0.5 Nucleated RBC % 0.3 Absolute Neutrophils 5.63 Absolute Lymphocytes 0.93 L Absolute Monocytes 0.59 Absolute Eosinophils 0.29 Absolute Basophils 0.04 RBC Morphology See Below Macrocytosis 2+ ABG Sample Site Right Radial ABG pH 7.29 L ABG pCO2 76 H* ABG pO2 52 L ABG HCO3 36 H ABG Total CO2 35 H ABG O2 Saturation 84 L ABG Base Excess 10 H VBG pH 7.29 L VBG pCO2 80 H* VBG pO2 24 VBG HCO3 38 H VBG Total CO2 37 H VBG O2 Saturation 37 VBG Base Excess 12 H Oxygen Liter Flow 6 Sodium 140 Potassium 5.6 H Chloride 100 Carbon Dioxide 38.7 H Anion Gap 1.3 L BUN 83 H* Creatinine 3.2 H Est GFR (CKD-EPI 2020) 14.37 Glucose 207 H Calcium 9.7 Troponin I 1089 H* NT-Pro-B Natriuret Pep 9863 H Urine Color Urine Clarity Urine pH Ur Specific [place] Urine Protein Urine Ketones Urine Blood Urine Nitrite Urine Bilirubin Urine Urobilinogen Ur Leukocyte Esterase Urine RBC Urine WBC Ur Epithelial Cells Urine Crystals Urine Bacteria Urine Casts Urine Mucus Ur Culture Indicated? Urine Glucose Add-On Test Request DONE 05/30/24 05/30/24 14:52 15:29 WBC RBC Hgb Hct MCV MCH MCHC RDW Plt Count MPV Immature Gran % Neutrophils % Lymphocytes % Monocytes % Eosinophils % Basophils % Nucleated RBC % Absolute Neutrophils Absolute Lymphocytes Absolute Monocytes Absolute Eosinophils Absolute Basophils RBC Morphology Macrocytosis ABG Sample Site ABG pH ABG pCO2 ABG pO2 ABG HCO3 ABG Total CO2 ABG O2 Saturation ABG Base Excess VBG pH VBG pCO2 VBG pO2 VBG HCO3 VBG Total CO2 VBG O2 Saturation VBG Base Excess Oxygen Liter Flow Sodium Potassium Chloride Carbon Dioxide Anion Gap BUN Creatinine Est GFR (CKD-EPI 2020) Glucose Calcium Troponin I 984 H* NT-Pro-B Natriuret Pep Urine Color Yellow Urine Clarity Cloudy Urine pH 5.5 Ur Specific [place] 1.020 Urine Protein 100 H Urine Ketones Negative Urine Blood Large H Urine Nitrite Negative Urine Bilirubin Negative Urine Urobilinogen 0.2 Ur Leukocyte Esterase Large H Urine RBC >50 H Urine WBC >50 H Ur Epithelial Cells Negative Urine Crystals Negative Urine Bacteria Negative Urine Casts Negative Urine Mucus Negative Ur Culture Indicated? Yes Urine Glucose 250 H Add-On Test Request Last Vital Signs Temp 36.4 C L 05/30/24 13:25 Pulse 79 05/30/24 16:01 Resp 20 05/30/24 16:10 BP 137/89 05/30/24 16:01 Pulse Ox 93 05/30/24 16:01 Time Spent Time spent with Patient: >75 minutes Time was spent: preparing to see the patient(eg.review tests), obtaining and/or reviewing separately otained hiistory, ordering medications,tests, procedures, referring, communicating with other health overnight caregiver, indepentently interpreting results, counseling the patient and care coordination
[2024-05-30] MEDS: cefTRIAXone 2 GM/50 ML BAG IVPB (17:29)
--- NOTE | 2024-05-30 17:39 | W.PC.ACHO ---
Registration Status: Primary Language: Preferred Language: ED Information & Data Chief Complaint RespSymp 05/30/24 13:24 Chief Complaint RespSymp 05/30/24 13:21 Triage Note recent d/c, return in resp 05/30/24 13:21 distress. Medical / Surgical History (Last Reviewed 05/30/24 @ 16:51 by Kiran Vargas) Bradycardia Closed stable burst fracture of ninth thoracic vertebra Diverticulosis Knee pain, left Pressure sore on buttocks Trigger finger, right middle finger Right carpal tunnel syndrome Lipoma Restrictive lung disease (~03/2014) Gout attack (~10/2020) Sciatica of right side without back pain Dietary counseling Renal calculi Peptic ulcer of duodenum Female hirsutism Carpal tunnel syndrome, bilateral (12/17/16) Lipoma of arm Heme + stool Folate deficiency Iron deficiency YARELY (obstructive sleep apnea) Spinal stenosis, lumbar HTN (hypertension) Insulin dependent diabetes mellitus Edentulous H/O rotator cuff tear H/O fracture of nose h/o elbow fx Adult body mass index 50.0-59.9 (Last Reviewed 05/30/24 @ 16:51 by Kiran Vargas) History of total knee arthroplasty History of total abdominal hysterectomy and bilateral salpingo-oophorectomy (~02/1999) History of shoulder surgery History of carpal tunnel repair Colonoscopy - MAC (08/14/16) Biopsy, Temporal Artery (01/18/15) History of total bilateral knee replacement Most Recent Vital Signs Temperature 36.4 C L 05/30/24 13:25 Temperature Source Oral 05/30/24 13:25 Pulse 75 05/30/24 16:31 Pulse 73 05/30/24 16:31 Respiratory Rate 15 05/30/24 16:31 Respiratory Effort Short of Breath, Labored, Accessory Muscle Use 05/30/24 14:00 Respiratory Depth Normal 05/30/24 14:00 Blood Pressure 119/65 05/30/24 16:31 Blood Pressure Mean 81 05/30/24 16:31 Blood Pressure Position Sitting 05/30/24 13:21 Pulse Oximetry 89 L 05/30/24 16:31 Respiratory End-tidal CO2 67 05/30/24 13:23 Oxygen Delivery Method Non-Rebreather 05/30/24 13:25 Oxygen Flow Rate 15 05/30/24 13:25 Fraction of Inspired Oxygen (FIO2) 45 05/30/24 15:34 End Tidal Co2 69 05/30/24 13:25 Pain Level 8 05/30/24 13:25 Comment NRB 05/30/24 13:22 Allergies codeine Allergy (Severe, Verified 01/24/24 14:55) Swelling/Edema furosemide (From Lasix) Allergy (Severe, Verified 01/24/24 14:55) Swelling/Edema morphine Allergy (Severe, Verified 01/24/24 14:55) Swelling/Edema peanut Allergy (Severe, Verified 01/24/24 14:55) Nausea tree nut Allergy (Severe, Verified 01/24/24 14:55) Other (See Comment) Vomiting and Itching acetaminophen (From Percocet) Allergy (Intermediate, Verified 01/24/24 14:55) ITCHY adhesive tape Allergy (Intermediate, Verified 01/24/24 14:55) Skin Rash oxycodone HCl (From Percocet) Allergy (Intermediate, Verified 01/24/24 14:55) ITCHY apricot Allergy (Unknown, Uncoded 01/24/24 14:55) Skin Rash per pt. report Precautions Isolation Standard precaution 05/30/24 13:24 IV IV Catheter Type [Left Upper Peripheral IV arm] IV Catheter Gauge [Left Upper 18 arm] Diet Orders Category Date Time Status Diabetes Consistent CHO/Heart Healthy [DIET] Nutrition 05/30/24 Dinner Active Diagnostics 05/30/24 05/30/24 05/30/24 Range/Units 18:00 17:23 16:55 WBC (4.4-10.8) 10^3/uL RBC (3.93-5.22) 10^6/uL Hgb (11.2-15.7) g/dL Hct (36.0-46.0) % MCV (80-95) fL MCH (27.0-33.0) pg MCHC (32.0-36.0) % RDW (11.7-14.6) % Plt Count (130-400) 10^3/uL MPV (8.0-11.0) fL Immature Gran % % Neutrophils % % Lymphocytes % % Monocytes % % Eosinophils % % Basophils % % Nucleated RBC % (0.0-0.3) % Absolute Neutrophils (1.2-6.7) 10^3/uL Absolute Lymphocytes (1.2-3.4) 10^3/uL Absolute Monocytes (0.1-0.8) 10^3/uL Absolute Eosinophils (0.0-0.7) 10^3/uL Absolute Basophils (0.0-0.2) 10^3/uL RBC Morphology Macrocytosis ABG Sample Site Pending ABG pH Pending (7.35-7.45) ABG pCO2 Pending (35-45) mmHg ABG pO2 Pending (80-105) mmHg ABG HCO3 Pending (22-26) mmol/L ABG Total CO2 Pending (23-27) mmol/L ABG O2 Saturation Pending (95-98) % ABG Base Excess Pending (-2-3) mmol/L VBG pH (7.31-7.41) VBG pCO2 (41-51) mmHg VBG pO2 mmHg VBG HCO3 (23-28) mmol/L VBG Total CO2 (24-29) mmol/L VBG O2 Saturation % VBG Base Excess (-2-3) mmol/L Oxygen Liter Flow L Sodium (136-145) mmol/L Potassium Pending (3.5-5.1) mmol/L Chloride (98-107) mmol/L Carbon Dioxide (21.0-32.0) mmol/L Anion Gap (3-11) mmol/L BUN (7-18) mg/dL Creatinine (0.55-1.02) mg/dL Est GFR (CKD-EPI 2020) (mL/min/1.73m2) Glucose (74-106) mg/dL Hemoglobin A1c Pending Calcium (8.5-10.1) mg/dL Troponin I Pending (<or=51) ng/L NT-Pro-B Natriuret Pep (<300) pg/mL Urine Color (Yellow) Urine Clarity (Clear) Urine pH (5-8) Ur Specific [place] (1.005-1.025) Urine Protein (Neg-Trace) mg/dL Urine Ketones (Negative) mg/dL Urine Blood (Negative) Urine Nitrite (Negative) Urine Bilirubin (Negative) Urine Urobilinogen (Up to 0.2) mg/dL Ur Leukocyte Esterase (Negative) Urine RBC (0-2) HPF Urine WBC (0-5) HPF Ur Epithelial Cells (Negative) HPF Urine Crystals (Negative) HPF Urine Bacteria (Negative) HPF Urine Casts (Negative) LPF Urine Mucus (Negative) Ur Culture Indicated? Urine Glucose (Negative) mg/dL COVID-19 Source SARS-CoV-2 (PCR) Influenza Type A (PCR) Influenza Type B (PCR) RSV (PCR) Add-On Test Request 05/30/24 05/30/24 05/30/24 Range/Units 15:29 14:52 14:05 WBC (4.4-10.8) 10^3/uL RBC (3.93-5.22) 10^6/uL Hgb (11.2-15.7) g/dL Hct (36.0-46.0) % MCV (80-95) fL MCH (27.0-33.0) pg MCHC (32.0-36.0) % RDW (11.7-14.6) % Plt Count (130-400) 10^3/uL MPV (8.0-11.0) fL Immature Gran % % Neutrophils % % Lymphocytes % % Monocytes % % Eosinophils % % Basophils % % Nucleated RBC % (0.0-0.3) % Absolute Neutrophils (1.2-6.7) 10^3/uL Absolute Lymphocytes (1.2-3.4) 10^3/uL Absolute Monocytes (0.1-0.8) 10^3/uL Absolute Eosinophils (0.0-0.7) 10^3/uL Absolute Basophils (0.0-0.2) 10^3/uL RBC Morphology Macrocytosis ABG Sample Site ABG pH (7.35-7.45) ABG pCO2 (35-45) mmHg ABG pO2 (80-105) mmHg ABG HCO3 (22-26) mmol/L ABG Total CO2 (23-27) mmol/L ABG O2 Saturation (95-98) % ABG Base Excess (-2-3) mmol/L VBG pH (7.31-7.41) VBG pCO2 (41-51) mmHg VBG pO2 mmHg VBG HCO3 (23-28) mmol/L VBG Total CO2 (24-29) mmol/L VBG O2 Saturation % VBG Base Excess (-2-3) mmol/L Oxygen Liter Flow L Sodium (136-145) mmol/L Potassium (3.5-5.1) mmol/L Chloride (98-107) mmol/L Carbon Dioxide (21.0-32.0) mmol/L Anion Gap (3-11) mmol/L BUN (7-18) mg/dL Creatinine (0.55-1.02) mg/dL Est GFR (CKD-EPI 2020) (mL/min/1.73m2) Glucose (74-106) mg/dL Hemoglobin A1c Calcium (8.5-10.1) mg/dL Troponin I 984 H* (<or=51) ng/L NT-Pro-B Natriuret Pep (<300) pg/mL Urine Color Yellow (Yellow) Urine Clarity Cloudy (Clear) Urine pH 5.5 (5-8) Ur Specific [place] 1.020 (1.005-1.025) Urine Protein 100 H (Neg-Trace) mg/dL Urine Ketones Negative (Negative) mg/dL Urine Blood Large H (Negative) Urine Nitrite Negative (Negative) Urine Bilirubin Negative (Negative) Urine Urobilinogen 0.2 (Up to 0.2) mg/dL Ur Leukocyte Esterase Large H (Negative) Urine RBC >50 H (0-2) HPF Urine WBC >50 H (0-5) HPF Ur Epithelial Cells Negative (Negative) HPF Urine Crystals Negative (Negative) HPF Urine Bacteria Negative (Negative) HPF Urine Casts Negative (Negative) LPF Urine Mucus Negative (Negative) Ur Culture Indicated? Yes Urine Glucose 250 H (Negative) mg/dL COVID-19 Source SARS-CoV-2 (PCR) Influenza Type A (PCR) Influenza Type B (PCR) RSV (PCR) Add-On Test Request DONE 05/30/24 05/30/24 05/30/24 Range/Units 13:58 13:55 13:35 WBC 7.51 (4.4-10.8) 10^3/uL RBC 3.11 L (3.93-5.22) 10^6/uL Hgb 9.6 L (11.2-15.7) g/dL Hct 33.1 L (36.0-46.0) % MCV 106 H (80-95) fL MCH 30.9 (27.0-33.0) pg MCHC 29.0 L (32.0-36.0) % RDW 19.9 H (11.7-14.6) % Plt Count 187 (130-400) 10^3/uL MPV 10.8 (8.0-11.0) fL Immature Gran % 0.4 % Neutrophils % 74.9 % Lymphocytes % 12.4 % Monocytes % 7.9 % Eosinophils % 3.9 % Basophils % 0.5 % Nucleated RBC % 0.3 (0.0-0.3) % Absolute Neutrophils 5.63 (1.2-6.7) 10^3/uL Absolute Lymphocytes 0.93 L (1.2-3.4) 10^3/uL Absolute Monocytes 0.59 (0.1-0.8) 10^3/uL Absolute Eosinophils 0.29 (0.0-0.7) 10^3/uL Absolute Basophils 0.04 (0.0-0.2) 10^3/uL RBC Morphology See Below Macrocytosis 2+ ABG Sample Site Right Radial ABG pH 7.29 L (7.35-7.45) ABG pCO2 76 H* (35-45) mmHg ABG pO2 52 L (80-105) mmHg ABG HCO3 36 H (22-26) mmol/L ABG Total CO2 35 H (23-27) mmol/L ABG O2 Saturation 84 L (95-98) % ABG Base Excess 10 H (-2-3) mmol/L VBG pH 7.29 L (7.31-7.41) VBG pCO2 80 H* (41-51) mmHg VBG pO2 24 mmHg VBG HCO3 38 H (23-28) mmol/L VBG Total CO2 37 H (24-29) mmol/L VBG O2 Saturation 37 % VBG Base Excess 12 H (-2-3) mmol/L Oxygen Liter Flow 6 L Sodium 140 (136-145) mmol/L Potassium 5.6 H (3.5-5.1) mmol/L Chloride 100 (98-107) mmol/L Carbon Dioxide 38.7 H (21.0-32.0) mmol/L Anion Gap 1.3 L (3-11) mmol/L BUN 83 H* (7-18) mg/dL Creatinine 3.2 H (0.55-1.02) mg/dL Est GFR (CKD-EPI 2020) 14.37 (mL/min/1.73m2) Glucose 207 H (74-106) mg/dL Hemoglobin A1c Calcium 9.7 (8.5-10.1) mg/dL Troponin I 1089 H* (<or=51) ng/L NT-Pro-B Natriuret Pep 9863 H (<300) pg/mL Urine Color (Yellow) Urine Clarity (Clear) Urine pH (5-8) Ur Specific [place] (1.005-1.025) Urine Protein (Neg-Trace) mg/dL Urine Ketones (Negative) mg/dL Urine Blood (Negative) Urine Nitrite (Negative) Urine Bilirubin (Negative) Urine Urobilinogen (Up to 0.2) mg/dL Ur Leukocyte Esterase (Negative) Urine RBC (0-2) HPF Urine WBC (0-5) HPF Ur Epithelial Cells (Negative) HPF Urine Crystals (Negative) HPF Urine Bacteria (Negative) HPF Urine Casts (Negative) LPF Urine Mucus (Negative) Ur Culture Indicated? Urine Glucose (Negative) mg/dL COVID-19 Source Pending SARS-CoV-2 (PCR) Pending Influenza Type A (PCR) Pending Influenza Type B (PCR) Pending RSV (PCR) Pending Add-On Test Request 05/30/24 15:29 Urine Culture - Pending Urine - Reflex from Ua Intake and Output - 24 Hour Total 05/30/24 13:11 thru 05/30/24 13:21 Weight 110.45 kg Falls Risk Assessment History of Falls Previous History 05/30/24 14:01 Contributing Factors Unstable,Impairments, 05/30/24 14:01 Incontinence,Medications Ambulatory Aids Uses ambulatory device 05/30/24 14:01 Tubes/Lines W/no contributing factors 05/30/24 14:01 Gait Evaluation W/no contributing factors 05/30/24 14:01 Cognition No cognitive impairment 05/30/24 14:01 Fall Total Score 62 05/30/24 14:01 Level of Risk High Risk 05/30/24 14:01 Problems (Last Reviewed 05/30/24 @ 16:51 by Kiran Vargas) Non-ST elevation (NSTEMI) myocardial infarction (Acute) Acute hyperkalemia (Acute) Acute heart failure with preserved ejection fraction (HFpEF) (Acute) Acute on chronic respiratory failure with hypoxia and hypercapnia (Acute) Insulin dependent type 2 diabetes mellitus (Acute) 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 Information / Comments: Report received from: Lilliana Lemon
[2024-05-30 18:23] LABS: Troponin I 968 ng/L (<or=51)
--- NOTE | 2024-05-30 18:24 | RESPIRATORY ---
Pt's own Panda Respironics Trilogy Machine AVAPS-AE Passive circuit VT: 400 Max Pressure: 20 EPAP Min/Max: 5/10 PS Min/Max: 5/15 Breath Rate: Auto Pt uses mouth mask with integrated nasal pillow. 4L O2 bleed in at baseline. No humidification. DME: [facility] Oxygen DME: [facility] - 4L O2, 24/7 including 4L bleed in through Trilogy machine overnight and with SOB/WOB.
[2024-05-30 18:39] LABS: COVID-19 PCR Negative (Negative); Influenza A PCR Negative (Negative); Influenza B PCR Negative (Negative); RSV PCR Negative (Negative)
[2024-05-30 18:42] LABS: Source Nasopharynx
[2024-05-30 19:18] LABS: BE (Venous) 12 mmol/L (-2-3); HCO3 (Venous) 38 mmol/L (23-28); O2 Sat (Venous) 37 %; TCO2 (Venous) 37 mmol/L (24-29); pH (Venous) 7.32 (7.31-7.41); pO2 (Venous) 24 mmHg
[2024-05-30 19:52] LABS: Potassium 6.2 mmol/L (3.5-5.1)
[2024-05-30] MEDS: Insulin Glargine 300 UNITS/3 ML PEN 14 UNITS SC (20:27)
[2024-05-30] MEDS: Atorvastatin 40 MG TAB 80 MG PO (20:29)
[2024-05-30] MEDS: Sodium Zirconium Cyclosilicate 10 GM PKT PO (20:34)
[2024-05-30] MEDS: Insulin Aspart 300 UNITS/3 ML PEN SC (20:38)
[2024-05-30] MEDS: Heparin in 0.45% NaCl 25,000 UNIT/250 ML BAG 10 UNIT IVINF (21:00)
[2024-05-30 23:23] LABS: pCO2 (Venous) 74 mmHg (41-51)
[2024-05-31] VITALS (45 sets, daily range): BP systolic 100–133; BP diastolic 48–92; PULSE 69–125; RESP 5–31; TEMP 31–37.1; O2SAT 78–95
[2024-05-31] MEDS: Sodium Zirconium Cyclosilicate 10 GM PKT PO (06:24)
[2024-05-31] MEDS: Bumetanide 1 MG/4 ML VIAL IVP ×2 (07:57→11:52)
[2024-05-31] MEDS: Vitamins B Comp w/C TAB 1 TAB PO (07:57)
[2024-05-31] MEDS: amLODIPine 5 MG TAB PO (07:58)
[2024-05-31] MEDS: Preservision CAPSULE 1 CAP PO (07:58)
[2024-05-31] MEDS: Magnesium Oxide 400 MG TAB PO (07:58)
[2024-05-31] MEDS: Pantoprazole 40 MG TABCR PO (07:58)
[2024-05-31] MEDS: Allopurinol 100 MG TAB PO (07:58)
--- NOTE | 2024-05-31 08:34 | INITIAL_ITS ---
Date of service: 05/31/24 Time of Service: 08:34 Care Management Initial Assmt Initial Assessment Reason for Hospitalization: NSTEMI Functional Status/Living Situation Patient Presentation: Mohan was sitting up in bed when CM met with her. She was alert and oriented and easily engaged with CM. Mohan was admitted with an NSTEMI and likely an exacerbation of her chronic CHF. She is on 4L/min of nasal O2 at baseline and required 15L with a mask when EMS responded. Mohan lives in a mobile home in [place] with her son Blu who is her caregiver. She has CFC moderate needs and has applied for LTM to enable Blu to be compensated for the care he provides. Mohan has a wheelchair, FWW, cane and home O2 and a Trilogy machine. She is able to sponge bathe herself but Blu helps her get dressed and does the cooking, shopping and microsoft net developer. She was recently discharged from [facility] (05/24/24) and had new home health services for PT, OT and RN ordered. She had her intake visit yesterday and it was the nurse who sent her back to the hospital. 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) Instrumental Activities of Daily Living (ADLs): Requires support Medications Medication Management: No Issues/Barriers identified Physical Functioning/Mobility Assistive Device: W/C, FWW, home O2, Trilogy Advance Directives Advance Directives: Do you have an Advance Directive: Y 08/24/23 13:50 AD On File at [facility]: Y 08/24/23 13:50 Date Asked 05/22/24 05/22/24 17:52 AD Date Reviewed 05/22/24 05/22/24 13:57 COLST On File at [facility] No 08/24/23 13:50 COLST Date Scanned Code Status Resuscitation Status Full Code Portal Pt does not currently have a portal and education provided: Yes Insurance Coverage/Financial Issues Insurance: Medicare Medicaid Financial Assist 100 Care Team Visit Care Team Role Provider Type Laverne Sung NP Primary Care Provider NURSE PRACTITIONER Kiran Campo MD Emergency Provider [facility] STAFF PHYSICIAN Kiran Vargas Admit Provider [facility] STAFF PHYSICIAN Attending Provider Discharge Potential Discharge Needs: PCP F/U Appt Anticipated Barriers to Discharge: Medical Status Patient/Family Education Needs: Review discharge instructions, discuss Ask Me Three Transportation: Other (to be determined) Plan: Anticipate Mohan will be discharged home with a resumption of home health services for RN, PT and OT. She will follow up with her community providers and plan of care and transport with family. Mohan has evidence of an NSTEMI but has no chest pain. If that develops she may need to be transferred for a cath. CM will follow and continue to assess for discharge needs. Social Determinants of Health Screening Will the Patient Participate in the Screening?: Unable to obtain [facility] All Active Problems (Updated 05/31/24 @ 11:04 by Kiran Vargas) Pyuria (Acute) Discharge planning issues (Acute) Non-ST elevation (NSTEMI) myocardial infarction (Acute) Acute hyperkalemia (Acute) Acute heart failure with preserved ejection fraction (HFpEF) (Acute) Acute on chronic respiratory failure with hypoxia and hypercapnia (Acute) Acute hypercapnic respiratory failure (Acute) Insulin dependent type 2 diabetes mellitus (Acute) History of frostbite (Acute) Nerve pain (Acute) Macular degeneration of both eyes (Acute) Diabetic peripheral neuropathy (Acute) ACP (advance care planning) (Acute) Right hand paresthesia (Acute) Palliative care patient (Acute) Ureteral stone (Acute ~11/2022) Nephrostomy tube Right thyroid nodule (Acute ~11/2022) Impaired instrumental activities of daily living (Acute) Deficit in activities of daily living (ADL) (Acute) Hyperuricemia (Acute) Gout (Chronic) 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) Respiratory failure with hypoxia and hypercapnia (Chronic) Chronic O2 CHF (congestive heart failure) (Acute 02/23/14) Preserved EF (10/2020 & 08/2021 ECHO) Obstructive sleep apnea (Chronic 02/23/14) 2022: Trilogy; Sleep Med Referral, 04/17/2019-->Very severe YARELY; CPAP ([facility]) with continuous O2, new Panda C-Pap 01/2021 Type II diabetes mellitus (Chronic) Hypertension (Chronic) Hyperlipidemia (Chronic) Atrial fibrillation (Chronic) Apixaban Anemia (Chronic) Pulmonary hypertension (Chronic) Dependence on supplemental oxygen (Chronic) YARELY + Pulm HTN Chronic low back pain (Chronic 07/24/15) CT-lumbar spine 2019-- Severe multilevel degenerative changes in the lumbar spine resulting in neural foraminal and central spinal canal stenosis. Chronic anticoagulation (Chronic) AF--Apixaban Risk for falls (Chronic) Sedentary lifestyle (Chronic) B12 deficiency (Chronic) Start B12 injections; elevated MCV-->converted to oral 03/2023 Obesity hypoventilation syndrome (Chronic) Obesity + Severe YARELY + Chronic Hypercapnia Dependent on walker for ambulation (Chronic) Hypomagnesemia (Acute ~07/2021) Mild mitral valve regurgitation (Acute ~08/2021) ECHO Trace tricuspid valve regurgitation (Acute ~08/2021) ECHO Medical History Bradycardia Closed stable burst fracture of ninth thoracic vertebra [facility] [place] [facility]-[place]/01/23 Diverticulosis Knee pain, left Pressure sore on buttocks Trigger finger, right middle finger Injection: 05/04/2022 Right carpal tunnel syndrome Lipoma Restrictive lung disease (~03/2014) PFTs validated 04/04/2014-->see scanned docs Gout attack (~10/2020) R podagra, first attack 10/2020-->treated with colchine, effective Sciatica of right side without back pain RX Medrol Dietary counseling reviewed sodium levels in her food, how to count mg, goal of 1500 mg daily due to CHF Renal calculi Non obstructive per CT Peptic ulcer of duodenum [facility] [place] upper endoscopy; RX Carafate Female hirsutism Carpal tunnel syndrome, bilateral (12/17/16) Lipoma of arm Heme + stool [facility] [place] Endoscopy Peptic Duodenitis (pathology report); repeat hemoccults NEG 11/2019 Folate deficiency Low 12/2018; resolved 05/2019 labs; discontinued 02/05/2020 Iron deficiency EGD 05/23/19 [place] [facility] [place]; discont supp iron & vit c 02/05/2020; Hgb stable and iron constipating; she will obtain dietarily YARELY (obstructive sleep apnea) Spinal stenosis, lumbar HTN (hypertension) Insulin dependent diabetes mellitus Edentulous H/O rotator cuff tear H/O fracture of nose h/o elbow fx Adult body mass index 50.0-59.9 Surgical History History of total knee arthroplasty bilateral History of total abdominal hysterectomy and bilateral salpingo-oophorectomy (~02/1999) History of shoulder surgery Right shoulder repair - 2004 History of carpal tunnel repair Left- 1998 Right- 2017 Colonoscopy - MAC (08/14/16) Biopsy, Temporal Artery (01/18/15) DR.C YOUNG History of total bilateral knee replacement Family History Mother Heart disease Father Heart disease Lung cancer Brother Heart disease AAA (abdominal aortic aneurysm, ruptured) Brother Obesity Son No problems noted. Daughter Stillborn, abnormal Daughter No problems noted. 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 Pets and animals: Yes Pets and animals: cat(s) Sexually active: No Do you think of yourself as: straight/heterosexual Current gender identity: female What is your relationship status?: How often do you talk on the phone with friends or family?: once per week How often do you get together with friends or relatives?: once per week Panel score (0-1 are the most socially isolated patients): 0 What type of physical activity do you participate in: none and sedentary lifestyle Special jakob needs: No Agree to transfusion: Yes Seatbelt use: always In current or past relationships, have you been: made to feel afraid Do you feel safe at home: Yes Do you feel safe in your relationship?: Yes Additional Social history: lives with son Ricco Readmission Within the Past 30 Days Yes or No: Yes Date of First Admission Date of 1st Admission: 05/22/24 Date of this Admission Date of Admission: 05/30/24 This admission was: Through ED Office Visit Since 1st Admission Have you seen your PCP in the office since discharge?: No Date of PCP Appointment: 06/01/24 was scheduled for home visit Had an appointment Been Scheduled?: Yes I. Interview patient and/or Family Difficulty reaching your doctor or getting an office appt?: No Have you had trouble purchasing/ or taking medication?: No Have you had trouble with getting meals at home?: No Did you feel ready for discharge when you left the last time: Yes Were services received that you thought were set up on disch: Yes What services were received?: HH RN If the patient had a VNA ordered Did the patient have a VNA order?: Yes Did the VNA tell you to come to the hospital?: Yes Do you know if the VNA called your physician?: No Assessment for Readmission Summary of readmission circumstances, based upon interviews: Mohan was discharged 6 days prior to an admission for respiratory failure. She did well in the hospital and was discharged back home with new home health services. Mohan has COPD, CHF, CKD, IDDM and now, has an NSTEMI. She had an increase in her oxygen requirement again and continues to require Bipap with O2 saturation levels in high 70s and 80s. Anticipated HH Services Anticipated HH Services at Discharge [facility] OT, PT and RN Anticipated Date of Discharge: 06/04/24. Following Provider: Kiran Vargas MD.
[2024-05-31 08:44] LABS: BE (Venous) 11 mmol/L (-2-3); HCO3 (Venous) 37 mmol/L (23-28); HCT 30.8 % (36.0-46.0); MCH 30.7 pg (27.0-33.0); MCHC 29.2 % (32.0-36.0); MCV 105 fL (80-95); O2 Sat (Venous) 92 %; Platelet Count 181 10^3/uL (130-400); RBC 2.93 10^6/uL (3.93-5.22); RDW 19.8 % (11.7-14.6); RDW-SD 76.2 fL; TCO2 (Venous) 36 mmol/L (24-29); WBC 7.68 10^3/uL (4.4-10.8); pO2 (Venous) 66 mmHg
[2024-05-31 08:46] LABS: pCO2 (Venous) 76 mmHg (41-51)
[2024-05-31 09:13] LABS: Anion Gap 4.1 mmol/L (3-11); CO2 37.9 mmol/L (21.0-32.0); CREATININE 3.1 mg/dL (0.55-1.02); Calcium 9.6 mg/dL (8.5-10.1); Chloride 102 mmol/L (98-107); Estimated GFR 14.93 (mL/min/1.73m2); Glucose 88 mg/dL (74-106); Potassium 4.8 mmol/L (3.5-5.1); Sodium 144 mmol/L (136-145)
[2024-05-31 09:17] LABS: BUN 82 mg/dL (7-18); Troponin I 951 ng/L (<or=51)
--- NOTE | 2024-05-31 10:25 | PCNE_ITS ---
Date of service: 05/31/24 Time of Service: 09:50 History of Present Illness Narrative: Ms. Preston is a 78 y/o F currently hospitalized at [facility] in ICU 2/2 acute on chronic resp failure w/acute CHF exacerbation and NSTEMI; PMHx sig for chronic resp failure w/hypercapnea, CKD (stage4), YARELY, A fib, HTN, HLD, DM, obesity, gout Hospital Course: presented to ED on 05/30 w/worsening SOB; work up in ED w/type II NSTEMI and acute CHF exacerbation; consult w/ cardiology - continue diuresis, ASA and heparin drip, if worsening/CP consider acute cath; admitted for ongoing management, also considered acute on chronic hypoxemia/hypercapnia. - previously hospitalized from 05/22- w/acute on chronic resp failure; Home for 6 days, felt was largely at baseline when returned home, was able to function within her normal limits, including transfers to bedside commode. today she feels like a bunch of bull crap, does not feel good, very tired, uncomfortable, wanting to go back on BiPAP. pressure sore on RLE is uncomfortable, would like to be repositioned, has barrier cream on currently - urinating is hurting, especially with all the diuretics; urine culture pending, she wonders if she has a UTI - feet are burning, had started gabapentin topical cream w/podiatry, TID-QID w/some good effect; per review of podiatry note, could consider systemic gabapentin; She wants to feel better before considers discharge, feels maybe discharged too soon last time, though admits she wanted to go home then, would prefer to be transferred to MedSur floor for a day prior to dischare once stable in ICU. she wants to be discharged home, no SNF/NH, feels her and son Abdias can navigate at home if she returns to her previous baseline. aware she won't be back to where she was a year or even 6 mos ago. She continues to want everything done to save her life, including heart cath, transfer to tertiary facility. - too tired to discuss further, really wants BiPAP on Assessment and Plan Assessment and plan (1) Non-ST elevation (NSTEMI) myocardial infarction: Status: Acute Assessment and plan: triponins a down trending, slowly, remain elevated - Cardio consult, continue heparin drip thorugh 06/01, then return to [facility]; continue diuresis - would want transfer and treat if CP or need for acute cath presents (2) Acute heart failure with preserved ejection fraction (HFpEF): Status: Acute Assessment and plan: diuresis - bumetanide 1mg BID I/Os, marino placed for increased urination and decreased function BNP high, chronically (3) Acute on chronic respiratory failure with hypoxia and hypercapnia: Status: Acute Assessment and plan: continue BIPAP/NIV, f/b RT CO2 remains high (4) Nerve pain: Status: Acute Assessment and plan: previously started on outpatient gabapentin cream, per pt report, w/good effect would like to restart this consider systemic gabapentin if topical unavailable, pharmacy concerns w/delayed time to effect during acute hospitalization called [facility] and left VM to bring in topical cream, will start there (5) Impaired instrumental activities of daily living: Status: Acute Assessment and plan: [facility] provides all IADL care currently previously connected w/[facility] - [facility] called [facility] morillo MORRO to coordinate directly w/Mohan/Abdias - pending [facility] approval/updates (6) Deficit in activities of daily living (ADL): Status: Acute Assessment and plan: waxes and wanes on dependency - does rely on Abdias for assistance limited mobility, commode at bedside (7) Risk for falls: Status: Chronic Assessment and plan: limited mobility at baseline recommend PT consult prior to discharge, previously enrolled in PT, would recommend on discharge resumption of services (8) Discharge planning issues: Status: Acute Assessment and plan: Mohan was d/c'd straight from ICU on last admission, she would prefer one day in [facility] to confirm stability prior to discharge this admission - she is an adamant no NH/SNF, would prefer to return home w/supports from [facility], if she is at her baseline; would benefit from more supports however financially cannot afford, previously connected w/[facility] for [facility] enrollment (9) ACP (advance care planning): Status: Acute Assessment and plan: reviewed current care plan, concerns w/heart strain, COPD/CHF exacerbations w/fluid overload; okay w/ongoing diuresis and heparin drip, okay w/Marino to avoid incontinence/mobility concerns; would want transfer if escalation of care required, would want heart cath or any other invasive interventions to sustain life at this time reviewed how she will not return to previous function/baseline from a year or even 6mos ago, establishing new baseline. need for going slow and optimizing management of all chronic conditions she does not feel well today, much worse than last time; would prefer for slower discharge, transferred from ICU to CO prior to discharge; this feels reasonable, chema given her quick return to hospital post last discharge from ICU (10) Palliative care patient: Status: Acute Assessment and plan: PC will continue to follow Mohan in the community, HV previously scheduled - if appropriate or acute changes may be seen by inpt PC on Wednesday, pending acuity Review of Systems Narrative: as per HPI PFSH All Active Problems (Updated 05/31/24 @ 11:04 by Kiran Vargas) Pyuria (Acute) Discharge planning issues (Acute) Non-ST elevation (NSTEMI) myocardial infarction (Acute) Acute hyperkalemia (Acute) Acute heart failure with preserved ejection fraction (HFpEF) (Acute) Acute on chronic respiratory failure with hypoxia and hypercapnia (Acute) Acute hypercapnic respiratory failure (Acute) Insulin dependent type 2 diabetes mellitus (Acute) History of frostbite (Acute) Nerve pain (Acute) Macular degeneration of both eyes (Acute) Diabetic peripheral neuropathy (Acute) ACP (advance care planning) (Acute) Right hand paresthesia (Acute) Palliative care patient (Acute) Ureteral stone (Acute ~11/2022) Nephrostomy tube Right thyroid nodule (Acute ~11/2022) Impaired instrumental activities of daily living (Acute) Deficit in activities of daily living (ADL) (Acute) Hyperuricemia (Acute) Gout (Chronic) 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) Respiratory failure with hypoxia and hypercapnia (Chronic) Chronic O2 CHF (congestive heart failure) (Acute 02/23/14) Preserved EF (10/2020 & 08/2021 ECHO) Obstructive sleep apnea (Chronic 02/23/14) 2022: Trilogy; Sleep Med Referral, 04/17/2019-->Very severe YARELY; CPAP ([facility]) with continuous O2, new Panda C-Pap 01/2021 Type II diabetes mellitus (Chronic) Hypertension (Chronic) Hyperlipidemia (Chronic) Atrial fibrillation (Chronic) Apixaban Anemia (Chronic) Pulmonary hypertension (Chronic) Dependence on supplemental oxygen (Chronic) YARELY + Pulm HTN Chronic low back pain (Chronic 07/24/15) CT-lumbar spine 2019-- Severe multilevel degenerative changes in the lumbar spine resulting in neural foraminal and central spinal canal stenosis. Chronic anticoagulation (Chronic) AF--Apixaban Risk for falls (Chronic) Sedentary lifestyle (Chronic) B12 deficiency (Chronic) Start B12 injections; elevated MCV-->converted to oral 03/2023 Obesity hypoventilation syndrome (Chronic) Obesity + Severe YARELY + Chronic Hypercapnia Dependent on walker for ambulation (Chronic) Hypomagnesemia (Acute ~07/2021) Mild mitral valve regurgitation (Acute ~08/2021) ECHO Trace tricuspid valve regurgitation (Acute ~08/2021) ECHO Medical History Bradycardia Closed stable burst fracture of ninth thoracic vertebra [facility] [place] [place] Pain & Spine-03/01/23 Diverticulosis Knee pain, left Pressure sore on buttocks Trigger finger, right middle finger Injection: 05/04/2022 Right carpal tunnel syndrome Lipoma Restrictive lung disease (~03/2014) PFTs validated 04/04/2014-->see scanned docs Gout attack (~10/2020) R podagra, first attack 10/2020-->treated with colchine, effective Sciatica of right side without back pain RX Medrol Dietary counseling reviewed sodium levels in her food, how to count mg, goal of 1500 mg daily due to CHF Renal calculi Non obstructive per CT Peptic ulcer of duodenum [facility] [place] [place] Path reports upper endoscopy; RX Carafate Female hirsutism Carpal tunnel syndrome, bilateral (12/17/16) Lipoma of arm Heme + stool [facility] [place] [place] Upper GI Endoscopy Peptic Duodenitis (pathology report); repeat hemoccults NEG 11/2019 Folate deficiency Low 12/2018; resolved 05/2019 labs; discontinued 02/05/2020 Iron deficiency EGD 05/23/19 at [facility] [place] [place]; discont supp iron & vit c 02/05/2020; Hgb stable and iron constipating; she will obtain dietarily YARELY (obstructive sleep apnea) Spinal stenosis, lumbar HTN (hypertension) Insulin dependent diabetes mellitus Edentulous H/O rotator cuff tear H/O fracture of nose h/o elbow fx Adult body mass index 50.0-59.9 Surgical History History of total knee arthroplasty bilateral History of total abdominal hysterectomy and bilateral salpingo-oophorectomy (~02/1999) History of shoulder surgery Right shoulder repair - 2004 History of carpal tunnel repair Left- 1998 Right- 2018 Colonoscopy - MAC (08/14/16) Biopsy, Temporal Artery (01/18/15) DR.C YOUNG History of total bilateral knee replacement Family History Mother Heart disease Father Heart disease Lung cancer Brother Heart disease AAA (abdominal aortic aneurysm, ruptured) Brother Obesity Son No problems noted. Daughter Stillborn, abnormal Daughter No problems noted. 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 Pets and animals: Yes Pets and animals: cat(s) Sexually active: No Do you think of yourself as: straight/heterosexual Current gender identity: female What is your relationship status?: How often do you talk on the phone with friends or family?: once per week How often do you get together with friends or relatives?: once per week Panel score (0-1 are the most socially isolated patients): 0 What type of physical activity do you participate in: none and sedentary lifestyle Special jakob needs: No Agree to transfusion: Yes Seatbelt use: always In current or past relationships, have you been: made to feel afraid Do you feel safe at home: Yes Do you feel safe in your relationship?: Yes Additional Social history: lives with son Ricco Exam Narrative Exam Narrative: General: older adult female, lying in ICU bed, eyes closed intermittent, fatigued HEENT: hearing grossly WNL; normocephalic, atraumatic Resp: even and unlabored w/HF NC, speaks 1-3 full sentences w/o SOB, more requires recover; O2 levels 87-92%; no audible wheeze Psych: MS WNL, speech/movement WNL, fatigued, cooperative; thought process loose association, impoverished; insight/judgment limited Results Last Vital Signs Temp 98.1 F 05/31/24 05:00 Pulse 78 05/31/24 08:58 Resp 17 05/31/24 08:02 BP 107/49 L 05/31/24 08:02 Pulse Ox 89 L 05/31/24 08:58 Labs 05/31/24 08:35 05/31/24 08:35 Labs: Laboratory Results - last 24 hr 05/30/24 05/30/24 05/30/24 13:55 13:58 14:05 WBC 7.51 RBC 3.11 L Hgb 9.6 L Hct 33.1 L MCV 106 H MCH 30.9 MCHC 29.0 L RDW 19.9 H Plt Count 187 MPV 10.8 Immature Gran % 0.4 Neutrophils % 74.9 Lymphocytes % 12.4 Monocytes % 7.9 Eosinophils % 3.9 Basophils % 0.5 Nucleated RBC % 0.3 Absolute Neutrophils 5.63 Absolute Lymphocytes 0.93 L Absolute Monocytes 0.59 Absolute Eosinophils 0.29 Absolute Basophils 0.04 RBC Morphology See Below Macrocytosis 2+ APTT ABG Sample Site Right Radial ABG pH 7.29 L ABG pCO2 76 H* ABG pO2 52 L ABG HCO3 36 H ABG Total CO2 35 H ABG O2 Saturation 84 L ABG Base Excess 10 H VBG pH 7.29 L VBG pCO2 80 H* VBG pO2 24 VBG HCO3 38 H VBG Total CO2 37 H VBG O2 Saturation 37 VBG Base Excess 12 H Oxygen Liter Flow 6 FiO2 Sodium 140 Potassium 5.6 H Chloride 100 Carbon Dioxide 38.7 H Anion Gap 1.3 L BUN 83 H* Creatinine 3.2 H Est GFR (CKD-EPI 2020) 14.37 Glucose 207 H Hemoglobin A1c Calcium 9.7 Phosphorus Troponin I 1089 H* NT-Pro-B Natriuret Pep 9863 H Urine Color Urine Clarity Urine pH Ur Specific [place] Urine Protein Urine Ketones Urine Blood Urine Nitrite Urine Bilirubin Urine Urobilinogen Ur Leukocyte Esterase Urine RBC Urine WBC Ur Epithelial Cells Urine Crystals Urine Bacteria Urine Casts Urine Mucus Ur Culture Indicated? Urine Glucose COVID-19 Source SARS-CoV-2 (PCR) Influenza Type A (PCR) Influenza Type B (PCR) RSV (PCR) Add-On Test Request DONE 05/30/24 05/30/24 05/30/24 14:52 15:29 16:55 WBC RBC Hgb Hct MCV MCH MCHC RDW Plt Count MPV Immature Gran % Neutrophils % Lymphocytes % Monocytes % Eosinophils % Basophils % Nucleated RBC % Absolute Neutrophils Absolute Lymphocytes Absolute Monocytes Absolute Eosinophils Absolute Basophils RBC Morphology Macrocytosis APTT ABG Sample Site ABG pH ABG pCO2 ABG pO2 ABG HCO3 ABG Total CO2 ABG O2 Saturation ABG Base Excess VBG pH VBG pCO2 VBG pO2 VBG HCO3 VBG Total CO2 VBG O2 Saturation VBG Base Excess Oxygen Liter Flow FiO2 Sodium Potassium Chloride Carbon Dioxide Anion Gap BUN Creatinine Est GFR (CKD-EPI 2020) Glucose Hemoglobin A1c Calcium Phosphorus Troponin I 984 H* 968 H* NT-Pro-B Natriuret Pep Urine Color Yellow Urine Clarity Cloudy Urine pH 5.5 Ur Specific [place] 1.020 Urine Protein 100 H Urine Ketones Negative Urine Blood Large H Urine Nitrite Negative Urine Bilirubin Negative Urine Urobilinogen 0.2 Ur Leukocyte Esterase Large H Urine RBC >50 H Urine WBC >50 H Ur Epithelial Cells Negative Urine Crystals Negative Urine Bacteria Negative Urine Casts Negative Urine Mucus Negative Ur Culture Indicated? Yes Urine Glucose 250 H COVID-19 Source SARS-CoV-2 (PCR) Influenza Type A (PCR) Influenza Type B (PCR) RSV (PCR) Add-On Test Request 05/30/24 05/30/24 05/30/24 17:59 18:00 19:09 WBC RBC Hgb Hct MCV MCH MCHC RDW Plt Count MPV Immature Gran % Neutrophils % Lymphocytes % Monocytes % Eosinophils % Basophils % Nucleated RBC % Absolute Neutrophils Absolute Lymphocytes Absolute Monocytes Absolute Eosinophils Absolute Basophils RBC Morphology Macrocytosis APTT ABG Sample Site Cancelled ABG pH Cancelled ABG pCO2 Cancelled ABG pO2 Cancelled ABG HCO3 Cancelled ABG Total CO2 Cancelled ABG O2 Saturation Cancelled ABG Base Excess Cancelled VBG pH 7.32 VBG pCO2 74 H* VBG pO2 24 VBG HCO3 38 H VBG Total CO2 37 H VBG O2 Saturation 37 VBG Base Excess 12 H Oxygen Liter Flow Cancelled FiO2 Cancelled Sodium Potassium 6.2 H* Chloride Carbon Dioxide Anion Gap BUN Creatinine Est GFR (CKD-EPI 2020) Glucose Hemoglobin A1c Calcium Phosphorus Troponin I NT-Pro-B Natriuret Pep Urine Color Urine Clarity Urine pH Ur Specific [place] Urine Protein Urine Ketones Urine Blood Urine Nitrite Urine Bilirubin Urine Urobilinogen Ur Leukocyte Esterase Urine RBC Urine WBC Ur Epithelial Cells Urine Crystals Urine Bacteria Urine Casts Urine Mucus Ur Culture Indicated? Urine Glucose COVID-19 Source Nasopharynx SARS-CoV-2 (PCR) Negative Influenza Type A (PCR) Negative Influenza Type B (PCR) Negative RSV (PCR) Negative Add-On Test Request 05/31/24 05/31/24 03:00 08:35 WBC 7.68 RBC 2.93 L Hgb 9.0 L Hct 30.8 L MCV 105 H MCH 30.7 MCHC 29.2 L RDW 19.8 H Plt Count 181 MPV 11.0 Immature Gran % Neutrophils % Lymphocytes % Monocytes % Eosinophils % Basophils % Nucleated RBC % Absolute Neutrophils Absolute Lymphocytes Absolute Monocytes Absolute Eosinophils Absolute Basophils RBC Morphology Macrocytosis APTT 96.0 H* ABG Sample Site ABG pH ABG pCO2 ABG pO2 ABG HCO3 ABG Total CO2 ABG O2 Saturation ABG Base Excess VBG pH 7.30 L VBG pCO2 76 H* VBG pO2 66 VBG HCO3 37 H VBG Total CO2 36 H VBG O2 Saturation 92 VBG Base Excess 11 H Oxygen Liter Flow FiO2 Sodium 144 Potassium 4.8 D Chloride 102 Carbon Dioxide 37.9 H Anion Gap 4.1 BUN 82 H* Creatinine 3.1 H Est GFR (CKD-EPI 2020) 14.93 Glucose 88 Hemoglobin A1c 7.0 H Calcium 9.6 Phosphorus 6.0 H Troponin I 951 H* NT-Pro-B Natriuret Pep Urine Color Urine Clarity Urine pH Ur Specific [place] Urine Protein Urine Ketones Urine Blood Urine Nitrite Urine Bilirubin Urine Urobilinogen Ur Leukocyte Esterase Urine RBC Urine WBC Ur Epithelial Cells Urine Crystals Urine Bacteria Urine Casts Urine Mucus Ur Culture Indicated? Urine Glucose COVID-19 Source SARS-CoV-2 (PCR) Influenza Type A (PCR) Influenza Type B (PCR) RSV (PCR) Add-On Test Request Time Spent Time Spent with Patient Time Spent(min): 60
--- NOTE | 2024-05-31 10:28 | W.PM.PROGNOT ---
Date of Service Date of service: 05/31/24 Time of Service: 07:20 Assessment and Plan Assessment and plan (1) Non-ST elevation (NSTEMI) myocardial infarction: Status: Acute Assessment and plan: Significant troponin increase with acute worsening of shortness of breath on admission c/w ACS. EKG reassuring. Troponins high continue to trend down slowly. Case reviewed by ED physician with Dr. House with [facility] cardiology. Recommneded heparin drip short term in case she develops chest pain. Continue this until 06/01 then back to DOAC She is also on aspirin along with her chronic high intensity statin. Recent LDL well controlled at 55. Work on diuresis (2) CHF (congestive heart failure): Status: Acute Assessment and plan: preserved LVEF, significant pulmonary HTN but nl right heart on echo 05/22 Overall picture c/w some degree of acute CHF, though exam and CXR are difficult to interpret Need strict I/Os, place mairno. Her weight was up from discharge weight, down overnight BNaP is high but chronically high On bumetanide 1mg BID. It is hard to gauge response without clear u/o. This dose is only equivalent to 20mg IV torsemide or 40mg furosemide. With her low GFR will increase dose to 2mg BID (3) Acute on chronic respiratory failure with hypoxia and hypercapnia: Status: Acute Assessment and plan: She is chronic CO2 retainer but pCO2 above expected baseline given her HC03, and she is hypoxic compared to her baseline. On BiPAP/NIV here, Maynor from [facility] knows her well and is doing additional teaching. She [facility]. Her CO2 was still high this morning, O2 okay, increase ventilation with BiPAP to blow off CO2 now. (4) Atrial fibrillation: Status: Chronic Assessment and plan: Anticoagulated, continue metoprolol for rate control, no change. (5) Insulin dependent type 2 diabetes mellitus: Status: Acute Assessment and plan: continue home insulin. A1c is 7%, goal is 7-8% given insulin use, age, comorbidities. On steroids here so we may need to increase glargine short term. consider GLP-1 intermediate designer given CAD and BMI. (6) CKD stage 4 due to type 2 diabetes mellitus: Status: Chronic Assessment and plan: Cr slightly above baseline, trending slightly down despite diuresis. Corrected calcium is high, she likely has secondary hyperPTH, sent labs to confirm, pending (7) Acute hyperkalemia: Status: Acute Assessment and plan: Intially trended up to 6.2, but normalized s/p Lokelma. We can stop this as she is also getting diuresis. (8) Anemia: Status: Chronic Assessment and plan: Chronic, a/w CKD. Near baseline. (9) Pyuria: Status: Acute Assessment and plan: recently treated. Some dysuria. Will await culture before treating Subjective Subjective Patient reports: no new complaints; denies nausea, vomiting or fever Interval history since last seen: Events: Was on home trilogy overnight, but confusion about how to set it up, back on BiPAP most of the night Urine output was unclear, some incontinence despite suction system. She feels okay this morning. No chest pain. Shortness of breath feels a little better. Hasn't been able to eat or drink a lot, but is hungry. Exam Narrative Exam Narrative: GEN: Alert and oriented x 4. No acute distress at rest. LUNGS: Course breth sounds diffusely, bibasilar rales, on BiPAP but able to speak in short sentences. CV: irregularly irregular, normal rate, with no murmurs, gallops, or rubs. ABD: active bowel sounds, soft, nontender and nondistended. EXT: no cyanosis, clubbing. Warm. 1+ kira pitting edema to shins Neuro: some resting flapping tremor of right hand, no asterixis with hands extended. No cogwheeling. PSYCH: normal mood and affect, normal thought process Objective Last Vital Signs Temp 36.7 C 05/31/24 05:00 Pulse 78 05/31/24 08:58 Resp 17 05/31/24 08:02 BP 107/49 L 05/31/24 08:02 Pulse Ox 89 L 05/31/24 08:58 Laboratory Results - last 24 hr 05/30/24 05/30/24 05/30/24 13:55 13:58 14:05 WBC 7.51 RBC 3.11 L Hgb 9.6 L Hct 33.1 L MCV 106 H MCH 30.9 MCHC 29.0 L RDW 19.9 H Plt Count 187 MPV 10.8 Immature Gran % 0.4 Neutrophils % 74.9 Lymphocytes % 12.4 Monocytes % 7.9 Eosinophils % 3.9 Basophils % 0.5 Nucleated RBC % 0.3 Absolute Neutrophils 5.63 Absolute Lymphocytes 0.93 L Absolute Monocytes 0.59 Absolute Eosinophils 0.29 Absolute Basophils 0.04 RBC Morphology See Below Macrocytosis 2+ APTT ABG Sample Site Right Radial ABG pH 7.29 L ABG pCO2 76 H* ABG pO2 52 L ABG HCO3 36 H ABG Total CO2 35 H ABG O2 Saturation 84 L ABG Base Excess 10 H VBG pH 7.29 L VBG pCO2 80 H* VBG pO2 24 VBG HCO3 38 H VBG Total CO2 37 H VBG O2 Saturation 37 VBG Base Excess 12 H Oxygen Liter Flow 6 FiO2 Sodium 140 Potassium 5.6 H Chloride 100 Carbon Dioxide 38.7 H Anion Gap 1.3 L BUN 83 H* Creatinine 3.2 H Est GFR (CKD-EPI 2020) 14.37 Glucose 207 H Hemoglobin A1c Calcium 9.7 Phosphorus Troponin I 1089 H* NT-Pro-B Natriuret Pep 9863 H Urine Color Urine Clarity Urine pH Ur Specific [place] Urine Protein Urine Ketones Urine Blood Urine Nitrite Urine Bilirubin Urine Urobilinogen Ur Leukocyte Esterase Urine RBC Urine WBC Ur Epithelial Cells Urine Crystals Urine Bacteria Urine Casts Urine Mucus Ur Culture Indicated? Urine Glucose COVID-19 Source SARS-CoV-2 (PCR) Influenza Type A (PCR) Influenza Type B (PCR) RSV (PCR) Add-On Test Request DONE 05/30/24 05/30/24 05/30/24 14:52 15:29 16:55 WBC RBC Hgb Hct MCV MCH MCHC RDW Plt Count MPV Immature Gran % Neutrophils % Lymphocytes % Monocytes % Eosinophils % Basophils % Nucleated RBC % Absolute Neutrophils Absolute Lymphocytes Absolute Monocytes Absolute Eosinophils Absolute Basophils RBC Morphology Macrocytosis APTT ABG Sample Site ABG pH ABG pCO2 ABG pO2 ABG HCO3 ABG Total CO2 ABG O2 Saturation ABG Base Excess VBG pH VBG pCO2 VBG pO2 VBG HCO3 VBG Total CO2 VBG O2 Saturation VBG Base Excess Oxygen Liter Flow FiO2 Sodium Potassium Chloride Carbon Dioxide Anion Gap BUN Creatinine Est GFR (CKD-EPI 2020) Glucose Hemoglobin A1c Calcium Phosphorus Troponin I 984 H* 968 H* NT-Pro-B Natriuret Pep Urine Color Yellow Urine Clarity Cloudy Urine pH 5.5 Ur Specific [place] 1.020 Urine Protein 100 H Urine Ketones Negative Urine Blood Large H Urine Nitrite Negative Urine Bilirubin Negative Urine Urobilinogen 0.2 Ur Leukocyte Esterase Large H Urine RBC >50 H Urine WBC >50 H Ur Epithelial Cells Negative Urine Crystals Negative Urine Bacteria Negative Urine Casts Negative Urine Mucus Negative Ur Culture Indicated? Yes Urine Glucose 250 H COVID-19 Source SARS-CoV-2 (PCR) Influenza Type A (PCR) Influenza Type B (PCR) RSV (PCR) Add-On Test Request 05/30/24 05/30/24 05/30/24 17:59 18:00 19:09 WBC RBC Hgb Hct MCV MCH MCHC RDW Plt Count MPV Immature Gran % Neutrophils % Lymphocytes % Monocytes % Eosinophils % Basophils % Nucleated RBC % Absolute Neutrophils Absolute Lymphocytes Absolute Monocytes Absolute Eosinophils Absolute Basophils RBC Morphology Macrocytosis APTT ABG Sample Site Cancelled ABG pH Cancelled ABG pCO2 Cancelled ABG pO2 Cancelled ABG HCO3 Cancelled ABG Total CO2 Cancelled ABG O2 Saturation Cancelled ABG Base Excess Cancelled VBG pH 7.32 VBG pCO2 74 H* VBG pO2 24 VBG HCO3 38 H VBG Total CO2 37 H VBG O2 Saturation 37 VBG Base Excess 12 H Oxygen Liter Flow Cancelled FiO2 Cancelled Sodium Potassium 6.2 H* Chloride Carbon Dioxide Anion Gap BUN Creatinine Est GFR (CKD-EPI 2020) Glucose Hemoglobin A1c Calcium Phosphorus Troponin I NT-Pro-B Natriuret Pep Urine Color Urine Clarity Urine pH Ur Specific [place] Urine Protein Urine Ketones Urine Blood Urine Nitrite Urine Bilirubin Urine Urobilinogen Ur Leukocyte Esterase Urine RBC Urine WBC Ur Epithelial Cells Urine Crystals Urine Bacteria Urine Casts Urine Mucus Ur Culture Indicated? Urine Glucose COVID-19 Source Nasopharynx SARS-CoV-2 (PCR) Negative Influenza Type A (PCR) Negative Influenza Type B (PCR) Negative RSV (PCR) Negative Add-On Test Request 05/31/24 05/31/24 03:00 08:35 WBC 7.68 RBC 2.93 L Hgb 9.0 L Hct 30.8 L MCV 105 H MCH 30.7 MCHC 29.2 L RDW 19.8 H Plt Count 181 MPV 11.0 Immature Gran % Neutrophils % Lymphocytes % Monocytes % Eosinophils % Basophils % Nucleated RBC % Absolute Neutrophils Absolute Lymphocytes Absolute Monocytes Absolute Eosinophils Absolute Basophils RBC Morphology Macrocytosis APTT 96.0 H* ABG Sample Site ABG pH ABG pCO2 ABG pO2 ABG HCO3 ABG Total CO2 ABG O2 Saturation ABG Base Excess VBG pH 7.30 L VBG pCO2 76 H* VBG pO2 66 VBG HCO3 37 H VBG Total CO2 36 H VBG O2 Saturation 92 VBG Base Excess 11 H Oxygen Liter Flow FiO2 Sodium 144 Potassium 4.8 D Chloride 102 Carbon Dioxide 37.9 H Anion Gap 4.1 BUN 82 H* Creatinine 3.1 H Est GFR (CKD-EPI 2020) 14.93 Glucose 88 Hemoglobin A1c 7.0 H Calcium 9.6 Phosphorus 6.0 H Troponin I 951 H* NT-Pro-B Natriuret Pep Urine Color Urine Clarity Urine pH Ur Specific [place] Urine Protein Urine Ketones Urine Blood Urine Nitrite Urine Bilirubin Urine Urobilinogen Ur Leukocyte Esterase Urine RBC Urine WBC Ur Epithelial Cells Urine Crystals Urine Bacteria Urine Casts Urine Mucus Ur Culture Indicated? Urine Glucose COVID-19 Source SARS-CoV-2 (PCR) Influenza Type A (PCR) Influenza Type B (PCR) RSV (PCR) Add-On Test Request Time Spent with Patient Time Spent with Patient: >50 minutes Time was spent: preparing to see the patient(eg.review tests), obtaining and/or reviewing separately otained hiistory, ordering medications,tests, procedures, referring, communicating with other health director day care center, indepentently interpreting results, counseling the patient and care coordination
[2024-05-31 11:15] LABS: PTT Activated 62.8 sec (20.6-30.2)
[2024-05-31] MEDS: Albuterol/Ipratropium 3 ML UPD VIAL UPD ×2 (14:26→20:27)
[2024-05-31 14:58] LABS: Bilirubin Negative (Negative); Blood Large (Negative); Clarity Cloudy (Clear); Glucose Negative (Negative); Ketones Negative (Negative); Leukocyte Esterase Large (Negative); Nitrite Negative (Negative); Urobilinogen 0.2 mg/dL (Up to 0.2); pH 5.5 (5-8)
[2024-05-31 15:06] LABS: C & S Indicated? Yes; WBC >50 HPF (0-5)
[2024-05-31 15:06] LABS: BE (Venous) 11 mmol/L (-2-3); HCO3 (Venous) 37 mmol/L (23-28); O2 Sat (Venous) 80 %; TCO2 (Venous) 36 mmol/L (24-29); pH (Venous) 7.31 (7.31-7.41); pO2 (Venous) 46 mmHg
[2024-05-31 15:10] LABS: pCO2 (Venous) 75 mmHg (41-51)
--- NOTE | 2024-05-31 15:44 | W.POCUS ---
Pocus Exam Limited Cardiac Exam DATE OF EXAM: 05/31/24 TIME OF EXAM: 15:44 PROVIDER THAT PERFORMED THE STUDY: Dima Montenegro IS THIS A REPEAT EXAM DURING THIS ENCOUNTER: Yes, Different provider REASON FOR EXAM: Hypoxia VISUALIZED STRUCTURES: four chambers, left atrium, left ventricle, LVOT, right atrium, right ventricle, aortic valve, mitral valve, Interventricular septum and IVC VIEW OBTAINED: Apical 4-Chamber, Parasternal long-axis, Parasternal short-axis and Subxiphoid PERTINENT FINDINGS/IMPRESSION: Plethoric IVC DIFFERENTIAL DIAGNOSES: diastolic dysfunction. Good systolic function Exam complete Limited Thoracic Lung Exam DATE OF EXAM: 05/31/24 TIME OF EXAM: 15:46 PROVIDER THAT PERFORMED THE STUDY: Dima Montenegro IS THIS A REPEAT EXAM DURING THIS ENCOUNTER: No REASON FOR EXAM: Hypoxia VISUALIZED STRUCTURES: right anterior, left anterior, right lateral, left lateral and right posterior PERTINENT FINDINGS/IMPRESSION: B-lines/left side and B-lines/right side DIFFERENTIAL DIAGNOSES: CHF, interstitial pneumonitis Exam complete
[2024-05-31] MEDS: Bumetanide 1 MG/4 ML VIAL 2 MG IVP (15:49)
[2024-05-31] MEDS: Insulin Aspart 300 UNITS/3 ML PEN SC (16:46)
[2024-05-31 17:04] LABS: Ionized Calcium 1.14 mmol/L (1.14-1.35)
[2024-05-31 17:49] LABS: Parathyroid Hormone,Intact 32.2 pg/mL (19.0-88.0)
[2024-05-31 18:12] LABS: PTT Activated 55.2 sec (20.6-30.2)
[2024-05-31] MEDS: Heparin in 0.45% NaCl 25,000 UNIT/250 ML BAG 8 UNIT IVINF (19:06)
[2024-05-31] MEDS: Atorvastatin 40 MG TAB 80 MG PO (19:07)
[2024-05-31] MEDS: Insulin Glargine 300 UNITS/3 ML PEN 14 UNITS SC (19:35)
[2024-06-01] VITALS (36 sets, daily range): BP systolic 99–119; BP diastolic 53–98; PULSE 87–115; RESP 5–36; TEMP 31–37.9; O2SAT 84–95
[2024-06-01] MEDS: Albuterol/Ipratropium 3 ML UPD VIAL UPD ×3 (04:50→20:21)
[2024-06-01 07:28] LABS: Anion Gap 3.1 mmol/L (3-11); CO2 37.9 mmol/L (21.0-32.0); CREATININE 3.3 mg/dL (0.55-1.02); Calcium 9.5 mg/dL (8.5-10.1); Chloride 104 mmol/L (98-107); Estimated GFR 13.85 (mL/min/1.73m2); Glucose 128 mg/dL (74-106); Potassium 5.1 mmol/L (3.5-5.1); Sodium 145 mmol/L (136-145)
[2024-06-01 07:31] LABS: BUN 87 mg/dL (7-18)
[2024-06-01] MEDS: amLODIPine 5 MG TAB PO (08:09)
[2024-06-01] MEDS: Magnesium Oxide 400 MG TAB PO (08:09)
[2024-06-01 08:10] LABS: PTT Activated 48.8 sec (20.6-30.2)
[2024-06-01] MEDS: Preservision CAPSULE 1 CAP PO (08:10)
[2024-06-01] MEDS: Vitamins B Comp w/C TAB 1 TAB PO (08:10)
[2024-06-01] MEDS: Allopurinol 100 MG TAB PO (08:10)
[2024-06-01] MEDS: Pantoprazole 40 MG TABCR PO (08:10)
[2024-06-01] MEDS: Insulin Aspart 300 UNITS/3 ML PEN SC ×3 (08:14→17:41)
--- NOTE | 2024-06-01 09:45 | PDOC.CMPRO ---
Date of service: 06/01/24 Time of Service: 09:45 Care Management Progress Note Progress Note Text Progress Note Text: Mohan was lying in bed in the ICU wearing Bipap when CM met with her. When asked how she was doing, Mohan responded not good. Even with the Bipap, her oxygen saturation remained in the mid to upper 80s all day. Mohan has a heparin drip running as her troponins remain elevated. These will be repeated tomorrow. CM kept the visit short as Mohan was clearly uncomfortable and needed rest. Discharge Potential Discharge Needs: PCP F/U Appt Anticipated Barriers to Discharge: None Identified Patient/Family Education Needs: Review discharge instructions, discuss Ask Me Three Transportation: EMS Plan: Anticipate Mohan will be discharged home with a resumption of services she receives through [facility]. She will follow up with her community providers and plan of care and transport with her son. CM will follow and continue to assess for discharge needs. Social Determinants of Health Screening Will the Patient Participate in the Screening?: Unable to obtain
[2024-06-01] MEDS: Bumetanide 1 MG/4 ML VIAL 2 MG IVP ×2 (09:47→17:32)
[2024-06-01] MEDS: levoFLOXacin 500 MG, levoFLOXacin 250 MG 750 MG PO (12:06)
--- NOTE | 2024-06-01 14:45 | CHAPLAIN ---
Mohan and I know each other from previous admissions. She was in bed, wearing a BiPap machine when I visited. I didn't stay long as it's more difficult to have a conversation with BiPap, but I will continue to visit.
--- NOTE | 2024-06-01 15:02 | PGE_ITS ---
Date of Service Date of service: 06/01/24 Time of Service: 15:02 Assessment and Plan Assessment and plan (1) Non-ST elevation (NSTEMI) myocardial infarction: Status: Acute Assessment and plan: Significant troponin increase with acute worsening of shortness of breath on admission c/w ACS. EKG reassuring. Troponins high continue to trend down slowly. Case reviewed by ED physician with Dr. House with [facility] cardiology. Recommneded heparin drip short term in case she develops chest pain. Continue this until 06/01 then back to DOAC She is also on aspirin along with her chronic high intensity statin. Recent LDL well controlled at 55. Work on diuresis 06/01/24 Notes reviewed, will keep on heparin until tomorrow, recheck troponins, and if they continue to decrease will switch to DOAC (2) CHF (congestive heart failure): Status: Acute Assessment and plan: preserved LVEF, significant pulmonary HTN but nl right heart on echo 05/22 Overall picture c/w some degree of acute CHF, though exam and CXR are difficult to interpret Need strict I/Os, place marino. Her weight was up from discharge weight, down overnight BNaP is high but chronically high On bumetanide 1mg BID. It is hard to gauge response without clear u/o. This dose is only equivalent to 20mg IV torsemide or 40mg furosemide. With her low GFR will increase dose to 2mg BID Echo 05/23/24 Conclusion Normal left ventricular wall thickness and chamber size. Ejection fraction is 60 to 65%. Wall motion is normal Normal right ventricular size and function Both atria are severely enlarged Aortic valve is trileaflet and mildly sclerotic without stenosis or regurgitation Normal mitral valve with mild regurgitation Mild to moderate tricuspid regurgitation. There is severe pulmonary hypertension with an estimated right ventricular systolic pressure of 69 mmHg (3) Acute on chronic respiratory failure with hypoxia and hypercapnia: Status: Acute Assessment and plan: She is chronic CO2 retainer but pCO2 above expected baseline given her HC03, and she is hypoxic compared to her baseline. On BiPAP/NIV here, Maynor from [facility] knows her well and is doing additional teaching. She needs to use her trilogy more at the SNF. Her CO2 was still high this morning, O2 okay, increase ventilation with BiPAP to blow off CO2 now. (4) Atrial fibrillation: Status: Chronic Assessment and plan: Anticoagulated, continue metoprolol for rate control, no change. 06/01/24 PT usually on eliquis but currently on heparin 2/2 concerns for ACS (5) Insulin dependent type 2 diabetes mellitus: Status: Acute Assessment and plan: continue home insulin. A1c is 7%, goal is 7-8% given insulin use, age, comorbidities. On steroids here so we may need to increase glargine short term. consider GLP-1 adjunct faculty for medical terminology given CAD and BMI. (6) CKD stage 4 due to type 2 diabetes mellitus: Status: Chronic Assessment and plan: Cr slightly above baseline, trending slightly down despite diuresis. Corrected calcium is high, she likely has secondary hyperPTH, sent labs to confirm, pending 06/01/24 Pt's echo argues against pre-renal cause and pt does not have a history of post renal issues either. Will investigate if any renal usn have been placed before. Pt most likely has chronic renal disease 2/2 history of DM. Renal USN 03/11/23 IMPRESSION: Left nephrostomy tube. No visible hydronephrosis. Echogenic foci in left kidney could represent multiple stones and or air related to nephrostomy tube. Complex cystic area seen upper pole left kidney. This was not seen on prior CT. The findings could potentially be related to placement of nephrostomy tube. Follow-up recommended. Will repeat renal usn (7) Acute hyperkalemia: Status: Acute Assessment and plan: Intially trended up to 6.2, but normalized s/p Lokelma. We can stop this as she is also getting diuresis. 06/01/24 Resolved (8) Anemia: Status: Chronic Assessment and plan: Chronic, a/w CKD. Near baseline. (9) Pyuria: Status: Acute Assessment and plan: recently treated. Some dysuria. Will await culture before treating 06/01/24 Urine cultures appeared contaminated. Will start some pyridium Subjective Subjective Interval history since last seen: Pt seen and examined in her room this am. Pt was complaining of LUE pain which she attributes to her heparin drip. POC d/w pt as well as bedside nurse during ICU huddle Exam Narrative Exam Narrative: GEN: Alert and oriented x 4. No acute distress at rest. LUNGS: Course breth sounds diffusely, bibasilar rales, on BiPAP but able to speak in short sentences. CV: irregularly irregular, normal rate, with no murmurs, gallops, or rubs. ABD: active bowel sounds, soft, nontender and nondistended. EXT: no cyanosis, clubbing. Warm. 1+ kira pitting edema to shins Neuro: some resting flapping tremor of right hand, no asterixis with hands extended. No cogwheeling. PSYCH: normal mood and affect, normal thought process Objective Last Vital Signs Temp 37.4 C 06/01/24 12:10 Pulse 96 H 06/01/24 14:31 Resp 19 06/01/24 14:31 BP 99/88 L 06/01/24 08:01 Pulse Ox 88 L 06/01/24 14:31 Laboratory Results - last 24 hr 05/31/24 05/31/24 05/31/24 03:00 14:10 14:58 APTT VBG pH 7.31 VBG pCO2 75 H* VBG pO2 46 VBG HCO3 37 H VBG Total CO2 36 H VBG O2 Saturation 80 VBG Base Excess 11 H Sodium Potassium Chloride Carbon Dioxide Anion Gap BUN Creatinine Est GFR (CKD-EPI 2020) Glucose Calcium Ionized Calcium 1.14 PTH Intact 32.2 Urine Color Yellow Urine Clarity Cloudy Urine pH 5.5 Ur Specific [place] 1.020 Urine Protein 100 H Urine Ketones Negative Urine Blood Large H Urine Nitrite Negative Urine Bilirubin Negative Urine Urobilinogen 0.2 Ur Leukocyte Esterase Large H Urine RBC Not Applicable Urine WBC >50 H Ur Epithelial Cells Not Applicable Urine Crystals Not Applicable Urine Bacteria Not Applicable Urine Mucus Not Applicable Ur Culture Indicated? Yes Urine Glucose Negative 05/31/24 06/01/24 06/01/24 17:06 06:55 07:45 APTT 55.2 H 48.8 H VBG pH VBG pCO2 VBG pO2 VBG HCO3 VBG Total CO2 VBG O2 Saturation VBG Base Excess Sodium 145 Potassium 5.1 Chloride 104 Carbon Dioxide 37.9 H Anion Gap 3.1 BUN 87 H* Creatinine 3.3 H Est GFR (CKD-EPI 2020) 13.85 Glucose 128 H Calcium 9.5 Ionized Calcium PTH Intact Urine Color Urine Clarity Urine pH Ur Specific [place] Urine Protein Urine Ketones Urine Blood Urine Nitrite Urine Bilirubin Urine Urobilinogen Ur Leukocyte Esterase Urine RBC Urine WBC Ur Epithelial Cells Urine Crystals Urine Bacteria Urine Mucus Ur Culture Indicated? Urine Glucose Time Spent with Patient Time Spent with Patient: 35-49 minutes Time was spent: preparing to see the patient(eg.review tests), obtaining and/or reviewing separately otained hiistory, ordering medications,tests, procedures, referring, communicating with other health patient care technician, indepentently interpreting results, counseling the patient and care coordination
[2024-06-01] MEDS: Nystatin CREAM 15 GM TUBE TP ×2 (15:26→20:54)
[2024-06-01] MEDS: Normal Saline Flush 10 ML SYR IVP ×2 (17:07→20:20)
[2024-06-01 17:53] LABS: PTT Activated 90.8 sec (20.6-30.2)
[2024-06-01] MEDS: Atorvastatin 40 MG TAB 80 MG PO (20:21)
[2024-06-01] MEDS: Heparin in 0.45% NaCl 25,000 UNIT/250 ML BAG 8 UNIT IVINF (20:25)
[2024-06-01] MEDS: Insulin Glargine 300 UNITS/3 ML PEN 14 UNITS SC (20:52)
[2024-06-01 22:23] LABS: PTT Activated 59.1 sec (20.6-30.2)
[2024-06-02] VITALS (40 sets, daily range): BP systolic 82–120; BP diastolic 43–98; PULSE 79–117; RESP 3–34; TEMP 31–37.1; O2SAT 83–96
[2024-06-02 05:31] LABS: BE (Venous) 14 mmol/L (-2-3); HCO3 (Venous) 39 mmol/L (23-28); TCO2 (Venous) 37 mmol/L (24-29); pH (Venous) 7.41 (7.31-7.41); pO2 (Venous) 121 mmHg
[2024-06-02 05:34] LABS: pCO2 (Venous) 62 mmHg (41-51)
[2024-06-02 05:37] LABS: Abs Immature Grans 0.03 10^3/uL (0.0-0.06); Absolute Basophil Count 0.03 10^3/uL (0.0-0.2); Absolute Eosinophil Count 0.25 10^3/uL (0.0-0.7); Absolute Monocyte Count 0.74 10^3/uL (0.1-0.8); Basophils % 0.4 %; Eosinophils % 3.1 %; HCT 24.3 % (36.0-46.0); Immature Grans % 0.4 %; Lymphocytes % 12.6 %; MCH 30.9 pg (27.0-33.0); MCHC 29.6 % (32.0-36.0); MCV 104 fL (80-95); MPV 10.7 fL (8.0-11.0); Monocytes % 9.3 %; Neutrophils % 74.2 %; Platelet Count 159 10^3/uL (130-400); RBC 2.33 10^6/uL (3.93-5.22); RDW 19.5 % (11.7-14.6); RDW-SD 74.2 fL; WBC 7.95 10^3/uL (4.4-10.8)
[2024-06-02 05:45] LABS: HGB 7.2 g/dL (11.2-15.7)
[2024-06-02 05:48] LABS: ALT 10 U/L (14-59); AST 17 U/L (15-37); Albumin 2.5 g/dL (3.4-5.0); Alkaline Phosphatase 58 U/L (46-116); Anion Gap -0.8 mmol/L (3-11); Bilirubin, Total 0.7 mg/dL (0.2-1.0); CO2 39.8 mmol/L (21.0-32.0); CREATININE 3.2 mg/dL (0.55-1.02); Calcium 9.3 mg/dL (8.5-10.1); Chloride 103 mmol/L (98-107); Estimated GFR 14.37 (mL/min/1.73m2); Glucose 85 mg/dL (74-106); Potassium 4.7 mmol/L (3.5-5.1); Sodium 142 mmol/L (136-145); Total Protein 6.3 g/dL (6.4-8.2)
[2024-06-02 05:50] LABS: BUN 88 mg/dL (7-18)
[2024-06-02 06:07] LABS: HCT 25.2 % (36.0-46.0); HGB 7.5 g/dL (11.2-15.7)
[2024-06-02] MEDS: Vitamins B Comp w/C TAB 1 TAB PO (08:43)
[2024-06-02] MEDS: Magnesium Oxide 400 MG TAB PO (08:43)
[2024-06-02] MEDS: Allopurinol 100 MG TAB PO (08:44)
[2024-06-02] MEDS: amLODIPine 5 MG TAB PO (08:44)
[2024-06-02] MEDS: Nystatin CREAM 15 GM TUBE TP ×2 (08:44→13:57)
[2024-06-02] MEDS: Pantoprazole 40 MG TABCR PO (08:44)
[2024-06-02] MEDS: Preservision CAPSULE 1 CAP PO (08:44)
--- NOTE | 2024-06-02 09:24 | PDOC.CMPRO ---
Date of service: 06/02/24 Time of Service: 09:24 Care Management Progress Note Progress Note Text Progress Note Text: Mohan was sitting up in a chair when CM met with her this morning. She is still requiring high flow oxygen and Bipap to maintain her oxygen saturation in the 80s. She indicated that she was tired and not up to a long conversation. Mohan's blood pressure was a little low this afternoon and she is still tachycardic. She is receiving IV Bumex bid and has lost 4-5 Kg in the past 2 days and is diuresing well. CM will follow. Discharge Potential Discharge Needs: PCP F/U Appt Anticipated Barriers to Discharge: Medical Status Patient/Family Education Needs: Review discharge instructions, discuss Ask Me Three Plan: Anticipate Mohan will be discharged home with a resumption of services she receives through [facility]. She will follow up with her community providers and plan of care and transport with her son. CM will follow and continue to assess for discharge needs. Social Determinants of Health Screening Will the Patient Participate in the Screening?: Unable to obtain
[2024-06-02 09:29] LABS: Iron 24 ug/dL (50-170); Total Iron Binding Capacity 253 ug/dL (250-450); Transferrin Sat 9 % (15-50)
[2024-06-02 09:31] LABS: Troponin I 170 ng/L (<or=51)
[2024-06-02] MEDS: guaiFENesin/CODEINE PHOSPHATE 10 ML CUP PO (10:56)
[2024-06-02] MEDS: LORazepam 2 MG/1 ML Oral Concentrate PO (10:56)
[2024-06-02] MEDS: Bumetanide 1 MG/4 ML VIAL 2 MG IVP ×2 (10:57→13:56)
[2024-06-02] MEDS: Normal Saline Flush 10 ML SYR IVP ×2 (11:07→21:29)
[2024-06-02] MEDS: Insulin Aspart 300 UNITS/3 ML PEN SC ×2 (11:39→18:45)
--- NOTE | 2024-06-02 12:40 | DI.US_ITS ---
Exam(s) US RENAL EXAM: US RENAL CLINICAL HISTORY: worsening renal fx. TECHNIQUE: Mancia scale, color and spectral Doppler were used. COMPARISON: CT CT CHEST/ABD/PEL WO from 03/11/2023 FINDINGS: Exam is limited by patient body habitus. Right kidney: 7.7cm Echogenicity: Mildly increased Hydronephrosis: No Cyst or mass: No Nephrolithiasis: No Left kidney: 8.5cm Echogenicity: Mildly increased Hydronephrosis: No Cyst or mass: No Nephrolithiasis: No Bladder:Normal. Prevoid vol:111 cc Postvoid vol:50 cc. Unclamping of Ruiz catheter. IMPRESSION: Increased renal echogenicity, consistent with medical renal disease. Mild bilateral renal atrophy. DATA REPOSITORY:
[2024-06-02] MEDS: Benzonatate 200 MG CAP PO ×2 (13:56→21:28)
--- NOTE | 2024-06-02 17:20 | W.PM.PROGNOT ---
Date of Service Date of service: 06/02/24 Time of Service: 17:20 Assessment and Plan Assessment and plan (1) Non-ST elevation (NSTEMI) myocardial infarction: Status: Acute Assessment and plan: Significant troponin increase with acute worsening of shortness of breath on admission c/w ACS. EKG reassuring. Troponins high continue to trend down slowly. Case reviewed by ED physician with Dr. House with [facility] cardiology. Recommneded heparin drip short term in case she develops chest pain. Continue this until 06/01 then back to DOAC She is also on aspirin along with her chronic high intensity statin. Recent LDL well controlled at 55. Work on diuresis 06/01/24 Notes reviewed, will keep on heparin until tomorrow, recheck troponins, and if they continue to decrease will switch to DOAC 06/02/24 Troponin's are much improved. Will dc heparin and c/w DOAC (2) CHF (congestive heart failure): Status: Acute Assessment and plan: preserved LVEF, significant pulmonary HTN but nl right heart on echo 05/22 Overall picture c/w some degree of acute CHF, though exam and CXR are difficult to interpret Need strict I/Os, place marino. Her weight was up from discharge weight, down overnight BNaP is high but chronically high On bumetanide 1mg BID. It is hard to gauge response without clear u/o. This dose is only equivalent to 20mg IV torsemide or 40mg furosemide. With her low GFR will increase dose to 2mg BID Echo 05/23/24 Conclusion Normal left ventricular wall thickness and chamber size. Ejection fraction is 60 to 65%. Wall motion is normal Normal right ventricular size and function Both atria are severely enlarged Aortic valve is trileaflet and mildly sclerotic without stenosis or regurgitation Normal mitral valve with mild regurgitation Mild to moderate tricuspid regurgitation. There is severe pulmonary hypertension with an estimated right ventricular systolic pressure of 69 mmHg 06/02/24 PT does have a fairly robust EF. Pt does have severe pulm htn as well as moderate TR and bilateral enlarged atria (3) Acute on chronic respiratory failure with hypoxia and hypercapnia: Status: Acute Assessment and plan: She is chronic CO2 retainer but pCO2 above expected baseline given her HC03, and she is hypoxic compared to her baseline. On BiPAP/NIV here, Maynor from [facility] knows her well and is doing additional teaching. She needs to [facility] her [facility] the SNF. Her CO2 was still high this morning, O2 okay, increase ventilation with BiPAP to blow off CO2 now. 06/02/24 In reviewing notes from her Patrol Commander, pt does appear to have significant issues with non-compliance (4) Atrial fibrillation: Status: Chronic Assessment and plan: Anticoagulated, continue metoprolol for rate control, no change. 06/01/24 PT usually on eliquis but currently on heparin 2/2 concerns for ACS 06/02/24 Pt started back on eliquis (5) Insulin dependent type 2 diabetes mellitus: Status: Acute Assessment and plan: continue home insulin. A1c is 7%, goal is 7-8% given insulin use, age, comorbidities. On steroids here so we may need to increase glargine short term. consider GLP-1 residential given CAD and BMI. (6) CKD stage 4 due to type 2 diabetes mellitus: Status: Chronic Assessment and plan: Cr slightly above baseline, trending slightly down despite diuresis. Corrected calcium is high, she likely has secondary hyperPTH, sent labs to confirm, pending 06/01/24 Pt's echo argues against pre-renal cause and pt does not have a history of post renal issues either. Will investigate if any renal usn have been placed before. Pt most likely has chronic renal disease 2/2 history of DM. Renal USN 03/11/23 IMPRESSION: Left nephrostomy tube. No visible hydronephrosis. Echogenic foci in left kidney could represent multiple stones and or air related to nephrostomy tube. Complex cystic area seen upper pole left kidney. This was not seen on prior CT. The findings could potentially be related to placement of nephrostomy tube. Follow-up recommended. Will repeat renal usn (7) Acute hyperkalemia: Status: Acute Assessment and plan: Intially trended up to 6.2, but normalized s/p Lokelma. We can stop this as she is also getting diuresis. 06/01/24 Resolved (8) Anemia: Status: Chronic Assessment and plan: Chronic, a/w CKD. Near baseline. hem check stool x3 (9) Pyuria: Status: Acute Assessment and plan: recently treated. Some dysuria. Will await culture before treating 06/01/24 Urine cultures appeared contaminated. Will start some pyridium (pyridium was contraindicated, did not start) (10) Cough: Status: Acute Assessment and plan: added khalif and rosales ann Subjective Subjective Interval history since last seen: no new complaints Exam Narrative Exam Narrative: GEN: Alert and oriented x 4. No acute distress at rest. LUNGS: Course breth sounds diffusely, bibasilar rales, on BiPAP but able to speak in short sentences. CV: irregularly irregular, normal rate, with no murmurs, gallops, or rubs. ABD: active bowel sounds, soft, nontender and nondistended. EXT: no cyanosis, clubbing. Warm. 1+ kira pitting edema to shins Neuro: some resting flapping tremor of right hand, no asterixis with hands extended. No cogwheeling. PSYCH: normal mood and affect, normal thought process Objective Last Vital Signs Temp 36.7 C 06/02/24 12:39 Pulse 104 H 06/02/24 12:39 Resp 26 H 06/02/24 12:39 BP 82/54 L 06/02/24 12:39 Pulse Ox 87 L 06/02/24 12:39 Laboratory Results - last 24 hr 06/01/24 06/01/24 06/02/24 17:13 21:58 05:29 WBC 7.95 RBC 2.33 L Hgb 7.2 L Hct 24.3 L MCV 104 H MCH 30.9 MCHC 29.6 L RDW 19.5 H Plt Count 159 MPV 10.7 Immature Gran % 0.4 Neutrophils % 74.2 Lymphocytes % 12.6 Monocytes % 9.3 Eosinophils % 3.1 Basophils % 0.4 Nucleated RBC % 0.0 Absolute Neutrophils 5.90 Absolute Lymphocytes 1.00 L Absolute Monocytes 0.74 Absolute Eosinophils 0.25 Absolute Basophils 0.03 APTT 90.8 H* 59.1 H 51.0 H VBG pH 7.41 VBG pCO2 62 H* VBG pO2 121 VBG HCO3 39 H VBG Total CO2 37 H VBG O2 Saturation VBG Base Excess 14 H Sodium 142 Potassium 4.7 Chloride 103 Carbon Dioxide 39.8 H Anion Gap -0.8 L BUN 88 H* Creatinine 3.2 H Est GFR (CKD-EPI 2020) 14.37 Glucose 85 Calcium 9.3 Iron TIBC Transferrin % Sat Total Bilirubin 0.7 AST 17 ALT 10 L Alkaline Phosphatase 58 Troponin I Total Protein 6.3 L Albumin 2.5 L 06/02/24 06/02/24 05:53 08:51 WBC RBC Hgb 7.5 L Hct 25.2 L MCV MCH MCHC RDW Plt Count MPV Immature Gran % Neutrophils % Lymphocytes % Monocytes % Eosinophils % Basophils % Nucleated RBC % Absolute Neutrophils Absolute Lymphocytes Absolute Monocytes Absolute Eosinophils Absolute Basophils APTT VBG pH VBG pCO2 VBG pO2 VBG HCO3 VBG Total CO2 VBG O2 Saturation VBG Base Excess Sodium Potassium Chloride Carbon Dioxide Anion Gap BUN Creatinine Est GFR (CKD-EPI 2020) Glucose Calcium Iron 24 L TIBC 253 Transferrin % Sat 9 L Total Bilirubin AST ALT Alkaline Phosphatase Troponin I 170 H* Total Protein Albumin Time Spent with Patient Time Spent with Patient: 25-34 minutes Time was spent: preparing to see the patient(eg.review tests), obtaining and/or reviewing separately otained hiistory, ordering medications,tests, procedures, referring, communicating with other health career services assistant, indepentently interpreting results, counseling the patient and care coordination
[2024-06-02] MEDS: Atorvastatin 40 MG TAB 80 MG PO (21:28)
[2024-06-02] MEDS: Apixaban 5 MG TAB PO (21:28)
[2024-06-02] MEDS: guaiFENesin 600 MG TABCR PO (21:28)
[2024-06-03] VITALS (38 sets, daily range): BP systolic 80–117; BP diastolic 39–100; PULSE 79–113; RESP 5–37; TEMP 31–36.8; O2SAT 80–99
[2024-06-03] MEDS: guaiFENesin/CODEINE PHOSPHATE 10 ML CUP PO (04:21)
[2024-06-03 06:08] LABS: Abs Immature Grans 0.02 10^3/uL (0.0-0.06); Absolute Basophil Count 0.04 10^3/uL (0.0-0.2); Absolute Eosinophil Count 0.29 10^3/uL (0.0-0.7); Absolute Lymphocyte Count 1.02 10^3/uL (1.2-3.4); Absolute Monocyte Count 0.72 10^3/uL (0.1-0.8); Absolute Neutrophil Count 6.93 10^3/uL (1.2-6.7); Basophils % 0.4 %; Eosinophils % 3.2 %; HGB 7.3 g/dL (11.2-15.7); Immature Grans % 0.2 %; Lymphocytes % 11.3 %; MCH 30.9 pg (27.0-33.0); MCHC 29.2 % (32.0-36.0); MCV 106 fL (80-95); MPV 10.7 fL (8.0-11.0); Neutrophils % 76.9 %; Platelet Count 158 10^3/uL (130-400); RBC 2.36 10^6/uL (3.93-5.22); RDW 19.6 % (11.7-14.6); RDW-SD 75.7 fL; WBC 9.02 10^3/uL (4.4-10.8)
[2024-06-03 06:30] LABS: ALT 7 U/L (14-59); AST 16 U/L (15-37); Albumin 2.5 g/dL (3.4-5.0); Alkaline Phosphatase 58 U/L (46-116); Anion Gap 2.9 mmol/L (3-11); Bilirubin, Total 0.8 mg/dL (0.2-1.0); CO2 41.1 mmol/L (21.0-32.0); CREATININE 3.3 mg/dL (0.55-1.02); Calcium 9.4 mg/dL (8.5-10.1); Chloride 102 mmol/L (98-107); Estimated GFR 13.85 (mL/min/1.73m2); Glucose 102 mg/dL (74-106); Potassium 5.2 mmol/L (3.5-5.1); Sodium 146 mmol/L (136-145); Total Protein 6.4 g/dL (6.4-8.2)
[2024-06-03 06:31] LABS: BUN 95 mg/dL (7-18); Hypochromasia 1+; Macrocytosis 1+; Stomatocytes 2+
[2024-06-03] MEDS: Bumetanide 1 MG/4 ML VIAL 2 MG IVP ×2 (07:40→14:12)
[2024-06-03] MEDS: Normal Saline Flush 10 ML SYR IVP ×2 (07:41→20:50)
[2024-06-03] MEDS: amLODIPine 5 MG TAB PO (07:41)
[2024-06-03] MEDS: Magnesium Oxide 400 MG TAB PO (07:41)
[2024-06-03] MEDS: Vitamins B Comp w/C TAB 1 TAB PO (07:41)
[2024-06-03] MEDS: Benzonatate 200 MG CAP PO ×3 (07:41→20:49)
[2024-06-03] MEDS: Preservision CAPSULE 1 CAP PO (07:41)
[2024-06-03] MEDS: guaiFENesin 600 MG TABCR PO ×2 (07:41→20:49)
[2024-06-03] MEDS: Pantoprazole 40 MG TABCR PO (07:42)
[2024-06-03] MEDS: Allopurinol 100 MG TAB PO (07:42)
[2024-06-03] MEDS: Apixaban 5 MG TAB PO ×2 (07:42→20:49)
[2024-06-03] MEDS: Insulin Aspart 300 UNITS/3 ML PEN SC ×3 (08:00→16:52)
[2024-06-03] MEDS: Aspirin 81 MG CHEW PO (08:07)
--- NOTE | 2024-06-03 10:01 | PGE_ITS ---
Date of Service Date of service: 06/03/24 Time of Service: 10:02 Assessment and Plan Assessment and plan (1) Non-ST elevation (NSTEMI) myocardial infarction: Status: Acute Assessment and plan: Significant troponin increase with acute worsening of shortness of breath on admission c/w ACS. EKG reassuring. Troponins high continue to trend down slowly. Case reviewed by ED physician with Dr. House with [facility] cardiology. Recommneded heparin drip short term in case she develops chest pain. Continue this until 06/01 then back to DOAC She is also on aspirin along with her chronic high intensity statin. Recent LDL well controlled at 55. Work on diuresis 06/01/24 Notes reviewed, will keep on heparin until tomorrow, recheck troponins, and if they continue to decrease will switch to DOAC 06/02/24 Troponin's are much improved. Will dc heparin and c/w DOAC 06/03/24 Recheck troponin in the am. Much improved. On eliquis/asa/ (2) CHF (congestive heart failure): Status: Acute Assessment and plan: preserved LVEF, significant pulmonary HTN but nl right heart on echo 05/22 Overall picture c/w some degree of acute CHF, though exam and CXR are difficult to interpret Need strict I/Os, place marino. Her weight was up from discharge weight, down overnight BNaP is high but chronically high On bumetanide 1mg BID. It is hard to gauge response without clear u/o. This dose is only equivalent to 20mg IV torsemide or 40mg furosemide. With her low GFR will increase dose to 2mg BID Echo 05/23/24 Conclusion Normal left ventricular wall thickness and chamber size. Ejection fraction is 60 to 65%. Wall motion is normal Normal right ventricular size and function Both atria are severely enlarged Aortic valve is trileaflet and mildly sclerotic without stenosis or regurgitation Normal mitral valve with mild regurgitation Mild to moderate tricuspid regurgitation. There is severe pulmonary hypertension with an estimated right ventricular systolic pressure of 69 mmHg 06/02/24 PT does have a fairly robust EF. Pt does have severe pulm htn as well as moderate TR and bilateral enlarged atria (3) Acute on chronic respiratory failure with hypoxia and hypercapnia: Status: Acute Assessment and plan: She is chronic CO2 retainer but pCO2 above expected baseline given her HC03, and she is hypoxic compared to her baseline. On BiPAP/NIV here, Maynor from [facility] knows her well and is doing additional teaching. She needs to use her trilogy more at the SNF. Her CO2 was still high this morning, O2 okay, increase ventilation with BiPAP to blow off CO2 now. 06/02/24 In reviewing notes from her Group Fitness Assistant Department Head, pt does appear to have significant issues with non-compliance (4) Atrial fibrillation: Status: Chronic Assessment and plan: Anticoagulated, continue metoprolol for rate control, no change. 06/01/24 PT usually on eliquis but currently on heparin 2/2 concerns for ACS 06/02/24 Pt started back on eliquis 06/03/24 HR is 89, appropriate for rate control strategies (5) Insulin dependent type 2 diabetes mellitus: Status: Acute Assessment and plan: continue home insulin. A1c is 7%, goal is 7-8% given insulin use, age, comorbidities. On steroids here so we may need to increase glargine short term. consider GLP-1 shelter given CAD and BMI. (6) CKD stage 4 due to type 2 diabetes mellitus: Status: Chronic Assessment and plan: Cr slightly above baseline, trending slightly down despite diuresis. Corrected calcium is high, she likely has secondary hyperPTH, sent labs to confirm, pending 06/01/24 Pt's echo argues against pre-renal cause and pt does not have a history of post renal issues either. Will investigate if any renal usn have been placed before. Pt most likely has chronic renal disease 2/2 history of DM. Renal USN 03/11/23 IMPRESSION: Left nephrostomy tube. No visible hydronephrosis. Echogenic foci in left kidney could represent multiple stones and or air related to nephrostomy tube. Complex cystic area seen upper pole left kidney. This was not seen on prior CT. The findings could potentially be related to placement of nephrostomy tube. Follow-up recommended. Will repeat renal usn latest renal usn result IMPRESSION: Increased renal echogenicity, consistent with medical renal disease. Mild bilateral renal atrophy. PT is not at a point of HD 2/2 ESRD but this my recommendation is for her PCP discuss possible dialysis options fairly soon. (7) Acute hyperkalemia: Status: Acute Assessment and plan: Intially trended up to 6.2, but normalized s/p Lokelma. We can stop this as she is also getting diuresis. 06/01/24 Resolved 06/03/24 Mild hypokalemia today, will five lactulose x1 and recheck in the am. Will need fairly aggressive treatment and monitoring 2/2 a/ckd. (8) Anemia: Status: Chronic Assessment and plan: Chronic, a/w CKD. Near baseline. hem check stool x3 (9) Pyuria: Status: Acute Assessment and plan: recently treated. Some dysuria. Will await culture before treating 06/01/24 Urine cultures appeared contaminated. Will start some pyridium (pyridium was contraindicated, did not start) (10) Cough: Status: Acute Assessment and plan: added mucinex and tessalon perles Subjective Subjective Interval history since last seen: Pt seen and examined this am. No new complaints. POC d/w bedside nurse during ICU huddle Exam Narrative Exam Narrative: HEENT-NCAT HI-FLOW IN PLACE PERRLA NECK-NO LAD NO JVD CR-IR/IR NO MRG PULM-NO AMU SPEAKING IN COMPLETE SENTENCES NO WHEEZE BILAT ABD-PROTUBERENT EXT-NO CCE BILAT -MARINO IN PLACE WITH DARK COLORED URINE GEN-78 Y/O FEMALE WHO APPEARS HER STATED AGE, NO DISTRESS Objective Last Vital Signs Temp 36.7 C 06/03/24 04:01 Pulse 113 H 06/03/24 09:01 Resp 19 06/03/24 09:01 BP 93/39 L 06/03/24 09:01 Pulse Ox 86 L 06/03/24 09:01 Laboratory Results - last 24 hr 06/03/24 05:36 WBC 9.02 RBC 2.36 L Hgb 7.3 L Hct 25.0 L MCV 106 H MCH 30.9 MCHC 29.2 L RDW 19.6 H Plt Count 158 MPV 10.7 Immature Gran % 0.2 Neutrophils % 76.9 Lymphocytes % 11.3 Monocytes % 8.0 Eosinophils % 3.2 Basophils % 0.4 Nucleated RBC % 0.0 Absolute Neutrophils 6.93 H Absolute Lymphocytes 1.02 L Absolute Monocytes 0.72 Absolute Eosinophils 0.29 Absolute Basophils 0.04 RBC Morphology See Below Hypochromasia 1+ Macrocytosis 1+ Stomatocytes 2+ Sodium 146 H Potassium 5.2 H Chloride 102 Carbon Dioxide 41.1 H Anion Gap 2.9 L BUN 95 H* Creatinine 3.3 H Est GFR (CKD-EPI 2020) 13.85 Glucose 102 Calcium 9.4 Total Bilirubin 0.8 AST 16 ALT 7 L Alkaline Phosphatase 58 Total Protein 6.4 Albumin 2.5 L Time Spent with Patient Time Spent with Patient: 35-49 minutes Time was spent: preparing to see the patient(eg.review tests), obtaining and/or reviewing separately otained hiistory, ordering medications,tests, procedures, referring, communicating with other health manager intensive care, indepentently interpreting results, counseling the patient and care coordination
[2024-06-03] MEDS: Lactulose 20 GM/30 ML CUP PO (11:45)
[2024-06-03] MEDS: IRON SUCROSE COMPLEX 200 MG in Normal Saline 100 ML 400 MG IVPB (11:45)
[2024-06-03] MEDS: levoFLOXacin 500 MG TAB PO (11:45)
[2024-06-03] MEDS: Atorvastatin 40 MG TAB 80 MG PO (20:49)
[2024-06-03] MEDS: Insulin Glargine 300 UNITS/3 ML PEN 14 UNITS SC (20:50)
[2024-06-03] MEDS: LORazepam 2 MG/1 ML Oral Concentrate PO (20:51)
[2024-06-04] VITALS (43 sets, daily range): BP systolic 82–123; BP diastolic 39–104; PULSE 81–104; RESP 5–28; TEMP 36.5–36.9; O2SAT 79–99
[2024-06-04 05:59] LABS: Abs Immature Grans 0.04 10^3/uL (0.0-0.06); Absolute Basophil Count 0.04 10^3/uL (0.0-0.2); Absolute Eosinophil Count 0.36 10^3/uL (0.0-0.7); Absolute Lymphocyte Count 0.94 10^3/uL (1.2-3.4); Absolute Monocyte Count 0.74 10^3/uL (0.1-0.8); Absolute Neutrophil Count 7.45 10^3/uL (1.2-6.7); Basophils % 0.4 %; Eosinophils % 3.8 %; HCT 24.9 % (36.0-46.0); HGB 7.3 g/dL (11.2-15.7); Immature Grans % 0.4 %; Lymphocytes % 9.8 %; MCH 31.1 pg (27.0-33.0); MCHC 29.3 % (32.0-36.0); MCV 106 fL (80-95); MPV 10.8 fL (8.0-11.0); Monocytes % 7.7 %; Neutrophils % 77.9 %; Nucleated RBC 0.2 % (0.0-0.3); Platelet Count 157 10^3/uL (130-400); RBC 2.35 10^6/uL (3.93-5.22); RDW 19.8 % (11.7-14.6); RDW-SD 76.1 fL; WBC 9.57 10^3/uL (4.4-10.8)
[2024-06-04 06:24] LABS: ALT 11 U/L (14-59); AST 16 U/L (15-37); Albumin 2.3 g/dL (3.4-5.0); Alkaline Phosphatase 58 U/L (46-116); Anion Gap -1.7 mmol/L (3-11); Bilirubin, Total 0.8 mg/dL (0.2-1.0); CO2 43.7 mmol/L (21.0-32.0); CREATININE 3.4 mg/dL (0.55-1.02); Calcium 9.2 mg/dL (8.5-10.1); Chloride 102 mmol/L (98-107); Estimated GFR 13.36 (mL/min/1.73m2); Glucose 114 mg/dL (74-106); Potassium 4.9 mmol/L (3.5-5.1); Sodium 144 mmol/L (136-145); Total Protein 6.5 g/dL (6.4-8.2)
[2024-06-04 06:33] LABS: BUN 99 mg/dL (7-18); Troponin I 65 ng/L (<or=51)
[2024-06-04 06:36] LABS: Macrocytosis 1+
[2024-06-04] MEDS: Insulin Aspart 300 UNITS/3 ML PEN SC ×3 (08:05→16:38)
[2024-06-04] MEDS: Benzonatate 200 MG CAP PO ×2 (08:06→19:54)
[2024-06-04] MEDS: Aspirin 81 MG CHEW PO (08:06)
[2024-06-04] MEDS: Pantoprazole 40 MG TABCR PO (08:06)
[2024-06-04] MEDS: Apixaban 5 MG TAB PO ×2 (08:06→19:55)
[2024-06-04] MEDS: amLODIPine 5 MG TAB PO (08:06)
[2024-06-04] MEDS: Vitamins B Comp w/C TAB 1 TAB PO (08:07)
[2024-06-04] MEDS: Magnesium Oxide 400 MG TAB PO (08:07)
[2024-06-04] MEDS: guaiFENesin 600 MG TABCR PO ×2 (08:07→19:55)
[2024-06-04] MEDS: Allopurinol 100 MG TAB PO (08:07)
[2024-06-04] MEDS: Preservision CAPSULE 1 CAP PO (08:07)
[2024-06-04] MEDS: IRON SUCROSE COMPLEX 200 MG in Normal Saline 100 ML 400 MG IVPB ×2 (08:44→14:34)
[2024-06-04] MEDS: Normal Saline Flush 10 ML SYR IVP ×4 (09:17→22:41)
[2024-06-04] MEDS: Albuterol/Ipratropium 3 ML UPD VIAL UPD (12:38)
--- NOTE | 2024-06-04 13:36 | PGE_ITS ---
Date of Service Date of service: 06/04/24 Time of Service: 13:36 Assessment and Plan Assessment and plan (1) Non-ST elevation (NSTEMI) myocardial infarction: Status: Acute Assessment and plan: Significant troponin increase with acute worsening of shortness of breath on admission c/w ACS. EKG reassuring. Troponins high continue to trend down slowly. Case reviewed by ED physician with Dr. House with [facility] cardiology. Recommneded heparin drip short term in case she develops chest pain. Continue this until 06/01 then back to DOAC She is also on aspirin along with her chronic high intensity statin. Recent LDL well controlled at 55. Work on diuresis 06/01/24 Notes reviewed, will keep on heparin until tomorrow, recheck troponins, and if they continue to decrease will switch to DOAC 06/02/24 Troponin's are much improved. Will dc heparin and c/w DOAC 06/03/24 Recheck troponin in the am. Much improved. On eliquis/asa/ (2) CHF (congestive heart failure): Status: Acute Assessment and plan: preserved LVEF, significant pulmonary HTN but nl right heart on echo 05/22 Overall picture c/w some degree of acute CHF, though exam and CXR are difficult to interpret Need strict I/Os, place marino. Her weight was up from discharge weight, down overnight BNaP is high but chronically high On bumetanide 1mg BID. It is hard to gauge response without clear u/o. This dose is only equivalent to 20mg IV torsemide or 40mg furosemide. With her low GFR will increase dose to 2mg BID Echo 05/23/24 Conclusion Normal left ventricular wall thickness and chamber size. Ejection fraction is 60 to 65%. Wall motion is normal Normal right ventricular size and function Both atria are severely enlarged Aortic valve is trileaflet and mildly sclerotic without stenosis or regurgitation Normal mitral valve with mild regurgitation Mild to moderate tricuspid regurgitation. There is severe pulmonary hypertension with an estimated right ventricular systolic pressure of 69 mmHg 06/02/24 PT does have a fairly robust EF. Pt does have severe pulm htn as well as moderate TR and bilateral enlarged atria (3) Acute on chronic respiratory failure with hypoxia and hypercapnia: Status: Acute Assessment and plan: She is chronic CO2 retainer but pCO2 above expected baseline given her HC03, and she is hypoxic compared to her baseline. On BiPAP/NIV here, Maynor from [facility] knows her well and is doing additional teaching. She needs to use her trilogy more at the SNF. Her CO2 was still high this morning, O2 okay, increase ventilation with BiPAP to blow off CO2 now. 06/02/24 In reviewing notes from her Medical Administrative Assistant, pt does appear to have significant issues with non-compliance 06/03/24 last notes from Pulm/CC 1) Chronic respiratory failure with hypercapnia: (2) Obesity hypoventilation syndrome: Plan 76 year old female with CHF, AFib, pulmonary hypertension and YARELY/OHS on Trilogy. She is on 4lpm continuous O2. We obtained her Trilogy downloads which reveals she has not been compliant with the machine. She has worn this 10 days for an average of 2.8 hours in the past 317 days. I reviewed this information with her because she has been reporting wearing it nightly for 4-5 hours. I discussed that her oxygen is dropping and alarming at night time and it would be best if she wear the triology for a minimum of 4 hours a night. She will try to start doing so. I discussed how this will decrease her risk of acute on chronic hypoxic/hypercapnic respiratory failure. (4) Atrial fibrillation: Status: Chronic Assessment and plan: Anticoagulated, continue metoprolol for rate control, no change. 06/01/24 PT usually on eliquis but currently on heparin 2/2 concerns for ACS 06/02/24 Pt started back on eliquis 06/03/24 HR is 89, appropriate for rate control strategies (5) Insulin dependent type 2 diabetes mellitus: Status: Acute Assessment and plan: continue home insulin. A1c is 7%, goal is 7-8% given insulin use, age, comorbidities. On steroids here so we may need to increase glargine short term. consider GLP-1 chcf given CAD and BMI. (6) CKD stage 4 due to type 2 diabetes mellitus: Status: Chronic Assessment and plan: Cr slightly above baseline, trending slightly down despite diuresis. Corrected calcium is high, she likely has secondary hyperPTH, sent labs to confirm, pending 06/01/24 Pt's echo argues against pre-renal cause and pt does not have a history of post renal issues either. Will investigate if any renal usn have been placed before. Pt most likely has chronic renal disease 2/2 history of DM. Renal USN 03/11/23 IMPRESSION: Left nephrostomy tube. No visible hydronephrosis. Echogenic foci in left kidney could represent multiple stones and or air related to nephrostomy tube. Complex cystic area seen upper pole left kidney. This was not seen on prior CT. The findings could potentially be related to placement of nephrostomy tube. Follow-up recommended. Will repeat renal usn latest renal usn result IMPRESSION: Increased renal echogenicity, consistent with medical renal disease. Mild bilateral renal atrophy. PT is not at a point of HD 2/2 ESRD but this my recommendation is for her PCP discuss possible dialysis options fairly soon. (7) Acute hyperkalemia: Status: Acute Assessment and plan: Intially trended up to 6.2, but normalized s/p Lokelma. We can stop this as she is also getting diuresis. 06/01/24 Resolved 06/03/24 Mild hypokalemia today, will five lactulose x1 and recheck in the am. Will need fairly aggressive treatment and monitoring 2/2 a/ckd. (8) Anemia: Status: Chronic Assessment and plan: Chronic, a/w CKD. Near baseline. hem check stool x3 06/04/24 Pt with hem positive stool and anemia. Iron levels at 24. Replete. Would consider an outpatient evaluation with GS at the discretion of the PCP. (9) Pyuria: Status: Acute Assessment and plan: recently treated. Some dysuria. Will await culture before treating 06/01/24 Urine cultures appeared contaminated. Will start some pyridium (pyridium was contraindicated, did not start) 06/04/24 On levaquin (10) Cough: Status: Acute Assessment and plan: added mucinex and tessalon perles Subjective Subjective Interval history since last seen: Pt seen and examined in her room. Medical records review performed as far back as 2012. Able to review pulm note as well as PFT's. Pt still with significant SOB and weakness Exam Narrative Exam Narrative: HEENT-NCAT HI-FLOW IN PLACE PERRLA NECK-NO LAD NO JVD CR-IR/IR NO MRG PULM-NO AMU SPEAKING IN COMPLETE SENTENCES NO WHEEZE BILAT ABD-PROTUBERENT EXT-NO CCE BILAT -MARINO IN PLACE WITH DARK COLORED URINE GEN-78 Y/O FEMALE WHO APPEARS HER STATED AGE, NO DISTRESS Objective Last Vital Signs Temp 36.8 C 06/04/24 00:00 Pulse 81 06/04/24 12:41 Resp 24 06/04/24 12:41 BP 123/104 H 06/04/24 09:00 Pulse Ox 89 L 06/04/24 12:41 Laboratory Results - last 24 hr 06/04/24 05:46 WBC 9.57 RBC 2.35 L Hgb 7.3 L Hct 24.9 L MCV 106 H MCH 31.1 MCHC 29.3 L RDW 19.8 H Plt Count 157 MPV 10.8 Immature Gran % 0.4 Neutrophils % 77.9 Lymphocytes % 9.8 Monocytes % 7.7 Eosinophils % 3.8 Basophils % 0.4 Nucleated RBC % 0.2 Absolute Neutrophils 7.45 H Absolute Lymphocytes 0.94 L Absolute Monocytes 0.74 Absolute Eosinophils 0.36 Absolute Basophils 0.04 RBC Morphology See Below Macrocytosis 1+ Sodium 144 Potassium 4.9 Chloride 102 Carbon Dioxide 43.7 H Anion Gap -1.7 L BUN 99 H* Creatinine 3.4 H Est GFR (CKD-EPI 2020) 13.36 Glucose 114 H Calcium 9.2 Total Bilirubin 0.8 AST 16 ALT 11 L Alkaline Phosphatase 58 Troponin I 65 H* Total Protein 6.5 Albumin 2.3 L Time Spent with Patient Time Spent with Patient: 35-49 minutes Time was spent: preparing to see the patient(eg.review tests), obtaining and/or reviewing separately otained hiistory, ordering medications,tests, procedures, referring, communicating with other health residential care facility manager, indepentently interpreting results, counseling the patient and care coordination
[2024-06-04 18:47] LABS: BE (Venous) 15 mmol/L (-2-3); HCO3 (Venous) 40 mmol/L (23-28); O2 Sat (Venous) 79 %; TCO2 (Venous) 39 mmol/L (24-29); pH (Venous) 7.38 (7.31-7.41); pO2 (Venous) 43 mmHg
[2024-06-04 19:00] LABS: pCO2 (Venous) 68 mmHg (41-51)
[2024-06-04] MEDS: Atorvastatin 40 MG TAB 80 MG PO (19:55)
[2024-06-04] MEDS: LORazepam 2 MG/1 ML Oral Concentrate PO (19:56)
[2024-06-04] MEDS: Insulin Glargine 300 UNITS/3 ML PEN 14 UNITS SC (20:36)
[2024-06-04] MEDS: Normal Saline 1,000 ML 75 ML IV (22:40)
[2024-06-05] VITALS (57 sets, daily range): BP systolic 82–111; BP diastolic 37–71; PULSE 61–113; RESP 5–30; TEMP 31–36.9; O2SAT 81–99
[2024-06-05] MEDS: guaiFENesin/CODEINE PHOSPHATE 10 ML CUP PO (01:33)
[2024-06-05 06:36] LABS: HCT 23.6 % (36.0-46.0); MCH 30.8 pg (27.0-33.0); MCHC 29.2 % (32.0-36.0); MCV 105 fL (80-95); MPV 10.7 fL (8.0-11.0); Platelet Count 159 10^3/uL (130-400); RBC 2.24 10^6/uL (3.93-5.22); RDW 19.7 % (11.7-14.6); RDW-SD 76.4 fL; WBC 9.46 10^3/uL (4.4-10.8)
[2024-06-05 06:42] LABS: HGB 6.9 g/dL (11.2-15.7)
[2024-06-05 07:05] LABS: Anion Gap -0.2 mmol/L (3-11); CO2 43.2 mmol/L (21.0-32.0); CREATININE 3.5 mg/dL (0.55-1.02); Calcium 9.1 mg/dL (8.5-10.1); Chloride 103 mmol/L (98-107); Glucose 53 mg/dL (74-106); Potassium 4.8 mmol/L (3.5-5.1); Sodium 146 mmol/L (136-145)
[2024-06-05 07:07] LABS: BUN 104 mg/dL (7-18)
[2024-06-05] MEDS: guaiFENesin 600 MG TABCR PO (07:50)
[2024-06-05] MEDS: Benzonatate 200 MG CAP PO (07:50)
[2024-06-05] MEDS: Vitamins B Comp w/C TAB 1 TAB PO (07:50)
[2024-06-05] MEDS: amLODIPine 5 MG TAB PO (07:50)
[2024-06-05] MEDS: Preservision CAPSULE 1 CAP PO (07:50)
[2024-06-05] MEDS: Magnesium Oxide 400 MG TAB PO (07:50)
[2024-06-05] MEDS: Apixaban 5 MG TAB PO (07:51)
[2024-06-05] MEDS: Pantoprazole 40 MG TABCR PO (07:51)
[2024-06-05] MEDS: Allopurinol 100 MG TAB PO (07:51)
[2024-06-05] MEDS: Aspirin 81 MG CHEW PO (07:51)
--- NOTE | 2024-06-05 08:36 | CMPROGNOTE_ITS ---
Date of service: 06/05/24 Time of Service: 08:36 Care Management Progress Note Progress Note Text Progress Note Text: Mohan's condition continues to decline. She is requiring Bipap all of the time and her oxygen saturation has only been in the 80s for most of the day. In addition, she is anemic with a Hgb of 6.9 and her creatinine is increasing every day. The provider reached out to [facility] to request transfer however no beds are available. He also contacted [facility] and [facility]. She was accepted at [facility] and is waiting for a bed. Kami Schmidt from [employer] met with Mohan again today and reviewed the contents of her Advanced Directives with her son Abdias. Mohan remains a full code with all life sustaining treatments to be initiated. When a bed becomes available at [facility], Mohan will be intubated for transport. He son understands this and has been told there is concern that she may not be able to be extubated due to her respiratory compromise. Discharge Potential Discharge Needs: PCP F/U Appt Anticipated Barriers to Discharge: Medical Status Patient/Family Education Needs: Review discharge instructions, discuss Ask Me Three Transportation: Private vehicle Plan: Mohan remains critically ill in the ICU. Efforts have been made to transfer her to a tertiary care center as she is in acute renal failure, has increasing oxygen needs and is now bleeding rectally.In addition she has had an NSTEMI. Late in the day [facility] notified [facility] that they have a bed for her in their ICU and transport will be via ground transport at about 5:30 pm. CM will follow and continue to assess for discharge needs. Social Determinants of Health Screening Will the Patient Participate in the Screening?: Unable to obtain
[2024-06-05] MEDS: Normal Saline Flush 10 ML SYR IVP (09:15)
[2024-06-05 09:20] LABS: BE (Venous) 11 mmol/L (-2-3); HCO3 (Venous) 38 mmol/L (23-28); O2 Sat (Venous) 78 %; TCO2 (Venous) 37 mmol/L (24-29); pH (Venous) 7.29 (7.31-7.41); pO2 (Venous) 46 mmHg
[2024-06-05 09:22] LABS: pCO2 (Venous) 79 mmHg (41-51)
[2024-06-05 09:37] LABS: Bilirubin Negative (Negative); Blood Large (Negative); Clarity Cloudy (Clear); Glucose Negative (Negative); Ketones Negative (Negative); Leukocyte Esterase Moderate (Negative); Nitrite Negative (Negative); Specific Gravity 1.015 (1.005-1.025); Urobilinogen 0.2 mg/dL (Up to 0.2); pH 5.5 (5-8)
[2024-06-05 09:42] LABS: Bacteria Rare HPF (Negative); C & S Indicated? Yes; Casts Negative LPF (Negative); Crystals Negative HPF (Negative); Epithelial Cells Rare HPF (Negative); Mucus Negative (Negative); RBC >50 HPF (0-2); WBC >50 HPF (0-5)
[2024-06-05] MEDS: Miconazole 2% Topical Powder 85 GM BTL (10:55)
--- NOTE | 2024-06-05 13:55 | PCPN_ITS ---
Date of service: 06/05/24 Time of Service: 13:55 Assessment and Plan Assessment and plan (1) Non-ST elevation (NSTEMI) myocardial infarction: Status: Acute Assessment and plan: now off heparin drip continue ASA, Eliquis and statin (2) Acute hyperkalemia: Status: Acute Assessment and plan: 2/2 CKD progression? (3) Acute heart failure with preserved ejection fraction (HFpEF): Status: Acute Assessment and plan: Echo 05/23: EF preserved, severe pulm htn as well as moderate TR and bilateral enlarged atria (4) Acute on chronic respiratory failure with hypoxia and hypercapnia: Status: Acute Assessment and plan: on BiPAP 90% currently - plans for intubation prior to transfer - pt recently confirmed FULL Code status, including trials of intubation continues to retain CO2, despite multimedia services coordinator BiPAP (5) Impaired instrumental activities of daily living: Status: Acute Assessment and plan: son Abdias providing support in home (6) Deficit in activities of daily living (ADL): Status: Acute Assessment and plan: currently fully dependent - [facility]FC application pending per last check (7) CKD stage 4 due to type 2 diabetes mellitus: Status: Chronic Assessment and plan: w/trends towards stage 5, requiring dialysis previous conversations w/pt regarding dialysis, she would want to try this (8) Palliative care patient: Status: Acute Assessment and plan: PC will continue to follow pending discharge from [place] scheduled 09/19, consider sooner visit pending d/c dispo (9) ACP (advance care planning): Status: Acute Assessment and plan: reviewed with Abdias previous stated preferences, including review of AD from 2022 which has remained UTD in recent visits; would want all LST as long as able to communicate with friends/family, be conscious/aware of surroundings, live w/o incapacitating pain; current goals would be to try all treatments, re-evaluate pending her recovery - reviewed intubation concerns: may go into cardiac arrest, may not tolerate extubation, would then need to consider adjusting LST preferences, as it aligns with her AD reviewed outpatient dialysis requirements mailed copy of AD to Abdias for his records, and review if needed, encouraged call PC office to review any future ACP conversations/decisions prior to discharge home, etc spent 10m w/ACP Subjective Subjective Interval history since last seen: Mohan remains hospitalized at [facility] She has had an ongoing decline since previous PC visit on 05/31 - heparin drip d/c'd on 06/02 - now getting closer to ESRD, would need transfer for inpatient dialysis - has been on BIPAP consistently for days, continues to require to maintain oxygenation, continues to retain CO2; currently on 90% - has been more lethargic and less engaged pending transfer to [facility], who has accepted pending ICU bed avail ability - due to high O2 requirement, will require intubation for transfer - reviewed with [facility]/son Abdias earlier - concerns from anesthesia regarding cardiac arrest 2/2 medications, ensure awareness for son to present if desired Abdias is aware of potential transfer, he is aware of intubation and her previous preferences. He was not aware of outpatient dialysis requirements. he does not have a copy of an AD Exam Narrative Exam Narrative: General: not awake ill appearing female, lying in ICU bed HEENT: mouth open w/BIPAP mask; normocephalic, atraumatic Resp: labored, BiPAP mask in place, mouth open, accessory muscle use Objective Last Vital Signs Temp 98.2 F 06/05/24 13:01 Pulse 86 06/05/24 13:16 Resp 22 06/05/24 13:16 BP 97/54 L 06/05/24 13:01 Pulse Ox 90 L 06/05/24 13:16 Laboratory Results - last 24 hr 06/04/24 06/05/24 06/05/24 18:40 06:19 09:00 WBC 9.46 RBC 2.24 L Hgb 6.9 L* Hct 23.6 L MCV 105 H MCH 30.8 MCHC 29.2 L RDW 19.7 H Plt Count 159 MPV 10.7 VBG pH 7.38 VBG pCO2 68 H* VBG pO2 43 VBG HCO3 40 H VBG Total CO2 39 H VBG O2 Saturation 79 VBG Base Excess 15 H Sodium 146 H Potassium 4.8 Chloride 103 Carbon Dioxide 43.2 H Anion Gap -0.2 L BUN 104 H* Creatinine 3.5 H Est GFR (CKD-EPI 2020) 12.90 Glucose 53 L Calcium 9.1 Urine Color Red Urine Clarity Cloudy Urine pH 5.5 Ur Specific [place] 1.015 Urine Protein >=300 H Urine Ketones Negative Urine Blood Large H Urine Nitrite Negative Urine Bilirubin Negative Urine Urobilinogen 0.2 Ur Leukocyte Esterase Moderate H Urine RBC >50 H Urine WBC >50 H Ur Epithelial Cells Rare Urine Crystals Negative Urine Bacteria Rare Urine Casts Negative Urine Mucus Negative Ur Culture Indicated? Yes Urine Glucose Negative 06/05/24 09:06 WBC RBC Hgb Hct MCV MCH MCHC RDW Plt Count MPV VBG pH 7.29 L VBG pCO2 79 H* VBG pO2 46 VBG HCO3 38 H VBG Total CO2 37 H VBG O2 Saturation 78 VBG Base Excess 11 H Sodium Potassium Chloride Carbon Dioxide Anion Gap BUN Creatinine Est GFR (CKD-EPI 2020) Glucose Calcium Urine Color Urine Clarity Urine pH Ur Specific [place] Urine Protein Urine Ketones Urine Blood Urine Nitrite Urine Bilirubin Urine Urobilinogen Ur Leukocyte Esterase Urine RBC Urine WBC Ur Epithelial Cells Urine Crystals Urine Bacteria Urine Casts Urine Mucus Ur Culture Indicated? Urine Glucose
--- NOTE | 2024-06-05 15:30 | DI.RAD_ITS ---
Exam(s) XR PORTABLE CHEST AP EXAM: XR PORTABLE CHEST AP CLINICAL HISTORY: Post Intubation TECHNIQUE: 2D digital imaging was performed. COMPARISON: No exams were available for comparison FINDINGS: Multiple overlying monitoring leads and oxygen tubing. LUNGS: Poor pulmonary inflation. An endotracheal tube is been inserted with the tip lying at the lev el of the maria guadalupe and should be pulled back several cm. Heart: Mildly enlarged. Pulmonary vascular prominence. Worsening of bilateral pulmonary infiltrates /CHF. AORTA: Normal diameter. BONES: Unremarkable for age. Soft tissues: A nasogastric tube projects in the stomach. IMPRESSION: Status post placement of endotracheal tube which lies at the level of the maria guadalupe. Worsening bilateral pulmonary infiltrates and CHF DATA REPOSITORY: RADIATION DOSE DELIVERED:
[2024-06-05] MEDS: Vasopressin 20 UNITS/ML VIAL IV ×4 (15:56→16:15)
[2024-06-05] MEDS: VASOPRESSIN 50 UNITS in Normal Saline 497.5 ML 24 UNITS IV (15:56)
[2024-06-05] MEDS: PROPOFOL 1,000 MG/100 ML BTL 30.9 MG (15:56)
[2024-06-05] MEDS: Ketamine 50 MG/5 ML SYRINGE (15:57)
[2024-06-05] MEDS: Midazolam 2 MG/2 ML VIAL (15:57)
[2024-06-05] MEDS: Norepinephrine in D5W 8 MG/250 ML BAG 4 MG IV (16:04)
--- NOTE | 2024-06-05 16:15 | DI.RAD_ITS ---
Exam(s) XR PORTABLE CHEST AP POST LINE EXAM: XR PORTABLE CHEST AP POST LINE CLINICAL HISTORY: post intubation TECHNIQUE: 2D digital imaging was performed. COMPARISON: CR XR PORTABLE CHEST AP from 05/30/2024 CR XR PORTABLE CHEST AP from 06/05/2024 FINDINGS: The endotracheal tube has been pulled back and out of is in satisfactory position at the level of the upper aspect of the aortic arch. The nasogastric tube remains in the stomach. LUNGS: Pulmonary vascular prominence and bilateral infiltrates consistent with CHF. No definite foreman ge from prior. HEART: Normal size. AORTA: Normal diameter. BONES: Unremarkable for age. Soft tissues: Unremarkable. IMPRESSION: Satisfactory appendicitis name of endotracheal tube. DATA REPOSITORY: RADIATION DOSE DELIVERED:
[2024-06-05] MEDS: Normal Saline 250 ML 60 ML (16:20)
--- NOTE | 2024-06-05 16:36 | W.ANESVAS ---
Arterial Line Placement Date Performed: 06/05/24 Procedure Time: 15:48 Procedure Location: Intensive Care Unit Requesting Provider: Mark Topete Timeout Performed: Yes Sedation Given (Indicate Dose Given): No Sedation given Patient Mental Status: Awake Sterility: Hand Hygiene, Surgical Cap, Surgical Mask, Sterile Gloves, Sterile Drape/Sheet and Chlorhexidine Laterality: Left Insertion Site: Radial Arterial Line Catheter: 20G Arrow Arterial Line Procedure: 1% Lidocaine to skin and subcutaneous tissue with 25g needle, Vessel accessed with needle, Guidewire placed with ease, Catheter placed without resistance and Guidewire removed Dressing: Tegaderm Applied and Sutured in Place Ultrasound: Not Used Number of Attempts (See previous attempts in note section): 1 Procedure Tolerated: No Complications and Patient tolerated well Procedure Outcome: Successful Procedure Comment:: Sanya DUBON sutured line in place Performed By: Nika Adhikari
--- NOTE | 2024-06-05 16:42 | W.ANESAIR ---
Airway Management Note Procedure Date and Time DO NOT use this note for patients in the OR, Use Intraop Record Instead Date Performed: 06/05/24 Procedure Time: 15:50 Procedure Location Procedure Location: Intensive Care Unit Requesting Provider: Mark Topete Number of Previous Intubation attempts by other providers: 0 Procedure Type Procedure Type: Elective (semi-urgent, worsening respiratory failure, needed for transport) Pre-Induction Setup Sterility: Hand Hygiene and Surgical Cap Preinduction Setup: Standard monitors applied, BVM at bedside, Suction ready, Airway equipment ready, Medications ready, IV/IO access patent & flowing and Post induction medications ready Induction Induction Time: 15:57 Induction setup: Pt. evaluated prior to induction, Apneic Oxygenation (high flow NC) and Ear to Sternal Notch Induction Medications (Indicate Dose Given): Fentanyl IV Dose:: 100 mcg, Ketamine IV Dose:: 20 mg, Propofol (mcg/kg/min) Dose:: 50 mcg/kg/min, Rocuronium IV Dose:: 50 mg and Vasopressin (units) Dose:: Total of 7 units Mask Ventilation: None Induction Comment: See nursing documentation for medication doses and times. Airway Device Airway Type: Intubation Laryngoscopy: Atraumatic Laryngoscopy and Edentulous Airway Grade: 1 Airway Blades: Glidescope 3 Endotracheal Tube: Oral, Cuffed, Stylet Used and 7.0mm ETT Depth Where Secured (cm): 23 Placement Confirmation: Cuff inflated with minimally occlusive pressure, Secured with commercial device, Bilateral breath sounds and ETCO2 waveform present Number of Attempts (See previous attempts in note section): 1 Post Induction Management Post Induction Medications (Indicate Dose Given): Epinephrine IV (mcg/min) Dose:: 4 mcg/min and Vasopressin IV (units) Dose:: .04-.08 units/min Gastric Tube Gastric Tube: Placed by Anesthesia Gastric Tube Placement: Oral, Gastric Contents Suctioned and Placed on low continuous suction Tube Size (Fr): 14 Depth Secured (cm): 55 Procedure Complications Procedure Complications: None Procedure Outcome Procedure Outcome: Successful Procedure Comment: ETT withdrawn to 21cm at lower gum after CXR showed it to be a bit deep. Proceduralist Performed By: Nika Adhikari
--- NOTE | 2024-06-05 16:44 | DSE_ITS ---
Date of service: 06/05/24 Time of Service: 16:44 DS: Diagnosis Discharge Diagnosis (1) Non-ST elevation (NSTEMI) myocardial infarction: Status: Acute (2) Acute hyperkalemia: Status: Acute (3) Acute heart failure with preserved ejection fraction (HFpEF): Status: Acute (4) Acute on chronic respiratory failure with hypoxia and hypercapnia: Status: Acute (5) Impaired instrumental activities of daily living: Status: Acute (6) Deficit in activities of daily living (ADL): Status: Acute (7) CKD stage 4 due to type 2 diabetes mellitus: Status: Chronic (8) Palliative care patient: Status: Acute (9) ACP (advance care planning): Status: Acute Discharge Plan Disposition Patient Disposition: Transfer-Acute Inpatient Care Specific Acute Inpt Facility: [facility] Condition: Critical Discharge Details Reason For Visit: NSTEMI, hypoxic/hypercarbic respiratory failure Admit Date/Time: 05/30/24 16:16 Admit Provider: Kiran Vargas Attending Provider: Kiran Vargas Primary Care Provider: Laverne Sung Hospital Course Hospital Course: This is a 78-year-old female with a known history of obstructive sleep apnea, COPD and hypoventilation syndrome who per review of records is not using her trilogy as prescribed. She came in on the with worsening respiratory distress as well as concerns about her infection. She was admitted to the ICU for hypotension and CO2 retention. While in the ED as well as in the ICU the patient was noted to have an NSTEMI and a request was made to transfer to [facility] but they wanted to keep her here to see if she improved with heparin drip and conservative therapy. Over the ensuing few days it was noted that her oxygen requirement Increasing to the point where it became necessary to intubate her. Patient was intubated on 06/05/2024 and is currently on 4 mics of epi 50 of propofol 0.08 of note, the patient does have vasopressin. The patient also developed worsening kidney disease going from chronic to acute on chronic and will need to be evaluated for possible hemodialysis. I did have a discussion with the pt as well as her son who reiterated that they want every life saving measure employed. The patient has been accepted into transfer for [facility] and will be sent over there as soon as possible. Heme positive stool and is moderately to severely anemic with a hemoglobin currently of 6.9. Deferred transfusion until decision can be made about her hemodialysis status. history of Present Illness Chief Complaint: short of breath Narrative: 78-year-old morbidly obese female with past medical history of HFpEF, A-fib, BMI>40, pulmonary hypertension, IDDM and YARELY/OHS on trilogy with chronic hypoxic/hypercarbic respiratory failure requiring 4 L nasal cannula at baseline who presents to the emergency department with increased shortness of breath. She states she woke up at 3am feelign more short of breath with dry mouth. She has never had chest pain or palpitations since this started. She relates the dry mouth to her trilogy machine, which she was wearing. She was sleeping in the recliner as usual. She has felt more short of breath since then. Per EMS was on 15 liters with mask, typical O2 is 4 liters. She was given 1mg bumetanide in the ED. Of note she was admitted 05/22-05/24 for respiratory failure. She was not using her trilogy home respiratory and was hypoxic and hypercarbic. She was treated for CHF with bumetanide. She had and echo that was significant for pulmonary HTN. When she went on BiPAP, then her home machine here she improved and was discharged home. She was also treated for a UTI during that admission and had just completed her oral cefpoxime for that 05/29, though the culture grew mixed kamila. Assessment and Plan Assessment and plan (1) Non-ST elevation (NSTEMI) myocardial infarction: Status: Acute Assessment and plan: Significant troponin increase with acute worsening of shortness of breath. EKG reassuring. Troponins high but already trending down, treating respiratory failure and diuresis should help. Case reviewed by ED physician with Dr. House with [facility] cardiology. Will transition to heparin drip short term in case she develops chest pain, they would consider acute cath. She is also on aspirin along with her chronic high intensity statin. Recent LDL well controlled at 55. Try to keep O2 sats in high 80s (2) CHF (congestive heart failure): Status: Acute Assessment and plan: preserved LVEF, significant pulmonary HTN but nl right heart on echo last week. ED assessment c/w some degree of acute CHF, though exam and CXR are difficult to interpret Her weight is up from discharge weight BNaP is high but chronically high S/p bumetanide 1mg in ED, will continue this BID (3) Acute on chronic respiratory failure with hypoxia and hypercapnia: Status: Acute Assessment and plan: She is chronic CO2 retainer but pCO2 above expected baseline given her HC03, and she is hypoxic compared to her baseline. On NIV here, admit to ICU for close monitoring. Repeat ABG as her PO2 was still low, I don't want her hypoxic given NSTEMI (4) Atrial fibrillation: Status: Chronic Assessment and plan: Anticoagulated, continue metoprolol for rate control. (5) Insulin dependent type 2 diabetes mellitus: Status: Acute Assessment and plan: continue home insulin. get A1c consider GLP-1 group home (6) CKD stage 4 due to type 2 diabetes mellitus: Status: Chronic Assessment and plan: Cr slightly above baseline, continue to monitor. Corrected calcium is high, she likely has secondary hyperPTH, will get labs to confirm (7) Acute hyperkalemia: Status: Acute Assessment and plan: Mild, but acute. S/p calcium gluconate in ED. EKG reassuring. Should come down with loop diuretic. Repeat K+ this evening, if not coming down use lokelma. (8) Anemia: Status: Chronic Assessment and plan: Chronic, a/w CKD. Near baseline Exam(s) US RENAL EXAM: US RENAL CLINICAL HISTORY: worsening renal fx. TECHNIQUE: Mancia scale, color and spectral Doppler were used. COMPARISON: CT CT CHEST/ABD/PEL WO from 03/11/2023 FINDINGS: Exam is limited by patient body habitus. Right kidney: 7.7cm Echogenicity: Mildly increased Hydronephrosis: No Cyst or mass: No Nephrolithiasis: No Left kidney: 8.5cm Echogenicity: Mildly increased Hydronephrosis: No Cyst or mass: No Nephrolithiasis: No Bladder:Normal. Prevoid vol:111 cc Postvoid vol:50 cc. Unclamping of Ruiz catheter. IMPRESSION: Increased renal echogenicity, consistent with medical renal disease. Mild bilateral renal atrophy. Exam(s) XR PORTABLE CHEST AP EXAM: XR PORTABLE CHEST AP CLINICAL HISTORY: Shortness of breath TECHNIQUE: 2D digital imaging was performed of the chest. One image was obtained. An AP view was obtained. COMPARISON: CR XR CHEST 2V PA LATERAL from 12/01/2022 CR XR PORTABLE CHEST AP from 05/22/2024 FINDINGS: There is poor inspiration. MEDIASTINUM: Normal. HEART: Heart size is at the upper limits of normal. PULMONARY VASCULATURE: There is pulmonary venous congestion. LUNGS: The nodular density previously noted in the left perihilar region appears to represent pulmonary vessel. There are increased lung markings in the right base and the left lung base. PLEURAL SPACE: No pleural effusion or pneumothorax. BONE:Within normal limits for the patient's age. OTHER FINDINGS:Normal. IMPRESSION: 1. Mild pulmonary venous congestion. 2. Bilateral basilar infiltrates which may represent atelectasis or pneumonia. Please correlate clinically 3. Heart size is at the upper limits of normal. Patient Name: Jane Walker EXAM: Comprehensive 2D, Doppler, and color-flow Echocardiogram 05.23.2024 Patient Location: In-Patient Room/Bed: 219 Resident Manager: Dominic Melton RDCS (AE) Indications: CHF exacerbation Other Information Study Quality: Good Conclusion Normal left ventricular wall thickness and chamber size. Ejection fraction is 60 to 65%. Wall motion is normal Normal right ventricular size and function Both atria are severely enlarged Aortic valve is trileaflet and mildly sclerotic without stenosis or regurgitation Normal mitral valve with mild regurgitation Mild to moderate tricuspid regurgitation. There is severe pulmonary hypertension with an estimated right ventricular systolic pressure of 69 mmHg Wall motion Left Ventricle The left ventricle is normal size. Left ventricular systolic function is normal. The left ventricular ejection fraction is within the normal range. There is normal left ventricular wall thickness. There is normal LV segmental wall motion. There is no ventricular septal defect visualized. LVEF is 60-65%. Right Ventricle The right ventricle is normal size. The right ventricular systolic function is normal. Atria Left atrium is severely dilated. Right atrium is severely dilated. Aortic Valve The aortic valve is mildly sclerotic. Aortic valve is trileaflet. There is no aortic valvular stenosis. No aortic regurgitation is present. Mitral Valve The mitral valve is normal in structure. No evidence of mitral valve stenosis. Mild mitral regurgitation. Tricuspid Valve The tricuspid valve is normal in structure. There is no tricuspid valve stenosis. Mild to moderate tricuspid regurgitation. The RVSP is 69.0 mmHg. Pulmonic Valve The pulmonary valve is normal in structure. There is no pulmonic valvular s tenosis. Moderate pulmonic regurgitation. Great Vessels The aortic root is normal in size. The ascending aorta is normal in size. Aortic arch is not well visualized. IVC is normal in size and collapses >50% with inspiration. Pericardium Trace pericardial effusion. 2D Dimensions IVSD d PLAX 0.82 cm F: 0.6-1.0Ao Root d 3.03 cm F: 2.7 - 3.3 LVPW d PLAX 0.80 cm F: 0.6 - 1.0Ao Asc Diam d 3.32 cm F: 2.3 - 3.1 LVID d PLAX 4.69 cm F: 3.8 - 5.2 LVDs 3.02 cm F: 2.2 - 3.5 LV EF Teichholz 65.1 % FS35.62 % LV EDV (Teich)101.9 mL LV ESV (Teich)35.6 mL Stroke Vol Index (Teich)32.03 M-Mode TAPSE 1.95 cm (M/F) >1.7 Auto EF LV EDV A4C97.4 mLLV EDV A2C84.7 mLLV EDV BP90.4 mL LV ESV A4C34.3 mLLV ESV A2C32.6 mLLV ESV BP33.8 mL LVEF(%) A4C64.8 %LVEF(%) A2C61.5 %LVEF(%) BP62.7 % LV SV A4C63.1 mlLV SV A2C52.1 mlLV SV BP56.7 ml LV CO A4C5.9 L/minLV CO A2C4.2 L/minLV CO BP5.1 L/min HR A4C94.00 BPMHR A2C80.37 BPMLV EDV Index (BP) LA Volume LA Length A4C7.0 cmLA Length A2C5.5 cm LA Area A4C s 23.76 cm2LA Area A2C s 15.49 cm2 LA Vol A4C A-L68.61 mLLA Vol A2C A-L36.93 mLLA Vol Biplane A-L56.6 mL LA Vol/BSA A4C A-LLA Vol/BSA A2C A-LLA Vol/BSA BP A-L 27.4 mL/m2 LA Vol A4C MOD63.0 mLLA Vol A2C MOD35.1 mLLA Vol BP MOD52.5 mL RA Volume RA Area A4C23.5 cm2RA ESV A4C (A-L)74.0mLRA Vol/BSA A4C A-L RA Length A4C6.3 cmRA ESV A4C (MOD)68.9mL LV Diastology MV E' medial0.113 (>0.07 m/s)MV E Vmax 1.29 (0.4-1.3 m/s) MV E' lateral0.138 (>0.1 m/s) Aortic Valve AoV Vmax1.29 m/sLVOT Vmax 1.04 m/s AoV Peak Grad6.7 mmHgLVOT Peak Grad 4.4 mmHg AoV Area (Vmax)2.44 [id number] VTI0.229 m AoV VTI0.256 mLVOT Mean Grad 1.9 mmHg AoV Mean Tunde.0.91 m/sLVOT SV 69.13 mL AoV Mean Grad3.8 mmHgLVOT Diam s 1.95 cm AoV Area (VTI)2.70 cm2AV Regurg Peak Gr.6.70 mmHg Velocity Ratio 0.81 Mitral Valve MV Vmax TIPS 1.52 m/s MV Mean Grad 2.5 (<2mmHg) MV VTI 0.289 m Pulmonary Valve PV Vmax 0.79 (0.5-1.5 m/s)RVOT Vmax 0.69 m/s PV Peak Grad 2.5 mmHgRVOT Peak Gr.1.9 mmHg PV Mean Vel0.55 m/sRVOT VTI0.126 m PV Mean Grad 1.3 mmHgRVOT Mean Gr.1.0 mmHg NM ED Velocity 1.39 m/s NM ED Grad 7.8 mmHg Tricuspid Valve RA Pressure 3.00 mmHgTR Vmax 4.06 m/s TR Peak Grad 65.9 mmHg RVSP (TR) 69.0 mmHg Ordered By: Wilber Rodríguez M.D. CC: Home Meds and New Rx's Prescriptions: Continued calcium carbonate-vitamin D3 600 mg-20 mcg (800 unit) tablet 1 tab PO DAILY acetaminophen [Tylenol Extra Strength] 500 mg tablet 500 mg PO Q6H PRN clotrimazole 1 % cream 1 applic topical BID Qty: 45 0RF Rx Instructions: apply liberal amount until rash to breasts and skin folds is resolved magnesium oxide 400 mg (241.3 mg magnesium) tablet 400 mg PO DAILY Qty: 90 3RF Rx Instructions: Low magnesium insulin glargine 100 unit/mL (3 mL) insulin pen 14 unit subcut HS Qty: 30 1RF Preservision capsule 1 cap PO DAILY Patient Comments: One in the morning and one at night. dapagliflozin propanediol [Farxiga] 5 mg tablet 5 mg PO QAM Qty: 90 3RF nystatin 100,000 unit/gram powder 1 applic topical TID Qty: 60 0RF Rx Instructions: apply liberally to breast folds until rash resolved pantoprazole [Protonix] 40 mg tablet,delayed release (DR/EC) 40 mg PO DAILY Qty: 90 3RF Rx Instructions: h/o GI bleed, stomach protection insulin aspart U-100 [Novolog FlexPen U-100 Insulin] 100 unit/mL (3 mL) insulin pen See Rx Instructions subcut AC MDD 30 units Qty: 90 3RF Rx Instructions: For diabetes as directed with meals sliding scale: if glucose 100 or less:0units insulin 101-150: 2 units 151-200: 4 units 201-250: 6 units 251-300: 8 units over 300: 10 units atorvastatin 80 mg tablet 80 mg PO QHS Qty: 90 3RF Rx Instructions: Cholesterol bismuth subsalicylate [Anti-Diarrheal] 262 mg/15 mL suspension 524 mg PO QID gabapentin 5%-amitriptyine 3%-clonidine 0.2%-lido 5% cream 1 applic topical .1-3X/DAY Rx Instructions: APPLY TOPICALLY TO TREATMENT AREA 1-3 TIMES DAILY amlodipine 5 mg tablet 5 mg PO DAILY Rx Instructions: TAKE ONE TABLET BY MOUTH EVERY DAY Eliquis 5 mg tablet 5 mg PO BID Rx Instructions: TAKE ONE TABLET BY MOUTH TWICE A DAY sennosides [senna] 8.6 mg tablet 8.6 mg PO HS PRN PRN (Reason: constipation) Rx Instructions: Medication trial for constipation (see if better tolerated than Miralax) torsemide 20 mg tablet 20 mg PO DAILY allopurinol 100 mg tablet 100 mg PO DAILY Rx Instructions: TAKE ONE TABLET BY MOUTH EVERY DAY FOR GOUT PREVENTION No Action (DME) 3XL incontinence briefs See Rx Instructions .Route .MEDSUPPLY Qty: 30 2RF Rx Instructions: Uses one nightly at bedtime for urge incontinence docusate sodium [Colace] 100 mg capsule 100 mg PO BID PRN (DME) Oxygen Tank See Rx Instructions .ROUTE .MEDSUPPLY Qty: 1 0RF Rx Instructions: 2-5L via NC continuous (DME) Wheelchair See Rx Instructions .Route .MEDSUPPLY Qty: 1 0RF Rx Instructions: As directed (DME) FreeStyle Bradley 2 Sensor Kit See Rx Instructions .ROUTE .MEDSUPPLY Qty: 2 11RF Rx Instructions: As directed; on insulin AC & HS for goal A1C 8% (DME) pen needle, diabetic [BD Ultra-Fine Mini Pen Needle] 31 gauge x 3/16 needle See Rx Instructions .ROUTE .COMPLEX Qty: 100 6RF Dose Instruction: USE FOUR TIMES A DAY Rx Instructions: USE FOUR TIMES A DAY vitamin B complex-folic acid [B Complex 1 (with folic acid)] 0.4 mg tablet See Rx Instructions .ROUTE .COMPLEX Qty: 90 3RF Dose Instruction: TAKE ONE TABLET BY MOUTH EVERY DAY Rx Instructions: TAKE ONE TABLET BY MOUTH EVERY DAY polyethylene glycol 3350 [ClearLax] 17 gram/dose powder 17 g PO DAILY PRN PRN Discharge Instructions Activity:: bed bound Equipment/Supplies:: No Equipment Needed Diet:: npo Discharge Orders Discharge Orders: Discharge Order (Routine); Ordered 06/05/24 Ordered By: Mark Topete DS: Summary Time Spent with Patient providing and/or coordinating discharge services: Greater than 30 minutes Status at Discharge Functional status at discharge: bed bound Overall status at discharge: patient is not back to baseline Mental Status: other Speech and Movement: other Mood: other Affect: other Quality:SDOH Health Related Social Needs: No Data to Display Exam Narrative Exam Narrative: Head eyes ears nose and throat: Normal cephalic atraumatic she is intubated Neck: No lymphadenopathy no JVD no thyromegaly Cardiovascular: irregularly irregular no murmurs gallops Lungs: Bilateral wheeze with expiration Abdomen: Protuberant bowel sounds active Extremities: No cyanosis clubbing or edema bilaterally Neurologic: Not testable secondary to intubation psych not testable due to current intubation Psych Mental Status: other Speech and Movement: other Mood: other Affect: other DS: Data Vitals/I&O Vitals and I&O: Vital Signs Temperature 36.8 C 06/05/24 13:01 Temperature Source Temporal Artery Scan 06/05/24 07:35 Pulse 75 06/05/24 16:02 Pulse 79 06/05/24 16:02 Respiratory Rate 5 L 06/05/24 16:02 Respiratory Effort Normal, Non-Labored 05/30/24 19:35 Respiratory Depth Shallow 05/30/24 19:35 Respiratory Pattern Normal 05/30/24 19:35 Blood Pressure 108/55 L 06/05/24 16:01 Blood Pressure Mean 71 06/05/24 16:01 Blood Pressure Position Supine 05/30/24 19:35 Pulse Oximetry 99 06/05/24 16:02 Respiratory End-tidal CO2 48 06/05/24 16:01 Oxygen Delivery Method Bi-pap 06/05/24 07:35 Oxygen Flow Rate 50 06/05/24 08:23 Fraction of Inspired Oxygen (FIO2) 85 06/05/24 14:17 End Tidal Co2 69 05/30/24 13:25 Pain Level 5 06/01/24 07:50 Comment BP cuff on R forearm 06/04/24 20:30 Comment prior shift 06/03/24 20:02 Arterial Systolic 113 06/05/24 16:02 Arterial Diastolic 45 06/05/24 16:02 Arterial Mean 65 06/05/24 16:02 Intake & Output 06/04/24 06/05/24 06/05/24 23:59 11:59 23:59 Intake Total 110 / 470 650 / 1550 900 / 1550 Output Total 575 / 1175 500 / 500 Balance -465 / -705 150 / 1050 900 / 1050 Weight 103.6 kg Intake: IV 110 / 220 900 / 900 Oral 650 / 650 Output: Urine 575 / 1175 500 / 500 Other: Urine Color Dark Carlee Dark Carlee Urine Appearance Cloudy Sediment Sediment Clots Stool Size Smear Data Completed and Pending Labs on day of discharge: Labs from last 24 hours 06/05/24 06/05/24 06/05/24 09:06 09:00 06:19 WBC 9.46 RBC 2.24 L Hgb 6.9 L* Hct 23.6 L MCV 105 H MCH 30.8 MCHC 29.2 L RDW 19.7 H Plt Count 159 MPV 10.7 VBG pH 7.29 L VBG pCO2 79 H* VBG pO2 46 VBG HCO3 38 H VBG Total CO2 37 H VBG O2 Saturation 78 VBG Base Excess 11 H Sodium 146 H Potassium 4.8 Chloride 103 Carbon Dioxide 43.2 H Anion Gap -0.2 L BUN 104 H* Creatinine 3.5 H Est GFR (CKD-EPI 2020) 12.90 Glucose 53 L Calcium 9.1 Urine Color Red Urine Clarity Cloudy Urine pH 5.5 Ur Specific [place] 1.015 Urine Protein >=300 H Urine Ketones Negative Urine Blood Large H Urine Nitrite Negative Urine Bilirubin Negative Urine Urobilinogen 0.2 Ur Leukocyte Esterase Moderate H Urine RBC >50 H Urine WBC >50 H Ur Epithelial Cells Rare Urine Crystals Negative Urine Bacteria Rare Urine Casts Negative Urine Mucus Negative Ur Culture Indicated? Yes Urine Glucose Negative 06/04/24 18:40 WBC RBC Hgb Hct MCV MCH MCHC RDW Plt Count MPV VBG pH 7.38 VBG pCO2 68 H* VBG pO2 43 VBG HCO3 40 H VBG Total CO2 39 H VBG O2 Saturation 79 VBG Base Excess 15 H Sodium Potassium Chloride Carbon Dioxide Anion Gap BUN Creatinine Est GFR (CKD-EPI 2020) Glucose Calcium Urine Color Urine Clarity Urine pH Ur Specific [place] Urine Protein Urine Ketones Urine Blood Urine Nitrite Urine Bilirubin Urine Urobilinogen Ur Leukocyte Esterase Urine RBC Urine WBC Ur Epithelial Cells Urine Crystals Urine Bacteria Urine Casts Urine Mucus Ur Culture Indicated? Urine Glucose 06/05/24 09:00 Urine - Reflex from Urine Culture - Pending Preliminary micro results at discharge 06/01/24 08:48 Blood Culture - Preliminary Blood NO GROWTH 96 HOURS 06/01/24 08:40 Blood Culture - Preliminary Blood NO GROWTH 96 HOURS 06/05/24 09:00 Urine Culture - Pending Urine - Reflex from [facility] All Active Problems (Updated 06/02/24 @ 17:25 by Mark Topete MD) Cough (Acute) Pyuria (Acute) Discharge planning issues (Acute) Non-ST elevation (NSTEMI) myocardial infarction (Acute) Acute hyperkalemia (Acute) Acute heart failure with preserved ejection fraction (HFpEF) (Acute) Acute on chronic respiratory failure with hypoxia and hypercapnia (Acute) Acute hypercapnic respiratory failure (Acute) Insulin dependent type 2 diabetes mellitus (Acute) History of frostbite (Acute) Nerve pain (Acute) Macular degeneration of both eyes (Acute) Diabetic peripheral neuropathy (Acute) ACP (advance care planning) (Acute) Right hand paresthesia (Acute) Palliative care patient (Acute) Ureteral stone (Acute ~11/2022) Nephrostomy tube Right thyroid nodule (Acute ~11/2022) Impaired instrumental activities of daily living (Acute) Deficit in activities of daily living (ADL) (Acute) Hyperuricemia (Acute) Gout (Chronic) 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) Respiratory failure with hypoxia and hypercapnia (Chronic) Chronic O2 CHF (congestive heart failure) (Acute 02/23/14) Preserved EF (10/2020 & 08/2021 ECHO) Obstructive sleep apnea (Chronic 02/23/14) 2022: Trilogy; Sleep Med Referral, 04/17/2019-->Very severe YARELY; CPAP ([facility]) with continuous O2, new Panda C-Pap 01/2021 Type II diabetes mellitus (Chronic) Hypertension (Chronic) Hyperlipidemia (Chronic) Atrial fibrillation (Chronic) Apixaban Anemia (Chronic) Pulmonary hypertension (Chronic) Dependence on supplemental oxygen (Chronic) YARELY + Pulm HTN Chronic low back pain (Chronic 07/24/15) CT-lumbar spine 2019-- Severe multilevel degenerative changes in the lumbar spine resulting in neural foraminal and central spinal canal stenosis. Chronic anticoagulation (Chronic) AF--Apixaban Risk for falls (Chronic) Sedentary lifestyle (Chronic) B12 deficiency (Chronic) Start B12 injections; elevated MCV-->converted to oral 03/2023 Obesity hypoventilation syndrome (Chronic) Obesity + Severe YARELY + Chronic Hypercapnia Dependent on walker for ambulation (Chronic) Hypomagnesemia (Acute ~07/2021) Mild mitral valve regurgitation (Acute ~08/2021) ECHO Trace tricuspid valve regurgitation (Acute ~08/2021) ECHO Medical History Bradycardia Closed stable burst fracture of ninth thoracic vertebra [facility] Pain & Spine-03/01/23 Diverticulosis Knee pain, left Pressure sore on buttocks Trigger finger, right middle finger Injection: 05/04/2022 Right carpal tunnel syndrome Lipoma Restrictive lung disease (~03/2014) PFTs validated 04/04/2014-->see scanned docs Gout attack (~10/2020) R podagra, first attack 10/2020-->treated with colchine, effective Sciatica of right side without back pain RX Medrol Dietary counseling reviewed sodium levels in her food, how to count mg, goal of 1500 mg daily due to CHF Renal calculi Non obstructive per CT Peptic ulcer of duodenum [facility] Path reports upper endoscopy; RX Carafate Female hirsutism Carpal tunnel syndrome, bilateral (12/17/16) Lipoma of arm Heme + stool [facility] Upper GI Endoscopy Peptic Duodenitis (pathology report); repeat hemoccults NEG 11/2019 Folate deficiency Low 12/2018; resolved 05/2019 labs; discontinued 02/05/2020 Iron deficiency EGD 05/23/19 at [facility]; discont supp iron & vit c 02/05/2020; Hgb stable and iron constipating; she will obtain dietarily YARELY (obstructive sleep apnea) Spinal stenosis, lumbar HTN (hypertension) Insulin dependent diabetes mellitus Edentulous H/O rotator cuff tear H/O fracture of nose h/o elbow fx Adult body mass index 50.0-59.9 Surgical History History of total knee arthroplasty bilateral History of total abdominal hysterectomy and bilateral salpingo-oophorectomy (~02/1999) History of shoulder surgery Right shoulder repair - 2004 History of carpal tunnel repair Left- 1998 Right- 2017 Colonoscopy - MAC (08/14/16) Biopsy, Temporal Artery (01/18/15) DR.C YOUNG History of total bilateral knee replacement Family History Mother Heart disease Father Heart disease Lung cancer Brother Heart disease AAA (abdominal aortic aneurysm, ruptured) Brother Obesity Son No problems noted. Daughter Stillborn, abnormal Daughter No problems noted. 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 Pets and animals: Yes Pets and animals: cat(s) Sexually active: No Do you think of yourself as: straight/heterosexual Current gender identity: female What is your relationship status?: How often do you talk on the phone with friends or family?: once per week How often do you get together with friends or relatives?: once per week Panel score (0-1 are the most socially isolated patients): 0 What type of physical activity do you participate in: none and sedentary lifestyle Special jakob needs: No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
[2024-06-05] MEDS: PROPOFOL 1,000 MG/100 ML BTL 37.1 MG (17:38)
[2024-06-05 18:02] LABS: BE (Venous) 8 mmol/L (-2-3); HCO3 (Venous) 34 mmol/L (23-28); O2 Sat (Venous) 94 %; TCO2 (Venous) 33 mmol/L (24-29); pH (Venous) 7.33 (7.31-7.41); pO2 (Venous) 70 mmHg
[2024-06-05 18:05] LABS: pCO2 (Venous) 65 mmHg (41-51)
[2024-06-05] MEDS: fentaNYL 100 MCG/2 ML VIAL (18:11)
[2024-06-05] MEDS: PROPOFOL 1,000 MG/100 ML BTL 41 MG (18:35)
--- NOTE | 2024-06-05 19:39 | NUR.NOTE ---
Nursing Note: Intubation and mechanical Ventilation of Jane Walker? 1945 06/05/2024 1551 Pt was placed on 100% on the bipap to preoxygenate prior to intubation. 1556 Drips started: Vasopressin @ 0.04 units/min Propofol @ 50 mcg/kg/min 1556 Following meds given IV Push by Beni ELLIS: Vasopressin 1 Unit 1557 Midazolam 2 mg Fentanyl 100 mcg Ketamine 20 mg 1558 Rocuronium 50 mg All followed by Normal Saline flushes 1558 Bipap off 1559 Patient intubated by Jane ELLIS Cuff inflated by Maynor Mendosa RT Ambu Bagging done by Jane ELLIS to Maynor Mendosa RT ET tube at 22 cm at lipline ETCO2 46 BP via Art Khev=106/55 (71), HR 67 1600 Patient was hooked up to the mechanical ventilator by Maynor Mendosa RT 1601 Oxygen Saturation via vent was at 99% Note Propofol running at 50 mcg and Vasopressin running @ 0.04 Units 1603 Soft Arm Restraints applied. 1604 Norepinephrine 4 mcg given from Norepinephrine bag by Beni ELLIS 1608 Marcelino Gastric tube inserted by Jane ELLIS 1 Unit Vasopressin given by Beni ELLIS AND Vasopressin drip increased to 0.08 Units 1609 Mechanical Ventilation Settings: FIO2 100%, RR 12 Art BP= 95/40, HR 63, Sat 89% 1609 Vasopressin 2 Units given by Beni ELLIS 1612 Mechanical Ventilator Settings: TV 330 RR 12 Peep 8 FIO2 100 % I:E = 1:4 1615 Vasopressin 3 Units given by Beni ELLIS 1616 BP 84/36 (51) 1618 Chest Xray done 1620 Epinephrine drip at 4 mg 1623 ET Tube pulled back 2 cm Now ET tube at 21 cm at gumline 1624 Chest Xray redone 1625 BP via Art line= 111/43, RR12, Sao2 97, HR 67 Vent settings remain as documented above. Patient stable at this time.
== END 2024-06-05 18:30 | disposition short-term general hospital (02) | DRG 280 ==
LOC: ER 13:22 → ICU 18:08
PROVIDERS: Family Medicine; Admitting Provider Family Medicine; Emergency Provider Emergency Medicine; PCP Nurse Practitioner Adult Health; Responsible Provider Hospitalist; Visit Provider Family Medicine
DX: I21.A1 Myocardial infarction type 2 (principal); I50.31 Acute diastolic (congestive) heart failure; J96.21 Acute and chronic respiratory failure with hypoxia; J96.22 Acute and chronic respiratory failure with hypercapnia; N18.4 Chronic kidney disease, stage 4 (severe); I13.0 Hypertensive heart and chronic kidney disease with heart failure and stage 1 through stage 4 chronic kidney disease, or unspecified chronic kidney disease; E66.2 Morbid (severe) obesity with alveolar hypoventilation; N25.81 Secondary hyperparathyroidism of renal origin; I48.91 Unspecified atrial fibrillation; E11.22 Type 2 diabetes mellitus with diabetic chronic kidney disease; E87.5 Hyperkalemia; D50.9 Iron deficiency anemia, unspecified; R82.81 Pyuria; R05.9 Cough, unspecified; I27.20 Pulmonary hypertension, unspecified; Z99.81 Dependence on supplemental oxygen; Z79.4 Long term (current) use of insulin; E11.42 Type 2 diabetes mellitus with diabetic polyneuropathy; E78.5 Hyperlipidemia, unspecified; Z79.01 Long term (current) use of anticoagulants; M48.061 Spinal stenosis, lumbar region without neurogenic claudication; E53.8 Deficiency of other specified B group vitamins; Z96.653 Presence of artificial knee joint, bilateral; Z74.09 Other reduced mobility; I25.10 Atherosclerotic heart disease of native coronary artery without angina pectoris; I08.1 Rheumatic disorders of both mitral and tricuspid valves; I95.9 Hypotension, unspecified
CPT/HCPCS: 36410; 36620; 31500; 00123; 36415; 36592; 71045; 76604; 76770; 80048; 80053; 82805; 85027; 87040; 87637; 93005; 93308; 96365; 96375; 99291; 36600; 81003; 81015; 82270; 82330; 83036; 83540; 83550; 83880; 83970; 84100; 84132; 84484; 85014; 85018; 85025; 85730; 87086; 93010; 94002; 94660; 99223; 99232; 99233; 99239; J0612; J0696; J1644; J1756; J1815; J1939; J2250; J2598; J2704; J3010; J3490; J7620